=== PATIENT | male | born 1945 | race Caucasian/White ===

== ENCOUNTER → 2016-09-26 | Outpatient (CLI) | payer MEDICARE, MEDICAID ==
[~2016-09-26] MED LIST: ALDA25TA2 PO; CARV3.12 PO; DEMA20TA6 PO; DIGO0.12 PO; DOXY10CA PO; FINA5TAB2 PO; FLOM5CAP PO; GABA-279 PO; GABA800T PO; INSUDET SC; INSUH10VL SC; INSULADS SC; INSULANT SC; LANTINJ4 SC; LASI40TA PO; LIDO4CR TOP; LISI-542 PO; LYRI200C PO; OMEP20TA PO; PLAV75TA38 PO; POLYOPD OU; RANE1000 PO; SENN1TAB2 PO; SPIR25TA2 PO; TAMS0.4C2 PO; TORS20TA2 PO; TRAZ25TA PO
--- NOTE | 2016-09-26 18:01 | REP ---
Chest x-ray: Two views. History: CHF. Hypertension. Dyspnea. Hematuria. Comparison chest x-ray December 31, 2015. Findings: A unipolar pacemaker is seen via the left side. Moderate cardiomegaly is observed. The patient status post prior sternotomy with multiple interrupted metallic sternotomy wires. No free pleural effusion is seen. There is some fissural thickening. Interstitial markings are slightly prominent. Impression: CHF pattern. Slightly prominent interstitial markings improved from December 31, 2015. Cardiomegaly with pacemaker. No acute infiltrate. Signed by Robert Solano MD 09/26/2016 10:14 P
[2016-09-26 18:17] LABS: ALBUMIN 3.9 GM/DL (3.2-5.2); ALBUMIN/GLOBULIN RATIO 1.26 (1.00-1.93); BILIRUBIN,TOTAL 3.1 MG/DL (0.2-1.0); CALCIUM LEVEL 9.2 MG/DL (8.8-10.2); CREATININE FOR GFR 1.45 MG/DL (0.70-1.30); GLOMERULAR FILTRATION RATE 50.9 (>42); POTASSIUM SERUM 3.6 MEQ/L (3.5-5.1)
[2016-09-26 18:35] LABS: MEAN CORPUSCULAR HEMOGLOBIN 28.9 pg (27.0-33.0); MEAN CORPUSCULAR HGB CONC 32.9 g/dl (32.0-36.5); MEAN CORPUSCULAR VOLUME 87.9 fl (80.0-96.0); RED CELL DISTRIBUTION WIDTH 14.1 % (11.5-14.5); WHITE BLOOD COUNT 10.2 K/mm3 (4.0-10.0)
== END ==
LOC: M SMT 14:48
PROVIDERS: ATTEND Internal Medicine Cardiovascular Disease
DX: I50.9 Heart failure, unspecified (principal); I10 Essential (primary) hypertension; I25.10 Atherosclerotic heart disease of native coronary artery without angina pectoris; R06.00 Dyspnea, unspecified; R60.9 Edema, unspecified; R31.9 Hematuria, unspecified

== ENCOUNTER 2016-11-28 15:03 | Inpatient (IN) | payer MEDICARE, MEDICAID ==
[~2016-11-28] VITALS: Ht 162.6 cm; Wt 78.6 kg
[2016-11-28] MEDS ORDERED: FLUTISP (15:27)
[2016-11-28] MEDS ORDERED: FLOM5CAP PO (15:27)
[2016-11-28] MEDS ORDERED: FUROSEMIDE 100 MG/10 ML VIAL (J1940) IV ONE (16:30)
[2016-11-28 17:27] LABS: BASO % 0.4 % (0.0-1.0); EOS # 0.2 K/mm3 (0.0-0.50); EOS % 2.1 % (0.0-3.0); LARGE UNSTAINED CELL # 0.2 K/mm3 (0.0-0.4); LARGE UNSTAINED CELL % 1.8 % (0.0-4.0); LYMPH # 2.3 K/mm3 (1.5-4.5); LYMPH % 22.6 % (24.0-44.0); MEAN CORPUSCULAR HEMOGLOBIN 28.8 pg (27.0-33.0); MEAN CORPUSCULAR HGB CONC 31.8 g/dl (32.0-36.5); MEAN CORPUSCULAR VOLUME 90.6 fl (80.0-96.0); MONO # 0.7 K/mm3 (0.0-0.8); MONO % 7.4 % (0.0-5.0); NEUTROPHILS # 6.6 K/mm3 (1.8-7.7); NEUTROPHILS % 65.7 % (36.0-66.0); PLATELET COUNT, AUTOMATED 159 k/mm3 (150-450)
--- NOTE | 2016-11-28 17:31 | REP ---
AP PORTABLE CHEST: 11/28/2016 at 04:35 PM.: Clinical history: Dyspnea and cough. Comparison: Chest x-ray 09/26/2016, 12/31/2015, portable chest 12/19/2015. Findings: Sternotomy wires with many of the wires fragmented and mediastinal clips unchanged. There is a single lead AICD pacer overlying the left upper chest with lead tip terminating in the right ventricle, unchanged. Cardiomegaly is seen with the heart size somewhat exaggerated by the lordotic portable chest. There is some minimal venous hypertension. No definite right effusion but a moderate-sized left effusion and basilar atelectasis or infiltrate noted. I do not see pneumothorax or pneumomediastinum. The aorta is mildly tortuous. Airway intact bony thorax shows no focal lesion but does have degenerative changes in the spine and shoulders. No free air. Impression: 1. Cardiomegaly with some venous hypertension and moderate sized right effusion with basilar compressive atelectasis or infiltrate. I cannot define a definite left effusion. No pneumothorax, no pneumomediastinum. 2. Single lead AICD pacer with sternotomy wires present which many are fragmented and mediastinal clips, all unchanged. 3. Tortuous aorta unchanged. PA and lateral chest may be helpful when able. Signed by Randy Harrison MD 11/28/2016 08:16 P
[2016-11-28 17:55] LABS: ALBUMIN 3.5 GM/DL (3.2-5.2); ALBUMIN/GLOBULIN RATIO 1.13 (1.00-1.93); BILIRUBIN,DIRECT 0.8 MG/DL (0.0-0.2); BILIRUBIN,TOTAL 2.1 MG/DL (0.2-1.0); CALCIUM LEVEL 8.9 MG/DL (8.8-10.2); CREATININE FOR GFR 1.73 MG/DL (0.70-1.30); GLOMERULAR FILTRATION RATE 41.4 (>42); POTASSIUM SERUM 4.4 MEQ/L (3.5-5.1); TOTAL PROTEIN 6.6 GM/DL (6.4-8.2)
[2016-11-28 18:06] LABS: DIGOXIN LEVEL 1.5 NG/ML (0.5-2.0)
[2016-11-28] MEDS ORDERED: GLUCAGON FOR INJ 1 MG VIAL (J1610) SC PRN (18:30)
[2016-11-28] MEDS ORDERED: GLUCOSE 4 GM CHEW TABLET PO PRN (18:30)
[2016-11-28] MEDS ORDERED: IPRATROPIUM 0.5MG/ALBUTEROL 2.5MG INH SOL UD 3ML (DUONEB)(J7620) NEB PRN (18:30)
[2016-11-28] MEDS ORDERED: DEXTROSE 50% 50 ML SYRINGE IV PRN (18:30)
--- NOTE | 2016-11-28 18:50 | REPUSA ---
CT of the chest without contrast Clinical statement: pleural effusion. Technique: Multiple axial CT images were obtained with 5 mm cuts through the chest without administra tion of contrast. No comparison is available. Findings: There is no thoracic lymphadenopathy. The visualized portions of the thyroid gland is unrem arkable. There are large bilateral pleural effusions with lower lobe infiltrates, greater on the righ t. Limited imaging of the upper abdomen does demonstrate small bilateral ascites. There are no suspic ious osseous lesions. Impression: Large bilateral pleural effusions and lower lobe infiltrates, greater on the right than t he left. Small amount of upper abdominal ascites.
[2016-11-28] MEDS ORDERED: RANO5TAB PO (18:52)
[2016-11-28] MEDS ORDERED: LIDO1OIN2 TOP (18:53)
[2016-11-28] MEDS ORDERED: ASPI1TAB PO (18:55)
[2016-11-28] MEDS ORDERED: FLON1SPR (18:57)
[2016-11-28] MEDS ORDERED: TORS20TA2 PO (18:58)
--- NOTE | 2016-11-28 19:51 | HPE ---
DATE OF ADMISSION: 11/28/2016 PRIMARY CARE PROVIDER: Liliya Newman in [place] DISPATCHER MAINTENANCE: Dr. Sebastian. CODE STATUS: DO NOT RESUSCITATE (DNR) CHIEF COMPLAINT: Shortness of breath. HISTORY OF PRESENT ILLNESS: A 71-year-old gentleman presents to the emergency department after having 5-7 days of increasing shortness of breath, dyspnea on exertion, orthopnea and lower extremity edema. There is some question whether or not he has been compliant with his diuretics at home. He denies substernal chest pain. Denies fevers, chills, rigors, productive sputum. Has had a nonproductive cough and states he gets short of breath doing simple tasks or walking from one room to the next in his house. His bowel movements have been regular. He denies any hematochezia. No melena. He states he has been voiding fine. PAST MEDICAL HISTORY: 1. Congestive heart failure. 2. Chronic hypoxic respiratory failure. 3. Peripheral neuropathy. 4. Obstructive uropathy in the past, seen by urology. 5. Chronic kidney disease. 6. Coronary artery disease. 7. Venous stasis dermatitis of the lower extremities. 8. Morbid obesity which complicates his medical care. 9. Ischemic cardiomyopathy 10. Pulmonary hypertension. 11. Benign prostatic hypertrophy (BPH). 12. Diabetes. PAST SURGICAL HISTORY: 1. Hip arthroplasty, left. 2. Tooth extraction. 3. Coronary artery bypass graft (CABG) procedure and automatic implantable cardioverter defibrillator (AICD) placement. SOCIAL HISTORY: He lives alone. Denies tobacco use. No alcohol use. No recent travel. No sick contacts. FAMILY HISTORY: Noncontributory. ALLERGIES: No known allergies. HOME MEDICATIONS: - aspirin 81 mg daily - carvedilol 3.125 mg twice a day - Plavix 75 mg at bedtime - digoxin 0.125 mg daily - finasteride 5 mg at bedtime - Flonase Allergy one spray per nostril twice a day - Lidoderm ointment applied as directed topically - omeprazole 40 mg at bedtime - Lyrica 200 mg three times a day - Ranexa 500 mg twice a day . - senna one tablet twice a day - spironolactone 25 mg at bedtime - tamsulosin 0.4 mg at bedtime - furosemide 20 mg at bedtime REVIEW OF SYSTEMS: CONSTITUTIONAL: The patient denies fevers, chills or rigors, change in appetite. HEENT: No headache, lightheaded, dizziness, blurry vision, double vision or tinnitus. No difficulty with speech or swallow. PULMONARY: He has had dyspnea on exertion as outlined and nonproductive cough. No wheeze. No hemoptysis. CARDIOVASCULAR: He denies substernal chest pain. Denies palpitations but he has had orthopnea and lower extremity edema. GASTROINTESTINAL (GI): No nausea, vomiting, diarrhea. Bowel movements are regular. Denies any hematochezia or melena. GENITOURINARY (): No dysuria, frequency or hematuria. MUSCULOSKELETAL: No bone, muscle or joint pain, swelling or erythema. NEUROLOGIC: No paresthesias or paralysis. ENDOCRINE: Positive for diabetes. Negative for thyroid disorder. LYMPHATICS: No lumps, bumps, swelling in the neck, axilla or groin. No night sweats. No weight loss. HEMATOLOGY: No bleeding or bruising disorder. No prior history of venous thromboembolism. ONCOLOGY: Negative for cancer. PSYCHIATRIC: No history of suicidal ideation. Denies audiovisual hallucinations. No anxiety. 10-point review of systems complete; pertinent positives are listed. PHYSICAL EXAMINATION: VITAL SIGNS: Temperature is 97, pulse is 94, respiratory rate 18, blood pressure 116/68, SPO2 88% on two liters. GENERAL: The patient appears to be in no acute distress. Is alert and oriented, pleasant talk to. HEENT: Pupils equal, reactive to light and accommodation. Throat clear. NECK: Difficult to obtain jugular venous distention (JVD) due to body habitus. LUNGS: Diminished bibasilar breath sounds, more so on the right. Occasional wheeze clears with cough. HEART: Regular rate and rhythm. ABDOMEN: Obese, soft, nontender, nondistended with positive bowel sounds. EXTREMITIES: He does have 3+ edema just below the knees with some chronic venous stasis changes. No calf tenderness. LABORATORY DATA: White count 10.0, hemoglobin is 14.5, platelets 159,000. Sodium 138, potassium 4.4, chloride 98, bicarb 33, anion gap 7, BUN 41, creatinine 1.73 with a known baseline of around 1.3. Glucose is 148, calcium 8.9, total bilirubin is 2.1, direct bilirubin 0.8, AST 16, ALT 17, alkaline phosphatase 223. CK is 59, CK-MB 4.4, troponin 0.04. BNP is 1390, albumin 3.5. TSH 8.200. Digoxin level is 1.5. IMAGING: Chest x-ray demonstrates cardiomegaly, venous hypertension. He does have elevated right hemidiaphragm with a right pleural effusion. Single lead AICD is in place. Tortuous aorta appears to be unchanged. CT of the chest without contrast: Large bilateral pleural effusions, lower lobe infiltrate greater on the right than left, abdominal ascites. 12-lead EKG: Sinus with first-degree AV block. No acute ST-T wave abnormalities and appears to be unchanged from previous 12-lead EKG dated 12/31/2015. IMPRESSION: Mr. Morejon is a 71-year-old gentleman who presents to the emergency department after having increasing shortness of breath, dyspnea on exertion, paroxysmal nocturnal dyspnea (PND), orthopnea over the last 5-7 days. There is some question of whether or not he has been compliant with his diuretics. He was given Lasix in the emergency department by the ER physician prior to my presenting to evaluate the patient. He has already produced close to a liter to a liter and a half of urine and symptomatically is starting to improve. He will need to be admitted and further optimized with his regimen. PROBLEM LIST: 1. Dyspnea. 2. Peripheral edema, likely from volume overload and questionable medical noncompliance. 3. Prior history of congestive heart failure. 4. Chronic kidney disease (CKD). 5. Coronary artery disease. 6. Venous stasis dermatitis. 7. Morbid obesity which can complicate his medical treatment. 8. Ischemic cardiomyopathy. 9. Chronic hypoxic respiratory failure with history of chronic obstructive pulmonary disease (COPD) and oxygen dependence. 10. Benign prostatic hypertrophy (BPH). 11. Diabetes. PLAN: The patient will be admitted to the progressive care unit (PCU) on telemetry. Will continue with intravenous (IV) Lasix with net negative to two liters a day. Restrict his fluid intake to 1800 mL today. Will hold his diuretics for now since we are using IV Lasix. This will need to be restarted once he is a more euvolemic. Otherwise, his home medications will be continued, deep venous thrombosis (DVT) prophylaxis with heparin. I did place a physical therapy consult due to his deconditioning. DISPOSITION: The patient does appear to be quite volume overloaded. He does have some bilateral pleural effusions. This is likely related to the volume overload status. I would like to see how he does with diuresis overnight. He does not appear to be in any extremis for the time being. Therefore, we will see how he is doing in the morning to see if there needs to be any further intervention with the pleural effusions. However, I do suspect that he should respond well to diuretic therapy. Nonetheless, the patient does have a guarded prognosis due to his multiple comorbidities.
[2016-11-28] MEDS: IPRATROPIUM 0.5MG/ALBUTEROL 2.5MG INH SOL UD 3ML (DUONEB)(J7620) NEB SCH (20:00)
[2016-11-28 20:10] VITALS: BP 131/73
[2016-11-28] MEDS ORDERED: SLF 3 ML SYR IV PRN (20:30)
[2016-11-28] MEDS: TAMSULOSIN 0.4 MG CAP PO SCH (20:49)
[2016-11-28] MEDS: CLOPIDOGREL 75 MG TAB PO SCH (20:49)
[2016-11-28] MEDS: FUROSEMIDE 40 MG/4 ML VIAL (J1940) IV SCH (20:49)
[2016-11-28] MEDS: SENOKOT S TAB PO SCH (20:49)
[2016-11-28] MEDS: OMEPRAZOLE 20 MG CAP PO SCH (20:49)
[2016-11-28] MEDS: ASPIRIN 81 MG ENTERIC TAB PO SCH (20:49)
[2016-11-28] MEDS: FINASTERIDE 5 MG TAB PO SCH (20:49)
[2016-11-28] MEDS: PREGABALIN 100 MG CAP (LYRICA) PO SCH (20:50)
[2016-11-28] MEDS: CARVedilol 3.125 MG TAB PO SCH (20:50)
[2016-11-28] MEDS: HEPARIN SOD (PORCINE) 5000 UNITS/ML VIAL SC SCH (20:50)
[2016-11-28] MEDS: SLF 3 ML SYR IV SCH (20:51)
[2016-11-28] MEDS: HumaLOG INSULIN (NovoLOG) PER UNIT SC SCH (22:11)
[2016-11-28] MEDS: FLUTICASONE PROP 0.05% NASAL SPRAY 16 GM (FLONASE) SCH (22:26)
[2016-11-28] MEDS: LIDOCAINE 5% OINT 30 GM TOP PRN (22:26)
[2016-11-28] MEDS: RANOLAZINE 500 MG ER TAB PO SCH (22:26)
[2016-11-28 23:43] VITALS: BP 118/90
[2016-11-29] MEDS: FUROSEMIDE 40 MG/4 ML VIAL (J1940) IV SCH ×6 (00:38→20:18)
[2016-11-29] MEDS: IPRATROPIUM 0.5MG/ALBUTEROL 2.5MG INH SOL UD 3ML (DUONEB)(J7620) NEB SCH ×4 (02:00→19:19)
[2016-11-29 04:22] VITALS: BP 110/65
[2016-11-29 05:19] LABS: MEAN CORPUSCULAR HEMOGLOBIN 28.7 pg (27.0-33.0); MEAN CORPUSCULAR HGB CONC 32.6 g/dl (32.0-36.5); MEAN CORPUSCULAR VOLUME 87.9 fl (80.0-96.0); RED CELL DISTRIBUTION WIDTH 14.8 % (11.5-14.5)
[2016-11-29 05:45] LABS: ALBUMIN 2.9 GM/DL (3.2-5.2); CALCIUM LEVEL 8.6 MG/DL (8.8-10.2); CREATININE FOR GFR 1.57 MG/DL (0.70-1.30); GLOMERULAR FILTRATION RATE 46.3 (>42); PHOSPHORUS LEVEL 3.8 MG/DL (2.5-4.9); POTASSIUM SERUM 3.9 MEQ/L (3.5-5.1)
[2016-11-29] MEDS: SLF 3 ML SYR IV SCH ×3 (06:27→20:19)
[2016-11-29] MEDS: HEPARIN SOD (PORCINE) 5000 UNITS/ML VIAL SC SCH ×3 (06:27→20:20)
[2016-11-29 08:00] VITALS: BP 124/72
--- NOTE | 2016-11-29 08:30 | ECGEPIP ---
Stationary ECG Study [facility] - ED Test Date: 2016-11-28 Pat Name: TESSA BRADSHAW Department: Room: - Gender: M Winder Tender: concepcion : 1945 Requested By: Omari Law Order Number: [id number] Reading MD: Omari Valenzuela Measurements Intervals [place] Rate: 88 P: 34 [place]: 212 QRS: 121 QRSD: 109 T: 0 QT: 355 QTc: 430 Interpretive Statements SINUS RHYTHM WITH FIRST DEGREE AV BLOCK WITH FREQUENT VENTRICULAR PREMATURE COMPLEXES LOW QRS VOLTAGE IN EXTREMITY LEADS LEFT POSTERIOR FASCICULAR BLOCK Electronically Signed On 11-29-2016 8:29:45 EDT by Omari Valenzuela
[2016-11-29] MEDS: CARVedilol 3.125 MG TAB PO SCH ×2 (08:33→20:18)
[2016-11-29] MEDS: SENOKOT S TAB PO SCH ×2 (08:33→20:18)
[2016-11-29] MEDS: PREGABALIN 100 MG CAP (LYRICA) PO SCH ×3 (08:33→20:18)
[2016-11-29] MEDS: DIGOXIN 0.125 MG TAB PO SCH (08:33)
[2016-11-29] MEDS: RANOLAZINE 500 MG ER TAB PO SCH ×2 (08:33→20:18)
[2016-11-29] MEDS: HumaLOG INSULIN (NovoLOG) PER UNIT SC SCH ×5 (08:34→20:19)
[2016-11-29] MEDS: FLUTICASONE PROP 0.05% NASAL SPRAY 16 GM (FLONASE) SCH ×2 (08:35→20:19)
[2016-11-29 11:38] VITALS: BP 144/60
--- NOTE | 2016-11-29 11:46 | IPNPDOC ---
Text Note Date of Service The patient was seen on 11/29/16. NOTE Subjective: Patient is a 71 year old male with a PMHx of COPD, Pulmonary HTN, CHF , CAD, Ischemic Cardiomyopathy, DM2, CKD3, Hx of Obstructive uropathy, Neuropathy, BPH, Venous stasis ulcer of LE, and Morbid Obesity who presented to the ER with complains of increasing SOB. Patient may not have remained compliant with medications. He was admitted for CHF exacerbation. Patient was seen and examined at the bedside. He notes that his breathing has improved from the time of admission. He still notes bilateral leg pain extending to his toes. Objective: Vitals (See below) General: Lying in bed, no acute distress, comfortable, AAOx3 HEENT: NC, AT CVS: RRR, +S1S2 Lungs: Poor inspirtory effort, no appreciable crackles Abdomen: Soft, ND, NT, +BSx4 Extremities: +PPx4, 2-3+ pitting edema, Venous stasis ulcers noted, - Calf tenderness Assessment and plan: 1. Dyspnea and lower extremity edema - likely 2/2 volume overload - Presented with shortness of breath, no fevers or cough - May not have taken diuretics at home - His oxygenation requirements have decreased over last 24 hours - CXR 11/28: moderate sized R effusion with basilar atelectasis / infiltrate - CT chest 11/28: large b/l pleural effusion and lower lobe infiltrate (R>L), small abdominal ascites - will order ECHO - c/w strict ins/outs, daily weights, and head of bed elevation - will maintain negative fluid balance and fluid restrictions - c/w diuresis with lasix (40 IV q4h) 2. CKD; mild elevation in Cr - possibly cardiorenal syndrome - Baseline Cr around 1.4-1.5 - Improving with diuresis - will follow for now 3. Normocytic anemia - will follow for now 4. CAD / Ischemic cardiomyopathy - s/p AICD - c/w ASA, Plavix, Carvedilol, Digoxin 5. Chronic venous stasis dermatitis 6. COPD - no evidence of exacerbation at this time - c/w duoneb PRN 7. DM2 - c/w ISS 8. BPH - c/w Tamsulosin and Finasteride 9. Morbid obesity - May complicate his medical treatment Disposition: - Will get physical therapy / occupational therapy given his deconditioning VSRamy I+O VS, Fishbone, I+O Laboratory Tests 11/28/16 17:12 Red Blood Count 5.01, Mean Corpuscular Volume 90.6, Mean Corpuscular Hemoglobin 28.8, Mean Corpuscular Hemoglobin Concent 31.8 L, Red Cell Distribution Width 15.0 H, Neutrophils (%) (Auto) 65.7, Lymphocytes (%) (Auto) 22.6 L, Monocytes (% ) (Auto) 7.4 H, Eosinophils (%) (Auto) 2.1, Basophils (%) (Auto) 0.4, Neutrophils # (Auto) 6.6, Lymphocytes # (Auto) 2.3, Monocytes # (Auto) 0.7, Eosinophils # (Auto) 0.2, Basophils # (Auto) 0.0 11/29/16 04:58 Red Blood Count 4.44, Mean Corpuscular Volume 87.9, Mean Corpuscular Hemoglobin 28.7, Mean Corpuscular Hemoglobin Concent 32.6, Red Cell Distribution Width 14.8 H, Anion Gap 7 L Vital Signs Date Time Temp Pulse Resp B/P Pulse Ox O2 Delivery O2 Flow Rate FiO2 11/29/16 08:33 99 11/29/16 08:33 110/65 11/29/16 08:00 98.0 18 99 Nasal Cannula 1.0 I&O- Last 24 Hours up to 6 AM 11/29/16 05:59 Intake Total 480 ml Output Total 1125 ml Balance -645 ml LUZMARIA SHEIKH MD Nov 29, 2016 11:46
[2016-11-29 15:55] VITALS: BP 107/56
[2016-11-29 20:04] VITALS: BP 103/78
[2016-11-29] MEDS: ASPIRIN 81 MG ENTERIC TAB PO SCH (20:18)
[2016-11-29] MEDS: CLOPIDOGREL 75 MG TAB PO SCH (20:19)
[2016-11-29] MEDS: OMEPRAZOLE 20 MG CAP PO SCH (20:19)
[2016-11-29] MEDS: FINASTERIDE 5 MG TAB PO SCH (20:19)
[2016-11-29] MEDS: TAMSULOSIN 0.4 MG CAP PO SCH (20:19)
[2016-11-29] MEDS: LIDOCAINE 5% OINT 30 GM TOP PRN (20:44)
[2016-11-29 23:39] VITALS: BP 100/54
[2016-11-30] MEDS: FUROSEMIDE 40 MG/4 ML VIAL (J1940) IV SCH ×2 (00:33)
[2016-11-30] MEDS: BISACODYL 10 MG SUPP PR PRN (00:47)
[2016-11-30] MEDS: FUROSEMIDE 20 MG/2 ML VIAL (J1940) IV SCH ×2 (00:47→04:28)
[2016-11-30] MEDS: IPRATROPIUM 0.5MG/ALBUTEROL 2.5MG INH SOL UD 3ML (DUONEB)(J7620) NEB SCH ×4 (02:16→20:00)
[2016-11-30 04:22] VITALS: BP 104/71
[2016-11-30] MEDS: SLF 3 ML SYR IV SCH ×3 (04:29→22:00)
[2016-11-30] MEDS: HEPARIN SOD (PORCINE) 5000 UNITS/ML VIAL SC SCH ×2 (04:29→11:51)
[2016-11-30 04:59] LABS: MEAN CORPUSCULAR HEMOGLOBIN 29.2 pg (27.0-33.0); MEAN CORPUSCULAR HGB CONC 32.5 g/dl (32.0-36.5); WHITE BLOOD COUNT 8.8 K/mm3 (4.0-10.0)
[2016-11-30 05:11] LABS: ALBUMIN 3.1 GM/DL (3.2-5.2); CALCIUM LEVEL 8.4 MG/DL (8.8-10.2); CREATININE FOR GFR 1.88 MG/DL (0.70-1.30); GLOMERULAR FILTRATION RATE 37.6 (>42); POTASSIUM SERUM 3.9 MEQ/L (3.5-5.1)
[2016-11-30] MEDS: HumaLOG INSULIN (NovoLOG) PER UNIT SC SCH ×4 (07:30→21:00)
[2016-11-30 08:00] VITALS: BP 99/65
[2016-11-30] MEDS: PREGABALIN 100 MG CAP (LYRICA) PO SCH ×3 (09:04→21:03)
[2016-11-30] MEDS: RANOLAZINE 500 MG ER TAB PO SCH ×2 (09:04→21:03)
[2016-11-30] MEDS: DIGOXIN 0.125 MG TAB PO SCH (09:04)
[2016-11-30] MEDS: FLUTICASONE PROP 0.05% NASAL SPRAY 16 GM (FLONASE) SCH ×2 (09:05→21:18)
[2016-11-30] MEDS: SENOKOT S TAB PO SCH ×2 (09:05→21:04)
[2016-11-30] MEDS: DOCUSATE SODIUM 100 MG CAP PO SCH ×2 (09:19→21:03)
--- NOTE | 2016-11-30 09:44 | ECHO ---
DATE OF PROCEDURE: 11/29/2016 REFERRING PHYSICIAN: Subha Doyle MD PATIENT LOCATION: Room 3212 REASON FOR ECHOCARDIOGRAM: Shortness of breath. 2D MEASUREMENTS: IVS: 0.9 LV: 5.3 cm LVPW: 0.9 cm LA: 4.0 cm Aorta: 2.9 cm DOPPLER MEASUREMENTS: Peak velocity across the aortic valve: 1.2 m/s Peak velocity across the LVOT: 0.96 m/s Mitral E: 1.2, Mitral A: 0.42, with a ratio of 2.83 Maximum tricuspid valve velocity: 2.6 m/s 2D COMMENTS: 1. Normal left ventricular size with normal left ventricular wall thickness, but a markedly depressed global left ventricular systolic function. The apex as well as the anterior septum were markedly hypokinetic. The inferior wall is mildly to moderately hypokinetic. The estimated global left ventricular systolic ejection fraction is 20 to 25%. 2. The right atrium appeared to be mildly enlarged on limited views as well as the right ventricle. The right ventricular free wall was not well visualized. Borderline enlarged left atrium. 3. The atrial septum appeared to be normal without evidence of defect or shunt. 4. Normal aortic root. 5. No pericardial effusion seen, but there are findings consistent with probably ascites. 6. Minimally calcified aortic valve with normal leaflet excursion. Normal mitral valve, tricuspid valve and pulmonic valve. The proximal pulmonary artery branches were not well visualized. 7. The inferior vena cava was not well visualized. DOPPLER: It detects moderate mitral regurgitation and mild tricuspid regurgitation. The calculated pulmonary artery systolic pressure varies between 30 to 40 mmHg. A restrictive mitral inflow pattern was noted across the mitral valve leaflets and this may be a poor cardiac prognostic marker. IMPRESSION: 1. Severe global left ventricular systolic dysfunction with regional wall motion abnormalities consistent with history of coronary artery disease. There were features of left ventricular diastolic dysfunction, restrictive in nature. 2. Borderline enlarged left atrium with moderate mitral regurgitation. 3. Aortic valve sclerosis without stenosis or aortic regurgitation. 4. Mild tricuspid regurgitation with mild pulmonary hypertension. 5. AICD wire artifact noted in the right heart chambers. 6. The right heart chambers appeared to be mildly enlarged, but were not well visualized. 7. There were features that may be related to ascites, therefore, an abdominal ultrasound may help for further evaluation. MTDD
--- NOTE | 2016-11-30 10:46 | IPNPDOC ---
Text Note Date of Service The patient was seen on 11/30/16. NOTE Subjective: Patient is a 71 year old male with a PMHx of COPD, Pulmonary HTN, CHF , CAD, Ischemic Cardiomyopathy, DM2, CKD3, Hx of Obstructive uropathy, Neuropathy, BPH, Venous stasis ulcer of LE, and Morbid Obesity who presented to the ER with complains of increasing SOB. Patient may not have remained compliant with medications. He was admitted for CHF exacerbation. Patient was seen and examined at the bedside. He notes that his leg swelling has improved to that point that he can ambulate. He denies any shortness of breath or chest pain. He does note that he is coughing at night more so than usual. Objective: Vitals (See below) General: Lying in bed, no acute distress, comfortable, AAOx3 HEENT: NC, AT CVS: RRR, +S1S2 Lungs: Poor inspiratory effort, no appreciable crackles Abdomen: Soft, ND, NT, +BSx4 Extremities: +PPx4, 2+ pitting edema, Venous stasis ulcers noted, - Calf tenderness Assessment and plan: 1. Dyspnea and lower extremity edema - likely 2/2 volume overload - 2/2 acute decompensated systolic and diastolic heart failure - likely 2/2 non-compliance - Presented with shortness of breath, no fevers or cough - Currently saturating well without supplemental oxygen - CXR 11/28: moderate sized R effusion with basilar atelectasis / infiltrate - CT chest 11/28: large b/l pleural effusion and lower lobe infiltrate (R>L), small abdominal ascites - ECHO 11/30: EF: 20-25%; Diastolic Dysfunction - c/w strict ins/outs, daily weights, and head of bed elevation - will maintain negative fluid balance and fluid restrictions - c/w diuresis with lasix (Will change to 60 IV q12h with holding parameters) - c/w Physical therapy until able to ambulate safely for discharge home 2. CKD; mild elevation in Cr - possibly cardiorenal syndrome - Baseline Cr around 1.4-1.5 - Cr currently at 1.88 - Will reduce the frequency of lasix - will follow for now 3. Normocytic anemia - will follow for now 4. CAD / Ischemic cardiomyopathy - s/p AICD - c/w ASA, Plavix, Carvedilol, Digoxin 5. Chronic venous stasis dermatitis 6. COPD - no evidence of exacerbation at this time - c/w duoneb PRN - will add advair 7. DM2 - c/w ISS 8. BPH - c/w Tamsulosin and Finasteride 9. Morbid obesity - May complicate his medical treatment 10. Constipation - Received suppository yesterday with relief - will start docusate sodium 11. DVT prophylaxis - c/w heparin Disposition: - Awaiting clearance with physical therapy - Will transition IV lasix to PO diuretics VS,Fishbone, I+O VS, Fishbone, I+O Laboratory Tests 11/30/16 04:40 Anion Gap 11, Red Blood Count 4.50, Mean Corpuscular Volume 90.0, Mean Corpuscular Hemoglobin 29.2, Mean Corpuscular Hemoglobin Concent 32.5, Red Cell Distribution Width 15.0 H Vital Signs Date Time Temp Pulse Resp B/P Pulse Ox O2 Delivery O2 Flow Rate FiO2 11/30/16 09:04 86 11/30/16 08:00 97.3 18 99/65 100 Room Air 11/30/16 07:39 3.0 I&O- Last 24 Hours up to 6 AM 11/30/16 06:00 Intake Total 1380 ml Output Total 1975 ml Balance -595 ml LUZMARIA SHEIKH MD Nov 30, 2016 10:45
[2016-11-30 12:00] VITALS: BP 127/56
[2016-11-30] MEDS: ADVAIR DISKUS 250/50 INH PWD INH SCH ×2 (12:20→20:00)
[2016-11-30 16:00] VITALS: BP 110/68
[2016-11-30 20:00] VITALS: BP 95/59
[2016-11-30] MEDS ORDERED: FUROSEMIDE 100 MG/10 ML VIAL (J1940) IV SCH (20:00)
[2016-11-30] MEDS: ASPIRIN 81 MG ENTERIC TAB PO SCH (21:03)
[2016-11-30] MEDS: OMEPRAZOLE 20 MG CAP PO SCH (21:03)
[2016-11-30] MEDS: FINASTERIDE 5 MG TAB PO SCH (21:03)
[2016-11-30] MEDS: TAMSULOSIN 0.4 MG CAP PO SCH (21:03)
[2016-11-30] MEDS: CLOPIDOGREL 75 MG TAB PO SCH (21:03)
[2016-11-30] MEDS: LIDOCAINE 5% OINT 30 GM TOP PRN (21:07)
[2016-11-30] MEDS: CARVedilol 3.125 MG TAB PO SCH (21:18)
[2016-11-30 21:23] VITALS: BP 104/58
[2016-12-01] VITALS (7 sets, daily range): BP systolic 102–125; BP diastolic 62–72
[2016-12-01] MEDS: IPRATROPIUM 0.5MG/ALBUTEROL 2.5MG INH SOL UD 3ML (DUONEB)(J7620) NEB SCH ×4 (01:28→20:00)
[2016-12-01 05:42] LABS: MEAN CORPUSCULAR HEMOGLOBIN 28.1 pg (27.0-33.0); MEAN CORPUSCULAR HGB CONC 31.6 g/dl (32.0-36.5); MEAN CORPUSCULAR VOLUME 89.2 fl (80.0-96.0); RED CELL DISTRIBUTION WIDTH 14.9 % (11.5-14.5); WHITE BLOOD COUNT 8.4 K/mm3 (4.0-10.0)
[2016-12-01 05:56] LABS: ALBUMIN 2.9 GM/DL (3.2-5.2); CALCIUM LEVEL 8.8 MG/DL (8.8-10.2); CREATININE FOR GFR 1.72 MG/DL (0.70-1.30); GLOMERULAR FILTRATION RATE 41.7 (>42); PHOSPHORUS LEVEL 3.7 MG/DL (2.5-4.9)
[2016-12-01] MEDS: SLF 3 ML SYR IV SCH ×3 (06:43→21:48)
[2016-12-01] MEDS: ADVAIR DISKUS 250/50 INH PWD INH SCH ×2 (07:34→21:36)
[2016-12-01] MEDS: NYSTATIN 100,000 UNITS/GM TOPICAL PWD 15 GM TOP PRN (09:21)
[2016-12-01] MEDS: RANOLAZINE 500 MG ER TAB PO SCH ×2 (09:21→21:45)
[2016-12-01] MEDS: HumaLOG INSULIN (NovoLOG) PER UNIT SC SCH ×4 (09:22→21:00)
[2016-12-01] MEDS: SENOKOT S TAB PO SCH ×2 (09:22→21:46)
[2016-12-01] MEDS: DOCUSATE SODIUM 100 MG CAP PO SCH ×2 (09:22→21:46)
[2016-12-01] MEDS: DIGOXIN 0.125 MG TAB PO SCH (09:22)
[2016-12-01] MEDS: PREGABALIN 100 MG CAP (LYRICA) PO SCH ×3 (09:22→21:46)
[2016-12-01] MEDS: FLUTICASONE PROP 0.05% NASAL SPRAY 16 GM (FLONASE) SCH ×2 (09:23→21:48)
[2016-12-01] MEDS: CARVedilol 3.125 MG TAB PO SCH ×2 (09:43→21:47)
--- NOTE | 2016-12-01 10:24 | IPNPDOC ---
Text Note Date of Service The patient was seen on 12/01/16. NOTE Subjective: Patient is a 71 year old male with a PMHx of COPD, Pulmonary HTN, CHF , CAD, Ischemic Cardiomyopathy, DM2, CKD3, Hx of Obstructive uropathy, Neuropathy, BPH, Venous stasis ulcer of LE, and Morbid Obesity who presented to the ER with complains of increasing SOB. Patient may not have remained compliant with medications. He was admitted for CHF exacerbation. Patient was seen and examined at the bedside. He reports that he has had some bleeding from his rectum yesterday. Reports that his breathing has improved but not at baseline. He notes his lower extremities are still swollen, but improving. Objective: Vitals (See below) General: Lying in bed, no acute distress, comfortable, AAOx3 HEENT: NC, AT CVS: RRR, +S1S2 Lungs: Poor inspiratory effort, no appreciable crackles Abdomen: Soft, ND, NT, +BSx4 Extremities: +PPx4, 2+ pitting edema, Venous stasis ulcers noted, - Calf tenderness Assessment and plan: 1. Dyspnea and lower extremity edema - likely 2/2 volume overload - 2/2 acute decompensated systolic and diastolic heart failure - likely 2/2 non-compliance - Presented with shortness of breath, no fevers or cough - Currently saturating well without supplemental oxygen - CXR 11/28: moderate sized R effusion with basilar atelectasis / infiltrate - CT chest 11/28: large b/l pleural effusion and lower lobe infiltrate (R>L), small abdominal ascites - ECHO 11/30: EF: 20-25%; Diastolic Dysfunction - c/w strict ins/outs, daily weights, and head of bed elevation - will maintain negative fluid balance and fluid restrictions - c/w diuresis with lasix; will reduce lasix to 40 IV q12h with adjusted parameters (previous parameters prevented lasix administration) - c/w Physical therapy until able to ambulate safely for discharge home 2. CKD; mild elevation in Cr - possibly cardiorenal syndrome - Baseline Cr around 1.4-1.5 - Cr currently at 1.72 - will follow for now 3. Normocytic anemia - will follow for now 4. CAD / Ischemic cardiomyopathy - s/p AICD - c/w ASA, Plavix, Carvedilol, Digoxin 5. Chronic venous stasis dermatitis 6. COPD - no evidence of exacerbation at this time - c/w duoneb PRN and Advair 7. DM2 - c/w ISS 8. BPH - c/w Tamsulosin and Finasteride 9. Morbid obesity - May complicate his medical treatment 10. Constipation - s/p suppository - c/w docusate sodium 11. DVT prophylaxis - c/w heparin Disposition: - Awaiting clearance from physical therapy - c/w lasix IV until lower extremity edema improves; then will transition to PO Lasix VS,Fishbone, I+O VS, Fishbone, I+O Laboratory Tests 11/30/16 12:22 11/30/16 18:33 12/01/16 04:50 Anion Gap 7 L, Red Blood Count 4.42, Mean Corpuscular Volume 89.2, Mean Corpuscular Hemoglobin 28.1, Mean Corpuscular Hemoglobin Concent 31.6 L, Red Cell Distribution Width 14.9 H Vital Signs Date Time Temp Pulse Resp B/P Pulse Ox O2 Delivery O2 Flow Rate FiO2 12/01/16 09:43 89 105/69 12/01/16 08:00 Room Air 12/01/16 07:15 97.3 20 94 11/30/16 20:00 2.0 I&O- Last 24 Hours up to 6 AM 12/01/16 06:00 Intake Total 1290 ml Output Total 925 ml Balance 365 ml LUZMARIA SHEIKH MD Dec 01, 2016 10:24
[2016-12-01] MEDS: FUROSEMIDE 100 MG/10 ML VIAL (J1940) IV SCH ×2 (12:32→23:44)
[2016-12-01] MEDS: TAMSULOSIN 0.4 MG CAP PO SCH (21:46)
[2016-12-01] MEDS: CLOPIDOGREL 75 MG TAB PO SCH (21:46)
[2016-12-01] MEDS: OMEPRAZOLE 20 MG CAP PO SCH (21:46)
[2016-12-01] MEDS: ASPIRIN 81 MG ENTERIC TAB PO SCH (21:46)
[2016-12-01] MEDS: FINASTERIDE 5 MG TAB PO SCH (21:46)
[2016-12-01] MEDS: LIDOCAINE 5% OINT 30 GM TOP PRN (23:46)
[2016-12-02] VITALS (7 sets, daily range): BP systolic 102–168; BP diastolic 55–81
[2016-12-02] MEDS: IPRATROPIUM 0.5MG/ALBUTEROL 2.5MG INH SOL UD 3ML (DUONEB)(J7620) NEB SCH ×4 (01:12→20:00)
[2016-12-02] MEDS: SLF 3 ML SYR IV SCH ×3 (05:31→21:48)
[2016-12-02 05:32] LABS: MEAN CORPUSCULAR HEMOGLOBIN 28.6 pg (27.0-33.0); MEAN CORPUSCULAR HGB CONC 31.9 g/dl (32.0-36.5); MEAN CORPUSCULAR VOLUME 89.8 fl (80.0-96.0); WHITE BLOOD COUNT 9.6 K/mm3 (4.0-10.0)
[2016-12-02 05:33] LABS: ALBUMIN 3.1 GM/DL (3.2-5.2); CALCIUM LEVEL 8.8 MG/DL (8.8-10.2); CREATININE FOR GFR 1.95 MG/DL (0.70-1.30); GLOMERULAR FILTRATION RATE 36.1 (>42); PHOSPHORUS LEVEL 3.4 MG/DL (2.5-4.9); POTASSIUM SERUM 4.2 MEQ/L (3.5-5.1)
[2016-12-02] MEDS: LIDOCAINE 5% OINT 30 GM TOP PRN (05:37)
[2016-12-02] MEDS: ADVAIR DISKUS 250/50 INH PWD INH SCH ×2 (07:06→20:23)
[2016-12-02] MEDS: HumaLOG INSULIN (NovoLOG) PER UNIT SC SCH ×4 (07:30→21:28)
[2016-12-02] MEDS: RANOLAZINE 500 MG ER TAB PO SCH ×2 (09:24→21:48)
[2016-12-02] MEDS: DIGOXIN 0.125 MG TAB PO SCH (09:25)
[2016-12-02] MEDS: DOCUSATE SODIUM 100 MG CAP PO SCH ×2 (09:25→21:49)
[2016-12-02] MEDS: CARVedilol 3.125 MG TAB PO SCH ×2 (09:26→21:49)
[2016-12-02] MEDS: PREGABALIN 100 MG CAP (LYRICA) PO SCH ×3 (09:26→21:49)
[2016-12-02] MEDS: SENOKOT S TAB PO SCH ×2 (09:27→21:48)
[2016-12-02] MEDS: FLUTICASONE PROP 0.05% NASAL SPRAY 16 GM (FLONASE) SCH ×2 (09:28→21:50)
[2016-12-02] MEDS: FUROSEMIDE 40 MG/4 ML VIAL (J1940) IV SCH ×3 (11:30→19:48)
[2016-12-02] MEDS: AZITHROMYCIN INJ 500 MG, VIAL MATE ADAPTER 1 EACH in D5W 250 ML IV SCH (14:15)
[2016-12-02] MEDS: cefTRIAXone SOD 1 GM in D5W MINI-BAG PLUS 50 ML IV SCH (14:15)
[2016-12-02 14:18] LABS: ABG BASE EXCESS 1.5 (-2.0-2.0); ABG HCO3 25.7 MEQ/L (22.0-26.0); ABG PARTIAL PRESSURE CO2 39.5 mmHg (35.0-45.0); ABG STANDARD HCO3 25.7 MEQ/L (22.0-26.0); ABG pH (ARTERIAL) 7.432 UNITS (7.350-7.450)
--- NOTE | 2016-12-02 14:39 | REP ---
PORTABLE CHEST: AP portable view of the chest is performed. COMPARISON: 11/28/2016 Moderate right effusion and adjacent right base infiltrate has mildly increased. There is mild left retrocardiac infiltrate/atelectasis. The cardiomediastinal silhouette has not definitely changed. Left pacemaker is again noted as well as multiple sternal wires and mediastinal clips present. IMPRESSION: Mild increase in right effusion and right lung infiltrates. There appears to be mild left retrocardiac infiltrates/atelectasis. Signed by Sahil Marinelli MD 12/02/2016 04:41 P
--- NOTE | 2016-12-02 15:59 | IPNPDOC ---
Subjective Date Seen The patient was seen on 12/02/16. Subjective Chief Complaint/HPI The patient is a 71-year-old male admitted with a reason for visit of Dyspnea; Peripheral Edema. General: Reports: Fatigue, Denies: Chills, Night Sweats Constitutional: Reports: Fever, Denies: Chills Eyes: Denies: Pain, Vision change ENT: Denies: Ear Pain, Head Aches Skin: Denies: Lesions, Rash Pulmonary: Reports: Cough, Dyspnea Cardiovascular: Denies: Chest Pain, Palpitations Gastrointestinal: Denies: Nausea, Vomiting Genitourinary: Denies: Dysuria, Frequency Hematologic: Denies: Bleeding Excessively, Bruising Objective Physical Examination General Exam: Positive: Alert, Cooperative, No Acute Distress ENT Exam: Positive: Atraumatic, Mucous membr. moist/pink Neck Exam: Positive: JVD Chest Exam: Positive: Rales (Bibasilar), Negative: Rhonchi, Wheezing Heart Exam: Positive: Normal S1, Normal S2, Rate Normal Abdomen Exam: Positive: Soft, Negative: Tenderness Extremity Exam: Positive: Swelling (2+ pitting edema in the lower extremities bilaterally), Negative: Tenderness Skin Exam: Positive: Other skin issue (Patient noted to have non-erythematous chronic venous ulcers noted on the lower extremities B/L, no active bleeding or drainage noted. ) Assessment /Plan Plan/VTE VTE Prophylaxis Ordered?: Yes Plan SOB 2/2 Acutely decompensated systolic and diastolic heart failure likely 2/2 non-compliance CXR 11/28 notable for moderate sized R effusion with basilar atelectasis / infiltrate CT chest 11/28 notable for large b/l pleural effusion and lower lobe infiltrate ( R>L), small abdominal ascites ECHO / notable for EF 20-25%; Diastolic Dysfunction Patient with a net negative of only 400 cc's at the present time Will diurese the patient more aggressively with Lasix 40mg q4h, as the patient still appears to be volume overloaded at this time Cont Daily Weight, Strict I/O's Will cont to monitor the patient's respiratory status Fever, Cough possibly 2/2 CAP Patient noted to have infiltrates on Chest CT on 11/28, and on repeat CXR today Patient also did spike a fever Blood Cultures ordered Started on Rocephin, Zithro Acute Superimposed on Chronic Kidney Disease likely 2/2 Cardio-Renal syndrome Baseline Cr around 1.5-1.7 Serum Cr currently at 1.98 Will assess the patient's response to diuretic therapy Normocytic anemia, stable Cont to monitor CAD, Ischemic cardiomyopathy s/p AICD Cont ASA, Plavix, Carvedilol, Digoxin Chronic venous stasis dermatitis Wound care consulted COPD Cont duoneb PRN and Advair DM2 Continue with ISS BPH Cont Tamsulosin and Finasteride Morbid obesity Complicates Medical Treatment Constipation Cont docusate sodium DVT prophylaxis Cont heparin 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, 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 given the patient's Ischemic Cardiomyopathy, COPD, and CKD Dispo: Will cont to follow up with patient's respiratory status, PT recommendations VS, I&O, 24H, [facility] Vital Signs/I&O Vital Signs Date Time Temp Pulse Resp B/P Pulse Ox O2 Delivery O2 Flow Rate FiO2 12/02/16 11:26 99.3 101 22 131/81 98 Nasal Cannula 3.0 I&O- Last 24 Hours up to 6 AM 12/02/16 06:00 Intake Total 1260 ml Output Total 1100 ml Balance 160 ml Laboratory Data 24H LABS Laboratory Tests 2 12/01/16 21:34: Bedside Glucose (Misc Panel) 149H 12/02/16 05:00: Albumin 3.1L, Blood Urea Nitrogen 41H, Creatinine 1.95H, Sodium Level 133L, Potassium Level 4.2, Chloride Level 96L, Carbon Dioxide Level 30, Anion Gap 7L, Calcium Level 8.8, Glomerular Filtration Rate 36.1L, Phosphorus Level 3.4 12/02/16 11:09: Bedside Glucose (Misc Panel) 179H 12/02/16 14:06: Arterial Blood pH 7.432, Arterial Blood Partial Pressure CO2 39.5, Arterial Blood Partial Pressure O2 76.0, Arterial Blood Total CO2 27.0, Arterial Blood HCO3 25.7, Arterial Blood Base Excess 1.5, Arterial Blood Oxygen Saturation 95.5 , Blood Gas Bicarbonate Standard 25.7 CBC/BMP Laboratory Tests 12/02/16 05:00 Anion Gap 7 L, Red Blood Count 4.58, Mean Corpuscular Volume 89.8, Mean Corpuscular Hemoglobin 28.6, Mean Corpuscular Hemoglobin Concent 31.9 L, Red Cell Distribution Width 15.0 H Microbiology Microbiology 12/02/16 Blood Culture, Received Pending 4/4/17 Blood Culture, Received Pending REBECCA REILLY MD Dec 02, 2016 15:59
[2016-12-02] MEDS: ACETAMINOPHEN TAB 650MG DOSE (2X325MG) PO PRN (19:47)
[2016-12-02] MEDS: OMEPRAZOLE 20 MG CAP PO SCH (21:48)
[2016-12-02] MEDS: FINASTERIDE 5 MG TAB PO SCH (21:49)
[2016-12-02] MEDS: CLOPIDOGREL 75 MG TAB PO SCH (21:49)
[2016-12-02] MEDS: ASPIRIN 81 MG ENTERIC TAB PO SCH (21:49)
[2016-12-02] MEDS: HEPARIN SOD (PORCINE) 5000 UNITS/ML VIAL SQ SCH (21:49)
[2016-12-02] MEDS: TAMSULOSIN 0.4 MG CAP PO SCH (21:49)
[2016-12-03] VITALS (8 sets, daily range): BP systolic 100–120; BP diastolic 55–76
[2016-12-03] MEDS: FUROSEMIDE 40 MG/4 ML VIAL (J1940) IV SCH ×6 (00:27→21:05)
[2016-12-03] MEDS: cefTRIAXone SOD 1 GM in D5W MINI-BAG PLUS 50 ML IV SCH ×2 (00:35→14:23)
[2016-12-03] MEDS: IPRATROPIUM 0.5MG/ALBUTEROL 2.5MG INH SOL UD 3ML (DUONEB)(J7620) NEB SCH ×5 (01:12→19:19)
[2016-12-03] MEDS: ACETAMINOPHEN TAB 650MG DOSE (2X325MG) PO PRN ×3 (04:01→21:09)
[2016-12-03] MEDS: HEPARIN SOD (PORCINE) 5000 UNITS/ML VIAL SQ SCH ×3 (05:09→21:06)
[2016-12-03] MEDS: SLF 3 ML SYR IV SCH ×3 (05:09→21:10)
[2016-12-03 05:59] LABS: MEAN CORPUSCULAR HEMOGLOBIN 28.6 pg (27.0-33.0); MEAN CORPUSCULAR HGB CONC 32.1 g/dl (32.0-36.5); MEAN CORPUSCULAR VOLUME 88.9 fl (80.0-96.0); RED CELL DISTRIBUTION WIDTH 14.9 % (11.5-14.5); WHITE BLOOD COUNT 9.9 K/mm3 (4.0-10.0)
[2016-12-03 06:10] LABS: ALBUMIN 2.8 GM/DL (3.2-5.2); CALCIUM LEVEL 8.4 MG/DL (8.8-10.2); CREATININE FOR GFR 1.77 MG/DL (0.70-1.30); GLOMERULAR FILTRATION RATE 40.3 (>42); PHOSPHORUS LEVEL 3.1 MG/DL (2.5-4.9); POTASSIUM SERUM 3.7 MEQ/L (3.5-5.1)
[2016-12-03] MEDS: HumaLOG INSULIN (NovoLOG) PER UNIT SC SCH ×4 (07:30→20:50)
[2016-12-03] MEDS ORDERED: POTASSIUM CHLORIDE 10 MEQ SR TABLET PO ONE (08:00)
[2016-12-03] MEDS: ADVAIR DISKUS 250/50 INH PWD INH SCH ×2 (08:14→21:02)
[2016-12-03] MEDS: PREGABALIN 100 MG CAP (LYRICA) PO SCH ×3 (08:34→21:06)
[2016-12-03] MEDS: RANOLAZINE 500 MG ER TAB PO SCH ×2 (08:34→21:08)
[2016-12-03] MEDS: DOCUSATE SODIUM 100 MG CAP PO SCH ×2 (08:34→21:08)
[2016-12-03] MEDS: SENOKOT S TAB PO SCH ×2 (08:34→21:08)
[2016-12-03] MEDS: CARVedilol 3.125 MG TAB PO SCH ×2 (08:35→21:08)
[2016-12-03] MEDS: FLUTICASONE PROP 0.05% NASAL SPRAY 16 GM (FLONASE) SCH ×2 (08:35→21:09)
[2016-12-03] MEDS: DIGOXIN 0.125 MG TAB PO SCH (08:35)
[2016-12-03] MEDS: AZITHROMYCIN INJ 500 MG, VIAL MATE ADAPTER 1 EACH in D5W 250 ML IV SCH (12:32)
--- NOTE | 2016-12-03 13:39 | IPNPDOC ---
Subjective Date Seen The patient was seen on 12/03/16. Subjective Chief Complaint/HPI The patient is a 71-year-old male admitted with a reason for visit of Dyspnea; Peripheral Edema. General: Denies: Chills, Night Sweats Constitutional: Denies: Chills, Fever Eyes: Denies: Pain, Vision change ENT: Denies: Ear Pain, Head Aches Skin: Denies: Lesions, Rash Pulmonary: Denies: Cough, Dyspnea Cardiovascular: Denies: Chest Pain, Palpitations Gastrointestinal: Denies: Nausea, Vomiting Genitourinary: Denies: Dysuria, Frequency Hematologic: Denies: Bleeding Excessively, Bruising Musculoskeletal: Denies: Back Pain, Neck Pain Objective Physical Examination General Exam: Positive: Alert, Cooperative, No Acute Distress ENT Exam: Positive: Atraumatic, Mucous membr. moist/pink Neck Exam: Positive: JVD Chest Exam: Positive: Rales Heart Exam: Positive: Normal S1, Normal S2, Rate Normal Abdomen Exam: Positive: Soft Extremity Exam: Positive: Swelling Skin Exam: Positive: Other skin issue Assessment /Plan Plan/VTE VTE Prophylaxis Ordered?: Yes Plan SOB 2/2 Acutely decompensated systolic and diastolic heart failure likely 2/2 non-compliance CXR 11/28 notable for moderate sized R effusion with basilar atelectasis / infiltrate CT chest 11/28 notable for large b/l pleural effusion and lower lobe infiltrate ( R>L), small abdominal ascites ECHO 11/29 notable for EF 20-25%; Diastolic Dysfunction Patient with an additional net negative of 350 cc's over last 24 hours, and notes improvement of SOB Will diurese the patient more aggressively with Lasix 40mg q4h Cont Daily Weight, Strict I/O's Will cont to monitor the patient's respiratory status SOB, Cough possibly 2/2 CAP Patient noted to have infiltrates on Chest CT on 11/28, and on repeat CXR on 12/02 Sputum Cultures pending Resp panel negative Continue on Rocephin, Zithro WBC wnl, Hemodynamically stable, Afebrile as of this AM Preliminary Blood Cultures Positive x 2 Notable for Gram Positive Cocci in Clusters Possibly a contaminant? Possible source(s) include CAP, chronic venous stasis wounds (though do not clinically appear to be actively infected), the patient also does have an AICD as a possible source of infection--although a 2D ECHO from 11/29 revealed no overt source of infection Patient has a normal WBC, is hemodynamically stable, and has been afebrile as of this AM We will continue to monitor the patient's status, and follow up with repeat cultures Will consider broadening antibiotics if the patient spikes a fever, or repeat cultures are positive Acute Superimposed on Chronic Kidney Disease likely 2/2 Cardio-Renal syndrome Baseline Cr around 1.5-1.7 Serum Cr improved following aggressive diuresis--> Cr currently at 1.7 Will continue to assess the patient's response to diuretic therapy Normocytic anemia, stable Cont to monitor CAD, Ischemic cardiomyopathy s/p AICD Cont ASA, Plavix, Carvedilol, Digoxin Chronic venous stasis dermatitis Wound care consulted COPD Cont duoneb PRN and Advair DM2 Continue with ISS BPH Cont Tamsulosin and Finasteride Morbid obesity Complicates Medical Treatment Constipation Cont docusate sodium DVT prophylaxis Cont heparin 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, 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 given the patient's Ischemic Cardiomyopathy, COPD, and CKD Dispo: Will cont to follow up with patient's respiratory status, PT recommendations VS, I&O, 24H, [facility] Vital Signs/I&O Vital Signs Date Time Temp Pulse Resp B/P Pulse Ox O2 Delivery O2 Flow Rate FiO2 12/03/16 12:15 98.2 89 18 100/55 95 Nasal Cannula 3.0 I&O- Last 24 Hours up to 6 AM 12/03/16 06:00 Intake Total 580 ml Output Total 1200 ml Balance -620 ml Laboratory Data 24H LABS Laboratory Tests 2 12/02/16 14:06: Arterial Blood pH 7.432, Arterial Blood Partial Pressure CO2 39.5, Arterial Blood Partial Pressure O2 76.0, Arterial Blood Total CO2 27.0, Arterial Blood HCO3 25.7, Arterial Blood Base Excess 1.5, Arterial Blood Oxygen Saturation 95.5 , Blood Gas Bicarbonate Standard 25.7 12/02/16 21:03: Bedside Glucose (Misc Panel) 150H 12/03/16 05:02: Albumin 2.8L, Blood Urea Nitrogen 41H, Creatinine 1.77H, Sodium Level 135L, Potassium Level 3.7, Chloride Level 97L, Carbon Dioxide Level 29, Anion Gap 9, Calcium Level 8.4L, Glomerular Filtration Rate 40.3L, Magnesium Level 1.9, Phosphorus Level 3.1 CBC/BMP Laboratory Tests 12/03/16 05:02 Anion Gap 9, Red Blood Count 4.28 L, Mean Corpuscular Volume 88.9, Mean Corpuscular Hemoglobin 28.6, Mean Corpuscular Hemoglobin Concent 32.1, Red Cell Distribution Width 14.9 H Microbiology Microbiology 12/03/16 Blood Culture, Received Pending 12/02/16 Blood Culture - Preliminary, Resulted 12/02/16 Blood Culture - Preliminary, Resulted 12/02/16 Respiratory Virus Panel (PCR) ([facility]) - Final, Complete REBECCA REILLY MD Dec 03, 2016 13:39
[2016-12-03] MEDS: CLOPIDOGREL 75 MG TAB PO SCH (21:07)
[2016-12-03] MEDS: OMEPRAZOLE 20 MG CAP PO SCH (21:07)
[2016-12-03] MEDS: TAMSULOSIN 0.4 MG CAP PO SCH (21:07)
[2016-12-03] MEDS: ASPIRIN 81 MG ENTERIC TAB PO SCH (21:08)
[2016-12-03] MEDS: FINASTERIDE 5 MG TAB PO SCH (21:08)
[2016-12-03] MEDS: NYSTATIN 100,000 UNITS/GM TOPICAL PWD 15 GM TOP PRN (21:14)
[2016-12-03] MEDS: LIDOCAINE 5% OINT 30 GM TOP PRN (21:14)
[2016-12-04] VITALS (13 sets, daily range): BP systolic 88–128; BP diastolic 50–76; O2SAT 96
[2016-12-04] MEDS: FUROSEMIDE 40 MG/4 ML VIAL (J1940) IV SCH ×8 (00:55→23:54)
[2016-12-04] MEDS: cefTRIAXone SOD 1 GM in D5W MINI-BAG PLUS 50 ML IV SCH ×3 (00:55→23:54)
[2016-12-04] MEDS: ACETAMINOPHEN TAB 650MG DOSE (2X325MG) PO PRN ×3 (01:33→21:28)
[2016-12-04] MEDS: IPRATROPIUM 0.5MG/ALBUTEROL 2.5MG INH SOL UD 3ML (DUONEB)(J7620) NEB SCH ×4 (02:10→20:00)
[2016-12-04] MEDS: SLF 3 ML SYR IV SCH ×3 (05:01→21:28)
[2016-12-04] MEDS: HEPARIN SOD (PORCINE) 5000 UNITS/ML VIAL SQ SCH ×2 (05:01→23:54)
[2016-12-04 05:37] LABS: MEAN CORPUSCULAR HEMOGLOBIN 28.3 pg (27.0-33.0); MEAN CORPUSCULAR HGB CONC 32.4 g/dl (32.0-36.5); MEAN CORPUSCULAR VOLUME 87.5 fl (80.0-96.0); RED CELL DISTRIBUTION WIDTH 14.9 % (11.5-14.5); WHITE BLOOD COUNT 6.2 K/mm3 (4.0-10.0)
[2016-12-04 05:55] LABS: ALBUMIN 2.6 GM/DL (3.2-5.2); CALCIUM LEVEL 8.2 MG/DL (8.8-10.2); CREATININE FOR GFR 1.76 MG/DL (0.70-1.30); GLOMERULAR FILTRATION RATE 40.6 (>42); MAGNESIUM LEVEL 1.7 MG/DL (1.8-2.4); PHOSPHORUS LEVEL 3.3 MG/DL (2.5-4.9); POTASSIUM SERUM 3.5 MEQ/L (3.5-5.1)
[2016-12-04] MEDS ORDERED: MAGNESIUM OXIDE 400 MG TAB (MAG-OX) PO ONE (06:30)
[2016-12-04] MEDS: HumaLOG INSULIN (NovoLOG) PER UNIT SC SCH ×4 (07:30→21:27)
[2016-12-04] MEDS: ADVAIR DISKUS 250/50 INH PWD INH SCH ×2 (08:21→20:28)
[2016-12-04] MEDS: CARVedilol 3.125 MG TAB PO SCH ×2 (09:00→20:53)
[2016-12-04] MEDS: RANOLAZINE 500 MG ER TAB PO SCH ×2 (09:14→21:25)
[2016-12-04] MEDS: DOCUSATE SODIUM 100 MG CAP PO SCH ×2 (09:15→21:27)
[2016-12-04] MEDS: POTASSIUM CHLORIDE 10 MEQ SR TABLET PO SCH ×2 (09:15→21:26)
[2016-12-04] MEDS: DIGOXIN 0.125 MG TAB PO SCH (09:15)
[2016-12-04] MEDS: SENOKOT S TAB PO SCH ×2 (09:15→21:27)
[2016-12-04] MEDS: FLUTICASONE PROP 0.05% NASAL SPRAY 16 GM (FLONASE) SCH ×2 (09:16→21:27)
[2016-12-04] MEDS: PREGABALIN 100 MG CAP (LYRICA) PO SCH ×3 (09:16→21:26)
--- NOTE | 2016-12-04 11:11 | IPNPDOC ---
Subjective Date Seen The patient was seen on 12/04/16. Subjective Chief Complaint/HPI The patient is a 71-year-old male admitted with a reason for visit of Dyspnea; Peripheral Edema. General: Denies: Chills, Night Sweats Constitutional: Denies: Chills, Fever Eyes: Denies: Pain, Vision change ENT: Denies: Ear Pain, Head Aches Skin: Denies: Lesions, Rash Pulmonary: Reports: Cough, Dyspnea Cardiovascular: Denies: Chest Pain, Palpitations Gastrointestinal: Denies: Nausea, Vomiting Genitourinary: Denies: Dysuria, Frequency Hematologic: Denies: Bleeding Excessively, Bruising Objective Physical Examination General Exam: Positive: Alert, Cooperative, No Acute Distress ENT Exam: Positive: Atraumatic, Mucous membr. moist/pink Neck Exam: Positive: JVD Chest Exam: Positive: Rales (Coarse bibasilar rales) Heart Exam: Positive: Normal S1, Normal S2, Rate Normal Abdomen Exam: Positive: Soft Extremity Exam: Positive: Swelling Skin Exam: Positive: Other skin issue Assessment /Plan Plan/VTE VTE Prophylaxis Ordered?: Yes Plan SOB 2/2 Acutely decompensated systolic and diastolic heart failure likely 2/2 non-compliance CXR 11/28 notable for moderate sized R effusion with basilar atelectasis / infiltrate CT chest 11/28 notable for large b/l pleural effusion and lower lobe infiltrate ( R>L), small abdominal ascites ECHO 11/29 notable for EF 20-25%; Diastolic Dysfunction Patient with an additional net negative of 1.3L cc's over last 24 hours, and notes improvement of SOB Off supplemental oxygen at this time, and lower extremities appears to be less edematous Cont Daily Weight, Strict I/O's Will cont to monitor the patient's respiratory status SOB, Cough possibly 2/2 CAP Patient noted to have infiltrates on Chest CT on 11/28, and on repeat CXR on 12/02 Sputum Cultures pending Resp panel negative Continue on Rocephin, Zithro WBC wnl, Hemodynamically stable, Afebrile as of this AM Preliminary Blood Cultures Positive x 2 Notable for Staph Aureus, susceptibilities pending Possibly a contaminant? Possible source(s) include CAP, chronic venous stasis wounds (though do not clinically appear to be actively infected), the patient also does have an AICD as a possible source of infection--although a 2D ECHO from 11/29 revealed no overt source of infection Patient has a normal WBC, is hemodynamically stable, and has been afebrile over the last 24+ hrs We will continue to monitor the patient's status Repeat blood cultures negative x 2 thus far Will consider broadening antibiotics if the patient spikes a fever Acute Superimposed on Chronic Kidney Disease likely 2/2 Cardio-Renal syndrome Baseline Cr around 1.5-1.7 Serum Cr improved following aggressive diuresis--> Cr currently at 1.7 Will continue to assess the patient's response to diuretic therapy Normocytic anemia, stable Cont to monitor CAD, Ischemic cardiomyopathy s/p AICD Cont ASA, Plavix, Carvedilol, Digoxin Chronic venous stasis dermatitis Wound care consulted COPD Cont duoneb PRN and Advair DM2 Continue with ISS BPH Cont Tamsulosin and Finasteride Morbid obesity Complicates Medical Treatment Constipation Cont docusate sodium DVT prophylaxis Cont heparin 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, 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 given the patient's Ischemic Cardiomyopathy, COPD, and CKD Dispo: Will cont to follow up with patient's respiratory status, PT recommendations VS, I&O, 24H, [facility] Vital Signs/I&O Vital Signs Date Time Temp Pulse Resp B/P Pulse Ox O2 Delivery O2 Flow Rate FiO2 12/04/16 09:15 81 12/04/16 09:12 99/50 12/04/16 07:40 97.5 22 90 Room Air 12/04/16 07:34 3.0 I&O- Last 24 Hours up to 6 AM 12/04/16 06:00 Intake Total 1188 ml Output Total 2125 ml Balance -937 ml Laboratory Data 24H LABS Laboratory Tests 2 12/03/16 11:48: Bedside Glucose (Misc Panel) 189H 12/03/16 16:54: Bedside Glucose (Misc Panel) 221H 12/03/16 20:46: Bedside Glucose (Misc Panel) 149H 12/04/16 05:13: Albumin 2.6L, Blood Urea Nitrogen 40H, Creatinine 1.76H, Sodium Level 137, Potassium Level 3.5, Chloride Level 97L, Carbon Dioxide Level 31, Anion Gap 9, C -Reactive Protein, Quantitative 8.79H, Calcium Level 8.2L, Erythrocyte Sedimentation Rate 12, Glomerular Filtration Rate 40.6L, Magnesium Level 1.7L, Phosphorus Level 3.3 CBC/BMP Laboratory Tests 12/04/16 05:13 Anion Gap 9, Red Blood Count 4.29 L, Mean Corpuscular Volume 87.5, Mean Corpuscular Hemoglobin 28.3, Mean Corpuscular Hemoglobin Concent 32.4, Red Cell Distribution Width 14.9 H Microbiology Microbiology 12/03/16 Blood Culture, Received Pending 12/03/16 Blood Culture - Preliminary, Resulted No growth after 24 hours . All specim... 12/02/16 Blood Culture - Preliminary, Resulted Staphylococcus Aureus 12/02/16 Blood Culture - Preliminary, Resulted Staphylococcus Aureus 12/02/16 Respiratory Virus Panel (PCR) ([facility]) - Final, Complete REBECCA REILLY MD Dec 04, 2016 11:11
[2016-12-04] MEDS: BENZONATATE 100 MG CAP PO SCH ×2 (11:27→21:26)
[2016-12-04] MEDS: AZITHROMYCIN INJ 500 MG, VIAL MATE ADAPTER 1 EACH in D5W 250 ML IV SCH (11:28)
[2016-12-04] MEDS: MAALOX 30 ML SUSP *UDC PO PRN (13:54)
[2016-12-04] MEDS: MIRALAX *UNIT DOSE* 17GM PACKET PO PRN (18:00)
[2016-12-04] MEDS: OMEPRAZOLE 20 MG CAP PO SCH (21:25)
[2016-12-04] MEDS: CLOPIDOGREL 75 MG TAB PO SCH (21:26)
[2016-12-04] MEDS: TAMSULOSIN 0.4 MG CAP PO SCH (21:26)
[2016-12-04] MEDS: FINASTERIDE 5 MG TAB PO SCH (21:26)
[2016-12-04] MEDS: ASPIRIN 81 MG ENTERIC TAB PO SCH (21:27)
[2016-12-05] MEDS: IPRATROPIUM 0.5MG/ALBUTEROL 2.5MG INH SOL UD 3ML (DUONEB)(J7620) NEB SCH ×4 (01:44→20:00)
[2016-12-05 04:45] VITALS: BP 114/75
[2016-12-05] MEDS: MAALOX 30 ML SUSP *UDC PO PRN (04:50)
[2016-12-05] MEDS: HEPARIN SOD (PORCINE) 5000 UNITS/ML VIAL SQ SCH ×3 (04:50→21:15)
[2016-12-05] MEDS: FUROSEMIDE 40 MG/4 ML VIAL (J1940) IV SCH ×5 (04:50→20:56)
[2016-12-05] MEDS: SLF 3 ML SYR IV SCH ×3 (04:51→21:15)
[2016-12-05] MEDS: ACETAMINOPHEN TAB 650MG DOSE (2X325MG) PO PRN (04:51)
[2016-12-05 05:24] LABS: MEAN CORPUSCULAR HEMOGLOBIN 28.4 pg (27.0-33.0); MEAN CORPUSCULAR HGB CONC 31.9 g/dl (32.0-36.5); MEAN CORPUSCULAR VOLUME 88.9 fl (80.0-96.0); RED CELL DISTRIBUTION WIDTH 15.1 % (11.5-14.5); WHITE BLOOD COUNT 8.9 K/mm3 (4.0-10.0)
[2016-12-05 05:29] LABS: ALBUMIN 2.6 GM/DL (3.2-5.2); CALCIUM LEVEL 8.2 MG/DL (8.8-10.2); CREATININE FOR GFR 1.59 MG/DL (0.70-1.30); GLOMERULAR FILTRATION RATE 45.7 (>42); MAGNESIUM LEVEL 1.9 MG/DL (1.8-2.4); PHOSPHORUS LEVEL 2.7 MG/DL (2.5-4.9); POTASSIUM SERUM 4.5 MEQ/L (3.5-5.1)
[2016-12-05] MEDS: ADVAIR DISKUS 250/50 INH PWD INH SCH ×2 (07:06→19:31)
[2016-12-05 07:15] VITALS: BP 120/68
[2016-12-05] MEDS: HumaLOG INSULIN (NovoLOG) PER UNIT SC SCH ×4 (07:30→20:58)
[2016-12-05] MEDS: RANOLAZINE 500 MG ER TAB PO SCH ×2 (09:11→21:15)
[2016-12-05] MEDS: SENOKOT S TAB PO SCH ×2 (09:12→20:57)
[2016-12-05] MEDS: PREGABALIN 100 MG CAP (LYRICA) PO SCH ×3 (09:13→20:57)
[2016-12-05] MEDS: DOCUSATE SODIUM 100 MG CAP PO SCH ×2 (09:14→20:56)
[2016-12-05] MEDS: BENZONATATE 100 MG CAP PO SCH ×2 (09:14→20:58)
[2016-12-05] MEDS: AZITHROMYCIN 250 MG TAB PO SCH (09:14)
[2016-12-05] MEDS: CARVedilol 3.125 MG TAB PO SCH ×2 (09:15→20:57)
[2016-12-05] MEDS: DIGOXIN 0.125 MG TAB PO SCH (09:16)
[2016-12-05] MEDS: FLUTICASONE PROP 0.05% NASAL SPRAY 16 GM (FLONASE) SCH ×2 (09:16→20:58)
--- NOTE | 2016-12-05 10:48 | IPNPDOC ---
Subjective Date Seen The patient was seen on 12/05/16. Subjective Chief Complaint/HPI The patient is a 71-year-old male admitted with a reason for visit of Dyspnea; Peripheral Edema. General: Denies: Chills, Night Sweats Constitutional: Denies: Chills, Fever Eyes: Denies: Pain, Vision change ENT: Denies: Ear Pain, Head Aches Skin: Denies: Lesions, Rash Pulmonary: Denies: Cough, Dyspnea Cardiovascular: Denies: Chest Pain, Palpitations Gastrointestinal: Denies: Nausea, Vomiting Genitourinary: Denies: Dysuria, Frequency Hematologic: Denies: Bleeding Excessively, Bruising Objective Physical Examination General Exam: Positive: Alert, Cooperative, No Acute Distress ENT Exam: Positive: Atraumatic, Mucous membr. moist/pink Neck Exam: Positive: JVD Chest Exam: Positive: Rales (Coarse bibasilar rales) Heart Exam: Positive: Normal S1, Normal S2, Rate Normal Abdomen Exam: Positive: Soft Male Exam: Positive: Edema (+Scrotal Edema) Extremity Exam: Positive: Swelling Skin Exam: Positive: Other skin issue Assessment /Plan Plan/VTE VTE Prophylaxis Ordered?: Yes Plan SOB 2/2 Acutely decompensated systolic and diastolic heart failure likely 2/2 non-compliance CXR 11/28 notable for moderate sized R effusion with basilar atelectasis / infiltrate CT chest 11/28 notable for large b/l pleural effusion and lower lobe infiltrate ( R>L), small abdominal ascites ECHO 11/29 notable for EF 20-25%; Diastolic Dysfunction Patient with an additional net negative of 1.3L cc's over last 24 hours, and continues to improve with decreased Oxygen Requirement, Edema Cont Daily Weight, Strict I/O's Will cont to monitor the patient's respiratory status SOB, Cough possibly 2/2 CAP Patient noted to have infiltrates on Chest CT on 11/28, and on repeat CXR on 12/02 Sputum Cultures pending Resp panel negative Continue on Rocephin, Zithro WBC wnl, Hemodynamically stable, Afebrile as of this AM Preliminary Blood Cultures Positive x 2 Notable for Staph Aureus, susceptibilities noted Possibly a contaminant? Possible source(s) include CAP, chronic venous stasis wounds (though do not clinically appear to be actively infected), the patient also does have an AICD as a possible source of infection--although a 2D ECHO from 11/29 revealed no overt source of infection Patient has a normal WBC, is hemodynamically stable, and has been afebrile over the last 48+ hrs We will continue to monitor the patient's status Repeat blood cultures negative x 2 thus far Cont George Aaron for CAP treatment Acute Superimposed on Chronic Kidney Disease likely 2/2 Cardio-Renal syndrome Baseline Cr around 1.5-1.7 Serum Cr improved following aggressive diuresis--> Cr currently at 1.5 Will continue to assess the patient's response to diuretic therapy Normocytic anemia, stable Cont to monitor CAD, Ischemic cardiomyopathy s/p AICD Cont ASA, Plavix, Carvedilol, Digoxin Chronic venous stasis dermatitis Wound care consulted COPD Cont duoneb PRN and Advair DM2 Continue with ISS BPH Cont Tamsulosin and Finasteride Morbid obesity Complicates Medical Treatment Constipation Cont docusate sodium DVT prophylaxis Cont heparin 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, 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 poor given the patient's Ischemic Cardiomyopathy, COPD, and CKD Dispo: Will cont aggressive diuresis to optimize fluid status, follow up with PT recommendations VS, I&O, 24H, [facility] Vital Signs/I&O Vital Signs Date Time Temp Pulse Resp B/P Pulse Ox O2 Delivery O2 Flow Rate FiO2 12/05/16 09:16 86 12/05/16 09:15 108/58 12/05/16 08:01 Nasal Cannula 1.0 12/05/16 07:15 98.3 20 96 I&O- Last 24 Hours up to 6 AM 12/05/16 06:00 Intake Total 1430 ml Output Total 1605 ml Balance -175 ml Laboratory Data 24H LABS Laboratory Tests 2 12/04/16 12:02: Bedside Glucose (Misc Panel) 220H 12/04/16 16:56: Bedside Glucose (Misc Panel) 158H 12/04/16 21:04: Bedside Glucose (Misc Panel) 191H 12/05/16 04:39: Albumin 2.6L, Blood Urea Nitrogen 41H, Creatinine 1.59H, Sodium Level 134L, Potassium Level 4.5#, Chloride Level 97L, Carbon Dioxide Level 29, Anion Gap 8, Calcium Level 8.2L, Glomerular Filtration Rate 45.7, Magnesium Level 1.9, Phosphorus Level 2.7 CBC/BMP Laboratory Tests 12/05/16 04:39 Anion Gap 8, Red Blood Count 4.67, Mean Corpuscular Volume 88.9, Mean Corpuscular Hemoglobin 28.4, Mean Corpuscular Hemoglobin Concent 31.9 L, Red Cell Distribution Width 15.1 H Microbiology Microbiology 12/03/16 Blood Culture - Preliminary, Resulted No growth after 24 hours . All specim... 12/03/16 Blood Culture - Preliminary, Resulted No Growth after 48 hours. All Specime... 12/02/16 Blood Culture - Final, Complete Staphylococcus Aureus 12/02/16 Blood Culture - Final, Complete Staphylococcus Aureus 12/02/16 Respiratory Virus Panel (PCR) ([facility]) - Final, Complete REBECCA REILLY MD Dec 05, 2016 10:48
[2016-12-05 12:00] VITALS: BP 114/69
[2016-12-05] MEDS: cefTRIAXone SOD 1 GM in D5W MINI-BAG PLUS 50 ML IV SCH (13:14)
[2016-12-05 16:00] VITALS: BP 117/70
[2016-12-05 20:00] VITALS: BP 115/57
[2016-12-05] MEDS: OMEPRAZOLE 20 MG CAP PO SCH (20:56)
[2016-12-05] MEDS: CLOPIDOGREL 75 MG TAB PO SCH (20:57)
[2016-12-05] MEDS: FINASTERIDE 5 MG TAB PO SCH (20:57)
[2016-12-05] MEDS: ASPIRIN 81 MG ENTERIC TAB PO SCH (20:57)
[2016-12-05] MEDS: TAMSULOSIN 0.4 MG CAP PO SCH (20:57)
[2016-12-06] VITALS (7 sets, daily range): BP systolic 111–160; BP diastolic 57–89
[2016-12-06] MEDS: cefTRIAXone SOD 1 GM in D5W MINI-BAG PLUS 50 ML IV SCH ×2 (00:34→12:25)
[2016-12-06] MEDS: FUROSEMIDE 40 MG/4 ML VIAL (J1940) IV SCH ×6 (00:35→20:31)
[2016-12-06] MEDS: IPRATROPIUM 0.5MG/ALBUTEROL 2.5MG INH SOL UD 3ML (DUONEB)(J7620) NEB SCH ×4 (01:02→20:00)
[2016-12-06] MEDS: SLF 3 ML SYR IV SCH ×3 (04:48→20:33)
[2016-12-06] MEDS: HEPARIN SOD (PORCINE) 5000 UNITS/ML VIAL SQ SCH ×3 (04:54→20:48)
[2016-12-06 05:17] LABS: MAGNESIUM LEVEL 2.1 MG/DL (1.8-2.4)
[2016-12-06] MEDS: ADVAIR DISKUS 250/50 INH PWD INH SCH ×2 (07:03→19:45)
[2016-12-06] MEDS: HumaLOG INSULIN (NovoLOG) PER UNIT SC SCH ×4 (07:30→20:32)
[2016-12-06] MEDS: PREGABALIN 100 MG CAP (LYRICA) PO SCH ×3 (08:05→20:31)
[2016-12-06] MEDS: DIGOXIN 0.125 MG TAB PO SCH (08:06)
[2016-12-06] MEDS: AZITHROMYCIN 250 MG TAB PO SCH (08:08)
[2016-12-06] MEDS: BENZONATATE 100 MG CAP PO SCH ×2 (08:08→20:32)
[2016-12-06] MEDS: RANOLAZINE 500 MG ER TAB PO SCH ×2 (08:08→20:32)
[2016-12-06] MEDS: SENOKOT S TAB PO SCH ×2 (08:09→20:32)
[2016-12-06] MEDS: DOCUSATE SODIUM 100 MG CAP PO SCH ×2 (08:09→20:32)
[2016-12-06] MEDS: CARVedilol 3.125 MG TAB PO SCH ×2 (08:09→20:32)
[2016-12-06 08:10] LABS: CALCIUM LEVEL 8.5 MG/DL (8.8-10.2); CREATININE FOR GFR 1.39 MG/DL (0.70-1.30); GLOMERULAR FILTRATION RATE 53.3 (>42); POTASSIUM SERUM 3.7 MEQ/L (3.5-5.1)
[2016-12-06] MEDS: FLUTICASONE PROP 0.05% NASAL SPRAY 16 GM (FLONASE) SCH ×2 (08:10→20:33)
[2016-12-06 08:15] LABS: MEAN CORPUSCULAR HEMOGLOBIN 28.6 pg (27.0-33.0); MEAN CORPUSCULAR HGB CONC 31.9 g/dl (32.0-36.5); MEAN CORPUSCULAR VOLUME 89.6 fl (80.0-96.0); RED CELL DISTRIBUTION WIDTH 14.9 % (11.5-14.5); WHITE BLOOD COUNT 6.8 K/mm3 (4.0-10.0)
[2016-12-06] MEDS: POTASSIUM CHLORIDE 10 MEQ SR TABLET PO SCH ×2 (12:23→20:32)
--- NOTE | 2016-12-06 13:35 | IPNPDOC ---
Subjective Date Seen The patient was seen on 12/06/16. Subjective Chief Complaint/HPI The patient is a 71-year-old male admitted with a reason for visit of Dyspnea; Peripheral Edema. General: Denies: Chills, Night Sweats Constitutional: Denies: Chills, Fever Eyes: Denies: Pain, Vision change ENT: Denies: Ear Pain, Head Aches Skin: Denies: Lesions, Rash Pulmonary: Reports: Cough, Denies: Dyspnea Cardiovascular: Denies: Chest Pain, Palpitations Gastrointestinal: Denies: Nausea, Vomiting Genitourinary: Denies: Dysuria, Frequency Hematologic: Denies: Bleeding Excessively, Bruising Objective Physical Examination General Exam: Positive: Alert, Cooperative, No Acute Distress ENT Exam: Positive: Atraumatic, Mucous membr. moist/pink Neck Exam: Positive: JVD Chest Exam: Positive: Rales (Coarse bibasilar rales) Heart Exam: Positive: Normal S1, Normal S2, Rate Normal Abdomen Exam: Positive: Soft Male Exam: Positive: Edema (+Scrotal Edema) Extremity Exam: Positive: Swelling Skin Exam: Positive: Other skin issue Assessment /Plan Plan/VTE VTE Prophylaxis Ordered?: Yes Plan SOB 2/2 Acutely decompensated systolic and diastolic heart failure likely 2/2 non-compliance CXR 11/28 notable for moderate sized R effusion with basilar atelectasis / infiltrate CT chest 11/28 notable for large b/l pleural effusion and lower lobe infiltrate ( R>L), small abdominal ascites ECHO 11/29 notable for EF 20-25%; Diastolic Dysfunction Patient with an additional net negative of 2.5L cc's over last 24+ hours, and continues to improve with decreased edema Cont Daily Weight, Strict I/O's Will cont to monitor the patient's respiratory status SOB, Cough possibly 2/2 CAP Patient noted to have infiltrates on Chest CT on 11/28, and on repeat CXR on 12/02 Sputum Cultures pending Resp panel negative Continue on Rocephin, Zithro WBC wnl, Hemodynamically stable, Afebrile as of this AM Preliminary Blood Cultures Positive x 2 Notable for Staph Aureus, susceptibilities noted Possibly a contaminant? Possible source(s) include CAP, chronic venous stasis wounds (though do not clinically appear to be actively infected), the patient also does have an AICD as a possible source of infection--although a 2D ECHO from 11/29 revealed no overt source of infection Patient has a normal WBC, is hemodynamically stable, and has been afebrile over the last 48+ hrs We will continue to monitor the patient's status Repeat blood cultures negative x 2 thus far Cont George Aaron for CAP treatment Acute Superimposed on Chronic Kidney Disease likely 2/2 Cardio-Renal syndrome Baseline Cr around 1.5-1.7 Serum Cr improved following aggressive diuresis--> Cr currently at 1.3 Will continue to assess the patient's response to diuretic therapy Normocytic anemia, stable Cont to monitor CAD, Ischemic cardiomyopathy s/p AICD Cont ASA, Plavix, Carvedilol, Digoxin Chronic venous stasis dermatitis Wound care consulted COPD Cont duoneb PRN and Advair DM2 Continue with ISS BPH Cont Tamsulosin and Finasteride Morbid obesity Complicates Medical Treatment Constipation Cont docusate sodium DVT prophylaxis Cont heparin 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, 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 poor given the patient's Ischemic Cardiomyopathy, COPD, and CKD Dispo: Will cont aggressive diuresis to optimize fluid status, follow up with PT recommendations VS, I&O, 24H, [facility] Vital Signs/I&O Vital Signs Date Time Temp Pulse Resp B/P Pulse Ox O2 Delivery O2 Flow Rate FiO2 12/06/16 08:09 85 125/57 12/06/16 08:00 Nasal Cannula 1.0 12/06/16 07:15 97.1 20 93 I&O- Last 24 Hours up to 6 AM 12/06/16 06:00 Intake Total 1120 ml Output Total 3500 ml Balance -2380 ml Laboratory Data 24H LABS Laboratory Tests 2 12/05/16 16:54: Bedside Glucose (Misc Panel) 137H 12/06/16 04:51: Anion Gap 8, Blood Urea Nitrogen 39H, Creatinine 1.39H, Sodium Level 139, Potassium Level 3.7, Chloride Level 98, Carbon Dioxide Level 33H, Calcium Level 8.5L, Glomerular Filtration Rate 53.3, Magnesium Level 2.1 12/06/16 12:27: Bedside Glucose (Misc Panel) 170H CBC/BMP Laboratory Tests 12/06/16 04:48 Red Blood Count 4.32, Mean Corpuscular Volume 89.6, Mean Corpuscular Hemoglobin 28.6, Mean Corpuscular Hemoglobin Concent 31.9 L, Red Cell Distribution Width 14.9 H 12/06/16 04:51 Calcium Level 8.5 L Microbiology Microbiology 12/03/16 Blood Culture - Preliminary, Resulted No Growth after 48 hours. All Specime... 12/03/16 Blood Culture - Preliminary, Resulted No Growth after 72 hours. All specime... 12/02/16 Blood Culture - Final, Complete Staphylococcus Aureus 12/02/16 Blood Culture - Final, Complete Staphylococcus Aureus 12/02/16 Respiratory Virus Panel (PCR) ([facility]) - Final, Complete REBECCA REILLY MD Dec 06, 2016 13:35
[2016-12-06] MEDS: ASPIRIN 81 MG ENTERIC TAB PO SCH (20:31)
[2016-12-06] MEDS: CLOPIDOGREL 75 MG TAB PO SCH (20:32)
[2016-12-06] MEDS: TAMSULOSIN 0.4 MG CAP PO SCH (20:32)
[2016-12-06] MEDS: FINASTERIDE 5 MG TAB PO SCH (20:39)
[2016-12-06] MEDS: OMEPRAZOLE 20 MG CAP PO SCH (20:39)
[2016-12-07] VITALS (7 sets, daily range): BP systolic 96–122; BP diastolic 52–74
[2016-12-07] MEDS: FUROSEMIDE 40 MG/4 ML VIAL (J1940) IV SCH ×6 (00:13→20:00)
[2016-12-07] MEDS: cefTRIAXone SOD 1 GM in D5W MINI-BAG PLUS 50 ML IV SCH ×2 (00:14→14:32)
[2016-12-07] MEDS: IPRATROPIUM 0.5MG/ALBUTEROL 2.5MG INH SOL UD 3ML (DUONEB)(J7620) NEB SCH ×4 (01:34→20:00)
[2016-12-07] MEDS: SLF 3 ML SYR IV SCH ×3 (04:29→20:33)
[2016-12-07 06:02] LABS: MEAN CORPUSCULAR HGB CONC 30.8 g/dl (32.0-36.5); WHITE BLOOD COUNT 7.7 K/mm3 (4.0-10.0)
[2016-12-07 06:15] LABS: CREATININE FOR GFR 1.48 MG/DL (0.70-1.30); GLOMERULAR FILTRATION RATE 49.6 (>42); POTASSIUM SERUM 4.1 MEQ/L (3.5-5.1)
[2016-12-07] MEDS: HEPARIN SOD (PORCINE) 5000 UNITS/ML VIAL SQ SCH ×3 (06:27→21:46)
[2016-12-07] MEDS: HumaLOG INSULIN (NovoLOG) PER UNIT SC SCH ×4 (07:30→20:29)
[2016-12-07] MEDS: ADVAIR DISKUS 250/50 INH PWD INH SCH ×2 (08:04→20:50)
[2016-12-07] MEDS: RANOLAZINE 500 MG ER TAB PO SCH ×2 (08:47→20:32)
[2016-12-07] MEDS: DOCUSATE SODIUM 100 MG CAP PO SCH ×2 (08:47→20:32)
[2016-12-07] MEDS: BENZONATATE 100 MG CAP PO SCH ×2 (08:47→20:32)
[2016-12-07] MEDS: AZITHROMYCIN 250 MG TAB PO SCH (08:47)
[2016-12-07] MEDS: SENOKOT S TAB PO SCH ×2 (08:47→20:32)
[2016-12-07] MEDS: DIGOXIN 0.125 MG TAB PO SCH (08:48)
[2016-12-07] MEDS: PREGABALIN 100 MG CAP (LYRICA) PO SCH ×3 (08:48→20:32)
[2016-12-07] MEDS: CARVedilol 3.125 MG TAB PO SCH ×2 (08:48→20:31)
[2016-12-07] MEDS: FLUTICASONE PROP 0.05% NASAL SPRAY 16 GM (FLONASE) SCH ×2 (08:49→20:33)
[2016-12-07] MEDS: MAALOX 30 ML SUSP *UDC PO PRN (09:00)
--- NOTE | 2016-12-07 12:00 | IPNPDOC ---
Subjective Date Seen The patient was seen on 12/07/16. Subjective Chief Complaint/HPI The patient is a 71-year-old male admitted with a reason for visit of Dyspnea; Peripheral Edema. General: Denies: Chills, Night Sweats Constitutional: Denies: Chills, Fever Eyes: Denies: Pain, Vision change ENT: Denies: Ear Pain, Head Aches Skin: Denies: Lesions, Rash Pulmonary: Reports: Cough, Denies: Dyspnea, Pleuritic Chest Pain Cardiovascular: Denies: Chest Pain, Palpitations Gastrointestinal: Denies: Nausea, Vomiting Genitourinary: Reports: Frequency, Denies: Dysuria Hematologic: Denies: Bleeding Excessively, Bruising Objective Physical Examination General Exam: Positive: Alert, Cooperative, No Acute Distress ENT Exam: Positive: Atraumatic, Mucous membr. moist/pink Neck Exam: Positive: JVD Chest Exam: Positive: Rales (Coarse bibasilar rales) Heart Exam: Positive: Normal S1, Normal S2, Rate Normal Abdomen Exam: Positive: Soft, Negative: Tenderness Male Exam: Positive: Edema (Scrotal Edema markedly improved) Extremity Exam: Positive: Swelling (Improving in the lower extremities bilaterally) Skin Exam: Positive: Other skin issue Assessment /Plan Plan/VTE VTE Prophylaxis Ordered?: Yes Plan SOB 2/2 Acutely decompensated systolic and diastolic heart failure likely 2/2 non-compliance CXR 11/28 notable for moderate sized R effusion with basilar atelectasis / infiltrate CT chest 11/28 notable for large b/l pleural effusion and lower lobe infiltrate ( R>L), small abdominal ascites ECHO 11/29 notable for EF 20-25%; Diastolic Dysfunction Patient with an additional net negative of 1.5L+ cc's over last 24+ hours, and continues to improve with decreased edema Cont Daily Weight, Strict I/O's Will cont to monitor the patient's respiratory status SOB, Cough possibly 2/2 CAP Patient noted to have infiltrates on Chest CT on 11/28, and on repeat CXR on 12/02 Sputum Cultures pending Resp panel negative Continue on Rocephin, Zithro WBC wnl, Hemodynamically stable, Afebrile Preliminary Blood Cultures Positive x 2 Notable for Staph Aureus, susceptibilities noted Possibly a contaminant? Possible source(s) include CAP, chronic venous stasis wounds (though do not clinically appear to be actively infected), the patient also does have an AICD as a possible source of infection--although a 2D ECHO from 11/29 revealed no overt source of infection Patient has a normal WBC, is hemodynamically stable, and has been afebrile over the last 48+ hrs We will continue to monitor the patient's status Repeat blood cultures negative x 2 thus far Cont Rocephin, Azithro for CAP treatment Acute Superimposed on Chronic Kidney Disease likely 2/2 Cardio-Renal syndrome Baseline Cr around 1.5-1.7 Serum Cr improved following aggressive diuresis--> Cr currently at 1.48 Will continue to assess the patient's response to diuretic therapy Normocytic anemia, stable Cont to monitor CAD, Ischemic cardiomyopathy s/p AICD Cont ASA, Plavix, Carvedilol, Digoxin Chronic venous stasis dermatitis Wound care consulted COPD Cont duoneb PRN and Advair DM2 Continue with ISS BPH Cont Tamsulosin and Finasteride Morbid obesity Complicates Medical Treatment Constipation Cont docusate sodium DVT prophylaxis Cont heparin 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, usp prognosis poor given the patient's Ischemic Cardiomyopathy, COPD, and CKD Dispo: Will cont aggressive diuresis to optimize fluid status and will consider transitioning to PO Lasix in the next 24-48 hrs pending clinical improvement, follow up with PT recommendations VS, I&O, 24H, Fishbone Vital Signs/I&O Vital Signs Date Time Temp Pulse Resp B/P Pulse Ox O2 Delivery O2 Flow Rate FiO2 12/07/16 08:48 79 12/07/16 08:48 115/57 12/07/16 07:20 97.1 20 100 Nasal Cannula 2.0 I&O- Last 24 Hours up to 6 AM 12/07/16 05:59 Intake Total 1330 ml Output Total 1950 ml Balance -620 ml Laboratory Data 24H LABS Laboratory Tests 2 12/06/16 12:27: Bedside Glucose (Misc Panel) 170H 12/06/16 17:38: Bedside Glucose (Misc Panel) 152H 12/06/16 20:40: Bedside Glucose (Misc Panel) 204H 12/07/16 05:08: Anion Gap 5L, Blood Urea Nitrogen 38H, Creatinine 1.48H, Sodium Level 141, Potassium Level 4.1, Chloride Level 97L, Carbon Dioxide Level 39H, Calcium Level 9.0, Glomerular Filtration Rate 49.6 CBC/BMP Laboratory Tests 12/07/16 05:08 Calcium Level 9.0, Red Blood Count 4.55, Mean Corpuscular Volume 91.0, Mean Corpuscular Hemoglobin 28.0, Mean Corpuscular Hemoglobin Concent 30.8 L, Red Cell Distribution Width 15.0 H Microbiology Microbiology 12/03/16 Blood Culture - Preliminary, Resulted No Growth after 72 hours. All specime... 12/03/16 Blood Culture - Preliminary, Resulted No Growth after 72 hours. All specime... 12/02/16 Blood Culture - Final, Complete Staphylococcus Aureus 12/02/16 Blood Culture - Final, Complete Staphylococcus Aureus 12/02/16 Respiratory Virus Panel (PCR) ([facility]) - Final, Complete REBECCA REILLY MD Dec 07, 2016 12:00
[2016-12-07] MEDS: CLOPIDOGREL 75 MG TAB PO SCH (20:32)
[2016-12-07] MEDS: ASPIRIN 81 MG ENTERIC TAB PO SCH (20:32)
[2016-12-07] MEDS: OMEPRAZOLE 20 MG CAP PO SCH (20:32)
[2016-12-07] MEDS: FINASTERIDE 5 MG TAB PO SCH (20:32)
[2016-12-07] MEDS: TAMSULOSIN 0.4 MG CAP PO SCH (21:46)
[2016-12-08] VITALS (8 sets, daily range): BP systolic 98–130; BP diastolic 58–92; PULSE 74
[2016-12-08] MEDS: cefTRIAXone SOD 1 GM in D5W MINI-BAG PLUS 50 ML IV SCH ×2 (00:25→12:20)
[2016-12-08] MEDS: FUROSEMIDE 40 MG/4 ML VIAL (J1940) IV SCH ×6 (00:25→21:27)
[2016-12-08] MEDS: IPRATROPIUM 0.5MG/ALBUTEROL 2.5MG INH SOL UD 3ML (DUONEB)(J7620) NEB SCH ×4 (02:00→20:00)
[2016-12-08] MEDS: SLF 3 ML SYR IV SCH ×3 (05:08→22:00)
[2016-12-08] MEDS: HEPARIN SOD (PORCINE) 5000 UNITS/ML VIAL SQ SCH (05:08)
[2016-12-08 06:54] LABS: MEAN CORPUSCULAR HEMOGLOBIN 28.4 pg (27.0-33.0); MEAN CORPUSCULAR HGB CONC 31.8 g/dl (32.0-36.5); MEAN CORPUSCULAR VOLUME 89.3 fl (80.0-96.0); RED CELL DISTRIBUTION WIDTH 14.7 % (11.5-14.5); WHITE BLOOD COUNT 9.3 K/mm3 (4.0-10.0)
[2016-12-08 07:09] LABS: CALCIUM LEVEL 8.9 MG/DL (8.8-10.2); CREATININE FOR GFR 1.28 MG/DL (0.70-1.30); GLOMERULAR FILTRATION RATE 58.6 (>42); POTASSIUM SERUM 3.9 MEQ/L (3.5-5.1)
[2016-12-08] MEDS: HumaLOG INSULIN (NovoLOG) PER UNIT SC SCH ×4 (07:30→21:37)
[2016-12-08] MEDS: ADVAIR DISKUS 250/50 INH PWD INH SCH ×2 (08:12→20:56)
[2016-12-08] MEDS ORDERED: MORPHINE 2 MG/ML 1ML SYRINGE IV ONE (08:30)
[2016-12-08] MEDS: PREGABALIN 100 MG CAP (LYRICA) PO SCH ×3 (08:40→21:28)
[2016-12-08] MEDS: DIGOXIN 0.125 MG TAB PO SCH (08:40)
[2016-12-08] MEDS: SENOKOT S TAB PO SCH ×2 (08:40→21:30)
[2016-12-08] MEDS: DOCUSATE SODIUM 100 MG CAP PO SCH ×2 (08:41→21:28)
[2016-12-08] MEDS: AZITHROMYCIN 250 MG TAB PO SCH (08:41)
[2016-12-08] MEDS: RANOLAZINE 500 MG ER TAB PO SCH ×2 (08:41→21:30)
[2016-12-08] MEDS: CARVedilol 3.125 MG TAB PO SCH ×2 (08:41→21:29)
[2016-12-08] MEDS: BENZONATATE 100 MG CAP PO SCH ×2 (08:42→21:28)
[2016-12-08] MEDS: FLUTICASONE PROP 0.05% NASAL SPRAY 16 GM (FLONASE) SCH ×2 (08:42→21:31)
[2016-12-08] MEDS ORDERED: ONDANSETRON 4MG/2ML VIAL (J2405) IV SCH (09:00)
[2016-12-08] MEDS: MORPHINE 2 MG/ML 1ML SYRINGE IV PRN ×5 (10:19→21:41)
--- NOTE | 2016-12-08 10:30 | IPNPDOC ---
Subjective Date Seen The patient was seen on 12/08/16. Subjective Chief Complaint/HPI The patient is a 71-year-old male admitted with a reason for visit of Dyspnea; Peripheral Edema. General: Denies: Chills, Night Sweats Constitutional: Denies: Chills, Fever Eyes: Denies: Pain, Vision change ENT: Denies: Ear Pain, Head Aches Skin: Denies: Lesions, Rash Pulmonary: Denies: Cough, Dyspnea Cardiovascular: Denies: Chest Pain, Palpitations Gastrointestinal: Reports: Abdominal Pain, Denies: Nausea, Vomiting Genitourinary: Denies: Dysuria, Frequency Hematologic: Reports: Bleeding Excessively Objective Physical Examination General Exam: Positive: Alert, Cooperative, No Acute Distress ENT Exam: Positive: Atraumatic, Mucous membr. moist/pink Neck Exam: Positive: JVD Chest Exam: Positive: Rales (Coarse bibasilar rales) Heart Exam: Positive: Normal S1, Normal S2, Rate Normal Abdomen Exam: Positive: Other (Patient noted to have a protrusion in the abdominal wall in the LUQ. Mild Tenderness to palpation. No superficial erythema , lesion, or drainage noted), Soft Male Exam: Positive: Edema (Scrotal Edema markedly improved) Extremity Exam: Positive: Swelling (Improving in the lower extremities bilaterally) Skin Exam: Positive: Other skin issue Assessment /Plan Plan/VTE VTE Prophylaxis Ordered?: Yes Plan SOB 2/2 Acutely decompensated systolic and diastolic heart failure likely 2/2 non-compliance CXR 11/28 notable for moderate sized R effusion with basilar atelectasis / infiltrate CT chest 11/28 notable for large b/l pleural effusion and lower lobe infiltrate ( R>L), small abdominal ascites ECHO 11/29 notable for EF 20-25%; Diastolic Dysfunction Patient with a net negative of 6L+ cc's over last 7 days, and continues to improve with decreased edema Cont Daily Weight, Strict I/O's Will cont to monitor the patient's respiratory status Left Sided Abdominal Wall Rectus Hematoma 2/2 SC Heparin Injection Patient states that the abdominal pain started to develop over night CT Scan of the Abdomen notable for Left Rectus Hematoma measuring 6.6 cm in thickness and extending vertically for 22 cm--->I did contact Dr. Borjas of surgery regarding these findings, and he has recommended supportive treatment with observation at this time as the hematoma will tamponade within the fascial plane Will D/C Heparin SC injection(s), ASA, Plavix Hgb stable, blood pressure stable-->Will repeat H&H q6h Morphine prn for pain Apply ice to affected area We will continue to monitor SOB, Cough possibly 2/2 CAP Patient noted to have infiltrates on Chest CT on 11/28, and on repeat CXR on 12/02 Sputum Cultures pending Resp panel negative Continue on Rocephin, Zithro WBC wnl, Hemodynamically stable, Afebrile Preliminary Blood Cultures Positive x 2 Notable for Staph Aureus, susceptibilities noted Possibly a contaminant? Possible source(s) include CAP, chronic venous stasis wounds (though do not clinically appear to be actively infected), the patient also does have an AICD as a possible source of infection--although a 2D ECHO from 11/29 revealed no overt source of infection Patient has a normal WBC, is hemodynamically stable, and has been afebrile over the last 48+ hrs We will continue to monitor the patient's status Repeat blood cultures negative x 2 thus far Cont Rocephin, Azithro for CAP treatment Acute Superimposed on Chronic Kidney Disease likely 2/2 Cardio-Renal syndrome Baseline Cr around 1.5-1.7 Serum Cr improved following aggressive diuresis--> Cr currently at 1.28 Will continue to assess the patient's response to diuretic therapy Normocytic anemia, stable Cont to monitor CAD, Ischemic cardiomyopathy s/p AICD On Carvedilol, Digoxin Will Hold ASA, Plavix 2/2 Hematoma noted above Chronic venous stasis dermatitis Wound care consulted COPD Cont duoneb PRN and Advair DM2 Continue with ISS BPH Cont Tamsulosin and Finasteride Morbid obesity Complicates Medical Treatment Constipation Cont docusate sodium DVT prophylaxis TEDs/SCDs 2/2 Hematoma 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, detention prognosis poor given the patient's Ischemic Cardiomyopathy, COPD, and CKD Dispo: Will cont aggressive diuresis to optimize fluid status and will consider transitioning to PO Lasix in the next 24-48 hrs pending clinical improvement, follow up with PT recommendations VS, I&O, 24H, Fishbone Vital Signs/I&O Vital Signs Date Time Temp Pulse Resp B/P Pulse Ox O2 Delivery O2 Flow Rate FiO2 12/08/16 10:19 16 12/08/16 08:41 94 120/92 12/08/16 08:00 98.6 99 Nasal Cannula 2.0 I&O- Last 24 Hours up to 6 AM 12/08/16 05:59 Intake Total 1050 ml Output Total 1850 ml Balance -800 ml Laboratory Data 24H LABS Laboratory Tests 2 12/07/16 11:54: Bedside Glucose (Misc Panel) 149H 12/07/16 16:29: Bedside Glucose (Misc Panel) 197H 12/07/16 20:28: Bedside Glucose (Misc Panel) 131H 12/08/16 01:48: Creatine Kinase MB 1.3, Creatine Kinase MB Relative Index 4.64H, Total Creatine Kinase 28L, Troponin I 0.02 12/08/16 06:16: Anion Gap 5L, Blood Urea Nitrogen 33H, Creatinine 1.28, Sodium Level 139, Potassium Level 3.9, Chloride Level 99, Carbon Dioxide Level 35H, Calcium Level 8.9, Total Creatine Kinase 30L, Creatine Kinase MB 1.0, Creatine Kinase MB Relative Index 3.33, Glomerular Filtration Rate 58.6, Troponin I 0.02 CBC/BMP Laboratory Tests 12/08/16 06:16 Calcium Level 8.9, Total Creatine Kinase 30 L, Red Blood Count 4.25 L, Mean Corpuscular Volume 89.3, Mean Corpuscular Hemoglobin 28.4, Mean Corpuscular Hemoglobin Concent 31.8 L, Red Cell Distribution Width 14.7 H Microbiology Microbiology 12/03/16 Blood Culture - Preliminary, Resulted No Growth after 72 hours. All specime... 12/03/16 Blood Culture - Preliminary, Resulted No Growth after 72 hours. All specime... 12/02/16 Blood Culture - Final, Complete Staphylococcus Aureus 12/02/16 Blood Culture - Final, Complete Staphylococcus Aureus 12/02/16 Respiratory Virus Panel (PCR) ([facility]) - Final, Complete REBECCA REILLY MD Dec 08, 2016 10:30
--- NOTE | 2016-12-08 11:17 | REP ---
CT ABDOMEN/PELVIS WITHOUT CONTRAST: 12/08/2016 CLINICAL HISTORY: Abdominal pain. Significant heart disease with CHF and atrial fibrillation, previous [place]. Renal insufficiency. Stone disease. COMPARISON: Abdominal images from CT chest, 11/28/2016. TECHNIQUE: No oral or IV contrast given. Scanning through the abdomen/pelvis with coronal and sagittal reconstructions. FINDINGS: CT ABDOMEN: The lung bases show compressive atelectasis or infiltrates bilaterally, right greater than left. There are bilateral effusions, right greater than left. Overall, effusion, moderate on the right, mild to moderate on the left. Heart is mildly enlarged. There is left atrial and ventricular enlargement. Coronary artery calcifications. A prior sternotomy with ununited sternum. Atherosclerotic calcifications of the aortic arch and descending aorta. Also calcifications in the aortic valve plane. An AICD pacer overlies the left upper chest with lead tip terminating in the right ventricle. No hiatal hernia. There is no hepatomegaly. There is no intrahepatic biliary dilatation. There is no splenomegaly or focal splenic lesion. No hepatic mass. There is ascites around the liver and spleen and tracking down the peroneal gutters into the pelvis. This is mild to moderate in volume. Gallbladder shows no calcified stone or mass. There may be some layering sludge within it. Pancreas unremarkable. The aorta has calcifications without aneurysm. No periaortic or retroperitoneal pathologic sized lymphadenopathy. Adrenal glands are normal. Kidneys are mildly atrophic about 8 cm on the right and 11 cm on the left. No renal stone on the left. There is a tiny punctate calcification on the right about 1 mm, some perinephric edema and stranding. No hydronephrosis, hydroureter or ureteral stone. The ureter course to the bladder is without a definite stone. Colon shows diffuse stool from cecum to the flexures while the left colon is partially collapsed. There is diverticulosis without definite diverticulitis. The left rectus muscle shows a new hematoma not present 10 days ago. Has an AP thickness of 6.6 cm and extends for least 22 cm vertically. It also courses around laterally to the oblique muscles. There is extensive subcutaneous edema in the abdomen and pelvis into the flank and buttocks. This represents anasarca. Bone windows show degenerative changes of the lumbar and lower thoracic spine with marginal osteophytes throughout. There is no spondylolysis or spondylolisthesis. Degenerative changes of the endplates seen throughout. Visualized ribs intact. 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 [place] artifact from that limits evaluation of the pelvis even with artifact reduction software algorithm use. Posttraumatic changes superior pubic ramus on the left. The inferior pubic ramus and both rami on the right are intact. There are degenerative changes of the right hip with hip joint space narrowing, rim osteophytes on the acetabular, and the iliac bones intact. SI joints without acute finding. Sacrum shows no fracture. The upper aspect of the SI joints appear fused. There is a Davis catheter evident in the bladder. There is no definite stone, although small stone could clearly be obscured by the artifact from the large metallic hip prosthesis. Fluid tracking into the pelvis represents mild to moderate ascites. Distal left colon and sigmoid with diverticulosis without diverticulitis. The rectus hematoma extends all the way down to the symphysis pubis on that left side tapering. No other findings. IMPRESSION: 1. Moderately large right, moderate left pleural effusion with compressive atelectasis or infiltrates adjacent. 2. Cardiomegaly with single-lead pacer and prior sternotomy. 3. Diffuse anasarca in the abdomen and pelvic subcutaneous tissues. There is also diffuse ascites and a new left rectus hematoma extending from the upper abdomen to the symphysis pubis on that left side and, to a lesser extent, around into the oblique muscles. 4. There is no free air or obstruction. Diverticulosis without diverticulitis or colitis suggested. No gross mass. Signed by Randy Harrison MD 12/08/2016 05:13 P
[2016-12-08] MEDS: MAALOX 30 ML SUSP *UDC PO PRN (12:20)
[2016-12-08] MEDS ORDERED: ONDANSETRON 4MG/2ML VIAL (J2405) IV PRN (12:31)
--- NOTE | 2016-12-08 17:50 | ECGEPIP ---
Stationary ECG Study [facility] Test Date: 2016-12-08 Pat Name: TESSA BRADSHAW Department: Room: J8190-87 Gender: M Geographical Historian: URBANO : 1945 Requested By: MIKE NGUYEN Order Number: [id number] Reading MD: Mushtaq Echevarria Measurements Intervals [place] Rate: 75 P: 24 RI: 246 QRS: 123 QRSD: 121 T: 0 QT: 383 QTc: 430 Interpretive Statements Normal sinus rhythm First-degree AV block Low voltages with right axis deviation, slow precordial R-wave progression; body habitus versus pulmonary disease. Incomplete LBBB. Nonspecific ST/T-wave abnormalities No change from 11/28/16 Electronically Signed On 12-08-2016 17:49:53 EDT by Mushtaq Echevarria
--- NOTE | 2016-12-08 21:10 | REPUSA ---
CT of the abdomen and pelvis without contrast Clinical statement: anemia. Technique: Multiple axial CT images were obtained from the base of the lungs to the floor of the pelv is utilizing 5 mm axial slices without administration of contrast. Coronal and sagittal reconstructio ns were also obtained. Comparison: 12/08/2016. Findings: Chest: There are large bilateral pleural effusions with lower lobe atelectasis. Abdomen: There is a large hyperdense lesion in the anterior abdominal wall measuring 7.1 x 11.6 x 20 .6 cm, consistent with an abdominal wall hematoma. The kidneys are normal in size bilaterally. There is no evidence of hydronephrosis or nephrolithiasis. The liver, spleen, pancreas, gallbladder and adr enal glands are unremarkable. The aorta demonstrates normal caliber and contour. There is no abdomina l lymphadenopathy. Is moderate diffuse abdominal ascites. Pelvis: The bowel is unremarkable, with no obstructive or inflammatory changes. Diffuse sigmoid diver ticulosis is noted without evidence of diverticulitis. The urinary bladder is catheterized but within within normal limits. There is no pelvic lymphadenopathy or ascites. The other pelvic structures nazario ear unremarkable. Bones: There are no suspicious osseous abnormalities seen. Impression: 1. Large mixed attenuation hyperdense lesion in the left anterior abdominal wall, consistent with a l arge hematoma. 2. Large bilateral pleural effusions and atelectasis. 3. Diffuse anasarca. 4. Moderate amount of abdominal ascites. 5. No obstructive or inflammatory bowel changes. Sigmoid diverticulosis. 6. No evidence of hydronephrosis or nephrolithiasis.
[2016-12-08] MEDS: TAMSULOSIN 0.4 MG CAP PO SCH (21:28)
[2016-12-08] MEDS: OMEPRAZOLE 20 MG CAP PO SCH (21:30)
[2016-12-08] MEDS: FINASTERIDE 5 MG TAB PO SCH (21:30)
[2016-12-09] MEDS: FUROSEMIDE 40 MG/4 ML VIAL (J1940) IV SCH ×5 (00:55→16:00)
[2016-12-09] MEDS: IPRATROPIUM 0.5MG/ALBUTEROL 2.5MG INH SOL UD 3ML (DUONEB)(J7620) NEB SCH ×4 (02:00→19:39)
[2016-12-09] MEDS: cefTRIAXone SOD 1 GM in D5W MINI-BAG PLUS 50 ML IV SCH ×2 (02:01→17:33)
[2016-12-09 02:13] LABS: MEAN CORPUSCULAR HEMOGLOBIN 28.1 pg (27.0-33.0); MEAN CORPUSCULAR HGB CONC 31.8 g/dl (32.0-36.5); MEAN CORPUSCULAR VOLUME 88.4 fl (80.0-96.0); RED CELL DISTRIBUTION WIDTH 14.9 % (11.5-14.5); WHITE BLOOD COUNT 13.5 K/mm3 (4.0-10.0)
[2016-12-09 02:16] LABS: INR 1.23
[2016-12-09 05:03] VITALS: BP 112/57
[2016-12-09] MEDS: SLF 3 ML SYR IV SCH ×3 (05:12→22:29)
[2016-12-09] MEDS: HumaLOG INSULIN (NovoLOG) PER UNIT SC SCH ×4 (07:30→21:00)
[2016-12-09 07:33] LABS: MEAN CORPUSCULAR HEMOGLOBIN 28.4 pg (27.0-33.0); MEAN CORPUSCULAR HGB CONC 32.3 g/dl (32.0-36.5); MEAN CORPUSCULAR VOLUME 87.8 fl (80.0-96.0); RED CELL DISTRIBUTION WIDTH 15.1 % (11.5-14.5); WHITE BLOOD COUNT 13.4 K/mm3 (4.0-10.0)
[2016-12-09 07:45] LABS: CALCIUM LEVEL 8.4 MG/DL (8.8-10.2); CREATININE FOR GFR 1.28 MG/DL (0.70-1.30); GLOMERULAR FILTRATION RATE 58.6 (>42)
[2016-12-09 07:53] VITALS: BP 108/56
[2016-12-09] MEDS: ADVAIR DISKUS 250/50 INH PWD INH SCH ×2 (08:02→21:39)
[2016-12-09] MEDS: CARVedilol 3.125 MG TAB PO SCH ×2 (09:00→21:00)
[2016-12-09] MEDS: FLUTICASONE PROP 0.05% NASAL SPRAY 16 GM (FLONASE) SCH ×3 (09:00→22:30)
[2016-12-09] MEDS: AZITHROMYCIN 250 MG TAB PO SCH (09:32)
[2016-12-09] MEDS: DIGOXIN 0.125 MG TAB PO SCH (09:35)
[2016-12-09] MEDS: DOCUSATE SODIUM 100 MG CAP PO SCH ×2 (09:39→22:28)
[2016-12-09] MEDS: BENZONATATE 100 MG CAP PO SCH ×2 (09:40→22:29)
[2016-12-09] MEDS: SENOKOT S TAB PO SCH ×2 (09:40→22:28)
[2016-12-09] MEDS: RANOLAZINE 500 MG ER TAB PO SCH ×2 (09:40→22:29)
[2016-12-09] MEDS: PREGABALIN 100 MG CAP (LYRICA) PO SCH ×3 (09:40→22:29)
[2016-12-09 09:41] VITALS: BP 86/46
[2016-12-09 10:32] LABS: INR 1.25
[2016-12-09 11:30] VITALS: BP 86/49
--- NOTE | 2016-12-09 14:23 | IPNPDOC ---
Text Note Date of Service The patient was seen on 12/09/16. NOTE Subjective: Patient is a 71 year old male with a PMHx of COPD, Pulmonary HTN, CHF , CAD, Ischemic Cardiomyopathy, DM2, CKD3, Hx of Obstructive uropathy, Neuropathy, BPH, Venous stasis ulcer of LE, and Morbid Obesity who presented to the ER with complains of increasing SOB. Patient may not have remained compliant with medications. He was admitted for CHF exacerbation. Patient was seen and examined at the bedside. He is complaining of abdominal pain and tenderness around the hematoma. He notes his swelling continues to improve. Objective: Vitals (See below) General: Lying in bed, no acute distress, comfortable, AAOx3 HEENT: NC, AT CVS: RRR, +S1S2 Lungs: Poor inspiratory effort, no appreciable crackles Abdomen: Soft, ND, NT, +BSx4 Extremities: +PPx4, 2+ pitting edema, Venous stasis ulcers noted, - Calf tenderness Assessment and plan: 1. Left sided abdominal wall hematoma - likely 2/2 heparin injections - Clinically patient is complaining of severe pain - CT scan 12/08: reveals large abdominall hematoma of 6.6 x 12 x 21cm - Hg has trended down over last 24 hours; will transfuse 2 units of PRBC and 2 units of platelets (re: dysfunctional on ASA / Plavix) - c/w pain control with Ice packs and heat packs; will hold opiate medications at this time - Discussed case with Surgery (Dr. Borjas) - advised to monitor and treat conservatively; will hold ASA, Plavix and Heparin 2. Dyspnea and lower extremity edema - likely 2/2 volume overload - 2/2 acute decompensated systolic and diastolic heart failure - likely 2/2 non-compliance - Presented with shortness of breath, no fevers or cough - Currently saturating well with 2L NC - CT chest 11/28: large b/l pleural effusion and lower lobe infiltrate (R>L), small abdominal ascites - CXR 12/02: Mild increase in right effusion and right lung infiltrates. There appears to be mild left retrocardiac infiltrates/atelectasis. - ECHO 11/30: EF: 20-25%; Diastolic Dysfunction - c/w strict ins/outs, daily weights, and head of bed elevation - will maintain negative fluid balance and fluid restrictions - c/w diuresis with Lasix - c/w Physical therapy 3. Possible community acquired pneumonia - Presented with mild cough, no fevers / chills - CT chest on 11/28: with possible infiltrates - Respiratory panel negative; Sputum culture pending - c/w Ceftriaxone and Azithromycin 4. Positive blood cultures, possible contaminant - Blood culture 12/02: staph aureus - Repeat blood cultures 12/03 negative 5. CKD; mild elevation in Cr - possibly cardiorenal syndrome - Baseline Cr around 1.4-1.5 - Cr currently at 1.72 - will follow for now 6. Normocytic anemia - will follow for now 7. CAD / Ischemic cardiomyopathy - s/p AICD - c/w ASA, Plavix, Carvedilol, Digoxin 8. Chronic venous stasis dermatitis 9. COPD - no evidence of exacerbation at this time - c/w duoneb PRN and Advair 10. DM2 - c/w ISS 11. BPH - c/w Tamsulosin and Finasteride 12. Morbid obesity - May complicate his medical treatment 13. Constipation - s/p suppository - c/w docusate sodium 14. DVT prophylaxis - c/w heparin Disposition: - 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, given multiple comorbidities and worsening status - Hold diuresis today - Will transfuse 2 units PRBC and 2 units Platelets VS,Ramy, I+O VS, Ramy, I+O Laboratory Tests 12/08/16 19:10 12/09/16 01:10 Red Blood Count 3.21 L, Mean Corpuscular Volume 88.4, Mean Corpuscular Hemoglobin 28.1, Mean Corpuscular Hemoglobin Concent 31.8 L, Red Cell Distribution Width 14.9 H 12/09/16 07:08 Red Blood Count 2.95 L, Mean Corpuscular Volume 87.8, Mean Corpuscular Hemoglobin 28.4, Mean Corpuscular Hemoglobin Concent 32.3, Red Cell Distribution Width 15.1 H, Calcium Level 8.4 L 12/09/16 10:17 Vital Signs Date Time Temp Pulse Resp B/P Pulse Ox O2 Delivery O2 Flow Rate FiO2 12/09/16 11:30 98.2 89 18 86/49 96 Nasal Cannula 2.0 I&O- Last 24 Hours up to 6 AM 12/09/16 06:00 Intake Total 940 ml Output Total 2375 ml Balance -1435 ml SHEIKH,VIJESH MD Dec 09, 2016 13:52
[2016-12-09 16:00] VITALS: BP 115/62
[2016-12-09 21:19] LABS: BASO % 0.3 % (0.0-1.0); EOS # 0.1 K/mm3 (0.0-0.50); EOS % 0.7 % (0.0-3.0); LARGE UNSTAINED CELL # 0.3 K/mm3 (0.0-0.4); LARGE UNSTAINED CELL % 1.8 % (0.0-4.0); LYMPH # 2.2 K/mm3 (1.5-4.5); LYMPH % 15.8 % (24.0-44.0); MEAN CORPUSCULAR HEMOGLOBIN 28.3 pg (27.0-33.0); MEAN CORPUSCULAR HGB CONC 32.1 g/dl (32.0-36.5); MONO # 0.8 K/mm3 (0.0-0.8); MONO % 6.2 % (0.0-5.0); NEUTROPHILS # 10.3 K/mm3 (1.8-7.7); NEUTROPHILS % 75.2 % (36.0-66.0); PLATELET COUNT, AUTOMATED 193 k/mm3 (150-450); WHITE BLOOD COUNT 13.7 K/mm3 (4.0-10.0)
[2016-12-09] MEDS: OMEPRAZOLE 20 MG CAP PO SCH (22:27)
[2016-12-09] MEDS: FINASTERIDE 5 MG TAB PO SCH (22:28)
[2016-12-09] MEDS: TAMSULOSIN 0.4 MG CAP PO SCH (22:29)
[2016-12-09 23:45] VITALS: BP 116/66
[2016-12-10] MEDS: cefTRIAXone SOD 1 GM in D5W MINI-BAG PLUS 50 ML IV SCH ×2 (00:40→12:40)
[2016-12-10] MEDS: ACETAMINOPHEN TAB 650MG DOSE (2X325MG) PO PRN (00:40)
[2016-12-10] MEDS: IPRATROPIUM 0.5MG/ALBUTEROL 2.5MG INH SOL UD 3ML (DUONEB)(J7620) NEB SCH ×4 (02:43→19:10)
[2016-12-10 05:08] VITALS: BP 107/57
[2016-12-10] MEDS: MORPHINE 2 MG/ML 1ML SYRINGE IV PRN (05:12)
[2016-12-10] MEDS: SLF 3 ML SYR IV SCH ×3 (05:12→23:05)
[2016-12-10 06:26] LABS: MEAN CORPUSCULAR HEMOGLOBIN 28.4 pg (27.0-33.0); MEAN CORPUSCULAR HGB CONC 32.2 g/dl (32.0-36.5); MEAN CORPUSCULAR VOLUME 88.2 fl (80.0-96.0); RED CELL DISTRIBUTION WIDTH 15.1 % (11.5-14.5); WHITE BLOOD COUNT 11.4 K/mm3 (4.0-10.0)
[2016-12-10 06:30] LABS: CALCIUM LEVEL 8.9 MG/DL (8.8-10.2); CREATININE FOR GFR 1.28 MG/DL (0.70-1.30); GLOMERULAR FILTRATION RATE 58.6 (>42); POTASSIUM SERUM 4.3 MEQ/L (3.5-5.1)
[2016-12-10] MEDS: HumaLOG INSULIN (NovoLOG) PER UNIT SC SCH ×4 (07:30→20:55)
[2016-12-10 08:00] VITALS: BP 100/55
[2016-12-10] MEDS ORDERED: FUROSEMIDE 40 MG/4 ML VIAL (J1940) IV ONE (09:00)
[2016-12-10] MEDS: CARVedilol 3.125 MG TAB PO SCH ×2 (09:00→20:55)
[2016-12-10] MEDS: FLUTICASONE PROP 0.05% NASAL SPRAY 16 GM (FLONASE) SCH ×2 (09:00→23:05)
[2016-12-10] MEDS: ADVAIR DISKUS 250/50 INH PWD INH SCH ×2 (09:17→22:22)
[2016-12-10] MEDS: RANOLAZINE 500 MG ER TAB PO SCH ×2 (09:31→20:52)
[2016-12-10] MEDS: AZITHROMYCIN 250 MG TAB PO SCH (09:31)
[2016-12-10] MEDS: DIGOXIN 0.125 MG TAB PO SCH (09:33)
[2016-12-10] MEDS: SENOKOT S TAB PO SCH ×2 (09:33→20:52)
[2016-12-10] MEDS: BENZONATATE 100 MG CAP PO SCH ×2 (09:33→20:52)
[2016-12-10] MEDS: DOCUSATE SODIUM 100 MG CAP PO SCH ×2 (09:33→20:52)
[2016-12-10] MEDS: PREGABALIN 100 MG CAP (LYRICA) PO SCH ×3 (09:33→23:05)
--- NOTE | 2016-12-10 10:36 | IPNPDOC ---
Text Note Date of Service The patient was seen on 12/10/16. NOTE Subjective: Patient is a 71 year old male with a PMHx of COPD, Pulmonary HTN, CHF , CAD, Ischemic Cardiomyopathy, DM2, CKD3, Hx of Obstructive uropathy, Neuropathy, BPH, Venous stasis ulcer of LE, and Morbid Obesity who presented to the ER with complains of increasing SOB. Patient may not have remained compliant with medications. He was admitted for CHF exacerbation. Patient was seen and examined at the bedside. He notes that this morning his abdominal pain around the hematoma was bad and required morphine. He notes his lower extremities have become a little more swollen. Objective: Vitals (See below) General: Lying in bed, no acute distress, comfortable, AAOx3 HEENT: NC, AT CVS: RRR, +S1S2 Lungs: Poor inspiratory effort, no appreciable crackles Abdomen: Soft, ND, Tenderness along LUQ extending to left flank, +BSx4 Extremities: +PPx4, 2+ pitting edema, Venous stasis ulcers noted, - Calf tenderness Assessment and plan: 1. Left sided abdominal wall hematoma - likely 2/2 heparin injections - Clinically patient is complaining of severe pain - CT scan 12/08: reveals large abdominal hematoma of 6.6 x 12 x 21cm - s/p 2 units of PRBC and 2 units of platelets (re: dysfunctional on ASA / Plavix) - Hg post transfusion has been stable, will check H&H [id number] - c/w pain control with Ice packs and heat packs; will hold opiate medications at this time - Discussed case with Surgery (Dr. Borjas) - advised to monitor and treat conservatively; will hold ASA, Plavix and Heparin 2. Dyspnea and lower extremity edema - likely 2/2 volume overload - 2/2 acute decompensated systolic and diastolic heart failure - likely 2/2 non-compliance - Presented with shortness of breath, no fevers or cough - Currently saturating well with 2L NC; slightly more fluid overloaded today 2/ 2 blood products - CT chest 11/28: large b/l pleural effusion and lower lobe infiltrate (R>L), small abdominal ascites - CXR 12/02: Mild increase in right effusion and right lung infiltrates. There appears to be mild left retrocardiac infiltrates/atelectasis. - ECHO 11/30: EF: 20-25%; Diastolic Dysfunction - c/w strict ins/outs, daily weights, and head of bed elevation - will maintain negative fluid balance and fluid restrictions - Will restart diuresis with Lasix today - c/w Physical therapy 3. Possible community acquired pneumonia - Presented with mild cough, no fevers / chills - CT chest on 11/28: with possible infiltrates - Respiratory panel negative; Sputum culture pending - c/w Ceftriaxone and Azithromycin (Day #9) 4. Positive blood cultures, possible contaminant - Blood culture 12/02: staph aureus - Repeat blood cultures 12/03 negative 5. CKD; mild elevation in Cr - possibly cardiorenal syndrome - Baseline Cr around 1.4-1.5 - Cr currently at 1.72 - will follow for now 6. Normocytic anemia - will follow for now 7. CAD / Ischemic cardiomyopathy - s/p AICD - c/w ASA, Plavix, Carvedilol, Digoxin 8. Chronic venous stasis dermatitis 9. COPD - no evidence of exacerbation at this time - c/w duoneb PRN and Advair 10. DM2 - c/w ISS 11. BPH - c/w Tamsulosin and Finasteride 12. Morbid obesity - May complicate his medical treatment 13. Constipation - s/p suppository - c/w docusate sodium 14. DVT prophylaxis - c/w heparin Disposition: - 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, given multiple comorbidities and worsening status - Restart diuresis - Will follow H&H VS,Ramy, I+O VS, Ramy, I+O Laboratory Tests 12/09/16 20:56 Red Blood Count 3.59 L, Mean Corpuscular Volume 88.0, Mean Corpuscular Hemoglobin 28.3, Mean Corpuscular Hemoglobin Concent 32.1, Red Cell Distribution Width 15.0 H, Neutrophils (%) (Auto) 75.2 H, Lymphocytes (%) (Auto ) 15.8 L, Monocytes (%) (Auto) 6.2 H, Eosinophils (%) (Auto) 0.7, Basophils (%) (Auto) 0.3, Neutrophils # (Auto) 10.3 H, Lymphocytes # (Auto) 2.2, Monocytes # ( Auto) 0.8, Eosinophils # (Auto) 0.1, Basophils # (Auto) 0.0 12/10/16 05:56 Red Blood Count 3.34 L, Mean Corpuscular Volume 88.2, Mean Corpuscular Hemoglobin 28.4, Mean Corpuscular Hemoglobin Concent 32.2, Red Cell Distribution Width 15.1 H, Calcium Level 8.9 Vital Signs Date Time Temp Pulse Resp B/P Pulse Ox O2 Delivery O2 Flow Rate FiO2 12/10/16 09:33 83 12/10/16 09:25 Nasal Cannula 2.0 12/10/16 09:00 101/59 12/10/16 08:00 97.1 20 97 I&O- Last 24 Hours up to 6 AM 12/10/16 06:00 Intake Total 2160 ml Output Total 1900 ml Balance 260 ml LUZMARIA SHEIKH MD Dec 10, 2016 10:36
[2016-12-10 12:00] VITALS: BP 107/54
[2016-12-10] MEDS: FUROSEMIDE 40 MG/4 ML VIAL (J1940) IV SCH ×3 (12:42→20:51)
[2016-12-10] MEDS: MAALOX 30 ML SUSP *UDC PO PRN (12:51)
[2016-12-10 16:00] VITALS: BP 106/56
[2016-12-10 20:00] VITALS: BP 105/61
[2016-12-10] MEDS: FINASTERIDE 5 MG TAB PO SCH (20:52)
[2016-12-10] MEDS: TAMSULOSIN 0.4 MG CAP PO SCH (20:52)
[2016-12-10] MEDS: OMEPRAZOLE 20 MG CAP PO SCH (20:52)
[2016-12-11] VITALS (9 sets, daily range): BP systolic 99–120; BP diastolic 51–72
[2016-12-11] MEDS: FUROSEMIDE 40 MG/4 ML VIAL (J1940) IV SCH ×6 (00:52→21:10)
[2016-12-11] MEDS: cefTRIAXone SOD 1 GM in D5W MINI-BAG PLUS 50 ML IV SCH (00:53)
[2016-12-11] MEDS: IPRATROPIUM 0.5MG/ALBUTEROL 2.5MG INH SOL UD 3ML (DUONEB)(J7620) NEB SCH ×4 (02:24→20:00)
[2016-12-11] MEDS: SLF 3 ML SYR IV SCH ×3 (05:14→22:00)
[2016-12-11 05:40] LABS: MEAN CORPUSCULAR HEMOGLOBIN 28.9 pg (27.0-33.0); MEAN CORPUSCULAR HGB CONC 32.9 g/dl (32.0-36.5); MEAN CORPUSCULAR VOLUME 87.9 fl (80.0-96.0); WHITE BLOOD COUNT 10.2 K/mm3 (4.0-10.0)
[2016-12-11 05:53] LABS: ANION GAP 6 MEQ/L (8-16); BLOOD UREA NITROGEN 27 MG/DL (7-18); CALCIUM LEVEL 8.4 MG/DL (8.8-10.2); CARBON DIOXIDE LEVEL 38 MEQ/L (21-32); CHLORIDE LEVEL 92 MEQ/L (98-107); CREATININE FOR GFR 1.24 MG/DL (0.70-1.30); GLOMERULAR FILTRATION RATE > 60.0 (>42); GLUCOSE, FASTING 146 MG/DL (83-110); POTASSIUM SERUM 3.8 MEQ/L (3.5-5.1); SODIUM LEVEL 136 MEQ/L (136-145)
[2016-12-11] MEDS: HumaLOG INSULIN (NovoLOG) PER UNIT SC SCH ×4 (07:30→21:00)
[2016-12-11] MEDS: ADVAIR DISKUS 250/50 INH PWD INH SCH ×2 (08:30→19:57)
[2016-12-11] MEDS: CARVedilol 3.125 MG TAB PO SCH ×2 (09:00→21:00)
[2016-12-11] MEDS: MAALOX 30 ML SUSP *UDC PO PRN (09:27)
[2016-12-11] MEDS: RANOLAZINE 500 MG ER TAB PO SCH ×2 (09:27→21:11)
[2016-12-11] MEDS: BENZONATATE 100 MG CAP PO SCH ×2 (09:28→21:12)
[2016-12-11] MEDS: AZITHROMYCIN 250 MG TAB PO SCH (09:28)
[2016-12-11] MEDS: DOCUSATE SODIUM 100 MG CAP PO SCH ×2 (09:28→21:12)
[2016-12-11] MEDS: SENOKOT S TAB PO SCH ×2 (09:28→21:11)
[2016-12-11] MEDS: DIGOXIN 0.125 MG TAB PO SCH (09:29)
[2016-12-11] MEDS: FLUTICASONE PROP 0.05% NASAL SPRAY 16 GM (FLONASE) SCH ×2 (09:30→21:14)
[2016-12-11] MEDS: PREGABALIN 100 MG CAP (LYRICA) PO SCH ×3 (09:44→21:12)
--- NOTE | 2016-12-11 09:57 | IPNPDOC ---
Text Note Date of Service The patient was seen on 12/11/16. NOTE Subjective: Patient is a 71 year old male with a PMHx of COPD, Pulmonary HTN, CHF , CAD, Ischemic Cardiomyopathy, DM2, CKD3, Hx of Obstructive uropathy, Neuropathy, BPH, Venous stasis ulcer of LE, and Morbid Obesity who presented to the ER with complains of increasing SOB. Patient may not have remained compliant with medications. He was admitted for CHF exacerbation. Patient was seen and examined at the bedside. He has a flattened affect this morning. He does note that his abdominal pain is there, but is not as bad as before. He has no change in his fluid status. Objective: Vitals (See below) General: Lying in bed, no acute distress, comfortable, AAOx3 HEENT: NC, AT CVS: RRR, +S1S2 Lungs: Poor inspiratory effort, no appreciable crackles Abdomen: Soft, ND, Tenderness along LUQ extending to left flank, +BSx4 Extremities: +PPx4, 2+ pitting edema, Venous stasis ulcers noted, - Calf tenderness Assessment and plan: 1. Left sided abdominal wall hematoma - likely 2/2 heparin injections - Clinically patient's pain has improved - CT scan 12/08: reveals large abdominal hematoma of 6.6 x 12 x 21cm - s/p 2 units of PRBC and 2 units of platelets (re: dysfunctional on ASA / Plavix) - Hg post transfusion has been stable - c/w pain control with ice packs - Discussed case with Surgery (Dr. Borjas) - advised to monitor and treat conservatively - Will continue to hold ASA, Plavix and Heparin 2. Dyspnea and lower extremity edema - likely 2/2 volume overload - 2/2 acute decompensated systolic and diastolic heart failure - likely 2/2 non-compliance - Presented with shortness of breath, no fevers or cough - Currently saturating well with 2L NC; slightly more fluid overloaded today 2/ 2 blood products - CT chest 11/28: large b/l pleural effusion and lower lobe infiltrate (R>L), small abdominal ascites - CXR 12/02: Mild increase in right effusion and right lung infiltrates. There appears to be mild left retrocardiac infiltrates/atelectasis. - ECHO 11/30: EF: 20-25%; Diastolic Dysfunction - c/w strict ins/outs, daily weights, and head of bed elevation - will maintain negative fluid balance and fluid restrictions, daily weights, head of bed elevation - c/w Lasix - c/w Physical therapy as tolerated 3. Possible community acquired pneumonia - Presented with mild cough, no fevers / chills - CT chest on 11/28: with possible infiltrates - Respiratory panel negative; Sputum culture pending - c/w Ceftriaxone and Azithromycin (Day #10) - Will stop antibiotics today 4. Positive blood cultures, possible contaminant - Blood culture 12/02: staph aureus - Repeat blood cultures 12/03 negative 5. CKD; mild elevation in Cr - possibly cardiorenal syndrome - Baseline Cr around 1.4-1.5 - Cr currently at 1.72 - will follow for now 6. Normocytic anemia - will follow for now 7. CAD / Ischemic cardiomyopathy - s/p AICD - c/w ASA, Plavix, Carvedilol, Digoxin 8. Chronic venous stasis dermatitis 9. COPD - no evidence of exacerbation at this time - c/w duoneb PRN and Advair 10. DM2 - c/w ISS 11. BPH - c/w Tamsulosin and Finasteride 12. Morbid obesity - May complicate his medical treatment 13. Constipation - s/p suppository - c/w docusate sodium 14. DVT prophylaxis - c/w heparin Disposition: - 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, given multiple comorbidities and worsening status - c/w Diuresis until euvolemia is achieved VS,Ramy, I+O VS, Mariannee, I+O Laboratory Tests 12/10/16 12:09 12/11/16 05:17 Calcium Level 8.4 L, Red Blood Count 3.24 L, Mean Corpuscular Volume 87.9, Mean Corpuscular Hemoglobin 28.9, Mean Corpuscular Hemoglobin Concent 32.9, Red Cell Distribution Width 15.0 H Vital Signs Date Time Temp Pulse Resp B/P Pulse Ox O2 Delivery O2 Flow Rate FiO2 12/11/16 09:29 88 12/11/16 09:00 100/60 12/11/16 08:04 98.1 18 95 Nasal Cannula 2.0 I&O- Last 24 Hours up to 6 AM 12/11/16 06:00 Intake Total 755 ml Output Total 950 ml Balance -195 ml LUZMARIA SHEIKH MD Dec 11, 2016 09:57
[2016-12-11] MEDS ORDERED: FLEET ENEMA PR PRN (16:00)
[2016-12-11] MEDS: MOM 30ML SUSPENSION UDC PO PRN (16:16)
[2016-12-11] MEDS: MIRALAX *UNIT DOSE* 17GM PACKET PO PRN (21:09)
[2016-12-11] MEDS: OMEPRAZOLE 20 MG CAP PO SCH (21:11)
[2016-12-11] MEDS: BISACODYL 10 MG SUPP PR PRN (21:11)
[2016-12-11] MEDS: FINASTERIDE 5 MG TAB PO SCH (21:12)
[2016-12-11] MEDS: TAMSULOSIN 0.4 MG CAP PO SCH (21:12)
[2016-12-12] VITALS (9 sets, daily range): BP systolic 98–115; BP diastolic 55–62
[2016-12-12] MEDS: FUROSEMIDE 40 MG/4 ML VIAL (J1940) IV SCH ×6 (00:05→21:13)
[2016-12-12] MEDS: IPRATROPIUM 0.5MG/ALBUTEROL 2.5MG INH SOL UD 3ML (DUONEB)(J7620) NEB SCH ×4 (01:52→20:00)
[2016-12-12] MEDS: SLF 3 ML SYR IV SCH ×3 (04:29→21:16)
[2016-12-12 06:02] LABS: MEAN CORPUSCULAR HEMOGLOBIN 28.7 pg (27.0-33.0); MEAN CORPUSCULAR HGB CONC 32.1 g/dl (32.0-36.5); MEAN CORPUSCULAR VOLUME 89.5 fl (80.0-96.0); RED CELL DISTRIBUTION WIDTH 15.2 % (11.5-14.5); WHITE BLOOD COUNT 11.3 K/mm3 (4.0-10.0)
[2016-12-12 06:06] LABS: CALCIUM LEVEL 8.6 MG/DL (8.8-10.2); CREATININE FOR GFR 1.34 MG/DL (0.70-1.30); GLOMERULAR FILTRATION RATE 55.6 (>42); POTASSIUM SERUM 4.2 MEQ/L (3.5-5.1)
[2016-12-12] MEDS: HumaLOG INSULIN (NovoLOG) PER UNIT SC SCH ×4 (07:30→21:15)
[2016-12-12] MEDS: ADVAIR DISKUS 250/50 INH PWD INH SCH ×2 (08:36→20:56)
[2016-12-12] MEDS: CARVedilol 3.125 MG TAB PO SCH ×2 (08:54→21:13)
[2016-12-12] MEDS: FLUTICASONE PROP 0.05% NASAL SPRAY 16 GM (FLONASE) SCH ×2 (09:09→21:15)
[2016-12-12] MEDS: DIGOXIN 0.125 MG TAB PO SCH (09:10)
[2016-12-12] MEDS: SENOKOT S TAB PO SCH ×2 (09:10→21:15)
[2016-12-12] MEDS: BENZONATATE 100 MG CAP PO SCH ×2 (09:10→21:15)
[2016-12-12] MEDS: PREGABALIN 100 MG CAP (LYRICA) PO SCH ×3 (09:10→21:26)
[2016-12-12] MEDS: RANOLAZINE 500 MG ER TAB PO SCH ×2 (09:10→21:24)
[2016-12-12] MEDS: DOCUSATE SODIUM 100 MG CAP PO SCH ×2 (09:10→21:14)
--- NOTE | 2016-12-12 11:05 | IPNPDOC ---
Text Note Date of Service The patient was seen on 12/12/16. NOTE Subjective: Patient is a 71 year old male with a PMHx of COPD, Pulmonary HTN, CHF , CAD, Ischemic Cardiomyopathy, DM2, CKD3, Hx of Obstructive uropathy, Neuropathy, BPH, Venous stasis ulcer of LE, and Morbid Obesity who presented to the ER with complains of increasing SOB. Patient may not have remained compliant with medications. He was admitted for CHF exacerbation. Patient was seen and examined at sitting up in the chair. He noted that his abdominal pain is doing better. He notes improvement in his LE edema but not complete resolution. Objective: Vitals (See below) General: Lying in bed, no acute distress, comfortable, AAOx3 HEENT: NC, AT CVS: RRR, +S1S2 Lungs: Poor inspiratory effort, no appreciable crackles Abdomen: Soft, ND, Tenderness along LUQ extending to left flank, +BSx4 Extremities: +PPx4, 2+ pitting edema, Venous stasis ulcers noted, - Calf tenderness Assessment and plan: 1. Left sided abdominal wall hematoma - likely 2/2 heparin injections - Improvement in pain - CT scan 12/08: reveals large abdominal hematoma of 6.6 x 12 x 21cm - s/p 2 units of PRBC and 2 units of platelets (re: dysfunctional on ASA / Plavix) - Hg post transfusion has been stable - c/w pain control with ice packs - Discussed case with Surgery (Dr. Borjas) - advised to monitor and treat conservatively - Continue to hold ASA, Plavix and Heparin 2. Dyspnea and lower extremity edema - likely 2/2 volume overload - 2/2 acute decompensated systolic and diastolic heart failure - likely 2/2 non-compliance - Presented with shortness of breath, no fevers or cough; however is saturating well currently - CT chest 11/28: large b/l pleural effusion and lower lobe infiltrate (R>L), small abdominal ascites - CXR 12/02: Mild increase in right effusion and right lung infiltrates. There appears to be mild left retrocardiac infiltrates/atelectasis. - ECHO 11/30: EF: 20-25%; Diastolic Dysfunction - c/w strict ins/outs, daily weights, and head of bed elevation - will maintain negative fluid balance and fluid restrictions, daily weights, head of bed elevation - c/w Lasix - c/w Physical therapy as tolerated 3. Possible community acquired pneumonia - Presented with mild cough, no fevers / chills - CT chest on 11/28: with possible infiltrates - Respiratory panel negative; Sputum culture pending - s/p Ceftriaxone and Azithromycin (10 Day course) 4. Positive blood cultures, possible contaminant - Blood culture 12/02: staph aureus - Repeat blood cultures 12/03 negative 5. CKD; mild elevation in Cr - possibly cardiorenal syndrome - Baseline Cr around 1.4-1.5 - Cr currently at 1.72 - will follow for now 6. Normocytic anemia - will follow for now 7. CAD / Ischemic cardiomyopathy - s/p AICD - c/w ASA, Plavix, Carvedilol, Digoxin 8. Chronic venous stasis dermatitis 9. COPD - no evidence of exacerbation at this time - c/w duoneb PRN and Advair 10. DM2 - c/w ISS 11. BPH - c/w Tamsulosin and Finasteride 12. Morbid obesity - May complicate his medical treatment 13. Constipation - s/p suppository - c/w docusate sodium 14. DVT prophylaxis - s/p Heparin - c/w SCDs Disposition: - 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, given multiple comorbidities and worsening status - c/w Diuresis until euvolemia is achieved - may require several more days VS,Ramy, I+O VS, Ramy, I+O Laboratory Tests 12/12/16 05:10 Calcium Level 8.6 L, Red Blood Count 3.25 L, Mean Corpuscular Volume 89.5, Mean Corpuscular Hemoglobin 28.7, Mean Corpuscular Hemoglobin Concent 32.1, Red Cell Distribution Width 15.2 H Vital Signs Date Time Temp Pulse Resp B/P Pulse Ox O2 Delivery O2 Flow Rate FiO2 12/12/16 09:10 83 12/12/16 08:54 100/60 12/12/16 08:00 Nasal Cannula 2.0 12/12/16 07:10 97.1 20 100 I&O- Last 24 Hours up to 6 AM 12/12/16 06:00 Intake Total 860 ml Output Total 1115 ml Balance -255 ml LUZMARIA SHEIKH MD Dec 12, 2016 11:05
[2016-12-12] MEDS: TAMSULOSIN 0.4 MG CAP PO SCH (21:15)
[2016-12-12] MEDS: FINASTERIDE 5 MG TAB PO SCH (21:15)
[2016-12-12] MEDS: OMEPRAZOLE 20 MG CAP PO SCH (21:24)
[2016-12-13] MEDS: FUROSEMIDE 40 MG/4 ML VIAL (J1940) IV SCH ×3 (00:09→08:00)
[2016-12-13] MEDS: IPRATROPIUM 0.5MG/ALBUTEROL 2.5MG INH SOL UD 3ML (DUONEB)(J7620) NEB SCH ×4 (02:00→20:00)
[2016-12-13 04:10] VITALS: BP 119/59
[2016-12-13] MEDS: SLF 3 ML SYR IV SCH ×3 (04:19→20:28)
[2016-12-13 05:34] LABS: MEAN CORPUSCULAR HEMOGLOBIN 27.4 pg (27.0-33.0); MEAN CORPUSCULAR HGB CONC 30.3 g/dl (32.0-36.5); MEAN CORPUSCULAR VOLUME 90.3 fl (80.0-96.0); RED CELL DISTRIBUTION WIDTH 15.4 % (11.5-14.5); WHITE BLOOD COUNT 11.1 K/mm3 (4.0-10.0)
[2016-12-13 05:46] LABS: CALCIUM LEVEL 8.4 MG/DL (8.8-10.2); CREATININE FOR GFR 1.42 MG/DL (0.70-1.30)
[2016-12-13] MEDS: HumaLOG INSULIN (NovoLOG) PER UNIT SC SCH ×4 (07:30→20:25)
[2016-12-13] MEDS: ADVAIR DISKUS 250/50 INH PWD INH SCH ×2 (07:36→19:40)
[2016-12-13 08:00] VITALS: BP 97/54
[2016-12-13] MEDS: CARVedilol 3.125 MG TAB PO SCH ×2 (08:54→20:26)
[2016-12-13] MEDS: PREGABALIN 100 MG CAP (LYRICA) PO SCH ×3 (09:33→20:27)
[2016-12-13] MEDS: DOCUSATE SODIUM 100 MG CAP PO SCH ×2 (09:34→20:28)
[2016-12-13] MEDS: RANOLAZINE 500 MG ER TAB PO SCH ×2 (09:34→20:27)
[2016-12-13] MEDS: DIGOXIN 0.125 MG TAB PO SCH (09:34)
[2016-12-13] MEDS: SENOKOT S TAB PO SCH ×2 (09:34→20:27)
[2016-12-13] MEDS: BENZONATATE 100 MG CAP PO SCH ×2 (09:35→20:28)
[2016-12-13] MEDS: FLUTICASONE PROP 0.05% NASAL SPRAY 16 GM (FLONASE) SCH ×2 (09:35→20:28)
--- NOTE | 2016-12-13 10:51 | IPNPDOC ---
Text Note Date of Service The patient was seen on 12/13/16. NOTE Subjective: Patient is a 71 year old male with a PMHx of COPD, Pulmonary HTN, CHF , CAD, Ischemic Cardiomyopathy, DM2, CKD3, Hx of Obstructive uropathy, Neuropathy, BPH, Venous stasis ulcer of LE, and Morbid Obesity who presented to the ER with complains of increasing SOB. Patient may not have remained compliant with medications. He was admitted for CHF exacerbation. Patient was seen and examined at sitting up in the chair. He generally feels well today. Advised that we will have to hold off on diuresis today given some elevation in his creatinine. Objective: Vitals (See below) General: Lying in bed, no acute distress, comfortable, AAOx3 HEENT: NC, AT CVS: RRR, +S1S2 Lungs: Poor inspiratory effort, no appreciable crackles Abdomen: Soft, ND, Improvement in tenderness along LUQ extending to left flank, +BSx4 Extremities: +PPx4, 2+ pitting edema, Venous stasis ulcers noted, - Calf tenderness Assessment and plan: 1. Left sided abdominal wall hematoma - likely 2/2 heparin injections - Improvement in pain - CT scan 12/08: reveals large abdominal hematoma of 6.6 x 12 x 21cm - s/p 2 units of PRBC and 2 units of platelets (re: dysfunctional on ASA / Plavix) - Hg post transfusion has been stable - c/w pain control with ice packs - Discussed case with Surgery (Dr. Borjas) - advised to monitor and treat conservatively - Continue to hold ASA, Plavix and Heparin 2. Dyspnea and lower extremity edema - likely 2/2 volume overload - 2/2 acute decompensated systolic and diastolic heart failure - likely 2/2 non-compliance - Presented with shortness of breath, no fevers or cough; however is saturating well currently - CT chest 11/28: large b/l pleural effusion and lower lobe infiltrate (R>L), small abdominal ascites - CXR 12/02: Mild increase in right effusion and right lung infiltrates. There appears to be mild left retrocardiac infiltrates/atelectasis. - ECHO 11/30: EF: 20-25%; Diastolic Dysfunction - c/w strict ins/outs, daily weights, and head of bed elevation - Has been some elevation in his Creatinine with diuresis; will hold off on diuretics for 24 hours 3. s/p Possible community acquired pneumonia - Presented with mild cough, no fevers / chills - CT chest on 11/28: with possible infiltrates - Respiratory panel negative; Sputum culture pending - s/p Ceftriaxone and Azithromycin (10 Day course) 4. Positive blood cultures, possible contaminant - Blood culture 12/02: staph aureus - Repeat blood cultures 12/03 negative 5. Elevation in Cr; with baseline CKD3 - Baseline Cr around 1.4-1.5 - Cr over last 3-4 days has been around 1.2; however there has been an increase in Cr - will hold lasix for 24 hours; reassess tomorrow 6. Normocytic anemia - will follow for now 7. CAD / Ischemic cardiomyopathy - s/p AICD - c/w ASA, Plavix, Carvedilol, Digoxin 8. Chronic venous stasis dermatitis 9. COPD - no evidence of exacerbation at this time - c/w duoneb PRN and Advair 10. DM2 - c/w ISS 11. BPH - c/w Tamsulosin and Finasteride 12. Morbid obesity - May complicate his medical treatment 13. Constipation - s/p suppository - c/w docusate sodium 14. DVT prophylaxis - s/p Heparin - c/w SCDs Disposition: - 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, given multiple comorbidities and worsening status - Hold diuresis given elevation in Cr VSRamy, I+O VS, Ramy, I+O Laboratory Tests 12/13/16 05:03 Calcium Level 8.4 L, Red Blood Count 3.31 L, Mean Corpuscular Volume 90.3, Mean Corpuscular Hemoglobin 27.4, Mean Corpuscular Hemoglobin Concent 30.3 L, Red Cell Distribution Width 15.4 H Vital Signs Date Time Temp Pulse Resp B/P Pulse Ox O2 Delivery O2 Flow Rate FiO2 12/13/16 09:34 88 12/13/16 08:56 Nasal Cannula 2.0 12/13/16 08:54 97/54 12/13/16 08:00 97.8 18 99 I&O- Last 24 Hours up to 6 AM 12/13/16 06:00 Intake Total 300 ml Output Total 525 ml Balance -225 ml LUZMARIA SHEIKH MD Dec 13, 2016 10:51
[2016-12-13 12:00] VITALS: BP 91/55
[2016-12-13 16:00] VITALS: BP 97/54
[2016-12-13 19:58] VITALS: BP 88/58
[2016-12-13] MEDS: TAMSULOSIN 0.4 MG CAP PO SCH (20:27)
[2016-12-13] MEDS: OMEPRAZOLE 20 MG CAP PO SCH (20:27)
[2016-12-13] MEDS: FINASTERIDE 5 MG TAB PO SCH (20:27)
[2016-12-13 23:41] VITALS: BP 109/64
[2016-12-14] MEDS: IPRATROPIUM 0.5MG/ALBUTEROL 2.5MG INH SOL UD 3ML (DUONEB)(J7620) NEB SCH ×4 (01:31→20:00)
[2016-12-14 03:49] VITALS: BP 115/70
[2016-12-14] MEDS: SLF 3 ML SYR IV SCH ×3 (03:52→19:47)
[2016-12-14] MEDS: HumaLOG INSULIN (NovoLOG) PER UNIT SC SCH ×4 (07:30→21:00)
[2016-12-14 07:36] LABS: BASO % 0.3 % (0.0-1.0); EOS # 0.1 K/mm3 (0.0-0.50); EOS % 0.7 % (0.0-3.0); LARGE UNSTAINED CELL # 0.2 K/mm3 (0.0-0.4); LARGE UNSTAINED CELL % 1.3 % (0.0-4.0); LYMPH % 12.2 % (24.0-44.0); MEAN CORPUSCULAR HEMOGLOBIN 28.8 pg (27.0-33.0); MEAN CORPUSCULAR HGB CONC 32.1 g/dl (32.0-36.5); MEAN CORPUSCULAR VOLUME 89.5 fl (80.0-96.0); MONO # 0.9 K/mm3 (0.0-0.8); MONO % 6.3 % (0.0-5.0); NEUTROPHILS # 11.7 K/mm3 (1.8-7.7); NEUTROPHILS % 79.2 % (36.0-66.0); PLATELET COUNT, AUTOMATED 207 k/mm3 (150-450); RED CELL DISTRIBUTION WIDTH 15.3 % (11.5-14.5); WHITE BLOOD COUNT 14.8 K/mm3 (4.0-10.0)
[2016-12-14 07:51] LABS: ALBUMIN 2.9 GM/DL (3.2-5.2); ALBUMIN/GLOBULIN RATIO 0.85 (1.00-1.93); BILIRUBIN,TOTAL 2.6 MG/DL (0.2-1.0); CALCIUM LEVEL 8.8 MG/DL (8.8-10.2); CREATININE FOR GFR 1.53 MG/DL (0.70-1.30); GLOMERULAR FILTRATION RATE 47.7 (>42); MAGNESIUM LEVEL 2.5 MG/DL (1.8-2.4); PHOSPHORUS LEVEL 2.7 MG/DL (2.5-4.9); POTASSIUM SERUM 4.5 MEQ/L (3.5-5.1); TOTAL PROTEIN 6.3 GM/DL (6.4-8.2)
[2016-12-14 08:00] VITALS: BP 93/55
[2016-12-14] MEDS: FUROSEMIDE 40 MG/4 ML VIAL (J1940) IV SCH ×4 (08:00→19:46)
[2016-12-14] MEDS: CARVedilol 3.125 MG TAB PO SCH ×2 (08:46→21:21)
[2016-12-14] MEDS: RANOLAZINE 500 MG ER TAB PO SCH ×2 (08:58→21:21)
[2016-12-14] MEDS: SENOKOT S TAB PO SCH ×2 (08:58→21:21)
[2016-12-14] MEDS: PREGABALIN 100 MG CAP (LYRICA) PO SCH ×2 (08:58→15:01)
[2016-12-14] MEDS: DOCUSATE SODIUM 100 MG CAP PO SCH ×2 (08:58→21:21)
[2016-12-14] MEDS: DIGOXIN 0.125 MG TAB PO SCH (08:58)
[2016-12-14] MEDS: BENZONATATE 100 MG CAP PO SCH ×2 (08:58→21:21)
[2016-12-14] MEDS: FLUTICASONE PROP 0.05% NASAL SPRAY 16 GM (FLONASE) SCH ×2 (08:59→21:22)
--- NOTE | 2016-12-14 10:16 | IPNPDOC ---
Text Note Date of Service The patient was seen on 12/14/16. NOTE Subjective: Patient is a 71 year old male with a PMHx of COPD, Pulmonary HTN, CHF , CAD, Ischemic Cardiomyopathy, DM2, CKD3, Hx of Obstructive uropathy, Neuropathy, BPH, Venous stasis ulcer of LE, and Morbid Obesity who presented to the ER with complains of increasing SOB. Patient may not have remained compliant with medications. He was admitted for CHF exacerbation. Patient was seen and examined at sitting up in the chair. He notes that today he has a sore throat. He has had improvement in his abdominal pain. His legs remain swollen but he is able to ambulate. Objective: Vitals (See below) General: Lying in bed, no acute distress, comfortable, AAOx3 HEENT: NC, AT CVS: RRR, +S1S2 Lungs: Poor inspiratory effort, no appreciable crackles Abdomen: Soft, ND, Improvement in tenderness along LUQ extending to left flank, +BSx4 Extremities: +PPx4, 2+ pitting edema, Venous stasis ulcers noted, - Calf tenderness Assessment and plan: 1. Left sided abdominal wall hematoma - likely 2/2 heparin injections - Improvement in pain - CT scan 12/08: reveals large abdominal hematoma of 6.6 x 12 x 21cm - s/p 2 units of PRBC and 2 units of platelets (re: dysfunctional on ASA / Plavix) - Hg post transfusion has been stable - c/w pain control with ice packs - Discussed case with Surgery (Dr. Borjas) - advised to monitor and treat conservatively - Continue to hold ASA, Plavix and Heparin 2. Dyspnea and lower extremity edema - likely 2/2 volume overload - 2/2 acute decompensated systolic and diastolic heart failure - likely 2/2 non-compliance - Presented with shortness of breath, no fevers or cough; however is saturating well currently - CT chest 11/28: large b/l pleural effusion and lower lobe infiltrate (R>L), small abdominal ascites - CXR 12/02: Mild increase in right effusion and right lung infiltrates. There appears to be mild left retrocardiac infiltrates/atelectasis. - ECHO 11/30: EF: 20-25%; Diastolic Dysfunction - c/w strict ins/outs, daily weights, and head of bed elevation - Cr at 1.53 today; will continue with diuresis today 3. s/p Possible community acquired pneumonia - Today (12/14) he notes a sore throat - Worsening leukocytosis; no febrile episodes - CT chest on 11/28: with possible infiltrates - Will check CXR - Will repeat respiratory panel and sputum culture - s/p Ceftriaxone and Azithromycin (10 Day course) - Based on results will start antibiotics 4. Positive blood cultures, possible contaminant - Blood culture 12/02: staph aureus - Repeat blood cultures 12/03 negative 5. Elevation in Cr; with baseline CKD3 - Baseline Cr around 1.4-1.5 - Cr over last 3-4 days has been around 1.2; however there has been an increase in Cr 6. Normocytic anemia - will follow for now 7. CAD / Ischemic cardiomyopathy - s/p AICD - c/w ASA, Plavix, Carvedilol, Digoxin 8. Chronic venous stasis dermatitis 9. COPD - no evidence of exacerbation at this time - c/w duoneb PRN and Advair 10. DM2 - c/w ISS 11. BPH - c/w Tamsulosin and Finasteride 12. Morbid obesity - May complicate his medical treatment 13. Constipation - s/p suppository - c/w docusate sodium 14. DVT prophylaxis - s/p Heparin - c/w SCDs Disposition: - 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, given multiple comorbidities and worsening status - Restart diuresis - Evaluate for HCAP / Viral illness; restart antibiotics accordingly VS,Mariannee, I+O VS, Fishbone, I+O Laboratory Tests 12/14/16 07:22 Calcium Level 8.8, Phosphorus Level 2.7, Aspartate Amino Transf (AST/SGOT) 20, Alanine Aminotransferase (ALT/SGPT) 10 L, Alkaline Phosphatase 198 H, Total Bilirubin 2.6 H, Total Protein 6.3 L, Albumin 2.9 L, Red Blood Count 3.61 L, Mean Corpuscular Volume 89.5, Mean Corpuscular Hemoglobin 28.8, Mean Corpuscular Hemoglobin Concent 32.1, Red Cell Distribution Width 15.3 H, Neutrophils (%) (Auto) 79.2 H, Lymphocytes (%) (Auto) 12.2 L, Monocytes (%) ( Auto) 6.3 H, Eosinophils (%) (Auto) 0.7, Basophils (%) (Auto) 0.3, Neutrophils # (Auto) 11.7 H, Lymphocytes # (Auto) 2.0, Monocytes # (Auto) 0.9 H, Eosinophils # (Auto) 0.1, Basophils # (Auto) 0.0 Vital Signs Date Time Temp Pulse Resp B/P Pulse Ox O2 Delivery O2 Flow Rate FiO2 12/14/16 08:58 85 12/14/16 08:46 93/55 12/14/16 08:30 Nasal Cannula 2.0 12/14/16 08:00 98.1 20 99 I&O- Last 24 Hours up to 6 AM 12/14/16 06:00 Intake Total 900 ml Output Total 575 ml Balance 325 ml LUZMARIA SHEIKH MD Dec 14, 2016 10:16
--- NOTE | 2016-12-14 10:40 | REP ---
REASON FOR EXAM: Followup. COMPARISON: 12/02/2016 The technique utilized in obtaining the radiograph has magnified the cardiac silhouette and accentuated the interstitial markings. There is no change from the prior exam. There is cardiomegaly. There is a single chamber bipolar pacemaker device and AICD status quo. Note is again made of previous median sternotomy. There is an unchanged opacity in the right lower lobe. No new opacity is seen to have developed giving the technical factors of today's exam compared to the prior exam. IMPRESSION: No evidence of significant change. Signed by Tacho Camacho DO 12/14/2016 10:55 A
[2016-12-14] MEDS: ADVAIR DISKUS 250/50 INH PWD INH SCH ×2 (11:02→20:14)
[2016-12-14 12:00] VITALS: BP 102/58
[2016-12-14] MEDS: cefTRIAXone SOD 1 GM in D5W MINI-BAG PLUS 50 ML IV SCH (15:01)
[2016-12-14] MEDS: AZITHROMYCIN INJ 500 MG, VIAL MATE ADAPTER 1 EACH in D5W 250 ML IV SCH (15:52)
[2016-12-14 16:00] VITALS: BP 115/62
[2016-12-14 19:26] VITALS: BP 115/59
[2016-12-14 21:18] VITALS: BP 114/66
[2016-12-14] MEDS: OMEPRAZOLE 20 MG CAP PO SCH (21:20)
[2016-12-14] MEDS: FINASTERIDE 5 MG TAB PO SCH (21:21)
[2016-12-14] MEDS: TAMSULOSIN 0.4 MG CAP PO SCH (21:21)
[2016-12-15] VITALS (7 sets, daily range): BP systolic 103–118; BP diastolic 58–69
[2016-12-15] MEDS: IPRATROPIUM 0.5MG/ALBUTEROL 2.5MG INH SOL UD 3ML (DUONEB)(J7620) NEB SCH ×4 (01:50→20:00)
[2016-12-15] MEDS: cefTRIAXone SOD 1 GM in D5W MINI-BAG PLUS 50 ML IV SCH ×2 (02:46→14:34)
[2016-12-15] MEDS: SLF 3 ML SYR IV SCH ×3 (04:36→21:02)
[2016-12-15] MEDS: FUROSEMIDE 40 MG/4 ML VIAL (J1940) IV SCH ×7 (04:36→23:24)
[2016-12-15 06:02] LABS: BASO % 0.2 % (0.0-1.0); EOS # 0.1 K/mm3 (0.0-0.50); EOS % 0.5 % (0.0-3.0); LARGE UNSTAINED CELL # 0.2 K/mm3 (0.0-0.4); LARGE UNSTAINED CELL % 1.2 % (0.0-4.0); LYMPH % 13.7 % (24.0-44.0); MEAN CORPUSCULAR HEMOGLOBIN 28.6 pg (27.0-33.0); MEAN CORPUSCULAR HGB CONC 31.9 g/dl (32.0-36.5); MEAN CORPUSCULAR VOLUME 89.7 fl (80.0-96.0); MONO # 0.8 K/mm3 (0.0-0.8); MONO % 6.4 % (0.0-5.0); NEUTROPHILS # 10.2 K/mm3 (1.8-7.7); PLATELET COUNT, AUTOMATED 185 k/mm3 (150-450); RED CELL DISTRIBUTION WIDTH 15.6 % (11.5-14.5); WHITE BLOOD COUNT 13.1 K/mm3 (4.0-10.0)
[2016-12-15 06:23] LABS: ALBUMIN 2.7 GM/DL (3.2-5.2); ALBUMIN/GLOBULIN RATIO 0.73 (1.00-1.93); BILIRUBIN,TOTAL 2.3 MG/DL (0.2-1.0); CALCIUM LEVEL 8.6 MG/DL (8.8-10.2); CREATININE FOR GFR 1.5 MG/DL (0.70-1.30); GLOMERULAR FILTRATION RATE 48.8 (>42); MAGNESIUM LEVEL 2.6 MG/DL (1.8-2.4); POTASSIUM SERUM 4.3 MEQ/L (3.5-5.1); TOTAL PROTEIN 6.4 GM/DL (6.4-8.2)
[2016-12-15] MEDS: ADVAIR DISKUS 250/50 INH PWD INH SCH ×2 (07:05→20:49)
[2016-12-15] MEDS: HumaLOG INSULIN (NovoLOG) PER UNIT SC SCH ×4 (07:06→21:06)
[2016-12-15] MEDS: BENZONATATE 100 MG CAP PO SCH ×2 (08:59→21:00)
[2016-12-15] MEDS: DIGOXIN 0.125 MG TAB PO SCH (08:59)
[2016-12-15] MEDS: SENOKOT S TAB PO SCH ×2 (08:59→21:02)
[2016-12-15] MEDS: DOCUSATE SODIUM 100 MG CAP PO SCH ×2 (08:59→21:01)
[2016-12-15] MEDS: RANOLAZINE 500 MG ER TAB PO SCH ×2 (08:59→21:00)
[2016-12-15] MEDS: FLUTICASONE PROP 0.05% NASAL SPRAY 16 GM (FLONASE) SCH ×2 (09:00→21:02)
[2016-12-15] MEDS: CARVedilol 3.125 MG TAB PO SCH ×2 (09:00→21:01)
[2016-12-15] MEDS ORDERED: PREGABALIN 100 MG CAP (LYRICA) PO SCH ×2 (09:00→18:00)
--- NOTE | 2016-12-15 12:28 | IPNPDOC ---
Text Note Date of Service The patient was seen on 12/15/16. NOTE Subjective: Patient is a 71 year old male with a PMHx of COPD, Pulmonary HTN, CHF , CAD, Ischemic Cardiomyopathy, DM2, CKD3, Hx of Obstructive uropathy, Neuropathy, BPH, Venous stasis ulcer of LE, and Morbid Obesity who presented to the ER with complains of increasing SOB. Patient may not have remained compliant with medications. He was admitted for CHF exacerbation. Patient was seen and examined at the bed side. He has no new complaints today. Objective: Vitals (See below) General: Lying in bed, no acute distress, comfortable, AAOx3 HEENT: NC, AT CVS: RRR, +S1S2 Lungs: Poor inspiratory effort, no appreciable crackles Abdomen: Soft, ND, Improvement in tenderness along LUQ extending to left flank, +BSx4 Extremities: +PPx4, 2+ pitting edema, Venous stasis ulcers noted, - Calf tenderness Assessment and plan: 1. Left sided abdominal wall hematoma - likely 2/2 heparin injections - CT scan 12/08: reveals large abdominal hematoma of 6.6 x 12 x 21cm - s/p 2 units PRBC, 2 units platelets - Hg stable and hematoma size stable - c/w ice packs PRN pain - Continue to hold ASA, Plavix and Heparin 2. Dyspnea and lower extremity edema - likely 2/2 volume overload - 2/2 acute decompensated systolic and diastolic heart failure - likely 2/2 non-compliance - Saturating well, not SOB, LE edema persists - CT chest 11/28: large b/l pleural effusion and lower lobe infiltrate (R>L), small abdominal ascites - CXR 12/02: Mild increase in right effusion and right lung infiltrates. There appears to be mild left retrocardiac infiltrates/atelectasis. - ECHO 11/30: EF: 20-25%; Diastolic Dysfunction - c/w strict ins/outs, daily weights, and head of bed elevation - c/w diuresis today for net negative fluid balance 3. Possible recurrent community acquired pneumonia - Leukocytosis; no febrile episodes - CT chest on 11/28: with possible infiltrates - CXR with persistent infiltrate at RLL - Sputum culture pending; Resp panel negative - Restarted Ceftriaxone and Azithromycin (Day #2; after completion of 10 Day course prior) 4. Positive blood cultures, possible contaminant - Blood culture 12/02: staph aureus - Repeat blood cultures 12/03 negative 5. Elevation in Cr; with baseline CKD3 - Baseline Cr around 1.4-1.5 - Cr over last 3-4 days has been around 1.2; however there has been an increase in Cr 6. Normocytic anemia - will follow for now 7. CAD / Ischemic cardiomyopathy - s/p AICD - c/w ASA, Plavix, Carvedilol, Digoxin 8. Chronic venous stasis dermatitis 9. COPD - no evidence of exacerbation at this time - c/w duoneb PRN and Advair 10. DM2 - c/w ISS 11. BPH - c/w Tamsulosin and Finasteride 12. Morbid obesity - May complicate his medical treatment 13. Constipation - s/p suppository - c/w docusate sodium 14. DVT prophylaxis - s/p Heparin - c/w SCDs Disposition: - 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, given multiple comorbidities and worsening status - c/w Diuresis and Abx for pneumonia VS,Fishbone, I+O VS, Fishbone, I+O Laboratory Tests 12/15/16 05:24 Calcium Level 8.6 L, Phosphorus Level 3.0, Aspartate Amino Transf (AST/SGOT) 19 , Alanine Aminotransferase (ALT/SGPT) 8 L, Alkaline Phosphatase 181 H, Total Bilirubin 2.3 H, Total Protein 6.4, Albumin 2.7 L, Red Blood Count 3.43 L, Mean Corpuscular Volume 89.7, Mean Corpuscular Hemoglobin 28.6, Mean Corpuscular Hemoglobin Concent 31.9 L, Red Cell Distribution Width 15.6 H, Neutrophils (%) ( Auto) 78.0 H, Lymphocytes (%) (Auto) 13.7 L, Monocytes (%) (Auto) 6.4 H, Eosinophils (%) (Auto) 0.5, Basophils (%) (Auto) 0.2, Neutrophils # (Auto) 10.2 H, Lymphocytes # (Auto) 2.0, Monocytes # (Auto) 0.8, Eosinophils # (Auto) 0.1, Basophils # (Auto) 0.0 Vital Signs Date Time Temp Pulse Resp B/P Pulse Ox O2 Delivery O2 Flow Rate FiO2 12/15/16 12:00 98.7 70 18 105/68 96 Nasal Cannula 2.0 I&O- Last 24 Hours up to 6 AM 12/15/16 05:59 Intake Total 1260 ml Output Total 1300 ml Balance -40 ml LUZMARIA SHEIKH MD Dec 15, 2016 12:28
[2016-12-15] MEDS: AZITHROMYCIN INJ 500 MG, VIAL MATE ADAPTER 1 EACH in D5W 250 ML IV SCH (15:11)
[2016-12-15] MEDS: TAMSULOSIN 0.4 MG CAP PO SCH (21:01)
[2016-12-15] MEDS: OMEPRAZOLE 20 MG CAP PO SCH (21:01)
[2016-12-15] MEDS: FINASTERIDE 5 MG TAB PO SCH (21:01)
[2016-12-16] MEDS: IPRATROPIUM 0.5MG/ALBUTEROL 2.5MG INH SOL UD 3ML (DUONEB)(J7620) NEB SCH ×4 (02:00→20:00)
[2016-12-16] MEDS: cefTRIAXone SOD 1 GM in D5W MINI-BAG PLUS 50 ML IV SCH ×2 (04:02→14:54)
[2016-12-16] MEDS: FUROSEMIDE 40 MG/4 ML VIAL (J1940) IV SCH ×5 (04:05→21:15)
[2016-12-16] MEDS: SLF 3 ML SYR IV SCH ×3 (04:06→21:17)
[2016-12-16 04:58] VITALS: BP 115/62
[2016-12-16 05:39] LABS: BASO % 0.4 % (0.0-1.0); EOS # 0.1 K/mm3 (0.0-0.50); EOS % 1.1 % (0.0-3.0); LARGE UNSTAINED CELL # 0.2 K/mm3 (0.0-0.4); LARGE UNSTAINED CELL % 2.1 % (0.0-4.0); LYMPH # 1.4 K/mm3 (1.5-4.5); LYMPH % 14.3 % (24.0-44.0); MEAN CORPUSCULAR HEMOGLOBIN 28.1 pg (27.0-33.0); MEAN CORPUSCULAR HGB CONC 30.9 g/dl (32.0-36.5); MEAN CORPUSCULAR VOLUME 91.1 fl (80.0-96.0); MONO # 0.7 K/mm3 (0.0-0.8); MONO % 6.5 % (0.0-5.0); NEUTROPHILS # 7.6 K/mm3 (1.8-7.7); NEUTROPHILS % 75.5 % (36.0-66.0); PLATELET COUNT, AUTOMATED 170 k/mm3 (150-450); RED CELL DISTRIBUTION WIDTH 15.9 % (11.5-14.5); WHITE BLOOD COUNT 10.1 K/mm3 (4.0-10.0)
[2016-12-16 05:42] LABS: ALBUMIN 2.6 GM/DL (3.2-5.2); ALBUMIN/GLOBULIN RATIO 0.79 (1.00-1.93); BILIRUBIN,TOTAL 1.9 MG/DL (0.2-1.0); CALCIUM LEVEL 8.2 MG/DL (8.8-10.2); CREATININE FOR GFR 1.56 MG/DL (0.70-1.30); GLOMERULAR FILTRATION RATE 46.7 (>42); MAGNESIUM LEVEL 2.3 MG/DL (1.8-2.4); PHOSPHORUS LEVEL 3.3 MG/DL (2.5-4.9); POTASSIUM SERUM 4.2 MEQ/L (3.5-5.1); TOTAL PROTEIN 5.9 GM/DL (6.4-8.2)
[2016-12-16] MEDS: ADVAIR DISKUS 250/50 INH PWD INH SCH ×2 (07:06→19:57)
[2016-12-16] MEDS: HumaLOG INSULIN (NovoLOG) PER UNIT SC SCH ×4 (07:23→21:24)
[2016-12-16 08:00] VITALS: BP 131/56
[2016-12-16] MEDS ORDERED: PREGABALIN 100 MG CAP (LYRICA) PO SCH (09:00)
[2016-12-16] MEDS: DOCUSATE SODIUM 100 MG CAP PO SCH ×2 (09:00→21:16)
[2016-12-16] MEDS: SENOKOT S TAB PO SCH ×2 (09:00→21:16)
[2016-12-16] MEDS: DIGOXIN 0.125 MG TAB PO SCH (09:43)
[2016-12-16] MEDS: CARVedilol 3.125 MG TAB PO SCH ×2 (09:43→21:16)
[2016-12-16] MEDS: BENZONATATE 100 MG CAP PO SCH ×2 (09:43→21:16)
[2016-12-16] MEDS: RANOLAZINE 500 MG ER TAB PO SCH ×2 (09:44→21:15)
[2016-12-16] MEDS: FLUTICASONE PROP 0.05% NASAL SPRAY 16 GM (FLONASE) SCH ×2 (09:45→21:17)
--- NOTE | 2016-12-16 10:31 | IPN ---
DATE OF SERVICE: 12/16/2016 The patient seen and examined at the bedside. Chart has been reviewed. He continues to have some congestion and shortness of breath, unchanged from yesterday. No fever or chills. No chest pain, pressure, or tightness. Speaking in full sentences. No use of respiratory accessory muscles. No issues on telemetry. Remains in sinus rhythm. Temperature 97.2, pulse 61, respiratory rate 18, blood pressure 131/56, 95% on 2 liters nasal cannula. Generally, the patient is awake, alert, oriented times three. Lying in bed. In no distress. Speaks in full sentences. Lungs: Diminished breath sounds. No crackles. Heart: S1, S2. Sinus rhythm. No murmurs, rubs, or gallops. Abdomen: Soft. Slight tenderness left upper quadrant on the flank. Positive bowel sounds. Extremities: 2+ pitting edema. Venous stasis ulcers. LABORATORY DATA: White count 10, hemoglobin 10, hematocrit 32, platelet count 170. Sodium 136, potassium 4.2, chloride 92, bicarbonate 39, BUN 47, creatinine 1.56, glucose of 138. MICROBIOLOGY: Staphylococcus aureus blood culture 12/02/2016. 12/03/2016 blood culture negative. ASSESSMENT AND PLAN: This is a 71-year-old male with history of chronic obstructive pulmonary disease (COPD), pulmonary hypertension, congestive heart failure (CHF), coronary artery disease (CAD), ischemic cardiomyopathy, type 2 diabetes, chronic kidney disease stage III, obstructive uropathy, neuropathy, benign prostatic hypertrophy (BPH), venous stasis ulcer of lower extremity, morbid obesity, who presents with increasing shortness of breath, admitted for CHF exacerbation. CURRENT ISSUES: 1. Dyspnea and chronic lower extremity edema secondary to acute decompensated systolic and diastolic heart failure due to noncompliance. Currently, not short of breath. Lower extremity edema persists. CT chest shows large bilateral effusion, lower lobe infiltrate, small abdominal ascites, ejection fraction (EF) of 20% to 25%, diastolic dysfunction. Strict intake and output (I and O) and daily weights. Will continue with diurese and net negative fluid balance. 2. Left-sided abdominal wall hematoma secondary to heparin injection, 6.6 x 12 x 21 cm, status post 2 units red blood cell (RBC) transfusion and 2 units of platelet transfusion. Hemoglobin and hematocrit remain stable. Continue with ice packs as needed. We have withheld the patient's aspirin, Plavix, and heparin due to recent hematoma. 3. Community-acquired pneumonia. CT chest on 11/28/2016 showed possible infiltrate. Chest x-ray showed right lower lobe infiltrates. Sputum culture pending. Respiratory panel is negative. Currently, on ceftriaxone and azithromycin day #3. 4. Staphylococcus aureus bacteremia. Will have to recheck the patient's two sets of blood cultures, sedimentation rate, and C-reactive protein (CRP), and track the patient's white count. Check for methicillin-resistant Staphylococcus aureus (MRSA) screen, and will discuss transesophageal echocardiogram to rule out endocarditis. Possible source is the pneumonia. 5. Elevated creatinine with baseline chronic kidney disease of 1.4 to 1.5. Creatinine has increased to 1.56 but significantly improved from 1.9 on 12/02/2016. 6. History of coronary artery disease, ischemic cardiomyopathy, status post automatic implantable cardioverter-defibrillator (AICD). The patient's aspirin and Plavix withheld due to a recent abdominal wall hematoma. 7. Morbid obesity, complicating current medical issues. 8. Chronic obstructive pulmonary disease. No acute exacerbation. 9. Chronic constipation. Suppositories and Colace. 10. Deep venous thrombosis (DVT) prophylaxis. On compression stockings.
[2016-12-16 11:59] VITALS: BP 116/64
[2016-12-16] MEDS: PREGABALIN 100 MG CAP (LYRICA) PO SCH ×2 (12:20→21:15)
[2016-12-16] MEDS: AZITHROMYCIN 250 MG TAB PO SCH (15:48)
[2016-12-16 16:00] VITALS: BP 116/60
--- NOTE | 2016-12-16 16:08 | REP ---
Left lower extremity deep vein duplex ultrasound: The deep veins demonstrate normal compression, normal Doppler color flow and normal Doppler waveforms with respiration augmentation at multiple levels from the left popliteal vein to the common femoral vein. Impression: There is no evidence of deep vein thrombus in the left lower extremity. Soft tissue edema of the extremity is noted during the study. Signed by Sahil Tracy MD 12/16/2016 04:00 P
[2016-12-16 20:00] VITALS: BP 121/68
[2016-12-16] MEDS: TAMSULOSIN 0.4 MG CAP PO SCH (21:16)
[2016-12-16] MEDS: FINASTERIDE 5 MG TAB PO SCH (21:16)
[2016-12-16] MEDS: OMEPRAZOLE 20 MG CAP PO SCH (21:16)
[2016-12-17] VITALS (8 sets, daily range): BP systolic 98–130; BP diastolic 56–66
[2016-12-17] MEDS: FUROSEMIDE 40 MG/4 ML VIAL (J1940) IV SCH ×2 (00:11→03:58)
[2016-12-17] MEDS: IPRATROPIUM 0.5MG/ALBUTEROL 2.5MG INH SOL UD 3ML (DUONEB)(J7620) NEB SCH ×4 (02:30→20:00)
[2016-12-17] MEDS: cefTRIAXone SOD 1 GM in D5W MINI-BAG PLUS 50 ML IV SCH (03:57)
[2016-12-17] MEDS: SLF 3 ML SYR IV SCH ×3 (03:58→21:41)
[2016-12-17 05:36] LABS: BASO % 0.4 % (0.0-1.0); EOS # 0.1 K/mm3 (0.0-0.50); EOS % 0.8 % (0.0-3.0); LARGE UNSTAINED CELL # 0.3 K/mm3 (0.0-0.4); LARGE UNSTAINED CELL % 2.4 % (0.0-4.0); LYMPH # 1.6 K/mm3 (1.5-4.5); LYMPH % 14.7 % (24.0-44.0); MEAN CORPUSCULAR HEMOGLOBIN 28.1 pg (27.0-33.0); MEAN CORPUSCULAR HGB CONC 31.1 g/dl (32.0-36.5); MEAN CORPUSCULAR VOLUME 90.3 fl (80.0-96.0); MONO # 0.8 K/mm3 (0.0-0.8); MONO % 7.3 % (0.0-5.0); NEUTROPHILS # 8.1 K/mm3 (1.8-7.7); NEUTROPHILS % 74.4 % (36.0-66.0); PLATELET COUNT, AUTOMATED 185 k/mm3 (150-450); RED CELL DISTRIBUTION WIDTH 16.2 % (11.5-14.5); WHITE BLOOD COUNT 10.9 K/mm3 (4.0-10.0)
[2016-12-17 05:57] LABS: ALBUMIN 2.6 GM/DL (3.2-5.2); ALBUMIN/GLOBULIN RATIO 0.72 (1.00-1.93); BILIRUBIN,TOTAL 1.8 MG/DL (0.2-1.0); CALCIUM LEVEL 8.6 MG/DL (8.8-10.2); CREATININE FOR GFR 1.38 MG/DL (0.70-1.30); GLOMERULAR FILTRATION RATE 53.8 (>42); MAGNESIUM LEVEL 2.3 MG/DL (1.8-2.4); PHOSPHORUS LEVEL 3.3 MG/DL (2.5-4.9); POTASSIUM SERUM 3.7 MEQ/L (3.5-5.1); TOTAL PROTEIN 6.2 GM/DL (6.4-8.2)
[2016-12-17] MEDS: ADVAIR DISKUS 250/50 INH PWD INH SCH ×2 (07:15→21:29)
[2016-12-17] MEDS: HumaLOG INSULIN (NovoLOG) PER UNIT SC SCH ×4 (08:29→21:17)
[2016-12-17] MEDS: POTASSIUM CHLORIDE 10 MEQ SR TABLET PO SCH ×2 (09:17→21:41)
[2016-12-17] MEDS: RANOLAZINE 500 MG ER TAB PO SCH ×2 (09:17→21:40)
[2016-12-17] MEDS: AZITHROMYCIN 250 MG TAB PO SCH (09:17)
[2016-12-17] MEDS: DOCUSATE SODIUM 100 MG CAP PO SCH ×2 (09:17→21:40)
[2016-12-17] MEDS: BENZONATATE 100 MG CAP PO SCH ×2 (09:17→21:41)
[2016-12-17] MEDS: CARVedilol 3.125 MG TAB PO SCH ×2 (09:18→21:37)
[2016-12-17] MEDS: DIGOXIN 0.125 MG TAB PO SCH (09:18)
[2016-12-17] MEDS: SENOKOT S TAB PO SCH ×2 (09:18→21:40)
[2016-12-17] MEDS: FLUTICASONE PROP 0.05% NASAL SPRAY 16 GM (FLONASE) SCH ×2 (09:19→21:41)
--- NOTE | 2016-12-17 09:24 | REP ---
Portable chest, single AP view, the patient semi upright: Comparison is 12/14/2016. Large opacity inferiorly right lung is again noted compatible with an effusion. The visualized right upper lobe remains clear. A few surgical clips are again noted projected over the right apex. Left lung is clear. There are several surgical clips in the left apex. There are sternotomy wires, unchanged. Cardiac size is borderline, unchanged. A single lead pacemaker is again noted, unchanged. Impression: Persisting opacity inferiorly in the right hemithorax. Signed by Sahil Tracy MD 12/17/2016 09:15 A
[2016-12-17] MEDS: PREGABALIN 100 MG CAP (LYRICA) PO SCH ×2 (10:07→21:40)
[2016-12-17] MEDS: CEFTAROLINE FOSAMIL 600 MG in D5W MINI-BAG PLUS 50 ML IV SCH ×2 (10:36→21:42)
[2016-12-17] MEDS: FUROSEMIDE injection 250 MG in D5W 225 ML IV SCH (10:37)
--- NOTE | 2016-12-17 10:42 | IPN ---
DATE: 12/17/2016 The patient seen and examined at the bedside. Chart has been reviewed. This morning the patient has no new complaints. Continues to have chronic 3+ pitting edema, shortness of breath is at baseline. No chest pain, pressure or tightness , nausea, vomiting, headache, chills, fever, cough. Telemetry is unremarkable. Temperature 97.9, pulse 84, respiratory rate 18, blood pressure 130/66, 99% on 2 liters nasal cannula. Input and output: Input 720 and output 1750, negative 1030. Current weight is 84 kg. Admission weight was 92.85 kg. GENERAL: Awake, alert, oriented to person and place. Answering questions appropriately. No respiratory distress or use of respiratory accessory muscles. HEART: S1, S2. Sinus rhythm. ABDOMEN: Soft. Left upper quadrant and left flank with mild tenderness. Positive bowel sounds times four quadrants. EXTREMITIES: 3+ pitting edema to sacrum with anasarca in bilateral upper extremities. LABORATORY DATA: White count 10.9, hemoglobin 9.5, hematocrit 30, platelet count 185. Sodium 136, potassium 3.7, chloride 92, bicarbonate 39, BUN 46, creatinine 1.38, glucose of 148, total bilirubin 1.8, AST 15, ALT 8, alkaline phosphatase 161, BNP 2160. MICROBIOLOGY: 12/02/2016 blood culture with Staphylococcus aureus. Sputum culture Stenotrophomonas. Ultrasound of the left lower extremity shows soft tissue edema of extremity. ASSESSMENT AND PLAN: This is a 71-year-old male with history of chronic obstructive pulmonary disease (COPD), pulmonary hypertension, congestive heart failure (CHF), coronary artery disease (CAD), ischemic cardiomyopathy, type 2 diabetes, chronic kidney disease stage III, obstructive uropathy, neuropathy, benign prostatic hypertrophy (BPH), chronic venous stasis of bilateral lower extremities, morbid obesity, who presented with increasing shortness of breath, admitted for CHF exacerbation. IMPRESSION: 1. CHF exacerbation, systolic and diastolic dysfunction, ejection fraction of 20 to 25%. CT chest showed large bilateral effusions and lower lobe infiltrate, small abdominal ascites with possible congested liver with abnormal liver function tests. Continue strict input and output, fluid restriction, daily weight. Change to IV Lasix drip for better diuresis. Monitor for electrolyte abnormalities, low potassium and low magnesium and patient's creatinine. 2. Left-sided abdominal wall hematoma secondary to heparin injections. The patient required 2 units of red blood cell (RBC) transfusion. Hemoglobin and hematocrit remain stable. Continue with ice packs. The patient's aspirin, Plavix, and heparin were held due to recent hematoma. 3. Community-acquired pneumonia with right lower lobe infiltrate on x-ray. Sputum culture showed Stenotrophomonas. The patient is day #5 on ceftriaxone and azithromycin. Due to positive Staphylococcus aureus on blood culture, we will change to ceftaroline and await results of the repeat blood cultures on 12/16/2016. Previous resistant pattern, resistant to penicillin G, sensitive to oxacillin, resistant to erythromycin. 4. Methicillin sensitive Staphylococcus aureus (MSSA) bacteremia. This may be secondary to pneumonia. Obtain a MRSA screen. May need a transesophageal echo if 2-dimensional echo shows no vegetations. Continue to check sed rate and CRP. The patient was open to a transesophageal echo once CHF is improved and the patient is clinically stable. 5. Chronic kidney disease. Baseline creatinine 1.4 to 1.5, currently at baseline. 6. History of coronary artery disease, ischemic cardiomyopathy, status post automatic implantable cardioverter-defibrillator (AICD). Aspirin and Plavix withheld due to a recent abdominal wall hematoma. 7. Morbid obesity, complicating current medical issues. 8. Chronic obstructive pulmonary disease. No acute exacerbation. 9. Chronic constipation. Suppositories and Colace. MTDD
[2016-12-17] MEDS: SODIUM CHLORIDE 0.9% INJ 10 ML SYR IV SCH (17:10)
[2016-12-17 20:52] LABS: CALCIUM LEVEL 8.5 MG/DL (8.8-10.2); CREATININE FOR GFR 1.4 MG/DL (0.70-1.30); GLOMERULAR FILTRATION RATE 52.9 (>42); POTASSIUM SERUM 4.3 MEQ/L (3.5-5.1)
[2016-12-17] MEDS: TAMSULOSIN 0.4 MG CAP PO SCH (21:41)
[2016-12-17] MEDS: FINASTERIDE 5 MG TAB PO SCH (21:41)
[2016-12-17] MEDS: OMEPRAZOLE 20 MG CAP PO SCH (21:41)
[2016-12-18] MEDS: IPRATROPIUM 0.5MG/ALBUTEROL 2.5MG INH SOL UD 3ML (DUONEB)(J7620) NEB SCH ×4 (01:56→20:00)
[2016-12-18 04:15] VITALS: BP 106/56
[2016-12-18] MEDS: SLF 3 ML SYR IV SCH ×3 (04:56→21:06)
[2016-12-18] MEDS: SODIUM CHLORIDE 0.9% INJ 10 ML SYR IV SCH ×2 (04:57→17:20)
[2016-12-18 05:31] LABS: ALBUMIN 2.6 GM/DL (3.2-5.2); ALBUMIN/GLOBULIN RATIO 0.87 (1.00-1.93); BILIRUBIN,TOTAL 1.9 MG/DL (0.2-1.0); CALCIUM LEVEL 8.3 MG/DL (8.8-10.2); CREATININE FOR GFR 1.41 MG/DL (0.70-1.30); GLOMERULAR FILTRATION RATE 52.5 (>42); PHOSPHORUS LEVEL 3.4 MG/DL (2.5-4.9); POTASSIUM SERUM 4.3 MEQ/L (3.5-5.1); TOTAL PROTEIN 5.6 GM/DL (6.4-8.2)
[2016-12-18 05:37] LABS: BASO % 0.3 % (0.0-1.0); EOS # 0.1 K/mm3 (0.0-0.50); EOS % 0.7 % (0.0-3.0); LARGE UNSTAINED CELL # 0.2 K/mm3 (0.0-0.4); LARGE UNSTAINED CELL % 2.4 % (0.0-4.0); LYMPH # 1.4 K/mm3 (1.5-4.5); MEAN CORPUSCULAR HEMOGLOBIN 29.2 pg (27.0-33.0); MEAN CORPUSCULAR HGB CONC 31.8 g/dl (32.0-36.5); MEAN CORPUSCULAR VOLUME 91.8 fl (80.0-96.0); MONO # 0.8 K/mm3 (0.0-0.8); MONO % 8.5 % (0.0-5.0); NEUTROPHILS # 6.4 K/mm3 (1.8-7.7); PLATELET COUNT, AUTOMATED 159 k/mm3 (150-450); RED CELL DISTRIBUTION WIDTH 16.2 % (11.5-14.5); WHITE BLOOD COUNT 8.9 K/mm3 (4.0-10.0)
[2016-12-18] MEDS: ADVAIR DISKUS 250/50 INH PWD INH SCH ×2 (07:36→20:20)
[2016-12-18 08:00] VITALS: BP 99/56
[2016-12-18] MEDS: HumaLOG INSULIN (NovoLOG) PER UNIT SC SCH ×4 (08:41→21:31)
[2016-12-18] MEDS: CARVedilol 3.125 MG TAB PO SCH (09:00)
[2016-12-18] MEDS: DOCUSATE SODIUM 100 MG CAP PO SCH ×2 (09:17→21:04)
[2016-12-18] MEDS: RANOLAZINE 500 MG ER TAB PO SCH ×2 (09:18→21:04)
[2016-12-18] MEDS: PREGABALIN 100 MG CAP (LYRICA) PO SCH ×2 (09:18→21:04)
[2016-12-18] MEDS: DIGOXIN 0.125 MG TAB PO SCH (09:19)
[2016-12-18] MEDS: BENZONATATE 100 MG CAP PO SCH ×2 (09:19→21:06)
[2016-12-18] MEDS: SENOKOT S TAB PO SCH ×2 (09:19→21:05)
[2016-12-18] MEDS: AZITHROMYCIN 250 MG TAB PO SCH (09:20)
[2016-12-18] MEDS: POTASSIUM CHLORIDE 10 MEQ SR TABLET PO SCH ×2 (09:20→21:05)
[2016-12-18] MEDS: FLUTICASONE PROP 0.05% NASAL SPRAY 16 GM (FLONASE) SCH ×2 (09:22→21:06)
[2016-12-18] MEDS: CEFTAROLINE FOSAMIL 600 MG in D5W MINI-BAG PLUS 50 ML IV SCH ×2 (11:02→21:31)
[2016-12-18] MEDS: SODIUM CHLORIDE 0.9% INJ 10 ML SYR IV PRN ×2 (11:02→12:38)
[2016-12-18 12:00] VITALS: BP 118/86
--- NOTE | 2016-12-18 12:30 | IPN ---
DATE: 12/18/2016 The patient seen and examined at the bedside. Chart has been reviewed. This morning, the patient has no complaints of chest pain, pressure or tightness, shortness of breath or weakness. Ins and Outs: Input 1178 and output of 1625, negative 447. Current weight is 84.9 kg. Vitals: Temperature 98.6, pulse 81, respiratory rate 16, blood pressure 99/56, 99% on 2 liters nasal cannula. Generally, the patient is awake, alert, oriented times three, answering questions appropriately. Mild jugular venous distention. Diminished breath sounds with bilateral crackles. Heart: S1, S2, sinus rhythm. Abdomen is soft, nontender, nondistended. Positive bowel sounds. Previous hematoma noted. Extremities: 3+ pitting edema to sacrum with anasarca in bilateral upper and lower extremities. LABORATORY DATA: White count 8.9, hemoglobin 8.9, hematocrit 27, platelet count 159. Sodium 136, potassium 4.2, chloride 93, bicarbonate 37, BUN 46, creatinine 1.4, glucose of 143. MICROBIOLOGY: Two sets of blood cultures 12/16/2016 no growth after 48 hours. On 12/02/2016 Staphylococcus aureus resistant to erythromycin and penicillin G. ASSESSMENT AND PLAN: This is a 71-year-old male with history of chronic obstructive pulmonary disease (COPD), pulmonary hypertension, congestive heart failure (CHF), ischemic cardiomyopathy, type 2 diabetes, chronic kidney disease stage III, obstructive uropathy and neuropathy, benign prostatic hypertrophy (BPH), chronic venous stasis of lower extremities and morbid obesity, who presents with increasing shortness of breath and admitted for congestive heart failure (CHF) exacerbation. IMPRESSION: 1. CHF exacerbation, systolic and diastolic dysfunction, ejection fraction of 20 to 25%. CT shows large bilateral effusions with abdominal ascites from congested liver with abnormal liver function tests. Continue strict input and output, daily weights, fluid restriction. IV Lasix for diuresis. Monitor electrolytes and supplement as needed. 2. Left-sided abdominal wall hematoma secondary to heparin injections. Hemoglobin and hematocrit (H and H) appears to be stable. Holding aspirin and Plavix for now due to recent hematoma and blood loss requiring blood transfusion of two units. 3. Community-acquired pneumonia with right lower lobe infiltrate on x-ray. Sputum showing Stenotrophomonas. Day #6 on ceftriaxone and azithromycin. Transition to ceftaroline due to methicillin sensitive Staphylococcus aureus (MSSA) on blood culture. 4. MSSA bacteremia. Patient will need further evaluation in light of AICD and biventricular pacer to rule out endocarditis once patient has reached euvolemia. 5. Chronic kidney disease. Currently at baseline. Renally dose all medications. 6. Coronary artery disease, ischemic cardiomyopathy with automatic implantable cardioverter-defibrillator (AICD). Aspirin and Plavix withheld due to a recent abdominal wall hematoma. 7. Morbid obesity, complicating current medical issues. 8. Chronic obstructive pulmonary disease. No acute exacerbation. 9. Chronic constipation. Suppositories and Colace.
--- NOTE | 2016-12-18 12:50 | REP ---
Procedure: PICC line insertion with Kylah-June The procedure was performed under the direct supervision of Dr. Solano. The risks and benefits of the procedure were explained to the patient and informed consent was obtained. The right basilic vein was localized using ultrasound guidance. The skin was prepped and draped in a sterile fashion. 2% lidocaine was used as a local anesthetic. Using ultrasound guidance the basilic vein was cannulated and a 0.018 guidewire was inserted and advanced to the SVC using fluoroscopic guidance. The needle was removed and a 5.5 [place] dilator and peel-away sheath was inserted over the guide wire. A 5.5 [place] dual lumen catheter was cut to length of 37 cm. The dilator was removed and the catheter was inserted over the guide wire with the tip ending in the SVC. The peel-away sheath was removed and the catheter was flushed with heparinized saline as per Hospital protocol. The catheter was affixed to the skin and a sterile dressing was applied. The the patient tolerated the procedure well and there were no immediate complications. 0.5 minutes of fluoro time was utilized for this procedure. Reviewed by DAIANA Henderson 12/17/2016 05:14 PSigned by Robert Solano MD 12/18/2016 12:41 P
[2016-12-18] MEDS: FUROSEMIDE injection 250 MG in D5W 225 ML IV SCH (14:22)
[2016-12-18 16:00] VITALS: BP 104/58
[2016-12-18 19:19] VITALS: BP 104/66
[2016-12-18 20:38] LABS: CALCIUM LEVEL 8.2 MG/DL (8.8-10.2); CREATININE FOR GFR 1.54 MG/DL (0.70-1.30); GLOMERULAR FILTRATION RATE 47.4 (>42); POTASSIUM SERUM 4.4 MEQ/L (3.5-5.1)
[2016-12-18] MEDS: FINASTERIDE 5 MG TAB PO SCH (21:05)
[2016-12-18] MEDS: OMEPRAZOLE 20 MG CAP PO SCH (21:05)
[2016-12-18] MEDS: TAMSULOSIN 0.4 MG CAP PO SCH (21:05)
[2016-12-18 23:59] VITALS: BP 126/59
[2016-12-19] MEDS: IPRATROPIUM 0.5MG/ALBUTEROL 2.5MG INH SOL UD 3ML (DUONEB)(J7620) NEB SCH ×4 (01:34→20:00)
[2016-12-19 04:45] VITALS: BP 115/57
[2016-12-19] MEDS: SODIUM CHLORIDE 0.9% INJ 10 ML SYR IV SCH ×2 (05:02→17:03)
[2016-12-19 05:24] LABS: BASO % 0.3 % (0.0-1.0); EOS # 0.1 K/mm3 (0.0-0.50); EOS % 1.1 % (0.0-3.0); LARGE UNSTAINED CELL # 0.2 K/mm3 (0.0-0.4); LARGE UNSTAINED CELL % 2.4 % (0.0-4.0); LYMPH # 1.8 K/mm3 (1.5-4.5); LYMPH % 19.2 % (24.0-44.0); MEAN CORPUSCULAR HEMOGLOBIN 28.7 pg (27.0-33.0); MEAN CORPUSCULAR HGB CONC 31.6 g/dl (32.0-36.5); MEAN CORPUSCULAR VOLUME 90.9 fl (80.0-96.0); MONO # 0.6 K/mm3 (0.0-0.8); MONO % 7.6 % (0.0-5.0); NEUTROPHILS # 5.8 K/mm3 (1.8-7.7); NEUTROPHILS % 69.4 % (36.0-66.0); PLATELET COUNT, AUTOMATED 178 k/mm3 (150-450); RED CELL DISTRIBUTION WIDTH 16.2 % (11.5-14.5); WHITE BLOOD COUNT 8.3 K/mm3 (4.0-10.0)
[2016-12-19 05:57] LABS: ALBUMIN 2.7 GM/DL (3.2-5.2); ALBUMIN/GLOBULIN RATIO 0.93 (1.00-1.93); BILIRUBIN,TOTAL 1.7 MG/DL (0.2-1.0); CALCIUM LEVEL 8.4 MG/DL (8.8-10.2); CREATININE FOR GFR 1.42 MG/DL (0.70-1.30); MAGNESIUM LEVEL 2.1 MG/DL (1.8-2.4); PHOSPHORUS LEVEL 3.1 MG/DL (2.5-4.9); POTASSIUM SERUM 4.3 MEQ/L (3.5-5.1); TOTAL PROTEIN 5.6 GM/DL (6.4-8.2)
[2016-12-19 07:18] LABS: ERYTHROCYTE SEDIMENTATION RATE 56 mm/hr (0-20)
[2016-12-19] MEDS: HumaLOG INSULIN (NovoLOG) PER UNIT SC SCH ×4 (07:30→20:22)
[2016-12-19] MEDS: ADVAIR DISKUS 250/50 INH PWD INH SCH ×2 (07:40→19:55)
[2016-12-19 07:58] VITALS: BP 102/55
[2016-12-19 08:01] LABS: DIGOXIN LEVEL 2.7 NG/ML (0.5-2.0)
[2016-12-19] MEDS: DIGOXIN 0.125 MG TAB PO SCH (09:00)
[2016-12-19] MEDS: CEFTAROLINE FOSAMIL 600 MG in D5W MINI-BAG PLUS 50 ML IV SCH ×2 (09:16→22:17)
[2016-12-19] MEDS: DOCUSATE SODIUM 100 MG CAP PO SCH ×2 (09:17→20:19)
[2016-12-19] MEDS: BENZONATATE 100 MG CAP PO SCH ×2 (09:17→20:19)
[2016-12-19] MEDS: POTASSIUM CHLORIDE 10 MEQ SR TABLET PO SCH ×2 (09:17→20:21)
[2016-12-19] MEDS: SENOKOT S TAB PO SCH ×2 (09:17→20:20)
[2016-12-19] MEDS: RANOLAZINE 500 MG ER TAB PO SCH ×2 (09:17→20:27)
[2016-12-19] MEDS: PREGABALIN 100 MG CAP (LYRICA) PO SCH ×2 (09:17→20:21)
[2016-12-19] MEDS: AZITHROMYCIN 250 MG TAB PO SCH (09:17)
[2016-12-19] MEDS: FLUTICASONE PROP 0.05% NASAL SPRAY 16 GM (FLONASE) SCH ×2 (09:18→20:27)
[2016-12-19] MEDS: CARVedilol 3.125 MG TAB PO SCH (09:18)
[2016-12-19] MEDS: FUROSEMIDE injection 250 MG in D5W 225 ML IV SCH (10:26)
--- NOTE | 2016-12-19 10:57 | IPN ---
DATE: 12/19/2016 The patient seen and examined at the bedside. Chart has been reviewed. This morning, the patient has no complaints of chest pain, pressure or tightness, shortness of breath, nausea, vomiting, epigastric pain. No cough, fever or chills. Afebrile overnight. No issues on telemetry. Remains in sinus rhythm, ventricular rate of 77 to 83. Temperature 97.2, pulse 80, respiratory rate 18, blood pressure 102/55, 99% on 2 liters nasal cannula. Input 1420 and output 1375, positive 45. Current weight is 84.9 kg. Generally, awake, alert, oriented to person, place and time. Answering questions appropriately. No respiratory distress. No use of accessory muscles. Mild jugular venous distention. Diminished breath sounds. Bilateral crackles. Heart: S1, S2, sinus rhythm. No murmurs, rubs or gallops. Abdomen is soft, nontender, nondistended. Positive bowel sounds. Hematoma resolving. Extremities: 2+ pitting edema bilateral. White count 8.3, hemoglobin 9.5, hematocrit 29, platelet count 178. Sodium 136, potassium 4.3, chloride 92, bicarbonate 38, BUN 44, creatinine 1.4, glucose of 126. MICROBIOLOGY AND IMAGING STUDIES: Have been reviewed. ASSESSMENT AND PLAN: This is a 71-year-old male with history of chronic obstructive pulmonary disease (COPD), pulmonary hypertension, congestive heart failure (CHF), ischemic cardiomyopathy, type 2 diabetes, chronic kidney disease stage III, obstructive uropathy and neuropathy, benign prostatic hypertrophy (BPH), chronic venous stasis of lower extremities and morbid obesity who presents with increasing shortness of breath and admitted for congestive heart failure (CHF) exacerbation and found to have an infiltrate on the right lower lobe and treated for community acquired pneumonia and has developed methicillin-sensitive Staphylococcus aureus (MSSA) bacteremia. IMPRESSION: 1. CHF exacerbation, systolic and diastolic dysfunction, ejection fraction of 20 [address]%. [address] shows large bilateral effusions with abdominal ascites from congested liver with abnormal liver function tests. Continue with strict input and output , daily weights, fluid restriction, and IV Lasix drip for diuresis. Monitor electrolytes and supplement potassium and magnesium as needed. Due to no significant change for the past three days with net negative, will consult cardiology, Dr. Capone, for management of congestive heart failure. The patient is on no WALDEMAR inhibitor due to chronic kidney disease. Currently at baseline creatinine. Avoiding nephrotoxins and renal dosing all medications. 2. Abdominal wall hematoma. Patient had required two units of red blood cell transfusion. We have had to hold is aspirin and Plavix for now due to recent bleed. 3. Community-acquired pneumonia right lower lobe. The patient has completed ceftriaxone and azithromycin. The patient has MSSA on the blood culture. Consider transesophageal echo if negative findings. Once euvolemic, once negative findings, may discontinue antibiotics as he has completed a total of 14 days. 4. MSSA bacteremia. Patient has received ceftriaxone for community acquired pneumonia in the right lower lobe as well as azithomycin. There was change to Ceftaroline. Repeat blood cultures remain negative on 12/16/2016 and 2016. He remains afebrile with normal white count. Monitor C-reactive protein. Defer to cardiology regarding need for transesophageal echocardiogram. Consult Dr. Nirav Batista on Thursday when she is available. 5. History of coronary artery disease (CAD), ischemic cardiomyopathy, ejection fraction of 25%, automatic implantable cardioverter-defibrillator (AICD). Aspirin and Plavix held due to a abdominal wall hematoma. 6. Chronic kidney disease. Currently at baseline. Renally dose all medications. Avoid nephrotoxins. 7. Morbid obesity, complicating current medical issues. 8. Chronic obstructive pulmonary disease. No acute exacerbation. 9. Chronic constipation. On Colace. MTDD
[2016-12-19 11:32] VITALS: BP 118/57
[2016-12-19 16:00] VITALS: BP 102/57
[2016-12-19] MEDS: SODIUM CHLORIDE 0.9% INJ 10 ML SYR IV PRN (17:02)
[2016-12-19 19:04] LABS: CREATININE FOR GFR 1.51 MG/DL (0.70-1.30); GLOMERULAR FILTRATION RATE 48.5 (>42)
[2016-12-19 20:00] VITALS: BP 108/62
[2016-12-19] MEDS: TAMSULOSIN 0.4 MG CAP PO SCH (20:19)
[2016-12-19] MEDS: FINASTERIDE 5 MG TAB PO SCH (20:20)
[2016-12-19] MEDS: OMEPRAZOLE 20 MG CAP PO SCH (20:20)
[2016-12-19] MEDS: metOLazone 2.5 MG TAB PO SCH (22:16)
[2016-12-19 23:53] VITALS: BP 106/58
[2016-12-20] VITALS (7 sets, daily range): BP systolic 93–125; BP diastolic 50–69
[2016-12-20] MEDS: IPRATROPIUM 0.5MG/ALBUTEROL 2.5MG INH SOL UD 3ML (DUONEB)(J7620) NEB SCH ×4 (01:08→20:00)
[2016-12-20 05:40] LABS: BASO % 0.4 % (0.0-1.0); EOS # 0.1 K/mm3 (0.0-0.50); EOS % 1.2 % (0.0-3.0); LARGE UNSTAINED CELL # 0.2 K/mm3 (0.0-0.4); LARGE UNSTAINED CELL % 2.6 % (0.0-4.0); LYMPH # 1.6 K/mm3 (1.5-4.5); LYMPH % 20.7 % (24.0-44.0); MEAN CORPUSCULAR HEMOGLOBIN 29.8 pg (27.0-33.0); MEAN CORPUSCULAR HGB CONC 32.5 g/dl (32.0-36.5); MEAN CORPUSCULAR VOLUME 91.7 fl (80.0-96.0); MONO # 0.6 K/mm3 (0.0-0.8); MONO % 8.3 % (0.0-5.0); NEUTROPHILS # 5.2 K/mm3 (1.8-7.7); NEUTROPHILS % 66.8 % (36.0-66.0); PLATELET COUNT, AUTOMATED 182 k/mm3 (150-450); RED CELL DISTRIBUTION WIDTH 16.4 % (11.5-14.5); WHITE BLOOD COUNT 7.6 K/mm3 (4.0-10.0)
[2016-12-20 05:43] LABS: ALBUMIN 2.7 GM/DL (3.2-5.2); ALBUMIN/GLOBULIN RATIO 0.87 (1.00-1.93); BILIRUBIN,TOTAL 1.8 MG/DL (0.2-1.0); CALCIUM LEVEL 8.2 MG/DL (8.8-10.2); CREATININE FOR GFR 1.51 MG/DL (0.70-1.30); DIGOXIN LEVEL 2.3 NG/ML (0.5-2.0); GLOMERULAR FILTRATION RATE 48.5 (>42); POTASSIUM SERUM 4.2 MEQ/L (3.5-5.1); TOTAL PROTEIN 5.8 GM/DL (6.4-8.2)
[2016-12-20] MEDS: SODIUM CHLORIDE 0.9% INJ 10 ML SYR IV SCH ×2 (05:56→17:39)
[2016-12-20] MEDS: ADVAIR DISKUS 250/50 INH PWD INH SCH ×2 (07:14→20:41)
[2016-12-20] MEDS: HumaLOG INSULIN (NovoLOG) PER UNIT SC SCH ×4 (07:32→21:00)
[2016-12-20 08:01] LABS: ERYTHROCYTE SEDIMENTATION RATE 49 mm/hr (0-20)
--- NOTE | 2016-12-20 08:45 | REP ---
PA and lateral chest: Comparison is the portable chest of 12/17/2016. There is a large right pleural effusion. There is a smaller left pleural effusion. Sternotomy wires are again noted, many of which are fractured. Cardiac size is borderline enlarged. There is a pacemaker, unchanged. The kwan and mediastinum are unchanged and unremarkable. There is a right upper extremity PICC line with the tip terminating in the right atrium, not present previously. I suspect there is bilateral shoulder osteoarthritis. Signed by Sahil Tracy MD 12/20/2016 08:36 A
[2016-12-20] MEDS: POTASSIUM CHLORIDE 10 MEQ SR TABLET PO SCH ×2 (09:39→21:47)
[2016-12-20] MEDS: AZITHROMYCIN 250 MG TAB PO SCH (09:39)
[2016-12-20] MEDS: PREGABALIN 100 MG CAP (LYRICA) PO SCH ×2 (09:39→21:47)
[2016-12-20] MEDS: DOCUSATE SODIUM 100 MG CAP PO SCH ×2 (09:39→21:46)
[2016-12-20] MEDS: BENZONATATE 100 MG CAP PO SCH ×2 (09:39→21:46)
[2016-12-20] MEDS: RANOLAZINE 500 MG ER TAB PO SCH ×2 (09:39→21:47)
[2016-12-20] MEDS: FLUTICASONE PROP 0.05% NASAL SPRAY 16 GM (FLONASE) SCH ×2 (09:40→21:47)
[2016-12-20] MEDS: SENOKOT S TAB PO SCH ×2 (09:40→21:46)
[2016-12-20] MEDS: metOLazone 2.5 MG TAB PO SCH (09:40)
[2016-12-20] MEDS: CARVedilol 3.125 MG TAB PO SCH (09:40)
[2016-12-20] MEDS: CEFTAROLINE FOSAMIL 600 MG in D5W MINI-BAG PLUS 50 ML IV SCH ×2 (09:47→21:45)
[2016-12-20] MEDS: DIGOXIN 0.125 MG TAB PO SCH (09:54)
[2016-12-20] MEDS: FUROSEMIDE injection 250 MG in D5W 225 ML IV SCH (10:23)
--- NOTE | 2016-12-20 11:04 | IPN ---
DATE OF SERVICE: 12/20/2016 The patient seen and examined at the bedside. Chart has been reviewed. He denies any complaints of shortness of breath, chest pain, pressure or tightness, lightheadedness, dizziness still with occasional nonproductive cough of white sputum. Afebrile overnight. No chills. Telemetry remains sinus rhythm, ventricular rate of 76 to 80. Vitals: Temperature 97.6, pulse 77, respiratory rate 19, blood pressure 120/67, 98% on 2 liters nasal cannula. Generally, patient is awake, alert, oriented times three. Answering questions appropriately. No cyanosis. Mild jugular venous distention. Lungs diminished. Fine crackles at the right base. Heart S1, S2, sinus rhythm. Automatic implantable cardioverter-defibrillator (AICD) noted left anterior chest. Abdomen ecchymotic area noted and stable. Positive bowel sounds. No tenderness. Extremities: Positive pitting edema. LAB DATA: White count 7.6, hemoglobin 9.8, hematocrit 30, platelet count 182, sed rate 49, sodium 137, potassium 4.2, chloride 93, bicarbonate 40, BUN 42, creatinine 1.5, glucose of 127, total bilirubin 1.8, AST 15, ALT 8, alkaline phosphatase 147, C-reactive protein 2.64. Two sets of blood cultures on 12/19 no gross, methicillin-resistant Staphylococcus aureus (MRSA) screen is negative. Sputum culture showed Stenotrophomonas. 12/20 chest x-ray bilateral large right pleural effusions, small left pleural effusions, sternotomy wires, pacemaker, right upper extremity PICC line. ASSESSMENT AND PLAN: This is a 71-year-old male with history of ischemic cardiomyopathy, chronic obstructive pulmonary artery disease (COPD), pulmonary hypertension, type 2 diabetes, chronic kidneys disease stage III, obstructive uropathy, neuropathy, benign prostatic hyperplasia (BPH), chronic venous stasis, morbid obesity who presents with increasing shortness of breath admitted for congestive heart failure (CHF) systolic dysfunction found to have infiltrative right lower lobe and pleural effusions treated with community acquired pneumonia and ceftriaxone and azithromycin, developed methicillin-sensitive Staphylococcus aureus (MSSA) bacteremia with negative cultures times four sets. IMPRESSION: 1. Congestive heart failure (CHF) exacerbation, systolic and diastolic dysfunction, ejection fraction of [address] of the chest continues to have right sided pleural effusion which is large with abdominal ascites from congested liver with abnormal liver function tests. Continued on Lasix drip. Strict intake and output, daily weights, and fluid restriction. Monitor electrolytes and supplement potassium and magnesium as needed. Dr. Capone has been consulted for management of CHF. No WALDEMAR inhibitor due to renal failure. Currently at baseline creatinine. Avoiding nephrotoxins and renal dosing all medications. Patient has been given Zaroxolyn with improved diuresis overnight, currently net negative from midnight at 1 liter out. Current weight is 82 kilograms. 2. Methicillin-sensitive Staphylococcus aureus (MSSA) bacteremia. Patient had been on IV ceftriaxone, currently on Ceftaroline with normal white count. No fevers. Two sets of blood cultures both on 12/19 as well as 12/16 have been negative. Sed rate and CRP are being monitored. On Thursday if Dr. Nirav Batista is available we will discuss continuation of antibiotics. 3. Elevated digoxin level. At this time digoxin has been held. No signs of dig toxicity. 4. Abdominal wall hematoma. Required two units of red blood cell transfusions secondary to aspirin, Plavix, and Heparin injections. Hemoglobin and hematocrit remain stable. No requirement for red blood cell transfusion. 5. Right lower lobe community-acquired pneumonia. Completed ceftriaxone and azithromycin, currently on Ceftaroline. 6. History of coronary artery disease (CAD), ischemic cardiomyopathy, ejection fraction of 25%, automatic implantable cardioverter-defibrillator (AICD). Aspirin and Plavix held due to a abdominal wall hematoma. Will need to resume as soon as hematoma appears to be stabilizing. 7. Chronic kidney disease, stage III. Currently at baseline. 8. Morbid obesity, complicating current medical issues. 9. Chronic obstructive pulmonary disease. No acute exacerbation. 10. Chronic constipation. On Colace.
[2016-12-20 18:29] LABS: CALCIUM LEVEL 8.3 MG/DL (8.8-10.2); CREATININE FOR GFR 1.61 MG/DL (0.70-1.30); POTASSIUM SERUM 4.1 MEQ/L (3.5-5.1)
[2016-12-20] MEDS: TAMSULOSIN 0.4 MG CAP PO SCH (21:46)
[2016-12-20] MEDS: FINASTERIDE 5 MG TAB PO SCH (21:46)
[2016-12-20] MEDS: OMEPRAZOLE 20 MG CAP PO SCH (21:46)
[2016-12-20] MEDS: SODIUM CHLORIDE 0.9% INJ 10 ML SYR IV PRN (23:08)
[2016-12-21] MEDS: IPRATROPIUM 0.5MG/ALBUTEROL 2.5MG INH SOL UD 3ML (DUONEB)(J7620) NEB SCH ×4 (01:54→20:00)
--- NOTE | 2016-12-21 02:06 | CR ---
DATE OF CONSULTATION: 12/19/2016 HISTORY OF PRESENT ILLNESS: 71-year-old male with a history of severe ischemic cardiomyopathy who was admitted on 11/28/2016, because of increasing shortness of breath, increasing pedal edema, orthopnea. He is being treated for decompensated congestive heart failure, but he has not been responding and cardiology input was requested. When I saw Mr. Pierce Morejon, he was sitting in a chair in no acute distress at rest and he complains of shortness of breath with minimal activities, orthopnea, and he stated that his pedal edema has been getting worse. He thinks he has not been quite compliant with his diet even in the hospital. He denies any bleeding. He denies any fever or chills. He has no palpitations. He has a cough, but denies any hemoptysis. While in the hospital, he was found to be positive for methicillin-resistant Staphylococcus aureus (MRSA). He has a past medical history positive for history of severe coronary artery disease with myocardial infarction and coronary artery bypass graft (CABG) in the past, severe left ventricular systolic dysfunction due to ischemic cardiomyopathy, hypertension, hyperlipidemia, diabetes mellitus, chronic kidney disease, chronic venous stasis of the lower extremities. There is no history of CVA, atrial fibrillation, sudden cardiac , thyroid disorders. PAST SURGICAL HISTORY: Positive for CABG, automatic implantable cardioverter-defibrillator (AICD) implantation. FAMILY HISTORY: Noncontributory. 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 He denies any smoking or ethyl alcohol (EtOH) abuse. ALLERGIES: No known drug allergies. ADVANCED DIRECTIVES: Patient has a DO NOT RESUSCITATE order. CURRENT MEDICATIONS: - carvedilol 3.125 mg by mouth daily - furosemide drip - ceftaroline 600 mg intravenously (IV) every 12 hours - potassium chloride (KCl) 20 mg by mouth twice a day - Lyrica 200 mg by mouth twice a day - Zithromax 400 mg by mouth daily - milk of magnesia 30 mL by mouth daily as needed for constipation - Fleet enema one daily as needed for constipation - Zofran 4 mg IV every 6 hours as needed for nausea - Mylanta 30 mL every 4 hours as needed for indigestion - Tessalon Perles - Tylenol 650 mg every 4 hours as needed for pain or fever - Colace 100 mg by mouth twice a day - Advair Diskus 250/50 one puff twice a day - MiraLAX one packet daily as needed for constipation - Dulcolax suppository 10 mg daily as needed for constipation - digoxin 0.125 mg by mouth daily - nystatin powder applied to the groin twice a day and as needed - insulin coverage - finasteride 5 mg by mouth nightly - Flonase nasal spray 0.05% twice a day - omeprazole 40 mg by mouth nightly - ranolazine 400 mg by mouth twice a day - senna one tablet by mouth twice a day - tamsulosin 0.4 mg by mouth nightly - DuoNeb one nebulizer every 2 hours as needed for shortness of breath and wheezing - lidocaine ointment applied daily as needed for neuropathy - also on D50 - glucose tablets - glucagon as needed for hypoglycemia PHYSICAL EXAMINATION: Patient is alert and oriented, in no acute distress at rest, but appeared to be short of breath. He is kind of cachexic when compared to the last time I have seen him. His vital signs revealed a blood pressure of 108/62 with a pulse of 78, respirations 18, and his maximum temperature is 97.7 degrees Fahrenheit with an oxygen saturation of 99% on 2 liters nasal cannula. He has a negative fluid balance of plus 45 mL for 12/18/2016. Examination of the head, ears, eyes, nose and throat: Atraumatic. Neck is supple with extended jugular. The lungs reveal decreased breath sounds at the bases, but no wheezing. The heart examination revealed normal S1, S2 without gallops. The point of maximal impulse (PMI) is not displaced. There is no rub. Abdomen is soft, obese and nontender. Extremities reveal +3 bilateral lower extremity edema. Neurological examination grossly is negative for focal deficit. LABORATORIES: CBC revealed a WBC of 8.3, hemoglobin 9.4, hematocrit 29.6, and platelets 178,000. BMP revealed a sodium of 137, potassium 4.0, chloride 93, CO2 40, BUN 42, creatinine 1.5, GFR 48.5, fasting glucose 179, calcium 8.0. Serum digoxin on 12/19/2016, was 2.7. Chest x-ray on 12/17/2016, revealed cardiomegaly, right lower lobe effusion. EKG on 12/08/2016, revealed sinus rhythm with first-degree AV block, low voltage QRS complexes in the limb leads, mild IVCD, and nonspecific ST-T abnormalities. Echocardiogram on 11/29/2016, revealed LVEF estimated at 20-25% with regional wall motion abnormalities consistent with ischemic cardiomyopathy. There was moderate mitral regurgitation and mild tricuspid regurgitation, mild pulmonary hypertension. A restrictive mitral pattern was noted consistent with a poor cardiac prognostic. IMPRESSION: Decompensated congestive heart failure, acute on chronic secondary to severe ischemic cardiomyopathy. Patient has not been responding to the current diuretic and I will give him a trial of metolazone over the weekend and if he does not respond, we shall consider adding IV dobutamine. Will monitor closely his BUN, creatinine, and serum potassium. We have discussed about the importance of being compliant with his medication and diet and he has manifested the desire to do that. He has a long history of noncompliance. His serum digoxin is elevated and it will be changed to one tablet every other day. It was a pleasure to participate in the care Mr. Pierce Morejon for his underlying cardiac condition. I will continue to monitor him along with you as needed while in the hospital. Case was discussed with his hospitalist. LOGAN
[2016-12-21 04:13] VITALS: BP 137/81
[2016-12-21] MEDS: SODIUM CHLORIDE 0.9% INJ 10 ML SYR IV SCH ×2 (05:02→18:30)
[2016-12-21 05:31] LABS: BASO % 0.2 % (0.0-1.0); EOS # 0.1 K/mm3 (0.0-0.50); EOS % 1.3 % (0.0-3.0); LARGE UNSTAINED CELL # 0.2 K/mm3 (0.0-0.4); LARGE UNSTAINED CELL % 2.6 % (0.0-4.0); LYMPH # 1.3 K/mm3 (1.5-4.5); LYMPH % 20.2 % (24.0-44.0); MEAN CORPUSCULAR HEMOGLOBIN 30.5 pg (27.0-33.0); MEAN CORPUSCULAR VOLUME 92.3 fl (80.0-96.0); MONO # 0.6 K/mm3 (0.0-0.8); MONO % 8.4 % (0.0-5.0); NEUTROPHILS # 4.4 K/mm3 (1.8-7.7); NEUTROPHILS % 67.4 % (36.0-66.0); PLATELET COUNT, AUTOMATED 157 k/mm3 (150-450); RED CELL DISTRIBUTION WIDTH 16.3 % (11.5-14.5); WHITE BLOOD COUNT 6.6 K/mm3 (4.0-10.0)
[2016-12-21 05:46] LABS: ALBUMIN 2.7 GM/DL (3.2-5.2); ALBUMIN/GLOBULIN RATIO 0.93 (1.00-1.93); BILIRUBIN,TOTAL 1.7 MG/DL (0.2-1.0); CALCIUM LEVEL 8.1 MG/DL (8.8-10.2); CREATININE FOR GFR 1.49 MG/DL (0.70-1.30); GLOMERULAR FILTRATION RATE 49.2 (>42); MAGNESIUM LEVEL 1.9 MG/DL (1.8-2.4); TOTAL PROTEIN 5.6 GM/DL (6.4-8.2)
[2016-12-21] MEDS: ADVAIR DISKUS 250/50 INH PWD INH SCH ×2 (07:19→19:52)
[2016-12-21] MEDS: HumaLOG INSULIN (NovoLOG) PER UNIT SC SCH ×4 (07:30→21:22)
[2016-12-21 07:31] LABS: DIGOXIN LEVEL 2.2 NG/ML (0.5-2.0)
[2016-12-21 07:47] LABS: ERYTHROCYTE SEDIMENTATION RATE 124 mm/hr (0-20)
[2016-12-21 08:00] VITALS: BP 117/58
[2016-12-21] MEDS: DOCUSATE SODIUM 100 MG CAP PO SCH ×2 (08:32→21:43)
[2016-12-21] MEDS: SENOKOT S TAB PO SCH ×2 (08:32→21:43)
[2016-12-21] MEDS: PREGABALIN 100 MG CAP (LYRICA) PO SCH ×2 (08:32→21:42)
[2016-12-21] MEDS: POTASSIUM CHLORIDE 10 MEQ SR TABLET PO SCH ×2 (08:32→21:42)
[2016-12-21] MEDS: RANOLAZINE 500 MG ER TAB PO SCH ×2 (08:33→21:42)
[2016-12-21] MEDS: metOLazone 2.5 MG TAB PO SCH (08:33)
[2016-12-21] MEDS: CARVedilol 3.125 MG TAB PO SCH (08:34)
[2016-12-21] MEDS: FLUTICASONE PROP 0.05% NASAL SPRAY 16 GM (FLONASE) SCH ×2 (08:35→21:43)
--- NOTE | 2016-12-21 09:14 | IPN ---
DATE: 12/21/2016 The patient seen and examined at the bedside. Chart has been reviewed. The patient has been afebrile. No complaints of chills. He still has a productive cough of white sputum. No chest pain, pressure or tightness, dizziness or lightheadedness. CURRENT MEDICATIONS: - digoxin - Zaroxolyn - Coreg - heparin via peripherally inserted central catheter (PICC) line - Lasix drip - ceftaroline - potassium - pregabalin - azithromycin - magnesium hydroxide - Fleet enema - Zofran as needed - Mylanta - Tessalon Perles - Tylenol - Colace - Advair - MiraLAX - Dulcolax - nystatin - Lispro - Proscar - Flonase - Prilosec - Ranexa - Senokot - DuoNeb - Flomax - Glucagon as needed VITAL SIGNS: Temperature 97.5, pulse 67, respiratory rate 18, blood pressure 137/81, 95% on 2 liters nasal cannula. Input and output: Input 1065 and output 4075, negative 3 liters. Current weight is 80.9 kg. GENERAL: Awake, alert, oriented times three. Answering questions appropriately. Mild jugular venous distention. No cervical lymphadenopathy or thyromegaly. Input 1065, output 4075, negative 3010. Weight is 80.9 kg. LUNGS: Diminished. Fine expiratory wheezing. HEART: S1, S2, sinus rhythm. ABDOMEN: Soft, nontender, nondistended. EXTREMITIES: Decreased edema. LAB DATA: White count 6.6, hemoglobin 10, hematocrit 30, platelet count 157, sed rate 124. C-reactive protein 1.83, sodium 137, potassium 4, chloride 91, bicarbonate 40, BUN 42, creatinine 1.49, glucose of 145. ASSESSMENT AND PLAN: 71-year-old male with a history of ischemic cardiomyopathy, chronic obstructive pulmonary artery disease (COPD), pulmonary hypertension, type 2 diabetes, chronic kidneys disease stage III, obstructive uropathy, neuropathy, benign prostatic hyperplasia (BPH), chronic venous stasis, morbid obesity who presents with shortness of breath admitted for congestive heart failure (CHF) systolic dysfunction found to have infiltrative right lower lobe and pleural effusions treated with community-acquired pneumonia and ceftriaxone and azithromycin, was found to have methicillin-sensitive Staphylococcus aureus (MSSA) bacteremia with negative cultures times six sets. IMPRESSION: 1. Congestive heart failure (CHF) exacerbation, acute systolic and diastolic dysfunction, ejection fraction of [address] of the chest continues to have right sided pleural effusion, which is large with abdominal ascites from congested liver with abnormal liver function tests. The patient is currently on Lasix drip. Strict intake and output, daily weights, and fluid restriction. Significant improvement with the addition of Zaroxolyn, currently net negative for the past two days with decreasing weight. Monitor electrolytes and supplement potassium and magnesium as needed. Dr. Capone has been consulted for management of CHF. No WALDEMAR inhibitor due to renal failure. Currently at baseline creatinine. Avoiding nephrotoxins and renal dosing all medications. 2. Methicillin-sensitive Staphylococcus aureus (MSSA) bacteremia. Patient has been on IV ceftriaxone and azithromycin for right sided pneumonia. 3. Right lower lobe pneumonia, currently on Ceftaroline with normal white count however with increasing sedimentation rate. No fevers. Two sets of blood cultures on 12/19 and 12/16 have been negative. Sed rate and CRP are being monitored. On Thursday, if Dr. Nirav Batista is available, we will discuss need for transesophageal echocardiogram once the patient is euvolemic and off the Lasix drip. 3. Elevated digoxin level. Digoxin is currently every hourly. No signs of dig toxicity. 4. Abdominal wall hematoma. Required 2 units of red blood cell transfusions secondary to aspirin, Plavix, and heparin injections. Hemoglobin and hematocrit remain stable. No requirement for repeat red blood cell transfusion. 5. Right lower lobe community-acquired pneumonia. Completed ceftriaxone and azithromycin, currently on ceftaroline. 6. History of coronary artery disease (CAD), ischemic cardiomyopathy, ejection fraction of 25%, automatic implantable cardioverter-defibrillator (AICD). Aspirin and Plavix held due to abdominal wall hematoma. We will need to resume. Hematoma appears to be stabilizing. Concerns for possible endocarditis and infection of the leads with methicillin sensitive Staphylococcus aureus (MSSA) bacteremia despite negative blood cultures.
[2016-12-21] MEDS: guaiFENesin ER 600 MG TAB PO SCH ×2 (10:30→21:43)
[2016-12-21] MEDS: FUROSEMIDE injection 250 MG in D5W 225 ML IV SCH (10:31)
[2016-12-21] MEDS: CEFTAROLINE FOSAMIL 600 MG in D5W MINI-BAG PLUS 50 ML IV SCH ×2 (10:41→21:44)
[2016-12-21 12:00] VITALS: BP 115/60
[2016-12-21 16:00] VITALS: BP 126/52
[2016-12-21 19:12] LABS: CALCIUM LEVEL 8.4 MG/DL (8.8-10.2); CREATININE FOR GFR 1.75 MG/DL (0.70-1.30); GLOMERULAR FILTRATION RATE 40.9 (>42)
[2016-12-21 19:34] VITALS: BP 112/57
[2016-12-21] MEDS: OMEPRAZOLE 20 MG CAP PO SCH (21:42)
[2016-12-21] MEDS: FINASTERIDE 5 MG TAB PO SCH (21:43)
[2016-12-21] MEDS: TAMSULOSIN 0.4 MG CAP PO SCH (21:43)
[2016-12-21 23:40] VITALS: BP 117/67
[2016-12-22] MEDS: IPRATROPIUM 0.5MG/ALBUTEROL 2.5MG INH SOL UD 3ML (DUONEB)(J7620) NEB SCH ×4 (01:55→20:12)
[2016-12-22 03:26] VITALS: BP 110/62
[2016-12-22] MEDS: SODIUM CHLORIDE 0.9% INJ 10 ML SYR IV SCH ×2 (05:02→18:40)
[2016-12-22 05:34] LABS: CALCIUM LEVEL 8.3 MG/DL (8.8-10.2); CREATININE FOR GFR 1.68 MG/DL (0.70-1.30); DIGOXIN LEVEL 1.7 NG/ML (0.5-2.0); GLOMERULAR FILTRATION RATE 42.9 (>42); POTASSIUM SERUM 3.9 MEQ/L (3.5-5.1)
[2016-12-22] MEDS: HumaLOG INSULIN (NovoLOG) PER UNIT SC SCH ×4 (07:30→21:35)
[2016-12-22] MEDS: ADVAIR DISKUS 250/50 INH PWD INH SCH ×2 (07:57→20:10)
[2016-12-22 08:00] VITALS: BP 129/66
[2016-12-22] MEDS: FLUTICASONE PROP 0.05% NASAL SPRAY 16 GM (FLONASE) SCH ×2 (09:08→22:06)
[2016-12-22] MEDS: PREGABALIN 100 MG CAP (LYRICA) PO SCH ×2 (09:09→21:35)
[2016-12-22] MEDS: POTASSIUM CHLORIDE 10 MEQ SR TABLET PO SCH ×2 (09:09→22:05)
[2016-12-22] MEDS: DOCUSATE SODIUM 100 MG CAP PO SCH (09:09)
[2016-12-22] MEDS: CARVedilol 3.125 MG TAB PO SCH (09:10)
[2016-12-22] MEDS: guaiFENesin ER 600 MG TAB PO SCH ×2 (09:10→22:05)
[2016-12-22] MEDS: metOLazone 2.5 MG TAB PO SCH (09:10)
[2016-12-22] MEDS: RANOLAZINE 500 MG ER TAB PO SCH ×2 (09:10→22:04)
[2016-12-22] MEDS: SENOKOT S TAB PO SCH ×2 (09:10→22:05)
[2016-12-22] MEDS: DIGOXIN 0.125 MG TAB PO SCH (09:11)
--- NOTE | 2016-12-22 09:49 | IPN ---
DATE: 12/22/2016 The patient seen and examined at the bedside. Chart has been reviewed. He has no new complaints this morning. Denies chest pain, pressure, tightness. His shortness of breath has improved. No fever or chills. Still with productive cough. No dysuria, urgency, frequency. No other issues per nursing overnight. Telemetry shows sinus rhythm. VITAL SIGNS: Temperature 98, pulse 91, respiratory rate 18, blood pressure 129/66, 90% on room air. Input and output: Input 1880 and output 4800, negative 2920. Current weight is 80.9 kg yesterday and 79.3 today. GENERAL: Awake, alert, oriented times three. Answering questions appropriately. Mild jugular venous distention. No thyromegaly. Moist mucous membranes. No cervical lymphadenopathy. LUNGS: Diminished breath sounds. No wheezing. Fine crackles at the bases. HEART: S1, S2, sinus rhythm. ABDOMEN: Soft, nontender, nondistended. Positive bowel sounds. Obese abdomen. No rebound, guarding or hepatosplenomegaly. EXTREMITIES: 3+ pitting edema to the sacrum, unchanged from previous. LAB DATA: White count 6.6, hemoglobin 10, hematocrit 30, platelet count 157. Sodium 136, potassium 3.9, chloride 90, bicarbonate 42, BUN 42, creatinine 1.68, glucose of 128. Microbiology: 12/02/2016 methicillin sensitive Staphylococcus aureus (MSSA). 12/03/2016 blood culture with no growth. 12/14/2016 sputum culture with Stenotrophomonas. Respiratory panel from 12/14/2016 negative. Two sets of blood cultures on 12/16/2016 negative. 12/19/2016 to sets of blood cultures negative. Sputum culture 12/21/2016 pending methicillin resistant Staphylococcus aureus (MRSA) screen, negative. IMAGING STUDIES: Chest x-ray 12/20/2016 bilateral shoulder arthritis, right peripherally inserted central catheter (PICC) line in the right atrium, pacemaker, sternotomy wires. Large right pleural effusion, small left pleural effusion. Chest CT on 11/28/2016 showed large bilateral effusions with lower lobe infiltrates, greater on the right. ASSESSMENT AND PLAN: This is a 71-year-old male with a history of ischemic cardiomyopathy, ejection fraction of 20 to 25%, chronic obstructive pulmonary artery disease (COPD), pulmonary hypertension, type 2 diabetes, chronic kidneys disease stage III, obstructive uropathy, neuropathy, benign prostatic hyperplasia (BPH), chronic venous stasis, morbid obesity who presented to the emergency room with shortness of breath and admitted for congestive heart failure (CHF) systolic dysfunction found to have infiltrates in the right lower lobe and pleural effusions, treated with community-acquired pneumonia and ceftriaxone and azithromycin. Blood culture grew out methicillin sensitive Staphylococcus aureus (MSSA) with negative repeat cultures times six bottles. Afebrile with no white count. CURRENT ISSUES: 1. Congestive heart failure (CHF) exacerbation, acute systolic and diastolic dysfunction, ejection fraction of 20 to 25%. Chest x-ray continues to show a large right pleural effusion. CT of the chest on admission showed bilateral effusions with abdominal ascites. Abnormal liver function tests. Diuresing. Improved with Zaroxolyn. Currently on strict input and output, daily weights and continue with the fluid restriction at this time. 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 Capone is managing his current issues. Avoid nephrotoxins. Renally dose all medications. 2. MSSA bacteremia. The patient has been on IV ceftriaxone for pneumonia and azithromycin. Currently on ceftaroline. Repeat cultures are negative. Sedimentation rate and C-reactive protein are being monitored. Dr. Nirav Batista will be consulted to decide to whether a transesophageal echocardiogram is required in light of his pacemaker, as well as his AICD to prevent further infection. He has remained afebrile. No white count. 3. Right lower lobe pneumonia. The patient has completed a full course of ceftriaxone and azithromycin. Currently on ceftaroline with monitoring of sedimentation rate and C-reactive protein. No fevers. Repeat blood cultures have been negative. Dr. Nirav Batista has been consulted today to decide on whether a transesophageal echocardiogram is required, as the patient has a defibrillator; however, blood cultures have remained negative for the past three sets. 4. Elevated digoxin level. Currently no signs of digoxin toxicity. 4. Abdominal wall hematoma. The patient has required 2 units of red blood cell transfusions secondary to aspirin, Plavix, and heparin injections. Hemoglobin and hematocrit remain stable. No requirement for repeat red blood cell transfusion. 5. History of coronary artery disease, ischemic cardiomyopathy, ejection fraction of 25%. AICD and pacer, single lead. Aspiring and Plavix have been held due to abdominal wall hematoma. Hematoma appears to be stabilizing, hemoglobin is stable. No acute requirement for blood cell transfusion. Due to MSSA bacteremia detected on 12/02/2016, we will defer to Dr. Batista whether workup for endocarditis is required and for transesophageal echo once the patient is euvolemic. LOGAN
[2016-12-22] MEDS: CEFTAROLINE FOSAMIL 600 MG in D5W MINI-BAG PLUS 50 ML IV SCH ×2 (10:09→22:02)
[2016-12-22] MEDS: SODIUM CHLORIDE 0.9% INJ 10 ML SYR IV PRN ×3 (10:10→23:08)
[2016-12-22] MEDS: FUROSEMIDE injection 250 MG in D5W 225 ML IV SCH (10:10)
[2016-12-22 12:00] VITALS: BP 103/55
[2016-12-22 16:00] VITALS: BP 104/61
[2016-12-22 20:00] VITALS: BP 117/66
[2016-12-22] MEDS: TAMSULOSIN 0.4 MG CAP PO SCH (22:04)
[2016-12-22] MEDS: FINASTERIDE 5 MG TAB PO SCH (22:06)
[2016-12-22] MEDS: OMEPRAZOLE 20 MG CAP PO SCH (22:06)
[2016-12-22] MEDS: NYSTATIN 100,000 UNITS/GM TOPICAL PWD 15 GM TOP PRN (22:08)
--- NOTE | 2016-12-22 22:50 | CR ---
DATE OF CONSULTATION: 12/22/2016 Asked to consult by Dr. Mallory for evaluation of methicillin-sensitive Staphylococcus aureus (MSSA) bacteremia and possible need for transesophageal echocardiogram. HISTORY OF PRESENT ILLNESS Mr. Morejon is a pleasant, morbidly obese gentleman who is 71 years old. Presented to the emergency room on November 28 complaining of increasing shortness of breath of 1-week duration associated with dyspnea on exertion, orthopnea, and lower extremity edema. The patient denied having any chest pain, fever, chills, rigors, productive cough. He did have a nonproductive cough and was having significant shortness of breath with minimal exertion. He had no nausea, vomiting or diarrhea. No hematochezia or melena. The patient was not febrile when he came in and was treated initially for congestive heart failure. He was admitted to the progressive care unit (PCU). He started on intravenous (IV) Lasix. His fluid intake was restricted. The patient had an echocardiogram that was done on November 29, which showed severe global ventricular systolic dysfunction with regional motion abnormalities, consistent with coronary artery disease, left ventricular diastolic dysfunction, mild tricuspid regurgitation, mild pulmonary hypertension, automatic implantable cardioverter-defibrillator (AICD) in place, borderline left atrial enlargement. His ejection fraction (EF) is between 20-25%. The patient was afebrile for 5 days, and on December 02 he spiked a temperature up to 101.8. From review of the nurses record, patient had an IV which was erythematous, indurated, and the patient removed it himself. Blood cultures were drawn after the patient spiked a temperature. He had a two sets on December 02 that were positive for MSSA half hour apart. Respiratory panel was done that was negative. Blood cultures, two sets, were repeated on December 03 and were no growth. The patient was started on IV antibiotics for community-acquired pneumonia on December 02 with ceftriaxone and Zithromax, which he received from December 02 until December 17. On December 17 he was switched to ceftaroline, which was continued until December 22. The patient received a total course of Zithromax of 19 days. Repeat sputum culture was done on December 14, which had few Stenotrophomonas, moderate white cells. Another respiratory panel was done on December 14. On December 16 two sets of blood cultures were negative. Methicillin-resistant Staphylococcus aureus (MRSA) screen was negative. December 19 blood cultures were negative times two sets, and December 22 two more sets of blood cultures were drawn. The patient has been afebrile since December 08. PAST MEDICAL HISTORY: 1. Congestive heart failure. 2. Coronary artery disease status post coronary artery bypass graft (CABG). 3. Severe left ventricular systolic function due to ischemic cardiomyopathy. 4. Hypertension. 5. Hyperlipidemia. 6. Diabetes. 7. Chronic kidney disease. 8. Chronic venous stasis. No previous history of cerebrovascular accident (CVA) or atrial fibrillation. PAST SURGICAL HISTORY: 1. CABG. 2. Implantable cardioverter defibrillator (AICD) about 4 or 5 years ago. SOCIAL HISTORY: Lives alone. 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 He denies any smoking or alcohol abuse. ALLERGIES: No known drug allergies. He has a DO NOT RESUSCITATE order. MEDICATIONS: - Coreg 3.125 mg by mouth twice a day - aspirin 81 mg by mouth at bedtime - Heparin has been on hold. - Advair one puff inhaled twice a day - albuterol/Atrovent nebulizers - tamsulosin 0.4 mg by mouth at bedtime - Flonase one spray twice a day - digoxin 0.125 mg by mouth every 48 hours - Humalog as needed - furosemide 250 mg intravenous (IV) drip, started on December 17 - lidocaine ointment topically for neuropathy - Lyrica 200 mg by mouth twice a day - Micro-K 20 mEq by mouth twice a day - milk of magnesia 30 mL by mouth as needed daily - MiraLax one packet as needed - Mucinex 1200 mg by mouth twice a day - nystatin as needed - omeprazole 40 mg by mouth at bedtime - Proscar 5 mg by mouth at bedtime - Ranexa 500 mg by mouth twice a day - ceftaroline 600 mg intravenous (IV) every 12 hours, currently day #6 - Tylenol as needed - Zaroxolyn 2.5 mg by mouth daily, started on November - Zofran as needed ALLERGIES: No known drug allergies. LABORATORY DATA: White count on admission was 10. White count spiked on December 09 to 13.7. On December 14 was 14.8, and his white count has been normal since December 18. Currently 6.6, hemoglobin 10.1, hematocrit 30.5, platelets 157, 67% neutrophils, 20% lymphocytes, 8% monocytes. ESR 124. Sodium 136, potassium 3.9, chloride 90, bicarbonate 42, BUN 42, creatinine 1.6, glucose 128, calcium 8.3, CRP 1.52, which is down from 8.8 on December 04. Blood cultures two sets were positive for MSSA on December 02, but all cultures were negative on December 03, on December 16, December 19, and two more were drawn on December 22. CT of the abdomen and pelvis was done on December 08, which showed large mixed attenuation, hyperdense lesion in left anterior abdominal wall, consistent with a very large hematoma. Large bilateral pleural effusion and atelectasis. Diffuse anasarca. Moderate amount of ascites. No obstructive or inflammatory bowel disease. Sigmoid diverticulosis. No hydronephrosis. Chest x-ray done on admission showed bilateral large effusion and atelectasis/infiltrate. On December 20, chest x-ray was done, two-view posterior-anterior (PA) and lateral, showing a large right pleural effusion, a smaller left pleural effusion, pacemaker, right upper extremity peripherally inserted central catheter (PICC) line. PHYSICAL EXAMINATION: He is a pleasant elderly gentleman, sitting in a chair in no acute distress. Temperature is 97.5, pulse 79, respirations 18, blood pressure 104/61, oxygen 92% on 2 liters nasal cannula, 89% on room air. HEART: Normal S1, S2, distant without gallops. Point of maximal impulse (PMI) is not displaced. No rubs. LUNGS: Decreased breath sounds at the bases but no wheezing or crackles. NECK: Supple with jugular venous distention (JVD) . Oropharynx is clear with upper and lower dentures. ABDOMEN: Soft, nontender, morbidly obese with ecchymosis all in the suprapubic area, extending into the left flank. EXTREMITIES: With +3 pitting edema bilaterally. A few scabs on his knees. NEUROLOGIC: Intact. GENITOURINARY: Normal. He has a Davis catheter. IMPRESSION: This is a 71-year-old gentleman with a history of ischemic cardiomyopathy, severe congestive heart failure, ejection fraction of 20-25%, who has been here for the past 25 days, admitted with congestive heart failure. The patient never had a fever or white count until December 02, when it was noted by nursing that he had an IV site that was erythematous, indurated that the patient removed himself, associated with a fever. Blood cultures that same day were ordered and were positive for methicillin-sensitive Staphylococcus aureus (MSSA), which was probably related to an infected peripheral IV in his right hand, as documented by nursing. The patient was treated with ceftriaxone from December 02 to December 17, with Zithromax for probable community-acquired pneumonia, even though the patient had positive blood cultures MSSA. Then he was switched to IV ceftaroline with no documentation of methicillin- resistant Staphylococcus aureus (MRSA). The patient has been afebrile for over 2 weeks He continues on broad-spectrum antibiotics. His C-reactive protein (CRP) has markedly improved, and the patient clinically feels better. Since he was started on Lasix drip and metolazone, the patient has diuresed 2-3 liters in the past 3 days. The patient is anxious to go home. He has lost 5 kg in the past 5 days. PLAN: Discontinue IV ceftaroline. There is no need for antibiotics. The patient has been treated for an IV phlebitis with MSSA bacteremia from an IV line and not from community-acquired pneumonia. He has received more than needed antibiotics. This is not endocarditis. The patient did not come with Staphylococcus aureus bacteremia and had negative cultures within 24 hours of antibiotics on December 03. Both cultures were negative, so that would not fit the criteria of endocarditis. He does not have an AICD infection and does not need any further antibiotic or SEAN from and infectious disease standpoint Thank you for the consultation. LOGAN
[2016-12-22 23:47] VITALS: BP 118/69
[2016-12-23] MEDS: IPRATROPIUM 0.5MG/ALBUTEROL 2.5MG INH SOL UD 3ML (DUONEB)(J7620) NEB SCH ×4 (02:19→20:00)
[2016-12-23 04:45] VITALS: BP 107/56
[2016-12-23] MEDS: SODIUM CHLORIDE 0.9% INJ 10 ML SYR IV SCH ×2 (05:01→18:43)
[2016-12-23 06:02] LABS: MEAN CORPUSCULAR HEMOGLOBIN 29.9 pg (27.0-33.0); MEAN CORPUSCULAR HGB CONC 32.6 g/dl (32.0-36.5); MEAN CORPUSCULAR VOLUME 91.8 fl (80.0-96.0); RED CELL DISTRIBUTION WIDTH 16.2 % (11.5-14.5); WHITE BLOOD COUNT 6.1 K/mm3 (4.0-10.0)
[2016-12-23 06:23] LABS: CALCIUM LEVEL 8.6 MG/DL (8.8-10.2); CREATININE FOR GFR 1.67 MG/DL (0.70-1.30); DIGOXIN LEVEL 2.1 NG/ML (0.5-2.0); GLOMERULAR FILTRATION RATE 43.1 (>42); POTASSIUM SERUM 3.8 MEQ/L (3.5-5.1)
[2016-12-23] MEDS: HumaLOG INSULIN (NovoLOG) PER UNIT SC SCH ×4 (07:18→22:36)
[2016-12-23 08:00] VITALS: BP 112/58
[2016-12-23] MEDS: ADVAIR DISKUS 250/50 INH PWD INH SCH ×2 (08:15→20:18)
[2016-12-23] MEDS: CARVedilol 3.125 MG TAB PO SCH (09:00)
[2016-12-23] MEDS: SENOKOT S TAB PO SCH ×2 (09:20→22:35)
[2016-12-23] MEDS: FLUTICASONE PROP 0.05% NASAL SPRAY 16 GM (FLONASE) SCH ×2 (09:21→22:34)
[2016-12-23] MEDS: RANOLAZINE 500 MG ER TAB PO SCH ×2 (09:21→22:36)
[2016-12-23] MEDS: PREGABALIN 100 MG CAP (LYRICA) PO SCH ×2 (09:21→22:36)
[2016-12-23] MEDS: guaiFENesin ER 600 MG TAB PO SCH ×2 (09:21→22:35)
[2016-12-23] MEDS: metOLazone 2.5 MG TAB PO SCH (09:21)
[2016-12-23] MEDS: POTASSIUM CHLORIDE 10 MEQ SR TABLET PO SCH ×2 (09:21→22:35)
[2016-12-23] MEDS: FUROSEMIDE injection 250 MG in D5W 225 ML IV SCH (10:54)
[2016-12-23 12:00] VITALS: BP 91/54
[2016-12-23 13:05] VITALS: BP 99/58
--- NOTE | 2016-12-23 15:41 | IPN ---
DATE: 12/23/2016 Time patient was seen was at 1430 hours. Patient has been seen and examined at the bedside. No acute events overnight. Patient is feeling well. Admits to some shallow breathing, however it has been there in the past. Denies any chest pain. Denies any abdominal pain, nausea, vomiting, diarrhea, constipation, or any problem with urination, or any blood in the urine or stool. Denies any other current new complaints. PHYSICAL EXAMINATION: VITAL SIGNS: Temperature 97.9, pulse 72, respirations 18, blood pressure 91/54, oxygen saturation 99% on room air at the time of examination. GENERAL: Patient is a pleasant, elderly male who was alert, awake, oriented times three. Does not appear to be in distress. Sitting up comfortably in his recliner. HEENT: Normocephalic, atraumatic. Extraocular motors intact. Mucous moist. Neck supple. No neck lymphadenopathy. CARDIOVASCULAR: Regular rate and rhythm. S1, S2 difficult to auscultate due to increased anteroposterior (AP) diameter. Patient does have distant heart sounds as a result. LUNGS: Clear to auscultation bilaterally. No wheezing, rales, or rhonchi. ABDOMEN: Obese, positive bowel sounds, soft, nontender, nondistended. No peritoneal signs. No ecchymosis. EXTREMITIES: 2+ pitting edema extending above the knee bilaterally. SKIN: Warm and dry. NEUROLOGIC: Cranial nerves II-XII intact. No focal neurological deficit. LABORATORY DATA: WBC 6.1, hemoglobin 10.2, hematocrit 31.2, with a platelet count of 166. Sodium 135, potassium 3.8, chloride 89, bicarbonate 37, BUN 43, creatinine 1.67, GFR 43.1, fasting glucose 149, calcium 8.4. Patient's digoxin level today is 2.1. Blood culture from 2 days ago shows no growth. Patient's sputum culture from 3 days ago shows yeast-like organism. Patient's blood culture from 4 days ago shows no growth. Methicillin-resistant Staphylococcus aureus (MRSA) screening from 7 days ago was negative. Patient did receive a head CT this morning due to fall. Preliminary results shows normal finding. Official result is pending, will followup. ASSESSMENT AND PLAN: 71-year-old male with a history of ischemic cardiomyopathy, severe congestive heart failure with ejection fraction of 20-25%, has been here for the past 26 days, admitted for congestive heart failure (CHF). Patient did receive antibiotic with Rocephin from 12/02/2016 to 12/17/2016 and also Zithromax for probable community-acquired pneumonia. In addition, he was switched to IV ceftaroline with no documentation of methicillin-resistant Staphylococcus aureus (MRSA). At this point, we believe patient's bacteremia likely is secondary to infected peripheral IV to the right hand which was documented by nursing. Patient's antibiotic has been stopped and patient does not need any further antibiotics and we do not believe this is endocarditis. Patient has been discussed with attending doctor, Dr. Batista. My preceptor for this patient encounter was Dr. Nirav Batista. The preceptor was physically present in the building during the encounter and was fully available. As needed, all aspects of the patient interview, examination, medical decision making process, and medical care plan development were reviewed and approved by the preceptor. The preceptor is aware and concurs with the plan as stated in the body of this note and will attest to such by her cosignature.
[2016-12-23 16:00] VITALS: BP 103/59
--- NOTE | 2016-12-23 17:14 | REP ---
LEFT ELBOW, FOUR VIEWS: HISTORY: There is no acute fracture or dislocation. The joint space is normal in appearance. IMPRESSION There is no acute fracture or dislocation. Signed by Ferny Gómez MD 12/24/2016 08:23 A
--- NOTE | 2016-12-23 17:18 | REP ---
CT HEAD WITHOUT CONTRAST: HISTORY: Fall. Areas of decreased attentuation are present in the periventricular white matter. This represents small vessel ischemic disease. There is no intraparenchymal hemorrhage, mass, or midline shift. The ventricular system and cortical sulci as well as subarachnoid space in the posterior fossa are dilated consistent with moderate volume loss. There is no extracerebral collection. There is no fracture. The visualized sinuses are clear. IMPRESSION: 1. Small vessel ischemic disease. 2. Moderate volume loss. Signed by Ferny Gómez MD 12/24/2016 08:23 A
--- NOTE | 2016-12-23 17:40 | IPN ---
DATE: 12/23/2016 Patient seen and examined. No acute events overnight. Reported improvement on respiration. Continue to make urine but during the day today, the patient had an episode of fall, reported hitting his head. Patient stated that he was trying to go to the bathroom when he was too weak and subsequently fell and hitting his right elbow and his head. Denies any chest pain, pressure or discomfort. No neurological deficits. Making urine. VITAL SIGNS: Temperature 97, pulse 72, respiratory 18, blood pressure 91/54, pulse ox 99% on 1 liter nasal cannula. LABORATORY DATA: WBC 6.1, H H 10.2/31.2, platelets 166. Chemistry: Sodium 135, potassium 3.8, chloride 89, bicarbonate 38, BUN 43, creatinine 1.67. PHYSICAL EXAMINATION: GENERAL: Patient frail, alert and oriented times three in no acute distress. HEENT: Normocephalic, atraumatic. PULMONARY: Diminished breath sounds bilateral base. No wheeze. Fine crackles at the base. CARDIAC: Regular rate and rhythm. 2/6 systolic murmur. ABDOMEN: Obese, soft. Positive bowel sounds. EXTREMITIES: 3+ bilateral lower extremity edema up to the sacrum, unchanged from previous. ASSESSMENT AND PLAN: This is a 71-year-old male patient with underlying medical history of ischemic cardiomyopathy. EF of 20% to 25%, chronic obstructive pulmonary disease, pulmonary hypertension, type 2 diabetes, chronic kidney disease stage 3, obstructive uropathy, neuropathy, benign prostatic hyperplasia (BPH), chronic venous stasis, morbid obesity presented to the emergency room with shortness of breath admitted for congestive heart failure, systolic dysfunction found to have infiltrates in the right lower lobe and pleural effusion. Blood culture positive for Methicillin-susceptible Staphylococcus aureus. Treated for Methicillin-susceptible Staphylococcus aureus line infection currently with no leukocytosis. Afebrile. PROBLEM: 1. Acute congestive heart failure exacerbation with systolic and diastolic dysfunction. EF of 20% to 25%. Large right-sided pleural effusion. CT of the chest on admission shows bilateral pleural effusion with abdominal ascites. Abnormal liver function tests. Diuresis with metolazone and Lasix. Strict ins and outs. Daily weights. Fluid restrictions. Dr. Capone of cardiology has been consulted. Follow up cardiology recommendations. Renally dose all medications. 2. Methicillin-susceptible Staphylococcus aureus bacteremia. Patient was treated with IV antibiotics who has been on Teflaro, likely secondary to IV phlebitis. Dr. Batista of infectious disease has been consulted. Patient currently off antibiotics. Cultures are negative. 3. Questionable right lower lobe pneumonia. Patient has been on prolonged antibiotics. No need for antibiotics as per infectious disease. Continue to follow. 4. Elevated Digoxin level. Digoxin has been adjusted by cardiology. Follow up Digoxin level. 5. Abdominal hematoma. Patient required a total of two units PRBCs transfusion. Patient has been on aspirin, Plavix and heparin injection, follow up H H. 6. History of coronary artery disease with ischemic cardiomyopathy. EF of 20% to 25%. Patient has an AICD pacer single lead. Aspirin and Plavix has been on hold secondary to abdominal wall hematoma. Will restart once patient's H H is stable. 7. Diabetes. Continue insulin as per protocol. 8. Gastroesophageal reflux disease. Continue PPI. 9. Benign prostatic hyperplasia (BPH). Continue current medication. 10. Chronic kidney disease. Baseline creatinine 1.4 to 1.5. Continue to follow up BUN and creatinine. Adjust Lasix as needed. 11. Morbid obesity complicating care. 12. History of chronic obstructive pulmonary disease. Continue current medication. 13. Coronary artery disease. Will restart aspirin and Plavix likely tomorrow. Continue beta blockers 14. Deconditioning. Physical therapy. 15. Deep vein thrombosis prophylaxis. Sequential compression device. Will not give heparin subcutaneous given abdominal wall hematoma. DISPOSITION: Patient with multiple comorbidities. Poor custodial prognosis. Physical therapy clinical improvement.
[2016-12-23] MEDS: FUROSEMIDE 100 MG/10 ML VIAL (J1940) IV SCH (18:42)
[2016-12-23] MEDS: CLOPIDOGREL 75 MG TAB PO SCH (18:47)
[2016-12-23] MEDS: ASPIRIN 81 MG ENTERIC TAB PO SCH (18:47)
[2016-12-23 19:26] VITALS: BP 105/56
[2016-12-23] MEDS: FINASTERIDE 5 MG TAB PO SCH (22:34)
[2016-12-23] MEDS: TAMSULOSIN 0.4 MG CAP PO SCH (22:34)
[2016-12-23] MEDS: OMEPRAZOLE 20 MG CAP PO SCH (22:35)
[2016-12-24] VITALS (7 sets, daily range): BP systolic 92–119; BP diastolic 52–69
[2016-12-24] MEDS: IPRATROPIUM 0.5MG/ALBUTEROL 2.5MG INH SOL UD 3ML (DUONEB)(J7620) NEB SCH ×4 (00:17→20:00)
[2016-12-24] MEDS: SODIUM CHLORIDE 0.9% INJ 10 ML SYR IV SCH ×2 (05:27→17:19)
[2016-12-24 05:48] LABS: MEAN CORPUSCULAR HEMOGLOBIN 29.1 pg (27.0-33.0); MEAN CORPUSCULAR HGB CONC 31.5 g/dl (32.0-36.5); MEAN CORPUSCULAR VOLUME 92.4 fl (80.0-96.0); RED CELL DISTRIBUTION WIDTH 16.5 % (11.5-14.5); WHITE BLOOD COUNT 7.8 K/mm3 (4.0-10.0)
[2016-12-24 06:17] LABS: CALCIUM LEVEL 9.2 MG/DL (8.8-10.2); CREATININE FOR GFR 1.76 MG/DL (0.70-1.30); DIGOXIN LEVEL 1.5 NG/ML (0.5-2.0); GLOMERULAR FILTRATION RATE 40.6 (>42); POTASSIUM SERUM 3.8 MEQ/L (3.5-5.1)
[2016-12-24] MEDS: HumaLOG INSULIN (NovoLOG) PER UNIT SC SCH ×4 (07:30→21:00)
[2016-12-24] MEDS: ADVAIR DISKUS 250/50 INH PWD INH SCH ×2 (08:24→19:33)
[2016-12-24] MEDS: CARVedilol 3.125 MG TAB PO SCH (09:00)
[2016-12-24] MEDS: FUROSEMIDE 100 MG/10 ML VIAL (J1940) IV SCH ×2 (09:00→16:45)
[2016-12-24] MEDS: CLOPIDOGREL 75 MG TAB PO SCH (09:48)
[2016-12-24] MEDS: guaiFENesin ER 600 MG TAB PO SCH ×2 (09:48→22:14)
[2016-12-24] MEDS: metOLazone 2.5 MG TAB PO SCH (09:48)
[2016-12-24] MEDS: RANOLAZINE 500 MG ER TAB PO SCH ×2 (09:49→22:14)
[2016-12-24] MEDS: POTASSIUM CHLORIDE 10 MEQ SR TABLET PO SCH ×2 (09:49→22:14)
[2016-12-24] MEDS: SENOKOT S TAB PO SCH ×2 (09:49→22:14)
[2016-12-24] MEDS: PREGABALIN 100 MG CAP (LYRICA) PO SCH ×2 (09:50→21:00)
[2016-12-24] MEDS: ASPIRIN 81 MG ENTERIC TAB PO SCH (09:50)
[2016-12-24] MEDS: DIGOXIN 0.125 MG TAB PO SCH (09:54)
[2016-12-24] MEDS: FLUTICASONE PROP 0.05% NASAL SPRAY 16 GM (FLONASE) SCH ×2 (09:55→22:15)
--- NOTE | 2016-12-24 14:39 | IPN ---
DATE OF SERVICE: 12/24/2016 The patient seen and examined. No acute events overnight. Denies any fever, chills, chest pain, pressure, or discomfort. The patient had a fall yesterday with no injury. CT scan and x-ray of the elbow appreciated with no fractures. The patient denies any shortness of breath, chest pain, pressure, or discomfort. VITAL SIGNS: Temperature 98.5, pulse 80, respiration 18, blood pressure 110/55, pulse oximetry 96% on 1 liter nasal cannula. LABORATORY: WBC 7.8, hemoglobin and hematocrit 9.6/30.4, platelets 147. Chemistry: Sodium 136, potassium 3.8, chloride 88, bicarbonate 42, BUN 47, creatinine 1.76. PHYSICAL EXAMINATION: GENERAL: The patient frail, alert, and oriented times three, in no acute distress. HEENT: Normocephalic, atraumatic. PULMONARY: Diminished breath sounds bilateral base. No wheeze. Fine crackles at the base. CARDIAC: Regular rate and rhythm. 2/6 systolic murmur. ABDOMEN: Obese, soft. Positive bowel sounds. EXTREMITIES: 3+ bilateral lower extremity edema up to the sacrum, unchanged from previous. ASSESSMENT AND PLAN: This is a 71-year-old male patient with underlying medical history of ischemic cardiomyopathy, ejection fraction (EF) of 20% to 25%, chronic obstructive pulmonary disease (COPD), pulmonary hypertension, type 2 diabetes, chronic kidney disease (CKD) stage III, obstructive uropathy, neuropathy, benign prostatic hyperplasia (BPH), chronic venous stasis, morbid obesity, presented to the emergency room with shortness of breath, admitted for acute congestive heart failure (CHF) exacerbation with systolic dysfunction, found to have infiltrates in the right lower lobe with pleural effusion. Blood culture positive for methicillin-susceptible Staphylococcus aureus (MSSA). Treated. Possibly related to phlebitis due to IVs. Treated for MSSA line infection. Currently, afebrile with no leukocytosis. PROBLEMS: 1. Acute congestive heart failure exacerbation with systolic and diastolic dysfunction. EF of 20% to 25%. Large right-sided pleural effusion. CT of the chest on the admission shows bilateral pleural effusion and abdominal ascites. Abnormal liver function tests. The patient was diuresed with Lasix and metolazone. Initially, on Lasix drip. Currently, on intravenous (IV) Lasix twice a day. Strict intake and output (I and O). Daily weights. Cardiology was consulted, Dr. Capone and Dr. Sebastian. Followup cardiology recommendation. Renally dose all medication. 2. Methicillin-susceptible Staphylococcus aureus bacteremia. The patient was treated with IV antibiotics. Has been on Teflaro. Likely secondary to IV phlebitis. Dr. Batista from infectious disease has been consulted. Currently, off antibiotics. Cultures negative. 3. Questionable right lower lobe pneumonia. The patient had prolonged antibiotics. No need for antibiotics, as per infectious disease. Continue to follow. 4. Elevated digoxin level. Digoxin has been adjusted by cardiology. Followup digoxin level. 5. Abdominal hematoma. The patient required a total of 2 units of packed red blood cells. The patient has been on aspirin, Plavix, and heparin subcutaneous. Follow hemoglobin and hematocrit. Aspirin, Plavix, and heparin subcutaneous has been held. Currently, we are restarting aspirin and Plavix. 6. History of coronary arterial disease with ischemic cardiomyopathy. EF of 20% to 25%. The patient has an automatic implantable cardioverter-defibrillator (AICD) and single-lead pacer. Aspirin and Plavix has been initially held secondary to abdominal wall hematoma. Currently, restarting aspirin and Plavix. Followup hemoglobin and hematocrit. 7. Type 2 diabetes. Insulin as per protocol. 8. Gastroesophageal reflux disease (GERD). Continue proton pump inhibitor (PPI). 9. Benign prostatic hypertrophy (BPH). Continue current medication. 10. Chronic kidney disease. Baseline creatinine 1.4 to 1.5. Currently, creatinine slightly elevated due to diuresis. Lasix dose has been adjusted. Continue to follow. 11. Morbid obesity, complicating care. 12. History of chronic obstructive pulmonary disease. Continue current medication. 13. Coronary arterial disease. Restarting aspirin and Plavix. Continue beta eitan. 14. Deconditioning. Physical therapy. 15. Deep venous thrombosis (DVT) prophylaxis. Sequential compression device. Will avoid heparin subcutaneous, given the patient with abdominal wall hematoma. DISPOSITION: The patient with multiple comorbidities. Poor long-term prognosis. Continue physical therapy. Pending clinical improvement. Will plan to switch the patient's diuretics to oral over the next couple of days in preparation for potential discharge.
[2016-12-24] MEDS: TAMSULOSIN 0.4 MG CAP PO SCH (22:14)
[2016-12-24] MEDS: FINASTERIDE 5 MG TAB PO SCH (22:14)
[2016-12-24] MEDS: OMEPRAZOLE 20 MG CAP PO SCH (22:14)
[2016-12-25] MEDS: IPRATROPIUM 0.5MG/ALBUTEROL 2.5MG INH SOL UD 3ML (DUONEB)(J7620) NEB SCH ×4 (02:06→20:00)
[2016-12-25 05:20] VITALS: BP 111/64
[2016-12-25] MEDS: SODIUM CHLORIDE 0.9% INJ 10 ML SYR IV SCH ×2 (05:29→17:44)
[2016-12-25 05:52] LABS: MEAN CORPUSCULAR HEMOGLOBIN 30.2 pg (27.0-33.0); MEAN CORPUSCULAR HGB CONC 32.6 g/dl (32.0-36.5); MEAN CORPUSCULAR VOLUME 92.7 fl (80.0-96.0); WHITE BLOOD COUNT 7.2 K/mm3 (4.0-10.0)
[2016-12-25 06:23] LABS: CALCIUM LEVEL 8.6 MG/DL (8.8-10.2); CREATININE FOR GFR 1.65 MG/DL (0.70-1.30); DIGOXIN LEVEL 1.9 NG/ML (0.5-2.0); GLOMERULAR FILTRATION RATE 43.8 (>42); POTASSIUM SERUM 3.8 MEQ/L (3.5-5.1)
[2016-12-25] MEDS: HumaLOG INSULIN (NovoLOG) PER UNIT SC SCH ×4 (07:30→20:28)
[2016-12-25 08:00] VITALS: BP 108/69
[2016-12-25] MEDS: ADVAIR DISKUS 250/50 INH PWD INH SCH ×2 (08:13→19:50)
--- NOTE | 2016-12-25 08:45 | IPN ---
DATE: 12/25/2016 Mr. Morejon is feeling relatively well. He denies any resting dyspnea or chest discomfort. He seems to be relatively content, but it is somewhat anxious to leave the hospital. Blood pressure 111/64, heart rate is in 70s and low 80s, is sinus rhythm. He is afebrile. Saturation is 90% on 1 liter nasal cannula, but it was up to high 90s on 1 liter during the night. His fluid balance yesterday was only about 200 mL negative. He is already about 330 mL negative today. Weight is documented 78.2 , which is similar to yesterday, but represents fairly significant weight loss over last week. His JVP is still high. Lungs reveal diminished breath sounds at least over half of the right lung schafer and at least a third of lung field corresponding to probably large bilateral pleural effusions. Heart exam reveals somewhat muffled heart sounds, but is regular. I do no appreciate any gallop or rub. Abdomen is soft. I cannot rule out that there is underlying ascites and he still has peripheral edema. He has a PICC line in his right arm and he has a Davis catheter in place. Laboratory corona, CBC reveals a hemoglobin 9.7, hematocrit 79, and platelet count 140,000. Basic metabolic panel potassium 3.8, BUN 43, creatinine 1.7 for a GFR of 44 and glucose 124. Digoxin level was 1.9. ASSESSMENT/PLAN: Mr. Morejon is a 71-year-old man who has known ischemic cardiomyopathy with severely reduced left ventricular systolic function. He came with exacerbated heart failure and infection. It looks like his infectious problems are under control and his recent cultures are all negative. On the other hand, his heart failure is still not controlled. The management is complicated by low blood pressure. I will leave the doses of diuretics unchanged today. He is on Lasix 60 twice a day IV plus Zaroxolyn 2.5mg. If we do not accomplish any diuretic affect today, I will double the dose of furosemide tomorrow. The blood pressure so far has been holding even though in the past the aggressive diuresis had to be slowed down because of low blood pressure. I do not believe we can introduce beta blockers or WALDEMAR inhibitors in this setting. I am going to cut the dose of digoxin to just every 3 days as the level is still relatively high. His prognosis unfortunately is guarded. He is a DO NOT INTUBATE, DO NOT RESUSCITATE and yet has a defibrillator in place. I did not talk to him about deactivating the device. Dr. Capone is back tomorrow. LOGAN
[2016-12-25] MEDS: CARVedilol 3.125 MG TAB PO SCH (08:53)
[2016-12-25] MEDS: FUROSEMIDE 100 MG/10 ML VIAL (J1940) IV SCH ×2 (09:30→17:43)
[2016-12-25] MEDS: metOLazone 2.5 MG TAB PO SCH (09:30)
[2016-12-25] MEDS: ASPIRIN 81 MG ENTERIC TAB PO SCH (09:30)
[2016-12-25] MEDS: CLOPIDOGREL 75 MG TAB PO SCH (09:31)
[2016-12-25] MEDS: guaiFENesin ER 600 MG TAB PO SCH ×2 (09:31→21:33)
[2016-12-25] MEDS: RANOLAZINE 500 MG ER TAB PO SCH ×2 (09:31→21:32)
[2016-12-25] MEDS: POTASSIUM CHLORIDE 10 MEQ SR TABLET PO SCH ×2 (09:31→21:32)
[2016-12-25] MEDS: PREGABALIN 100 MG CAP (LYRICA) PO SCH ×2 (09:31→21:34)
[2016-12-25] MEDS: SENOKOT S TAB PO SCH ×2 (09:31→21:32)
[2016-12-25] MEDS: FLUTICASONE PROP 0.05% NASAL SPRAY 16 GM (FLONASE) SCH ×2 (09:32→21:33)
[2016-12-25 11:30] VITALS: BP 102/50
[2016-12-25 11:58] VITALS: BP 96/64
[2016-12-25 15:49] VITALS: BP 111/64
--- NOTE | 2016-12-25 19:46 | IPN ---
DATE: 12/25/2016 SUBJECTIVE: Patient seen and examined. No acute events overnight. Reported improved respiration. Continues to have lower extremity edema. Denies any chest pain, pressure, discomfort. Case discussed with physical therapy and nursing staff. The patient has been very consistent, was intermittently feeling lethargic and very high fall risk. VITAL SIGNS: Temperature 97.5, pulse 88, respirations 18, blood pressure 111/64, pulse oximetry 98% on room air. LABORATORY DATA: WBC 7.2, hemoglobin and hematocrit 9.7 over 29.9, platelets 140. Chemistry: Sodium 136, potassium 3.8, chloride 91, bicarbonate 39, BUN 43, creatinine 1.65. PHYSICAL EXAMINATION: GENERAL: Patient frail, alert and oriented times three, in no acute distress. HEENT: Normocephalic, atraumatic. PULMONARY: Diminished breath sounds bilateral bases. No wheeze. Fine crackles. CARDIAC: Regular rate and rhythm. 2/6 systolic murmur. ABDOMEN: Soft, obese. Positive bowel sounds. EXTREMITIES: 3+ bilateral lower extremity edema, pretty much unchanged. ASSESSMENT AND PLAN: This is a 71-year-old male patient with underlying medical history of ischemic cardiomyopathy, ejection fraction (EF) of 20-25%, chronic obstructive pulmonary disease (COPD), pulmonary hypertension, type 2 diabetes, chronic kidney disease (CKD) stage III, obstructive uropathy, neuropathy, benign prostatic hypertrophy (BPH), chronic venous stasis, morbid obesity, who presented to the emergency room with shortness of breath, admitted for acute congestive heart failure (CHF) exacerbation with systolic dysfunction, found to have infiltrate in the right lower lobe with pleural effusion. Blood culture is positive for methicillin-sensitive Staphylococcus aureus (MSSA), which was treated for possible MSSA phlebitis due to intravenous (IV), currently afebrile with no leukocytosis. 1. Acute congestive heart failure exacerbation with systolic and diastolic dysfunction, EF of 20-25%. 2. Large right-sided pleural effusion. CT of the chest on admission shows bilateral pleural effusions, abdominal ascites, abnormal liver function tests. The patient has been diuresed with Lasix and metolazone. Initially on Lasix drip. Currently IV Lasix twice a day. Strict intake and output, daily weight. Cardiology doctors, Dr. Capone and Dr. Sebastian, have been consulted. Followup cardiology recommendation with newly dosed medication. 3. MSSA bacteremia. The patient was treated with antibiotic Teflaro, likely secondary to IV phlebitis. Appreciate Dr. Batista for infectious disease. Currently off antibiotics. Culture negative. 4. Questionable right lower lobe pneumonia. The patient had a prolonged antibiotic. No need for antibiotic as per infectious disease (ID) currently. Will continue to follow. 5. Elevated digoxin. Digoxin level has been adjusted by cardiology. Continue to follow. 6. Abdominal hematoma. The patient required two units of packed red blood cells (PRBCs). Has been on aspirin and Plavix and heparin subcutaneous. Followup hemoglobin and hematocrit. Aspirin, Plavix, and heparin subcutaneous have been on hold. Currently restarting aspirin and Plavix. 7. History of coronary artery disease with ischemic cardiomyopathy, EF of 20-25%. The patient has an automatic implantable cardioverter defibrillator (AICD) with one single lead pacer. Aspirin and Plavix initially held for abdominal wall hematoma. Currently restarting aspirin and Plavix. Followup hemoglobin and hematocrit. 8. Type 2 diabetes. Insulin as per protocol. 9. Gastroesophageal reflux disease (GERD). Continue proton pump inhibitor (PPI). 10. Benign prostatic hypertrophy (BPH). Continue current management. 11. Chronic kidney disease (CKD). Currently baseline creatinine 1.4 to 1.5. Currently almost close to baseline. Continue to follow. Lasix dose adjusted. 12. Morbid obesity complicating care. 13. History of chronic obstructive pulmonary disease (COPD). Continue current medications. 14. Coronary arterial disease. Continue aspirin and Plavix and beta blockers. 15. Deconditioning. Continue physical therapy. 16. Deep venous thrombosis (DVT) prophylaxis. Sequential compression device. Avoid pharmacological agents given abdominal wall hematoma. DISPOSITION: Patient with multiple comorbidities, severe cardiac disease, poor long-term prognosis. Continue physical therapy. Pending clinical improvement. Will eventually switch diuretics to oral. The patient might need 24/7 care after discussion with physical therapy. Social work has also been involved.
[2016-12-25 20:00] VITALS: BP 112/60
[2016-12-25] MEDS: OMEPRAZOLE 20 MG CAP PO SCH (21:32)
[2016-12-25] MEDS: TAMSULOSIN 0.4 MG CAP PO SCH (21:32)
[2016-12-25] MEDS: FINASTERIDE 5 MG TAB PO SCH (21:33)
[2016-12-25] MEDS: SPIRONOLACTONE 25 MG TAB PO SCH (21:33)
[2016-12-26] VITALS (7 sets, daily range): BP systolic 102–116; BP diastolic 55–67
[2016-12-26] MEDS: IPRATROPIUM 0.5MG/ALBUTEROL 2.5MG INH SOL UD 3ML (DUONEB)(J7620) NEB SCH ×4 (02:00→18:51)
[2016-12-26 04:45] LABS: MEAN CORPUSCULAR HGB CONC 32.5 g/dl (32.0-36.5); MEAN CORPUSCULAR VOLUME 92.4 fl (80.0-96.0); RED CELL DISTRIBUTION WIDTH 16.1 % (11.5-14.5)
[2016-12-26 05:15] LABS: CALCIUM LEVEL 8.7 MG/DL (8.8-10.2); CREATININE FOR GFR 1.79 MG/DL (0.70-1.30); GLOMERULAR FILTRATION RATE 39.8 (>42); POTASSIUM SERUM 4.3 MEQ/L (3.5-5.1)
[2016-12-26] MEDS: SODIUM CHLORIDE 0.9% INJ 10 ML SYR IV SCH ×2 (05:29→17:08)
[2016-12-26] MEDS: ADVAIR DISKUS 250/50 INH PWD INH SCH ×2 (07:22→22:06)
[2016-12-26] MEDS: HumaLOG INSULIN (NovoLOG) PER UNIT SC SCH ×4 (07:29→21:00)
[2016-12-26] MEDS: SENOKOT S TAB PO SCH ×2 (08:42→21:26)
[2016-12-26] MEDS: FUROSEMIDE 100 MG/10 ML VIAL (J1940) IV SCH ×2 (08:42→17:08)
[2016-12-26] MEDS: POTASSIUM CHLORIDE 10 MEQ SR TABLET PO SCH ×2 (08:43→21:26)
[2016-12-26] MEDS: PREGABALIN 100 MG CAP (LYRICA) PO SCH ×2 (08:43→21:26)
[2016-12-26] MEDS: CARVedilol 3.125 MG TAB PO SCH ×2 (08:43→08:45)
[2016-12-26] MEDS: ASPIRIN 81 MG ENTERIC TAB PO SCH (08:43)
[2016-12-26] MEDS: CLOPIDOGREL 75 MG TAB PO SCH (08:44)
[2016-12-26] MEDS: metOLazone 2.5 MG TAB PO SCH (08:44)
[2016-12-26] MEDS: guaiFENesin ER 600 MG TAB PO SCH ×2 (08:44→21:26)
[2016-12-26] MEDS: RANOLAZINE 500 MG ER TAB PO SCH ×2 (08:44→21:26)
[2016-12-26] MEDS: FLUTICASONE PROP 0.05% NASAL SPRAY 16 GM (FLONASE) SCH ×2 (08:45→21:27)
--- NOTE | 2016-12-26 19:42 | IPN ---
DATE: 12/26/2016 Patient seen and examined. No acute events overnight. Denies any fevers or chills, chest pain, pressure or discomfort. Currently feels comfortable. Nursing staff reported patient having waxing/waning mental status, occasionally with agitation, not very compliant and has been agitated and aggressive at times, refusing fall precautions alarms. VITAL SIGNS: Temperature 97.8, pulse 89, respirations 18, blood pressure 107/60, pulse oximetry 98% on 2 liters nasal cannula. LABORATORY DATA: WBC 9, hemoglobin and hematocrit 10.3 over 31.7, platelets 141. Chemistry: Sodium 137, potassium 4.3, chloride 91, BUN 43, creatinine 1.79. PHYSICAL EXAMINATION: GENERAL: Patient alert and oriented times three, frail, in no acute distress. HEENT: Normocephalic, atraumatic. PULMONARY: Diminished breath sounds bilateral base with fine crackles. CARDIAC: Regular rate and rhythm, 2/6 systolic murmur. ABDOMEN: Soft, obese, nontender. Positive bowel sounds. EXTREMITIES: 2 to 3+ bilateral lower extremity edema, seems to be mildly improved. ASSESSMENT AND PLAN: This is a 71-year-old male patient with underlying medical history of ischemic cardiomyopathy, ejection fraction (EF) of 20-25%, chronic obstructive pulmonary disease (COPD), pulmonary hypertension, type 2 diabetes, chronic kidney disease, stage III, obstructive uropathy, neuropathy, BPH, chronic venous stasis, morbid obesity. Patient presented to the emergency room with shortness of breath, admitted for acute congestive heart failure (CHF) exacerbation with systolic dysfunction, found to have infiltrates bilateral lobe with pleural effusion. Blood culture positive for methicillin-sensitive Staphylococcus aureus (MSSA), which was treated for MSSA phlebitis due to IV. Currently afebrile with no leukocytosis. Problems: 1. Acute CHF with systolic dysfunction. EF of 20-25% with right-sided infiltrate on CT scan of the chest and bilateral pleural effusion, abdominal ascites, abnormal liver function test on admission. Patient was diuresed with Lasix. Initially on Lasix drip, currently on IV Lasix twice a day, strict intake and output with also metolazone. Cardiology, Dr. Capone and Dr. Sebastian, has been consulted. Renally dose medication. 2. Methicillin-sensitive Staphylococcus aureus bacteremia. Patient was treated with IV antibiotics on Teflaro. Likely secondary to IV phlebitis. Infectious disease, Dr. Batista, consulted. Currently off antibiotics. Culture has been negative. 3. Questionable right-sided pneumonia. The patient had prolonged antibiotics. No need for antibiotics as per infectious disease. Continue to follow. 4. Elevated digoxin level. Digoxin dose has been adjusted by cardiology. Continue to follow. 5. Abdominal hematoma. Patient required a total of two units packed red blood cells. The patient has been on aspirin and Plavix and heparin subcu. Followup hemoglobin and hematocrit. Aspirin, Plavix and heparin subcu initially was held. Currently aspirin and Plavix has been restarted. 6. History of coronary artery disease with ischemic cardiomyopathy. EF of 20-25% . Patient with automatic implantable cardioverter defibrillator (AICD) and single lead pacer. Aspirin and Plavix have been restarted. Initially held for abdominal wall hematoma. Followup hemoglobin and hematocrit. 7. Type 2 diabetes. Continue insulin as per protocol. 8. Gastroesophageal reflux disease. Continue proton pump inhibitor (PPI). 9. BPH. Continue current medication. 10. Chronic kidney disease. Baseline creatinine 1.4 to 1.5; currently elevated due to diuresis. Lasix dose adjusted and continued. Unfortunately, the patient does need to be further diuresed. The patient is severely fluid overloaded. Will closely monitor kidney function. 11. Morbid obesity. Complicating care. 12. History of chronic obstructive pulmonary disease. Continue current medications. 13. Coronary artery disease. Restarting aspirin and Plavix, beta eitan. 14. Deconditioning. Physical therapy. 15. Deep vein thrombosis (DVT) prophylaxis. Sequential compression device. Patient on aspirin and Plavix. Avoid anticoagulation given abdominal wall hematoma. DISPOSITION: Patient with multiple comorbidities, poor long-term prognosis. Continue physical therapy. Patient might need further assistance at home, possible that he will need 24/7 care versus [facility] facility but will assess the patient and evaluate for clinical improvement before deciding. MTDD
[2016-12-26] MEDS: OMEPRAZOLE 20 MG CAP PO SCH (21:26)
[2016-12-26] MEDS: TAMSULOSIN 0.4 MG CAP PO SCH (21:26)
[2016-12-26] MEDS: FINASTERIDE 5 MG TAB PO SCH (21:26)
[2016-12-26] MEDS: SPIRONOLACTONE 25 MG TAB PO SCH (21:26)
[2016-12-27] MEDS: IPRATROPIUM 0.5MG/ALBUTEROL 2.5MG INH SOL UD 3ML (DUONEB)(J7620) NEB SCH ×5 (01:38→23:55)
[2016-12-27 04:26] VITALS: BP 116/59
[2016-12-27] MEDS: SODIUM CHLORIDE 0.9% INJ 10 ML SYR IV SCH ×2 (05:07→17:34)
[2016-12-27 05:37] LABS: MEAN CORPUSCULAR HEMOGLOBIN 29.5 pg (27.0-33.0); MEAN CORPUSCULAR HGB CONC 31.9 g/dl (32.0-36.5); MEAN CORPUSCULAR VOLUME 92.2 fl (80.0-96.0); RED CELL DISTRIBUTION WIDTH 16.1 % (11.5-14.5); WHITE BLOOD COUNT 6.6 K/mm3 (4.0-10.0)
[2016-12-27 06:02] LABS: CALCIUM LEVEL 8.5 MG/DL (8.8-10.2); CREATININE FOR GFR 1.66 MG/DL (0.70-1.30); GLOMERULAR FILTRATION RATE 43.4 (>42)
[2016-12-27] MEDS: ADVAIR DISKUS 250/50 INH PWD INH SCH ×2 (07:09→20:04)
[2016-12-27 08:00] VITALS: BP 105/65
[2016-12-27] MEDS: PREGABALIN 100 MG CAP (LYRICA) PO SCH ×2 (08:43→21:00)
[2016-12-27] MEDS: FUROSEMIDE 100 MG/10 ML VIAL (J1940) IV SCH ×2 (08:43→17:33)
[2016-12-27] MEDS: CLOPIDOGREL 75 MG TAB PO SCH (08:44)
[2016-12-27] MEDS: ASPIRIN 81 MG ENTERIC TAB PO SCH (08:44)
[2016-12-27] MEDS: guaiFENesin ER 600 MG TAB PO SCH ×2 (08:44→21:30)
[2016-12-27] MEDS: SENOKOT S TAB PO SCH ×2 (08:45→21:30)
[2016-12-27] MEDS: metOLazone 2.5 MG TAB PO SCH (08:45)
[2016-12-27] MEDS: CARVedilol 3.125 MG TAB PO SCH (08:46)
[2016-12-27] MEDS: DIGOXIN 0.125 MG TAB PO SCH (08:46)
[2016-12-27] MEDS: HumaLOG INSULIN (NovoLOG) PER UNIT SC SCH ×4 (08:46→19:37)
[2016-12-27] MEDS: POTASSIUM CHLORIDE 10 MEQ SR TABLET PO SCH ×2 (08:47→21:29)
[2016-12-27] MEDS: RANOLAZINE 500 MG ER TAB PO SCH ×2 (09:37→21:30)
[2016-12-27] MEDS: FLUTICASONE PROP 0.05% NASAL SPRAY 16 GM (FLONASE) SCH ×2 (09:37→21:00)
[2016-12-27 12:00] VITALS: BP 107/58
--- NOTE | 2016-12-27 15:11 | IPN ---
DATE: 12/27/2016 Mr. Pierce Morejon was seen earlier today. He was sitting in the chair in his room, in no acute distress at rest. He stated that his shortness of breath and pedal edema have improved. He denies any bleeding. He denies any dizziness. He has no focal manifestation. He continues to be short of breath with minimal activities. On physical examination, patient is alert and oriented, in no acute distress at rest and his last vital signs today revealed a blood pressure of 105/65 with a pulse of 91, respirations 18, and his maximum temperature is 96.9 degrees Fahrenheit with an oxygen saturation of 95% on 2 liters nasal cannula. He has a negative fluid balance of 1.2 liters for 12/25/2016, but not measured for 12/26/2016. It was reported to be -35 mL, probably artifactual. HEAD/EYES/EARS/NOSE/THROAT: Atraumatic. NECK: Supple with increased jugular venous distention (JVD). LUNGS: Revealed decreased breath sounds at the base, particularly the right base. HEART: The heart examination revealed normal S1 and S2 without gallops. The PMI is displaced inferiorly and laterally. There is no rub. ABDOMEN: Soft and protuberant. Could not rule out any ascites. EXTREMITIES: Revealed +3 to +4 bilateral lower leg edema. NEUROLOGICAL: Examination grossly is negative for focal deficits. LABORATORIES: CBC done today revealed a WBC of 6.6, hemoglobin 9.5, hematocrit 29.6, and platelets 121,000. BMP revealed a sodium of 137, potassium 4.0, chloride 93, CO2 38, BUN 52, creatinine 1.6, GFR 43.4, fasting glucose 128, and calcium 8.5. Serum digoxin on 12/25/2016 was 1.9. Telemetry revealed normal sinus rhythm. IMPRESSION: Mr. Pierce Morejon seems to be stable status post admission for decompensated congestive heart failure secondary to left ventricular systolic dysfunction, acute on chronic. He is minimally responding to current management. According to his last echocardiogram, his cardiac prognosis is poor. He has a restrictive pattern. I have noticed that his kidney function is deteriorating and for this reason, I will change the Zaroxolyn to every other day. He will need to be monitored. We also will need to monitor his serum digoxin regularly. I will continue to monitor him along with you. Once again, his cardiac prognosis seems to be guarded. He has a healthcare proxy as well as a DO NOT INTUBATE and DO NOT RESUSCITATE status. LOGAN
[2016-12-27 16:00] VITALS: BP 103/62
[2016-12-27 20:00] VITALS: BP 108/63
[2016-12-27] MEDS: SPIRONOLACTONE 25 MG TAB PO SCH (21:30)
[2016-12-27] MEDS: OMEPRAZOLE 20 MG CAP PO SCH (21:30)
[2016-12-27] MEDS: TAMSULOSIN 0.4 MG CAP PO SCH (21:30)
[2016-12-27] MEDS: FINASTERIDE 5 MG TAB PO SCH (21:30)
[2016-12-28 00:04] VITALS: BP 106/61
[2016-12-28 03:45] VITALS: BP 116/69
[2016-12-28] MEDS: SODIUM CHLORIDE 0.9% INJ 10 ML SYR IV SCH ×2 (05:26→17:48)
[2016-12-28 05:55] LABS: MEAN CORPUSCULAR HEMOGLOBIN 30.9 pg (27.0-33.0); MEAN CORPUSCULAR HGB CONC 33.1 g/dl (32.0-36.5); MEAN CORPUSCULAR VOLUME 93.6 fl (80.0-96.0); RED CELL DISTRIBUTION WIDTH 16.3 % (11.5-14.5); WHITE BLOOD COUNT 6.9 K/mm3 (4.0-10.0)
[2016-12-28 06:21] LABS: CALCIUM LEVEL 8.7 MG/DL (8.8-10.2); CREATININE FOR GFR 1.69 MG/DL (0.70-1.30); DIGOXIN LEVEL 1.8 NG/ML (0.5-2.0); GLOMERULAR FILTRATION RATE 42.6 (>42); POTASSIUM SERUM 4.1 MEQ/L (3.5-5.1)
[2016-12-28] MEDS: HumaLOG INSULIN (NovoLOG) PER UNIT SC SCH ×4 (07:30→20:47)
[2016-12-28] MEDS: ADVAIR DISKUS 250/50 INH PWD INH SCH ×2 (07:33→19:25)
[2016-12-28] MEDS: IPRATROPIUM 0.5MG/ALBUTEROL 2.5MG INH SOL UD 3ML (DUONEB)(J7620) NEB SCH ×3 (07:35→19:25)
[2016-12-28 08:00] VITALS: BP 103/58
[2016-12-28] MEDS: RANOLAZINE 500 MG ER TAB PO SCH ×2 (08:02→20:46)
[2016-12-28] MEDS: ASPIRIN 81 MG ENTERIC TAB PO SCH (08:02)
[2016-12-28] MEDS: CLOPIDOGREL 75 MG TAB PO SCH (08:03)
[2016-12-28] MEDS: guaiFENesin ER 600 MG TAB PO SCH ×2 (08:03→20:46)
[2016-12-28] MEDS: POTASSIUM CHLORIDE 10 MEQ SR TABLET PO SCH ×2 (08:03→20:46)
[2016-12-28] MEDS: PREGABALIN 100 MG CAP (LYRICA) PO SCH ×2 (08:03→20:46)
[2016-12-28] MEDS: SENOKOT S TAB PO SCH ×2 (08:03→20:46)
[2016-12-28] MEDS: FUROSEMIDE 100 MG/10 ML VIAL (J1940) IV SCH ×2 (08:04→17:47)
[2016-12-28] MEDS: CARVedilol 3.125 MG TAB PO SCH (08:04)
[2016-12-28] MEDS: FLUTICASONE PROP 0.05% NASAL SPRAY 16 GM (FLONASE) SCH ×2 (08:05→20:47)
[2016-12-28 12:00] VITALS: BP 105/65
--- NOTE | 2016-12-28 13:05 | IPN ---
DATE OF SERVICE: 12/28/2013 Patient denies any chest pain, pressure or discomfort. Reports no shortness of breath. Continues to have bilateral lower extremity edema. Patient reported dysuria. UA has been negative. Given the patient had a recent Davis, UA is negative for UTI. Will continue to follow. VITAL SIGNS: Temperature 97.2, pulse 85, respirations 18, blood pressure 103/58, pulse oximetry 94% on 1 liter nasal cannula. LABORATORIES: WBC 6.9, hemoglobin and hematocrit 9.9/29.9, platelets 117. Chemistries: Sodium 137, potassium 4.1, chloride 93, bicarb 38, BUN 49, creatinine 1.69. PHYSICAL EXAMINATION: GENERAL: Patient alert and oriented times three, very frail. No acute distress. HEENT: Normocephalic, atraumatic. PULMONARY: Diminished breath sounds bilateral base, fine crackles. CARDIAC: Regular rate and rhythm. 2/6 systolic murmur. ABDOMEN: Soft, obese, nontender. Positive bowel sounds. EXTREMITIES: 2/3 bilateral lower extremity edema. ASSESSMENT/PLAN: This is a 71-year-old male patient with underlying medical history of ischemic cardiomyopathy, ejection fraction of 20-25%, chronic obstructive pulmonary disease (COPD), pulmonary hypertension, type 2 diabetes, chronic kidney disease stage 3, obstructive uropathy, neuropathy, BPH, and obesity, who presented to the emergency room with shortness of breath admitted for acute CHF exacerbation with systolic dysfunction, found to have infiltrate of bilateral lower lobes of the lung with pleural effusion. Blood culture was positive for methicillin-susceptible Staphylococcus aureus (MSSA) suspected secondary to IV phlebitis. Currently afebrile off antibiotics with no leukocytosis. 1. Acute CHF exacerbation with systolic dysfunction, ejection fraction of 20-25%. Right sided infiltrate on CT scan and also pleural effusions. Initially showed abnormal liver function tests on admission. The patient was diuresed with Lasix. Initially on Lasix drip. Currently on Lasix IV twice a day with metolazone. Cardiology consults. Renally dose medications. Continue to follow. Strict intake and output. 2. MSSA bacteremia. Patient was treated with IV antibiotics, Teflaro. Likely secondary to IV phlebitis as per infectious disease Dr. Batista. Antibiotics currently is off. Patient has been asymptomatic with negative repeat cultures. 3. Questionable right sided pneumonia. Patient had prolonged antibiotics. No need for continuation of antibiotics as per infectious disease. 4. Elevated digoxin level. Dig dose has been adjusted by cardiology. Continue to follow. 5. Abdominal wall hematoma. Patient required a total of 2 units of packed red blood cells during this hospital stay. Patient has been on aspirin, Plavix and heparin subcu, which has been on hold. Currently given hemoglobin and hematocrit is stable, aspirin and Plavix have been restarted. Continue to monitor. 6. History of coronary artery disease with ischemic cardiomyopathy. Ejection fraction of 20-25%. Patient with AICD and single lead pacer. Aspirin and Plavix has been restarted. Monitor hemoglobin and hematocrit. 7. Type 2 diabetes. Continue insulin as per protocol. Followup fingerstick. 8. GERD. Continue proton pump inhibitor (PPI). 9. BPH. Continue current medications. 10. CKD. Baseline creatinine 1.4 to 1.5. Currently elevated due to diuretics. Unfortunately patient needs further diuresis given severe CHF and fluid overload. Will closely monitor kidney functions and daily weights. 11. Morbid obesity complicating care. 12. History of COPD. Continue current medications. 13. Coronary artery disease. Restarting aspirin, Plavix and beta blockers. 14. Deconditioning. Physical therapy. 15. Deep vein thrombosis (DVT) prophylaxis. Sequential compression devices (SCD). Aspirin and Plavix. Avoid anticoagulation given patient with abdominal wall hematoma. DISPOSITION: Patient with multiple comorbidities. 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 Prolonged hospital stay. Continue physical therapy. Patient may require 24/7 care versus care in a nursing facility, but the patient is currently not receptive. PFS has been consulted.
[2016-12-28 16:00] VITALS: BP 108/61
--- NOTE | 2016-12-28 17:05 | IPN ---
DATE: 12/27/2016 SUBJECTIVE: Patient seen and examined. No acute distress. The patient feels comfortable. Continues to be very frail. Denies any chest pain, pressure, discomfort, fevers or chills. VITAL SIGNS: Temperature 97.8, pulse 87, respirations 18, blood pressure 103/62, pulse oximetry 97% on two liters nasal cannula. LABORATORY DATA: WBC 6.6, hemoglobin and hematocrit 9.5 over 29.6, platelets 121. Chemistry: Sodium 137, potassium 4, chloride 97, BUN 52, creatinine 1.66. PHYSICAL EXAMINATION: GENERAL: The patient alert and oriented times three. Frail, in no acute distress. HEENT: Normocephalic, atraumatic. PULMONARY: Diminished breath sounds bilateral bases with fine crackles. CARDIAC: Regular rate and rhythm. 2/6 systolic murmur. ABDOMEN: Soft, obese, nontender. Positive bowel sounds. EXTREMITIES: 3+ bilateral lower extremity edema seems mildly improved. ASSESSMENT AND PLAN: This is a 71-year-old male patient with underlying medical history of ischemic cardiomyopathy, ejection fraction 20-25%, chronic obstructive pulmonary disease (COPD), pulmonary hypertension, type 2 diabetes, chronic kidney disease (CKD) stage III, obstructive uropathy, neuropathy, benign prostatic hypertrophy (BPH), chronic venous stasis, morbid obesity. The patient presented to the emergency room with shortness of breath, admitted for acute congestive heart failure (CHF) exacerbation with systolic dysfunction, found to have infiltrates bilateral lobes with pleural effusion. Blood culture positive for methicillin-sensitive Staphylococcus aureus (MSSA) which was treated for MSSA intravenous (IV) phlebitis. Currently afebrile with no leukocytosis. 1. Acute CHF exacerbation with systolic dysfunction. Ejection fraction (EF) of 20-25%, with right-sided infiltrate on CT scan of the chest with bilateral pleural effusions, abdominal ascites, abnormal liver function test on admission. The patient was diuresed with Lasix, initially on Lasix drip, currently on Lasix twice a day. Strict intake and output. Metolazone has also been added by cardiology Dr. Capone and Dr. Sebastian has been consulted. Renally dose medication. 2. MSSA bacteremia. The patient was treated with IV Teflaro, likely secondary to IV phlebitis. Infectious disease Dr. Batista has been consulted. Currently off antibiotics. Continue to monitor. Repeat cultures were negative. Questionable right-sided pneumonia. The patient has prolonged antibiotics. No need for antibiotics as per infectious disease. 3. Elevated digoxin level. Digoxin dose has been adjusted by cardiology. Continue to follow. 4. Abdominal hematoma. The patient required a total of two units of packed red blood cells (PRBCs). The patient's aspirin, Plavix, and heparin subcutaneous, have been on hold. Hemoglobin and hematocrit followed. Aspirin and Plavix have been restarted. 5. History of coronary arterial disease with ischemic cardiomyopathy, ejection fraction (EF) 20-25%. The patient has an automatic implantable cardioverter defibrillator (AICD) with single lead pacer. Aspirin and Plavix have been restarted. Initially held for abdominal wall hematoma. Followup hemoglobin and hematocrit. 6. Type 2 diabetes. Continue insulin as per protocol. 7. Gastroesophageal reflux disease (GERD). Continue proton pump inhibitor (PPI). 8. Benign prostatic hypertrophy (BPH). Continue current medication. 9. Chronic kidney disease (CKD). BUN and creatinine at baseline 1.4-1.5. Currently mildly elevated due to diuresis. The patient is fluid overloaded. Will monitor kidney function closely. 10. Morbid obesity complicating care. 11. History of COPD. Continue current medications. 12. Coronary arterial disease. Aspirin and Plavix restarted and beta eitan continued. 13. Deconditioning. Physical therapy. 14. DVT prophylaxis. Sequential compression devices. Patient on aspirin and Plavix. Avoid anticoagulation, given patient with abdominal wall hematoma. DISPOSITION: Patient with multiple comorbidities, poor long-term prognosis. Continue physical therapy. Might possibly need 24/7 care versus care home facility. Patient and family services (PFS) has been consulted. WALKERD
[2016-12-28 20:44] VITALS: BP 97/65
[2016-12-28] MEDS: OMEPRAZOLE 20 MG CAP PO SCH (20:46)
[2016-12-28] MEDS: TAMSULOSIN 0.4 MG CAP PO SCH (20:47)
[2016-12-28] MEDS: SPIRONOLACTONE 25 MG TAB PO SCH (20:47)
[2016-12-28] MEDS: FINASTERIDE 5 MG TAB PO SCH (20:47)
--- NOTE | 2016-12-28 20:57 | IPN ---
DATE: 12/28/2016 SUBJECTIVE: Mr. Pierce Morejon was seen early this morning, he was sitting in a chair in his room in no acute distress at rest. He is looking forward to going home. He stated that he has two horses that just gave . He has started physical therapy and has been ambulating. He thinks that his shortness of breath has improved, but his pedal edema has not improved much. He denies any chest pain, palpitations. He has no focal manifestation. There is no report of bleeding. Yesterday, I have decreased his metolazone because of deterioration of his kidney function. OBJECTIVE: HEENT: Atraumatic. NECK: Supple with ascending jugular. LUNGS: The lungs to not reveal any crackles. There are decreased breath sounds at the right base. HEART: The heart examination revealed heart sounds without gallops. The point of maximum impulse (PMI) is displaced inferiorly and laterally. There is no rub. ABDOMEN: Examination revealed a soft abdomen, protuberant. EXTREMITIES: Revealed +2 to +3 bilateral lower leg edema. NEUROLOGICAL: Examination grossly is negative for focal deficits. LABORATORIES: BMP done today revealed a sodium of 137, potassium 4.1, chloride 93, CO2 38, BUN 49, creatinine 1.69, GFR 42.6, fasting glucose 132, and calcium 8.7. CBC revealed a WBC of 6.9, hemoglobin 9.9, hematocrit 29.9, and platelets 117,000. Serum digoxin done today was 1.8. Telemetry revealed normal sinus rhythm. IMPRESSION: Mr. Pierce Morejon seems to be stable from a cardiac point of view, status post decompensated congestive heart failure, acute on chronic, secondary severe left ventricular systolic dysfunction due to ischemic cardiomyopathy. We have not been able to give him any angiotension-converting enzyme (WALDEMAR) inhibitor or angiotensin II receptor blockers (ARB) in view of his underlying kidney function. He is currently on a beta eitan as well as spironolactone and furosemide/metolazone. We will continue the same for now. We have discussed about a low-salt diet upon discharge, and he will need to monitor his weight closely, as well as his pedal edema. We probably can increase the spironolactone up to 50 mg by mouth daily, but we will need to monitor his blood pressure as well as his BUN and creatinine, as well as serum potassium. He does have an automatic implantable cardioverter defibrillator (AICD), but he has a DO NOT RESUSCITATE order. Based on his last echocardiogram on 11/29/2016, his prognosis from a cardiac point of view is poor. It was a pleasure to participate in the care of . Pierce Morejon for his underlying cardiac condition. I will continue to monitor him along with you while in the hospital and upon discharge as needed. Please do not hesitate to call if any questions. WALKERD
[2016-12-29] VITALS (7 sets, daily range): BP systolic 98–120; BP diastolic 56–70
[2016-12-29] MEDS: BISACODYL 10 MG SUPP PR PRN (00:24)
[2016-12-29] MEDS: IPRATROPIUM 0.5MG/ALBUTEROL 2.5MG INH SOL UD 3ML (DUONEB)(J7620) NEB SCH ×4 (01:22→20:00)
[2016-12-29] MEDS: SODIUM CHLORIDE 0.9% INJ 10 ML SYR IV SCH ×2 (05:18→17:25)
[2016-12-29 05:39] LABS: MEAN CORPUSCULAR HEMOGLOBIN 30.3 pg (27.0-33.0); MEAN CORPUSCULAR VOLUME 91.8 fl (80.0-96.0); RED CELL DISTRIBUTION WIDTH 16.3 % (11.5-14.5); WHITE BLOOD COUNT 8.6 K/mm3 (4.0-10.0)
[2016-12-29 06:14] LABS: CALCIUM LEVEL 8.6 MG/DL (8.8-10.2); CREATININE FOR GFR 1.83 MG/DL (0.70-1.30); GLOMERULAR FILTRATION RATE 38.8 (>42); POTASSIUM SERUM 4.4 MEQ/L (3.5-5.1)
[2016-12-29] MEDS: HumaLOG INSULIN (NovoLOG) PER UNIT SC SCH ×4 (07:30→21:00)
[2016-12-29] MEDS: ADVAIR DISKUS 250/50 INH PWD INH SCH ×2 (07:41→19:31)
--- NOTE | 2016-12-29 08:15 | IPN ---
DATE: 12/29/2016 Mr. Morejon feels better. He is currently in the chair by his bed and denies any complaints, but he does admit that he had difficulty breathing last night with paroxysmal nocturnal dyspnea (PND) again. Denies any chest pain. Denies palpitations. He has been ambulating on the progressive care unit (PCU) with a walker and has been making good progress in that regard. Vital Signs: Blood pressure remains low in the 90s to low 100s. He is afebrile. Saturation is 96% on room air or 1 liter of nasal cannula. Fluid balance yesterday was about 600 mL negative and has been negative for most of the days, even though his weight is not reflecting it. It was documented at 76.9 kg. He is alert and oriented and appropriate. His jugular venous pulse (JVP) is still very high. Lungs reveal diminished breath sounds over both bases indicative of likely bilateral pleural effusions. Heart exam reveals somewhat muffled heart sounds, but regular rhythm. No gallop. I do not appreciate a rub. Abdomen is obese. No physical signs to suggest ascites, even though I cannot really rule that out. Still very prominent peripheral edema, at least 2+. Neurologically, he seems to be generally weak, but otherwise intact. LABORATORIES: CBC: hemoglobin 10.4, hematocrit 31 and platelet count 126,000. Basic metabolic panel: potassium 4.4, BUN 53, creatinine 1.8 and glucose 151. Digoxin level yesterday was 1.8. ASSESSMENT/PLAN: Mr. Morejon is a 71-year-old man who has severe ischemic cardiomyopathy who presented initially with some form of infectious problem that has been corrected. I am not sure that we are certain about what was the source. On the cardiac front though he has a very prominent acute on chronic systolic congestive heart failure. The management has been complicated by concomitant renal failure and hypotension. He has been receiving high doses of diuretics, currently on Zaroxolyn, spironolactone 25 and furosemide 60 mg twice a day. Every day, his fluid balance is slightly negative. Previously, we tried higher doses, but it was limited on account of causing significant hypotension. I do not believe that there is a chance we can introduce an WALDEMAR inhibitor and the dose of Coreg is still very low and as such is still frequently held because of hypotension as well. I am hoping that with this management he will become euvolemic within the next few days. He wants to return home and apparently from a physical therapy (PT) point of view he is improving so I am hoping that this will be realistic as well. His overall prognosis though remains poor.
[2016-12-29] MEDS: CARVedilol 3.125 MG TAB PO SCH (09:00)
[2016-12-29] MEDS: RANOLAZINE 500 MG ER TAB PO SCH ×2 (09:46→21:58)
[2016-12-29] MEDS: PREGABALIN 100 MG CAP (LYRICA) PO SCH ×2 (09:47→21:58)
[2016-12-29] MEDS: FUROSEMIDE 100 MG/10 ML VIAL (J1940) IV SCH (09:47)
[2016-12-29] MEDS: ASPIRIN 81 MG ENTERIC TAB PO SCH (09:47)
[2016-12-29] MEDS: SENOKOT S TAB PO SCH ×2 (09:48→21:59)
[2016-12-29] MEDS: POTASSIUM CHLORIDE 10 MEQ SR TABLET PO SCH ×2 (09:48→21:59)
[2016-12-29] MEDS: guaiFENesin ER 600 MG TAB PO SCH ×2 (09:48→21:59)
[2016-12-29] MEDS: metOLazone 2.5 MG TAB PO SCH (09:48)
[2016-12-29] MEDS: CLOPIDOGREL 75 MG TAB PO SCH (09:48)
[2016-12-29] MEDS: FLUTICASONE PROP 0.05% NASAL SPRAY 16 GM (FLONASE) SCH ×2 (09:49→22:00)
[2016-12-29] MEDS ORDERED: FUROSEMIDE 80 MG TAB PO SCH (17:00)
[2016-12-29] MEDS ORDERED: FUROSEMIDE 40 MG/4 ML VIAL (J1940) IV ONE (17:00)
--- NOTE | 2016-12-29 18:49 | IPN ---
DATE: 12/29/2016 Patient seen and examined. Reported improved respiration. As per physical therapy, patient has also been ambulating better. Denies any chest pain, pressure or discomfort. VITAL SIGNS: Temperature 97, pulse 90, respirations 18, blood pressure 120/57, pulse oximetry 95% on room air. LABORATORY: WBC 8.6, hemoglobin and hematocrit 10.4 over 31.5, platelets 126. Chemistry: Sodium 136, potassium 4.4, chloride 93, bicarbonate 36, BUN 53, creatinine 1.83. PHYSICAL EXAMINATION: GENERAL: Patient alert and oriented times three, frail, in no acute distress. HEENT: Normocephalic, atraumatic. PULMONARY: Diminished breath sounds bilateral base with fine crackles. CARDIAC: Regular rate and rhythm, 2/6 systolic murmur. ABDOMEN: Soft, nontender. Positive bowel sounds. EXTREMITIES: 3+ bilateral lower extremity edema. ASSESSMENT AND PLAN: This is a 71-year-old male patient with underlying medical history of ischemic cardiomyopathy, ejection fraction (EF) of 20-25%, chronic obstructive pulmonary disease (COPD), pulmonary hypertension, type 2 diabetes, chronic kidney disease, stage III, obstructive uropathy, neuropathy, BPH, chronic venous stasis, morbid obesity. Patient presented to the emergency room with shortness of breath, admitted for acute congestive heart failure (CHF) exacerbation with systolic dysfunction. Also found to have infiltrates bilateral lobes with pleural effusion. Blood culture positive for methicillin-sensitive Staphylococcus aureus (MSSA) was suspected due to IV phlebitis. Currently afebrile with no leukocytosis. Completed treatment with antibiotics. Problems: 1. Acute congestive heart failure exacerbation with systolic dysfunction, ejection fraction of 20-25% with right-sided infiltrate on CT scan of the chest and with bilateral pleural effusion, abdominal ascites, abnormal liver function test on admission. The patient was diuresed with Lasix, initially on Lasix drip, currently switched to oral torsemide. Strict intake and output, daily weight. Metolazone has been added by cardiology. Cardiology consulted. Renally dose medication. 2. Methicillin-sensitive Staphylococcus aureus bacteremia. Patient treated with intravenous (IV) Teflaro, likely secondary to IV phlebitis. Infectious disease, Dr. Batista, consulted. Currently completed antibiotic course. 3. Elevated digoxin level. Digoxin has been adjusted by cardiology. Continue to monitor. 4. Abdominal wall hematoma. Patient required a total of two units of packed red blood cells (PRBCs). The patient's aspirin, Plavix and heparin subcu initially was held. Currently aspirin and Plavix have been restarted. Followup hemoglobin and hematocrit. 5. History of coronary artery disease with ischemic cardiomyopathy. Ejection fraction of 20-25%. Patient has an automatic implantable cardioverter defibrillator (AICD) as well as a single-lead pacer. Aspirin and Plavix have been restarted. Initially held due to abdominal wall hematoma. Followup hemoglobin and hematocrit. 6. Diabetes. Patient noncompliance with fingersticks and has been refusing insulin. Continue to encourage insulin as per protocol. Monitor glucose. 7. Gastroesophageal reflux disease (GERD). Continue proton pump inhibitor (PPI). 8. BPH. Continue current medications. 9. Chronic kidney disease. BUN and creatinine baseline is at 1.4 to 1.5, currently elevated due to diuresis. Diuretics have been adjusted. Patient still profoundly fluid overloaded. 10. Obesity. Complicating care. 11. History of chronic obstructive pulmonary disease. Continue current medications. 12. Coronary artery disease. Continue aspirin, Plavix, beta eitan. 13. Deconditioning. Physical therapy. 14. Deep vein thrombosis (DVT) prophylaxis. Sequential compression device. Avoid anticoagulation given abdominal wall hematoma. DISPOSITION: Patient with multiple comorbidities and severe cardiac dysfunction. Poor long-term prognosis. Disposition pending physical therapy.
[2016-12-29] MEDS: OMEPRAZOLE 20 MG CAP PO SCH (21:58)
[2016-12-29] MEDS: TAMSULOSIN 0.4 MG CAP PO SCH (21:58)
[2016-12-29] MEDS: FINASTERIDE 5 MG TAB PO SCH (21:59)
[2016-12-29] MEDS: SPIRONOLACTONE 25 MG TAB PO SCH (21:59)
[2016-12-30] MEDS: IPRATROPIUM 0.5MG/ALBUTEROL 2.5MG INH SOL UD 3ML (DUONEB)(J7620) NEB SCH ×4 (01:36→20:00)
[2016-12-30 04:00] VITALS: BP 111/73
[2016-12-30] MEDS: SODIUM CHLORIDE 0.9% INJ 10 ML SYR IV SCH ×2 (05:15→17:29)
[2016-12-30 05:42] LABS: MEAN CORPUSCULAR HEMOGLOBIN 29.4 pg (27.0-33.0); MEAN CORPUSCULAR HGB CONC 31.2 g/dl (32.0-36.5); MEAN CORPUSCULAR VOLUME 94.1 fl (80.0-96.0); RED CELL DISTRIBUTION WIDTH 16.1 % (11.5-14.5); WHITE BLOOD COUNT 7.2 K/mm3 (4.0-10.0)
[2016-12-30 05:50] LABS: CALCIUM LEVEL 8.6 MG/DL (8.8-10.2); CREATININE FOR GFR 1.83 MG/DL (0.70-1.30); GLOMERULAR FILTRATION RATE 38.8 (>42); MAGNESIUM LEVEL 1.9 MG/DL (1.8-2.4); POTASSIUM SERUM 4.2 MEQ/L (3.5-5.1)
[2016-12-30] MEDS: ADVAIR DISKUS 250/50 INH PWD INH SCH ×2 (07:04→20:37)
[2016-12-30] MEDS: HumaLOG INSULIN (NovoLOG) PER UNIT SC SCH (07:30)
[2016-12-30 08:00] VITALS: BP 110/68
[2016-12-30] MEDS: PREGABALIN 100 MG CAP (LYRICA) PO SCH ×3 (09:00→20:51)
[2016-12-30] MEDS: guaiFENesin ER 600 MG TAB PO SCH ×2 (09:08→20:50)
[2016-12-30] MEDS: POTASSIUM CHLORIDE 10 MEQ SR TABLET PO SCH ×2 (09:09→20:51)
[2016-12-30] MEDS: TORSEMIDE 20 MG TAB PO SCH (09:09)
[2016-12-30] MEDS: CLOPIDOGREL 75 MG TAB PO SCH (09:10)
[2016-12-30] MEDS: CARVedilol 3.125 MG TAB PO SCH (09:10)
[2016-12-30] MEDS: ASPIRIN 81 MG ENTERIC TAB PO SCH (09:10)
[2016-12-30] MEDS: SENOKOT S TAB PO SCH ×2 (09:11→20:50)
[2016-12-30] MEDS: DIGOXIN 0.125 MG TAB PO SCH (09:11)
[2016-12-30] MEDS: FLUTICASONE PROP 0.05% NASAL SPRAY 16 GM (FLONASE) SCH ×2 (09:19→20:52)
--- NOTE | 2016-12-30 10:25 | IPN ---
DATE: 12/30/2016 Pierce is seen in the progressive care unit (PCU). He is a little discouraged. He does not feel like he has made any progress over the last few days, though he does have some increasing amount of edema but having a modest diuresis daily. Bed scale weights are all over the place which is typical. Denies chest pain. Denies cough. PHYSICAL EXAMINATION: 110/68, pulse 89, 99% oxygen saturation on 2 liters. General appearance: Elderly, resting comfortably. Looks chronically ill. HEENT: Unremarkable. There is some jugular venous distention (JVD) present. Lungs: Decreased breath sounds. Rales both bases. Heart: Regular rate and rhythm. 2/6 systolic ejection murmur. Abdomen: Soft, nontender. Extremities show 2+ peripheral edema. Down from yesterday. IMPRESSION: 1. Acute on chronic congestive heart failure with systolic dysfunction. Ejection fraction 20-25%. Continue his diuresis. He is being monitored by cardiology. Appreciate their input. 2. Right sided infiltrate on CT scan for which he has completed a course of antibiotic therapy. 3. Altered mental status/toxic metabolic encephalopathy with myoclonic jerking. His nurse notes that he has been confused. Her has jerky movements at times as well. He is on high dose Lyrica as an outpatient, could be contributing. I am going to reduce the dose. I discussed this with him. 4. Methicillin-sensitive staphylococcus aureus (MSSA) bacteremia. He has completed a course of antibiotic therapy. No fevers. No sign of recurrent bacteremia. 5. Abdominal wall hematoma status post 2 units packed red blood cells. Back on aspirin and Plavix. Hemoglobins are stable. 6. Diabetes. He has been declining fingersticks and coverage for the past week. Blood sugars have generally been less than 200 so no benefit to providing titer control at this point anyway. 7. Chronic kidney disease stage III. Follows with periodic lab work. Adjust medications based on his renal function. 8. Coronary artery disease. Continue beta eitan, aspirin and Plavix. 9. Deconditioning. He is getting physical therapy. He is significantly deconditioned.
[2016-12-30 12:00] VITALS: BP 115/72
[2016-12-30] MEDS: RANOLAZINE 500 MG ER TAB PO SCH ×2 (14:07→21:15)
[2016-12-30 16:00] VITALS: BP 120/78
[2016-12-30 20:00] VITALS: BP 98/58; PULSE 100
[2016-12-30] MEDS: OMEPRAZOLE 20 MG CAP PO SCH (20:49)
[2016-12-30] MEDS: TAMSULOSIN 0.4 MG CAP PO SCH (20:50)
[2016-12-30] MEDS: FINASTERIDE 5 MG TAB PO SCH (20:50)
[2016-12-30] MEDS: SPIRONOLACTONE 25 MG TAB PO SCH (20:50)
[2016-12-30] MEDS: MOM 30ML SUSPENSION UDC PO PRN (20:53)
[2016-12-30 23:50] VITALS: BP 85/50
[2016-12-31] VITALS (7 sets, daily range): BP systolic 94–111; BP diastolic 52–69; PULSE 89–94
[2016-12-31] MEDS: IPRATROPIUM 0.5MG/ALBUTEROL 2.5MG INH SOL UD 3ML (DUONEB)(J7620) NEB SCH ×4 (03:20→20:00)
[2016-12-31] MEDS: SODIUM CHLORIDE 0.9% INJ 10 ML SYR IV SCH ×2 (06:08→17:02)
[2016-12-31 06:23] LABS: MEAN CORPUSCULAR HEMOGLOBIN 30.2 pg (27.0-33.0); MEAN CORPUSCULAR HGB CONC 32.3 g/dl (32.0-36.5); MEAN CORPUSCULAR VOLUME 93.5 fl (80.0-96.0); RED CELL DISTRIBUTION WIDTH 16.3 % (11.5-14.5); WHITE BLOOD COUNT 7.3 K/mm3 (4.0-10.0)
[2016-12-31 06:48] LABS: CALCIUM LEVEL 8.5 MG/DL (8.8-10.2); CREATININE FOR GFR 1.97 MG/DL (0.70-1.30); GLOMERULAR FILTRATION RATE 35.7 (>42); MAGNESIUM LEVEL 2.1 MG/DL (1.8-2.4); POTASSIUM SERUM 4.3 MEQ/L (3.5-5.1)
[2016-12-31] MEDS: PREGABALIN 100 MG CAP (LYRICA) PO SCH ×2 (09:00→21:00)
[2016-12-31] MEDS: ADVAIR DISKUS 250/50 INH PWD INH SCH ×2 (09:04→20:42)
[2016-12-31] MEDS: guaiFENesin ER 600 MG TAB PO SCH ×2 (09:23→21:03)
[2016-12-31] MEDS: MIRALAX *UNIT DOSE* 17GM PACKET PO PRN (09:23)
[2016-12-31] MEDS: RANOLAZINE 500 MG ER TAB PO SCH ×2 (09:24→21:02)
[2016-12-31] MEDS: POTASSIUM CHLORIDE 10 MEQ SR TABLET PO SCH ×2 (09:24→21:03)
[2016-12-31] MEDS: SENOKOT S TAB PO SCH ×2 (09:24→21:03)
[2016-12-31] MEDS: ACETAMINOPHEN TAB 650MG DOSE (2X325MG) PO PRN (09:25)
[2016-12-31] MEDS: TORSEMIDE 20 MG TAB PO SCH (09:25)
[2016-12-31] MEDS: metOLazone 2.5 MG TAB PO SCH (09:25)
[2016-12-31] MEDS: CARVedilol 3.125 MG TAB PO SCH (09:26)
[2016-12-31] MEDS: CLOPIDOGREL 75 MG TAB PO SCH (09:26)
[2016-12-31] MEDS: ASPIRIN 81 MG ENTERIC TAB PO SCH (09:26)
[2016-12-31] MEDS: FLUTICASONE PROP 0.05% NASAL SPRAY 16 GM (FLONASE) SCH ×2 (09:27→21:04)
--- NOTE | 2016-12-31 09:34 | IPN ---
DATE: 12/31/2016 Pierce is seen in progressive care unit (PCU). He is having mild clonic type jerking of his arms and legs, much worse on the left side than the right to the point now where it is interfering with his inability to ambulate. I suspect it was related to Lyrica and I reduced the dose yesterday, he is, however, refusing his Lyrica at this point and I think that is going to make the problem worse. I will ask neurology to see him. He is less short of breath. He continues to have a gentle diuresis, maintaining a stable blood pressure with this. PHYSICAL EXAMINATION: 95/52, pulse 90, respiratory rate 18, 97% oxygen saturation on 2 liters. General appearance: Resting comfortably, chronic ill appearing. No jugular venous distention. Lungs: Decreased breath sounds. Heart: Regular rate and rhythm, 2/6 systolic ejection murmur. Abdomen: Soft, nontender. 2+ peripheral edema stable from yesterday. LABS: Sodium 136, potassium 4.3, BUN 60, creatinine 1.9, glucose 139. White count 73, hemoglobin 10.4, platelets 112. IMPRESSION: 1. Acute on chronic systolic congestive heart failure, ejection 20-25%. Continue to slowly diurese. Cardiology also on case with him. Physical therapy working on conditioning. 2. Myoclonic jerking probably from withdrawing from Lyrica. However, was present to a more minor degree when he was taking a stable dose of Lyrica. I will ask neurology to see him. 3. History of Methicillin-sensitive staphylococcus aureus (MSSA) bacteremia and right side infiltrate on chest x-ray. He has completed antibiotic for this, no longer an active problem. 4. Abdominal wall hematoma. No recurrence. Restarting antiplatelet medications. 5. Diabetes type 2. He is declining fingersticks and coverage. 6. Chronic kidney disease stage III. Labs drawn on a daily basis. 7. Deconditioning. He is seeing physical therapy.
[2016-12-31] MEDS: BISACODYL 10 MG SUPP PR PRN (17:02)
[2016-12-31] MEDS: SPIRONOLACTONE 25 MG TAB PO SCH (21:02)
[2016-12-31] MEDS: OMEPRAZOLE 20 MG CAP PO SCH (21:02)
[2016-12-31] MEDS: FINASTERIDE 5 MG TAB PO SCH (21:02)
[2016-12-31] MEDS: TAMSULOSIN 0.4 MG CAP PO SCH (21:03)
[2016-12-31] MEDS: MOM 30ML SUSPENSION UDC PO PRN ×2 (21:04→23:24)
[2017-01-01] MEDS: IPRATROPIUM 0.5MG/ALBUTEROL 2.5MG INH SOL UD 3ML (DUONEB)(J7620) NEB SCH ×4 (01:56→20:00)
[2017-01-01 03:55] VITALS: BP 106/54
[2017-01-01] MEDS: SODIUM CHLORIDE 0.9% INJ 10 ML SYR IV SCH ×2 (06:05→17:40)
[2017-01-01 06:24] LABS: MEAN CORPUSCULAR HEMOGLOBIN 29.5 pg (27.0-33.0); MEAN CORPUSCULAR HGB CONC 31.8 g/dl (32.0-36.5); MEAN CORPUSCULAR VOLUME 92.5 fl (80.0-96.0); RED CELL DISTRIBUTION WIDTH 16.2 % (11.5-14.5); WHITE BLOOD COUNT 11.6 K/mm3 (4.0-10.0)
[2017-01-01 07:23] LABS: CALCIUM LEVEL 8.6 MG/DL (8.8-10.2); CREATININE FOR GFR 2.5 MG/DL (0.70-1.30); GLOMERULAR FILTRATION RATE 27.1 (>42); MAGNESIUM LEVEL 2.4 MG/DL (1.8-2.4)
[2017-01-01 08:10] VITALS: BP 139/75
[2017-01-01] MEDS: ADVAIR DISKUS 250/50 INH PWD INH SCH ×2 (08:15→20:31)
--- NOTE | 2017-01-01 08:33 | IPN ---
DATE: 01/01/2017 Mr. Morejon tells me that he is feeling better. He apparently was able to ambulate around the progressive care unit (PCU) with a walker again without major difficulty yesterday evening. There were no major events overnight. Blood pressure 106/54, heart rate from 70s to 80s, mostly sinus rhythm. He is afebrile. Saturation 94% on 2 liters of oxygen. Fluid balance yesterday was documented as slightly positive, but he has been consistently negative for the last several days. Weight is 77.1 kg, which on the scales he lost about 6 or 7 kg in his peak weight here. His jugular venous pressure does not appear elevated. When he sits, I certainly do not see extension above the clavicle. Lungs are relatively clear to auscultation with some diminished breath sounds over the bases but not very prominent. Heart examination shows regular rhythm. No gallop. Abdomen is obese but soft. There is still about 1+ peripheral edema and stasis dermatitis changes on his shins. Neurologically, he seems mildly confused today, but most of the answers are appropriate. LABORATORY: CBC reveals a WBC count 11.6, hemoglobin 11.1, hematocrit 34, platelet count 140,000. Basic metabolic panel though reveals significant deterioration since yesterday. Potassium went up to 6, BUN 67, creatinine 2.5, GFR 27, and glucose 160. ASSESSMENT AND PLAN: Mr. Morejon is a 71-year-old man with severe cardiomyopathy with severe left ventricular systolic dysfunction and congestive heart failure (CHF). We have been trying to diurese him in the hospital. I am afraid that there has been a little bit of overshot and the abnormalities on the blood work are related to that. Consequently, I am going to hold all of his diuretics and potassium today. I am going to repeat basic metabolic panel again at noon. I hope that this is all that will be necessary to correct his abnormalities. In the long run though it seems unlikely that we can make patient much better than he is at this point. I am wondering whether he will be able to go home and I understand that social service assistant are working on this issue. The patient tells me that he has been living with his grandson and his girlfriend. I am hoping that he will be able to go home within the next few days, but it will depend on home safety evaluation.
[2017-01-01] MEDS: PREGABALIN 100 MG CAP (LYRICA) PO SCH ×2 (09:00→21:30)
--- NOTE | 2017-01-01 09:02 | REP ---
CT HEAD WITHOUT CONTRAST: HISTORY: Myoclonus. COMPARISON: 12/23/2016. Areas of decreased attentuation are present in the periventricular white matter. This represents small vessel ischemic disease. There is no intraparenchymal hemorrhage, mass, or midline shift. The ventricular system and cortical sulci as well as subarachnoid space in the posterior fossa are dilated consistent with moderate volume loss. There is no extracerebral collection. There is no fracture. The visualized sinuses are clear. IMPRESSION: 1. Small vessel ischemic disease. 2. Moderate volume loss. Signed by Ferny Gómez MD 01/01/2017 09:29 A
--- NOTE | 2017-01-01 09:16 | IPN ---
DATE: 01/01/2017 Pierce feels well. Unfortunately, his laboratories are showing abnormalities that need to be addressed. The myoclonic jerking that he was experiencing the last few days, fortunately, for which I had consulted neurology and discussed the case with Dr. Barajas today, has resolved since yesterday and so we are cancelling that consult. He is feeling less short of breath and overall feeling better. PHYSICAL EXAMINATION: 102/54, pulse 74, respiratory rate 20, 94% oxygen saturation. GENERAL APPEARANCE: Resting comfortably. No distress. NECK: No jugular venous distention (JVD). LUNGS: Decreased breath sounds. HEART: Regular rhythm. ABDOMEN: Soft and nontender. EXTREMITIES: 1+ peripheral edema. LABORATORY DATA: White count 11.6, hemoglobin 11.1, platelets 140. Sodium 134, potassium 6, BUN 67, creatinine 2.5, glucose 160. IMPRESSION: 1. Acute renal failure superimposed on chronic kidney disease. Per Dr. Sebastian, I think that it is prerenal and his diuretics are being held. 2. Hypokalemia. Potassium has been held. Repeat laboratories ordered. May need Kayexalate if potassium goes any higher. 3. Myoclonic jerking. This has resolved. Cancel the consult with Dr. Barajas. 4. Type 2 diabetes. Declining fingersticks and coverage. 5. Chronic kidney disease, stage III. Creatinine is worse today. This is probably reflecting diuresis. DISPOSITION: Need to discuss with patient and family services (PFS) what plans are for his ultimately discharge. Discussed this with Dr. Sebastian today as well.
[2017-01-01] MEDS: RANOLAZINE 500 MG ER TAB PO SCH ×2 (09:37→21:30)
[2017-01-01] MEDS: SENOKOT S TAB PO SCH ×2 (09:37→21:30)
[2017-01-01] MEDS: CLOPIDOGREL 75 MG TAB PO SCH (09:37)
[2017-01-01] MEDS: guaiFENesin ER 600 MG TAB PO SCH ×2 (09:37→21:30)
[2017-01-01] MEDS: CARVedilol 3.125 MG TAB PO SCH (09:38)
[2017-01-01] MEDS: ASPIRIN 81 MG ENTERIC TAB PO SCH (09:38)
[2017-01-01] MEDS: FLUTICASONE PROP 0.05% NASAL SPRAY 16 GM (FLONASE) SCH ×2 (09:38→21:31)
[2017-01-01] MEDS: SODIUM CHLORIDE 0.9% INJ 10 ML SYR IV PRN (12:00)
[2017-01-01 12:25] VITALS: BP 94/66
[2017-01-01 12:45] LABS: CREATININE FOR GFR 2.52 MG/DL (0.70-1.30); GLOMERULAR FILTRATION RATE 26.8 (>42)
[2017-01-01 12:51] LABS: POTASSIUM SERUM 5.8 MEQ/L (3.5-5.1)
[2017-01-01 16:00] VITALS: BP 101/57
[2017-01-01 20:00] VITALS: BP 94/62
[2017-01-01] MEDS: TAMSULOSIN 0.4 MG CAP PO SCH (21:30)
[2017-01-01] MEDS: OMEPRAZOLE 20 MG CAP PO SCH (21:30)
[2017-01-01] MEDS: FINASTERIDE 5 MG TAB PO SCH (21:30)
[2017-01-01 23:59] VITALS: BP 89/52
[2017-01-02] MEDS: IPRATROPIUM 0.5MG/ALBUTEROL 2.5MG INH SOL UD 3ML (DUONEB)(J7620) NEB SCH ×4 (02:17→20:00)
[2017-01-02 04:45] VITALS: BP 88/54
[2017-01-02 05:11] LABS: MEAN CORPUSCULAR HEMOGLOBIN 29.8 pg (27.0-33.0); MEAN CORPUSCULAR VOLUME 92.9 fl (80.0-96.0); RED CELL DISTRIBUTION WIDTH 16.4 % (11.5-14.5); WHITE BLOOD COUNT 9.6 K/mm3 (4.0-10.0)
[2017-01-02] MEDS: SODIUM CHLORIDE 0.9% INJ 10 ML SYR IV SCH ×2 (05:38→17:23)
[2017-01-02 05:50] LABS: CALCIUM LEVEL 8.9 MG/DL (8.8-10.2); CREATININE FOR GFR 2.79 MG/DL (0.70-1.30); GLOMERULAR FILTRATION RATE 23.9 (>42); MAGNESIUM LEVEL 2.7 MG/DL (1.8-2.4)
[2017-01-02 06:00] LABS: POTASSIUM SERUM 5.7 MEQ/L (3.5-5.1)
[2017-01-02] MEDS: ADVAIR DISKUS 250/50 INH PWD INH SCH ×2 (07:08→20:35)
[2017-01-02 08:00] VITALS: BP 109/56
--- NOTE | 2017-01-02 08:45 | IPN ---
DATE: 01/02/2017 After discontinuation of diuretics yesterday the patient did not have any specific events. He was able to sleep and when I entered the room he actually rested comfortably. No specific complaints. Blood pressure 88/54 early this morning. Heart rate remains in 70s and sinus rhythm. Saturation is in high 90s on 2 liters of oxygen by nasal cannula. His fluid balance yesterday was documented at 400 mL positive and he made about 200 mL of urine, but I am afraid that the documentation is probably not quite accurate. His weight this morning is 78.5 kg. Jugular venous pulse (JVP) still looks elevated. Lungs are relatively clear to auscultation. Heart exam somewhat muffled heart sounds, but regular rhythm. There is a murmur at the apex, unchanged. No gallop. Abdomen is obese. There is still about 1+ edema. Laboratory corona, hemoglobin 11.1, hematocrit 34, platelet count 126,000. Basic metabolic panel was potassium 5.7, BUN 75, creatinine 2.8, glucose 123. ASSESSMENT/PLAN: Mr. Morejon is a 71-year-old man who has severe cardiomyopathy and presented with a fever and chills. His infection problem has been corrected, but now we struggle with control of his congestive heart failure. He was grossly volume overloaded and was slowly diuresed, but I am afraid we over diuresed him and yesterday all his diuretics were stopped. Unfortunately in spite of it, he continues to have declining renal function. At this point I would continue holding diuretics for at least one more day. I think that it would be reasonable to get a renal consult involved. His long-term prognosis is certainly poor, but I am afraid that the acute renal failure is jeopardizing his discharge for which I was hoping in the near future.
[2017-01-02] MEDS: RANOLAZINE 500 MG ER TAB PO SCH ×2 (09:18→20:59)
[2017-01-02] MEDS: CARVedilol 3.125 MG TAB PO SCH (09:18)
[2017-01-02] MEDS: CLOPIDOGREL 75 MG TAB PO SCH (09:18)
[2017-01-02] MEDS: PREGABALIN 100 MG CAP (LYRICA) PO SCH ×2 (09:19→21:00)
[2017-01-02] MEDS: DIGOXIN 0.125 MG TAB PO SCH (09:19)
[2017-01-02] MEDS: metOLazone 2.5 MG TAB PO SCH (09:19)
[2017-01-02] MEDS: ASPIRIN 81 MG ENTERIC TAB PO SCH (09:19)
[2017-01-02] MEDS: guaiFENesin ER 600 MG TAB PO SCH ×2 (09:20→21:00)
[2017-01-02] MEDS: SENOKOT S TAB PO SCH ×2 (09:20→21:00)
[2017-01-02] MEDS: FLUTICASONE PROP 0.05% NASAL SPRAY 16 GM (FLONASE) SCH ×2 (09:21→21:00)
[2017-01-02 12:00] VITALS: BP 119/66
--- NOTE | 2017-01-02 13:40 | IPN ---
DATE: 01/02/2017 Pierce is seen in progressive care unit (PCU). He is being monitored for some acute superimposed on chronic renal failure secondary to successive diuresis. Renal function has not returned to baseline despite holding his diuretic. Potassium level is still elevated, though it is down a little bit from yesterday. He is not having any arrhythmia referable to this. Overall, he feels about the same as yesterday. PHYSICAL EXAMINATION: 119/66, pulse 74, respiratory rate 20, 96% oxygen saturation on 2 liters. GENERAL APPEARANCE: Resting comfortably, no distress. No jugular venous distention (JVD). LUNGS: Decreased breath sounds. HEART: Regular rate and rhythm. /6 systolic ejection murmur. ABDOMEN: Soft, nontender, no masses. EXTREMITIES: 1+ peripheral edema. IMPRESSION: 1. Acute renal failure, stage III chronic kidney disease. Continue holding his diuretics. Daily laboratories have been ordered. 2. Hyperkalemia. Potassium is still on hold. His potassium is a little better today. 3. Type 2 diabetes. He is declining fingersticks. 4. Dilated cardiomyopathy with congestive heart failure (CHF). Per Dr. Sebastian. At this point, he will be here through the weekend.
[2017-01-02 16:00] VITALS: BP 122/70
[2017-01-02] MEDS: SODIUM CHLORIDE 0.9% INJ 10 ML SYR IV PRN (17:25)
[2017-01-02 20:00] VITALS: BP 98/65
[2017-01-02] MEDS: OMEPRAZOLE 20 MG CAP PO SCH (21:00)
[2017-01-02] MEDS: TAMSULOSIN 0.4 MG CAP PO SCH (21:00)
[2017-01-02] MEDS: FINASTERIDE 5 MG TAB PO SCH (21:00)
[2017-01-03] VITALS (7 sets, daily range): BP systolic 69–140; BP diastolic 50–69
[2017-01-03] MEDS: IPRATROPIUM 0.5MG/ALBUTEROL 2.5MG INH SOL UD 3ML (DUONEB)(J7620) NEB SCH ×4 (02:00→20:00)
[2017-01-03] MEDS: SODIUM CHLORIDE 0.9% INJ 10 ML SYR IV SCH ×2 (05:14→18:40)
[2017-01-03 05:39] LABS: MEAN CORPUSCULAR HEMOGLOBIN 30.2 pg (27.0-33.0); MEAN CORPUSCULAR HGB CONC 31.5 g/dl (32.0-36.5); MEAN CORPUSCULAR VOLUME 95.8 fl (80.0-96.0); RED CELL DISTRIBUTION WIDTH 16.4 % (11.5-14.5); WHITE BLOOD COUNT 10.6 K/mm3 (4.0-10.0)
[2017-01-03 05:56] LABS: CALCIUM LEVEL 8.4 MG/DL (8.8-10.2); CREATININE FOR GFR 2.67 MG/DL (0.70-1.30); GLOMERULAR FILTRATION RATE 25.1 (>42); MAGNESIUM LEVEL 2.7 MG/DL (1.8-2.4)
[2017-01-03 06:20] LABS: POTASSIUM SERUM 5.3 MEQ/L (3.5-5.1)
[2017-01-03] MEDS: ADVAIR DISKUS 250/50 INH PWD INH SCH ×2 (07:04→20:22)
[2017-01-03] MEDS: PREGABALIN 100 MG CAP (LYRICA) PO SCH ×2 (09:00→20:43)
[2017-01-03] MEDS: SENOKOT S TAB PO SCH ×2 (09:48→20:42)
[2017-01-03] MEDS: CLOPIDOGREL 75 MG TAB PO SCH (09:48)
[2017-01-03] MEDS: RANOLAZINE 500 MG ER TAB PO SCH ×2 (09:48→20:42)
[2017-01-03] MEDS: FLUTICASONE PROP 0.05% NASAL SPRAY 16 GM (FLONASE) SCH ×2 (09:48→20:44)
[2017-01-03] MEDS: guaiFENesin ER 600 MG TAB PO SCH ×2 (09:48→20:42)
[2017-01-03] MEDS: ASPIRIN 81 MG ENTERIC TAB PO SCH (09:48)
[2017-01-03] MEDS: CARVedilol 3.125 MG TAB PO SCH (09:49)
--- NOTE | 2017-01-03 11:03 | IPN ---
DATE: 01/03/2017 Pierce is about the same as yesterday. His renal function and hyperkalemia are marginally better with withholding his diuretics. He was a little dizzy yesterday. At one point, systolic pressure got down to 69 when he stood up at 4:00 in the morning; it is 140 now. PHYSICAL EXAMINATION: Blood pressure 140/65, pulse 76, respiratory rate 20, 98% oxygen saturation on 2 liters. Chronically ill appearing. Lungs have decreased breath sounds. Heart: Regular rate and rhythm, 1/6 systolic ejection murmur. Abdomen: Soft, nontender. No masses. 1+ peripheral edema. Nonfocal neurologic exam. PLAN: We continue to hold his diuretics. Acute renal failure and hyperkalemia are improving with this. His dilated cardiomyopathy is being treated by Dr. Sebastian. Plan is to continue to watch him off of diuretics. He will be in the hospital for several more days.
--- NOTE | 2017-01-03 12:51 | IPN ---
DATE: 01/03/2017 Mr. Morejon feels comfortable. He denies any symptoms when he is sedentary in bed or in chair. He was able to ambulate again, but he says that he did not go very far yesterday. Vital signs: Blood pressure 140/65, heart rate is in 70s, sinus rhythm. He is afebrile. Saturation 98% on 2 liters of oxygen. His fluid balance yesterday was documented about negative 150, even though his weight is slightly up at 79.1. His jugular venous pressure (JVP) is somewhat elevated, about 3 or 4 above clavicle. Lungs: Diminished breath sounds over both, about once-third of lung schafer but no wheezes and no crackles. Heart Exam: Regular rhythm. There is an apical murmur, unchanged. Abdomen is soft. There is still very prominent edema to essentially his knees. LABORATORY: Hemoglobin 11.3, hematocrit 35, platelet count 133,000. Basic metabolic panel reveals potassium 5.3, BUN 77, creatinine 2.7 and magnesium 2.7 as well, GFR calculated 25 ASSESSMENT AND PLAN: Mr. Morejon is a 71-year-old man who has severe cardiomyopathy with severe left ventricular (LV) systolic dysfunction. Even though he presented initially with infectious problem, after its control, he now struggles to control congestive heart failure. Unfortunately, I think we somewhat over diuresed the patient and he developed acute on chronic renal failure. Today, finally, his creatinine is slightly better than yesterday, and I am hoping by tomorrow we will see further improvement. I am going to wait with reinstitution of diuretics. Ultimately, I am afraid that we will not be able to accomplish good volume control, and he probably will be discharged with still volume overloaded state. His functional status seems to be reasonable, and he seems to be comfortable with his sedentary life and consequently, I believe that keeping in the hospital much longer does not make much sense. Hopefully, when we see improvement in renal function and can reestablish some degree of diuretic dosing, will talk about discharging the patient either home or some form of assisted living or fpc.
[2017-01-03] MEDS: OMEPRAZOLE 20 MG CAP PO SCH (20:42)
[2017-01-03] MEDS: TAMSULOSIN 0.4 MG CAP PO SCH (20:42)
[2017-01-03] MEDS: FINASTERIDE 5 MG TAB PO SCH (20:43)
[2017-01-04] MEDS: IPRATROPIUM 0.5MG/ALBUTEROL 2.5MG INH SOL UD 3ML (DUONEB)(J7620) NEB SCH ×4 (02:00→20:00)
[2017-01-04 04:00] VITALS: BP 113/57
[2017-01-04] MEDS: SODIUM CHLORIDE 0.9% INJ 10 ML SYR IV SCH ×2 (06:18→17:43)
[2017-01-04 06:48] LABS: MEAN CORPUSCULAR HEMOGLOBIN 29.8 pg (27.0-33.0); MEAN CORPUSCULAR HGB CONC 31.4 g/dl (32.0-36.5); MEAN CORPUSCULAR VOLUME 95.1 fl (80.0-96.0); RED CELL DISTRIBUTION WIDTH 16.5 % (11.5-14.5); WHITE BLOOD COUNT 8.4 K/mm3 (4.0-10.0)
[2017-01-04 06:59] LABS: CALCIUM LEVEL 8.5 MG/DL (8.8-10.2); CREATININE FOR GFR 2.37 MG/DL (0.70-1.30); GLOMERULAR FILTRATION RATE 28.8 (>42); MAGNESIUM LEVEL 2.6 MG/DL (1.8-2.4); POTASSIUM SERUM 4.5 MEQ/L (3.5-5.1)
[2017-01-04] MEDS: ADVAIR DISKUS 250/50 INH PWD INH SCH ×2 (07:05→21:04)
[2017-01-04 08:00] VITALS: BP 103/61; PULSE 73
[2017-01-04] MEDS: guaiFENesin ER 600 MG TAB PO SCH ×2 (08:43→21:32)
[2017-01-04] MEDS: ASPIRIN 81 MG ENTERIC TAB PO SCH (08:43)
[2017-01-04] MEDS: CLOPIDOGREL 75 MG TAB PO SCH (08:44)
[2017-01-04] MEDS: PREGABALIN 100 MG CAP (LYRICA) PO SCH ×2 (08:44→21:31)
[2017-01-04] MEDS: SENOKOT S TAB PO SCH ×2 (08:44→21:30)
[2017-01-04] MEDS: CARVedilol 3.125 MG TAB PO SCH (08:44)
[2017-01-04] MEDS: metOLazone 2.5 MG TAB PO SCH (08:44)
[2017-01-04] MEDS: FLUTICASONE PROP 0.05% NASAL SPRAY 16 GM (FLONASE) SCH ×2 (08:45→21:32)
[2017-01-04] MEDS: RANOLAZINE 500 MG ER TAB PO SCH (08:48)
--- NOTE | 2017-01-04 10:16 | IPN ---
DATE: 01/04/2017 Pierce is seen in progressive care unit (PCU). Stable from yesterday, on a prolonged hospitalization, at which point, we are currently at a stage for holding diuretics, try to improve his volume status. Dr. Sebastian's help is greatly appreciated. I agree with assessment. It is not like this gentleman is ever going to be euvolemic. Attempts to optimize his volume status leads to overdiuresis and attempts to restore volume leads to worsening of his heart failure. He lives alone. He plans to move in with his son in [place]. We discussed the possibility of assisted living today, which he rejected. PHYSICAL EXAMINATION: Vital signs stable. Oxygen saturation 98%. No jugular venous distention (JVD). Lungs: Decreased breath sounds. Heart: Regular rate and rhythm. 1/6 systolic ejection murmur. 1+ peripheral edema. LABORATORIES: CBC stable. Creatinine is 2.3, which is marginally improved. BUN 75. Potassium 4.5. IMPRESSION: At this point, we are continuing to hold his diuretics. Dr. Sebastian is involved with his care. Tomorrow patient and family services (PFS) needs to get involved. He could probably be discharged tomorrow if we can workout arrangements with his son. I am not sure if he has an outpatient primary care provider. We could establish this for him as well as he will need close outpatient followup. He tends to not manage his challenging cardiac condition.
[2017-01-04 12:00] VITALS: BP 105/63; PULSE 78
--- NOTE | 2017-01-04 14:18 | IPN ---
DATE: 01/04/2017 HISTORY OF PRESENT ILLNESS: Mr. Morejon unfortunately remains about the same. He is not dyspneic at rest but does get short of breath with minimal activity. He still has a lot of peripheral edema and today he complains about pain in his lower extremities. Denies any chest discomfort. Vital signs: Blood pressure 105/63. Heart rate is in 70s. He is afebrile. Saturation 97% on 2 liters oxygen. Fluid balance yesterday was documented slightly positive of 500 mL, probably not very accurate. Weight is 79.2 kg, which is essentially same as yesterday. His jugular venous pulse (JVP) is quite high, at least 4-5 cm above clavicle. Lungs are clear to auscultation but for diminished breath sounds over both bases. Heart exam regular rhythm. No gallop, rub or murmur. Abdomen is soft, nontender. There is about 2+ edema to mid shins. There is some redness to his shins. Laboratory corona, basic metabolic panel: Potassium 4.5, BUN 75, creatinine 2.4 and GFR is 29. Glucose 125. CBC: Hemoglobin 10.7, hematocrit 34, platelet count 134,000. ASSESSMENT AND PLAN: Mr. Morejon is a 71-year-old man with severe ischemic cardiomyopathy and resulting congestive heart failure. There is concomitant mitral valve disease. Unfortunately, he was very difficult to diurese to start with and probably is somewhat overshot with diuretics. Consequently, he developed acute on chronic renal failure, but fortunately the renal function is improving, but he remains in volume overloaded state. I do plan to increase the dose of diuretics starting tomorrow for the time being that the creatinine is still quite high. I was hoping to get him home in the near future, but unfortunately we need to diurese him at least somewhat more. Remaining medications unchanged. I am going to discontinue Ranexa because he does not have any anginal symptoms. LOGAN
[2017-01-04 16:00] VITALS: BP 103/66; PULSE 69
[2017-01-04 19:36] VITALS: BP 91/55
[2017-01-04] MEDS: FINASTERIDE 5 MG TAB PO SCH (21:31)
[2017-01-04] MEDS: TAMSULOSIN 0.4 MG CAP PO SCH (21:31)
[2017-01-04] MEDS: OMEPRAZOLE 20 MG CAP PO SCH (21:31)
[2017-01-04 23:59] VITALS: BP 109/63
[2017-01-05] MEDS: IPRATROPIUM 0.5MG/ALBUTEROL 2.5MG INH SOL UD 3ML (DUONEB)(J7620) NEB SCH ×4 (01:40→19:32)
[2017-01-05 04:45] VITALS: BP 128/69
[2017-01-05] MEDS: SODIUM CHLORIDE 0.9% INJ 10 ML SYR IV SCH ×2 (05:46→18:23)
[2017-01-05 05:47] LABS: MEAN CORPUSCULAR HEMOGLOBIN 30.5 pg (27.0-33.0); MEAN CORPUSCULAR HGB CONC 31.9 g/dl (32.0-36.5); MEAN CORPUSCULAR VOLUME 95.6 fl (80.0-96.0); RED CELL DISTRIBUTION WIDTH 16.7 % (11.5-14.5); WHITE BLOOD COUNT 8.6 K/mm3 (4.0-10.0)
[2017-01-05 06:02] LABS: CALCIUM LEVEL 8.3 MG/DL (8.8-10.2); CREATININE FOR GFR 2.03 MG/DL (0.70-1.30); GLOMERULAR FILTRATION RATE 34.4 (>42); MAGNESIUM LEVEL 2.6 MG/DL (1.8-2.4); POTASSIUM SERUM 4.2 MEQ/L (3.5-5.1)
[2017-01-05 07:10] VITALS: BP 116/58
[2017-01-05] MEDS: ADVAIR DISKUS 250/50 INH PWD INH SCH ×2 (08:20→19:32)
[2017-01-05] MEDS: PREGABALIN 100 MG CAP (LYRICA) PO SCH ×2 (09:00→20:37)
--- NOTE | 2017-01-05 09:33 | IPN ---
DATE: 01/05/2017 Mr. Morejon feels a little bit better. He tells me that he is a little short of breath and overall there has been some improvement. He is working with occupational therapy and physical therapy. He still gets short of breath with minimal activity. Denies any chest pain and no resting symptoms. Blood pressure 128/69. Heart rate is in 80s. Afebrile. Saturation 92% on 2 liters. Weight 79.7, which s not much changed compared to five days ago. His jugular venous pulse (JVP) is still very high. Lungs are clear to auscultation but for diminished breath sounds over both bases. Heart exam revealed a regular rhythm. No gallop or rub. Abdomen is obese, but I do not appreciate any shifting dullness. There is still 1 to 2+ edema to his knees. Laboratory-corona, hemoglobin is 11.1, hematocrit 34, platelet count 121. Basic metabolic panel: potassium 4.2, BUN 60, creatinine 2, for GFR of 34 and glucose 124. ASSESSMENT AND PLAN: Mr. Morejon is a 71-year-old man with severe ischemic cardiomyopathy and acute on chronic congestive heart failure. Currently exacerbated by acute on chronic renal failure. He seems to be clinically slowly improving, but on the other hand he is moving in the wrong direction as the weight is slowly climbing. I will give him a relatively low dose of torsemide, just 40 mg on top of his chronic Zaroxolyn, attempting to accomplish at least a somewhat negative balance. I am not convinced that his condition will get much better, but I think we should attempt to get him at least close to a euvolemic status before he can go home.
[2017-01-05] MEDS: DIGOXIN 0.125 MG TAB PO SCH (09:48)
[2017-01-05] MEDS: SENOKOT S TAB PO SCH ×2 (09:48→20:37)
[2017-01-05] MEDS: CLOPIDOGREL 75 MG TAB PO SCH (09:48)
[2017-01-05] MEDS: guaiFENesin ER 600 MG TAB PO SCH ×2 (09:48→20:37)
[2017-01-05] MEDS: TORSEMIDE 20 MG TAB PO SCH (09:48)
[2017-01-05] MEDS: ASPIRIN 81 MG ENTERIC TAB PO SCH (09:48)
[2017-01-05] MEDS: CARVedilol 3.125 MG TAB PO SCH (09:49)
[2017-01-05] MEDS: FLUTICASONE PROP 0.05% NASAL SPRAY 16 GM (FLONASE) SCH ×2 (09:49→23:33)
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
[2017-01-05 11:15] VITALS: BP 116/70
[2017-01-05 14:00] VITALS: BP 109/56
[2017-01-05] MEDS: TAMSULOSIN 0.4 MG CAP PO SCH (20:37)
[2017-01-05] MEDS: OMEPRAZOLE 20 MG CAP PO SCH (20:37)
[2017-01-05] MEDS: FINASTERIDE 5 MG TAB PO SCH (20:37)
[2017-01-05 22:00] VITALS: BP 124/72
[2017-01-06] MEDS: IPRATROPIUM 0.5MG/ALBUTEROL 2.5MG INH SOL UD 3ML (DUONEB)(J7620) NEB SCH ×3 (02:00→14:00)
[2017-01-06 04:55] VITALS: BP 137/90
[2017-01-06 05:35] VITALS: BP 117/71
[2017-01-06] MEDS: SODIUM CHLORIDE 0.9% INJ 10 ML SYR IV SCH (05:35)
[2017-01-06 05:58] LABS: MEAN CORPUSCULAR HEMOGLOBIN 29.5 pg (27.0-33.0); MEAN CORPUSCULAR HGB CONC 31.1 g/dl (32.0-36.5); MEAN CORPUSCULAR VOLUME 94.9 fl (80.0-96.0); RED CELL DISTRIBUTION WIDTH 16.3 % (11.5-14.5); WHITE BLOOD COUNT 8.2 K/mm3 (4.0-10.0)
[2017-01-06 06:23] LABS: CALCIUM LEVEL 8.4 MG/DL (8.8-10.2); CREATININE FOR GFR 1.91 MG/DL (0.70-1.30); POTASSIUM SERUM 3.3 MEQ/L (3.5-5.1)
[2017-01-06] MEDS: ADVAIR DISKUS 250/50 INH PWD INH SCH (07:35)
[2017-01-06] MEDS ORDERED: POTASSIUM CHLORIDE 10 MEQ SR TABLET PO ONE (08:00)
[2017-01-06] MEDS: PREGABALIN 100 MG CAP (LYRICA) PO SCH (09:00)
[2017-01-06] MEDS: SENOKOT S TAB PO SCH (09:16)
[2017-01-06] MEDS: FLUTICASONE PROP 0.05% NASAL SPRAY 16 GM (FLONASE) SCH (09:16)
[2017-01-06] MEDS: CLOPIDOGREL 75 MG TAB PO SCH (09:18)
[2017-01-06] MEDS: metOLazone 2.5 MG TAB PO SCH (09:18)
[2017-01-06] MEDS: guaiFENesin ER 600 MG TAB PO SCH (09:19)
[2017-01-06 09:20] VITALS: BP 117/71
[2017-01-06] MEDS: TORSEMIDE 20 MG TAB PO SCH (09:20)
[2017-01-06] MEDS: ASPIRIN 81 MG ENTERIC TAB PO SCH (09:20)
[2017-01-06] MEDS: CARVedilol 3.125 MG TAB PO SCH (09:20)
[2017-01-06 14:00] VITALS: BP 111/68
[2017-01-06] MEDS: MIRALAX *UNIT DOSE* 17GM PACKET PO PRN (14:19)
[2017-01-06] MEDS ORDERED: METO25TA PO (14:50)
[2017-01-06] MEDS ORDERED: DEMA20TA6 PO (14:50)
[2017-01-06] MEDS ORDERED: K-TA10TA2 PO (14:50)
[2017-01-06] MEDS ORDERED: CARV3.12 PO (14:50)
[2017-01-06] MEDS ORDERED: DIGO0.12 PO (14:50)
--- NOTE | 2017-01-07 12:43 | DSES ---
DATE OF ADMISSION: 11/28/2016 DATE OF DISCHARGE: 01/06/2017 CHART CALCULATOR: Dr. Sebastian PRIMARY CARE PROVIDER: Liliya Newman NP FINAL DIAGNOSES: 1. Acute congestive heart failure exacerbation with systolic dysfunction, ejection fraction (EF) of 20% to 25%. 2. Questionable community-acquired bacterial pneumonia. 3. Methicillin-sensitive Staphylococcus aureus (MSSA) bacteremia secondary to IV phlebitis. 4. Elevated digoxin level. 5. Abdominal wall hematoma. 6. History of ischemic cardiomyopathy with coronary artery disease. 7. Diabetes, poorly compliant. 8. Gastroesophageal reflux disease (GERD). 9. Benign prostatic hypertrophy (BPH). 10. Acute on chronic renal insufficiency. 11. Hyperkalemia. 12. Obesity. 13. History of chronic obstructive pulmonary disease (COPD). 14. Chronic deconditioning. HISTORY OF PRESENT ILLNESS: The patient is a 71-year-old gentleman with underlying medical history of congestive heart failure (CHF) with systolic dysfunction, ejection fraction (EF) of 20% to 25%, chronic hypoxic respiratory failure, peripheral neuropathy, obstructive uropathy in the past seen by urologist, chronic kidney disease (CKD), coronary artery disease, venous stasis dermatitis lower extremities, morbid obesity complicating medical care, ischemic cardiomyopathy, pulmonary hypertension, benign prostatic hypertrophy (BPH), diabetes, who presented to the emergency room having 5-7 days of shortness of breath, dyspnea on exertion, orthopnea and lower extremity edema, questionable compliance with diuretics at home. Denies any substernal chest pain. Denies fevers, chills, rigors, productive cough. The patient had a nonproductive cough. He stated that he gets shortness of breath doing the simple task of walking. The patient reported regular bowel movements. Denies any bleeding, melena, is able to void. HOSPITAL COURSE: The patient was admitted to the hospital, initially treated with IV antibiotics for possible pneumonia. The patient was diuresed. Kidney function was monitored. Strict intake and output, fluid restriction. Blood culture grew methicillin-sensitive Staphylococcus aureus (MSSA), suspected IV phlebitis. Infectious disease was consulted. The patient had an extended course of antibiotics and subsequently antibiotics were discontinued by infectious disease, Dr. Batista. Cardiology was consulted for assistance with diuretics. The patient's kidney function was monitored. The patient's digoxin level has also been adjusted given change in kidney function. Further digoxin levels appreciated. Furthermore, hospital course was complicated by abdominal hematoma, likely secondary to aspirin, Plavix and heparin subcutaneous. Heparin subcutaneous, aspirin and Plavix were temporarily held. Later, aspirin and Plavix was restarted. Telemetry was initially observed. The patient was encouraged to take insulin but has refused. The glucose has been monitored closely while the patient was here, within tolerable limits. Proton pump inhibitor (PPI) was given for gastroesophageal reflux disease (GERD). Benign prostatic hypertrophy (BPH) medication was given. The patient's hospital stay was further complicated with acute on chronic renal failure secondary to diuretics. Diuresis was held for a few days. Potassium was monitored. Currently, the patient's kidney function returning to baseline. Physical therapy was done. Patient and family services (PFS) was consulted for further arrangement of home care. Case was discussed with cardiology, Dr. Sebastian. The patient is okay for discharge for further care as outpatient. The patient currently tolerating oral and would like to be discharged. He has refused rehabilitation as well as has refused fdc placement. Adult Protective Services was also involved. VITAL SIGNS: Temperature 97, pulse 90, respirations 18, blood pressure 111/68, pulse oximetry 95% on room air. LABORATORY DATA: WBC 8.2, hemoglobin and hematocrit 11.1/35.6, platelets 133. Chemistry: Sodium 135, potassium 3.3, chloride 91, bicarbonate 37, BUN 69, creatinine 1.9. DISCHARGE MEDICATIONS: - Coreg 3.125 mg by mouth daily - digoxin 0.125 by mouth every 72 hours - metolazone 2.5 mg by mouth every 48 hours - potassium chloride 30 mEq by mouth daily - torsemide 40 mg by mouth daily - aspirin 81 mg by mouth daily - Plavix 75 mg by mouth daily - finasteride 5 mg by mouth at bedtime - Flonase nasal spray twice a day - lidocaine ointment topically as needed - omeprazole 40 mg by mouth at bedtime - Lyrica 200 mg by mouth three times a day - Ranexa 500 mg by mouth twice a day - Senna Plus one tablet by mouth twice a day - Flomax 0.4 mg by mouth at bedtime DISCHARGE INSTRUCTIONS: The patient is instructed to followup with primary care provider in seven days and packer operator automatic in five days. Followup basic metabolic panel as outpatient. Home with home health. Encourage fluid restriction 1.8 liters. Encourage ambulation, physical therapy. Return to the hospital if symptoms worsen. Leg elevation encouraged. The patient is poorly compliant with multiple comorbidities and severe ischemic cardiomyopathy, poor overall prognosis.
== END 2017-01-06 18:20 | disposition home health service (06) | DRG 291 ==
LOC: EDBD 15:03 → M ED 18:11 → M ED INP 18:28 → M PCU 20:04 → M MSPAV 01-05 11:12
PROVIDERS: ADMIT Hospitalist; ATTEND Hospitalist
PROC: 30253N1 (ICD-10-PCS; 2016-12-09)
PROC: 30253R1 (ICD-10-PCS; 2016-12-09)
PROC: 05HB33Z Insertion of Infusion Device into Right Basilic Vein, Percutaneous Approach (ICD-10-PCS; principal; 2016-12-17)
DX: I13.0 Hypertensive heart and chronic kidney disease with heart failure and stage 1 through stage 4 chronic kidney disease, or unspecified chronic kidney disease (principal); I50.43 Acute on chronic combined systolic (congestive) and diastolic (congestive) heart failure; J18.9 Pneumonia, unspecified organism; J96.11 Chronic respiratory failure with hypoxia; L97.929 Non-pressure chronic ulcer of unspecified part of left lower leg with unspecified severity; L97.919 Non-pressure chronic ulcer of unspecified part of right lower leg with unspecified severity; R78.81 Bacteremia; T82.7XXA Infection and inflammatory reaction due to other cardiac and vascular devices, implants and grafts, initial encounter; E87.1 Hypo-osmolality and hyponatremia; G62.9 Polyneuropathy, unspecified; N18.9 Chronic kidney disease, unspecified; I25.10 Atherosclerotic heart disease of native coronary artery without angina pectoris; Z66 Do not resuscitate; I87.2 Venous insufficiency (chronic) (peripheral); E66.9 Obesity, unspecified; M79.81 Nontraumatic hematoma of soft tissue; I25.5 Ischemic cardiomyopathy; J44.9 Chronic obstructive pulmonary disease, unspecified; E87.5 Hyperkalemia; D63.1 Anemia in chronic kidney disease; I27.2 Other secondary pulmonary hypertension; G89.4 Chronic pain syndrome; N40.0 Benign prostatic hyperplasia without lower urinary tract symptoms; B95.61 Methicillin susceptible Staphylococcus aureus infection as the cause of diseases classified elsewhere; K59.00 Constipation, unspecified; E11.9 Type 2 diabetes mellitus without complications; G25.3 Myoclonus; Z95.810 Presence of automatic (implantable) cardiac defibrillator; Z96.642 Presence of left artificial hip joint; Z79.82 Long term (current) use of aspirin; Z79.02 Long term (current) use of antithrombotics/antiplatelets; Z79.899 Other long term (current) drug therapy; Z99.81 Dependence on supplemental oxygen; Z68.31 Body mass index [BMI] 31.0-31.9, adult; Z91.14 Patient's other noncompliance with medication regimen; Y83.1 Surgical operation with implant of artificial internal device as the cause of abnormal reaction of the patient, or of later complication, without mention of misadventure at the time of the procedure

== ENCOUNTER 2017-07-08 10:41 | Inpatient (IN) | payer MEDICARE, MEDICAID ==
[~2017-07-08] VITALS: Ht 157.5 cm; Wt 67.2 kg
[2017-07-08] MEDS: CARVedilol 3.125 MG TAB PO SCH (00:19)
[~2017-07-08 10:41] MED LIST changes: +ASPI1TAB PO; +FLON1SPR; +FLUTISP; +K-TA10TA2 PO; +LIDO1OIN2 TOP; +METO25TA PO; +PLAV1TAB2 PO; -PLAV75TA38 PO; +RANO5TAB PO
[2017-07-08] MEDS ORDERED: ASPIRIN 81 MG CHEW TABLET PO ONE (12:30)
[2017-07-08 12:34] LABS: BASO # 0.1 10^3/uL (0.0-0.2); BASO % 0.7 % (0.0-1.0); EOS # 0.2 10^3/uL (0.0-0.50); EOS % 2.1 % (0.0-3.0); IMMATURE GRANULOCYTE % 0.7 % (0-0); LYMPH # 2.8 10^3/uL (1.5-4.5); LYMPH % 24.2 % (24.0-44.0); MEAN CORPUSCULAR HEMOGLOBIN 29.5 pg (27.0-33.0); MEAN CORPUSCULAR HGB CONC 31.7 g/dl (32.0-36.5); MEAN CORPUSCULAR VOLUME 92.9 fl (80.0-96.0); MONO % 8.7 % (0.0-5.0); NEUTROPHILS # 7.4 10^3/uL (1.8-7.7); NEUTROPHILS % 63.6 % (36.0-66.0); PLATELET COUNT, AUTOMATED 195 10^3/uL (150-450); RED CELL DISTRIBUTION WIDTH 16.8 % (11.5-14.5); WHITE BLOOD COUNT 11.7 10^3/uL (4.0-10.0)
[2017-07-08 12:44] LABS: ALBUMIN 3.3 GM/DL (3.2-5.2); ALBUMIN/GLOBULIN RATIO 0.83 (1.00-1.93); BILIRUBIN,DIRECT 0.9 MG/DL (0.0-0.2); BILIRUBIN,TOTAL 2.2 MG/DL (0.2-1.0); CALCIUM LEVEL 8.9 MG/DL (8.8-10.2); CREATININE FOR GFR 2.05 MG/DL (0.70-1.30); GLOMERULAR FILTRATION RATE 34.1 (>42); POTASSIUM SERUM 3.7 MEQ/L (3.5-5.1); TOTAL PROTEIN 7.3 GM/DL (6.4-8.2)
[2017-07-08 13:02] LABS: ABG BASE EXCESS 0.2 (-2.0-2.0); ABG HCO3 23.1 MEQ/L (22.0-26.0); ABG PARTIAL PRESSURE CO2 32.1 mmHg (35.0-45.0); ABG PARTIAL PRESSURE O2 76.6 mmHg (75.0-100.0); ABG STANDARD HCO3 24.6 MEQ/L (22.0-26.0); ABG TOTAL CO2 24.1 MEQ/L (23.0-31.0); ABG pH (ARTERIAL) 7.475 UNITS (7.350-7.450)
[2017-07-08 13:29] LABS: DIGOXIN LEVEL 0.1 NG/ML (0.5-2.0)
--- NOTE | 2017-07-08 14:02 | REP ---
Chest two views HISTORY: Chest pain Comparison: 12/20/2016 Increased density is present in the right lower lobe consistent with atelectasis or infiltrate. A small right pleural effusion is present decreased compared to the previous study. The left lung is clear. The heart is upper limits of normal in size. The pulmonary vasculature is normal in appearance. The bony structure is intact. A cardiac pacemaker is present. IMPRESSION: 1. Right lower lobe atelectasis or infiltrate. 2. Small right pleural effusion decreased compared to the previous study. Signed by Ferny Gómez MD 07/08/2017 01:54 P
[2017-07-08 17:01] VITALS: O2SAT 96
[2017-07-08] MEDS ORDERED: ACETAMINOPHEN TAB 650MG DOSE (2X325MG) PO PRN (17:45)
[2017-07-08] MEDS ORDERED: ONDANSETRON 4MG/2ML VIAL (J2405) IV PRN (17:45)
[2017-07-08] MEDS ORDERED: OMEP40CA2 PO (17:51)
[2017-07-08] MEDS ORDERED: POTA20TA PO (17:51)
[2017-07-08] MEDS ORDERED: POTA10CA PO (17:51)
[2017-07-08] MEDS ORDERED: CARV3.12 PO (17:51)
[2017-07-08] MEDS ORDERED: CYCL5TAB PO (17:51)
[2017-07-08] MEDS ORDERED: DIGO0.12 PO (17:51)
[2017-07-08] MEDS ORDERED: HYDR-3716 PO (17:51)
[2017-07-08] MEDS ORDERED: METO25TA PO (17:57)
[2017-07-08] MEDS ORDERED: CELE10TA PO (17:57)
[2017-07-08] MEDS ORDERED: TORS20TA2 PO (17:58)
[2017-07-08] MEDS ORDERED: PATIENT COMMENT (18:00)
[2017-07-08] MEDS: FUROSEMIDE 40 MG/4 ML VIAL (J1940) IV SCH (18:58)
[2017-07-08] MEDS: HEPARIN SOD (PORCINE) 5000 UNITS/ML VIAL SC SCH (21:00)
[2017-07-08] MEDS: CYCLOBENZAPRINE 5MG TABLET PO PRN (22:02)
[2017-07-08 22:34] VITALS: BP 126/75
[2017-07-08] MEDS ORDERED: SLF 3 ML SYR IV PRN (22:45)
[2017-07-08] MEDS: DIGOXIN 0.125 MG TAB PO SCH (23:41)
[2017-07-08] MEDS: OMEPRAZOLE 20 MG CAP PO SCH (23:57)
[2017-07-08] MEDS: FINASTERIDE 5 MG TAB PO SCH (23:57)
[2017-07-08] MEDS: TAMSULOSIN 0.4 MG CAP PO SCH (23:57)
[2017-07-08] MEDS: SENOKOT S TAB PO SCH (23:58)
[2017-07-08 23:59] VITALS: BP 116/63
[2017-07-09] VITALS (8 sets, daily range): BP systolic 90–110; BP diastolic 55–66
[2017-07-09] MEDS: FUROSEMIDE 40 MG/4 ML VIAL (J1940) IV SCH ×4 (06:00→18:16)
[2017-07-09 06:07] LABS: MEAN CORPUSCULAR HEMOGLOBIN 29.5 pg (27.0-33.0); MEAN CORPUSCULAR VOLUME 92.3 fl (80.0-96.0); PLATELET COUNT, AUTOMATED 179 10^3/uL (150-450); WHITE BLOOD COUNT 10.7 10^3/uL (4.0-10.0)
--- NOTE | 2017-07-09 06:11 | REP ---
CT chest without contrast: History: Right lower lobe infiltrate. Comparison is made with today's chest x-ray. Comparison chest CT study November 28, 2016. Findings: Preliminary digital clerk cashier radiograph demonstrates evidence of right pleural effusion. CT findings: There are bilateral pleural effusions right larger than left. A small amount of upper abdominal ascites is visible as well. The heart is enlarged. Right heart contains pacemaker wires. There is vascular and coronary artery vascular calcification. There is some subsegmental discoid atelectasis in the right lower lobe and right upper lobe perhaps related to the right pleural effusion. Median sternotomy wires are seen. Incidental note is made of some soft tissue nodular density along the right lateral wall of the mid trachea. This is a new finding. The area in question measures 6.5 mm in craniocaudal span x 3 mm in greatest thickness. This may be mucoid material but I cannot exclude a endotracheal polypoid lesion. No definite pulmonary infiltrate or pulmonary nodule or mass is seen. There is some interlobular septal thickening in the upper lobes bilaterally right greater than left. This is consistent with some degree of CHF. There is a 1 cm presumed cyst in the left lobe of the liver unchanged. Impression: Bilateral pleural effusions, right greater than left similar to November 28, 2016. Findings consistent with some degree of CHF. Small amount of upper abdominal ascites. Compressive atelectasis right lung. Mucoid material along the right lateral wall of the trachea versus tracheal polyp. No acute infiltrate. Signed by Robert Solano MD 07/09/2017 07:41 A
[2017-07-09 06:28] LABS: CALCIUM LEVEL 9.1 MG/DL (8.8-10.2); CREATININE FOR GFR 2.27 MG/DL (0.70-1.30); GLOMERULAR FILTRATION RATE 30.3 (>42); MAGNESIUM LEVEL 1.9 MG/DL (1.8-2.4); POTASSIUM SERUM 3.8 MEQ/L (3.5-5.1)
--- NOTE | 2017-07-09 07:04 | HPE ---
DATE OF ADMISSION: 07/08/2017 PRIMARY CARE PHYSICIAN: This is a patient of Liliya Newman. RAILWAY SIGNALLING ENGINEER: Dr. Sebastian. CHIEF COMPLAINT: Shortness of breath. SUMMARY OF PRESENTATION: This is a 71-year-old who has had three days of increasing shortness of breath. He came in today because it was "real bad." He has also had a strange intermittent pain in his chest for two days. It comes and goes, lasts for 1-2 hours at a time. It is associated with being more short of breath. He has had cough productive of phlegm. He has orthopnea. He chronically sleeps in a chair also because the pain has been getting worse. He has lower extremity neuropathy for which he has been out of his medications. He has had trouble getting around. He does have medication available to him at the pharmacy, but he has been unable to get out to the pharmacy to get his medications. He came to the emergency department today, mainly because of the shortness of breath. PAST MEDICAL HISTORY: 1. Congestive heart failure. 2. Chronic hypoxic respiratory failure. 3. Peripheral neuropathy. 4. Kidney disease. 5. Coronary artery disease. 6. Venous stasis. 7. Ischemic cardiomyopathy. 8. Pulmonary hypertension. 9. Benign prostatic hypertrophy. 10. Diabetes. SURGICAL HISTORY: Notable for hip arthroplasty left, tooth extraction, coronary artery bypass graft (CABG), and automatic implantable cardioverter defibrillator (AICD) placement. SOCIAL HISTORY: He lives alone. He has three Chihuahuas. Does not use tobacco. Has never used tobacco. Denies alcohol use. FAMILY HISTORY: Unremarkable due to advanced age. ALLERGIES: No known drug allergies. MEDICATIONS AT HOME: - Flonase - lidocaine ointment - metolazone 2.5 mg every two days - potassium chloride supplement - torsemide 40 mg twice a day - Tylenol with hydrocodone 7.5 mg four times a day as needed for pain - aspirin 81 mg daily - Coreg 3.125 mg twice a day - citalopram 10 mg by mouth daily - Flexeril 5 mg by mouth three times a day as needed - digoxin 125 mcg by mouth every third day - finasteride 5 mg by mouth at bedtime - omeprazole 40 mg by mouth at bedtime - Senokot-S one tablet by mouth twice a day - Flomax 0.4 mg by mouth at bedtime REVIEW OF SYSTEMS: Is notable for now fever, no chills, although he is frequently cold. That has been going on for years. He does not know if he has had any weight gain or weight loss. He does have lower extremity edema which he thinks is improved from where it was yesterday. Has not eaten in the last 24 hours. He is quite hungry. PHYSICAL EXAMINATION: VITAL SIGNS: Temperature is 97.8, pulse 93, respiratory rate 20, blood pressure 115/73, 98% on two liters. GENERAL: Is awake, appropriately interactive, pleasantly conversant. HEENT: Head is normocephalic. Pupils equal, round, and reactive. Pupils are smaller than I would anticipate for the current light level. Anicteric, noninjected. Mucous membranes are moist. NECK: Supple, thick. LUNGS: Breathing is symmetrically diminished. I to E ratio is 1:3. No wheezes, rales, or rhonchi. HEART: Murmur noted at the right sternal border without obvious radiation. ABDOMEN: Soft, doughy, nontender. EXTREMITIES: There is 2+ woody edema bilateral lower extremities to the knees. There is no sacral edema. He is moving all four extremities. Normal mood and affect. LABORATORY DATA: White blood cell count 11.7, hemoglobin 12.0, and platelets of 195. Sodium 132, BUN 51, creatinine 2.05. His baseline creatinine level is probably right around this level. Magnesium 2.6. AST 62, ALT 74. CK 47. Troponin I 0.02. TSH 6.42. Digoxin level 0.1. MICROBIOLOGY: Blood cultures are pending. IMAGING: EKG shows the patient to be in sinus rhythm, first-degree AV block. Interventricular conduction delay similar to 12/08/2016. ASSESSMENT: This is a 71-year-old with what is likely decompensated systolic heart failure and ischemic cardiomyopathy. PLAN: 1. Cardiovascular: The patient has ischemic cardiomyopathy by history, with systolic congestive heart failure which appears to be decompensated. We will start the patient on a fluid restriction. Continue his diuresis with intravenous (IV) Lasix. My concern is he has been out of medications at home, and he is likely decompensated based at least partially on that. 2. The patient has chronic kidney disease. Would appear to be at his baseline. 3. The patient has chest pain which is most likely related to decompensated congestive heart failure, but we will cycle his troponins and repeat an electrocardiogram (EKG) in the morning. He does have an AICD in place. 4. The patient has a history of diabetes with diabetic peripheral neuropathy. We will restart his [place] for neuropathy. He has used Neurontin and Lyrica in the past without good effect. 5. The patient has a previously completed Medical Orders for Life-Sustaining Treatment (MOLST) form which I did discuss with the patient. He is currently DO NOT RESUSCITATE (DNR), DO NOT INTUBATE (DNI).
--- NOTE | 2017-07-09 07:24 | ECGEPIP ---
Stationary ECG Study [facility] - ED Test Date: 2017-07-08 Pat Name: TESSA BRADSHAW Department: Room: - Gender: M Digital Marketing Analyst: : 1945 Requested By: Omari Law Order Number: [id number] Reading MD: Omari Valenzuela Measurements Intervals [place] Rate: 91 P: 62 GA: 224 QRS: 117 QRSD: 131 T: 81 QT: 389 QTc: 479 Interpretive Statements SINUS RHYTHM WITH FIRST DEGREE AV BLOCK WITH OCCASIONAL VENTRICULAR PREMATURE COMPLEXES POSSIBLE LEFT ATRIAL ENLARGEMENT INC. LEFT BUNDLE BRANCH BLOCK NSTTW ABNORMALITIES SIMILAR TO 12/08/16 Electronically Signed On 07-09-2017 7:24:12 EST by Omari Valenzuela
[2017-07-09 08:12] LABS: THYROXINE (T4) 6.1 UG/DL (4.5-12.0)
[2017-07-09] MEDS: CARVedilol 3.125 MG TAB PO SCH ×2 (09:00→21:00)
[2017-07-09] MEDS: HEPARIN SOD (PORCINE) 5000 UNITS/ML VIAL SC SCH ×2 (09:00→21:00)
[2017-07-09] MEDS: CitaloPRAM (CeleXA) 10 MG TABLET PO SCH (09:00)
[2017-07-09] MEDS: SENOKOT S TAB PO SCH ×2 (09:35→23:05)
[2017-07-09] MEDS: LEVOTHYROXINE 25MCG TABLET (0.025MG) PO SCH (09:35)
[2017-07-09] MEDS: SLF 3 ML SYR IV SCH ×3 (09:36→22:00)
[2017-07-09] MEDS ORDERED: GLUCAGON FOR INJ 1 MG VIAL (J1610) SC PRN (17:45)
[2017-07-09] MEDS ORDERED: DEXTROSE 50% 50 ML SYRINGE IV PRN (17:45)
[2017-07-09] MEDS ORDERED: GLUCOSE 4 GM CHEW TABLET PO PRN (17:45)
--- NOTE | 2017-07-09 17:47 | IPNPDOC ---
Text Note Date of Service The patient was seen on 07/09/17. NOTE no acute events overnight. reported improved respiration. Denied chest pain, f/c GENERAL: Is awake, appropriately interactive, pleasantly conversant. HEENT: Head is normocephalic. Pupils equal, round, and reactive. mmm NECK: Supple, thick. LUNGS: Breathing is symmetrically diminished. No wheezes, rales, or rhonchi. HEART: Murmur noted at the right sternal border without obvious radiation. reggular ABDOMEN: Soft, doughy, nontender. EXTREMITIES: There is 2+ woody edema bilateral lower extremities to the knees. There is no sacral edema. He is moving all four extremities. Normal mood and affect. This is a 71-year-old h/o CHF systolic disfunction EF 25%, peripheral neuropathy , CKD, CAD, venous statsis, ischemic cardiomyopathy, Pul HTN, BPH DM admitted with what is likely decompensated systolic heart failure and ischemic cardiomyopathy. acute decompensated systolic HF EF 25% h/o ischemic cardiomyopathy tele, enzymes TTE d/w Dr Romulo voss, bb asa poor complance has AICD I and O daily weight ckD baseline, monitor bun and Cr chest pain most likely related to decompensated tele has AICD asa bb history of diabetes with diabetic peripheral neuropathy. We will restart his [place] for neuropathy. He has used Neurontin and Lyrica in the past without good effect. a1c insulin as per protocol fs Depression c/w med deconditioned PT DVT ppx heparin sq The patient has a previously completed Medical Orders for Life-Sustaining Treatment (MOLST) form which I did discuss with the patient. He is currently DO NOT RESUSCITATE (DNR), DO NOT INTUBATE (DNI). Pending clinical improvement social work for possible assisted living VSRamy, I+O VS, Ramy, I+O Laboratory Tests 07/09/17 05:21 Red Blood Count 4.13 L, Mean Corpuscular Volume 92.3, Mean Corpuscular Hemoglobin 29.5, Mean Corpuscular Hemoglobin Concent 32.0, Red Cell Distribution Width 17.0 H, Calcium Level 9.1 Vital Signs Date Time Temp Pulse Resp B/P (MAP) Pulse Ox O2 Delivery O2 Flow Rate FiO2 07/09/17 16:18 97.0 97 20 103/60 (74) 98 Room Air 11/9/17 12:15 2.0 I&O- Last 24 Hours up to 6 AM 07/10/17 06:00 Intake Total 600 ml Output Total 40 ml Balance 560 ml KAIA MANCUSO MD Jul 09, 2017 17:47
[2017-07-09] MEDS: HumaLOG INSULIN (NovoLOG) PER UNIT SC SCH ×2 (18:16→21:00)
--- NOTE | 2017-07-09 20:11 | ECGEPIP ---
Stationary ECG Study [facility] Test Date: 2017-07-09 Pat Name: TESSA BRADSHAW Department: Room: T1308-95 Gender: M Hide Tanner: JAMES : 1945 Requested By: TESSA Alexis Order Number: [id number] Reading MD: Shivam Sebastian Measurements Intervals [place] Rate: 96 P: 66 AL: 235 QRS: 107 QRSD: 133 T: 60 QT: 387 QTc: 491 Interpretive Statements SINUS RHYTHM WITH FIRST DEGREE AV BLOCK WITH OCCASIONAL VENTRICULAR PREMATURE COMPLEXES MARKED RIGHT AXIS DEVIATION INTRAVENTRICULAR CONDUCTION DELAY LOW VOLTAGE IN EXTREMITY LEADS SIMILAR TO 07/08/17 Electronically Signed On 07-09-2017 20:11:16 EST by Shivam Sebastian
[2017-07-09] MEDS: ASPIRIN 81 MG ENTERIC TAB PO SCH (23:04)
[2017-07-09] MEDS: TAMSULOSIN 0.4 MG CAP PO SCH (23:04)
[2017-07-09] MEDS: OMEPRAZOLE 20 MG CAP PO SCH (23:04)
[2017-07-09] MEDS: FINASTERIDE 5 MG TAB PO SCH (23:05)
[2017-07-10] VITALS (8 sets, daily range): BP systolic 90–136; BP diastolic 54–72
[2017-07-10] MEDS: FUROSEMIDE 40 MG/4 ML VIAL (J1940) IV SCH ×5 (01:11→23:34)
[2017-07-10 05:53] LABS: MEAN CORPUSCULAR HEMOGLOBIN 29.1 pg (27.0-33.0); MEAN CORPUSCULAR HGB CONC 30.9 g/dl (32.0-36.5); PLATELET COUNT, AUTOMATED 176 10^3/uL (150-450); RED CELL DISTRIBUTION WIDTH 16.8 % (11.5-14.5); WHITE BLOOD COUNT 9.4 10^3/uL (4.0-10.0)
[2017-07-10] MEDS: SLF 3 ML SYR IV SCH ×3 (06:00→21:21)
[2017-07-10 06:06] LABS: CALCIUM LEVEL 8.7 MG/DL (8.8-10.2); CREATININE FOR GFR 2.19 MG/DL (0.70-1.30); GLOMERULAR FILTRATION RATE 31.6 (>42); MAGNESIUM LEVEL 1.8 MG/DL (1.8-2.4); POTASSIUM SERUM 3.8 MEQ/L (3.5-5.1)
[2017-07-10] MEDS: LEVOTHYROXINE 25MCG TABLET (0.025MG) PO SCH (06:18)
[2017-07-10] MEDS: HumaLOG INSULIN (NovoLOG) PER UNIT SC SCH ×4 (07:41→21:00)
[2017-07-10] MEDS: ANEXSIA, NORCO 7.5MG/325MG TABLET(HYDROCODONE/APAP) PO PRN ×4 (07:43→23:38)
[2017-07-10] MEDS ORDERED: LIDOCAINE 5% OINT 30 GM TOP SCH (09:00)
--- NOTE | 2017-07-10 09:00 | ECHO ---
DATE OF PROCEDURE: 07/09/2017 REFERRING PHYSICIAN: Dr. Parker Study was performed on 07/09/2017 for indication of congestive heart failure, dyspnea. The patient measures 158 cm and weighs 67 kg. DIMENSIONS: IVS: 0.9 LV: 5.8 LVPW: 0.8 LA: 4.0 Aorta: 2.8 FINDINGS: The study is of good technical quality. Left ventricle is mildly dilated and severely globally hypokinetic. I estimate overall ejection fraction (EF) approximately 20%. Right ventricle does not appear grossly enlarged. Both atria are at least mildly enlarged. There is an echo artifact apparent in right-sided heart chambers corresponding to implantable cardioverter defibrillator (ICD) lead. Aortic valve is mildly sclerotic but has three cusps and normal mobility. Mitral and tricuspid valves appear normal. Pulmonic valve was not well seen. No pericardial effusion is noted. Inferior vena cava was poorly visualized but grossly appears dilated. Aortic root is normal. Aortic arch and abdominal aorta were not seen. Doppler interrogation reveals no aortic stenosis and trace aortic insufficiency. There is at least moderately severe mitral insufficiency with central MR jet corresponding to likely secondary MR due to LV dysfunction. There is moderate tricuspid insufficiency. Calculated pulmonary artery pressure is at least in low 50s, which would correspond to moderate pulmonary hypertension. Evaluation of diastolic function revealed restrictive filling. Also tissue Doppler velocities of mitral annulus are very low (3.4 and 3.5 cm/s in septal and lateral mitral annulus respectively). CONCLUSIONS: 1. The study is of good technical quality. 2. Dilated left ventricle with severe global hypokinesis and overall left ventricular ejection fraction (LVEF) estimated approximately 20%, restrictive filling. 3. Secondary mitral insufficiency which is at least moderately severe. 4. Likely elevated central venous pressure and at least moderate pulmonary hypertension. 5. Echo artifacts apparent in right-sided heart chambers corresponding to ICD leads. COMMENT: Subacute bacterial endocarditis (SBE) prophylaxis is not recommended. Study is consistent with severe cardiomyopathy, both ischemic and nonischemic etiologies are possible. [facility]
--- NOTE | 2017-07-10 09:16 | CR ---
DATE OF CONSULTATION: 07/10/2017 REQUESTING PHYSICIAN: Dr. Parker has asked me to see Mr. Morejon to assist in management of congestive heart failure. Mr. Morejon is known to me. He is a pleasant but difficult to manage 71-year-old man who has known ischemic cardiomyopathy after a remote history of coronary artery bypass graft (CABG) in 2008 and subsequent inferior wall myocardial infarction in 2013. He is known to have severe LV systolic dysfunction and the echocardiogram yesterday actually revealed ejection fraction approximately 20% with fairly significant secondary mitral insufficiency, felt to be at least 3+. He presented to hospital after several days of progressive dyspnea and eventually reached the point where he was not able to tolerate it and came to emergency room. He was found to be in congestive heart failure and has been treated with administration of diuretics. This morning he tells me that his breathing is actually back to normal. When I saw him yesterday, he still had some dyspnea but he claims that it completely resolved by today. On the other hand, he bitterly complains about pain in both lower extremities. They have been swollen and he says that he has severe pain in his soles and toes and it has been very difficult for him to walk, even putting on and off socks causes a lot of discomfort. He denies any chest discomfort. He denies any sensation of palpitations, dizziness or near-syncope. PAST MEDICAL HISTORY 1. Coronary artery disease. He had CABG in 2008 (PRESCOTT to LAD, ERIN to PDA, SVG to obtuse marginal). He subsequently suffered inferior wall myocardial infarction in 2013, which was treated by administration of several drug-eluting stents to graft to obtuse marginal and he had additional intervention that was elective approximately 1 month later when he received the stents to the graft to right coronary artery. His echocardiogram was performed during this hospitalization and besides having severe LV systolic dysfunction, he also has fairly severe mitral insufficiency. 2. Hypertension. 3. Dyslipidemia. 4. 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 5. Degenerative joint disease. 6. Benign prostatic hypertrophy (BPH). SURGICAL HISTORY: Positive for CABG as above, AICD placement, left knee replacement. SOCIAL HISTORY The patient lives alone with three dogs. He does not smoke and never did. He does not drink alcohol. He does not have much of social support. FAMILY HISTORY: No longer relevant but positive for coronary artery disease. OUTPATIENT MEDICATIONS: Reported: - Flonase - metolazone 2.5 mg every other day - potassium 10 mEq a day - torsemide 40 mg twice a day - Tylenol with hydrocodone as needed for pain - aspirin 81 a day - Coreg 3.125 twice a day - citalopram 10 a day - Flexeril 5 mcg three times a day - digoxin 0.125 mg every 72 hours - finasteride 5 mg a day - omeprazole 40 a day - Senokot twice a day - Flomax I have to point out that even though these medications are listed in the pharmacy, I have had always a very difficult time learning what he actually takes and does not take, he never brings his medications to the office visit and he has no recollection as to what he actually takes. REVIEW OF SYSTEMS: He denies any recent fever, chills, nausea, vomiting or diarrhea. No chest pain. He does have at least baseline Heart Association class III dyspnea, even though he usually is limited by leg pains. PHYSICAL EXAMINATION: Elderly man appears to be in no distress currently. Blood pressure 115/72, heart rate has been around 70 to 100 beats per minute in sinus rhythm with occasional ventricular, as well as supraventricular ectopy. He is afebrile. Saturation 92 % on 2 liters of oxygen by nasal cannula. His jugular venous pressure is approximately 2 or 3 cm above clavicle. Lungs are clear to auscultation with good air movement today. Heart exam reveals regular rhythm. I do not appreciate gallop, but there is a blowing systolic murmur at the apex. Abdomen is soft, nontender. He has about 2+ edema from his toes all the way to about three-quarters of his majano. There is a pinkish discoloration of the skin and he is very tender to touch everywhere in this area. His peripheral pulses are difficult to palpate. Popliteal pulses are present bilaterally but of poor quality. LABORATORY DATA: CBC reveals hemoglobin 11.2, hematocrit 36, platelet count 176,000 and WBC count 9.4. Basic metabolic panel as of this morning, potassium 3.8, BUN 48, creatinine 2.2 for GFR 32 and glucose 144. He is admission creatinine was 2.0, so there has not been a appreciable change. His cardiac enzymes have been negative. His TSH was mildly elevated at 7.8. His digoxin level was only 0.1. Admission chest x-ray was consistent with prior open heart surgery, ICD placement and congestive heart failure. ECG revealed sinus rhythm with poor R-wave progression and nonspecific IVCD with occasional PVCs. ASSESSMENT AND PLAN: Mr. Morejon is a 71-year-old man who has chronic systolic congestive heart failure due to underlying ischemic cardiomyopathy that got acutely exacerbated. The cause of exacerbation is unclear but there are numerous possibilities, including nutritional, as well as questions about the compliance with medications. He is still volume overloaded with prominent peripheral edema , even though his lungs are relatively clear. The situation is further complicated by presence of mitral insufficiency. Unfortunately this is something that is inherently not correctable as the patient is clearly not a candidate for open heart surgery again. My plan would be to continue diuresis, even though his renal function, if anything, is slightly deteriorated, I think that he is still volume overloaded and we need to continue. His blood pressure has been soft and consequently he intermittently is not receiving even minimal doses of Coreg, so I believe that it will be difficult to advance this further. I am going to remove the holding parameters of Coreg so he gets at least 3.125 mg twice a day. On an outpatient basis or when he gets better we can try to advance this further. I do not believe he can get WALDEMAR inhibitor or ARB because of low blood pressure and also because of his renal dysfunction, but I will try to give him hydralazine and I will put holding parameters for blood pressure. The second issue is that of his leg pain. I think it is probably principally due to diabetic neuropathy. He tells me that he previously was on Lyrica and gabapentin but it made him "crazy, " and he would not consider starting the medications again. I would recommend to take LUISITO measurements because he probably has concomitant peripheral vascular disease and if it should be severe we can ask vascular surgery to assess him for possibility of intervention, even though with his renal insufficiency it is certainly fraught with potential complications. He already has a defibrillator in place. It has never fired and hopefully never will. His prognosis is poor. I would advocate to get some rn social services involved because I suspect that his diet and medication compliance is not good, even though he has been trying. I spoke about this with Dr. Parker. Dr. Capone will be covering this weekend. LOGAN
[2017-07-10] MEDS: CARVedilol 3.125 MG TAB PO SCH ×2 (09:45→21:20)
[2017-07-10] MEDS: SENOKOT S TAB PO SCH ×2 (09:45→21:19)
[2017-07-10] MEDS: HEPARIN SOD (PORCINE) 5000 UNITS/ML VIAL SC SCH ×2 (09:45→21:20)
[2017-07-10] MEDS: **hydrALAZINE** 10 MG TAB PO SCH ×3 (09:48→21:20)
[2017-07-10] MEDS: ISOSORBIDE DIN. (ISORDIL) 5 MG TAB PO SCH ×3 (09:48→17:40)
[2017-07-10] MEDS: CitaloPRAM (CeleXA) 10 MG TABLET PO SCH (11:51)
[2017-07-10] MEDS ORDERED: INFLUENZA VIRUS VACCINE HIGH DOSE 0.5 ML SYRINGE (90662) IM ONE (12:00)
[2017-07-10] MEDS ORDERED: PREVNAR 13 VACCINE SYRINGE (CPT CODE:90670) IM ONE (12:00)
--- NOTE | 2017-07-10 15:05 | REP ---
Bilateral lower extremity duplex arterial ultrasound: History: Bilateral leg pain. Leg edema. Neuropathy. Findings: Moderate diffuse atherosclerotic plaquing is seen bilaterally in the lower extremity arterial tree. The ankle brachial index is 1.0 bilaterally. Monophasic waveforms are noted bilaterally in the distal posterior tibial and distal anterior tibial arteries. Velocity chart right lower extremity: FIELD SERVICES DIRECTOR 86 cm/s Profunda 78 Proximal SFA 161 Mid SFA 110 Distal SFA 91 Popliteal 93 Proximal STEPHANE 114 Tibioperoneal trunk 78 Proximal INFORMATION TECHNOLOGY SECURITY ANALYST 95 Distal INFORMATION TECHNOLOGY SECURITY ANALYST 77 Distal STEPHANE 75 Velocity chart left lower extremity: FIELD SERVICES DIRECTOR 71 cm/s Profunda 77 SFA proximal 117 SFA mid 93 SFA distal 88 Popliteal 111 Proximal STEPHANE 37 Tibioperoneal trunk 71 Proximal INFORMATION TECHNOLOGY SECURITY ANALYST 26 Distal INFORMATION TECHNOLOGY SECURITY ANALYST 72 Distal STEPHANE 72 Impression: Diffuse atherosclerotic plaquing. No evidence of high-grade stenosis. Signed by Robert Solano MD 07/10/2017 04:50 P
--- NOTE | 2017-07-10 15:33 | IPNPDOC ---
Text Note Date of Service The patient was seen on 07/10/17. NOTE no acute events overnight. reported improved respiration. Denied chest pain, f/c , reported b/l LE pain GENERAL: Is awake, appropriately interactive, pleasantly conversant. HEENT: Head is normocephalic. Pupils equal, round, and reactive. mmm NECK: Supple, thick. LUNGS: Breathing is symmetrically diminished. No wheezes, rales, or rhonchi. HEART: Murmur noted at the right sternal border without obvious radiation. reggular ABDOMEN: Soft, doughy, nontender. EXTREMITIES: There is 2+ edema bilateral lower extremities to the knees. There is no sacral edema. He is moving all four extremities. Normal mood and affect. This is a 71-year-old h/o CHF systolic disfunction EF 25%, peripheral neuropathy , CKD, CAD, venous statsis, ischemic cardiomyopathy, Pul HTN, BPH DM admitted with what is likely decompensated systolic heart failure and ischemic cardiomyopathy. acute decompensated systolic HF EF 20% h/o ischemic cardiomyopathy tele, enzymes TTE d/w Dr Romulo voss, bb asa added isordil and hydralazine poor complance has AICD I and O daily weight ckD baseline, monitor bun and Cr chest pain most likely related to decompensated tele has AICD asa bb hydralazine and isordil history of diabetes with diabetic peripheral neuropathy. We will restart his [place] for neuropathy. He has used Neurontin and Lyrica in the past without good effect. a1c insulin as per protocol fs lidocaine oint pain management arterial US showed no critical stenosis Depression c/w med deconditioned PT ot DVT ppx heparin sq The patient has a previously completed Medical Orders for Life-Sustaining Treatment (MOLST) form which I did discuss with the patient. He is currently DO NOT RESUSCITATE (DNR), DO NOT INTUBATE (DNI). Pending clinical improvement, refused assisted living or fpc, stating he would rather in his home social work , poor compliance Ramy ZAMAN, I+O VS, Ramy, I+O Laboratory Tests 07/10/17 05:20 Red Blood Count 3.85 L, Mean Corpuscular Volume 94.0, Mean Corpuscular Hemoglobin 29.1, Mean Corpuscular Hemoglobin Concent 30.9 L, Red Cell Distribution Width 16.8 H, Calcium Level 8.7 L Vital Signs Date Time Temp Pulse Resp B/P (MAP) Pulse Ox O2 Delivery O2 Flow Rate FiO2 07/10/17 14:20 16 07/10/17 12:05 Room Air 0.0 07/10/17 12:00 97.0 102 115/56 (75) 100 I&O- Last 24 Hours up to 6 AM 07/11/17 05:59 Intake Total 360 ml Output Total 650 ml Balance -290 ml KAIA MANCUSO MD Jul 10, 2017 15:33
[2017-07-10] MEDS: CYCLOBENZAPRINE 5MG TABLET PO PRN (18:26)
--- NOTE | 2017-07-10 18:40 | CR.PDOC ---
[facility] Consultation General Date of Consultation: 07/10/17 Consultation Report For: BRITTNEY JOLLEY MD Chief Complaint The patient is a 71-year-old male admitted with a reason for visit of Chf, Acute On Chronic. Pain management is asked to see Mr. Morejon for lower extremity pain and neuropathy. History of Present Illness Pierce Morejon is a 71-year-old gentleman who was admitted for acute decompensated heart failure. is seen in his hospital room today. He is seated in the bedside chair. He reports he has been having intense sharp J tingling, electrical pain in his lower extremities which make it impossible for him to sleep. States that his current pain medication does provide a slight amount of relief. Reports that this pain has been present for at least the last 3-5 years. Notes that it is gotten worse over time. States that the pain starts in the lower extremities and extends into the feet. He notes he has sharp, jabbing, electrical pain in his feet, legs, and various portions of his body is also noting "neuropathy" in the third, fourth and fifth fingers of his right hand. Reports he has been trialed on Lyrica and gabapentin in the past, which made him "out of his mind." States he does not believe he has been on any other medications for the neuropathy, but that he is willing to try anything. Patient' s nurse tells me that Dr. lopes has put in to have Mr. Morejon started on small doses of cyclobenzaprine for the sharp muscle spasms. Home Medications Scheduled (Senna Plus 8.6-50 mg) 1 Tab Tab, 1 TAB PO BID, (Reported) (Digoxin) 125 Mcg Tab, 125 MCG PO Q3RD, (Reported) Aspirin (Aspirin 81) 81 Mg Tab, 81 MG PO QHS, (Reported) Carvedilol (Carvedilol) 3.125 Mg Tab, 3.125 MG PO BID, (Reported) Citalopram Hydrobromide (Celexa) 10 Mg Tab, 10 MG PO DAILY, (Reported) Finasteride (Finasteride) 5 Mg Tab, 5 MG PO QHS, (Reported) Metolazone (Metolazone) 2.5 Mg Tab, 2.5 MG PO Q2D, (Reported) Omeprazole (Omeprazole) 40 Mg Cap, 40 MG PO QHS, (Reported) Potassium Chloride (Klor-Con M10) 10 Meq Tabcr, 10 MEQ PO DAILY, (Reported) 30MEQ DAILY Potassium Chloride (Klor-Con M20) 20 Meq Tabcr, 20 MEQ PO DAILY, (Reported) 30MEQ DAILY Tamsulosin Hydrochloride (Flomax) 0.4 Mg Cap, 0.4 MG PO QHS, (Reported) Torsemide (Torsemide) 20 Mg Tab, 40 MG PO BID, (Reported) Scheduled PRN (Flonase Allergy Relief) 50 Mcg/Act Spr, 2 SPRAY NA DAILY PRN for ALLERGIES, ( Reported) Acetaminophen/Hydrocodone (Hydrocodone/Acetaminophen 7.5-325 mg) 1 Tab Tab, 1 TAB PO QID PRN for PAIN, (Reported) Cyclobenzaprine HCl (Cyclobenzaprine HCl) 5 Mg Tab, 5 MG PO TID PRN for SPASMS, (Reported) Lidocaine HCl (Lidocaine 5% Ointment) 1 Dose/35.44 Gm Oint, 1 DOSE TOP for neuropathy, (Reported) APPLIES TO LOWER EXTREMITIES Miscellaneous Medications [Patient Comment] , (Reported) PATIENT DOESN'T REALLY KNOW MEDS... STATES THAT HE HASN'T REALLY BEEN TAKING HIS MEDS CORRECTLY DUE TO AUTO REFILL PROBLEM AT [facility]. MED LIST OBTAINED FROM PHARMACY. MANY MEDICATIONS HAVE NOT BEEN FILLED SINCE MARCH. Allergies Coded Allergies: No Known Allergies (Unverified , 06/21/15) Past Medical History Medical History Past medical history is significant for coronary artery disease with myocardial infarction 2013. He is status post coronary artery bypass grafting done in 2008. He has a long history of cardiomyopathy and per Dr. Sebastian most recent cardiac 8 junction fraction is 20-25%. Has long history of diabetes mellitus with history of neuropathy. Also has history of hypothyroidism. An implanted defibrillator is in place. There is history of chronic renal insufficiency with most recent glomerular filtration rate at 31.6 Family History Family History Noncontributory. Social History Social History Lives alone with his 3 dogs.. There is some concern that he may not be taking his medications on as scheduled or as ordered. Denies use of alcohol or tobacco. Review of Systems Subjective Constitutional: Reports: weakness, unexplained weight loss (secondary to poor appetite.) HEENT: Denies: head aches, vision problems, hearing problems Skin: Reports: change in color (are noted in both lower extremities.), Denies: lesions, rash, breakdown Pulmonary: Reports: cough (nonproductive), shortness of breath (on exertion), wheezing (intermittent) Cardiovascular: Reports: chest pain, edema (both lower extremities) Gastrointestinal: Reports: constipation, Denies: loss of bowel control Genitourinary: Denies: dysuria, hematuria, loss of bladder control Endocrine: Reports: Diabetes mellitus, Thyroid dysfunction Musculoskeletal: Reports: foot pain, joint pain (in knees), muscle pain (with difficulty in walking) Neurological: Reports: numbness (bilateral lower extremities), pre-existing deficit, Denies: headache, seizures, tremors, weakness, migraines Psych: Reports: mood normal, Denies: thoughts of self harm, thoughts of harming other Physical Examination Physical Examination Vital Signs/I&O Vital Signs Date Time Temp Pulse Resp B/P (MAP) Pulse Ox O2 Delivery O2 Flow Rate FiO2 07/10/17 17:40 136/70 07/10/17 16:00 Room Air 0.0 07/10/17 16:00 97.8 96 16 99 I&O- Last 24 Hours up to 6 AM 07/11/17 06:00 Intake Total 360 ml Output Total 1200 ml Balance -840 ml General Exam: Positive: alert, attentive, talkative, no acute distress, oriented times three ENT EXAM: Positive: normocephalic Chest Exam: Positive: Decreased breath sounds (particularly at bases), Negative: Wheezing, Rales Heart Exam: Positive: Regular rate and rhythm, Normal S1, S2, Negative: Murmurs, Rubs Abdominal Exam: Positive: Normal bowel sounds, Soft, Nontender Extremity Exam: Positive: Edema (2+ bilateral lower extremities), Other ( unable to palpate dorsal patellas or posttibial, pulses bilaterally. Tender to touch bilaterally over the arch.) Skin Exam: Positive: Warm, Dry, Negative: Rashes, Lesions Neuro Exam: Positive: Posture is stooped (in gait is stepping in nature), Other (decreased sensation in stocking glove fashion noted to light touch bilaterally. Lower extremities from mid calf through the toes. Cane is used for balance. Gait is stepping in nature) Psych Exam: Positive: Mental status NL, Mood NL Inspection of spine No tenderness with palpation over lower lumbar spine. Musculoskeletal Atrophy of small muscles of the hands are noted. Laboratory Data Labs 24H Laboratory Tests 2 07/09/17 21:37: Bedside Glucose (Misc Panel) 144H 07/10/17 05:20: Nucleated Red Blood Cells % (auto) 0.0, Anion Gap 8, Glomerular Filtration Rate 31.6L, Estimated Mean Plasma Glucose 151H, Hemoglobin A1c 6.9, Blood Urea Nitrogen 48H, Creatinine 2.19H, Sodium Level 136, Potassium Level 3.8, Chloride Level 99, Carbon Dioxide Level 29, Calcium Level 8.7L, Magnesium Level 1.8 07/10/17 11:28: Bedside Glucose (Misc Panel) 130H CBC/BMP Laboratory Tests 07/10/17 05:20 Red Blood Count 3.85 L, Mean Corpuscular Volume 94.0, Mean Corpuscular Hemoglobin 29.1, Mean Corpuscular Hemoglobin Concent 30.9 L, Red Cell Distribution Width 16.8 H, Calcium Level 8.7 L FSBS Laboratory Tests Test 07/09/17 21:37 07/10/17 11:28 Range/Units Bedside Glucose (Misc Panel) 144 130 83-110 MG/DL Assessment 1. Bilateral lower extremity peripheral neuropathy, which may be secondary to diabetes mellitus and or peripheral vascular disease and or hypothyroidism. 2. Acute on chronic decompensated congestive heart failure. 3. Chronic renal insufficiency/failure Recommendation and Plan Mr. Morejon's medication list was carefully reviewed. I do note that he was recently started on very small doses of cyclobenzaprine and that he is currently on Celexa 10 mg daily. The cyclobenzaprine may be helpful with this acute muscle spasms. The Celexa as a SSRI is not usually particularly helpful in management of neuropathy. He has however been on this for a period of time. Look to add very small dose of Cymbalta, which can have more been asked and RI effect and this has been shown to be effective in cases of peripheral neuropathy. He also has a history of degenerative joint disease and Cymbalta can be effective for this. He has not been tolerant of Lyrica or gabapentin. He was also started on lidocaine ointment. He has some very specific areas of pain across the dose surface of the feet, so would like to try use of Lidoderm patch cut to fit. We will continue to monitor. Thank you [Keith], for allowing us to participate in the care of your patient, [ Pierce Morejon]. Should you have any questions we will be glad to discuss this with you at any time please contact us here at the pain center at [phone]. Natalie Strong Jul 10, 2017 18:40
[2017-07-10] MEDS: FINASTERIDE 5 MG TAB PO SCH (21:19)
[2017-07-10] MEDS: TAMSULOSIN 0.4 MG CAP PO SCH (21:19)
[2017-07-10] MEDS: ASPIRIN 81 MG ENTERIC TAB PO SCH (21:19)
[2017-07-10] MEDS: OMEPRAZOLE 20 MG CAP PO SCH (21:19)
[2017-07-11 04:45] VITALS: BP 104/68
[2017-07-11 05:36] LABS: MEAN CORPUSCULAR HEMOGLOBIN 29.3 pg (27.0-33.0); MEAN CORPUSCULAR HGB CONC 31.3 g/dl (32.0-36.5); MEAN CORPUSCULAR VOLUME 93.6 fl (80.0-96.0); PLATELET COUNT, AUTOMATED 174 10^3/uL (150-450); RED CELL DISTRIBUTION WIDTH 16.8 % (11.5-14.5); WHITE BLOOD COUNT 9.5 10^3/uL (4.0-10.0)
[2017-07-11 05:53] LABS: CALCIUM LEVEL 8.6 MG/DL (8.8-10.2); CREATININE FOR GFR 2.09 MG/DL (0.70-1.30); GLOMERULAR FILTRATION RATE 33.3 (>42); MAGNESIUM LEVEL 1.8 MG/DL (1.8-2.4); POTASSIUM SERUM 3.5 MEQ/L (3.5-5.1)
[2017-07-11] MEDS: SLF 3 ML SYR IV SCH ×3 (06:11→21:56)
[2017-07-11] MEDS: LEVOTHYROXINE 25MCG TABLET (0.025MG) PO SCH (06:11)
[2017-07-11] MEDS: ISOSORBIDE DIN. (ISORDIL) 5 MG TAB PO SCH ×3 (06:11→17:46)
[2017-07-11] MEDS: FUROSEMIDE 40 MG/4 ML VIAL (J1940) IV SCH ×3 (06:12→17:47)
[2017-07-11 08:00] VITALS: BP 105/57
[2017-07-11] MEDS: ANEXSIA, NORCO 7.5MG/325MG TABLET(HYDROCODONE/APAP) PO PRN ×2 (08:56→17:11)
[2017-07-11] MEDS: HEPARIN SOD (PORCINE) 5000 UNITS/ML VIAL SC SCH ×2 (08:56→20:49)
[2017-07-11] MEDS: CYCLOBENZAPRINE 5MG TABLET PO PRN ×2 (08:56→17:11)
[2017-07-11] MEDS: DIGOXIN 0.125 MG TAB PO SCH (08:57)
[2017-07-11] MEDS: **hydrALAZINE** 10 MG TAB PO SCH ×3 (08:57→20:48)
[2017-07-11] MEDS: CitaloPRAM (CeleXA) 10 MG TABLET PO SCH (08:57)
[2017-07-11] MEDS: POTASSIUM CHLORIDE 10 MEQ SR TABLET PO SCH (08:57)
[2017-07-11] MEDS: LIDOCAINE 5% (LIDODERM) PATCH TD SCH (08:58)
[2017-07-11] MEDS: CARVedilol 3.125 MG TAB PO SCH ×2 (08:58→20:49)
[2017-07-11] MEDS: DULoxetine 20 MG CAP (CYMBALTA) PO SCH (08:58)
[2017-07-11] MEDS: SENOKOT S TAB PO SCH ×2 (08:58→20:47)
[2017-07-11] MEDS: HumaLOG INSULIN (NovoLOG) PER UNIT SC SCH ×4 (08:59→20:50)
--- NOTE | 2017-07-11 10:56 | IPNPDOC ---
Text Note Date of Service The patient was seen on 07/11/17. NOTE no acute events overnight. reported improved respiration. Denied chest pain, f/c , reported b/l LE pain GENERAL: Is awake, appropriately interactive, pleasantly conversant. HEENT: Head is normocephalic. Pupils equal, round, and reactive. mmm NECK: Supple, thick. LUNGS: Breathing is symmetrically diminished. No wheezes, rales, or rhonchi. HEART: Murmur noted at the right sternal border without obvious radiation. reggular ABDOMEN: Soft, doughy, nontender. EXTREMITIES: There is 2+ edema bilateral lower extremities to the knees. There is no sacral edema. He is moving all four extremities. Normal mood and affect. This is a 71-year-old h/o CHF systolic disfunction EF 25%, peripheral neuropathy , CKD, CAD, venous statsis, ischemic cardiomyopathy, Pul HTN, BPH DM admitted with what is likely decompensated systolic heart failure and ischemic cardiomyopathy. acute decompensated systolic HF EF 20% h/o ischemic cardiomyopathy tele, enzymes TTE d/w Dr Romulo voss, bb asa added isordil and hydralazine poor complance has AICD I and O daily weight ckD baseline, monitor bun and Cr chest pain most likely related to decompensated tele has AICD asa bb hydralazine and isordil history of diabetes with diabetic peripheral neuropathy. [place] prn. He has used Neurontin and Lyrica in the past without good effect. a1c insulin as per protocol fs pain management, rec lidocaine patch, Cymbalta and flexeril arterial US showed no critical stenosis Depression c/w med deconditioned PT ot DVT ppx heparin sq The patient has a previously completed Medical Orders for Life-Sustaining Treatment (MOLST) form which I did discuss with the patient. He is currently DO NOT RESUSCITATE (DNR), DO NOT INTUBATE (DNI). 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
[2017-07-11 12:00] VITALS: BP 92/78
--- NOTE | 2017-07-11 12:46 | IPN ---
DATE: 07/11/2017 Mr. Pierce Morejon was see earlier today. He was sitting up in his bed in no acute distress at rest. He stated that he feels better and he is pitting edema has improved significantly. He denies any chest pain, palpitation, dizziness. There is no report of bleeding. On physical examination, the patient is alert and oriented, in no acute distress at rest and his vital signs revealed a blood pressure of 112/74 with a pulse of 90, respiration 18 and his maximum temperature was 97.7 degrees Fahrenheit with a oxygen saturation of 93-96% on room air. He has a negative fluid balance of 1 liter for 07/10/2017. Examination of the head: Atraumatic. Neck is supple with extended jugular. The lungs do not reveal any wheezing or crackles. The heart examination revealed normal S1, S2 without gallops. The PMI is displaced inferiorly and laterally. There is no rub. Abdomen is soft, obese and nontender. Extremities reveals a +2 bilateral lower leg edema. Neurological examination is negative for focal deficit. LABS: CBC done today revealed a WBC 9.5, hemoglobin 11.5, hematocrit 36.8 and platelet 174,000. BMP revealed a sodium 137, potassium 3.5, chloride 99, CO2 29, BUN 47, creatinine 2.09, GFR 33.3, fasting glucose 143 and calcium 8.6. Serum magnesium 1.8. Serum digoxin on 07/08/2017 was 0.1. Doppler of the lower extremities on 07/10/2017 revealed diffuse atherosclerotic plaques, otherwise no evidence of high grade stenosis. Chest CT on admission revealed bilateral pleural effusion, right greater than left and unchanged from 11/28/2016. There were some findings of heart failure. Small amount of upper abdominal ascites also was noted. Mr. Pierce Morejon seems to be stable from a cardiac point of view and he is responding to current management. He will continue the same. . His cardiac condition and his overall prognosis remains poor from a cardiac point of view. I will continue to follow him along with you while in the hospital. Please do not hesitate to call for any questions.
[2017-07-11 16:00] VITALS: BP 86/51
[2017-07-11 17:45] VITALS: BP 102/64
[2017-07-11 20:00] VITALS: BP 105/78
[2017-07-11] MEDS: TAMSULOSIN 0.4 MG CAP PO SCH (20:48)
[2017-07-11] MEDS: ASPIRIN 81 MG ENTERIC TAB PO SCH (20:48)
[2017-07-11] MEDS: OMEPRAZOLE 20 MG CAP PO SCH (20:48)
[2017-07-11] MEDS: FINASTERIDE 5 MG TAB PO SCH (20:48)
[2017-07-11] MEDS: **NOTE PATIENT COMMENT** MISC XX SCH (20:49)
[2017-07-12] VITALS: BP 115/71
[2017-07-12] MEDS: FUROSEMIDE 40 MG/4 ML VIAL (J1940) IV SCH ×4 (00:25→18:00)
[2017-07-12] MEDS: ANEXSIA, NORCO 7.5MG/325MG TABLET(HYDROCODONE/APAP) PO PRN ×4 (03:48→18:34)
[2017-07-12 04:00] VITALS: BP 125/59
[2017-07-12 05:11] LABS: MEAN CORPUSCULAR HEMOGLOBIN 29.6 pg (27.0-33.0); MEAN CORPUSCULAR HGB CONC 31.5 g/dl (32.0-36.5); MEAN CORPUSCULAR VOLUME 93.7 fl (80.0-96.0); PLATELET COUNT, AUTOMATED 164 10^3/uL (150-450); RED CELL DISTRIBUTION WIDTH 16.8 % (11.5-14.5)
[2017-07-12 05:31] LABS: CALCIUM LEVEL 9.1 MG/DL (8.8-10.2); CREATININE FOR GFR 2.05 MG/DL (0.70-1.30); GLOMERULAR FILTRATION RATE 34.1 (>42); MAGNESIUM LEVEL 1.7 MG/DL (1.8-2.4); POTASSIUM SERUM 3.8 MEQ/L (3.5-5.1)
[2017-07-12] MEDS: ISOSORBIDE DIN. (ISORDIL) 5 MG TAB PO SCH ×3 (06:02→17:03)
[2017-07-12] MEDS: LEVOTHYROXINE 25MCG TABLET (0.025MG) PO SCH (06:02)
[2017-07-12] MEDS: SLF 3 ML SYR IV SCH ×3 (06:03→21:11)
[2017-07-12] MEDS: HumaLOG INSULIN (NovoLOG) PER UNIT SC SCH ×4 (07:31→20:31)
[2017-07-12] MEDS: HEPARIN SOD (PORCINE) 5000 UNITS/ML VIAL SC SCH ×2 (07:32→21:11)
[2017-07-12] MEDS: SENOKOT S TAB PO SCH ×2 (07:32→21:10)
[2017-07-12] MEDS: LIDOCAINE 5% (LIDODERM) PATCH TD SCH (07:32)
[2017-07-12] MEDS: CitaloPRAM (CeleXA) 10 MG TABLET PO SCH (07:33)
[2017-07-12] MEDS: **hydrALAZINE** 10 MG TAB PO SCH ×3 (07:33→21:00)
[2017-07-12] MEDS: DULoxetine 20 MG CAP (CYMBALTA) PO SCH (07:33)
[2017-07-12] MEDS: CARVedilol 3.125 MG TAB PO SCH ×3 (07:33→21:10)
[2017-07-12] MEDS: POTASSIUM CHLORIDE 10 MEQ SR TABLET PO SCH (07:34)
[2017-07-12 08:00] VITALS: BP_SYST 101; BP_SYST 104; BP_DIAS 59; BP_DIAS 61
--- NOTE | 2017-07-12 10:05 | IPNPDOC ---
Text Note Date of Service The patient was seen on 07/12/17. NOTE no acute events overnight. reported improved respiration. Denied chest pain, f/c , reported b/l LE pain GENERAL: Is awake, appropriately interactive, pleasantly conversant. HEENT: Head is normocephalic. Pupils equal, round, and reactive. mmm NECK: Supple, thick. LUNGS: Breathing is symmetrically diminished. No wheezes, rales, or rhonchi. HEART: Murmur noted at the right sternal border without obvious radiation. reggular ABDOMEN: Soft, doughy, nontender. EXTREMITIES: There is 2+ edema bilateral lower extremities to the knees. There is no sacral edema. He is moving all four extremities. Normal mood and affect. This is a 71-year-old h/o CHF systolic disfunction EF 25%, peripheral neuropathy , CKD, CAD, venous statsis, ischemic cardiomyopathy, Pul HTN, BPH DM admitted with what is likely decompensated systolic heart failure and ischemic cardiomyopathy. acute decompensated systolic HF EF 20% h/o ischemic cardiomyopathy tele, enzymes TTE d/w Dr Romulo voss, bb asa added isordil and hydralazine poor complance has AICD I and O daily weight ckD baseline, monitor bun and Cr chest pain most likely related to decompensated tele has AICD asa bb hydralazine and isordil history of diabetes with diabetic peripheral neuropathy. [place] prn. He has used Neurontin and Lyrica in the past without good effect. a1c insulin as per protocol fs pain management, rec lidocaine patch, Cymbalta and flexeril arterial US showed no critical stenosis Depression c/w med deconditioned PT ot DVT ppx heparin sq The patient has a previously completed Medical Orders for Life-Sustaining Treatment (MOLST) form which I did discuss with the patient. He is currently DO NOT RESUSCITATE (DNR), DO NOT INTUBATE (DNI). 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
--- NOTE | 2017-07-12 11:02 | IPN ---
DATE: 07/12/2017 Mr. Pierce Morejon was see earlier today. He was sitting up in his bed in no acute distress at rest. His nurse was at bedside. He has been ambulating in the room. He stated that he feels better and denies any chest pain or palpitations or dizziness. There is no report of bleeding. There is no focal manifestation. He was initially admitted on 07/08/2017 with shortness of breath due to decompensated congestive heart failure (CHF), acute on chronic secondary to left ventricular systolic dysfunction. He was started on IV furosemide and it seemed that his condition/symptoms are improving. The torsemide has been on hold, as well as the metolazone. On physical examination, the patient is alert and oriented, in no acute distress at rest and very pleasant. His most recent vital signs revealed a blood pressure of 101/61 with a pulse of 88, respiration 17 to 18, and his maximum temperature was 97.1 degrees Fahrenheit with a oxygen saturation of 95% on room air. He only had 220 mL negative fluid balance for 07/11/2017 and prior to that on 07/10/2017 it was 1 liter. So far today, he has a negative fluid balance of 500 mL. Examination of the head: Atraumatic. Neck is supple with extended jugular. The lungs reveal decreased breath sounds at the right base but no wheezing or crackles. The heart examination revealed normal S1, S2 without gallops. The PMI is displaced inferiorly and laterally. There is no rub. Abdomen is soft. Extremities reveals a +1 bilateral pedal and lower leg edema. Neurological examination is negative for focal deficit. LABS: BMP done today revealed a sodium of 137, potassium 3.8, chloride 99, CO2 29, BUN 48, creatinine 2.05, GFR 34.1, fasting glucose 155, calcium 9.1, and magnesium 1.7. CBC revealed a WBC of 8.0, hemoglobin 11.2, hematocrit 35.5 and platelets 164,000. Serum digoxin on admission was 0.1. IMPRESSION: 1. Status post decompensated congestive heart failure (CHF), acute on chronic and secondary to left ventricular systolic dysfunction due to severe ischemic cardiomyopathy. 2. History of hypertension. 3. Hyperlipidemia. 4. Diabetes mellitus and its complications. 5. Chronic kidney disease. 6. Anemia. 7. History of AICD implantation. 8. Hypomagnesemia. 9. Arthritis due to degenerative joint disease. 10. History of benign prostatic hypertrophy (BPH). 11. History of hypothyroidism. Mr. Pierce Morejon seems to be stable and his symptoms are improving, as well as including his pedal edema. We will continue current management and monitor his BUN and creatinine closely, as well as his serum potassium. His prognosis from a cardiac point of view remains the same. His kidney function remained stable, as well as his anemia. He does have some mild hypomagnesemia and he would be started on magnesium supplement.
[2017-07-12 12:00] VITALS: BP 124/67
[2017-07-12] MEDS: CYCLOBENZAPRINE 5MG TABLET PO PRN ×2 (12:19→18:33)
[2017-07-12] MEDS: MAGNESIUM OXIDE 400 MG TAB (MAG-OX) PO SCH (12:20)
[2017-07-12 16:00] VITALS: BP 101/54
[2017-07-12 20:38] VITALS: BP 98/58
[2017-07-12] MEDS: **NOTE PATIENT COMMENT** MISC XX SCH (21:00)
[2017-07-12] MEDS: FINASTERIDE 5 MG TAB PO SCH (21:09)
[2017-07-12] MEDS: TAMSULOSIN 0.4 MG CAP PO SCH (21:10)
[2017-07-12] MEDS: ASPIRIN 81 MG ENTERIC TAB PO SCH (21:11)
[2017-07-12] MEDS: OMEPRAZOLE 20 MG CAP PO SCH (21:11)
[2017-07-13] VITALS: BP 108/68
[2017-07-13] MEDS: FUROSEMIDE 40 MG/4 ML VIAL (J1940) IV SCH ×2 (00:03→05:59)
[2017-07-13] MEDS: ANEXSIA, NORCO 7.5MG/325MG TABLET(HYDROCODONE/APAP) PO PRN (00:03)
[2017-07-13] MEDS: CYCLOBENZAPRINE 5MG TABLET PO PRN (00:04)
[2017-07-13 05:28] LABS: MEAN CORPUSCULAR HEMOGLOBIN 29.4 pg (27.0-33.0); MEAN CORPUSCULAR HGB CONC 31.5 g/dl (32.0-36.5); MEAN CORPUSCULAR VOLUME 93.2 fl (80.0-96.0); PLATELET COUNT, AUTOMATED 170 10^3/uL (150-450); RED CELL DISTRIBUTION WIDTH 16.4 % (11.5-14.5); WHITE BLOOD COUNT 7.7 10^3/uL (4.0-10.0)
[2017-07-13 05:43] LABS: CREATININE FOR GFR 1.83 MG/DL (0.70-1.30); GLOMERULAR FILTRATION RATE 38.8 (>42); MAGNESIUM LEVEL 1.9 MG/DL (1.8-2.4)
[2017-07-13 05:53] VITALS: BP 101/56
[2017-07-13] MEDS: SLF 3 ML SYR IV SCH (06:08)
[2017-07-13] MEDS: LEVOTHYROXINE 25MCG TABLET (0.025MG) PO SCH (06:08)
[2017-07-13] MEDS: ISOSORBIDE DIN. (ISORDIL) 5 MG TAB PO SCH ×2 (07:00→11:55)
[2017-07-13] MEDS: HumaLOG INSULIN (NovoLOG) PER UNIT SC SCH ×2 (07:27→11:54)
[2017-07-13 07:45] VITALS: BP 94/62
--- NOTE | 2017-07-13 08:31 | IPN ---
DATE: 07/13/2017 Mr. Morejon continues to complain about pain in his feet, but reports that his dyspnea is at his baseline. He denies any paroxysmal nocturnal dyspnea (PND) or orthopnea and did not have any chest discomfort. Vital signs this morning: Blood pressure 94/62. Heart rate has been in 70s to 90s. He is afebrile. Saturation 100% on room air. Weight is documented at 67.2 kg which is actually identical to his admission weight, but probably not accurate. He is alert and oriented and appropriate. His jugular venous pulse (JVP)in sitting position is not visible above the clavicle. Lungs are clear to auscultation with good air movement. Heart exam reveals regular rhythm. There is a murmur towards the base of the sternum, not more than maybe 2/6 intensity. Abdomen is soft, nontender. There is still 1+ edema and there is some erythema and pinkish discoloration of both ankles and feet. Laboratory-[facility], basic metabolic panel reveals potassium 4.0, BUN 46, creatinine 1.8 and glucose 99. CBC: Hemoglobin 11.3, hematocrit 35, platelet count 170. ASSESSMENT/PLAN: Mr. Morejon is a 71-year-old man who has known ischemic cardiomyopathy with severe LV systolic dysfunction and was admitted with acute exacerbation. He fairly rapidly improved with IV diuretics. Currently, I believe he is close to his euvolemic state and he is asymptomatic with his sedentary activity Unfortunately his blood pressure is very low and consequently his medications cannot be successfully titrated up. I think it is appropriate to switch him to oral diuretics. At his baseline, he was on 80 mg of torsemide daily and I would probably change it to 100 mg for the simplicity of administration. His second dominant problem is pain in his feet. It is very likely secondary to diabetic neuropathy. The noninvasive arterial study was arguing against advanced peripheral vascular disease (PVD). He is seen by the pain management clinic.
[2017-07-13] MEDS: CARVedilol 3.125 MG TAB PO SCH (08:51)
[2017-07-13] MEDS: **hydrALAZINE** 10 MG TAB PO SCH (08:51)
[2017-07-13] MEDS: SENOKOT S TAB PO SCH (08:52)
[2017-07-13] MEDS: DULoxetine 20 MG CAP (CYMBALTA) PO SCH (08:52)
[2017-07-13] MEDS: HEPARIN SOD (PORCINE) 5000 UNITS/ML VIAL SC SCH (08:52)
[2017-07-13] MEDS: CitaloPRAM (CeleXA) 10 MG TABLET PO SCH (08:53)
[2017-07-13] MEDS: MAGNESIUM OXIDE 400 MG TAB (MAG-OX) PO SCH (08:53)
[2017-07-13] MEDS: POTASSIUM CHLORIDE 10 MEQ SR TABLET PO SCH (08:53)
[2017-07-13] MEDS: LIDOCAINE 5% (LIDODERM) PATCH TD SCH (08:54)
[2017-07-13] MEDS ORDERED: TORSEMIDE 100 MG TAB PO SCH (09:00)
[2017-07-13] MEDS ORDERED: CYMB1CAP4 PO (10:04)
[2017-07-13] MEDS ORDERED: TORS100T PO (10:04)
[2017-07-13] MEDS ORDERED: LEVO25TA5 PO (10:04)
[2017-07-13 11:45] VITALS: BP 101/58
[2017-07-13 11:55] VITALS: BP 101/58
--- NOTE | 2017-07-13 12:39 | DSES ---
DATE OF ADMISSION: 07/08/2017 DATE OF DISCHARGE: 07/13/17 CLICKER OPERATOR: Dr. Echevarria PRIMARY CARE PROVIDER: Liliya Newman, FINAL DIAGNOSES: 1. Chest pain with acute decompensated systolic heart failure (ejection fraction 20%). 2. Ischemic cardiomyopathy. 3. Chronic kidney disease (CKD). 4. Diabetes. 5. Peripheral neuropathy. 6. Bilateral lower extremity pain. 7. Depression. 8. Deconditioned. 9. Human rhinovirus, bronchiolitis. 10. Hypothyroidism. HISTORY OF PRESENT ILLNESS: This is a 71-year-old male patient with underlying medical condition, congestive heart failure with ejection fraction (EF) of 25% with automatic implantable cardioverter defibrillator (AICD), chronic hypoxic respiratory failure, peripheral neuropathy CKD, coronary artery disease, venous stasis, ischemic cardiomyopathy, pulmonary artery hypertension, BPH, diabetes mellitus. Patient had increased shortness of breath. As per patient, he was in the process of moving, had missed a couple doses of medication and has intermittent chest pain for 2 days, comes and goes, lasting about 1-2 hours, associated with shortness of breath. Had a cough productive phlegm, and also chronic LE edema, needs to sleep on a chair, with orthopnea. Lower extremity pain with neuropathy. Had trouble getting around. HOSPITAL COURSE: Patient is admitted to the hospital. Cardiac enzymes appreciated. Patient was diuresed. Kidney function was monitored, which improved progressively with diuresis. Patient's thyroid function was also monitored. Cardiology was consulted. Echo was done. Pain management was consulted. Patient's pain regimen was adjusted by pain management. Physical therapy was done. Patient's condition progressively improved. Currently back to baseline. Patient and family services (PFS) was consulted to verify home services and visiting nurse services. Patient refused assisted living or chcf placement, and elected to go home. Physical therapy has passed the patient. Patient tolerating oral. Ready for discharge for further care at home. VITAL SIGNS: Temperature 96.9, pulse 76, respiration 19, blood pressure 94/62, pulse oximetry 100% on room air. GENERAL: Patient alert, comfortable, in no acute distress. HEENT: Normocephalic, atraumatic. Diminished breath sounds bilateral. No wheeze, rales or rhonchi. CARDIAC: Distant heart sound, regular, S1 and S2. Systolic murmur noted. ABDOMEN: Soft, nontender. EXTREMITIES: 2+ bilateral lower extremity edema. Tender to palpation. LABORATORY: Sodium 136, potassium 4, chloride 100, bicarbonate 30, BUN 46, creatinine 1.83. DISCHARGE MEDICATION: - Cymbalta 20 mg by mouth daily - levothyroxine 25 mcg by mouth daily - torsemide 100 mg by mouth daily - acetaminophen/hydrocodone 7.5/325 mg by mouth four times a day as needed - aspirin 81 mg by mouth daily - Coreg 3.125 mg by mouth twice a day - Celexa 10 mg by mouth daily - cyclobenzaprine 5 mg by mouth three times a day as needed - digoxin 125 mcg by mouth every 3 days - finasteride 5 mg by mouth nightly - Flonase nasal spray daily as needed - lidocaine ointment 5% as needed - metolazone 2.5 mg every 2 days - omeprazole 40 mg by mouth nightly - potassium chloride 30 mEq by mouth daily - Senna Plus one tablet by mouth daily - Flomax 0.4 mg by mouth daily DISCHARGE INSTRUCTION: Patient is instructed to followup with his primary care provider in 7 days, [employer]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 Further workup for hypothyroidism, as per primary care provider, followup thyroid function. Daily weight. Return to the hospital if symptoms worsen. Encouraged to be compliant with medication. Poor overall prognosis. High readmission risk. MTDD
== END 2017-07-13 13:25 | disposition home or self-care (01) | DRG 292 ==
LOC: M ED 10:41 → M ED INP 17:45 → M PCU 22:20
PROVIDERS: ADMIT Internal Medicine; ATTEND Hospitalist
DX: I50.23 Acute on chronic systolic (congestive) heart failure (principal); J96.11 Chronic respiratory failure with hypoxia; J21.8 Acute bronchiolitis due to other specified organisms; E11.42 Type 2 diabetes mellitus with diabetic polyneuropathy; E11.22 Type 2 diabetes mellitus with diabetic chronic kidney disease; N18.9 Chronic kidney disease, unspecified; I25.10 Atherosclerotic heart disease of native coronary artery without angina pectoris; I87.2 Venous insufficiency (chronic) (peripheral); I25.5 Ischemic cardiomyopathy; I27.20 Pulmonary hypertension, unspecified; Z66 Do not resuscitate; F32.9 Major depressive disorder, single episode, unspecified; I34.0 Nonrheumatic mitral (valve) insufficiency; N40.0 Benign prostatic hyperplasia without lower urinary tract symptoms; I25.2 Old myocardial infarction; M19.90 Unspecified osteoarthritis, unspecified site; E03.9 Hypothyroidism, unspecified; E83.42 Hypomagnesemia; Z95.5 Presence of coronary angioplasty implant and graft; Z95.810 Presence of automatic (implantable) cardiac defibrillator; Z79.82 Long term (current) use of aspirin; Z79.899 Other long term (current) drug therapy; Z91.14 Patient's other noncompliance with medication regimen; Z96.652 Presence of left artificial knee joint; Z91.11 Patient's noncompliance with dietary regimen

== ENCOUNTER → 2017-09-24 | Outpatient (CLI) | payer MEDICARE, MEDICAID | LOC: M RAD 15:59 | DX: M25.552 Pain in left hip (principal); M25.512 Pain in left shoulder; M16.11 Unilateral primary osteoarthritis, right hip; Z96.642 Presence of left artificial hip joint; Z95.0 Presence of cardiac pacemaker ==

== ENCOUNTER 2017-09-27 08:28 | Inpatient (IN) | payer MEDICARE, MEDICAID ==
[2017-09-27 08:51] LABS: BASO # 0.1 10^3/uL (0.0-0.2); BASO % 0.3 % (0.0-1.0); EOS % 0.1 % (0.0-3.0); HEMATOCRIT 40.3 % (42.0-52.0); HEMOGLOBIN 13.7 g/dl (14.0-18.0); IMMATURE GRANULOCYTE # 0.4 10^3/uL (0-0); LYMPH # 4.2 10^3/uL (1.5-4.5); LYMPH % 18.8 % (24.0-44.0); MEAN CORPUSCULAR HEMOGLOBIN 28.5 pg (27.0-33.0); MONO # 1.1 10^3/uL (0.0-0.8); MONO % 4.9 % (0.0-5.0); NEUTROPHILS # 16.6 10^3/uL (1.8-7.7); NEUTROPHILS % 73.9 % (36.0-66.0); PLATELET COUNT, AUTOMATED 573 10^3/uL (150-450); WHITE BLOOD COUNT 22.5 10^3/uL (4.0-10.0)
[2017-09-27] MEDS: TETANUS/DIPHTHERIA TOX ADSORB ADULT 0.5ML SYR/VIAL (90714) IM (08:52)
[2017-09-27 09:06] LABS: ANION GAP 17 MEQ/L (8-16); BLOOD UREA NITROGEN 149 MG/DL (7-18); CALCIUM LEVEL 10.6 MG/DL (8.8-10.2); CARBON DIOXIDE LEVEL 35 MEQ/L (21-32); CHLORIDE LEVEL 75 MEQ/L (98-107); CPK CREATINE PHOSPHOKINASE 22 U/L (39-308); CREATININE FOR GFR 4.67 MG/DL (0.70-1.30); GLOMERULAR FILTRATION RATE 13.2 (>42); GLUCOSE, FASTING 261 MG/DL (70-100); POTASSIUM SERUM 3.3 MEQ/L (3.5-5.1); SODIUM LEVEL 127 MEQ/L (136-145); TROPONIN I 0.05 NG/ML (< 0.10)
[2017-09-27] MEDS: ONDANSETRON 4MG/2ML VIAL (J2405) IV ×2 (09:15→16:53)
[2017-09-27 09:17] LABS: DIGOXIN LEVEL 1.2 NG/ML (0.5-2.0); MB/CK RELATIVE INDEX 4.54 (< OR =4)
[2017-09-27] MEDS: NS 500 ML IV (11:00)
[2017-09-27] MEDS ORDERED: FLUTICASONE PROP 0.05% NASAL SPRAY 16 GM (FLONASE) (12:00)
[2017-09-27] MEDS: CEFTRIAXONE SOD 1 GM in APPROPRIATE DILUENT 1 EA IV (12:00)
[2017-09-27] MEDS: POTASSIUM CHLORIDE 10 MEQ SR TABLET PO (12:19)
[2017-09-27] MEDS: NS 1,000 ML IV ×2 (13:00→23:45)
[2017-09-27] MEDS: HEPARIN SOD (PORCINE) 5000 UNITS/ML VIAL SC ×3 (14:00→21:53)
[2017-09-27] MEDS: SENOKOT S TAB PO ×2 (15:15→20:59)
[2017-09-27] MEDS: ACETAMINOPHEN TAB 650MG DOSE (2X325MG) PO ×2 (15:15→21:00)
[2017-09-27] MEDS: LEVOTHYROXINE 25MCG TABLET (0.025MG) PO (15:16)
[2017-09-27] MEDS: DIGOXIN 0.125 MG TAB PO (15:16)
[2017-09-27] MEDS: CARVedilol 3.125 MG TAB PO ×2 (15:17→20:58)
[2017-09-27 15:47] LABS: CK-MB VALUE MASS 1.4 NG/ML (0.0-3.6); CPK CREATINE PHOSPHOKINASE 22 U/L (39-308); MB/CK RELATIVE INDEX 6.36 (< OR =4); TROPONIN I 0.05 NG/ML (< 0.10)
[2017-09-27] MEDS: CitaloPRAM (CeleXA) 10 MG TABLET PO (16:54)
[2017-09-27] MEDS: DULoxetine 20 MG CAP (CYMBALTA) PO (16:54)
[2017-09-27] MEDS: NS 0.45% 1,000 ML IV (17:40)
[2017-09-27 18:03] LABS: BASO % 0.2 % (0.0-1.0); EOS % 0.1 % (0.0-3.0); HEMATOCRIT 29.6 % (42.0-52.0); IMMATURE GRANULOCYTE # 0.3 10^3/uL (0-0); IMMATURE GRANULOCYTE % 1.1 % (0-0); LYMPH # 2.4 10^3/uL (1.5-4.5); LYMPH % 10.3 % (24.0-44.0); MEAN CORPUSCULAR HEMOGLOBIN 29.1 pg (27.0-33.0); MEAN CORPUSCULAR HGB CONC 34.5 g/dl (32.0-36.5); MEAN CORPUSCULAR VOLUME 84.3 fl (80.0-96.0); MONO # 1.4 10^3/uL (0.0-0.8); MONO % 5.9 % (0.0-5.0); NEUTROPHILS # 19.5 10^3/uL (1.8-7.7); NEUTROPHILS % 82.4 % (36.0-66.0); RED BLOOD COUNT 3.51 10^6/uL (4.30-6.10); WHITE BLOOD COUNT 23.6 10^3/uL (4.0-10.0)
[2017-09-27 18:05] LABS: VENOUS BASE EXCESS 7.4 (-2.0-2.0); VENOUS HCO3 32.8 MEQ/L (23.0-27.0); VENOUS O2 SATURATION 82.7 % (60.0-80.0); VENOUS PARTIAL PRESSURE CO2 49.8 mmHg (38.0-50.0); VENOUS PH 7.436 UNITS (7.330-7.430); VENOUS STANDARD HCO3 30.9 MEQ/L; VENOUS TOTAL CO2 34.3 MEQ/L (24.0-28.0)
[2017-09-27 18:09] LABS: HEMOGLOBIN 10.2 g/dl (14.0-18.0); PLATELET COUNT, AUTOMATED 343 10^3/uL (150-450)
[2017-09-27 18:26] LABS: ALBUMIN 3.1 GM/DL (3.2-5.2); ALBUMIN/GLOBULIN RATIO 0.72 (1.00-1.93); ALKALINE PHOSPHATASE 279 U/L (45-117); ALT/SGPT 10 U/L (12-78); ANION GAP 15 MEQ/L (8-16); AST/SGOT 14 U/L (7-37); BLOOD UREA NITROGEN 143 MG/DL (7-18); CALCIUM LEVEL 8.7 MG/DL (8.8-10.2); CARBON DIOXIDE LEVEL 33 MEQ/L (21-32); CHLORIDE LEVEL 80 MEQ/L (98-107); CREATININE FOR GFR 4.34 MG/DL (0.70-1.30); GLOMERULAR FILTRATION RATE 14.3 (>42); GLUCOSE, FASTING 144 MG/DL (70-100); POTASSIUM SERUM 3.3 MEQ/L (3.5-5.1); SODIUM LEVEL 128 MEQ/L (136-145); TOTAL PROTEIN 7.4 GM/DL (6.4-8.2)
[2017-09-27 18:29] LABS: LACTIC ACID SEPSIS PROTOCOL 1.4 MMOL/L (0.4-2.0)
[2017-09-27 19:30] LABS: SODIUM,RANDOM URINE 12 MEQ/L
[2017-09-27 19:31] LABS: APPEARANCE, URINE CLEAR (CLEAR); BACTERIA, URINE AUTO NEGATIVE (NEGATIVE); BILIRUBIN, URINE AUTO NEGATIVE (NEGATIVE); BLOOD, URINE BLOOD 2+ (NEGATIVE); COLOR, URINE YELLOW (YELLOW); GLUCOSE, URINE (UA) AUTO NEGATIVE (NEGATIVE); KETONE, URINE AUTO NEGATIVE (NEGATIVE); LEUKOCYTE ESTERASE, URINE AUTO NEGATIVE (NEGATIVE); NITRITE, URINE AUTO NEGATIVE (NEGATIVE); PROTEIN, URINE AUTO NEGATIVE (NEGATIVE); RBC, URINE AUTO 1 /HPF (0-3); SPECIFIC GRAVITY URINE AUTO 1.015 (1.002-1.035); SQUAMOUS EPITHELIAL CELL UR AU 0 /HPF (0-6); UROBILINOGEN, URINE AUTO 0.2 mg/dL (0.0-2.0); WBC, URINE AUTO 1 /HPF (0-3)
[2017-09-27] MEDS: OMEPRAZOLE 20 MG CAP PO (20:58)
[2017-09-27] MEDS: ASPIRIN 81 MG ENTERIC TAB PO (20:59)
[2017-09-27] MEDS: CLOPIDOGREL 75 MG TAB PO (20:59)
[2017-09-27] MEDS: TAMSULOSIN 0.4 MG CAP PO (20:59)
[2017-09-27] MEDS: FINASTERIDE 5 MG TAB PO (20:59)
[2017-09-27 23:38] LABS: CPK CREATINE PHOSPHOKINASE 19 U/L (39-308); TROPONIN I 0.06 NG/ML (< 0.10)
[2017-09-27 23:39] LABS: CK-MB VALUE MASS 1.4 NG/ML (0.0-3.6); MB/CK RELATIVE INDEX 7.36 (< OR =4)
[2017-09-28] MEDS: HEPARIN SOD (PORCINE) 5000 UNITS/ML VIAL SC ×3 (05:01→21:44)
[2017-09-28 05:17] LABS: BASO % 0.2 % (0.0-1.0); EOS # 0.2 10^3/uL (0.0-0.50); EOS % 1.2 % (0.0-3.0); HEMATOCRIT 25.6 % (42.0-52.0); HEMOGLOBIN 8.7 g/dl (14.0-18.0); IMMATURE GRANULOCYTE # 0.2 10^3/uL (0-0); IMMATURE GRANULOCYTE % 1.4 % (0-0); LYMPH # 2.4 10^3/uL (1.5-4.5); LYMPH % 16.3 % (24.0-44.0); MEAN CORPUSCULAR HEMOGLOBIN 28.2 pg (27.0-33.0); MEAN CORPUSCULAR VOLUME 82.8 fl (80.0-96.0); MONO # 0.9 10^3/uL (0.0-0.8); MONO % 6.2 % (0.0-5.0); NEUTROPHILS % 74.7 % (36.0-66.0); PLATELET COUNT, AUTOMATED 299 10^3/uL (150-450); RED BLOOD COUNT 3.09 10^6/uL (4.30-6.10); WHITE BLOOD COUNT 14.8 10^3/uL (4.0-10.0)
[2017-09-28] MEDS: LEVOTHYROXINE 25MCG TABLET (0.025MG) PO (05:40)
[2017-09-28 05:47] LABS: ALBUMIN 2.5 GM/DL (3.2-5.2); ALBUMIN/GLOBULIN RATIO 0.58 (1.00-1.93); ALKALINE PHOSPHATASE 236 U/L (45-117); AST/SGOT 14 U/L (7-37); BILIRUBIN,TOTAL 0.9 MG/DL (0.2-1.0); BLOOD UREA NITROGEN 135 MG/DL (7-18); CALCIUM LEVEL 8.5 MG/DL (8.8-10.2); CARBON DIOXIDE LEVEL 31 MEQ/L (21-32); CHLORIDE LEVEL 86 MEQ/L (98-107); CREATININE FOR GFR 3.91 MG/DL (0.70-1.30); GLOMERULAR FILTRATION RATE 16.1 (>42); GLUCOSE, FASTING 119 MG/DL (70-100); MAGNESIUM LEVEL 1.7 MG/DL (1.8-2.4); TOTAL PROTEIN 6.8 GM/DL (6.4-8.2)
[2017-09-28 05:55] LABS: ALT/SGPT 8 U/L (12-78)
[2017-09-28 06:08] LABS: ANION GAP 12 MEQ/L (8-16); POTASSIUM SERUM 2.7 MEQ/L (3.5-5.1); SODIUM LEVEL 129 MEQ/L (136-145)
[2017-09-28] MEDS: MAG SULF 1GM/100ML (MAG RUN) 1 GM in APPROPRIATE DILUENT 1 EA IV (06:55)
[2017-09-28] MEDS: POTASSIUM CHLORIDE 10 MEQ SR TABLET PO ×2 (06:55→08:58)
[2017-09-28] MEDS: ACETAMINOPHEN TAB 650MG DOSE (2X325MG) PO ×2 (07:43→11:37)
[2017-09-28] MEDS: CitaloPRAM (CeleXA) 10 MG TABLET PO (09:00)
[2017-09-28] MEDS: SENOKOT S TAB PO ×2 (10:22→21:45)
[2017-09-28] MEDS: CARVedilol 3.125 MG TAB PO ×2 (10:23→21:00)
[2017-09-28] MEDS: DULoxetine 20 MG CAP (CYMBALTA) PO (10:25)
[2017-09-28] MEDS: KCL 20MEQ in NS 1000ML 1,000 ML IV ×2 (11:33→23:57)
[2017-09-28] MEDS: CEFTRIAXONE SOD 1 GM in APPROPRIATE DILUENT 1 EA IV (11:38)
[2017-09-28] MEDS: AZITHROMYCIN INJ 500 MG, VIAL MATE ADAPTER 1 EACH in D5W 250 ML IV (12:44)
[2017-09-28 12:46] LABS: HEMATOCRIT 25.2 % (42.0-52.0); HEMOGLOBIN 8.7 g/dl (14.0-18.0); MEAN CORPUSCULAR HEMOGLOBIN 28.8 pg (27.0-33.0); MEAN CORPUSCULAR HGB CONC 34.5 g/dl (32.0-36.5); MEAN CORPUSCULAR VOLUME 83.4 fl (80.0-96.0); PLATELET COUNT, AUTOMATED 260 10^3/uL (150-450); RED BLOOD COUNT 3.02 10^6/uL (4.30-6.10); RED CELL DISTRIBUTION WIDTH 13.9 % (11.5-14.5); WHITE BLOOD COUNT 13.7 10^3/uL (4.0-10.0)
[2017-09-28 12:56] LABS: APPEARANCE, URINE CLEAR (CLEAR); BACTERIA, URINE AUTO 1+ (NEGATIVE); BILIRUBIN, URINE AUTO NEGATIVE (NEGATIVE); BLOOD, URINE BLOOD NEGATIVE (NEGATIVE); COLOR, URINE STRAW (YELLOW); GLUCOSE, URINE (UA) AUTO NEGATIVE (NEGATIVE); KETONE, URINE AUTO NEGATIVE (NEGATIVE); LEUKOCYTE ESTERASE, URINE AUTO NEGATIVE (NEGATIVE); NITRITE, URINE AUTO NEGATIVE (NEGATIVE); PROTEIN, URINE AUTO NEGATIVE (NEGATIVE); RBC, URINE AUTO 0 /HPF (0-3); SPECIFIC GRAVITY URINE AUTO 1.006 (1.002-1.035); SQUAMOUS EPITHELIAL CELL UR AU 0 /HPF (0-6); UROBILINOGEN, URINE AUTO 0.2 mg/dL (0.0-2.0); WBC, URINE AUTO 0 /HPF (0-3)
[2017-09-28 13:00] LABS: OSMOLALITY URINE 287 MOSM/KG (500-800)
[2017-09-28 13:00] LABS: OSMOLALITY SERUM 312 MOSM/KG (280-301)
[2017-09-28 13:12] LABS: TOTAL PROTEIN,RANDOM URINE 10.6 MG/DL (0.0-12.0)
[2017-09-28 13:15] LABS: ANION GAP 11 MEQ/L (8-16); BLOOD UREA NITROGEN 123 MG/DL (7-18); CALCIUM LEVEL 8.2 MG/DL (8.8-10.2); CARBON DIOXIDE LEVEL 30 MEQ/L (21-32); CHLORIDE LEVEL 90 MEQ/L (98-107); CREATININE FOR GFR 3.21 MG/DL (0.70-1.30); GLOMERULAR FILTRATION RATE 20.2 (>42); GLUCOSE, FASTING 132 MG/DL (70-100); MAGNESIUM LEVEL 2.3 MG/DL (1.8-2.4); POTASSIUM SERUM 3.3 MEQ/L (3.5-5.1); SODIUM LEVEL 131 MEQ/L (136-145)
[2017-09-28] MEDS: OMEPRAZOLE 20 MG CAP PO (21:45)
[2017-09-28] MEDS: TAMSULOSIN 0.4 MG CAP PO (21:45)
[2017-09-28] MEDS: CLOPIDOGREL 75 MG TAB PO (21:45)
[2017-09-28] MEDS: ASPIRIN 81 MG ENTERIC TAB PO (21:45)
[2017-09-28] MEDS: FINASTERIDE 5 MG TAB PO (21:45)
[2017-09-29 06:20] LABS: BASO % 0.3 % (0.0-1.0); EOS # 0.1 10^3/uL (0.0-0.50); EOS % 1.2 % (0.0-3.0); HEMOGLOBIN 8.3 g/dl (14.0-18.0); IMMATURE GRANULOCYTE # 0.4 10^3/uL (0-0); IMMATURE GRANULOCYTE % 3.4 % (0-0); LYMPH # 2.1 10^3/uL (1.5-4.5); LYMPH % 20.2 % (24.0-44.0); MEAN CORPUSCULAR HEMOGLOBIN 28.6 pg (27.0-33.0); MEAN CORPUSCULAR HGB CONC 33.2 g/dl (32.0-36.5); MEAN CORPUSCULAR VOLUME 86.2 fl (80.0-96.0); MONO # 0.9 10^3/uL (0.0-0.8); MONO % 8.6 % (0.0-5.0); NEUTROPHILS % 66.3 % (36.0-66.0); PLATELET COUNT, AUTOMATED 241 10^3/uL (150-450); WHITE BLOOD COUNT 10.5 10^3/uL (4.0-10.0)
[2017-09-29] MEDS: HEPARIN SOD (PORCINE) 5000 UNITS/ML VIAL SC ×3 (06:23→21:14)
[2017-09-29] MEDS: LEVOTHYROXINE 25MCG TABLET (0.025MG) PO (06:23)
[2017-09-29 06:36] LABS: ALBUMIN 2.5 GM/DL (3.2-5.2); ALBUMIN/GLOBULIN RATIO 0.58 (1.00-1.93); ALKALINE PHOSPHATASE 213 U/L (45-117); ALT/SGPT 8 U/L (12-78); ANION GAP 8 MEQ/L (8-16); AST/SGOT 11 U/L (7-37); BILIRUBIN,TOTAL 0.7 MG/DL (0.2-1.0); BLOOD UREA NITROGEN 90 MG/DL (7-18); CALCIUM LEVEL 8.8 MG/DL (8.8-10.2); CARBON DIOXIDE LEVEL 33 MEQ/L (21-32); CHLORIDE LEVEL 97 MEQ/L (98-107); CREATININE FOR GFR 2.18 MG/DL (0.70-1.30); GLOMERULAR FILTRATION RATE 31.6 (>42); GLUCOSE, FASTING 133 MG/DL (70-100); MAGNESIUM LEVEL 2.1 MG/DL (1.8-2.4); POTASSIUM SERUM 3.2 MEQ/L (3.5-5.1); SODIUM LEVEL 138 MEQ/L (136-145); TOTAL PROTEIN 6.8 GM/DL (6.4-8.2)
[2017-09-29] MEDS: SENOKOT S TAB PO ×2 (10:03→21:14)
[2017-09-29] MEDS: CitaloPRAM (CeleXA) 10 MG TABLET PO (10:03)
[2017-09-29] MEDS: DOCUSATE SODIUM 100 MG CAP PO ×2 (10:03→21:14)
[2017-09-29] MEDS: DULoxetine 20 MG CAP (CYMBALTA) PO (10:03)
[2017-09-29] MEDS: POTASSIUM CHLORIDE 10 MEQ SR TABLET PO ×2 (10:03→13:24)
[2017-09-29] MEDS: CARVedilol 3.125 MG TAB PO ×2 (10:04→21:14)
[2017-09-29 12:28] LABS: HEMATOCRIT 24.9 % (42.0-52.0); HEMOGLOBIN 8.2 g/dl (14.0-18.0)
[2017-09-29] MEDS: CEFTRIAXONE SOD 1 GM in APPROPRIATE DILUENT 1 EA IV (13:22)
[2017-09-29] MEDS: AZITHROMYCIN INJ 500 MG, VIAL MATE ADAPTER 1 EACH in D5W 250 ML IV (13:22)
[2017-09-29 13:27] LABS: IRON (FE) 37 UG/DL (65-175); PERCENT SATURATION 16.8 % (19.7-50.0); TOTAL IRON BINDING CAPACITY 220 UG/DL (250-450)
[2017-09-29] MEDS: ACETAMINOPHEN TAB 650MG DOSE (2X325MG) PO (14:01)
[2017-09-29] MEDS: ANEXSIA, NORCO 7.5MG/325MG TABLET(HYDROCODONE/APAP) PO (15:01)
[2017-09-29] MEDS: KCL 20MEQ in NS 1000ML 1,000 ML IV (15:58)
[2017-09-29] MEDS: OMEPRAZOLE 20 MG CAP PO (21:13)
[2017-09-29] MEDS: TAMSULOSIN 0.4 MG CAP PO (21:13)
[2017-09-29] MEDS: CLOPIDOGREL 75 MG TAB PO (21:14)
[2017-09-29] MEDS: FINASTERIDE 5 MG TAB PO (21:14)
[2017-09-29] MEDS: ASPIRIN 81 MG ENTERIC TAB PO (21:14)
[2017-09-30] MEDS: ANEXSIA, NORCO 7.5MG/325MG TABLET(HYDROCODONE/APAP) PO ×4 (00:05→18:44)
[2017-09-30] MEDS ORDERED: SLF 3 ML SYR IV (01:30)
[2017-09-30 05:59] LABS: BASO # 0.1 10^3/uL (0.0-0.2); BASO % 0.4 % (0.0-1.0); EOS # 0.2 10^3/uL (0.0-0.50); EOS % 1.7 % (0.0-3.0); HEMATOCRIT 23.5 % (42.0-52.0); HEMOGLOBIN 7.6 g/dl (14.0-18.0); IMMATURE GRANULOCYTE # 0.6 10^3/uL (0-0); IMMATURE GRANULOCYTE % 4.6 % (0-0); LYMPH # 2.9 10^3/uL (1.5-4.5); LYMPH % 24.4 % (24.0-44.0); MEAN CORPUSCULAR HEMOGLOBIN 28.7 pg (27.0-33.0); MEAN CORPUSCULAR HGB CONC 32.3 g/dl (32.0-36.5); MEAN CORPUSCULAR VOLUME 88.7 fl (80.0-96.0); MONO % 8.5 % (0.0-5.0); NEUTROPHILS # 7.2 10^3/uL (1.8-7.7); NEUTROPHILS % 60.4 % (36.0-66.0); PLATELET COUNT, AUTOMATED 221 10^3/uL (150-450); RED BLOOD COUNT 2.65 10^6/uL (4.30-6.10); RED CELL DISTRIBUTION WIDTH 14.4 % (11.5-14.5); WHITE BLOOD COUNT 11.9 10^3/uL (4.0-10.0)
[2017-09-30 06:20] LABS: ALBUMIN 2.4 GM/DL (3.2-5.2); ALBUMIN/GLOBULIN RATIO 0.63 (1.00-1.93); ALKALINE PHOSPHATASE 197 U/L (45-117); ALT/SGPT 9 U/L (12-78); ANION GAP 6 MEQ/L (8-16); AST/SGOT 15 U/L (7-37); BILIRUBIN,TOTAL 0.5 MG/DL (0.2-1.0); BLOOD UREA NITROGEN 54 MG/DL (7-18); CALCIUM LEVEL 8.4 MG/DL (8.8-10.2); CARBON DIOXIDE LEVEL 32 MEQ/L (21-32); CHLORIDE LEVEL 100 MEQ/L (98-107); CREATININE FOR GFR 1.61 MG/DL (0.70-1.30); GLOMERULAR FILTRATION RATE 44.9 (>42); GLUCOSE, FASTING 181 MG/DL (70-100); MAGNESIUM LEVEL 1.7 MG/DL (1.8-2.4); POTASSIUM SERUM 4.5 MEQ/L (3.5-5.1); SODIUM LEVEL 138 MEQ/L (136-145); TOTAL PROTEIN 6.2 GM/DL (6.4-8.2)
[2017-09-30] MEDS: HEPARIN SOD (PORCINE) 5000 UNITS/ML VIAL SC ×3 (06:20→20:45)
[2017-09-30] MEDS: LEVOTHYROXINE 25MCG TABLET (0.025MG) PO (06:20)
[2017-09-30] MEDS: SLF 3 ML SYR IV ×3 (06:20→20:46)
[2017-09-30] MEDS: CitaloPRAM (CeleXA) 10 MG TABLET PO (08:06)
[2017-09-30] MEDS: FERROUS SULFATE 325MG TAB PO ×3 (08:06→20:40)
[2017-09-30] MEDS: DOCUSATE SODIUM 100 MG CAP PO ×2 (08:06→20:40)
[2017-09-30] MEDS: SENOKOT S TAB PO ×2 (08:06→20:40)
[2017-09-30] MEDS: MAG SULF 1GM/100ML (MAG RUN) 1 GM in APPROPRIATE DILUENT 1 EA IV (08:06)
[2017-09-30] MEDS: BISACODYL 5 MG TAB PO (08:07)
[2017-09-30] MEDS: DULoxetine 20 MG CAP (CYMBALTA) PO (08:07)
[2017-09-30] MEDS: CARVedilol 3.125 MG TAB PO ×2 (08:07→20:39)
[2017-09-30] MEDS: DIGOXIN 0.125 MG TAB PO (08:07)
[2017-09-30 08:36] LABS: REASON FOR REVIEW COMPREHENSIVE REVIEW; SLIDE REVIEW Report; SOURCE PERIPHERAL SMEAR
[2017-09-30 08:51] LABS: LDH LACTATE DEHYDROGENASE 122 U/L (87-241)
[2017-09-30 09:53] LABS: VITAMIN B12 LEVEL 1467 PG/ML (247-911)
[2017-09-30 09:54] LABS: FOLATE 5.8 NG/ML (>5.4)
[2017-09-30 10:23] LABS: IMMEDIATE SPIN CROSSMATCH 1 2
[2017-09-30] MEDS: MAGNESIUM CITRATE 300 ML BTL PO (10:44)
[2017-09-30] MEDS: CAPSAICIN 0.025% CR 60 GM TOP ×4 (11:00→20:41)
[2017-09-30] MEDS: AZITHROMYCIN 250 MG TAB PO (15:06)
[2017-09-30 19:12] LABS: HEMATOCRIT 33.6 % (42.0-52.0); HEMOGLOBIN 11.4 g/dl (14.0-18.0)
[2017-09-30] MEDS: CLOPIDOGREL 75 MG TAB PO (20:40)
[2017-09-30] MEDS: ASPIRIN 81 MG ENTERIC TAB PO (20:40)
[2017-09-30] MEDS: FINASTERIDE 5 MG TAB PO (20:40)
[2017-09-30] MEDS: OMEPRAZOLE 20 MG CAP PO (20:40)
[2017-09-30] MEDS: AMOXICILLIN 875 MG TAB PO (20:40)
[2017-09-30] MEDS: TAMSULOSIN 0.4 MG CAP PO (20:45)
[2017-10-01 00:06] LABS: BODY FLUID CULTURE Not Indicated (.); LEGIONELLA ANTIGEN URINE Negative (Negative); ORGANISM ID Not indicated. (.); SPECIMEN SOURCE Urine (.); URINE STREP PNEUMONIAE ANTIGEN Negative (Negative)
[2017-10-01 03:35] LABS: BASO # 0.1 10^3/uL (0.0-0.2); BASO % 0.5 % (0.0-1.0); EOS # 0.2 10^3/uL (0.0-0.50); EOS % 1.5 % (0.0-3.0); HEMATOCRIT 33.7 % (42.0-52.0); IMMATURE GRANULOCYTE # 0.6 10^3/uL (0-0); IMMATURE GRANULOCYTE % 3.7 % (0-0); LYMPH # 2.4 10^3/uL (1.5-4.5); MEAN CORPUSCULAR HEMOGLOBIN 29.1 pg (27.0-33.0); MEAN CORPUSCULAR HGB CONC 32.6 g/dl (32.0-36.5); MEAN CORPUSCULAR VOLUME 89.2 fl (80.0-96.0); MONO % 6.1 % (0.0-5.0); NEUTROPHILS # 11.6 10^3/uL (1.8-7.7); NEUTROPHILS % 73.2 % (36.0-66.0); PLATELET COUNT, AUTOMATED 223 10^3/uL (150-450); RED BLOOD COUNT 3.78 10^6/uL (4.30-6.10); RED CELL DISTRIBUTION WIDTH 14.5 % (11.5-14.5); WHITE BLOOD COUNT 15.9 10^3/uL (4.0-10.0)
[2017-10-01 04:05] LABS: ALBUMIN 2.6 GM/DL (3.2-5.2); ALBUMIN/GLOBULIN RATIO 0.58 (1.00-1.93); ALKALINE PHOSPHATASE 204 U/L (45-117); ALT/SGPT 11 U/L (12-78); ANION GAP 3 MEQ/L (8-16); AST/SGOT 17 U/L (7-37); BILIRUBIN,TOTAL 0.7 MG/DL (0.2-1.0); BLOOD UREA NITROGEN 34 MG/DL (7-18); CALCIUM LEVEL 8.7 MG/DL (8.8-10.2); CARBON DIOXIDE LEVEL 35 MEQ/L (21-32); CHLORIDE LEVEL 98 MEQ/L (98-107); CREATININE FOR GFR 1.27 MG/DL (0.70-1.30); GLUCOSE, FASTING 180 MG/DL (70-100); MAGNESIUM LEVEL 2.1 MG/DL (1.8-2.4); POTASSIUM SERUM 5.1 MEQ/L (3.5-5.1); SODIUM LEVEL 136 MEQ/L (136-145); TOTAL PROTEIN 7.1 GM/DL (6.4-8.2)
[2017-10-01] MEDS: HEPARIN SOD (PORCINE) 5000 UNITS/ML VIAL SC ×3 (05:22→20:28)
[2017-10-01] MEDS: LEVOTHYROXINE 25MCG TABLET (0.025MG) PO (05:23)
[2017-10-01] MEDS: ANEXSIA, NORCO 7.5MG/325MG TABLET(HYDROCODONE/APAP) PO (05:23)
[2017-10-01] MEDS: SLF 3 ML SYR IV ×3 (05:24→20:28)
[2017-10-01 08:12] LABS: RETIC HEMOGLOBIN EQUIVALENT 34.8 pg (24-36); RETICULOCYTE # 75.6 10^9/L (17-77); RETICULOCYTE % 2.1 % (0.5-1.5)
[2017-10-01] MEDS: FERROUS SULFATE 325MG TAB PO ×3 (08:23→20:26)
[2017-10-01] MEDS: CitaloPRAM (CeleXA) 10 MG TABLET PO (08:23)
[2017-10-01] MEDS: DULoxetine 30 MG CAP (CYMBALTA) PO (08:24)
[2017-10-01] MEDS: AZITHROMYCIN 250 MG TAB PO (08:24)
[2017-10-01] MEDS: AMOXICILLIN 875 MG TAB PO ×2 (08:24→20:26)
[2017-10-01] MEDS: DOCUSATE SODIUM 100 MG CAP PO ×2 (08:24→20:26)
[2017-10-01] MEDS: SENOKOT S TAB PO ×2 (08:24→20:26)
[2017-10-01 08:25] LABS: INR 1.06; PROTHROMBIN TIME 13.9 SECONDS (12.4-14.5)
[2017-10-01] MEDS: CARVedilol 3.125 MG TAB PO ×2 (08:25→20:27)
[2017-10-01] MEDS: CAPSAICIN 0.025% CR 60 GM TOP ×4 (08:26→20:29)
[2017-10-01 08:41] LABS: C REACTIVE PROTEIN QUANTITATIV 1.34 MG/DL (0.00-0.30); URIC ACID 5.6 MG/DL (3.5-7.2)
[2017-10-01 08:41] LABS: LDH LACTATE DEHYDROGENASE 141 U/L (87-241)
[2017-10-01 09:01] LABS: ERYTHROCYTE SEDIMENTATION RATE 66 mm/hr (0-20)
[2017-10-01] MEDS: TORSEMIDE 20 MG TAB PO ×2 (11:01→16:31)
[2017-10-01] MEDS: ASPIRIN 81 MG ENTERIC TAB PO (20:26)
[2017-10-01] MEDS: OMEPRAZOLE 20 MG CAP PO (20:26)
[2017-10-01] MEDS: TAMSULOSIN 0.4 MG CAP PO (20:26)
[2017-10-01] MEDS: CLOPIDOGREL 75 MG TAB PO (20:27)
[2017-10-01] MEDS: FINASTERIDE 5 MG TAB PO (20:27)
[2017-10-02] MEDS: ANEXSIA, NORCO 7.5MG/325MG TABLET(HYDROCODONE/APAP) PO ×4 (02:53→21:23)
[2017-10-02] MEDS: HEPARIN SOD (PORCINE) 5000 UNITS/ML VIAL SC ×3 (05:32→21:23)
[2017-10-02] MEDS: LEVOTHYROXINE 25MCG TABLET (0.025MG) PO (05:33)
[2017-10-02] MEDS: SLF 3 ML SYR IV ×5 (05:33→22:00)
[2017-10-02 05:57] LABS: BASO # 0.1 10^3/uL (0.0-0.2); BASO % 0.3 % (0.0-1.0); EOS # 0.2 10^3/uL (0.0-0.50); EOS % 1.5 % (0.0-3.0); HEMATOCRIT 34.7 % (42.0-52.0); HEMOGLOBIN 11.3 g/dl (14.0-18.0); IMMATURE GRANULOCYTE # 0.6 10^3/uL (0-0); IMMATURE GRANULOCYTE % 3.6 % (0-0); LYMPH # 2.6 10^3/uL (1.5-4.5); LYMPH % 16.8 % (24.0-44.0); MEAN CORPUSCULAR HGB CONC 32.6 g/dl (32.0-36.5); MONO # 0.8 10^3/uL (0.0-0.8); MONO % 5.2 % (0.0-5.0); NEUTROPHILS # 11.4 10^3/uL (1.8-7.7); NEUTROPHILS % 72.6 % (36.0-66.0); PLATELET COUNT, AUTOMATED 213 10^3/uL (150-450); RED CELL DISTRIBUTION WIDTH 14.5 % (11.5-14.5); WHITE BLOOD COUNT 15.7 10^3/uL (4.0-10.0)
[2017-10-02 06:21] LABS: ALBUMIN 2.7 GM/DL (3.2-5.2); ALBUMIN/GLOBULIN RATIO 0.59 (1.00-1.93); ALKALINE PHOSPHATASE 218 U/L (45-117); ALT/SGPT 10 U/L (12-78); ANION GAP 5 MEQ/L (8-16); AST/SGOT 16 U/L (7-37); BILIRUBIN,TOTAL 0.8 MG/DL (0.2-1.0); BLOOD UREA NITROGEN 31 MG/DL (7-18); CALCIUM LEVEL 8.8 MG/DL (8.8-10.2); CARBON DIOXIDE LEVEL 35 MEQ/L (21-32); CHLORIDE LEVEL 94 MEQ/L (98-107); CREATININE FOR GFR 1.35 MG/DL (0.70-1.30); GLUCOSE, FASTING 147 MG/DL (70-100); MAGNESIUM LEVEL 1.9 MG/DL (1.8-2.4); POTASSIUM SERUM 4.4 MEQ/L (3.5-5.1); SODIUM LEVEL 134 MEQ/L (136-145); TOTAL PROTEIN 7.3 GM/DL (6.4-8.2)
[2017-10-02 08:07] LABS: HAPTOGLOBIN 199 mg/dL (34-200)
[2017-10-02] MEDS: CARVedilol 3.125 MG TAB PO ×2 (08:23→21:24)
[2017-10-02] MEDS: SENOKOT S TAB PO ×2 (08:23→21:23)
[2017-10-02] MEDS: DULoxetine 30 MG CAP (CYMBALTA) PO (08:23)
[2017-10-02] MEDS: DOCUSATE SODIUM 100 MG CAP PO ×2 (08:23→21:23)
[2017-10-02] MEDS: CAPSAICIN 0.025% CR 60 GM TOP ×4 (08:24→21:25)
[2017-10-02] MEDS: FERROUS SULFATE 325MG TAB PO ×3 (08:24→21:22)
[2017-10-02] MEDS: CitaloPRAM (CeleXA) 10 MG TABLET PO (08:24)
[2017-10-02] MEDS: AZITHROMYCIN 250 MG TAB PO (08:24)
[2017-10-02] MEDS: TORSEMIDE 20 MG TAB PO (08:24)
[2017-10-02] MEDS: AMOXICILLIN 875 MG TAB PO (08:24)
[2017-10-02 09:05] LABS: C REACTIVE PROTEIN QUANTITATIV 2.62 MG/DL (0.00-0.30)
[2017-10-02] MEDS ORDERED: SLF 3 ML SYR IV (11:15)
[2017-10-02] MEDS: TORSEMIDE (DEMADEX) 50 MG PER 1/2 TAB PO (16:38)
[2017-10-02] MEDS: TAMSULOSIN 0.4 MG CAP PO (21:22)
[2017-10-02] MEDS: OMEPRAZOLE 20 MG CAP PO (21:22)
[2017-10-02] MEDS: ASPIRIN 81 MG ENTERIC TAB PO (21:23)
[2017-10-02] MEDS: FINASTERIDE 5 MG TAB PO (21:23)
[2017-10-02] MEDS: CLOPIDOGREL 75 MG TAB PO (21:23)
[2017-10-03 05:03] LABS: BASO # 0.1 10^3/uL (0.0-0.2); BASO % 0.5 % (0.0-1.0); EOS # 0.2 10^3/uL (0.0-0.50); EOS % 1.6 % (0.0-3.0); HEMATOCRIT 31.5 % (42.0-52.0); HEMOGLOBIN 10.4 g/dl (14.0-18.0); IMMATURE GRANULOCYTE # 0.5 10^3/uL (0-0); LYMPH # 2.1 10^3/uL (1.5-4.5); LYMPH % 16.2 % (24.0-44.0); MEAN CORPUSCULAR HEMOGLOBIN 28.9 pg (27.0-33.0); MEAN CORPUSCULAR VOLUME 87.5 fl (80.0-96.0); MONO # 0.8 10^3/uL (0.0-0.8); MONO % 6.3 % (0.0-5.0); NEUTROPHILS # 9.2 10^3/uL (1.8-7.7); NEUTROPHILS % 71.4 % (36.0-66.0); PLATELET COUNT, AUTOMATED 206 10^3/uL (150-450); RED CELL DISTRIBUTION WIDTH 14.3 % (11.5-14.5)
[2017-10-03 05:23] LABS: ALBUMIN 2.5 GM/DL (3.2-5.2); ALBUMIN/GLOBULIN RATIO 0.56 (1.00-1.93); ALKALINE PHOSPHATASE 268 U/L (45-117); ALT/SGPT 23 U/L (12-78); ANION GAP 7 MEQ/L (8-16); AST/SGOT 52 U/L (7-37); BILIRUBIN,TOTAL 1.2 MG/DL (0.2-1.0); BLOOD UREA NITROGEN 35 MG/DL (7-18); CALCIUM LEVEL 8.2 MG/DL (8.8-10.2); CARBON DIOXIDE LEVEL 33 MEQ/L (21-32); CHLORIDE LEVEL 92 MEQ/L (98-107); CREATININE FOR GFR 1.39 MG/DL (0.70-1.30); GLOMERULAR FILTRATION RATE 53.2 (>42); GLUCOSE, FASTING 172 MG/DL (70-100); MAGNESIUM LEVEL 1.7 MG/DL (1.8-2.4); SODIUM LEVEL 132 MEQ/L (136-145)
[2017-10-03] MEDS: SLF 3 ML SYR IV ×2 (06:00)
[2017-10-03] MEDS: LEVOTHYROXINE 25MCG TABLET (0.025MG) PO (06:32)
[2017-10-03] MEDS: HEPARIN SOD (PORCINE) 5000 UNITS/ML VIAL SC ×3 (06:32→21:17)
[2017-10-03] MEDS: ANEXSIA, NORCO 7.5MG/325MG TABLET(HYDROCODONE/APAP) PO ×3 (06:33→21:18)
[2017-10-03] MEDS: SENOKOT S TAB PO ×2 (08:09→21:19)
[2017-10-03] MEDS: BISACODYL 5 MG TAB PO (08:09)
[2017-10-03] MEDS: FERROUS SULFATE 325MG TAB PO ×3 (08:09→21:19)
[2017-10-03] MEDS: CitaloPRAM (CeleXA) 10 MG TABLET PO (08:09)
[2017-10-03] MEDS: AZITHROMYCIN 250 MG TAB PO (08:10)
[2017-10-03] MEDS: DOCUSATE SODIUM 100 MG CAP PO ×2 (08:10→21:18)
[2017-10-03] MEDS: DULoxetine 30 MG CAP (CYMBALTA) PO (08:10)
[2017-10-03] MEDS: TORSEMIDE (DEMADEX) 50 MG PER 1/2 TAB PO ×2 (08:10→16:52)
[2017-10-03] MEDS: DIGOXIN 0.125 MG TAB PO (08:11)
[2017-10-03] MEDS: CARVedilol 3.125 MG TAB PO ×2 (08:11→21:19)
[2017-10-03] MEDS: CAPSAICIN 0.025% CR 60 GM TOP ×4 (09:54→21:18)
[2017-10-03] MEDS: MIRALAX *UNIT DOSE* 17GM PACKET PO (09:54)
[2017-10-03] MEDS: MAGNESIUM OXIDE 400 MG TAB (MAG-OX) PO ×2 (09:54→21:17)
[2017-10-03] MEDS: MAG SULF 1GM/100ML (MAG RUN) 1 GM in APPROPRIATE DILUENT 1 EA IV (09:55)
[2017-10-03] MEDS: OMEPRAZOLE 20 MG CAP PO (21:17)
[2017-10-03] MEDS: ASPIRIN 81 MG ENTERIC TAB PO (21:18)
[2017-10-03] MEDS: TAMSULOSIN 0.4 MG CAP PO (21:18)
[2017-10-03] MEDS: CLOPIDOGREL 75 MG TAB PO (21:19)
[2017-10-03] MEDS: FINASTERIDE 5 MG TAB PO (21:19)
[2017-10-04] MEDS: ANEXSIA, NORCO 7.5MG/325MG TABLET(HYDROCODONE/APAP) PO ×4 (03:45→23:44)
[2017-10-04 04:14] LABS: BASO % 0.3 % (0.0-1.0); EOS # 0.2 10^3/uL (0.0-0.50); EOS % 1.5 % (0.0-3.0); HEMATOCRIT 31.2 % (42.0-52.0); HEMOGLOBIN 10.1 g/dl (14.0-18.0); IMMATURE GRANULOCYTE # 0.3 10^3/uL (0-0); IMMATURE GRANULOCYTE % 3.1 % (0-0); LYMPH # 1.6 10^3/uL (1.5-4.5); LYMPH % 16.9 % (24.0-44.0); MEAN CORPUSCULAR HEMOGLOBIN 28.9 pg (27.0-33.0); MEAN CORPUSCULAR HGB CONC 32.4 g/dl (32.0-36.5); MEAN CORPUSCULAR VOLUME 89.4 fl (80.0-96.0); MONO # 0.7 10^3/uL (0.0-0.8); MONO % 6.7 % (0.0-5.0); NEUTROPHILS # 6.9 10^3/uL (1.8-7.7); NEUTROPHILS % 71.5 % (36.0-66.0); PLATELET COUNT, AUTOMATED 206 10^3/uL (150-450); RED BLOOD COUNT 3.49 10^6/uL (4.30-6.10); RED CELL DISTRIBUTION WIDTH 14.4 % (11.5-14.5); WHITE BLOOD COUNT 9.7 10^3/uL (4.0-10.0)
[2017-10-04 04:29] LABS: ALBUMIN 2.5 GM/DL (3.2-5.2); ALKALINE PHOSPHATASE 396 U/L (45-117); ALT/SGPT 126 U/L (12-78); ANION GAP 3 MEQ/L (8-16); AST/SGOT 161 U/L (7-37); BILIRUBIN,TOTAL 1.3 MG/DL (0.2-1.0); BLOOD UREA NITROGEN 32 MG/DL (7-18); CALCIUM LEVEL 8.4 MG/DL (8.8-10.2); CARBON DIOXIDE LEVEL 38 MEQ/L (21-32); CHLORIDE LEVEL 91 MEQ/L (98-107); CREATININE FOR GFR 1.38 MG/DL (0.70-1.30); GLOMERULAR FILTRATION RATE 53.6 (>42); GLUCOSE, FASTING 197 MG/DL (70-100); MAGNESIUM LEVEL 1.8 MG/DL (1.8-2.4); SODIUM LEVEL 132 MEQ/L (136-145); TOTAL PROTEIN 6.7 GM/DL (6.4-8.2)
[2017-10-04] MEDS: LEVOTHYROXINE 25MCG TABLET (0.025MG) PO (06:19)
[2017-10-04] MEDS: HEPARIN SOD (PORCINE) 5000 UNITS/ML VIAL SC ×3 (06:19→21:20)
[2017-10-04] MEDS: FERROUS SULFATE 325MG TAB PO ×3 (09:15→21:19)
[2017-10-04] MEDS: CitaloPRAM (CeleXA) 10 MG TABLET PO (09:15)
[2017-10-04] MEDS: MIRALAX *UNIT DOSE* 17GM PACKET PO (09:15)
[2017-10-04] MEDS: DOCUSATE SODIUM 100 MG CAP PO ×2 (09:16→21:19)
[2017-10-04] MEDS: CARVedilol 3.125 MG TAB PO ×2 (09:16→21:19)
[2017-10-04] MEDS: MAGNESIUM OXIDE 400 MG TAB (MAG-OX) PO ×2 (09:16→21:18)
[2017-10-04] MEDS: AZITHROMYCIN 250 MG TAB PO (09:16)
[2017-10-04] MEDS: CAPSAICIN 0.025% CR 60 GM TOP ×4 (09:17→21:20)
[2017-10-04] MEDS: DULoxetine 30 MG CAP (CYMBALTA) PO (09:17)
[2017-10-04] MEDS: TORSEMIDE 20 MG TAB PO ×2 (09:17→18:00)
[2017-10-04] MEDS: SENOKOT S TAB PO ×2 (09:17→21:19)
[2017-10-04] MEDS: BISACODYL 5 MG TAB PO (18:03)
[2017-10-04] MEDS: TAMSULOSIN 0.4 MG CAP PO (21:18)
[2017-10-04] MEDS: OMEPRAZOLE 20 MG CAP PO (21:18)
[2017-10-04] MEDS: CLOPIDOGREL 75 MG TAB PO (21:19)
[2017-10-04] MEDS: FINASTERIDE 5 MG TAB PO (21:19)
[2017-10-04] MEDS: ASPIRIN 81 MG ENTERIC TAB PO (21:19)
[2017-10-05] MEDS: ANEXSIA, NORCO 7.5MG/325MG TABLET(HYDROCODONE/APAP) PO ×3 (05:32→21:02)
[2017-10-05] MEDS: LEVOTHYROXINE 25MCG TABLET (0.025MG) PO (05:32)
[2017-10-05] MEDS: HEPARIN SOD (PORCINE) 5000 UNITS/ML VIAL SC ×3 (05:32→21:00)
[2017-10-05 06:20] LABS: HEMATOCRIT 31.5 % (42.0-52.0); HEMOGLOBIN 10.3 g/dl (14.0-18.0); MEAN CORPUSCULAR HEMOGLOBIN 29.3 pg (27.0-33.0); MEAN CORPUSCULAR HGB CONC 32.7 g/dl (32.0-36.5); MEAN CORPUSCULAR VOLUME 89.5 fl (80.0-96.0); PLATELET COUNT, AUTOMATED 240 10^3/uL (150-450); RED BLOOD COUNT 3.52 10^6/uL (4.30-6.10); WHITE BLOOD COUNT 11.6 10^3/uL (4.0-10.0)
[2017-10-05 06:41] LABS: ALBUMIN 2.7 GM/DL (3.2-5.2); ALBUMIN/GLOBULIN RATIO 0.64 (1.00-1.93); ALKALINE PHOSPHATASE 374 U/L (45-117); ALT/SGPT 94 U/L (12-78); ANION GAP 3 MEQ/L (8-16); AST/SGOT 75 U/L (7-37); BILIRUBIN,TOTAL 0.7 MG/DL (0.2-1.0); BLOOD UREA NITROGEN 39 MG/DL (7-18); CALCIUM LEVEL 8.6 MG/DL (8.8-10.2); CARBON DIOXIDE LEVEL 36 MEQ/L (21-32); CHLORIDE LEVEL 95 MEQ/L (98-107); CREATININE FOR GFR 1.58 MG/DL (0.70-1.30); GLOMERULAR FILTRATION RATE 45.9 (>42); GLUCOSE, FASTING 121 MG/DL (70-100); POTASSIUM SERUM 4.6 MEQ/L (3.5-5.1); SODIUM LEVEL 134 MEQ/L (136-145); TOTAL PROTEIN 6.9 GM/DL (6.4-8.2)
[2017-10-05] MEDS: DULoxetine 30 MG CAP (CYMBALTA) PO (08:04)
[2017-10-05] MEDS: FERROUS SULFATE 325MG TAB PO ×3 (08:04→20:58)
[2017-10-05] MEDS: DOCUSATE SODIUM 100 MG CAP PO ×2 (08:04→20:59)
[2017-10-05] MEDS: SENOKOT S TAB PO ×2 (08:04→20:59)
[2017-10-05] MEDS: MIRALAX *UNIT DOSE* 17GM PACKET PO (08:04)
[2017-10-05] MEDS: TORSEMIDE 20 MG TAB PO ×2 (08:04→16:16)
[2017-10-05] MEDS: AZITHROMYCIN 250 MG TAB PO (08:04)
[2017-10-05] MEDS: MAGNESIUM OXIDE 400 MG TAB (MAG-OX) PO ×2 (08:05→20:59)
[2017-10-05] MEDS: CARVedilol 3.125 MG TAB PO ×2 (08:05→21:00)
[2017-10-05] MEDS: CitaloPRAM (CeleXA) 10 MG TABLET PO (08:05)
[2017-10-05] MEDS: CAPSAICIN 0.025% CR 60 GM TOP ×4 (08:06→21:01)
[2017-10-05] MEDS: LIDOCAINE 5% (LIDODERM) PATCH TD (16:16)
[2017-10-05] MEDS: CLOPIDOGREL 75 MG TAB PO (20:58)
[2017-10-05] MEDS: ASPIRIN 81 MG ENTERIC TAB PO (20:59)
[2017-10-05] MEDS: FINASTERIDE 5 MG TAB PO (20:59)
[2017-10-05] MEDS: OMEPRAZOLE 20 MG CAP PO (20:59)
[2017-10-05] MEDS: TAMSULOSIN 0.4 MG CAP PO (20:59)
[2017-10-05] MEDS: **NOTE PATIENT COMMENT** MISC XX ×2 (21:00)
[2017-10-06] MEDS: LEVOTHYROXINE 25MCG TABLET (0.025MG) PO (05:43)
[2017-10-06] MEDS: ANEXSIA, NORCO 7.5MG/325MG TABLET(HYDROCODONE/APAP) PO ×2 (05:43→21:26)
[2017-10-06] MEDS: HEPARIN SOD (PORCINE) 5000 UNITS/ML VIAL SC ×3 (05:43→21:25)
[2017-10-06 08:20] LABS: HEMATOCRIT 34.4 % (42.0-52.0); HEMOGLOBIN 11.1 g/dl (14.0-18.0); MEAN CORPUSCULAR HEMOGLOBIN 29.4 pg (27.0-33.0); MEAN CORPUSCULAR HGB CONC 32.3 g/dl (32.0-36.5); MEAN CORPUSCULAR VOLUME 91.2 fl (80.0-96.0); PLATELET COUNT, AUTOMATED 239 10^3/uL (150-450); RED BLOOD COUNT 3.77 10^6/uL (4.30-6.10); RED CELL DISTRIBUTION WIDTH 15.6 % (11.5-14.5); WHITE BLOOD COUNT 12.5 10^3/uL (4.0-10.0)
[2017-10-06 08:44] LABS: ALBUMIN 2.9 GM/DL (3.2-5.2); ALKALINE PHOSPHATASE 393 U/L (45-117); ALT/SGPT 81 U/L (12-78); ANION GAP 6 MEQ/L (8-16); AST/SGOT 45 U/L (7-37); BILIRUBIN,TOTAL 0.8 MG/DL (0.2-1.0); BLOOD UREA NITROGEN 44 MG/DL (7-18); CARBON DIOXIDE LEVEL 33 MEQ/L (21-32); CHLORIDE LEVEL 94 MEQ/L (98-107); CREATININE FOR GFR 1.44 MG/DL (0.70-1.30); GLOMERULAR FILTRATION RATE 51.1 (>42); GLUCOSE, FASTING 158 MG/DL (70-100); MAGNESIUM LEVEL 2.1 MG/DL (1.8-2.4); POTASSIUM SERUM 4.2 MEQ/L (3.5-5.1); SODIUM LEVEL 133 MEQ/L (136-145); TOTAL PROTEIN 7.7 GM/DL (6.4-8.2)
[2017-10-06] MEDS: AZITHROMYCIN 250 MG TAB PO (08:54)
[2017-10-06] MEDS: CitaloPRAM (CeleXA) 10 MG TABLET PO (08:54)
[2017-10-06] MEDS: DIGOXIN 0.125 MG TAB PO (08:55)
[2017-10-06] MEDS: CARVedilol 3.125 MG TAB PO ×2 (08:56→21:00)
[2017-10-06] MEDS: MIRALAX *UNIT DOSE* 17GM PACKET PO (08:58)
[2017-10-06] MEDS: MAGNESIUM OXIDE 400 MG TAB (MAG-OX) PO ×2 (08:58→21:23)
[2017-10-06] MEDS: DULoxetine 30 MG CAP (CYMBALTA) PO (08:58)
[2017-10-06] MEDS: LIDOCAINE 5% (LIDODERM) PATCH TD (08:59)
[2017-10-06] MEDS: FERROUS SULFATE 325MG TAB PO ×3 (09:00→21:24)
[2017-10-06] MEDS: DOCUSATE SODIUM 100 MG CAP PO ×2 (09:00→21:24)
[2017-10-06] MEDS: SENOKOT S TAB PO ×2 (09:00→21:23)
[2017-10-06] MEDS: CAPSAICIN 0.025% CR 60 GM TOP ×4 (09:00→21:24)
[2017-10-06] MEDS: TORSEMIDE 20 MG TAB PO ×2 (09:00→17:00)
[2017-10-06] MEDS: **NOTE PATIENT COMMENT** MISC XX (21:00)
[2017-10-06] MEDS: TAMSULOSIN 0.4 MG CAP PO (21:23)
[2017-10-06] MEDS: CLOPIDOGREL 75 MG TAB PO (21:23)
[2017-10-06] MEDS: OMEPRAZOLE 20 MG CAP PO (21:23)
[2017-10-06] MEDS: FINASTERIDE 5 MG TAB PO (21:24)
[2017-10-06] MEDS: ASPIRIN 81 MG ENTERIC TAB PO (21:24)
[2017-10-07] MEDS: ACETAMINOPHEN TAB 650MG DOSE (2X325MG) PO (01:33)
[2017-10-07] MEDS: HEPARIN SOD (PORCINE) 5000 UNITS/ML VIAL SC ×3 (05:36→22:42)
[2017-10-07] MEDS: LEVOTHYROXINE 25MCG TABLET (0.025MG) PO (05:36)
[2017-10-07 06:18] LABS: HEMATOCRIT 31.8 % (42.0-52.0); MEAN CORPUSCULAR HEMOGLOBIN 28.9 pg (27.0-33.0); MEAN CORPUSCULAR HGB CONC 31.4 g/dl (32.0-36.5); MEAN CORPUSCULAR VOLUME 91.9 fl (80.0-96.0); PLATELET COUNT, AUTOMATED 251 10^3/uL (150-450); RED BLOOD COUNT 3.46 10^6/uL (4.30-6.10); RED CELL DISTRIBUTION WIDTH 15.9 % (11.5-14.5)
[2017-10-07 06:44] LABS: ALBUMIN 2.8 GM/DL (3.2-5.2); ALBUMIN/GLOBULIN RATIO 0.62 (1.00-1.93); ALKALINE PHOSPHATASE 372 U/L (45-117); ALT/SGPT 61 U/L (12-78); ANION GAP 6 MEQ/L (8-16); AST/SGOT 37 U/L (7-37); BILIRUBIN,TOTAL 0.8 MG/DL (0.2-1.0); BLOOD UREA NITROGEN 44 MG/DL (7-18); CARBON DIOXIDE LEVEL 33 MEQ/L (21-32); CHLORIDE LEVEL 97 MEQ/L (98-107); CREATININE FOR GFR 1.56 MG/DL (0.70-1.30); GLOMERULAR FILTRATION RATE 46.5 (>42); GLUCOSE, FASTING 118 MG/DL (70-100); MAGNESIUM LEVEL 2.2 MG/DL (1.8-2.4); POTASSIUM SERUM 4.4 MEQ/L (3.5-5.1); SODIUM LEVEL 136 MEQ/L (136-145); TOTAL PROTEIN 7.3 GM/DL (6.4-8.2)
[2017-10-07] MEDS: LIDOCAINE 5% (LIDODERM) PATCH TD (08:29)
[2017-10-07] MEDS: ANEXSIA, NORCO 7.5MG/325MG TABLET(HYDROCODONE/APAP) PO ×3 (08:30→20:30)
[2017-10-07] MEDS: MAGNESIUM OXIDE 400 MG TAB (MAG-OX) PO ×2 (08:30→20:21)
[2017-10-07] MEDS: TORSEMIDE 20 MG TAB PO ×2 (08:31→16:42)
[2017-10-07] MEDS: DOCUSATE SODIUM 100 MG CAP PO ×2 (08:31→20:21)
[2017-10-07] MEDS: MIRALAX *UNIT DOSE* 17GM PACKET PO (08:31)
[2017-10-07] MEDS: DULoxetine 30 MG CAP (CYMBALTA) PO (08:31)
[2017-10-07] MEDS: CitaloPRAM (CeleXA) 10 MG TABLET PO (08:31)
[2017-10-07] MEDS: FERROUS SULFATE 325MG TAB PO ×3 (08:31→20:22)
[2017-10-07] MEDS: SENOKOT S TAB PO ×2 (08:31→20:23)
[2017-10-07] MEDS: VITAMIN D 1,000 INTERNATIONAL UNITS TABLET PO (08:32)
[2017-10-07] MEDS: CARVedilol 3.125 MG TAB PO ×2 (08:38→20:22)
[2017-10-07] MEDS: LOSARTAN 25 MG TAB PO (08:42)
[2017-10-07] MEDS: CAPSAICIN 0.025% CR 60 GM TOP ×4 (08:48→20:23)
[2017-10-07] MEDS: TAMSULOSIN 0.4 MG CAP PO (20:20)
[2017-10-07] MEDS: CLOPIDOGREL 75 MG TAB PO (20:21)
[2017-10-07] MEDS: ASPIRIN 81 MG ENTERIC TAB PO (20:21)
[2017-10-07] MEDS: OMEPRAZOLE 20 MG CAP PO (20:21)
[2017-10-07] MEDS: FINASTERIDE 5 MG TAB PO (20:22)
[2017-10-07] MEDS: **NOTE PATIENT COMMENT** MISC XX (20:24)
[2017-10-08] MEDS: LEVOTHYROXINE 25MCG TABLET (0.025MG) PO (06:11)
[2017-10-08] MEDS: HEPARIN SOD (PORCINE) 5000 UNITS/ML VIAL SC ×3 (06:11→22:53)
[2017-10-08 06:48] LABS: HEMATOCRIT 32.7 % (42.0-52.0); HEMOGLOBIN 10.3 g/dl (14.0-18.0); MEAN CORPUSCULAR HEMOGLOBIN 28.9 pg (27.0-33.0); MEAN CORPUSCULAR HGB CONC 31.5 g/dl (32.0-36.5); MEAN CORPUSCULAR VOLUME 91.9 fl (80.0-96.0); PLATELET COUNT, AUTOMATED 263 10^3/uL (150-450); RED BLOOD COUNT 3.56 10^6/uL (4.30-6.10); RED CELL DISTRIBUTION WIDTH 16.4 % (11.5-14.5); WHITE BLOOD COUNT 12.3 10^3/uL (4.0-10.0)
[2017-10-08 07:07] LABS: ALBUMIN 2.8 GM/DL (3.2-5.2); ALBUMIN/GLOBULIN RATIO 0.64 (1.00-1.93); ALKALINE PHOSPHATASE 336 U/L (45-117); ALT/SGPT 50 U/L (12-78); ANION GAP 8 MEQ/L (8-16); AST/SGOT 26 U/L (7-37); BILIRUBIN,TOTAL 0.8 MG/DL (0.2-1.0); BLOOD UREA NITROGEN 46 MG/DL (7-18); CALCIUM LEVEL 8.9 MG/DL (8.8-10.2); CARBON DIOXIDE LEVEL 31 MEQ/L (21-32); CHLORIDE LEVEL 97 MEQ/L (98-107); CREATININE FOR GFR 1.44 MG/DL (0.70-1.30); GLOMERULAR FILTRATION RATE 51.1 (>42); GLUCOSE, FASTING 136 MG/DL (70-100); MAGNESIUM LEVEL 2.3 MG/DL (1.8-2.4); POTASSIUM SERUM 4.6 MEQ/L (3.5-5.1); SODIUM LEVEL 136 MEQ/L (136-145); TOTAL PROTEIN 7.2 GM/DL (6.4-8.2)
[2017-10-08 07:55] LABS: C REACTIVE PROTEIN QUANTITATIV 0.49 MG/DL (0.00-0.30)
[2017-10-08] MEDS: MIRALAX *UNIT DOSE* 17GM PACKET PO (08:21)
[2017-10-08] MEDS: TORSEMIDE 20 MG TAB PO ×2 (08:21→16:06)
[2017-10-08] MEDS: SENOKOT S TAB PO ×2 (08:21→20:24)
[2017-10-08] MEDS: CitaloPRAM (CeleXA) 10 MG TABLET PO (08:22)
[2017-10-08] MEDS: MAGNESIUM OXIDE 400 MG TAB (MAG-OX) PO ×2 (08:22→20:23)
[2017-10-08] MEDS: VITAMIN D 1,000 INTERNATIONAL UNITS TABLET PO (08:22)
[2017-10-08] MEDS: ANEXSIA, NORCO 7.5MG/325MG TABLET(HYDROCODONE/APAP) PO ×2 (08:22→18:27)
[2017-10-08] MEDS: LIDOCAINE 5% (LIDODERM) PATCH TD (08:22)
[2017-10-08] MEDS: FERROUS SULFATE 325MG TAB PO ×3 (08:22→20:23)
[2017-10-08] MEDS: DOCUSATE SODIUM 100 MG CAP PO ×2 (08:22→20:23)
[2017-10-08] MEDS: LOSARTAN 25 MG TAB PO (08:23)
[2017-10-08] MEDS: CAPSAICIN 0.025% CR 60 GM TOP ×4 (08:23→20:24)
[2017-10-08] MEDS: CARVedilol 3.125 MG TAB PO ×2 (08:23→20:25)
[2017-10-08] MEDS: DULoxetine 30 MG CAP (CYMBALTA) PO (08:23)
[2017-10-08] MEDS: CLOPIDOGREL 75 MG TAB PO (20:23)
[2017-10-08] MEDS: TAMSULOSIN 0.4 MG CAP PO (20:23)
[2017-10-08] MEDS: OMEPRAZOLE 20 MG CAP PO (20:23)
[2017-10-08] MEDS: ASPIRIN 81 MG ENTERIC TAB PO (20:23)
[2017-10-08] MEDS: FINASTERIDE 5 MG TAB PO (20:23)
[2017-10-08] MEDS: **NOTE PATIENT COMMENT** MISC XX (20:25)
[2017-10-09] MEDS: ANEXSIA, NORCO 7.5MG/325MG TABLET(HYDROCODONE/APAP) PO ×3 (00:40→17:21)
[2017-10-09 06:27] LABS: HEMOGLOBIN 9.9 g/dl (14.0-18.0); MEAN CORPUSCULAR HEMOGLOBIN 29.2 pg (27.0-33.0); MEAN CORPUSCULAR HGB CONC 31.9 g/dl (32.0-36.5); MEAN CORPUSCULAR VOLUME 91.4 fl (80.0-96.0); PLATELET COUNT, AUTOMATED 251 10^3/uL (150-450); RED BLOOD COUNT 3.39 10^6/uL (4.30-6.10); RED CELL DISTRIBUTION WIDTH 16.9 % (11.5-14.5); WHITE BLOOD COUNT 10.7 10^3/uL (4.0-10.0)
[2017-10-09] MEDS: LEVOTHYROXINE 25MCG TABLET (0.025MG) PO (06:34)
[2017-10-09] MEDS: HEPARIN SOD (PORCINE) 5000 UNITS/ML VIAL SC ×3 (06:35→22:00)
[2017-10-09 06:50] LABS: ALBUMIN 2.8 GM/DL (3.2-5.2); ALBUMIN/GLOBULIN RATIO 0.68 (1.00-1.93); ALKALINE PHOSPHATASE 317 U/L (45-117); ALT/SGPT 41 U/L (12-78); ANION GAP 8 MEQ/L (8-16); AST/SGOT 24 U/L (7-37); BILIRUBIN,TOTAL 0.8 MG/DL (0.2-1.0); BLOOD UREA NITROGEN 51 MG/DL (7-18); CALCIUM LEVEL 8.9 MG/DL (8.8-10.2); CARBON DIOXIDE LEVEL 30 MEQ/L (21-32); CHLORIDE LEVEL 96 MEQ/L (98-107); CREATININE FOR GFR 1.56 MG/DL (0.70-1.30); GLOMERULAR FILTRATION RATE 46.5 (>42); GLUCOSE, FASTING 156 MG/DL (70-100); POTASSIUM SERUM 4.3 MEQ/L (3.5-5.1); SODIUM LEVEL 134 MEQ/L (136-145); TOTAL PROTEIN 6.9 GM/DL (6.4-8.2)
[2017-10-09] MEDS: MIRALAX *UNIT DOSE* 17GM PACKET PO (09:23)
[2017-10-09] MEDS: TORSEMIDE 20 MG TAB PO ×2 (09:23→16:53)
[2017-10-09] MEDS: LIDOCAINE 5% (LIDODERM) PATCH TD (09:23)
[2017-10-09] MEDS: CitaloPRAM (CeleXA) 10 MG TABLET PO (09:24)
[2017-10-09] MEDS: MAGNESIUM OXIDE 400 MG TAB (MAG-OX) PO ×2 (09:24→21:43)
[2017-10-09] MEDS: DULoxetine 30 MG CAP (CYMBALTA) PO (09:24)
[2017-10-09] MEDS: VITAMIN D 1,000 INTERNATIONAL UNITS TABLET PO (09:24)
[2017-10-09] MEDS: DOCUSATE SODIUM 100 MG CAP PO ×2 (09:24→21:42)
[2017-10-09] MEDS: FERROUS SULFATE 325MG TAB PO ×3 (09:24→21:44)
[2017-10-09] MEDS: SENOKOT S TAB PO ×2 (09:25→21:43)
[2017-10-09] MEDS: DIGOXIN 0.125 MG TAB PO (09:28)
[2017-10-09] MEDS: CARVedilol 3.125 MG TAB PO (09:29)
[2017-10-09] MEDS: CAPSAICIN 0.025% CR 60 GM TOP ×4 (09:29→21:44)
[2017-10-09] MEDS: LOSARTAN 25 MG TAB PO (09:29)
[2017-10-09] MEDS: **NOTE PATIENT COMMENT** MISC XX (21:00)
[2017-10-09] MEDS: OMEPRAZOLE 20 MG CAP PO (21:43)
[2017-10-09] MEDS: CLOPIDOGREL 75 MG TAB PO (21:43)
[2017-10-09] MEDS: FINASTERIDE 5 MG TAB PO (21:43)
[2017-10-09] MEDS: TAMSULOSIN 0.4 MG CAP PO (21:43)
[2017-10-09] MEDS: CARVedilol 6.25 MG TAB PO (21:43)
[2017-10-09] MEDS: ASPIRIN 81 MG ENTERIC TAB PO (21:44)
[2017-10-10 01:12] LABS: ANION GAP 7 MEQ/L (8-16); BLOOD UREA NITROGEN 52 MG/DL (7-18); CARBON DIOXIDE LEVEL 33 MEQ/L (21-32); CHLORIDE LEVEL 94 MEQ/L (98-107); CREATININE FOR GFR 1.49 MG/DL (0.70-1.30); GLOMERULAR FILTRATION RATE 49.1 (>42); GLUCOSE, FASTING 133 MG/DL (70-100); MAGNESIUM LEVEL 2.1 MG/DL (1.8-2.4); POTASSIUM SERUM 4.1 MEQ/L (3.5-5.1); SODIUM LEVEL 134 MEQ/L (136-145)
[2017-10-10] MEDS: ANEXSIA, NORCO 7.5MG/325MG TABLET(HYDROCODONE/APAP) PO ×3 (04:26→17:52)
[2017-10-10] MEDS: HEPARIN SOD (PORCINE) 5000 UNITS/ML VIAL SC ×3 (05:22→21:41)
[2017-10-10 05:23] LABS: HEMATOCRIT 28.9 % (42.0-52.0); HEMOGLOBIN 9.4 g/dl (14.0-18.0); MEAN CORPUSCULAR HEMOGLOBIN 29.7 pg (27.0-33.0); MEAN CORPUSCULAR HGB CONC 32.5 g/dl (32.0-36.5); MEAN CORPUSCULAR VOLUME 91.5 fl (80.0-96.0); PLATELET COUNT, AUTOMATED 269 10^3/uL (150-450); RED BLOOD COUNT 3.16 10^6/uL (4.30-6.10); RED CELL DISTRIBUTION WIDTH 16.9 % (11.5-14.5); WHITE BLOOD COUNT 10.2 10^3/uL (4.0-10.0)
[2017-10-10] MEDS: LEVOTHYROXINE 25MCG TABLET (0.025MG) PO (05:43)
[2017-10-10 05:47] LABS: ALBUMIN 2.8 GM/DL (3.2-5.2); ALKALINE PHOSPHATASE 295 U/L (45-117); ALT/SGPT 35 U/L (12-78); ANION GAP 8 MEQ/L (8-16); AST/SGOT 22 U/L (7-37); BILIRUBIN,TOTAL 0.9 MG/DL (0.2-1.0); BLOOD UREA NITROGEN 54 MG/DL (7-18); CALCIUM LEVEL 8.7 MG/DL (8.8-10.2); CARBON DIOXIDE LEVEL 32 MEQ/L (21-32); CHLORIDE LEVEL 95 MEQ/L (98-107); CREATININE FOR GFR 1.45 MG/DL (0.70-1.30); GLOMERULAR FILTRATION RATE 50.6 (>42); GLUCOSE, FASTING 139 MG/DL (70-100); MAGNESIUM LEVEL 2.1 MG/DL (1.8-2.4); SODIUM LEVEL 135 MEQ/L (136-145); TOTAL PROTEIN 6.8 GM/DL (6.4-8.2)
[2017-10-10] MEDS: MIRALAX *UNIT DOSE* 17GM PACKET PO (09:20)
[2017-10-10] MEDS: LIDOCAINE 5% (LIDODERM) PATCH TD (09:21)
[2017-10-10] MEDS: MAGNESIUM OXIDE 400 MG TAB (MAG-OX) PO ×2 (09:22→21:40)
[2017-10-10] MEDS: DULoxetine 30 MG CAP (CYMBALTA) PO (09:22)
[2017-10-10] MEDS: VITAMIN D 1,000 INTERNATIONAL UNITS TABLET PO (09:22)
[2017-10-10] MEDS: CitaloPRAM (CeleXA) 10 MG TABLET PO (09:23)
[2017-10-10] MEDS: FERROUS SULFATE 325MG TAB PO (09:23)
[2017-10-10] MEDS: TORSEMIDE 20 MG TAB PO ×2 (09:23→17:51)
[2017-10-10] MEDS: DOCUSATE SODIUM 100 MG CAP PO ×2 (09:24→21:40)
[2017-10-10] MEDS: SENOKOT S TAB PO ×2 (09:24→21:40)
[2017-10-10] MEDS: CARVedilol 6.25 MG TAB PO (09:26)
[2017-10-10] MEDS: LOSARTAN 25 MG TAB PO (09:27)
[2017-10-10] MEDS: CAPSAICIN 0.025% CR 60 GM TOP ×4 (09:28→21:41)
[2017-10-10] MEDS: GABAPENTIN 100 MG CAP PO (12:27)
[2017-10-10] MEDS: **NOTE PATIENT COMMENT** MISC XX (21:00)
[2017-10-10] MEDS: CARVedilol 12.5 MG TAB PO (21:39)
[2017-10-10] MEDS: OMEPRAZOLE 20 MG CAP PO (21:40)
[2017-10-10] MEDS: TAMSULOSIN 0.4 MG CAP PO (21:40)
[2017-10-10] MEDS: CLOPIDOGREL 75 MG TAB PO (21:40)
[2017-10-10] MEDS: ASPIRIN 81 MG ENTERIC TAB PO (21:40)
[2017-10-10] MEDS: FINASTERIDE 5 MG TAB PO (21:40)
[2017-10-11] MEDS: LEVOTHYROXINE 25MCG TABLET (0.025MG) PO (05:38)
[2017-10-11] MEDS: HEPARIN SOD (PORCINE) 5000 UNITS/ML VIAL SC ×3 (05:38→21:39)
[2017-10-11 05:41] LABS: HEMATOCRIT 29.9 % (42.0-52.0); HEMOGLOBIN 9.5 g/dl (14.0-18.0); MEAN CORPUSCULAR HEMOGLOBIN 29.4 pg (27.0-33.0); MEAN CORPUSCULAR HGB CONC 31.8 g/dl (32.0-36.5); MEAN CORPUSCULAR VOLUME 92.6 fl (80.0-96.0); PLATELET COUNT, AUTOMATED 266 10^3/uL (150-450); RED BLOOD COUNT 3.23 10^6/uL (4.30-6.10); RED CELL DISTRIBUTION WIDTH 17.1 % (11.5-14.5); WHITE BLOOD COUNT 8.4 10^3/uL (4.0-10.0)
[2017-10-11] MEDS: ANEXSIA, NORCO 7.5MG/325MG TABLET(HYDROCODONE/APAP) PO ×3 (05:41→21:40)
[2017-10-11 06:10] LABS: ALBUMIN 2.8 GM/DL (3.2-5.2); ALBUMIN/GLOBULIN RATIO 0.67 (1.00-1.93); ALKALINE PHOSPHATASE 289 U/L (45-117); ALT/SGPT 32 U/L (12-78); ANION GAP 7 MEQ/L (8-16); AST/SGOT 21 U/L (7-37); BILIRUBIN,TOTAL 0.7 MG/DL (0.2-1.0); BLOOD UREA NITROGEN 59 MG/DL (7-18); CALCIUM LEVEL 8.9 MG/DL (8.8-10.2); CARBON DIOXIDE LEVEL 34 MEQ/L (21-32); CHLORIDE LEVEL 96 MEQ/L (98-107); CREATININE FOR GFR 1.52 MG/DL (0.70-1.30); GLUCOSE, FASTING 146 MG/DL (70-100); MAGNESIUM LEVEL 2.1 MG/DL (1.8-2.4); POTASSIUM SERUM 4.2 MEQ/L (3.5-5.1); SODIUM LEVEL 137 MEQ/L (136-145)
[2017-10-11] MEDS: LIDOCAINE 5% (LIDODERM) PATCH TD (09:08)
[2017-10-11] MEDS: MIRALAX *UNIT DOSE* 17GM PACKET PO (09:08)
[2017-10-11] MEDS: DOCUSATE SODIUM 100 MG CAP PO ×2 (09:09→21:39)
[2017-10-11] MEDS: MAGNESIUM OXIDE 400 MG TAB (MAG-OX) PO ×2 (09:09→21:38)
[2017-10-11] MEDS: FERROUS SULFATE 325MG TAB PO (09:09)
[2017-10-11] MEDS: SENOKOT S TAB PO ×2 (09:09→21:39)
[2017-10-11] MEDS: TORSEMIDE 20 MG TAB PO ×2 (09:09→18:16)
[2017-10-11] MEDS: CARVedilol 12.5 MG TAB PO ×2 (09:09→21:00)
[2017-10-11] MEDS: GABAPENTIN 100 MG CAP PO (09:10)
[2017-10-11] MEDS: VITAMIN D 1,000 INTERNATIONAL UNITS TABLET PO (09:10)
[2017-10-11] MEDS: DULoxetine 30 MG CAP (CYMBALTA) PO (09:10)
[2017-10-11] MEDS: LOSARTAN 25 MG TAB PO (09:10)
[2017-10-11] MEDS: CitaloPRAM (CeleXA) 10 MG TABLET PO (09:10)
[2017-10-11] MEDS: CAPSAICIN 0.025% CR 60 GM TOP ×4 (09:11→21:39)
[2017-10-11] MEDS: **NOTE PATIENT COMMENT** MISC XX (21:00)
[2017-10-11] MEDS: TAMSULOSIN 0.4 MG CAP PO (21:38)
[2017-10-11] MEDS: FINASTERIDE 5 MG TAB PO (21:38)
[2017-10-11] MEDS: ASPIRIN 81 MG ENTERIC TAB PO (21:38)
[2017-10-11] MEDS: OMEPRAZOLE 20 MG CAP PO (21:39)
[2017-10-11] MEDS: CLOPIDOGREL 75 MG TAB PO (21:39)
[2017-10-12] MEDS: LEVOTHYROXINE 25MCG TABLET (0.025MG) PO (05:40)
[2017-10-12] MEDS: HEPARIN SOD (PORCINE) 5000 UNITS/ML VIAL SC ×3 (05:41→22:10)
[2017-10-12] MEDS: LOSARTAN 25 MG TAB PO (09:00)
[2017-10-12] MEDS: CARVedilol 12.5 MG TAB PO (09:00)
[2017-10-12] MEDS: MIRALAX *UNIT DOSE* 17GM PACKET PO (09:51)
[2017-10-12] MEDS: TORSEMIDE 20 MG TAB PO ×2 (09:51→17:30)
[2017-10-12] MEDS: VITAMIN D 1,000 INTERNATIONAL UNITS TABLET PO (09:51)
[2017-10-12] MEDS: CitaloPRAM (CeleXA) 10 MG TABLET PO (09:52)
[2017-10-12] MEDS: FERROUS SULFATE 325MG TAB PO (09:52)
[2017-10-12] MEDS: DOCUSATE SODIUM 100 MG CAP PO ×2 (09:52→22:09)
[2017-10-12] MEDS: GABAPENTIN 100 MG CAP PO ×2 (09:52→09:53)
[2017-10-12] MEDS: DULoxetine 30 MG CAP (CYMBALTA) PO (09:52)
[2017-10-12] MEDS: MAGNESIUM OXIDE 400 MG TAB (MAG-OX) PO ×2 (09:52→22:09)
[2017-10-12] MEDS: DIGOXIN 0.125 MG TAB PO (09:55)
[2017-10-12] MEDS: SENOKOT S TAB PO ×2 (09:56→22:09)
[2017-10-12] MEDS: CAPSAICIN 0.025% CR 60 GM TOP ×4 (09:57→22:10)
[2017-10-12] MEDS: LIDOCAINE 5% (LIDODERM) PATCH TD (09:57)
[2017-10-12 10:31] LABS: ALBUMIN 3.1 GM/DL (3.2-5.2); ANION GAP 9 MEQ/L (8-16); BLOOD UREA NITROGEN 72 MG/DL (7-18); CALCIUM LEVEL 8.9 MG/DL (8.8-10.2); CARBON DIOXIDE LEVEL 32 MEQ/L (21-32); CHLORIDE LEVEL 95 MEQ/L (98-107); CREATININE FOR GFR 1.58 MG/DL (0.70-1.30); GLOMERULAR FILTRATION RATE 45.9 (>42); GLUCOSE, FASTING 175 MG/DL (70-100); PHOSPHORUS LEVEL 2.3 MG/DL (2.5-4.9); POTASSIUM SERUM 4.4 MEQ/L (3.5-5.1); SODIUM LEVEL 136 MEQ/L (136-145)
[2017-10-12] MEDS ORDERED: CARVedilol 3.125 MG TAB PO (21:00)
[2017-10-12] MEDS: CLOPIDOGREL 75 MG TAB PO (22:09)
[2017-10-12] MEDS: FINASTERIDE 5 MG TAB PO (22:09)
[2017-10-12] MEDS: TAMSULOSIN 0.4 MG CAP PO (22:09)
[2017-10-12] MEDS: OMEPRAZOLE 20 MG CAP PO (22:09)
[2017-10-12] MEDS: ASPIRIN 81 MG ENTERIC TAB PO (22:09)
[2017-10-12] MEDS: **NOTE PATIENT COMMENT** MISC XX (22:10)
[2017-10-12] MEDS: ANEXSIA, NORCO 7.5MG/325MG TABLET(HYDROCODONE/APAP) PO (22:14)
[2017-10-12] MEDS: ACETAMINOPHEN TAB 650MG DOSE (2X325MG) PO (23:38)
[2017-10-13] MEDS: CARVedilol 3.125 MG TAB PO ×5 (00:09→23:59)
[2017-10-13] MEDS: LEVOTHYROXINE 25MCG TABLET (0.025MG) PO (05:34)
[2017-10-13] MEDS: HEPARIN SOD (PORCINE) 5000 UNITS/ML VIAL SC ×3 (05:35→21:45)
[2017-10-13] MEDS: ANEXSIA, NORCO 7.5MG/325MG TABLET(HYDROCODONE/APAP) PO ×2 (05:35→20:17)
[2017-10-13 06:58] LABS: DIGOXIN LEVEL 0.7 NG/ML (0.5-2.0)
[2017-10-13] MEDS: MIRALAX *UNIT DOSE* 17GM PACKET PO (08:15)
[2017-10-13] MEDS: MAGNESIUM OXIDE 400 MG TAB (MAG-OX) PO ×2 (08:15→20:17)
[2017-10-13] MEDS: DOCUSATE SODIUM 100 MG CAP PO ×2 (08:15→20:18)
[2017-10-13] MEDS: DULoxetine 30 MG CAP (CYMBALTA) PO (08:15)
[2017-10-13] MEDS: VITAMIN D 1,000 INTERNATIONAL UNITS TABLET PO (08:15)
[2017-10-13] MEDS: SENOKOT S TAB PO ×2 (08:15→20:17)
[2017-10-13] MEDS: TORSEMIDE 20 MG TAB PO ×2 (08:15→17:37)
[2017-10-13] MEDS: FERROUS SULFATE 325MG TAB PO (08:15)
[2017-10-13] MEDS: GABAPENTIN 100 MG CAP PO ×2 (08:16→09:00)
[2017-10-13] MEDS: LIDOCAINE 5% (LIDODERM) PATCH TD (08:16)
[2017-10-13] MEDS: CAPSAICIN 0.025% CR 60 GM TOP ×4 (08:17→20:17)
[2017-10-13 10:57] LABS: ALBUMIN 2.8 GM/DL (3.2-5.2); ANION GAP 8 MEQ/L (8-16); BLOOD UREA NITROGEN 68 MG/DL (7-18); CALCIUM LEVEL 9.1 MG/DL (8.8-10.2); CARBON DIOXIDE LEVEL 33 MEQ/L (21-32); CHLORIDE LEVEL 96 MEQ/L (98-107); CREATININE FOR GFR 1.52 MG/DL (0.70-1.30); GLUCOSE, FASTING 155 MG/DL (70-100); PHOSPHORUS LEVEL 2.9 MG/DL (2.5-4.9); POTASSIUM SERUM 3.9 MEQ/L (3.5-5.1); SODIUM LEVEL 137 MEQ/L (136-145)
[2017-10-13] MEDS: ACETAMINOPHEN TAB 650MG DOSE (2X325MG) PO (11:00)
[2017-10-13] MEDS: ASPIRIN 81 MG ENTERIC TAB PO (20:16)
[2017-10-13] MEDS: FINASTERIDE 5 MG TAB PO (20:16)
[2017-10-13] MEDS: OMEPRAZOLE 20 MG CAP PO (20:17)
[2017-10-13] MEDS: TAMSULOSIN 0.4 MG CAP PO (20:17)
[2017-10-13] MEDS: CLOPIDOGREL 75 MG TAB PO (20:17)
[2017-10-13] MEDS: **NOTE PATIENT COMMENT** MISC XX (21:54)
[2017-10-14] MEDS: ANEXSIA, NORCO 7.5MG/325MG TABLET(HYDROCODONE/APAP) PO ×3 (02:04→18:12)
[2017-10-14] MEDS: LEVOTHYROXINE 25MCG TABLET (0.025MG) PO (05:58)
[2017-10-14] MEDS: CARVedilol 3.125 MG TAB PO (05:58)
[2017-10-14] MEDS: HEPARIN SOD (PORCINE) 5000 UNITS/ML VIAL SC ×3 (05:59→21:30)
[2017-10-14] MEDS: ACETAMINOPHEN TAB 650MG DOSE (2X325MG) PO (06:02)
[2017-10-14 06:14] LABS: HEMATOCRIT 30.3 % (42.0-52.0); HEMOGLOBIN 9.8 g/dl (14.0-18.0); MEAN CORPUSCULAR HEMOGLOBIN 30.1 pg (27.0-33.0); MEAN CORPUSCULAR HGB CONC 32.3 g/dl (32.0-36.5); MEAN CORPUSCULAR VOLUME 92.9 fl (80.0-96.0); PLATELET COUNT, AUTOMATED 293 10^3/uL (150-450); RED BLOOD COUNT 3.26 10^6/uL (4.30-6.10); RED CELL DISTRIBUTION WIDTH 17.8 % (11.5-14.5); WHITE BLOOD COUNT 9.7 10^3/uL (4.0-10.0)
[2017-10-14 06:31] LABS: ANION GAP 7 MEQ/L (8-16); BLOOD UREA NITROGEN 62 MG/DL (7-18); CALCIUM LEVEL 9.1 MG/DL (8.8-10.2); CARBON DIOXIDE LEVEL 32 MEQ/L (21-32); CHLORIDE LEVEL 96 MEQ/L (98-107); CREATININE FOR GFR 1.56 MG/DL (0.70-1.30); GLOMERULAR FILTRATION RATE 46.5 (>42); GLUCOSE, FASTING 182 MG/DL (70-100); POTASSIUM SERUM 4.4 MEQ/L (3.5-5.1); SODIUM LEVEL 135 MEQ/L (136-145)
[2017-10-14] MEDS: MAGNESIUM OXIDE 400 MG TAB (MAG-OX) PO ×2 (08:37→21:30)
[2017-10-14] MEDS: TORSEMIDE 20 MG TAB PO ×2 (08:37→18:13)
[2017-10-14] MEDS: SENOKOT S TAB PO ×2 (08:37→21:30)
[2017-10-14] MEDS: DOCUSATE SODIUM 100 MG CAP PO ×2 (08:37→21:30)
[2017-10-14] MEDS: GABAPENTIN 100 MG CAP PO ×2 (08:37→08:39)
[2017-10-14] MEDS: VITAMIN D 1,000 INTERNATIONAL UNITS TABLET PO (08:37)
[2017-10-14] MEDS: FERROUS SULFATE 325MG TAB PO (08:38)
[2017-10-14] MEDS: MIRALAX *UNIT DOSE* 17GM PACKET PO (08:38)
[2017-10-14] MEDS: CAPSAICIN 0.025% CR 60 GM TOP ×4 (08:38→21:31)
[2017-10-14] MEDS: DULoxetine 30 MG CAP (CYMBALTA) PO (08:38)
[2017-10-14] MEDS: LIDOCAINE 5% (LIDODERM) PATCH TD (08:38)
[2017-10-14] MEDS: CARVedilol 6.25 MG TAB PO ×2 (12:52→18:11)
[2017-10-14] MEDS: ASPIRIN 81 MG ENTERIC TAB PO (21:30)
[2017-10-14] MEDS: TAMSULOSIN 0.4 MG CAP PO (21:30)
[2017-10-14] MEDS: CLOPIDOGREL 75 MG TAB PO (21:30)
[2017-10-14] MEDS: FINASTERIDE 5 MG TAB PO (21:30)
[2017-10-14] MEDS: OMEPRAZOLE 20 MG CAP PO (21:30)
[2017-10-14] MEDS: **NOTE PATIENT COMMENT** MISC XX (21:31)
[2017-10-15] MEDS: ANEXSIA, NORCO 7.5MG/325MG TABLET(HYDROCODONE/APAP) PO ×3 (00:28→12:22)
[2017-10-15] MEDS: CARVedilol 6.25 MG TAB PO ×3 (00:29→12:22)
[2017-10-15] MEDS: LEVOTHYROXINE 25MCG TABLET (0.025MG) PO (06:30)
[2017-10-15] MEDS: HEPARIN SOD (PORCINE) 5000 UNITS/ML VIAL SC (06:31)
[2017-10-15 06:39] LABS: HEMATOCRIT 29.2 % (42.0-52.0); HEMOGLOBIN 9.2 g/dl (14.0-18.0); MEAN CORPUSCULAR HEMOGLOBIN 29.4 pg (27.0-33.0); MEAN CORPUSCULAR HGB CONC 31.5 g/dl (32.0-36.5); MEAN CORPUSCULAR VOLUME 93.3 fl (80.0-96.0); PLATELET COUNT, AUTOMATED 278 10^3/uL (150-450); RED BLOOD COUNT 3.13 10^6/uL (4.30-6.10); RED CELL DISTRIBUTION WIDTH 17.8 % (11.5-14.5)
[2017-10-15 06:57] LABS: ANION GAP 7 MEQ/L (8-16); BLOOD UREA NITROGEN 55 MG/DL (7-18); CALCIUM LEVEL 9.1 MG/DL (8.8-10.2); CARBON DIOXIDE LEVEL 32 MEQ/L (21-32); CHLORIDE LEVEL 96 MEQ/L (98-107); CREATININE FOR GFR 1.45 MG/DL (0.70-1.30); GLOMERULAR FILTRATION RATE 50.6 (>42); GLUCOSE, FASTING 150 MG/DL (70-100); POTASSIUM SERUM 4.1 MEQ/L (3.5-5.1); SODIUM LEVEL 135 MEQ/L (136-145)
[2017-10-15] MEDS: MAGNESIUM OXIDE 400 MG TAB (MAG-OX) PO (09:00)
[2017-10-15] MEDS: MIRALAX *UNIT DOSE* 17GM PACKET PO (09:35)
[2017-10-15] MEDS: VITAMIN D 1,000 INTERNATIONAL UNITS TABLET PO (09:36)
[2017-10-15] MEDS: SENOKOT S TAB PO (09:36)
[2017-10-15] MEDS: DOCUSATE SODIUM 100 MG CAP PO (09:36)
[2017-10-15] MEDS: LIDOCAINE 5% (LIDODERM) PATCH TD (09:36)
[2017-10-15] MEDS: TORSEMIDE 20 MG TAB PO (09:37)
[2017-10-15] MEDS: GABAPENTIN 100 MG CAP PO (09:37)
[2017-10-15] MEDS: DULoxetine 30 MG CAP (CYMBALTA) PO (09:37)
[2017-10-15] MEDS: DIGOXIN 0.125 MG TAB PO (09:38)
[2017-10-15] MEDS: FERROUS SULFATE 325MG TAB PO (09:38)
[2017-10-15] MEDS: CAPSAICIN 0.025% CR 60 GM TOP (09:39)
== END 2017-10-15 17:08 | disposition home or self-care (01) | DRG 682 ==
LOC: M MSPAV 10-04 23:17 → M ED 08:28 → M MSPAV 10-04 23:22 → M ED INP 13:11 → M PCU 14:54
PROC: 30253N1 (ICD-10-PCS; principal; 2017-09-30)
DX: N17.9 Acute kidney failure, unspecified (principal); S72.115A Nondisplaced fracture of greater trochanter of left femur, initial encounter for closed fracture; J18.9 Pneumonia, unspecified organism; I47.1 Supraventricular tachycardia; I50.22 Chronic systolic (congestive) heart failure; I13.0 Hypertensive heart and chronic kidney disease with heart failure and stage 1 through stage 4 chronic kidney disease, or unspecified chronic kidney disease; E87.1 Hypo-osmolality and hyponatremia; E87.3 Alkalosis; R55 Syncope and collapse; I25.10 Atherosclerotic heart disease of native coronary artery without angina pectoris; E03.9 Hypothyroidism, unspecified; Z66 Do not resuscitate; K21.9 Gastro-esophageal reflux disease without esophagitis; E86.0 Dehydration; F32.9 Major depressive disorder, single episode, unspecified; I27.20 Pulmonary hypertension, unspecified; E11.40 Type 2 diabetes mellitus with diabetic neuropathy, unspecified; E83.42 Hypomagnesemia; W06.XXXA Fall from bed, initial encounter; R74.0 Nonspecific elevation of levels of transaminase and lactic acid dehydrogenase [LDH]; E87.6 Hypokalemia; D63.1 Anemia in chronic kidney disease; K59.00 Constipation, unspecified; Y92.013 Bedroom of single-family (private) house as the place of occurrence of the external cause; I25.5 Ischemic cardiomyopathy; N18.3 Chronic kidney disease, stage 3 (moderate); E11.22 Type 2 diabetes mellitus with diabetic chronic kidney disease; R30.0 Dysuria; N40.0 Benign prostatic hyperplasia without lower urinary tract symptoms; Z95.810 Presence of automatic (implantable) cardiac defibrillator; Z96.642 Presence of left artificial hip joint; Z95.1 Presence of aortocoronary bypass graft; Z79.82 Long term (current) use of aspirin; Z79.899 Other long term (current) drug therapy; Z79.02 Long term (current) use of antithrombotics/antiplatelets

== ENCOUNTER 2017-10-29 08:33 | Inpatient (IN) | payer MEDICARE, MEDICAID ==
[2017-10-29] MEDS: VITAMIN D 1,000 INTERNATIONAL UNITS TABLET PO (09:00)
[2017-10-29] MEDS: DULoxetine 20 MG CAP (CYMBALTA) PO (09:00)
[2017-10-29] MEDS: CitaloPRAM (CeleXA) 10 MG TABLET PO (09:00)
[2017-10-29 09:35] LABS: BASO # 0.1 10^3/uL (0.0-0.2); BASO % 0.4 % (0.0-1.0); EOS # 0.1 10^3/uL (0.0-0.50); HEMATOCRIT 33.8 % (42.0-52.0); HEMOGLOBIN 11.3 g/dl (14.0-18.0); IMMATURE GRANULOCYTE % 1.3 % (0-3.0); LYMPH # 1.6 10^3/uL (1.5-4.5); LYMPH % 13.2 % (24.0-44.0); MEAN CORPUSCULAR HEMOGLOBIN 30.5 pg (27.0-33.0); MEAN CORPUSCULAR HGB CONC 33.4 g/dl (32.0-36.5); MEAN CORPUSCULAR VOLUME 91.4 fl (80.0-96.0); MONO # 0.9 10^3/uL (0.0-0.8); MONO % 7.5 % (0.0-5.0); NEUTROPHILS # 9.3 10^3/uL (1.8-7.7); NEUTROPHILS % 76.6 % (36.0-66.0); PLATELET COUNT, AUTOMATED 256 10^3/uL (150-450); RED CELL DISTRIBUTION WIDTH 15.3 % (11.5-14.5); WHITE BLOOD COUNT 12.2 10^3/uL (4.0-10.0)
[2017-10-29] MEDS: SUCRALFATE SUSP 1GM/10ML UD PO (09:36)
[2017-10-29] MEDS: PROMETHAZINE INJ 25 MG/ML VIAL (J2550) IV (09:57)
[2017-10-29] MEDS: MORPHINE 2 MG/ML 1ML SYRINGE (J2270) IV (10:17)
[2017-10-29] MEDS ORDERED: MORPHINE 4 MG/ML 1ML VIAL (J2270) As Ordered (11:11)
[2017-10-29] MEDS: MORPHINE 4 MG/ML 1ML VIAL (J2270) IV (11:20)
[2017-10-29 11:46] LABS: ALBUMIN 3.6 GM/DL (3.2-5.2); ALBUMIN/GLOBULIN RATIO 0.82 (1.00-1.93); ALKALINE PHOSPHATASE 224 U/L (45-117); ALT/SGPT 14 U/L (12-78); ANION GAP 9 MEQ/L (8-16); AST/SGOT 15 U/L (7-37); BILIRUBIN,DIRECT 0.4 MG/DL (0.0-0.2); BILIRUBIN,TOTAL 1.2 MG/DL (0.2-1.0); BLOOD UREA NITROGEN 70 MG/DL (7-18); CALCIUM LEVEL 10.2 MG/DL (8.8-10.2); CARBON DIOXIDE LEVEL 36 MEQ/L (21-32); CHLORIDE LEVEL 86 MEQ/L (98-107); CK-MB VALUE MASS 2.9 NG/ML (0.0-3.6); CPK CREATINE PHOSPHOKINASE 42 U/L (39-308); CREATININE FOR GFR 1.85 MG/DL (0.70-1.30); GLOMERULAR FILTRATION RATE 38.2 (>42); GLUCOSE, FASTING 192 MG/DL (70-100); LIPASE 171 U/L (73-393); POTASSIUM SERUM 3.5 MEQ/L (3.5-5.1); SODIUM LEVEL 131 MEQ/L (136-145); TROPONIN I 0.02 NG/ML (< 0.10)
[2017-10-29 11:55] LABS: NT-PRO BNP 9410 PG/ML (<125)
[2017-10-29] MEDS: FUROSEMIDE 40 MG/4 ML VIAL (J1940) IV ×2 (14:00→18:00)
[2017-10-29] MEDS ORDERED: ONDANSETRON 4MG/2ML VIAL (J2405) IV (14:45)
[2017-10-29] MEDS ORDERED: FLUTICASONE PROP 0.05% NASAL SPRAY 16 GM (FLONASE) (14:45)
[2017-10-29 16:11] LABS: MAGNESIUM LEVEL 2.2 MG/DL (1.8-2.4)
[2017-10-29 18:30] LABS: ALBUMIN 3.6 GM/DL (3.2-5.2); ALBUMIN/GLOBULIN RATIO 0.84 (1.00-1.93); ALKALINE PHOSPHATASE 215 U/L (45-117); ALT/SGPT 12 U/L (12-78); ANION GAP 9 MEQ/L (8-16); AST/SGOT 13 U/L (7-37); BILIRUBIN,TOTAL 1.5 MG/DL (0.2-1.0); BLOOD UREA NITROGEN 67 MG/DL (7-18); CARBON DIOXIDE LEVEL 37 MEQ/L (21-32); CHLORIDE LEVEL 87 MEQ/L (98-107); CK-MB VALUE MASS 2.3 NG/ML (0.0-3.6); CPK CREATINE PHOSPHOKINASE 36 U/L (39-308); CREATININE FOR GFR 1.71 MG/DL (0.70-1.30); GLOMERULAR FILTRATION RATE 41.9 (>42); GLUCOSE, FASTING 150 MG/DL (70-100); MB/CK RELATIVE INDEX 6.38 (< OR =4); POTASSIUM SERUM 3.3 MEQ/L (3.5-5.1); SODIUM LEVEL 133 MEQ/L (136-145); TOTAL PROTEIN 7.9 GM/DL (6.4-8.2); TROPONIN I 0.02 NG/ML (< 0.10)
[2017-10-29] MEDS ORDERED: SLF 3 ML SYR IV (20:30)
[2017-10-29] MEDS: OMEPRAZOLE 20 MG CAP PO (20:49)
[2017-10-29] MEDS: SENOKOT S TAB PO (20:49)
[2017-10-29] MEDS: TAMSULOSIN 0.4 MG CAP PO (20:49)
[2017-10-29] MEDS: CLOPIDOGREL 75 MG TAB PO (20:49)
[2017-10-29] MEDS: GABAPENTIN 100 MG CAP PO (20:49)
[2017-10-29] MEDS: MAGNESIUM OXIDE 400 MG TAB (MAG-OX) PO (20:50)
[2017-10-29] MEDS: FINASTERIDE 5 MG TAB PO (20:50)
[2017-10-29] MEDS: LEVOTHYROXINE 25MCG TABLET (0.025MG) PO (20:51)
[2017-10-29] MEDS: ASPIRIN 81 MG ENTERIC TAB PO (20:51)
[2017-10-29] MEDS: ONDANSETRON 4MG/2ML VIAL (J2405) IV (20:51)
[2017-10-29] MEDS: CARVedilol 12.5 MG TAB PO (20:51)
[2017-10-29] MEDS: SLF 3 ML SYR IV (20:52)
[2017-10-29] MEDS: ANEXSIA, NORCO 7.5MG/325MG TABLET(HYDROCODONE/APAP) PO (20:57)
[2017-10-29] MEDS: POTASSIUM CHLORIDE 10 MEQ SR TABLET PO ×2 (21:00→22:41)
[2017-10-29 22:30] LABS: KETONE, URINE AUTO RFX NEGATIVE (NEGATIVE); LEUKOCYTE ESTERASE UR AUTO RFX NEGATIVE (NEGATIVE); NITRITE, URINE AUTO RFX NEGATIVE (NEGATIVE); RBC, URINE AUTO RFX 1 /HPF (0-3); SPECIFIC GRAVITY UR AUTO RFX 1.006 (1.002-1.035); SQUAM EPITHELIAL CELL UR AURFX 0 /HPF (0-6); WBC, URINE AUTO RFX 0 /HPF (0-3)
[2017-10-30] MEDS: ONDANSETRON 4MG/2ML VIAL (J2405) IV ×4 (00:33→18:37)
[2017-10-30] MEDS: FUROSEMIDE 40 MG/4 ML VIAL (J1940) IV ×4 (00:33→18:37)
[2017-10-30 05:18] LABS: BASO % 0.3 % (0.0-1.0); EOS # 0.2 10^3/uL (0.0-0.50); EOS % 1.2 % (0.0-3.0); HEMATOCRIT 35.3 % (42.0-52.0); HEMOGLOBIN 11.6 g/dl (14.0-18.0); IMMATURE GRANULOCYTE % 0.7 % (0-3.0); LYMPH # 1.6 10^3/uL (1.5-4.5); LYMPH % 10.7 % (24.0-44.0); MEAN CORPUSCULAR HEMOGLOBIN 30.1 pg (27.0-33.0); MEAN CORPUSCULAR HGB CONC 32.9 g/dl (32.0-36.5); MEAN CORPUSCULAR VOLUME 91.7 fl (80.0-96.0); MONO # 1.3 10^3/uL (0.0-0.8); MONO % 8.8 % (0.0-5.0); NEUTROPHILS # 11.5 10^3/uL (1.8-7.7); NEUTROPHILS % 78.3 % (36.0-66.0); PLATELET COUNT, AUTOMATED 241 10^3/uL (150-450); RED BLOOD COUNT 3.85 10^6/uL (4.30-6.10); WHITE BLOOD COUNT 14.7 10^3/uL (4.0-10.0)
[2017-10-30 05:49] LABS: ALBUMIN 3.1 GM/DL (3.2-5.2); ALBUMIN/GLOBULIN RATIO 0.63 (1.00-1.93); ALKALINE PHOSPHATASE 213 U/L (45-117); ALT/SGPT 12 U/L (12-78); ANION GAP 10 MEQ/L (8-16); AST/SGOT 13 U/L (7-37); BILIRUBIN,TOTAL 2.2 MG/DL (0.2-1.0); BLOOD UREA NITROGEN 64 MG/DL (7-18); CALCIUM LEVEL 9.8 MG/DL (8.8-10.2); CARBON DIOXIDE LEVEL 37 MEQ/L (21-32); CHLORIDE LEVEL 85 MEQ/L (98-107); CK-MB VALUE MASS 1.1 NG/ML (0.0-3.6); CPK CREATINE PHOSPHOKINASE 20 U/L (39-308); CREATININE FOR GFR 1.79 MG/DL (0.70-1.30); GLOMERULAR FILTRATION RATE 39.7 (>42); GLUCOSE, FASTING 159 MG/DL (70-100); POTASSIUM SERUM 3.5 MEQ/L (3.5-5.1); SODIUM LEVEL 132 MEQ/L (136-145); TROPONIN I < 0.02 NG/ML (< 0.10)
[2017-10-30] MEDS: SLF 3 ML SYR IV ×3 (06:11→22:54)
[2017-10-30] MEDS: ANEXSIA, NORCO 7.5MG/325MG TABLET(HYDROCODONE/APAP) PO (06:32)
[2017-10-30] MEDS: DULoxetine 20 MG CAP (CYMBALTA) PO (09:05)
[2017-10-30] MEDS: DIGOXIN 0.125 MG TAB PO (09:05)
[2017-10-30] MEDS: VITAMIN D 1,000 INTERNATIONAL UNITS TABLET PO (09:05)
[2017-10-30] MEDS: POTASSIUM CHLORIDE 10 MEQ SR TABLET PO ×3 (09:06→22:47)
[2017-10-30] MEDS: SENOKOT S TAB PO ×2 (09:06→22:46)
[2017-10-30] MEDS: FERROUS SULFATE 325MG TAB PO (09:06)
[2017-10-30] MEDS: MAGNESIUM OXIDE 400 MG TAB (MAG-OX) PO ×2 (09:07→22:47)
[2017-10-30] MEDS: CARVedilol 12.5 MG TAB PO ×2 (09:07→22:48)
[2017-10-30] MEDS: CitaloPRAM (CeleXA) 10 MG TABLET PO (09:10)
[2017-10-30 10:11] LABS: CPK CREATINE PHOSPHOKINASE 20 U/L (39-308); TROPONIN I < 0.02 NG/ML (< 0.10)
[2017-10-30] MEDS: MOM 30ML SUSPENSION UDC PO (17:07)
[2017-10-30] MEDS: CLOPIDOGREL 75 MG TAB PO (22:46)
[2017-10-30] MEDS: GABAPENTIN 100 MG CAP PO (22:46)
[2017-10-30] MEDS: ASPIRIN 81 MG ENTERIC TAB PO (22:47)
[2017-10-30] MEDS: OMEPRAZOLE 20 MG CAP PO (22:47)
[2017-10-30] MEDS: FINASTERIDE 5 MG TAB PO (22:47)
[2017-10-30] MEDS: LEVOTHYROXINE 25MCG TABLET (0.025MG) PO (22:49)
[2017-10-30] MEDS: TAMSULOSIN 0.4 MG CAP PO (22:54)
[2017-10-31] MEDS: ONDANSETRON 4MG/2ML VIAL (J2405) IV ×4 (00:41→17:40)
[2017-10-31] MEDS: FUROSEMIDE 40 MG/4 ML VIAL (J1940) IV (00:42)
[2017-10-31] MEDS: ANEXSIA, NORCO 7.5MG/325MG TABLET(HYDROCODONE/APAP) PO ×3 (01:16→17:41)
[2017-10-31 05:38] LABS: BASO # 0.1 10^3/uL (0.0-0.2); BASO % 0.3 % (0.0-1.0); EOS # 0.2 10^3/uL (0.0-0.50); EOS % 1.3 % (0.0-3.0); HEMATOCRIT 31.8 % (42.0-52.0); HEMOGLOBIN 10.4 g/dl (14.0-18.0); IMMATURE GRANULOCYTE % 0.6 % (0-3.0); LYMPH # 2.4 10^3/uL (1.5-4.5); LYMPH % 16.4 % (24.0-44.0); MEAN CORPUSCULAR HGB CONC 32.7 g/dl (32.0-36.5); MEAN CORPUSCULAR VOLUME 91.6 fl (80.0-96.0); MONO # 1.5 10^3/uL (0.0-0.8); MONO % 10.3 % (0.0-5.0); NEUTROPHILS # 10.2 10^3/uL (1.8-7.7); NEUTROPHILS % 71.1 % (36.0-66.0); PLATELET COUNT, AUTOMATED 244 10^3/uL (150-450); RED BLOOD COUNT 3.47 10^6/uL (4.30-6.10); RED CELL DISTRIBUTION WIDTH 14.8 % (11.5-14.5); WHITE BLOOD COUNT 14.3 10^3/uL (4.0-10.0)
[2017-10-31 06:03] LABS: ALBUMIN 2.9 GM/DL (3.2-5.2); ALBUMIN/GLOBULIN RATIO 0.63 (1.00-1.93); ALKALINE PHOSPHATASE 199 U/L (45-117); ALT/SGPT 11 U/L (12-78); ANION GAP 7 MEQ/L (8-16); AST/SGOT 10 U/L (7-37); BILIRUBIN,TOTAL 1.3 MG/DL (0.2-1.0); BLOOD UREA NITROGEN 71 MG/DL (7-18); CALCIUM LEVEL 9.4 MG/DL (8.8-10.2); CARBON DIOXIDE LEVEL 39 MEQ/L (21-32); CHLORIDE LEVEL 84 MEQ/L (98-107); CREATININE FOR GFR 2.19 MG/DL (0.70-1.30); GLOMERULAR FILTRATION RATE 31.5 (>42); GLUCOSE, FASTING 190 MG/DL (70-100); MAGNESIUM LEVEL 2.5 MG/DL (1.8-2.4); POTASSIUM SERUM 3.9 MEQ/L (3.5-5.1); SODIUM LEVEL 130 MEQ/L (136-145); TOTAL PROTEIN 7.5 GM/DL (6.4-8.2)
[2017-10-31] MEDS: SLF 3 ML SYR IV ×3 (07:40→21:27)
[2017-10-31] MEDS: MIRALAX *UNIT DOSE* 17GM PACKET PO (08:02)
[2017-10-31] MEDS: VITAMIN D 1,000 INTERNATIONAL UNITS TABLET PO (08:02)
[2017-10-31] MEDS: MAGNESIUM OXIDE 400 MG TAB (MAG-OX) PO ×3 (08:03→21:27)
[2017-10-31] MEDS: POTASSIUM CHLORIDE 10 MEQ SR TABLET PO ×3 (08:03→21:26)
[2017-10-31] MEDS: SENOKOT S TAB PO ×2 (08:04→21:25)
[2017-10-31] MEDS: CitaloPRAM (CeleXA) 10 MG TABLET PO (08:04)
[2017-10-31] MEDS: FERROUS SULFATE 325MG TAB PO (08:04)
[2017-10-31] MEDS: DULoxetine 20 MG CAP (CYMBALTA) PO (08:04)
[2017-10-31] MEDS: CARVedilol 12.5 MG TAB PO ×2 (09:00→21:26)
[2017-10-31] MEDS: GABAPENTIN 100 MG CAP PO ×3 (09:14→21:25)
[2017-10-31] MEDS: ACETAMINOPHEN TAB 650MG DOSE (2X325MG) PO (20:05)
[2017-10-31] MEDS: TAMSULOSIN 0.4 MG CAP PO (21:25)
[2017-10-31] MEDS: CLOPIDOGREL 75 MG TAB PO (21:25)
[2017-10-31] MEDS: MOM 30ML SUSPENSION UDC PO (21:25)
[2017-10-31] MEDS: OMEPRAZOLE 20 MG CAP PO (21:25)
[2017-10-31] MEDS: MORPHINE 4 MG/ML 1ML VIAL (J2270) IV (21:27)
[2017-10-31] MEDS: LEVOTHYROXINE 25MCG TABLET (0.025MG) PO (21:27)
[2017-10-31] MEDS: ASPIRIN 81 MG ENTERIC TAB PO (21:27)
[2017-10-31] MEDS: FINASTERIDE 5 MG TAB PO (21:29)
[2017-11-01 05:11] LABS: BASO % 0.3 % (0.0-1.0); EOS # 0.2 10^3/uL (0.0-0.50); EOS % 1.3 % (0.0-3.0); HEMATOCRIT 28.5 % (42.0-52.0); HEMOGLOBIN 9.5 g/dl (14.0-18.0); IMMATURE GRANULOCYTE % 0.8 % (0-3.0); LYMPH # 2.3 10^3/uL (1.5-4.5); LYMPH % 15.7 % (24.0-44.0); MEAN CORPUSCULAR HEMOGLOBIN 30.4 pg (27.0-33.0); MEAN CORPUSCULAR HGB CONC 33.3 g/dl (32.0-36.5); MEAN CORPUSCULAR VOLUME 91.3 fl (80.0-96.0); MONO # 1.6 10^3/uL (0.0-0.8); MONO % 10.7 % (0.0-5.0); NEUTROPHILS # 10.3 10^3/uL (1.8-7.7); NEUTROPHILS % 71.2 % (36.0-66.0); PLATELET COUNT, AUTOMATED 205 10^3/uL (150-450); RED BLOOD COUNT 3.12 10^6/uL (4.30-6.10); RED CELL DISTRIBUTION WIDTH 14.9 % (11.5-14.5); WHITE BLOOD COUNT 14.4 10^3/uL (4.0-10.0)
[2017-11-01 05:33] LABS: ALBUMIN 2.7 GM/DL (3.2-5.2); ALBUMIN/GLOBULIN RATIO 0.61 (1.00-1.93); ALKALINE PHOSPHATASE 184 U/L (45-117); ALT/SGPT 12 U/L (12-78); ANION GAP 5 MEQ/L (8-16); AST/SGOT 8 U/L (7-37); BILIRUBIN,TOTAL 1.2 MG/DL (0.2-1.0); BLOOD UREA NITROGEN 76 MG/DL (7-18); CALCIUM LEVEL 8.7 MG/DL (8.8-10.2); CARBON DIOXIDE LEVEL 37 MEQ/L (21-32); CHLORIDE LEVEL 86 MEQ/L (98-107); CREATININE FOR GFR 2.35 MG/DL (0.70-1.30); GLUCOSE, FASTING 171 MG/DL (70-100); MAGNESIUM LEVEL 2.7 MG/DL (1.8-2.4); POTASSIUM SERUM 4.5 MEQ/L (3.5-5.1); SODIUM LEVEL 128 MEQ/L (136-145); TOTAL PROTEIN 7.1 GM/DL (6.4-8.2)
[2017-11-01] MEDS: ONDANSETRON 4MG/2ML VIAL (J2405) IV ×5 (06:16→23:52)
[2017-11-01] MEDS: SLF 3 ML SYR IV ×3 (06:16→21:04)
[2017-11-01] MEDS: DULoxetine 20 MG CAP (CYMBALTA) PO (08:06)
[2017-11-01] MEDS: CitaloPRAM (CeleXA) 10 MG TABLET PO (08:06)
[2017-11-01] MEDS: VITAMIN D 1,000 INTERNATIONAL UNITS TABLET PO (08:06)
[2017-11-01] MEDS: GABAPENTIN 100 MG CAP PO ×3 (08:06→21:03)
[2017-11-01] MEDS: SENOKOT S TAB PO ×2 (08:06→21:03)
[2017-11-01] MEDS: POTASSIUM CHLORIDE 10 MEQ SR TABLET PO (08:07)
[2017-11-01] MEDS: FERROUS SULFATE 325MG TAB PO (08:07)
[2017-11-01] MEDS: MAGNESIUM OXIDE 400 MG TAB (MAG-OX) PO ×3 (08:08→21:03)
[2017-11-01] MEDS: CARVedilol 12.5 MG TAB PO ×2 (08:08→21:01)
[2017-11-01] MEDS: MIRALAX *UNIT DOSE* 17GM PACKET PO (08:08)
[2017-11-01] MEDS: CAPSAICIN 0.025% CR 60 GM TOP ×3 (12:50→21:03)
[2017-11-01] MEDS: METOCLOPRAMIDE INJ 10MG/2ML VIAL (J2765) IV (21:00)
[2017-11-01] MEDS: ASPIRIN 81 MG ENTERIC TAB PO (21:01)
[2017-11-01] MEDS: LEVOTHYROXINE 25MCG TABLET (0.025MG) PO (21:02)
[2017-11-01] MEDS: PERCOCET 5MG/325MG TAB PO (21:02)
[2017-11-01] MEDS: TAMSULOSIN 0.4 MG CAP PO (21:02)
[2017-11-01] MEDS: CLOPIDOGREL 75 MG TAB PO (21:02)
[2017-11-01] MEDS: OMEPRAZOLE 20 MG CAP PO (21:02)
[2017-11-01] MEDS: FINASTERIDE 5 MG TAB PO (21:03)
[2017-11-01] MEDS: MOM 30ML SUSPENSION UDC PO (21:20)
[2017-11-01] MEDS: ACETAMINOPHEN TAB 650MG DOSE (2X325MG) PO (23:53)
[2017-11-02 04:42] LABS: BASO # 0.1 10^3/uL (0.0-0.2); BASO % 0.3 % (0.0-1.0); EOS # 0.2 10^3/uL (0.0-0.50); EOS % 1.1 % (0.0-3.0); HEMATOCRIT 28.3 % (42.0-52.0); HEMOGLOBIN 9.2 g/dl (14.0-18.0); IMMATURE GRANULOCYTE % 0.7 % (0-3.0); LYMPH # 2.2 10^3/uL (1.5-4.5); LYMPH % 14.2 % (24.0-44.0); MEAN CORPUSCULAR HGB CONC 32.5 g/dl (32.0-36.5); MEAN CORPUSCULAR VOLUME 92.2 fl (80.0-96.0); MONO # 1.2 10^3/uL (0.0-0.8); MONO % 7.9 % (0.0-5.0); NEUTROPHILS # 11.8 10^3/uL (1.8-7.7); NEUTROPHILS % 75.8 % (36.0-66.0); PLATELET COUNT, AUTOMATED 216 10^3/uL (150-450); RED BLOOD COUNT 3.07 10^6/uL (4.30-6.10); RED CELL DISTRIBUTION WIDTH 14.9 % (11.5-14.5); WHITE BLOOD COUNT 15.5 10^3/uL (4.0-10.0)
[2017-11-02 04:59] LABS: ALBUMIN 2.6 GM/DL (3.2-5.2); ALBUMIN/GLOBULIN RATIO 0.57 (1.00-1.93); ALKALINE PHOSPHATASE 221 U/L (45-117); ALT/SGPT 11 U/L (12-78); ANION GAP 8 MEQ/L (8-16); AST/SGOT 9 U/L (7-37); BLOOD UREA NITROGEN 86 MG/DL (7-18); CALCIUM LEVEL 8.9 MG/DL (8.8-10.2); CARBON DIOXIDE LEVEL 34 MEQ/L (21-32); CHLORIDE LEVEL 86 MEQ/L (98-107); CREATININE FOR GFR 2.61 MG/DL (0.70-1.30); GLOMERULAR FILTRATION RATE 25.7 (>42); GLUCOSE, FASTING 208 MG/DL (70-100); MAGNESIUM LEVEL 2.9 MG/DL (1.8-2.4); SODIUM LEVEL 128 MEQ/L (136-145); TOTAL PROTEIN 7.2 GM/DL (6.4-8.2)
[2017-11-02] MEDS: ONDANSETRON 4MG/2ML VIAL (J2405) IV ×2 (05:53→12:00)
[2017-11-02] MEDS: PERCOCET 5MG/325MG TAB PO ×3 (05:54→20:57)
[2017-11-02] MEDS: SLF 3 ML SYR IV ×3 (05:54→20:59)
[2017-11-02] MEDS: DIGOXIN 0.125 MG TAB PO (08:44)
[2017-11-02] MEDS: FERROUS SULFATE 325MG TAB PO (08:44)
[2017-11-02] MEDS: SENOKOT S TAB PO ×2 (08:45→20:57)
[2017-11-02] MEDS: CitaloPRAM (CeleXA) 10 MG TABLET PO (08:45)
[2017-11-02] MEDS: DULoxetine 20 MG CAP (CYMBALTA) PO (08:46)
[2017-11-02] MEDS: VITAMIN D 1,000 INTERNATIONAL UNITS TABLET PO (08:47)
[2017-11-02] MEDS: MAGNESIUM OXIDE 400 MG TAB (MAG-OX) PO ×2 (08:47→21:00)
[2017-11-02] MEDS: MIRALAX *UNIT DOSE* 17GM PACKET PO (08:47)
[2017-11-02] MEDS: GABAPENTIN 100 MG CAP PO ×3 (08:47→20:57)
[2017-11-02] MEDS: CARVedilol 12.5 MG TAB PO ×2 (08:47→20:56)
[2017-11-02] MEDS: CAPSAICIN 0.025% CR 60 GM TOP ×4 (08:55→20:58)
[2017-11-02] MEDS: BISACODYL 10 MG SUPP PR (10:18)
[2017-11-02] MEDS: ANEXSIA, NORCO 7.5MG/325MG TABLET(HYDROCODONE/APAP) PO (10:19)
[2017-11-02 10:20] LABS: URIC ACID 10.3 MG/DL (3.5-7.2)
[2017-11-02] MEDS: FLEET OIL RETENTION ENEMA PR (11:15)
[2017-11-02] MEDS: predniSONE 20 MG TAB PO (14:44)
[2017-11-02 17:02] LABS: BEDSIDE GLUCOSE 318 MG/DL (83-110)
[2017-11-02] MEDS: ASPIRIN 81 MG ENTERIC TAB PO (20:56)
[2017-11-02] MEDS: TAMSULOSIN 0.4 MG CAP PO (20:56)
[2017-11-02] MEDS: OMEPRAZOLE 20 MG CAP PO (20:56)
[2017-11-02] MEDS: LEVOTHYROXINE 25MCG TABLET (0.025MG) PO (20:56)
[2017-11-02] MEDS: FINASTERIDE 5 MG TAB PO (20:57)
[2017-11-02] MEDS: CLOPIDOGREL 75 MG TAB PO (20:57)
[2017-11-03 05:30] LABS: BASO % 0.2 % (0.0-1.0); EOS % 0.1 % (0.0-3.0); HEMATOCRIT 27.9 % (42.0-52.0); HEMOGLOBIN 9.2 g/dl (14.0-18.0); IMMATURE GRANULOCYTE % 0.7 % (0-3.0); LYMPH # 1.1 10^3/uL (1.5-4.5); LYMPH % 6.7 % (24.0-44.0); MEAN CORPUSCULAR HEMOGLOBIN 29.9 pg (27.0-33.0); MEAN CORPUSCULAR VOLUME 90.6 fl (80.0-96.0); MONO # 0.8 10^3/uL (0.0-0.8); MONO % 4.6 % (0.0-5.0); NEUTROPHILS # 14.5 10^3/uL (1.8-7.7); NEUTROPHILS % 87.7 % (36.0-66.0); PLATELET COUNT, AUTOMATED 209 10^3/uL (150-450); RED BLOOD COUNT 3.08 10^6/uL (4.30-6.10); RED CELL DISTRIBUTION WIDTH 14.6 % (11.5-14.5); WHITE BLOOD COUNT 16.5 10^3/uL (4.0-10.0)
[2017-11-03 05:50] LABS: ALBUMIN 2.8 GM/DL (3.2-5.2); ALBUMIN/GLOBULIN RATIO 0.56 (1.00-1.93); ALKALINE PHOSPHATASE 262 U/L (45-117); ALT/SGPT 13 U/L (12-78); ANION GAP 8 MEQ/L (8-16); AST/SGOT 15 U/L (7-37); BILIRUBIN,TOTAL 0.9 MG/DL (0.2-1.0); BLOOD UREA NITROGEN 93 MG/DL (7-18); CALCIUM LEVEL 9.2 MG/DL (8.8-10.2); CARBON DIOXIDE LEVEL 33 MEQ/L (21-32); CHLORIDE LEVEL 84 MEQ/L (98-107); CREATININE FOR GFR 2.63 MG/DL (0.70-1.30); GLOMERULAR FILTRATION RATE 25.5 (>42); GLUCOSE, FASTING 274 MG/DL (70-100); MAGNESIUM LEVEL 3.2 MG/DL (1.8-2.4); SODIUM LEVEL 125 MEQ/L (136-145); TOTAL PROTEIN 7.8 GM/DL (6.4-8.2)
[2017-11-03 05:54] LABS: POTASSIUM SERUM 5.6 MEQ/L (3.5-5.1)
[2017-11-03] MEDS: SLF 3 ML SYR IV ×3 (06:00→21:43)
[2017-11-03] MEDS: MIRALAX *UNIT DOSE* 17GM PACKET PO (09:47)
[2017-11-03] MEDS: DULoxetine 20 MG CAP (CYMBALTA) PO (09:47)
[2017-11-03] MEDS: CitaloPRAM (CeleXA) 10 MG TABLET PO (09:47)
[2017-11-03] MEDS: VITAMIN D 1,000 INTERNATIONAL UNITS TABLET PO (09:47)
[2017-11-03] MEDS: MAGNESIUM OXIDE 400 MG TAB (MAG-OX) PO ×2 (09:47→20:39)
[2017-11-03] MEDS: predniSONE 20 MG TAB PO (09:48)
[2017-11-03] MEDS: SENOKOT S TAB PO ×2 (09:48→20:38)
[2017-11-03] MEDS: GABAPENTIN 100 MG CAP PO ×3 (09:48→20:38)
[2017-11-03] MEDS: FERROUS SULFATE 325MG TAB PO (09:48)
[2017-11-03] MEDS: CARVedilol 12.5 MG TAB PO ×2 (09:48→20:37)
[2017-11-03] MEDS: CAPSAICIN 0.025% CR 60 GM TOP ×4 (09:49→20:39)
[2017-11-03] MEDS: MOM 30ML SUSPENSION UDC PO (09:57)
[2017-11-03] MEDS: PERCOCET 5MG/325MG TAB PO (09:57)
[2017-11-03] MEDS ORDERED: ONDANSETRON 4MG/2ML VIAL (J2405) IV (12:00)
[2017-11-03 12:11] LABS: BEDSIDE GLUCOSE 343 MG/DL (83-110)
[2017-11-03] MEDS: FLEET ENEMA PR (13:52)
[2017-11-03] MEDS: BISACODYL 10 MG SUPP PR (14:05)
[2017-11-03 18:09] LABS: BEDSIDE GLUCOSE 399 MG/DL (83-110)
[2017-11-03] MEDS: TAMSULOSIN 0.4 MG CAP PO (20:38)
[2017-11-03] MEDS: FINASTERIDE 5 MG TAB PO (20:38)
[2017-11-03] MEDS: CLOPIDOGREL 75 MG TAB PO (20:38)
[2017-11-03] MEDS: OMEPRAZOLE 20 MG CAP PO (20:38)
[2017-11-03] MEDS: LEVOTHYROXINE 25MCG TABLET (0.025MG) PO (20:38)
[2017-11-03] MEDS: ASPIRIN 81 MG ENTERIC TAB PO (20:38)
[2017-11-03] MEDS: ACETAMINOPHEN TAB 650MG DOSE (2X325MG) PO (20:39)
[2017-11-04 05:35] LABS: BASO % 0.2 % (0.0-1.0); EOS % 0.3 % (0.0-3.0); HEMATOCRIT 24.9 % (42.0-52.0); HEMOGLOBIN 8.2 g/dl (14.0-18.0); IMMATURE GRANULOCYTE % 0.9 % (0-3.0); LYMPH # 1.3 10^3/uL (1.5-4.5); LYMPH % 8.8 % (24.0-44.0); MEAN CORPUSCULAR HEMOGLOBIN 30.3 pg (27.0-33.0); MEAN CORPUSCULAR HGB CONC 32.9 g/dl (32.0-36.5); MEAN CORPUSCULAR VOLUME 91.9 fl (80.0-96.0); MONO # 0.7 10^3/uL (0.0-0.8); MONO % 4.8 % (0.0-5.0); PLATELET COUNT, AUTOMATED 219 10^3/uL (150-450); RED BLOOD COUNT 2.71 10^6/uL (4.30-6.10); RED CELL DISTRIBUTION WIDTH 14.6 % (11.5-14.5); WHITE BLOOD COUNT 15.3 10^3/uL (4.0-10.0)
[2017-11-04 06:00] LABS: ALBUMIN 2.6 GM/DL (3.2-5.2); ALBUMIN/GLOBULIN RATIO 0.57 (1.00-1.93); ALKALINE PHOSPHATASE 226 U/L (45-117); ALT/SGPT 14 U/L (12-78); ANION GAP 8 MEQ/L (8-16); AST/SGOT 12 U/L (7-37); BILIRUBIN,TOTAL 0.6 MG/DL (0.2-1.0); BLOOD UREA NITROGEN 95 MG/DL (7-18); CARBON DIOXIDE LEVEL 32 MEQ/L (21-32); CHLORIDE LEVEL 88 MEQ/L (98-107); CREATININE FOR GFR 2.42 MG/DL (0.70-1.30); GLUCOSE, FASTING 297 MG/DL (70-100); MAGNESIUM LEVEL 3.2 MG/DL (1.8-2.4); SODIUM LEVEL 128 MEQ/L (136-145); TOTAL PROTEIN 7.2 GM/DL (6.4-8.2)
[2017-11-04] MEDS: SLF 3 ML SYR IV ×3 (06:00→21:34)
[2017-11-04 06:01] LABS: POTASSIUM SERUM 5.2 MEQ/L (3.5-5.1)
[2017-11-04] MEDS: MIRALAX *UNIT DOSE* 17GM PACKET PO (08:28)
[2017-11-04] MEDS: MOM 30ML SUSPENSION UDC PO (08:28)
[2017-11-04] MEDS: SENOKOT S TAB PO ×2 (08:28→21:33)
[2017-11-04] MEDS: VITAMIN D 1,000 INTERNATIONAL UNITS TABLET PO (08:29)
[2017-11-04] MEDS: predniSONE 20 MG TAB PO (08:29)
[2017-11-04] MEDS: CitaloPRAM (CeleXA) 10 MG TABLET PO (08:29)
[2017-11-04] MEDS: DULoxetine 20 MG CAP (CYMBALTA) PO (08:29)
[2017-11-04] MEDS: GABAPENTIN 100 MG CAP PO ×3 (08:29→21:31)
[2017-11-04] MEDS: FERROUS SULFATE 325MG TAB PO (08:29)
[2017-11-04] MEDS: CARVedilol 12.5 MG TAB PO ×2 (08:32→21:31)
[2017-11-04] MEDS: CAPSAICIN 0.025% CR 60 GM TOP ×4 (08:33→21:34)
[2017-11-04 11:53] LABS: BEDSIDE GLUCOSE 383 MG/DL (83-110)
[2017-11-04 17:13] LABS: BEDSIDE GLUCOSE 445 MG/DL (83-110)
[2017-11-04] MEDS ORDERED: DEXTROSE 50% 50 ML SYRINGE IV (17:15)
[2017-11-04] MEDS ORDERED: GLUCAGON FOR INJ 1 MG VIAL (J1610) SC (17:15)
[2017-11-04] MEDS ORDERED: GLUCOSE 4 GM CHEW TABLET PO (17:15)
[2017-11-04] MEDS: HumaLOG INSULIN (NovoLOG) PER UNIT SC ×2 (18:22→21:00)
[2017-11-04 21:28] LABS: BEDSIDE GLUCOSE 358 MG/DL (83-110)
[2017-11-04] MEDS: ASPIRIN 81 MG ENTERIC TAB PO (21:31)
[2017-11-04] MEDS: TAMSULOSIN 0.4 MG CAP PO (21:31)
[2017-11-04] MEDS: CLOPIDOGREL 75 MG TAB PO (21:32)
[2017-11-04] MEDS: LEVOTHYROXINE 25MCG TABLET (0.025MG) PO (21:33)
[2017-11-04] MEDS: OMEPRAZOLE 20 MG CAP PO (21:33)
[2017-11-04] MEDS: FINASTERIDE 5 MG TAB PO (21:33)
[2017-11-05 05:32] LABS: BASO % 0.2 % (0.0-1.0); EOS # 0.1 10^3/uL (0.0-0.50); EOS % 0.5 % (0.0-3.0); HEMATOCRIT 25.5 % (42.0-52.0); HEMOGLOBIN 8.2 g/dl (14.0-18.0); IMMATURE GRANULOCYTE % 1.9 % (0-3.0); LYMPH # 2.1 10^3/uL (1.5-4.5); LYMPH % 12.9 % (24.0-44.0); MEAN CORPUSCULAR HEMOGLOBIN 30.1 pg (27.0-33.0); MEAN CORPUSCULAR HGB CONC 32.2 g/dl (32.0-36.5); MEAN CORPUSCULAR VOLUME 93.8 fl (80.0-96.0); MONO # 0.9 10^3/uL (0.0-0.8); MONO % 5.3 % (0.0-5.0); NEUTROPHILS # 12.9 10^3/uL (1.8-7.7); NEUTROPHILS % 79.2 % (36.0-66.0); PLATELET COUNT, AUTOMATED 246 10^3/uL (150-450); RED BLOOD COUNT 2.72 10^6/uL (4.30-6.10); RED CELL DISTRIBUTION WIDTH 14.9 % (11.5-14.5); WHITE BLOOD COUNT 16.3 10^3/uL (4.0-10.0)
[2017-11-05] MEDS: SLF 3 ML SYR IV ×3 (05:43→22:00)
[2017-11-05 06:01] LABS: ALBUMIN 2.6 GM/DL (3.2-5.2); ALBUMIN/GLOBULIN RATIO 0.57 (1.00-1.93); ALKALINE PHOSPHATASE 220 U/L (45-117); ALT/SGPT 13 U/L (12-78); ANION GAP 7 MEQ/L (8-16); AST/SGOT 9 U/L (7-37); BILIRUBIN,TOTAL 0.6 MG/DL (0.2-1.0); BLOOD UREA NITROGEN 90 MG/DL (7-18); CALCIUM LEVEL 8.8 MG/DL (8.8-10.2); CARBON DIOXIDE LEVEL 32 MEQ/L (21-32); CHLORIDE LEVEL 90 MEQ/L (98-107); CREATININE FOR GFR 2.17 MG/DL (0.70-1.30); GLOMERULAR FILTRATION RATE 31.8 (>42); GLUCOSE, FASTING 252 MG/DL (70-100); MAGNESIUM LEVEL 3.2 MG/DL (1.8-2.4); POTASSIUM SERUM 4.8 MEQ/L (3.5-5.1); SODIUM LEVEL 129 MEQ/L (136-145); TOTAL PROTEIN 7.2 GM/DL (6.4-8.2)
[2017-11-05] MEDS: HumaLOG INSULIN (NovoLOG) PER UNIT SC ×4 (09:00→22:32)
[2017-11-05] MEDS: GABAPENTIN 100 MG CAP PO ×3 (09:01→22:33)
[2017-11-05] MEDS: VITAMIN D 1,000 INTERNATIONAL UNITS TABLET PO (09:01)
[2017-11-05] MEDS: CitaloPRAM (CeleXA) 10 MG TABLET PO (09:01)
[2017-11-05] MEDS: DIGOXIN 0.125 MG TAB PO (09:01)
[2017-11-05] MEDS: CARVedilol 12.5 MG TAB PO ×2 (09:01→22:33)
[2017-11-05] MEDS: FERROUS SULFATE 325MG TAB PO (09:01)
[2017-11-05] MEDS: ASCORBIC ACID 500 MG TAB PO ×2 (09:02→22:34)
[2017-11-05] MEDS: MIRALAX *UNIT DOSE* 17GM PACKET PO (09:02)
[2017-11-05] MEDS: predniSONE 20 MG TAB PO (09:02)
[2017-11-05] MEDS: DULoxetine 20 MG CAP (CYMBALTA) PO (09:02)
[2017-11-05] MEDS: SENOKOT S TAB PO ×3 (09:02→22:41)
[2017-11-05] MEDS: CAPSAICIN 0.025% CR 60 GM TOP ×4 (09:03→22:34)
[2017-11-05 11:14] LABS: ESTIMATED AVERAGE GLUCOSE 134 MG/DL (60-110); HEMOGLOBIN A1c 6.3 %
[2017-11-05 11:55] LABS: BEDSIDE GLUCOSE 247 MG/DL (83-110)
[2017-11-05 16:51] LABS: BEDSIDE GLUCOSE 346 MG/DL (83-110)
[2017-11-05 22:06] LABS: BEDSIDE GLUCOSE 410 MG/DL (83-110)
[2017-11-05] MEDS: OMEPRAZOLE 20 MG CAP PO (22:33)
[2017-11-05] MEDS: LEVOTHYROXINE 25MCG TABLET (0.025MG) PO (22:33)
[2017-11-05] MEDS: TAMSULOSIN 0.4 MG CAP PO (22:33)
[2017-11-05] MEDS: ASPIRIN 81 MG ENTERIC TAB PO (22:33)
[2017-11-05] MEDS: CLOPIDOGREL 75 MG TAB PO (22:33)
[2017-11-05] MEDS: FINASTERIDE 5 MG TAB PO (22:34)
[2017-11-06] MEDS: SLF 3 ML SYR IV (05:28)
[2017-11-06 07:28] LABS: BASO % 0.2 % (0.0-1.0); EOS # 0.2 10^3/uL (0.0-0.50); EOS % 1.2 % (0.0-3.0); HEMATOCRIT 26.3 % (42.0-52.0); HEMOGLOBIN 8.4 g/dl (14.0-18.0); IMMATURE GRANULOCYTE % 4.7 % (0-3.0); LYMPH # 2.4 10^3/uL (1.5-4.5); LYMPH % 14.7 % (24.0-44.0); MEAN CORPUSCULAR HGB CONC 31.9 g/dl (32.0-36.5); MEAN CORPUSCULAR VOLUME 93.9 fl (80.0-96.0); MONO # 1.1 10^3/uL (0.0-0.8); MONO % 6.6 % (0.0-5.0); NEUTROPHILS # 11.8 10^3/uL (1.8-7.7); NEUTROPHILS % 72.6 % (36.0-66.0); PLATELET COUNT, AUTOMATED 282 10^3/uL (150-450); RED CELL DISTRIBUTION WIDTH 15.2 % (11.5-14.5); WHITE BLOOD COUNT 16.3 10^3/uL (4.0-10.0)
[2017-11-06 07:52] LABS: ALBUMIN 2.8 GM/DL (3.2-5.2); ALKALINE PHOSPHATASE 209 U/L (45-117); ALT/SGPT 17 U/L (12-78); ANION GAP 7 MEQ/L (8-16); AST/SGOT 12 U/L (7-37); BILIRUBIN,TOTAL 0.5 MG/DL (0.2-1.0); BLOOD UREA NITROGEN 86 MG/DL (7-18); CARBON DIOXIDE LEVEL 33 MEQ/L (21-32); CHLORIDE LEVEL 97 MEQ/L (98-107); CREATININE FOR GFR 1.74 MG/DL (0.70-1.30); GLUCOSE, FASTING 151 MG/DL (70-100); SODIUM LEVEL 137 MEQ/L (136-145); TOTAL PROTEIN 6.8 GM/DL (6.4-8.2)
[2017-11-06] MEDS: MIRALAX *UNIT DOSE* 17GM PACKET PO (08:43)
[2017-11-06] MEDS: FERROUS SULFATE 325MG TAB PO (08:44)
[2017-11-06] MEDS: VITAMIN D 1,000 INTERNATIONAL UNITS TABLET PO (08:44)
[2017-11-06] MEDS: HumaLOG INSULIN (NovoLOG) PER UNIT SC ×2 (08:44→12:32)
[2017-11-06] MEDS: ASCORBIC ACID 500 MG TAB PO (08:44)
[2017-11-06] MEDS: DULoxetine 20 MG CAP (CYMBALTA) PO (08:44)
[2017-11-06] MEDS: GABAPENTIN 100 MG CAP PO (08:44)
[2017-11-06] MEDS: SENOKOT S TAB PO (08:44)
[2017-11-06] MEDS: CARVedilol 12.5 MG TAB PO (08:45)
[2017-11-06] MEDS: CitaloPRAM (CeleXA) 10 MG TABLET PO (08:46)
[2017-11-06] MEDS: CAPSAICIN 0.025% CR 60 GM TOP ×2 (08:46→12:32)
[2017-11-06] MEDS: predniSONE 20 MG TAB PO (08:46)
[2017-11-06 12:18] LABS: BEDSIDE GLUCOSE 312 MG/DL (83-110)
== END 2017-11-06 13:40 | disposition home or self-care (01) | DRG 292 ==
LOC: M ED 08:33 → M ED INP 14:10 → M PCU 18:33
DX: I50.23 Acute on chronic systolic (congestive) heart failure (principal); E87.1 Hypo-osmolality and hyponatremia; N17.9 Acute kidney failure, unspecified; I34.0 Nonrheumatic mitral (valve) insufficiency; N18.3 Chronic kidney disease, stage 3 (moderate); I27.20 Pulmonary hypertension, unspecified; K21.9 Gastro-esophageal reflux disease without esophagitis; N40.1 Benign prostatic hyperplasia with lower urinary tract symptoms; E03.9 Hypothyroidism, unspecified; Z66 Do not resuscitate; K59.00 Constipation, unspecified; F32.9 Major depressive disorder, single episode, unspecified; G62.9 Polyneuropathy, unspecified; R33.9 Retention of urine, unspecified; F41.9 Anxiety disorder, unspecified; Z96.642 Presence of left artificial hip joint; Z95.0 Presence of cardiac pacemaker; Z95.1 Presence of aortocoronary bypass graft; Z79.82 Long term (current) use of aspirin; Z79.899 Other long term (current) drug therapy

== ENCOUNTER 2018-06-08 01:21 | Emergency (ER) | payer MEDICARE, OTHER | END 2018-06-08 05:39 | disposition home or self-care (01) | LOC: M ED 01:21 | DX: F41.9 Anxiety disorder, unspecified (principal); I51.9 Heart disease, unspecified; J44.9 Chronic obstructive pulmonary disease, unspecified; K21.9 Gastro-esophageal reflux disease without esophagitis; D50.9 Iron deficiency anemia, unspecified; Z95.1 Presence of aortocoronary bypass graft; Z79.82 Long term (current) use of aspirin; Z79.899 Other long term (current) drug therapy | CPT/HCPCS: 99284 ==

== ENCOUNTER 2018-06-14 10:47 | Inpatient (IN) | payer MEDICARE, OTHER ==
[2018-06-14 11:19] LABS: BASO % 0.5 % (0.0-1.0); EOS # 0.1 10^3/uL (0.0-0.50); EOS % 1.3 % (0.0-3.0); HEMATOCRIT 35.7 % (42.0-52.0); HEMOGLOBIN 10.9 g/dl (13.5-17.5); IMMATURE GRANULOCYTE % 0.2 % (0-3.0); LYMPH # 1.6 10^3/uL (1.5-4.5); LYMPH % 18.6 % (24.0-44.0); MEAN CORPUSCULAR HEMOGLOBIN 29.1 pg (27.0-33.0); MEAN CORPUSCULAR HGB CONC 30.5 g/dl (32.0-36.5); MEAN CORPUSCULAR VOLUME 95.5 fl (80.0-96.0); MONO # 0.6 10^3/uL (0.0-0.8); MONO % 7.4 % (0.0-5.0); NEUTROPHILS # 6.1 10^3/uL (1.8-7.7); PLATELET COUNT, AUTOMATED 264 10^3/uL (150-450); RED BLOOD COUNT 3.74 10^6/uL (4.30-6.10); RED CELL DISTRIBUTION WIDTH 17.1 % (11.5-14.5); WHITE BLOOD COUNT 8.4 10^3/uL (4.0-10.0)
[2018-06-14 12:03] LABS: LACTIC ACID SEPSIS PROTOCOL 1.1 MMOL/L (0.4-2.0)
[2018-06-14 12:13] LABS: ACETAMINOPHEN LEVEL < 2.0 UG/ML (10.0-30.0); ALBUMIN 3.7 GM/DL (3.2-5.2); ALBUMIN/GLOBULIN RATIO 1.06 (1.00-1.93); ALKALINE PHOSPHATASE 228 U/L (45-117); ALT/SGPT 24 U/L (12-78); ANION GAP 17 MEQ/L (8-16); AST/SGOT 40 U/L (7-37); BILIRUBIN,DIRECT 0.9 MG/DL (0.0-0.2); BILIRUBIN,TOTAL 1.6 MG/DL (0.2-1.0); BLOOD UREA NITROGEN 79 MG/DL (7-18); C REACTIVE PROTEIN QUANTITATIV 3.47 MG/DL (0.00-0.30); CALCIUM LEVEL 8.8 MG/DL (8.8-10.2); CARBON DIOXIDE LEVEL 21 MEQ/L (21-32); CHLORIDE LEVEL 98 MEQ/L (98-107); CPK CREATINE PHOSPHOKINASE 231 U/L (39-308); CREATININE FOR GFR 3.51 MG/DL (0.70-1.30); ETHYL ALCOHOL (ETHANOL) < 0.003 % (0.000-0.010); GLOMERULAR FILTRATION RATE 18.3 (>42); GLUCOSE, FASTING 51 MG/DL (70-100); MB/CK RELATIVE INDEX 8.92 (< OR =4); SALICYLATE LEVEL < 1.7 MG/DL (5.0-30.0); SODIUM LEVEL 136 MEQ/L (136-145); TOTAL PROTEIN 7.2 GM/DL (6.4-8.2); TROPONIN I < 0.02 NG/ML (< 0.10)
[2018-06-14 12:23] LABS: KETONE, URINE AUTO RFX TRACE mg/dL (NEGATIVE); LEUKOCYTE ESTERASE UR AUTO RFX NEGATIVE (NEGATIVE); NITRITE, URINE AUTO RFX NEGATIVE (NEGATIVE); RBC, URINE AUTO RFX 3 /HPF (0-3); SPECIFIC GRAVITY UR AUTO RFX 1.009 (1.002-1.035); SQUAM EPITHELIAL CELL UR AURFX 0 /HPF (0-6); WBC, URINE AUTO RFX 0 /HPF (0-3)
[2018-06-14 12:27] LABS: ERYTHROCYTE SEDIMENTATION RATE 23 mm/hr (0-20)
[2018-06-14 12:51] LABS: AMPHETAMINES LEVEL URINE NEGATIVE (NEGATIVE); BARBITURATES URINE NEGATIVE (NEGATIVE); BENZODIAZEPINES URINE NEGATIVE (NEGATIVE); CANNABINOIDS URINE NEGATIVE (NEGATIVE); COCAINE METABOLITE URINE NEGATIVE (NEGATIVE); METHADONE URINE NEGATIVE (NEGATIVE); OPIATES URINE NEGATIVE (NEGATIVE); PHENCYCLIDINE URINE NEGATIVE (NEGATIVE)
[2018-06-14] MEDS ORDERED: DEXTROSE 50% 50 ML SYRINGE As Ordered (13:15)
[2018-06-14] MEDS: DEXTROSE 50% 50 ML SYRINGE IV (13:19)
[2018-06-14] MEDS: cefTRIAXone SOD 1 GM in D5W MINI-BAG PLUS 50 ML IV (13:39)
[2018-06-14] MEDS: NS 1,000 ML IV (13:40)
[2018-06-14 14:20] LABS: BEDSIDE GLUCOSE 145 MG/DL (83-110)
[2018-06-14] MEDS: AZITHROMYCIN INJ 500 MG, VIAL MATE ADAPTER 1 EACH in D5W 250 ML IV (14:27)
[2018-06-14 14:44] LABS: DIGOXIN LEVEL 0.3 NG/ML (0.5-2.0)
[2018-06-14] MEDS: D5W/0.45% SODIUM CHLORIDE 1,000 ML IV (15:39)
[2018-06-14 16:47] LABS: FREE T4 1.25 NG/DL (0.76-1.46)
[2018-06-14] MEDS: GABAPENTIN 100 MG CAP PO ×2 (16:48→22:47)
[2018-06-14] MEDS ORDERED: MIDAZOLAM INJ 2 MG/2 ML VIAL (J2250) As Ordered ×3 (17:22→17:25)
[2018-06-14] MEDS ORDERED: LIDOCAINE 1% MDV 20ML VIAL As Ordered (17:24)
[2018-06-14] MEDS ORDERED: FLUMAZENIL 0.5 MG/5 ML VIAL As Ordered (17:26)
[2018-06-14] MEDS: LIDOCAINE 1% MDV 20ML VIAL SC (17:30)
[2018-06-14] MEDS: MIDAZOLAM INJ 2 MG/2 ML VIAL (J2250) IV ×2 (17:35→17:39)
[2018-06-14] MEDS: FLUMAZENIL 0.5 MG/5 ML VIAL IV (17:55)
[2018-06-14 18:23] LABS: LDH LACTATE DEHYDROGENASE 237 U/L (87-241)
[2018-06-14 19:51] LABS: PH BODY FLUID 7.734 UNITS (NOT ESTABLISHED); SOURCE, BODY FLUID pH PLEURAL
[2018-06-14 19:59] LABS: AMYLASE, BODY FLUID 23 U/L (NOT ESTABLISHED); CHOLESTEROL, BODY FLUID < 50 MG/DL (NOT ESTABLISHED); LDH, BODY FLUID 90 U/L (NOT ESTABLISHED); SOURCE, BODY FLUID ALBUMIN PLEURAL; SOURCE, BODY FLUID AMYLASE PLEURAL; SOURCE, BODY FLUID CHOL PLEURAL; SOURCE, BODY FLUID GLUCOSE PLEURAL; SOURCE, BODY FLUID LDH PLEURAL; SOURCE, BODY FLUID TOT PROTEIN PLEURAL; SOURCE, BODY FLUID TRIG PLEURAL; TRIGLYCERIDE, BODY FLUID 36 MG/DL (NOT ESTABLISHED)
[2018-06-14 20:05] LABS: ESTIMATED AVERAGE GLUCOSE 131 MG/DL (60-110); HEMOGLOBIN A1c 6.2 %
[2018-06-14] MEDS: CARVedilol 12.5 MG TAB PO (21:00)
[2018-06-14] MEDS: CYCLOBENZAPRINE 10 MG TAB PO (22:46)
[2018-06-14] MEDS: CLOPIDOGREL 75 MG TAB PO (22:47)
[2018-06-14] MEDS: ASCORBIC ACID 500 MG TAB PO (22:47)
[2018-06-14] MEDS: ASPIRIN 81 MG ENTERIC TAB PO (22:47)
[2018-06-14] MEDS: FEBUXOSTAT 40 MG TABLET (ULORIC) PO (22:47)
[2018-06-14] MEDS: DULoxetine 20 MG CAP (CYMBALTA) PO (22:47)
[2018-06-14] MEDS: FINASTERIDE 5 MG TAB PO (22:47)
[2018-06-14] MEDS: HEPARIN SOD (PORCINE) 5000 UNITS/ML VIAL SQ (22:48)
[2018-06-14] MEDS: ACETAMINOPHEN TAB 650MG DOSE (2X325MG) PO (22:58)
[2018-06-14] MEDS: POTASSIUM CHLORIDE 10 MEQ SR TABLET PO (23:00)
[2018-06-14] MEDS: VITAMIN D 1,000 INTERNATIONAL UNITS TABLET PO (23:00)
[2018-06-14] MEDS: OMEPRAZOLE 20 MG CAP PO (23:00)
[2018-06-15] MEDS: D5W/0.45% SODIUM CHLORIDE 1,000 ML IV ×2 (02:26→13:46)
[2018-06-15] MEDS: ACETAMINOPHEN TAB 650MG DOSE (2X325MG) PO (04:33)
[2018-06-15] MEDS: LEVOTHYROXINE 25MCG TABLET (0.025MG) PO (05:20)
[2018-06-15 05:53] LABS: KETONE, URINE AUTO RFX NEGATIVE (NEGATIVE); LEUKOCYTE ESTERASE UR AUTO RFX NEGATIVE (NEGATIVE); NITRITE, URINE AUTO RFX NEGATIVE (NEGATIVE); RBC, URINE AUTO RFX 1 /HPF (0-3); SPECIFIC GRAVITY UR AUTO RFX 1.011 (1.002-1.035); SQUAM EPITHELIAL CELL UR AURFX 0 /HPF (0-6); WBC, URINE AUTO RFX 0 /HPF (0-3)
[2018-06-15 06:14] LABS: HEMATOCRIT 32.1 % (42.0-52.0); MEAN CORPUSCULAR HGB CONC 31.2 g/dl (32.0-36.5); PLATELET COUNT, AUTOMATED 234 10^3/uL (150-450); RED BLOOD COUNT 3.45 10^6/uL (4.30-6.10); WHITE BLOOD COUNT 7.3 10^3/uL (4.0-10.0)
[2018-06-15 06:41] LABS: ALBUMIN/GLOBULIN RATIO 0.88 (1.00-1.93); ALKALINE PHOSPHATASE 185 U/L (45-117); ALT/SGPT 17 U/L (12-78); ANION GAP 12 MEQ/L (8-16); AST/SGOT 27 U/L (7-37); BILIRUBIN,TOTAL 0.9 MG/DL (0.2-1.0); BLOOD UREA NITROGEN 75 MG/DL (7-18); CALCIUM LEVEL 8.3 MG/DL (8.8-10.2); CARBON DIOXIDE LEVEL 23 MEQ/L (21-32); CHLORIDE LEVEL 100 MEQ/L (98-107); CREATININE FOR GFR 3.41 MG/DL (0.70-1.30); GLOMERULAR FILTRATION RATE 18.9 (>42); GLUCOSE, FASTING 165 MG/DL (70-100); POTASSIUM SERUM 4.6 MEQ/L (3.5-5.1); SODIUM LEVEL 135 MEQ/L (136-145); TOTAL PROTEIN 6.4 GM/DL (6.4-8.2)
[2018-06-15] MEDS: GABAPENTIN 100 MG CAP PO ×3 (08:29→20:45)
[2018-06-15] MEDS: CYCLOBENZAPRINE 5MG TABLET PO (08:29)
[2018-06-15] MEDS: HEPARIN SOD (PORCINE) 5000 UNITS/ML VIAL SQ ×2 (08:29→20:45)
[2018-06-15] MEDS: MAGNESIUM OXIDE 400 MG TAB (MAG-OX) PO (08:29)
[2018-06-15] MEDS: FLUBLOK(EGG FREE)(QUAD)INFLUENZA VACC 0.5ML SYRINGE (90682)18YRS&OLDER IM (08:30)
[2018-06-15] MEDS: CARVedilol 12.5 MG TAB PO (09:00)
[2018-06-15 14:01] LABS: SODIUM,RANDOM URINE < 10 MEQ/L
[2018-06-15] MEDS: AZITHROMYCIN INJ 500 MG, VIAL MATE ADAPTER 1 EACH in D5W 250 ML IV (15:18)
[2018-06-15] MEDS: cefTRIAXone SOD 1 GM in D5W MINI-BAG PLUS 50 ML IV (16:44)
[2018-06-15 18:05] LABS: ANION GAP 11 MEQ/L (8-16); BLOOD UREA NITROGEN 69 MG/DL (7-18); CALCIUM LEVEL 8.6 MG/DL (8.8-10.2); CARBON DIOXIDE LEVEL 23 MEQ/L (21-32); CHLORIDE LEVEL 99 MEQ/L (98-107); CREATININE FOR GFR 3.49 MG/DL (0.70-1.30); GLOMERULAR FILTRATION RATE 18.4 (>42); GLUCOSE, FASTING 258 MG/DL (70-100); POTASSIUM SERUM 4.8 MEQ/L (3.5-5.1); SODIUM LEVEL 133 MEQ/L (136-145)
[2018-06-15] MEDS: NS 1,000 ML IV (18:13)
[2018-06-15] MEDS: FINASTERIDE 5 MG TAB PO (20:45)
[2018-06-15] MEDS: ASPIRIN 81 MG ENTERIC TAB PO (20:45)
[2018-06-15] MEDS: CLOPIDOGREL 75 MG TAB PO (20:45)
[2018-06-15] MEDS: OMEPRAZOLE 20 MG CAP PO (20:47)
[2018-06-15] MEDS: CYCLOBENZAPRINE 10 MG TAB PO (20:48)
[2018-06-15] MEDS: VITAMIN D 1,000 INTERNATIONAL UNITS TABLET PO (20:48)
[2018-06-15] MEDS: CARVedilol 6.25 MG TAB PO (20:49)
[2018-06-15] MEDS: FEBUXOSTAT 40 MG TABLET (ULORIC) PO (20:49)
[2018-06-15] MEDS: ASCORBIC ACID 500 MG TAB PO (20:49)
[2018-06-15] MEDS: DULoxetine 20 MG CAP (CYMBALTA) PO (20:49)
[2018-06-16] MEDS: FUROSEMIDE injection 250 MG in D5W 225 ML IV (00:58)
[2018-06-16] MEDS: ACETAMINOPHEN TAB 650MG DOSE (2X325MG) PO (03:54)
[2018-06-16 05:56] LABS: HEMOGLOBIN 10.8 g/dl (13.5-17.5); MEAN CORPUSCULAR HEMOGLOBIN 29.4 pg (27.0-33.0); MEAN CORPUSCULAR HGB CONC 31.8 g/dl (32.0-36.5); MEAN CORPUSCULAR VOLUME 92.6 fl (80.0-96.0); PLATELET COUNT, AUTOMATED 236 10^3/uL (150-450); RED BLOOD COUNT 3.67 10^6/uL (4.30-6.10); RED CELL DISTRIBUTION WIDTH 17.2 % (11.5-14.5); WHITE BLOOD COUNT 9.7 10^3/uL (4.0-10.0)
[2018-06-16] MEDS: LEVOTHYROXINE 25MCG TABLET (0.025MG) PO (06:03)
[2018-06-16 06:23] LABS: ALBUMIN/GLOBULIN RATIO 0.97 (1.00-1.93); ALKALINE PHOSPHATASE 165 U/L (45-117); ALT/SGPT 16 U/L (12-78); ANION GAP 8 MEQ/L (8-16); AST/SGOT 18 U/L (7-37); BILIRUBIN,TOTAL 0.6 MG/DL (0.2-1.0); BLOOD UREA NITROGEN 72 MG/DL (7-18); CALCIUM LEVEL 8.6 MG/DL (8.8-10.2); CARBON DIOXIDE LEVEL 25 MEQ/L (21-32); CHLORIDE LEVEL 103 MEQ/L (98-107); CREATININE FOR GFR 3.31 MG/DL (0.70-1.30); GLOMERULAR FILTRATION RATE 19.5 (>42); GLUCOSE, FASTING 177 MG/DL (70-100); POTASSIUM SERUM 4.7 MEQ/L (3.5-5.1); SODIUM LEVEL 136 MEQ/L (136-145); TOTAL PROTEIN 6.1 GM/DL (6.4-8.2)
[2018-06-16] MEDS: HEPARIN SOD (PORCINE) 5000 UNITS/ML VIAL SQ ×3 (09:00→20:42)
[2018-06-16] MEDS: MAGNESIUM OXIDE 400 MG TAB (MAG-OX) PO (10:02)
[2018-06-16] MEDS: CYCLOBENZAPRINE 5MG TABLET PO (10:02)
[2018-06-16] MEDS: MIDODRINE 5 MG TAB PO ×3 (10:02→17:41)
[2018-06-16] MEDS: GABAPENTIN 100 MG CAP PO ×3 (10:02→20:43)
[2018-06-16] MEDS: DOCUSATE SODIUM 100 MG CAP PO ×2 (11:30→20:43)
[2018-06-16] MEDS: ONDANSETRON 4MG/2ML VIAL (J2405) IV (12:22)
[2018-06-16] MEDS: LEVALBUTEROL 1.25 MG/0.5 ML CONCENTRATE NEB NEB ×2 (13:16→22:35)
[2018-06-16] MEDS: MOM 30ML SUSPENSION UDC PO (13:39)
[2018-06-16] MEDS: PERCOCET 5MG/325MG TAB PO ×2 (13:40→17:41)
[2018-06-16] MEDS: DOXYCYCLINE HYCLATE 100 MG in D5W MINI-BAG PLUS 100 ML IV ×2 (14:30→17:38)
[2018-06-16] MEDS: cefTRIAXone SOD 1 GM in D5W MINI-BAG PLUS 50 ML IV (17:41)
[2018-06-16] MEDS: ASCORBIC ACID 500 MG TAB PO (20:41)
[2018-06-16] MEDS: FEBUXOSTAT 40 MG TABLET (ULORIC) PO (20:41)
[2018-06-16] MEDS: OMEPRAZOLE 20 MG CAP PO (20:41)
[2018-06-16] MEDS: FINASTERIDE 5 MG TAB PO (20:42)
[2018-06-16] MEDS: VITAMIN D 1,000 INTERNATIONAL UNITS TABLET PO (20:42)
[2018-06-16] MEDS: ASPIRIN 81 MG ENTERIC TAB PO (20:42)
[2018-06-16] MEDS: DULoxetine 20 MG CAP (CYMBALTA) PO (20:42)
[2018-06-16] MEDS: CLOPIDOGREL 75 MG TAB PO (20:43)
[2018-06-16] MEDS: CYCLOBENZAPRINE 10 MG TAB PO (20:43)
[2018-06-17] MEDS: DOXYCYCLINE HYCLATE 100 MG in D5W MINI-BAG PLUS 100 ML IV ×2 (01:14→13:33)
[2018-06-17] MEDS: FUROSEMIDE injection 250 MG in D5W 225 ML IV (01:14)
[2018-06-17] MEDS: LEVALBUTEROL 1.25 MG/0.5 ML CONCENTRATE NEB NEB ×4 (02:14→20:00)
[2018-06-17] MEDS: PERCOCET 5MG/325MG TAB PO ×4 (04:11→17:42)
[2018-06-17] MEDS: LEVOTHYROXINE 25MCG TABLET (0.025MG) PO (05:42)
[2018-06-17 06:12] LABS: HEMATOCRIT 33.7 % (42.0-52.0); HEMOGLOBIN 10.4 g/dl (13.5-17.5); MEAN CORPUSCULAR HEMOGLOBIN 29.1 pg (27.0-33.0); MEAN CORPUSCULAR HGB CONC 30.9 g/dl (32.0-36.5); MEAN CORPUSCULAR VOLUME 94.4 fl (80.0-96.0); PLATELET COUNT, AUTOMATED 213 10^3/uL (150-450); RED BLOOD COUNT 3.57 10^6/uL (4.30-6.10); WHITE BLOOD COUNT 8.8 10^3/uL (4.0-10.0)
[2018-06-17 06:45] LABS: ALBUMIN 2.7 GM/DL (3.2-5.2); ALBUMIN/GLOBULIN RATIO 0.82 (1.00-1.93); ALKALINE PHOSPHATASE 167 U/L (45-117); ALT/SGPT 15 U/L (12-78); ANION GAP 9 MEQ/L (8-16); AST/SGOT 17 U/L (7-37); BILIRUBIN,TOTAL 0.7 MG/DL (0.2-1.0); BLOOD UREA NITROGEN 73 MG/DL (7-18); CARBON DIOXIDE LEVEL 25 MEQ/L (21-32); CHLORIDE LEVEL 100 MEQ/L (98-107); CREATININE FOR GFR 3.14 MG/DL (0.70-1.30); GLOMERULAR FILTRATION RATE 20.8 (>42); GLUCOSE, FASTING 156 MG/DL (70-100); MAGNESIUM LEVEL 2.2 MG/DL (1.8-2.4); POTASSIUM SERUM 4.6 MEQ/L (3.5-5.1); SODIUM LEVEL 134 MEQ/L (136-145)
[2018-06-17] MEDS: HEPARIN SOD (PORCINE) 5000 UNITS/ML VIAL SQ ×4 (09:00→21:29)
[2018-06-17] MEDS: CYCLOBENZAPRINE 5MG TABLET PO (09:40)
[2018-06-17] MEDS: DOCUSATE SODIUM 100 MG CAP PO ×2 (09:40→20:47)
[2018-06-17] MEDS: MOM 30ML SUSPENSION UDC PO (09:40)
[2018-06-17] MEDS: GABAPENTIN 100 MG CAP PO ×3 (09:41→20:47)
[2018-06-17] MEDS: MIDODRINE 5 MG TAB PO ×3 (09:41→17:41)
[2018-06-17] MEDS: MAGNESIUM OXIDE 400 MG TAB (MAG-OX) PO (09:41)
[2018-06-17] MEDS: GI COCKTAIL 50ML BTL(HYOSCYAMINE/MAALOX/LIDOCAINE VISCOUS)(1:3:1) PO (10:26)
[2018-06-17 11:22] LABS: CPK CREATINE PHOSPHOKINASE 35 U/L (39-308); MB/CK RELATIVE INDEX 8.86 (< OR =4)
[2018-06-17] MEDS: CYCLOBENZAPRINE 10 MG TAB PO (20:47)
[2018-06-17] MEDS: ASPIRIN 81 MG ENTERIC TAB PO (20:47)
[2018-06-17] MEDS: CLOPIDOGREL 75 MG TAB PO (20:47)
[2018-06-17] MEDS: DULoxetine 20 MG CAP (CYMBALTA) PO (20:47)
[2018-06-17] MEDS: FEBUXOSTAT 40 MG TABLET (ULORIC) PO (20:48)
[2018-06-17] MEDS: FINASTERIDE 5 MG TAB PO (20:48)
[2018-06-17] MEDS: OMEPRAZOLE 20 MG CAP PO (20:48)
[2018-06-17] MEDS: ASCORBIC ACID 500 MG TAB PO (20:48)
[2018-06-17] MEDS: VITAMIN D 1,000 INTERNATIONAL UNITS TABLET PO (20:49)
[2018-06-18] MEDS: FUROSEMIDE injection 250 MG in D5W 225 ML IV (00:28)
[2018-06-18] MEDS: LEVALBUTEROL 1.25 MG/0.5 ML CONCENTRATE NEB NEB ×4 (02:00→21:03)
[2018-06-18] MEDS: DOXYCYCLINE HYCLATE 100 MG in D5W MINI-BAG PLUS 100 ML IV ×2 (02:13→14:12)
[2018-06-18] MEDS: PERCOCET 5MG/325MG TAB PO ×2 (02:22→11:25)
[2018-06-18] MEDS: LEVOTHYROXINE 25MCG TABLET (0.025MG) PO (05:31)
[2018-06-18 06:01] LABS: HEMATOCRIT 33.9 % (42.0-52.0); HEMOGLOBIN 10.3 g/dl (13.5-17.5); MEAN CORPUSCULAR HEMOGLOBIN 29.1 pg (27.0-33.0); MEAN CORPUSCULAR HGB CONC 30.4 g/dl (32.0-36.5); MEAN CORPUSCULAR VOLUME 95.8 fl (80.0-96.0); PLATELET COUNT, AUTOMATED 213 10^3/uL (150-450); RED BLOOD COUNT 3.54 10^6/uL (4.30-6.10); WHITE BLOOD COUNT 10.2 10^3/uL (4.0-10.0)
[2018-06-18 06:26] LABS: ALBUMIN 2.6 GM/DL (3.2-5.2); ALBUMIN/GLOBULIN RATIO 0.76 (1.00-1.93); ALKALINE PHOSPHATASE 171 U/L (45-117); ALT/SGPT 16 U/L (12-78); ANION GAP 9 MEQ/L (8-16); AST/SGOT 15 U/L (7-37); BILIRUBIN,TOTAL 0.8 MG/DL (0.2-1.0); BLOOD UREA NITROGEN 70 MG/DL (7-18); CALCIUM LEVEL 8.1 MG/DL (8.8-10.2); CARBON DIOXIDE LEVEL 26 MEQ/L (21-32); CHLORIDE LEVEL 98 MEQ/L (98-107); CREATININE FOR GFR 2.89 MG/DL (0.70-1.30); GLOMERULAR FILTRATION RATE 22.8 (>42); GLUCOSE, FASTING 202 MG/DL (70-100); POTASSIUM SERUM 4.6 MEQ/L (3.5-5.1); SODIUM LEVEL 133 MEQ/L (136-145)
[2018-06-18] MEDS: MOM 30ML SUSPENSION UDC PO (11:24)
[2018-06-18] MEDS: HEPARIN SOD (PORCINE) 5000 UNITS/ML VIAL SQ ×2 (11:24→22:09)
[2018-06-18] MEDS: FUROSEMIDE 100 MG/10 ML VIAL (J1940) IV ×2 (11:24→18:32)
[2018-06-18] MEDS: DOCUSATE SODIUM 100 MG CAP PO ×2 (11:25→21:00)
[2018-06-18] MEDS: MIDODRINE 5 MG TAB PO ×3 (11:26→18:32)
[2018-06-18] MEDS: CYCLOBENZAPRINE 5MG TABLET PO (11:26)
[2018-06-18] MEDS: MAGNESIUM OXIDE 400 MG TAB (MAG-OX) PO (11:26)
[2018-06-18] MEDS: GABAPENTIN 100 MG CAP PO ×3 (11:26→22:08)
[2018-06-18] MEDS: BISACODYL 10 MG SUPP PR (18:31)
[2018-06-18] MEDS: ASPIRIN 81 MG ENTERIC TAB PO (22:08)
[2018-06-18] MEDS: CYCLOBENZAPRINE 10 MG TAB PO (22:08)
[2018-06-18] MEDS: CLOPIDOGREL 75 MG TAB PO (22:08)
[2018-06-18] MEDS: DULoxetine 20 MG CAP (CYMBALTA) PO (22:08)
[2018-06-18] MEDS: FEBUXOSTAT 40 MG TABLET (ULORIC) PO (22:09)
[2018-06-18] MEDS: ASCORBIC ACID 500 MG TAB PO (22:09)
[2018-06-18] MEDS: VITAMIN D 1,000 INTERNATIONAL UNITS TABLET PO (22:09)
[2018-06-18] MEDS: FINASTERIDE 5 MG TAB PO (22:09)
[2018-06-18] MEDS: OMEPRAZOLE 20 MG CAP PO (22:09)
[2018-06-19] MEDS: FUROSEMIDE 100 MG/10 ML VIAL (J1940) IV ×3 (00:37→17:25)
[2018-06-19] MEDS: DOXYCYCLINE HYCLATE 100 MG in D5W MINI-BAG PLUS 100 ML IV ×2 (01:43→13:37)
[2018-06-19] MEDS: LEVALBUTEROL 1.25 MG/0.5 ML CONCENTRATE NEB NEB ×4 (02:00→20:15)
[2018-06-19 05:10] LABS: HEMATOCRIT 33.5 % (42.0-52.0); HEMOGLOBIN 10.3 g/dl (13.5-17.5); MEAN CORPUSCULAR HEMOGLOBIN 29.3 pg (27.0-33.0); MEAN CORPUSCULAR HGB CONC 30.7 g/dl (32.0-36.5); MEAN CORPUSCULAR VOLUME 95.2 fl (80.0-96.0); PLATELET COUNT, AUTOMATED 196 10^3/uL (150-450); RED BLOOD COUNT 3.52 10^6/uL (4.30-6.10); RED CELL DISTRIBUTION WIDTH 16.8 % (11.5-14.5); WHITE BLOOD COUNT 8.8 10^3/uL (4.0-10.0)
[2018-06-19 05:35] LABS: ALBUMIN 2.4 GM/DL (3.2-5.2); ALBUMIN/GLOBULIN RATIO 0.71 (1.00-1.93); ALKALINE PHOSPHATASE 160 U/L (45-117); ALT/SGPT 15 U/L (12-78); ANION GAP 9 MEQ/L (8-16); AST/SGOT 13 U/L (7-37); BILIRUBIN,TOTAL 0.8 MG/DL (0.2-1.0); BLOOD UREA NITROGEN 70 MG/DL (7-18); CALCIUM LEVEL 8.2 MG/DL (8.8-10.2); CARBON DIOXIDE LEVEL 28 MEQ/L (21-32); CHLORIDE LEVEL 95 MEQ/L (98-107); CREATININE FOR GFR 2.53 MG/DL (0.70-1.30); GLOMERULAR FILTRATION RATE 26.6 (>42); GLUCOSE, FASTING 148 MG/DL (70-100); POTASSIUM SERUM 4.3 MEQ/L (3.5-5.1); SODIUM LEVEL 132 MEQ/L (136-145); TOTAL PROTEIN 5.8 GM/DL (6.4-8.2)
[2018-06-19] MEDS: LEVOTHYROXINE 25MCG TABLET (0.025MG) PO (06:07)
[2018-06-19] MEDS: DOCUSATE SODIUM 100 MG CAP PO ×2 (08:24→21:12)
[2018-06-19] MEDS: CYCLOBENZAPRINE 5MG TABLET PO (08:24)
[2018-06-19] MEDS: MAGNESIUM OXIDE 400 MG TAB (MAG-OX) PO (08:24)
[2018-06-19] MEDS: MIDODRINE 5 MG TAB PO ×3 (08:24→15:56)
[2018-06-19] MEDS: HEPARIN SOD (PORCINE) 5000 UNITS/ML VIAL SQ ×2 (08:25→21:14)
[2018-06-19] MEDS: MOM 30ML SUSPENSION UDC PO (08:25)
[2018-06-19] MEDS: GABAPENTIN 100 MG CAP PO ×3 (08:25→21:13)
[2018-06-19] MEDS ORDERED: SLF 3 ML SYR IV (10:15)
[2018-06-19] MEDS: SLF 3 ML SYR IV ×2 (13:37→21:20)
[2018-06-19] MEDS: CHLOROTHIAZIDE 500 MG VIAL (J1205) IV (14:30)
[2018-06-19] MEDS: FEBUXOSTAT 40 MG TABLET (ULORIC) PO (21:13)
[2018-06-19] MEDS: DULoxetine 20 MG CAP (CYMBALTA) PO (21:13)
[2018-06-19] MEDS: CYCLOBENZAPRINE 10 MG TAB PO (21:13)
[2018-06-19] MEDS: CLOPIDOGREL 75 MG TAB PO (21:13)
[2018-06-19] MEDS: FINASTERIDE 5 MG TAB PO (21:13)
[2018-06-19] MEDS: ASPIRIN 81 MG ENTERIC TAB PO (21:13)
[2018-06-19] MEDS: OMEPRAZOLE 20 MG CAP PO (21:13)
[2018-06-19] MEDS: VITAMIN D 1,000 INTERNATIONAL UNITS TABLET PO (21:14)
[2018-06-19] MEDS: ASCORBIC ACID 500 MG TAB PO (21:14)
[2018-06-20] MEDS: FUROSEMIDE 100 MG/10 ML VIAL (J1940) IV ×4 (00:33→18:00)
[2018-06-20] MEDS: LEVALBUTEROL 1.25 MG/0.5 ML CONCENTRATE NEB NEB ×4 (01:11→20:10)
[2018-06-20 01:40] LABS: BEDSIDE GLUCOSE 188 MG/DL (83-110)
[2018-06-20] MEDS: DOXYCYCLINE HYCLATE 100 MG in D5W MINI-BAG PLUS 100 ML IV ×2 (02:55→14:12)
[2018-06-20 05:27] LABS: HEMATOCRIT 30.6 % (42.0-52.0); HEMOGLOBIN 9.5 g/dl (13.5-17.5); MEAN CORPUSCULAR HEMOGLOBIN 28.9 pg (27.0-33.0); PLATELET COUNT, AUTOMATED 209 10^3/uL (150-450); RED BLOOD COUNT 3.29 10^6/uL (4.30-6.10); RED CELL DISTRIBUTION WIDTH 16.3 % (11.5-14.5); WHITE BLOOD COUNT 8.6 10^3/uL (4.0-10.0)
[2018-06-20 05:56] LABS: ALBUMIN 2.4 GM/DL (3.2-5.2); ALBUMIN/GLOBULIN RATIO 0.69 (1.00-1.93); ALKALINE PHOSPHATASE 150 U/L (45-117); ALT/SGPT 12 U/L (12-78); ANION GAP 9 MEQ/L (8-16); AST/SGOT 13 U/L (7-37); BILIRUBIN,TOTAL 0.7 MG/DL (0.2-1.0); BLOOD UREA NITROGEN 74 MG/DL (7-18); CALCIUM LEVEL 8.8 MG/DL (8.8-10.2); CARBON DIOXIDE LEVEL 32 MEQ/L (21-32); CHLORIDE LEVEL 91 MEQ/L (98-107); CREATININE FOR GFR 2.33 MG/DL (0.70-1.30); GLOMERULAR FILTRATION RATE 29.3 (>42); GLUCOSE, FASTING 154 MG/DL (70-100); MAGNESIUM LEVEL 2.3 MG/DL (1.8-2.4); POTASSIUM SERUM 3.8 MEQ/L (3.5-5.1); SODIUM LEVEL 132 MEQ/L (136-145); TOTAL PROTEIN 5.9 GM/DL (6.4-8.2)
[2018-06-20] MEDS: SLF 3 ML SYR IV ×3 (06:00→21:37)
[2018-06-20] MEDS: LEVOTHYROXINE 25MCG TABLET (0.025MG) PO (06:16)
[2018-06-20] MEDS: DOCUSATE SODIUM 100 MG CAP PO ×2 (09:00→21:39)
[2018-06-20] MEDS: GABAPENTIN 100 MG CAP PO ×3 (09:07→21:38)
[2018-06-20] MEDS: PERCOCET 5MG/325MG TAB PO (09:07)
[2018-06-20] MEDS: HEPARIN SOD (PORCINE) 5000 UNITS/ML VIAL SQ ×2 (09:07→21:37)
[2018-06-20] MEDS: MOM 30ML SUSPENSION UDC PO (09:07)
[2018-06-20] MEDS: MAGNESIUM OXIDE 400 MG TAB (MAG-OX) PO (09:08)
[2018-06-20] MEDS: CYCLOBENZAPRINE 5MG TABLET PO (09:08)
[2018-06-20] MEDS: MIDODRINE 5 MG TAB PO (09:08)
[2018-06-20] MEDS: POTASSIUM CHLORIDE 10 MEQ SR TABLET PO (12:23)
[2018-06-20] MEDS: MIDODRINE 2.5 MG TAB PO ×2 (12:23→16:00)
[2018-06-20] MEDS: metOLazone 5 MG TAB PO (12:24)
[2018-06-20] MEDS: SPIRONOLACTONE 25 MG TAB PO (12:30)
[2018-06-20] MEDS: DULoxetine 20 MG CAP (CYMBALTA) PO (21:38)
[2018-06-20] MEDS: ASPIRIN 81 MG ENTERIC TAB PO (21:38)
[2018-06-20] MEDS: FINASTERIDE 5 MG TAB PO (21:38)
[2018-06-20] MEDS: OMEPRAZOLE 20 MG CAP PO (21:38)
[2018-06-20] MEDS: CLOPIDOGREL 75 MG TAB PO (21:38)
[2018-06-20] MEDS: FEBUXOSTAT 40 MG TABLET (ULORIC) PO (21:38)
[2018-06-20] MEDS: CYCLOBENZAPRINE 10 MG TAB PO (21:38)
[2018-06-20] MEDS: ASCORBIC ACID 500 MG TAB PO (21:39)
[2018-06-20] MEDS: VITAMIN D 1,000 INTERNATIONAL UNITS TABLET PO (21:39)
[2018-06-21] MEDS: DOXYCYCLINE HYCLATE 100 MG in D5W MINI-BAG PLUS 100 ML IV ×2 (01:45→13:35)
[2018-06-21] MEDS: LEVALBUTEROL 1.25 MG/0.5 ML CONCENTRATE NEB NEB ×4 (02:00→20:52)
[2018-06-21 05:26] LABS: HEMATOCRIT 31.7 % (42.0-52.0); HEMOGLOBIN 9.9 g/dl (13.5-17.5); MEAN CORPUSCULAR HEMOGLOBIN 28.7 pg (27.0-33.0); MEAN CORPUSCULAR HGB CONC 31.2 g/dl (32.0-36.5); MEAN CORPUSCULAR VOLUME 91.9 fl (80.0-96.0); PLATELET COUNT, AUTOMATED 225 10^3/uL (150-450); RED BLOOD COUNT 3.45 10^6/uL (4.30-6.10); RED CELL DISTRIBUTION WIDTH 16.3 % (11.5-14.5); WHITE BLOOD COUNT 8.8 10^3/uL (4.0-10.0)
[2018-06-21 05:49] LABS: ALBUMIN 2.3 GM/DL (3.2-5.2); ALBUMIN/GLOBULIN RATIO 0.64 (1.00-1.93); ALKALINE PHOSPHATASE 173 U/L (45-117); ALT/SGPT 13 U/L (12-78); ANION GAP 5 MEQ/L (8-16); AST/SGOT 14 U/L (7-37); BILIRUBIN,TOTAL 0.7 MG/DL (0.2-1.0); BLOOD UREA NITROGEN 81 MG/DL (7-18); CALCIUM LEVEL 8.7 MG/DL (8.8-10.2); CARBON DIOXIDE LEVEL 34 MEQ/L (21-32); CHLORIDE LEVEL 91 MEQ/L (98-107); CREATININE FOR GFR 2.37 MG/DL (0.70-1.30); GLOMERULAR FILTRATION RATE 28.7 (>42); GLUCOSE, FASTING 158 MG/DL (70-100); MAGNESIUM LEVEL 2.5 MG/DL (1.8-2.4); POTASSIUM SERUM 4.4 MEQ/L (3.5-5.1); SODIUM LEVEL 130 MEQ/L (136-145); TOTAL PROTEIN 5.9 GM/DL (6.4-8.2)
[2018-06-21] MEDS: LEVOTHYROXINE 25MCG TABLET (0.025MG) PO (06:31)
[2018-06-21] MEDS: SLF 3 ML SYR IV ×3 (06:32→20:41)
[2018-06-21] MEDS: FUROSEMIDE 100 MG/10 ML VIAL (J1940) IV ×4 (06:32→17:44)
[2018-06-21] MEDS: MIDODRINE 2.5 MG TAB PO (08:00)
[2018-06-21] MEDS: GABAPENTIN 100 MG CAP PO ×3 (08:19→20:42)
[2018-06-21] MEDS: HEPARIN SOD (PORCINE) 5000 UNITS/ML VIAL SQ ×2 (08:20→20:40)
[2018-06-21] MEDS: MOM 30ML SUSPENSION UDC PO (08:20)
[2018-06-21] MEDS: MAGNESIUM OXIDE 400 MG TAB (MAG-OX) PO (08:20)
[2018-06-21] MEDS: CYCLOBENZAPRINE 5MG TABLET PO (08:20)
[2018-06-21] MEDS: SPIRONOLACTONE 25 MG TAB PO (08:20)
[2018-06-21] MEDS: DOCUSATE SODIUM 100 MG CAP PO ×2 (08:21→20:42)
[2018-06-21] MEDS: metOLazone 5 MG TAB PO (11:47)
[2018-06-21] MEDS: PERCOCET 5MG/325MG TAB PO (11:47)
[2018-06-21] MEDS: OMEPRAZOLE 20 MG CAP PO (20:41)
[2018-06-21] MEDS: FINASTERIDE 5 MG TAB PO (20:41)
[2018-06-21] MEDS: CYCLOBENZAPRINE 10 MG TAB PO (20:41)
[2018-06-21] MEDS: FEBUXOSTAT 40 MG TABLET (ULORIC) PO (20:41)
[2018-06-21] MEDS: ASCORBIC ACID 500 MG TAB PO (20:41)
[2018-06-21] MEDS: ASPIRIN 81 MG ENTERIC TAB PO (20:42)
[2018-06-21] MEDS: CLOPIDOGREL 75 MG TAB PO (20:42)
[2018-06-21] MEDS: VITAMIN D 1,000 INTERNATIONAL UNITS TABLET PO (20:42)
[2018-06-21] MEDS: DULoxetine 20 MG CAP (CYMBALTA) PO (20:42)
[2018-06-22] MEDS: FUROSEMIDE 100 MG/10 ML VIAL (J1940) IV ×5 (00:26→23:44)
[2018-06-22] MEDS: LEVALBUTEROL 1.25 MG/0.5 ML CONCENTRATE NEB NEB ×4 (02:00→20:00)
[2018-06-22] MEDS: DOXYCYCLINE HYCLATE 100 MG in D5W MINI-BAG PLUS 100 ML IV ×2 (02:13→13:32)
[2018-06-22] MEDS: PERCOCET 5MG/325MG TAB PO ×2 (05:57→20:31)
[2018-06-22] MEDS: LEVOTHYROXINE 25MCG TABLET (0.025MG) PO (05:58)
[2018-06-22] MEDS: SLF 3 ML SYR IV ×3 (05:59→21:05)
[2018-06-22 06:42] LABS: MAGNESIUM LEVEL 2.7 MG/DL (1.8-2.4)
[2018-06-22 07:36] LABS: HEMATOCRIT 31.8 % (42.0-52.0); MEAN CORPUSCULAR HEMOGLOBIN 29.6 pg (27.0-33.0); MEAN CORPUSCULAR HGB CONC 31.4 g/dl (32.0-36.5); MEAN CORPUSCULAR VOLUME 94.1 fl (80.0-96.0); PLATELET COUNT, AUTOMATED 245 10^3/uL (150-450); RED BLOOD COUNT 3.38 10^6/uL (4.30-6.10); RED CELL DISTRIBUTION WIDTH 16.3 % (11.5-14.5); WHITE BLOOD COUNT 8.8 10^3/uL (4.0-10.0)
[2018-06-22 07:38] LABS: ANION GAP 10 MEQ/L (8-16); BLOOD UREA NITROGEN 81 MG/DL (7-18); CALCIUM LEVEL 8.8 MG/DL (8.8-10.2); CARBON DIOXIDE LEVEL 33 MEQ/L (21-32); CHLORIDE LEVEL 89 MEQ/L (98-107); CREATININE FOR GFR 2.37 MG/DL (0.70-1.30); GLOMERULAR FILTRATION RATE 28.7 (>42); GLUCOSE, FASTING 182 MG/DL (70-100); POTASSIUM SERUM 3.9 MEQ/L (3.5-5.1); SODIUM LEVEL 132 MEQ/L (136-145)
[2018-06-22] MEDS: MAGNESIUM OXIDE 400 MG TAB (MAG-OX) PO (09:00)
[2018-06-22] MEDS: DOCUSATE SODIUM 100 MG CAP PO ×2 (09:00→20:29)
[2018-06-22] MEDS: MOM 30ML SUSPENSION UDC PO (09:00)
[2018-06-22] MEDS: GABAPENTIN 100 MG CAP PO ×3 (09:04→20:30)
[2018-06-22] MEDS: SPIRONOLACTONE 25 MG TAB PO (09:05)
[2018-06-22] MEDS: CYCLOBENZAPRINE 5MG TABLET PO (09:06)
[2018-06-22] MEDS: HEPARIN SOD (PORCINE) 5000 UNITS/ML VIAL SQ ×2 (09:06→20:29)
[2018-06-22] MEDS: POTASSIUM CHLORIDE 10 MEQ SR TABLET PO (13:31)
[2018-06-22] MEDS: metOLazone 5 MG TAB PO (13:31)
[2018-06-22] MEDS: MIDODRINE 2.5 MG TAB PO ×2 (13:31→17:14)
[2018-06-22] MEDS: FEBUXOSTAT 40 MG TABLET (ULORIC) PO (20:29)
[2018-06-22] MEDS: CLOPIDOGREL 75 MG TAB PO (20:30)
[2018-06-22] MEDS: ASPIRIN 81 MG ENTERIC TAB PO (20:30)
[2018-06-22] MEDS: CYCLOBENZAPRINE 10 MG TAB PO (20:30)
[2018-06-22] MEDS: OMEPRAZOLE 20 MG CAP PO (20:30)
[2018-06-22] MEDS: VITAMIN D 1,000 INTERNATIONAL UNITS TABLET PO (20:30)
[2018-06-22] MEDS: DULoxetine 20 MG CAP (CYMBALTA) PO (20:30)
[2018-06-22] MEDS: FINASTERIDE 5 MG TAB PO (20:30)
[2018-06-23] MEDS: PERCOCET 5MG/325MG TAB PO ×4 (00:52→20:42)
[2018-06-23] MEDS: LEVALBUTEROL 1.25 MG/0.5 ML CONCENTRATE NEB NEB ×4 (02:00→20:48)
[2018-06-23] MEDS: DOXYCYCLINE HYCLATE 100 MG in D5W MINI-BAG PLUS 100 ML IV ×2 (02:09→14:30)
[2018-06-23] MEDS: LEVOTHYROXINE 25MCG TABLET (0.025MG) PO (05:16)
[2018-06-23] MEDS: SLF 3 ML SYR IV ×3 (05:17→21:34)
[2018-06-23] MEDS: FUROSEMIDE 100 MG/10 ML VIAL (J1940) IV ×3 (05:17→18:03)
[2018-06-23 05:58] LABS: HEMATOCRIT 32.8 % (42.0-52.0); HEMOGLOBIN 10.3 g/dl (13.5-17.5); MEAN CORPUSCULAR HEMOGLOBIN 29.1 pg (27.0-33.0); MEAN CORPUSCULAR HGB CONC 31.4 g/dl (32.0-36.5); MEAN CORPUSCULAR VOLUME 92.7 fl (80.0-96.0); PLATELET COUNT, AUTOMATED 259 10^3/uL (150-450); RED BLOOD COUNT 3.54 10^6/uL (4.30-6.10); WHITE BLOOD COUNT 8.2 10^3/uL (4.0-10.0)
[2018-06-23 06:24] LABS: ANION GAP 9 MEQ/L (8-16); BLOOD UREA NITROGEN 81 MG/DL (7-18); CALCIUM LEVEL 9.1 MG/DL (8.8-10.2); CARBON DIOXIDE LEVEL 33 MEQ/L (21-32); CHLORIDE LEVEL 88 MEQ/L (98-107); CREATININE FOR GFR 2.12 MG/DL (0.70-1.30); GLOMERULAR FILTRATION RATE 32.7 (>42); GLUCOSE, FASTING 139 MG/DL (70-100); POTASSIUM SERUM 3.5 MEQ/L (3.5-5.1); SODIUM LEVEL 130 MEQ/L (136-145)
[2018-06-23] MEDS: MIDODRINE 2.5 MG TAB PO ×3 (08:33→16:08)
[2018-06-23] MEDS: HEPARIN SOD (PORCINE) 5000 UNITS/ML VIAL SQ ×2 (08:33→20:42)
[2018-06-23] MEDS: GABAPENTIN 100 MG CAP PO ×3 (08:33→20:41)
[2018-06-23] MEDS: SPIRONOLACTONE 25 MG TAB PO (08:33)
[2018-06-23] MEDS: MOM 30ML SUSPENSION UDC PO (08:34)
[2018-06-23] MEDS: CYCLOBENZAPRINE 5MG TABLET PO (08:34)
[2018-06-23] MEDS: DOCUSATE SODIUM 100 MG CAP PO ×2 (08:34→20:43)
[2018-06-23] MEDS: POTASSIUM CHLORIDE 10 MEQ SR TABLET PO (09:55)
[2018-06-23] MEDS: TOLVAPTAN 15 MG TAB (SAMSCA) PO (09:55)
[2018-06-23] MEDS: CLOPIDOGREL 75 MG TAB PO (20:40)
[2018-06-23] MEDS: VITAMIN D 1,000 INTERNATIONAL UNITS TABLET PO (20:40)
[2018-06-23] MEDS: CYCLOBENZAPRINE 10 MG TAB PO (20:41)
[2018-06-23] MEDS: FINASTERIDE 5 MG TAB PO (20:41)
[2018-06-23] MEDS: DULoxetine 20 MG CAP (CYMBALTA) PO (20:41)
[2018-06-23] MEDS: OMEPRAZOLE 20 MG CAP PO (20:41)
[2018-06-23] MEDS: FEBUXOSTAT 40 MG TABLET (ULORIC) PO (20:41)
[2018-06-23] MEDS: ASPIRIN 81 MG ENTERIC TAB PO (20:41)
[2018-06-24] MEDS: LEVALBUTEROL 1.25 MG/0.5 ML CONCENTRATE NEB NEB ×4 (01:51→20:31)
[2018-06-24] MEDS: FUROSEMIDE 100 MG/10 ML VIAL (J1940) IV ×4 (05:42→18:14)
[2018-06-24] MEDS: LEVOTHYROXINE 25MCG TABLET (0.025MG) PO (05:42)
[2018-06-24] MEDS: PERCOCET 5MG/325MG TAB PO ×3 (05:43→20:52)
[2018-06-24] MEDS: SLF 3 ML SYR IV ×3 (05:45→21:56)
[2018-06-24 05:54] LABS: HEMATOCRIT 32.7 % (42.0-52.0); HEMOGLOBIN 10.3 g/dl (13.5-17.5); MEAN CORPUSCULAR HEMOGLOBIN 29.2 pg (27.0-33.0); MEAN CORPUSCULAR HGB CONC 31.5 g/dl (32.0-36.5); MEAN CORPUSCULAR VOLUME 92.6 fl (80.0-96.0); PLATELET COUNT, AUTOMATED 276 10^3/uL (150-450); RED BLOOD COUNT 3.53 10^6/uL (4.30-6.10); RED CELL DISTRIBUTION WIDTH 16.3 % (11.5-14.5); WHITE BLOOD COUNT 8.6 10^3/uL (4.0-10.0)
[2018-06-24 06:15] LABS: ANION GAP 11 MEQ/L (8-16); BLOOD UREA NITROGEN 84 MG/DL (7-18); CARBON DIOXIDE LEVEL 35 MEQ/L (21-32); CHLORIDE LEVEL 89 MEQ/L (98-107); CREATININE FOR GFR 2.25 MG/DL (0.70-1.30); GLOMERULAR FILTRATION RATE 30.5 (>42); GLUCOSE, FASTING 144 MG/DL (70-100); MAGNESIUM LEVEL 2.6 MG/DL (1.8-2.4); POTASSIUM SERUM 4.2 MEQ/L (3.5-5.1); SODIUM LEVEL 135 MEQ/L (136-145)
[2018-06-24] MEDS: MIDODRINE 2.5 MG TAB PO ×3 (08:33→16:43)
[2018-06-24] MEDS: GABAPENTIN 100 MG CAP PO ×3 (08:34→20:51)
[2018-06-24] MEDS: HEPARIN SOD (PORCINE) 5000 UNITS/ML VIAL SQ ×2 (08:34→20:53)
[2018-06-24] MEDS: SPIRONOLACTONE 25 MG TAB PO (08:34)
[2018-06-24] MEDS: DOCUSATE SODIUM 100 MG CAP PO ×2 (08:34→20:51)
[2018-06-24] MEDS: CYCLOBENZAPRINE 5MG TABLET PO (08:34)
[2018-06-24] MEDS: MOM 30ML SUSPENSION UDC PO (08:35)
[2018-06-24] MEDS: POTASSIUM CHLORIDE 10 MEQ SR TABLET PO (08:35)
[2018-06-24] MEDS: TOLVAPTAN 15 MG TAB (SAMSCA) PO (12:23)
[2018-06-24] MEDS: DULoxetine 20 MG CAP (CYMBALTA) PO (20:51)
[2018-06-24] MEDS: OMEPRAZOLE 20 MG CAP PO (20:51)
[2018-06-24] MEDS: CYCLOBENZAPRINE 10 MG TAB PO (20:51)
[2018-06-24] MEDS: CLOPIDOGREL 75 MG TAB PO (20:51)
[2018-06-24] MEDS: FEBUXOSTAT 40 MG TABLET (ULORIC) PO (20:51)
[2018-06-24] MEDS: VITAMIN D 1,000 INTERNATIONAL UNITS TABLET PO (20:51)
[2018-06-24] MEDS: FINASTERIDE 5 MG TAB PO (20:51)
[2018-06-24] MEDS: ASPIRIN 81 MG ENTERIC TAB PO (20:52)
[2018-06-25] MEDS: FUROSEMIDE 100 MG/10 ML VIAL (J1940) IV ×2 (00:22→05:51)
[2018-06-25] MEDS: PERCOCET 5MG/325MG TAB PO (00:42)
[2018-06-25] MEDS: LEVALBUTEROL 1.25 MG/0.5 ML CONCENTRATE NEB NEB ×4 (02:00→20:04)
[2018-06-25] MEDS: LEVOTHYROXINE 25MCG TABLET (0.025MG) PO (05:51)
[2018-06-25] MEDS: SLF 3 ML SYR IV ×3 (05:52→21:42)
[2018-06-25 07:03] LABS: HEMATOCRIT 35.6 % (42.0-52.0); HEMOGLOBIN 11.1 g/dl (13.5-17.5); MEAN CORPUSCULAR HEMOGLOBIN 28.4 pg (27.0-33.0); MEAN CORPUSCULAR HGB CONC 31.2 g/dl (32.0-36.5); PLATELET COUNT, AUTOMATED 323 10^3/uL (150-450); RED BLOOD COUNT 3.91 10^6/uL (4.30-6.10); RED CELL DISTRIBUTION WIDTH 16.5 % (11.5-14.5); WHITE BLOOD COUNT 9.1 10^3/uL (4.0-10.0)
[2018-06-25 07:18] LABS: ANION GAP 8 MEQ/L (8-16); BLOOD UREA NITROGEN 83 MG/DL (7-18); CALCIUM LEVEL 9.5 MG/DL (8.8-10.2); CARBON DIOXIDE LEVEL 41 MEQ/L (21-32); CHLORIDE LEVEL 86 MEQ/L (98-107); CREATININE FOR GFR 2.41 MG/DL (0.70-1.30); GLOMERULAR FILTRATION RATE 28.2 (>42); GLUCOSE, FASTING 176 MG/DL (70-100); MAGNESIUM LEVEL 2.5 MG/DL (1.8-2.4); SODIUM LEVEL 135 MEQ/L (136-145)
[2018-06-25] MEDS: MOM 30ML SUSPENSION UDC PO (08:22)
[2018-06-25] MEDS: CYCLOBENZAPRINE 5MG TABLET PO (08:22)
[2018-06-25] MEDS: GABAPENTIN 100 MG CAP PO ×3 (08:22→21:38)
[2018-06-25] MEDS: DOCUSATE SODIUM 100 MG CAP PO ×2 (08:22→21:38)
[2018-06-25] MEDS: MIDODRINE 2.5 MG TAB PO (08:22)
[2018-06-25] MEDS: POTASSIUM CHLORIDE 10 MEQ SR TABLET PO (08:22)
[2018-06-25] MEDS: SPIRONOLACTONE 25 MG TAB PO (08:22)
[2018-06-25] MEDS: HEPARIN SOD (PORCINE) 5000 UNITS/ML VIAL SQ ×2 (08:23→21:42)
[2018-06-25] MEDS: TORSEMIDE (DEMADEX) 50 MG PER 1/2 TAB PO ×2 (09:00→16:45)
[2018-06-25] MEDS: OMEPRAZOLE 20 MG CAP PO (21:19)
[2018-06-25] MEDS: FEBUXOSTAT 40 MG TABLET (ULORIC) PO (21:37)
[2018-06-25] MEDS: CYCLOBENZAPRINE 10 MG TAB PO (21:37)
[2018-06-25] MEDS: ASPIRIN 81 MG ENTERIC TAB PO (21:37)
[2018-06-25] MEDS: FINASTERIDE 5 MG TAB PO (21:38)
[2018-06-25] MEDS: VITAMIN D 1,000 INTERNATIONAL UNITS TABLET PO (21:38)
[2018-06-25] MEDS: DULoxetine 20 MG CAP (CYMBALTA) PO (21:38)
[2018-06-25] MEDS: CLOPIDOGREL 75 MG TAB PO (21:38)
[2018-06-26] MEDS: LEVALBUTEROL 1.25 MG/0.5 ML CONCENTRATE NEB NEB ×4 (02:00→19:34)
[2018-06-26 05:35] LABS: HEMATOCRIT 33.5 % (42.0-52.0); HEMOGLOBIN 10.2 g/dl (13.5-17.5); MEAN CORPUSCULAR HEMOGLOBIN 28.7 pg (27.0-33.0); MEAN CORPUSCULAR HGB CONC 30.4 g/dl (32.0-36.5); MEAN CORPUSCULAR VOLUME 94.4 fl (80.0-96.0); PLATELET COUNT, AUTOMATED 312 10^3/uL (150-450); RED BLOOD COUNT 3.55 10^6/uL (4.30-6.10); RED CELL DISTRIBUTION WIDTH 16.4 % (11.5-14.5); WHITE BLOOD COUNT 9.4 10^3/uL (4.0-10.0)
[2018-06-26 05:59] LABS: ANION GAP 6 MEQ/L (8-16); BLOOD UREA NITROGEN 83 MG/DL (7-18); CALCIUM LEVEL 9.3 MG/DL (8.8-10.2); CARBON DIOXIDE LEVEL 43 MEQ/L (21-32); CHLORIDE LEVEL 88 MEQ/L (98-107); CREATININE FOR GFR 2.19 MG/DL (0.70-1.30); GLOMERULAR FILTRATION RATE 31.5 (>42); GLUCOSE, FASTING 160 MG/DL (70-100); MAGNESIUM LEVEL 2.7 MG/DL (1.8-2.4); POTASSIUM SERUM 4.1 MEQ/L (3.5-5.1); SODIUM LEVEL 137 MEQ/L (136-145)
[2018-06-26] MEDS: LEVOTHYROXINE 25MCG TABLET (0.025MG) PO (06:05)
[2018-06-26] MEDS: SLF 3 ML SYR IV ×3 (06:06→21:33)
[2018-06-26] MEDS: MOM 30ML SUSPENSION UDC PO (09:43)
[2018-06-26] MEDS: GABAPENTIN 100 MG CAP PO ×3 (09:44→21:33)
[2018-06-26] MEDS: CYCLOBENZAPRINE 5MG TABLET PO (09:44)
[2018-06-26] MEDS: SPIRONOLACTONE 25 MG TAB PO (09:44)
[2018-06-26] MEDS: TORSEMIDE (DEMADEX) 50 MG PER 1/2 TAB PO ×2 (09:44→16:30)
[2018-06-26] MEDS: HEPARIN SOD (PORCINE) 5000 UNITS/ML VIAL SQ ×2 (09:44→21:35)
[2018-06-26] MEDS: DOCUSATE SODIUM 100 MG CAP PO ×2 (09:45→21:33)
[2018-06-26] MEDS: POTASSIUM CHLORIDE 10 MEQ SR TABLET PO (09:45)
[2018-06-26] MEDS: PERCOCET 5MG/325MG TAB PO ×3 (09:57→21:34)
[2018-06-26] MEDS: FEBUXOSTAT 40 MG TABLET (ULORIC) PO (21:33)
[2018-06-26] MEDS: DULoxetine 20 MG CAP (CYMBALTA) PO (21:33)
[2018-06-26] MEDS: FINASTERIDE 5 MG TAB PO (21:33)
[2018-06-26] MEDS: CLOPIDOGREL 75 MG TAB PO (21:33)
[2018-06-26] MEDS: OMEPRAZOLE 20 MG CAP PO (21:34)
[2018-06-26] MEDS: ASPIRIN 81 MG ENTERIC TAB PO (21:34)
[2018-06-26] MEDS: TAMSULOSIN 0.4 MG CAP PO (21:34)
[2018-06-26] MEDS: VITAMIN D 1,000 INTERNATIONAL UNITS TABLET PO (21:34)
[2018-06-26] MEDS: CYCLOBENZAPRINE 10 MG TAB PO (21:34)
[2018-06-27] MEDS: LEVALBUTEROL 1.25 MG/0.5 ML CONCENTRATE NEB NEB ×4 (01:46→22:06)
[2018-06-27] MEDS: LEVOTHYROXINE 25MCG TABLET (0.025MG) PO (05:35)
[2018-06-27] MEDS: SLF 3 ML SYR IV ×3 (05:35→22:00)
[2018-06-27 06:25] LABS: HEMATOCRIT 33.3 % (42.0-52.0); HEMOGLOBIN 10.4 g/dl (13.5-17.5); MEAN CORPUSCULAR HEMOGLOBIN 28.7 pg (27.0-33.0); MEAN CORPUSCULAR HGB CONC 31.2 g/dl (32.0-36.5); PLATELET COUNT, AUTOMATED 298 10^3/uL (150-450); RED BLOOD COUNT 3.62 10^6/uL (4.30-6.10); RED CELL DISTRIBUTION WIDTH 16.3 % (11.5-14.5); WHITE BLOOD COUNT 13.3 10^3/uL (4.0-10.0)
[2018-06-27 06:50] LABS: ANION GAP 5 MEQ/L (8-16); BLOOD UREA NITROGEN 77 MG/DL (7-18); CALCIUM LEVEL 9.1 MG/DL (8.8-10.2); CARBON DIOXIDE LEVEL 41 MEQ/L (21-32); CHLORIDE LEVEL 84 MEQ/L (98-107); CREATININE FOR GFR 2.24 MG/DL (0.70-1.30); GLOMERULAR FILTRATION RATE 30.7 (>42); GLUCOSE, FASTING 184 MG/DL (70-100); POTASSIUM SERUM 4.6 MEQ/L (3.5-5.1); SODIUM LEVEL 130 MEQ/L (136-145)
[2018-06-27 08:12] LABS: C REACTIVE PROTEIN QUANTITATIV 4.47 MG/DL (0.00-0.30)
[2018-06-27 08:45] LABS: ERYTHROCYTE SEDIMENTATION RATE 69 mm/hr (0-20)
[2018-06-27] MEDS: MOM 30ML SUSPENSION UDC PO (08:47)
[2018-06-27] MEDS: DOCUSATE SODIUM 100 MG CAP PO ×2 (08:48→20:19)
[2018-06-27] MEDS: TORSEMIDE (DEMADEX) 50 MG PER 1/2 TAB PO ×2 (08:48→16:49)
[2018-06-27] MEDS: GABAPENTIN 100 MG CAP PO ×3 (08:48→20:18)
[2018-06-27] MEDS: SPIRONOLACTONE 25 MG TAB PO (08:48)
[2018-06-27] MEDS: POTASSIUM CHLORIDE 10 MEQ SR TABLET PO (08:48)
[2018-06-27] MEDS: CYCLOBENZAPRINE 5MG TABLET PO (08:48)
[2018-06-27] MEDS: HEPARIN SOD (PORCINE) 5000 UNITS/ML VIAL SQ ×2 (08:49→20:19)
[2018-06-27 10:46] LABS: KETONE, URINE AUTO RFX NEGATIVE (NEGATIVE); LEUKOCYTE ESTERASE UR AUTO RFX NEGATIVE (NEGATIVE); NITRITE, URINE AUTO RFX NEGATIVE (NEGATIVE); RBC, URINE AUTO RFX 2 /HPF (0-3); SQUAM EPITHELIAL CELL UR AURFX 0 /HPF (0-6); WBC, URINE AUTO RFX 0 /HPF (0-3)
[2018-06-27] MEDS: PERCOCET 5MG/325MG TAB PO ×2 (11:16→19:00)
[2018-06-27] MEDS: TOLVAPTAN 15 MG TAB (SAMSCA) PO (20:18)
[2018-06-27] MEDS: FINASTERIDE 5 MG TAB PO (20:18)
[2018-06-27] MEDS: DULoxetine 20 MG CAP (CYMBALTA) PO (20:18)
[2018-06-27] MEDS: CYCLOBENZAPRINE 10 MG TAB PO (20:18)
[2018-06-27] MEDS: CLOPIDOGREL 75 MG TAB PO (20:19)
[2018-06-27] MEDS: VITAMIN D 1,000 INTERNATIONAL UNITS TABLET PO (20:19)
[2018-06-27] MEDS: ASPIRIN 81 MG ENTERIC TAB PO (20:19)
[2018-06-27] MEDS: FEBUXOSTAT 40 MG TABLET (ULORIC) PO (20:19)
[2018-06-27] MEDS: TAMSULOSIN 0.4 MG CAP PO (20:19)
[2018-06-27] MEDS: OMEPRAZOLE 20 MG CAP PO (20:19)
[2018-06-28] MEDS: LEVALBUTEROL 1.25 MG/0.5 ML CONCENTRATE NEB NEB ×4 (02:00→20:26)
[2018-06-28] MEDS: PERCOCET 5MG/325MG TAB PO (03:56)
[2018-06-28 05:06] LABS: HEMATOCRIT 33.6 % (42.0-52.0); HEMOGLOBIN 10.4 g/dl (13.5-17.5); MEAN CORPUSCULAR HEMOGLOBIN 29.1 pg (27.0-33.0); MEAN CORPUSCULAR VOLUME 94.1 fl (80.0-96.0); PLATELET COUNT, AUTOMATED 233 10^3/uL (150-450); RED BLOOD COUNT 3.57 10^6/uL (4.30-6.10); RED CELL DISTRIBUTION WIDTH 16.3 % (11.5-14.5); WHITE BLOOD COUNT 10.2 10^3/uL (4.0-10.0)
[2018-06-28] MEDS: LEVOTHYROXINE 25MCG TABLET (0.025MG) PO (05:30)
[2018-06-28] MEDS: SLF 3 ML SYR IV ×3 (05:32→22:00)
[2018-06-28 05:34] LABS: ANION GAP 8 MEQ/L (8-16); BLOOD UREA NITROGEN 78 MG/DL (7-18); CARBON DIOXIDE LEVEL 35 MEQ/L (21-32); CHLORIDE LEVEL 85 MEQ/L (98-107); CREATININE FOR GFR 2.51 MG/DL (0.70-1.30); GLOMERULAR FILTRATION RATE 26.9 (>42); GLUCOSE, FASTING 179 MG/DL (70-100); POTASSIUM SERUM 4.5 MEQ/L (3.5-5.1); SODIUM LEVEL 128 MEQ/L (136-145)
[2018-06-28] MEDS: DOCUSATE SODIUM 100 MG CAP PO ×2 (09:00→20:34)
[2018-06-28] MEDS: MOM 30ML SUSPENSION UDC PO (09:34)
[2018-06-28] MEDS: SPIRONOLACTONE 25 MG TAB PO (09:34)
[2018-06-28] MEDS: TORSEMIDE (DEMADEX) 50 MG PER 1/2 TAB PO ×2 (09:34→16:13)
[2018-06-28] MEDS: GABAPENTIN 100 MG CAP PO ×3 (09:34→20:32)
[2018-06-28] MEDS: CYCLOBENZAPRINE 5MG TABLET PO (09:34)
[2018-06-28] MEDS: HEPARIN SOD (PORCINE) 5000 UNITS/ML VIAL SQ ×2 (09:35→20:32)
[2018-06-28] MEDS: FINASTERIDE 5 MG TAB PO (20:32)
[2018-06-28] MEDS: CLOPIDOGREL 75 MG TAB PO (20:32)
[2018-06-28] MEDS: CYCLOBENZAPRINE 10 MG TAB PO (20:33)
[2018-06-28] MEDS: DULoxetine 20 MG CAP (CYMBALTA) PO (20:33)
[2018-06-28] MEDS: ASPIRIN 81 MG ENTERIC TAB PO (20:33)
[2018-06-28] MEDS: TAMSULOSIN 0.4 MG CAP PO (20:33)
[2018-06-28] MEDS: OMEPRAZOLE 20 MG CAP PO (20:33)
[2018-06-28] MEDS: FEBUXOSTAT 40 MG TABLET (ULORIC) PO (20:33)
[2018-06-28] MEDS: ACETAMINOPHEN TAB 650MG DOSE (2X325MG) PO (20:34)
[2018-06-28] MEDS: VITAMIN D 1,000 INTERNATIONAL UNITS TABLET PO (20:36)
[2018-06-29] MEDS: LEVALBUTEROL 1.25 MG/0.5 ML CONCENTRATE NEB NEB ×4 (01:35→20:46)
[2018-06-29] MEDS: ACETAMINOPHEN TAB 650MG DOSE (2X325MG) PO (02:09)
[2018-06-29] MEDS: SLF 3 ML SYR IV ×3 (05:39→22:00)
[2018-06-29] MEDS: LEVOTHYROXINE 25MCG TABLET (0.025MG) PO (05:39)
[2018-06-29 06:49] LABS: HEMATOCRIT 36.6 % (42.0-52.0); HEMOGLOBIN 11.2 g/dl (13.5-17.5); MEAN CORPUSCULAR HEMOGLOBIN 28.7 pg (27.0-33.0); MEAN CORPUSCULAR HGB CONC 30.6 g/dl (32.0-36.5); MEAN CORPUSCULAR VOLUME 93.8 fl (80.0-96.0); PLATELET COUNT, AUTOMATED 275 10^3/uL (150-450); RED CELL DISTRIBUTION WIDTH 16.4 % (11.5-14.5); WHITE BLOOD COUNT 11.4 10^3/uL (4.0-10.0)
[2018-06-29 07:04] LABS: ANION GAP 6 MEQ/L (8-16); BLOOD UREA NITROGEN 78 MG/DL (7-18); CALCIUM LEVEL 9.4 MG/DL (8.8-10.2); CARBON DIOXIDE LEVEL 37 MEQ/L (21-32); CHLORIDE LEVEL 84 MEQ/L (98-107); GLUCOSE, FASTING 173 MG/DL (70-100); MAGNESIUM LEVEL 3.1 MG/DL (1.8-2.4); POTASSIUM SERUM 4.2 MEQ/L (3.5-5.1); SODIUM LEVEL 127 MEQ/L (136-145)
[2018-06-29] MEDS: MOM 30ML SUSPENSION UDC PO (08:17)
[2018-06-29] MEDS: SPIRONOLACTONE 25 MG TAB PO (08:17)
[2018-06-29] MEDS: DOCUSATE SODIUM 100 MG CAP PO ×3 (08:17→23:14)
[2018-06-29] MEDS: GABAPENTIN 100 MG CAP PO ×3 (08:18→23:15)
[2018-06-29] MEDS: HEPARIN SOD (PORCINE) 5000 UNITS/ML VIAL SQ ×3 (08:18→23:13)
[2018-06-29] MEDS: CYCLOBENZAPRINE 5MG TABLET PO (08:18)
[2018-06-29] MEDS: TOLVAPTAN 15 MG TAB (SAMSCA) PO ×2 (10:30→11:52)
[2018-06-29] MEDS: VITAMIN D 1,000 INTERNATIONAL UNITS TABLET PO ×2 (21:00→23:13)
[2018-06-29] MEDS: FEBUXOSTAT 40 MG TABLET (ULORIC) PO ×2 (21:00→23:14)
[2018-06-29] MEDS: TAMSULOSIN 0.4 MG CAP PO ×2 (21:00→23:13)
[2018-06-29] MEDS: CLOPIDOGREL 75 MG TAB PO ×2 (21:00→23:15)
[2018-06-29] MEDS: DULoxetine 20 MG CAP (CYMBALTA) PO (21:00)
[2018-06-29] MEDS: ASPIRIN 81 MG ENTERIC TAB PO ×2 (21:00→23:14)
[2018-06-29] MEDS: OMEPRAZOLE 20 MG CAP PO ×2 (21:00→23:13)
[2018-06-29] MEDS: FINASTERIDE 5 MG TAB PO ×2 (21:00→23:13)
[2018-06-29] MEDS: NS 500 ML IV (23:00)
[2018-06-29] MEDS: CYCLOBENZAPRINE 10 MG TAB PO (23:15)
[2018-06-30] MEDS: LEVALBUTEROL 1.25 MG/0.5 ML CONCENTRATE NEB NEB ×4 (02:00→20:00)
[2018-06-30] MEDS: cefTRIAXone SOD 2 GM in D5W MINI-BAG PLUS 50 ML IV (05:16)
[2018-06-30] MEDS: SLF 3 ML SYR IV ×3 (05:17→20:56)
[2018-06-30] MEDS: LEVOTHYROXINE 25MCG TABLET (0.025MG) PO (05:17)
[2018-06-30 07:48] LABS: ALBUMIN 3.2 GM/DL (3.2-5.2); ANION GAP 10 MEQ/L (8-16); BLOOD UREA NITROGEN 76 MG/DL (7-18); CALCIUM LEVEL 9.3 MG/DL (8.8-10.2); CARBON DIOXIDE LEVEL 35 MEQ/L (21-32); CHLORIDE LEVEL 84 MEQ/L (98-107); CREATININE FOR GFR 2.67 MG/DL (0.70-1.30); GLUCOSE, FASTING 156 MG/DL (70-100); MAGNESIUM LEVEL 3.3 MG/DL (1.8-2.4); PHOSPHORUS LEVEL 3.9 MG/DL (2.5-4.9); POTASSIUM SERUM 4.6 MEQ/L (3.5-5.1); SODIUM LEVEL 129 MEQ/L (136-145)
[2018-06-30 07:57] LABS: URIC ACID 9.1 MG/DL (3.5-7.2)
[2018-06-30] MEDS: ACETAMINOPHEN TAB 650MG DOSE (2X325MG) PO ×2 (10:00→16:44)
[2018-06-30] MEDS: GABAPENTIN 100 MG CAP PO ×2 (10:15→17:25)
[2018-06-30] MEDS: CYCLOBENZAPRINE 5MG TABLET PO (10:15)
[2018-06-30] MEDS: SPIRONOLACTONE 25 MG TAB PO (10:15)
[2018-06-30] MEDS: DOCUSATE SODIUM 100 MG CAP PO ×2 (10:15→20:56)
[2018-06-30] MEDS: HEPARIN SOD (PORCINE) 5000 UNITS/ML VIAL SQ ×2 (10:52→20:55)
[2018-06-30] MEDS: MOM 30ML SUSPENSION UDC PO (10:52)
[2018-06-30] MEDS: DULoxetine 20 MG CAP (CYMBALTA) PO (20:55)
[2018-06-30] MEDS: OMEPRAZOLE 20 MG CAP PO (20:55)
[2018-06-30] MEDS: VITAMIN D 1,000 INTERNATIONAL UNITS TABLET PO (20:56)
[2018-06-30] MEDS: FEBUXOSTAT 40 MG TABLET (ULORIC) PO (20:56)
[2018-06-30] MEDS: TAMSULOSIN 0.4 MG CAP PO (20:56)
[2018-06-30] MEDS: ASPIRIN 81 MG ENTERIC TAB PO (20:56)
[2018-06-30] MEDS: FINASTERIDE 5 MG TAB PO (20:56)
[2018-06-30] MEDS: CLOPIDOGREL 75 MG TAB PO (20:56)
[2018-07-01] MEDS: LEVALBUTEROL 1.25 MG/0.5 ML CONCENTRATE NEB NEB ×4 (01:50→19:48)
[2018-07-01] MEDS: cefTRIAXone SOD 2 GM in D5W MINI-BAG PLUS 50 ML IV (04:24)
[2018-07-01] MEDS: LEVOTHYROXINE 25MCG TABLET (0.025MG) PO (05:40)
[2018-07-01] MEDS: SLF 3 ML SYR IV ×3 (05:48→21:35)
[2018-07-01] MEDS: DOCUSATE SODIUM 100 MG CAP PO ×2 (09:10→21:00)
[2018-07-01] MEDS: HEPARIN SOD (PORCINE) 5000 UNITS/ML VIAL SQ ×2 (09:10→21:34)
[2018-07-01] MEDS: MOM 30ML SUSPENSION UDC PO (09:10)
[2018-07-01 09:33] LABS: HEMATOCRIT 35.1 % (42.0-52.0); HEMOGLOBIN 10.6 g/dl (13.5-17.5); MEAN CORPUSCULAR HEMOGLOBIN 28.6 pg (27.0-33.0); MEAN CORPUSCULAR HGB CONC 30.2 g/dl (32.0-36.5); MEAN CORPUSCULAR VOLUME 94.6 fl (80.0-96.0); PLATELET COUNT, AUTOMATED 352 10^3/uL (150-450); RED BLOOD COUNT 3.71 10^6/uL (4.30-6.10); RED CELL DISTRIBUTION WIDTH 16.8 % (11.5-14.5); WHITE BLOOD COUNT 10.7 10^3/uL (4.0-10.0)
[2018-07-01 09:57] LABS: ANION GAP 10 MEQ/L (8-16); BLOOD UREA NITROGEN 76 MG/DL (7-18); CALCIUM LEVEL 9.2 MG/DL (8.8-10.2); CARBON DIOXIDE LEVEL 37 MEQ/L (21-32); CHLORIDE LEVEL 84 MEQ/L (98-107); CREATININE FOR GFR 2.59 MG/DL (0.70-1.30); GLOMERULAR FILTRATION RATE 25.9 (>42); GLUCOSE, FASTING 152 MG/DL (70-100); POTASSIUM SERUM 3.9 MEQ/L (3.5-5.1); SODIUM LEVEL 131 MEQ/L (136-145)
[2018-07-01] MEDS: DULoxetine 20 MG CAP (CYMBALTA) PO (21:34)
[2018-07-01] MEDS: FINASTERIDE 5 MG TAB PO (21:34)
[2018-07-01] MEDS: FEBUXOSTAT 40 MG TABLET (ULORIC) PO (21:34)
[2018-07-01] MEDS: OMEPRAZOLE 20 MG CAP PO (21:34)
[2018-07-01] MEDS: CLOPIDOGREL 75 MG TAB PO (21:34)
[2018-07-01] MEDS: VITAMIN D 1,000 INTERNATIONAL UNITS TABLET PO (21:34)
[2018-07-01] MEDS: ASPIRIN 81 MG ENTERIC TAB PO (21:35)
[2018-07-01] MEDS: TAMSULOSIN 0.4 MG CAP PO (21:35)
[2018-07-02] MEDS: LEVALBUTEROL 1.25 MG/0.5 ML CONCENTRATE NEB NEB ×4 (02:00→20:31)
[2018-07-02] MEDS: ONDANSETRON 4MG/2ML VIAL (J2405) IV (02:44)
[2018-07-02] MEDS: LEVOTHYROXINE 25MCG TABLET (0.025MG) PO (05:11)
[2018-07-02] MEDS: SLF 3 ML SYR IV ×3 (05:11→22:00)
[2018-07-02] MEDS: cefTRIAXone SOD 2 GM in D5W MINI-BAG PLUS 50 ML IV (05:11)
[2018-07-02 08:22] LABS: HEMOGLOBIN 10.2 g/dl (13.5-17.5); MEAN CORPUSCULAR HEMOGLOBIN 28.8 pg (27.0-33.0); MEAN CORPUSCULAR HGB CONC 30.9 g/dl (32.0-36.5); MEAN CORPUSCULAR VOLUME 93.2 fl (80.0-96.0); PLATELET COUNT, AUTOMATED 334 10^3/uL (150-450); RED BLOOD COUNT 3.54 10^6/uL (4.30-6.10); RED CELL DISTRIBUTION WIDTH 17.1 % (11.5-14.5); WHITE BLOOD COUNT 10.6 10^3/uL (4.0-10.0)
[2018-07-02 08:25] LABS: ALBUMIN 3.1 GM/DL (3.2-5.2); ANION GAP 5 MEQ/L (8-16); BLOOD UREA NITROGEN 74 MG/DL (7-18); CALCIUM LEVEL 8.7 MG/DL (8.8-10.2); CARBON DIOXIDE LEVEL 38 MEQ/L (21-32); CHLORIDE LEVEL 87 MEQ/L (98-107); CREATININE FOR GFR 2.76 MG/DL (0.70-1.30); GLOMERULAR FILTRATION RATE 24.1 (>42); GLUCOSE, FASTING 162 MG/DL (70-100); POTASSIUM SERUM 4.6 MEQ/L (3.5-5.1); SODIUM LEVEL 130 MEQ/L (136-145)
[2018-07-02] MEDS: HEPARIN SOD (PORCINE) 5000 UNITS/ML VIAL SQ ×2 (11:39→22:26)
[2018-07-02] MEDS: MOM 30ML SUSPENSION UDC PO (11:39)
[2018-07-02] MEDS: DOCUSATE SODIUM 100 MG CAP PO ×2 (11:39→22:27)
[2018-07-02] MEDS: ACETAMINOPHEN TAB 650MG DOSE (2X325MG) PO (11:43)
[2018-07-02] MEDS: DULoxetine 20 MG CAP (CYMBALTA) PO (22:26)
[2018-07-02] MEDS: ASPIRIN 81 MG ENTERIC TAB PO (22:26)
[2018-07-02] MEDS: CLOPIDOGREL 75 MG TAB PO (22:26)
[2018-07-02] MEDS: FINASTERIDE 5 MG TAB PO (22:26)
[2018-07-02] MEDS: FEBUXOSTAT 40 MG TABLET (ULORIC) PO (22:26)
[2018-07-02] MEDS: VITAMIN D 1,000 INTERNATIONAL UNITS TABLET PO (22:26)
[2018-07-02] MEDS: OMEPRAZOLE 20 MG CAP PO (22:27)
[2018-07-02] MEDS: TAMSULOSIN 0.4 MG CAP PO (22:27)
[2018-07-03] MEDS: LEVALBUTEROL 1.25 MG/0.5 ML CONCENTRATE NEB NEB ×4 (01:14→20:30)
[2018-07-03] MEDS: cefTRIAXone SOD 2 GM in D5W MINI-BAG PLUS 50 ML IV (04:22)
[2018-07-03] MEDS: SLF 3 ML SYR IV ×3 (05:12→21:46)
[2018-07-03] MEDS: LEVOTHYROXINE 25MCG TABLET (0.025MG) PO (05:12)
[2018-07-03 06:20] LABS: MAGNESIUM LEVEL 4.1 MG/DL (1.8-2.4)
[2018-07-03 09:44] LABS: ANION GAP 9 MEQ/L (8-16); BLOOD UREA NITROGEN 72 MG/DL (7-18); CALCIUM LEVEL 8.9 MG/DL (8.8-10.2); CARBON DIOXIDE LEVEL 37 MEQ/L (21-32); CHLORIDE LEVEL 85 MEQ/L (98-107); CREATININE FOR GFR 2.63 MG/DL (0.70-1.30); GLOMERULAR FILTRATION RATE 25.5 (>42); GLUCOSE, FASTING 203 MG/DL (70-100); POTASSIUM SERUM 3.8 MEQ/L (3.5-5.1); SODIUM LEVEL 131 MEQ/L (136-145)
[2018-07-03] MEDS: DOCUSATE SODIUM 100 MG CAP PO ×2 (10:23→21:45)
[2018-07-03] MEDS: HEPARIN SOD (PORCINE) 5000 UNITS/ML VIAL SQ ×2 (10:23→21:46)
[2018-07-03] MEDS ORDERED: PILL CRUSHER/CUTTER 1 EACH XX (13:30)
[2018-07-03] MEDS: OMEPRAZOLE 20 MG CAP PO (21:45)
[2018-07-03] MEDS: FINASTERIDE 5 MG TAB PO (21:45)
[2018-07-03] MEDS: VITAMIN D 1,000 INTERNATIONAL UNITS TABLET PO (21:45)
[2018-07-03] MEDS: DULoxetine 20 MG CAP (CYMBALTA) PO (21:45)
[2018-07-03] MEDS: TAMSULOSIN 0.4 MG CAP PO (21:45)
[2018-07-03] MEDS: FEBUXOSTAT 40 MG TABLET (ULORIC) PO (21:45)
[2018-07-03] MEDS: ASPIRIN 81 MG ENTERIC TAB PO (21:45)
[2018-07-03] MEDS: CLOPIDOGREL 75 MG TAB PO (21:45)
[2018-07-04] MEDS: LEVALBUTEROL 1.25 MG/0.5 ML CONCENTRATE NEB NEB ×4 (01:12→20:40)
[2018-07-04] MEDS: SLF 3 ML SYR IV ×3 (06:00→21:43)
[2018-07-04] MEDS: LEVOTHYROXINE 25MCG TABLET (0.025MG) PO (06:01)
[2018-07-04] MEDS: cefTRIAXone SOD 2 GM in D5W MINI-BAG PLUS 50 ML IV (06:01)
[2018-07-04 09:48] LABS: HEMATOCRIT 32.6 % (42.0-52.0); HEMOGLOBIN 10.1 g/dl (13.5-17.5); MEAN CORPUSCULAR HEMOGLOBIN 28.8 pg (27.0-33.0); MEAN CORPUSCULAR VOLUME 92.9 fl (80.0-96.0); PLATELET COUNT, AUTOMATED 331 10^3/uL (150-450); RED BLOOD COUNT 3.51 10^6/uL (4.30-6.10); RED CELL DISTRIBUTION WIDTH 17.1 % (11.5-14.5); WHITE BLOOD COUNT 8.9 10^3/uL (4.0-10.0)
[2018-07-04] MEDS: DOCUSATE SODIUM 100 MG CAP PO ×2 (09:58→21:43)
[2018-07-04] MEDS: HEPARIN SOD (PORCINE) 5000 UNITS/ML VIAL SQ ×2 (09:58→21:43)
[2018-07-04 10:12] LABS: ANION GAP 7 MEQ/L (8-16); BLOOD UREA NITROGEN 65 MG/DL (7-18); CALCIUM LEVEL 8.5 MG/DL (8.8-10.2); CARBON DIOXIDE LEVEL 36 MEQ/L (21-32); CHLORIDE LEVEL 86 MEQ/L (98-107); CREATININE FOR GFR 2.35 MG/DL (0.70-1.30); GLUCOSE, FASTING 212 MG/DL (70-100); POTASSIUM SERUM 3.6 MEQ/L (3.5-5.1); SODIUM LEVEL 129 MEQ/L (136-145)
[2018-07-04] MEDS: TORSEMIDE 20 MG TAB PO (13:01)
[2018-07-04] MEDS: aMILoride 5 MG TAB PO (13:01)
[2018-07-04] MEDS: OMEPRAZOLE 20 MG CAP PO (21:43)
[2018-07-04] MEDS: VITAMIN D 1,000 INTERNATIONAL UNITS TABLET PO (21:43)
[2018-07-04] MEDS: ASPIRIN 81 MG ENTERIC TAB PO (21:43)
[2018-07-04] MEDS: DULoxetine 20 MG CAP (CYMBALTA) PO (21:43)
[2018-07-04] MEDS: FEBUXOSTAT 40 MG TABLET (ULORIC) PO (21:43)
[2018-07-04] MEDS: TAMSULOSIN 0.4 MG CAP PO (21:43)
[2018-07-04] MEDS: CLOPIDOGREL 75 MG TAB PO (21:43)
[2018-07-04] MEDS: FINASTERIDE 5 MG TAB PO (21:43)
[2018-07-05] MEDS: LEVALBUTEROL 1.25 MG/0.5 ML CONCENTRATE NEB NEB ×4 (02:00→20:00)
[2018-07-05] MEDS: LEVOTHYROXINE 25MCG TABLET (0.025MG) PO (05:47)
[2018-07-05] MEDS: SLF 3 ML SYR IV ×3 (05:47→22:00)
[2018-07-05 06:27] LABS: MAGNESIUM LEVEL 3.4 MG/DL (1.8-2.4)
[2018-07-05 08:51] LABS: HEMATOCRIT 33.3 % (42.0-52.0); HEMOGLOBIN 10.2 g/dl (13.5-17.5); MEAN CORPUSCULAR HEMOGLOBIN 28.5 pg (27.0-33.0); MEAN CORPUSCULAR HGB CONC 30.6 g/dl (32.0-36.5); PLATELET COUNT, AUTOMATED 389 10^3/uL (150-450); RED BLOOD COUNT 3.58 10^6/uL (4.30-6.10); RED CELL DISTRIBUTION WIDTH 16.9 % (11.5-14.5); WHITE BLOOD COUNT 9.5 10^3/uL (4.0-10.0)
[2018-07-05 08:57] LABS: ANION GAP 9 MEQ/L (8-16); BLOOD UREA NITROGEN 58 MG/DL (7-18); CALCIUM LEVEL 8.8 MG/DL (8.8-10.2); CARBON DIOXIDE LEVEL 34 MEQ/L (21-32); CHLORIDE LEVEL 87 MEQ/L (98-107); GLOMERULAR FILTRATION RATE 31.3 (>42); GLUCOSE, FASTING 152 MG/DL (70-100); POTASSIUM SERUM 3.8 MEQ/L (3.5-5.1); SODIUM LEVEL 130 MEQ/L (136-145)
[2018-07-05] MEDS: HEPARIN SOD (PORCINE) 5000 UNITS/ML VIAL SQ ×2 (09:00→22:00)
[2018-07-05] MEDS: TORSEMIDE 20 MG TAB PO (09:17)
[2018-07-05] MEDS: MOXIFLOXACIN 400 MG TAB PO (09:17)
[2018-07-05] MEDS: DOCUSATE SODIUM 100 MG CAP PO ×2 (09:17→22:01)
[2018-07-05] MEDS: aMILoride 5 MG TAB PO ×2 (09:17→22:02)
[2018-07-05] MEDS: FINASTERIDE 5 MG TAB PO (22:00)
[2018-07-05] MEDS: CLOPIDOGREL 75 MG TAB PO (22:01)
[2018-07-05] MEDS: OMEPRAZOLE 20 MG CAP PO (22:01)
[2018-07-05] MEDS: VITAMIN D 1,000 INTERNATIONAL UNITS TABLET PO (22:01)
[2018-07-05] MEDS: ASPIRIN 81 MG ENTERIC TAB PO (22:01)
[2018-07-05] MEDS: TAMSULOSIN 0.4 MG CAP PO (22:01)
[2018-07-05] MEDS: ACETAMINOPHEN TAB 650MG DOSE (2X325MG) PO (22:02)
[2018-07-05] MEDS: DULoxetine 20 MG CAP (CYMBALTA) PO (22:02)
[2018-07-05] MEDS: FEBUXOSTAT 40 MG TABLET (ULORIC) PO (22:06)
[2018-07-06] MEDS: LEVALBUTEROL 1.25 MG/0.5 ML CONCENTRATE NEB NEB ×4 (01:32→20:00)
[2018-07-06] MEDS: SLF 3 ML SYR IV ×4 (06:00→22:00)
[2018-07-06] MEDS: LEVOTHYROXINE 25MCG TABLET (0.025MG) PO (06:08)
[2018-07-06] MEDS: MOXIFLOXACIN 400 MG TAB PO (06:08)
[2018-07-06 06:11] LABS: HEMATOCRIT 35.7 % (42.0-52.0); MEAN CORPUSCULAR HEMOGLOBIN 28.6 pg (27.0-33.0); MEAN CORPUSCULAR HGB CONC 30.8 g/dl (32.0-36.5); PLATELET COUNT, AUTOMATED 362 10^3/uL (150-450); RED BLOOD COUNT 3.84 10^6/uL (4.30-6.10); RED CELL DISTRIBUTION WIDTH 16.9 % (11.5-14.5); WHITE BLOOD COUNT 7.6 10^3/uL (4.0-10.0)
[2018-07-06 06:37] LABS: ANION GAP 9 MEQ/L (8-16); BLOOD UREA NITROGEN 54 MG/DL (7-18); CALCIUM LEVEL 9.1 MG/DL (8.8-10.2); CARBON DIOXIDE LEVEL 34 MEQ/L (21-32); CHLORIDE LEVEL 90 MEQ/L (98-107); CREATININE FOR GFR 2.14 MG/DL (0.70-1.30); GLOMERULAR FILTRATION RATE 32.3 (>42); GLUCOSE, FASTING 140 MG/DL (70-100); POTASSIUM SERUM 3.9 MEQ/L (3.5-5.1); SODIUM LEVEL 133 MEQ/L (136-145)
[2018-07-06] MEDS: DOCUSATE SODIUM 100 MG CAP PO ×2 (08:35→21:16)
[2018-07-06] MEDS: TORSEMIDE 20 MG TAB PO ×2 (08:36→17:51)
[2018-07-06] MEDS: HEPARIN SOD (PORCINE) 5000 UNITS/ML VIAL SQ ×2 (08:36→21:16)
[2018-07-06] MEDS: ACETAMINOPHEN TAB 650MG DOSE (2X325MG) PO ×2 (08:37→17:51)
[2018-07-06] MEDS: DULoxetine 20 MG CAP (CYMBALTA) PO (21:16)
[2018-07-06] MEDS: FEBUXOSTAT 40 MG TABLET (ULORIC) PO (21:16)
[2018-07-06] MEDS: ASPIRIN 81 MG ENTERIC TAB PO (21:16)
[2018-07-06] MEDS: CLOPIDOGREL 75 MG TAB PO (21:16)
[2018-07-06] MEDS: OMEPRAZOLE 20 MG CAP PO (21:16)
[2018-07-06] MEDS: TAMSULOSIN 0.4 MG CAP PO (21:16)
[2018-07-06] MEDS: FINASTERIDE 5 MG TAB PO (21:16)
[2018-07-06] MEDS: VITAMIN D 1,000 INTERNATIONAL UNITS TABLET PO (21:16)
[2018-07-07] MEDS: LEVALBUTEROL 1.25 MG/0.5 ML CONCENTRATE NEB NEB ×5 (02:00→20:41)
[2018-07-07] MEDS: MOXIFLOXACIN 400 MG TAB PO (05:47)
[2018-07-07] MEDS: LEVOTHYROXINE 25MCG TABLET (0.025MG) PO (05:47)
[2018-07-07] MEDS: ACETAMINOPHEN TAB 650MG DOSE (2X325MG) PO (05:47)
[2018-07-07] MEDS: SLF 3 ML SYR IV ×3 (05:48→21:27)
[2018-07-07 10:28] LABS: HEMATOCRIT 35.5 % (42.0-52.0); HEMOGLOBIN 11.1 g/dl (13.5-17.5); MEAN CORPUSCULAR HGB CONC 31.3 g/dl (32.0-36.5); MEAN CORPUSCULAR VOLUME 92.7 fl (80.0-96.0); PLATELET COUNT, AUTOMATED 363 10^3/uL (150-450); RED BLOOD COUNT 3.83 10^6/uL (4.30-6.10); RED CELL DISTRIBUTION WIDTH 16.9 % (11.5-14.5); WHITE BLOOD COUNT 7.5 10^3/uL (4.0-10.0)
[2018-07-07] MEDS: aMILoride 5 MG TAB PO (10:40)
[2018-07-07] MEDS: HEPARIN SOD (PORCINE) 5000 UNITS/ML VIAL SQ ×2 (10:40→21:26)
[2018-07-07] MEDS: TORSEMIDE 20 MG TAB PO (10:40)
[2018-07-07] MEDS: DOCUSATE SODIUM 100 MG CAP PO ×2 (10:40→21:26)
[2018-07-07 10:47] LABS: ANION GAP 10 MEQ/L (8-16); BLOOD UREA NITROGEN 54 MG/DL (7-18); CALCIUM LEVEL 8.9 MG/DL (8.8-10.2); CARBON DIOXIDE LEVEL 31 MEQ/L (21-32); CHLORIDE LEVEL 92 MEQ/L (98-107); CREATININE FOR GFR 2.56 MG/DL (0.70-1.30); GLOMERULAR FILTRATION RATE 26.3 (>42); GLUCOSE, FASTING 210 MG/DL (70-100); MAGNESIUM LEVEL 2.6 MG/DL (1.8-2.4); SODIUM LEVEL 133 MEQ/L (136-145)
[2018-07-07] MEDS ORDERED: CALCIUM CARBONATE 500 MG CHEW U/D PO (19:45)
[2018-07-07] MEDS: ASPIRIN 81 MG ENTERIC TAB PO (21:26)
[2018-07-07] MEDS: FEBUXOSTAT 40 MG TABLET (ULORIC) PO (21:26)
[2018-07-07] MEDS: VITAMIN D 1,000 INTERNATIONAL UNITS TABLET PO (21:26)
[2018-07-07] MEDS: DULoxetine 20 MG CAP (CYMBALTA) PO (21:26)
[2018-07-07] MEDS: FINASTERIDE 5 MG TAB PO (21:27)
[2018-07-07] MEDS: TAMSULOSIN 0.4 MG CAP PO (21:27)
[2018-07-07] MEDS: OMEPRAZOLE 20 MG CAP PO (21:27)
[2018-07-07] MEDS: SIMETHICONE 80 MG CHEW TAB PO (21:27)
[2018-07-07] MEDS: CLOPIDOGREL 75 MG TAB PO (21:27)
[2018-07-08] MEDS: LEVALBUTEROL 1.25 MG/0.5 ML CONCENTRATE NEB NEB (02:00)
[2018-07-08] MEDS: MOXIFLOXACIN 400 MG TAB PO (05:45)
[2018-07-08] MEDS: LEVOTHYROXINE 25MCG TABLET (0.025MG) PO (05:45)
[2018-07-08] MEDS: SLF 3 ML SYR IV (05:46)
[2018-07-08 09:33] LABS: HEMATOCRIT 36.2 % (42.0-52.0); HEMOGLOBIN 11.2 g/dl (13.5-17.5); MEAN CORPUSCULAR HEMOGLOBIN 28.9 pg (27.0-33.0); MEAN CORPUSCULAR HGB CONC 30.9 g/dl (32.0-36.5); MEAN CORPUSCULAR VOLUME 93.3 fl (80.0-96.0); PLATELET COUNT, AUTOMATED 369 10^3/uL (150-450); RED BLOOD COUNT 3.88 10^6/uL (4.30-6.10); RED CELL DISTRIBUTION WIDTH 16.7 % (11.5-14.5); WHITE BLOOD COUNT 8.2 10^3/uL (4.0-10.0)
[2018-07-08 09:55] LABS: ANION GAP 7 MEQ/L (8-16); BLOOD UREA NITROGEN 51 MG/DL (7-18); CALCIUM LEVEL 9.4 MG/DL (8.8-10.2); CARBON DIOXIDE LEVEL 33 MEQ/L (21-32); CHLORIDE LEVEL 92 MEQ/L (98-107); CREATININE FOR GFR 2.43 MG/DL (0.70-1.30); GLOMERULAR FILTRATION RATE 27.9 (>42); GLUCOSE, FASTING 151 MG/DL (70-100); POTASSIUM SERUM 4.1 MEQ/L (3.5-5.1); SODIUM LEVEL 132 MEQ/L (136-145)
[2018-07-08] MEDS: aMILoride 5 MG TAB PO (11:19)
[2018-07-08] MEDS: TORSEMIDE 20 MG TAB PO (11:20)
== END 2018-07-08 11:27 | disposition home or self-care (01) | DRG 291 ==
LOC: M MS5PR 06-29 19:50 → M ED 10:47 → M ED INP 13:22 → M MSPAV 14:47 → M PCU 16:53
PROVIDERS: Hospitalist
PROC: 0W9930Z Drainage of Right Pleural Cavity with Drainage Device, Percutaneous Approach (ICD-10-PCS; principal; 2018-06-14)
DX: I13.0 Hypertensive heart and chronic kidney disease with heart failure and stage 1 through stage 4 chronic kidney disease, or unspecified chronic kidney disease (principal); G93.41 Metabolic encephalopathy; J18.9 Pneumonia, unspecified organism; I50.43 Acute on chronic combined systolic (congestive) and diastolic (congestive) heart failure; J91.8 Pleural effusion in other conditions classified elsewhere; N17.9 Acute kidney failure, unspecified; L03.116 Cellulitis of left lower limb; E87.1 Hypo-osmolality and hyponatremia; N18.4 Chronic kidney disease, stage 4 (severe); Z66 Do not resuscitate; I25.10 Atherosclerotic heart disease of native coronary artery without angina pectoris; E11.40 Type 2 diabetes mellitus with diabetic neuropathy, unspecified; I25.5 Ischemic cardiomyopathy; I50.82 Biventricular heart failure; E11.22 Type 2 diabetes mellitus with diabetic chronic kidney disease; E11.649 Type 2 diabetes mellitus with hypoglycemia without coma; E11.621 Type 2 diabetes mellitus with foot ulcer; I50.810 Right heart failure, unspecified; M10.9 Gout, unspecified; N40.0 Benign prostatic hyperplasia without lower urinary tract symptoms; R74.0 Nonspecific elevation of levels of transaminase and lactic acid dehydrogenase [LDH]; L97.519 Non-pressure chronic ulcer of other part of right foot with unspecified severity; L97.529 Non-pressure chronic ulcer of other part of left foot with unspecified severity; I27.20 Pulmonary hypertension, unspecified; K21.9 Gastro-esophageal reflux disease without esophagitis; E03.9 Hypothyroidism, unspecified; F32.9 Major depressive disorder, single episode, unspecified; F41.9 Anxiety disorder, unspecified; D64.9 Anemia, unspecified; Z95.810 Presence of automatic (implantable) cardiac defibrillator; Z79.82 Long term (current) use of aspirin; Z95.5 Presence of coronary angioplasty implant and graft; Z79.899 Other long term (current) drug therapy; Z96.649 Presence of unspecified artificial hip joint; Z79.02 Long term (current) use of antithrombotics/antiplatelets; Z99.81 Dependence on supplemental oxygen; Z91.19 Patient's noncompliance with other medical treatment and regimen

== ENCOUNTER 2018-07-13 16:30 | Inpatient (IN) | payer OTHER, MEDICARE ==
[~2018-07-13] VITALS: Ht 157.5 cm; Wt 74.9 kg
[~2018-07-13 16:30] MED LIST changes: +AMIL5TAB4 PO; +ASCO500T PO; +CARV12.5 PO; +CELE10TA PO; +CITA10TA5 PO; +CLOP75TA2 PO; +CORE12.5 PO; +CYCL5TAB PO; +CYMB1CAP4 PO; +DULO1CAP PO; +ENSULIQ10 PO; +FEBU40TA PO; +FERR1TAB8 PO; +FLOM0.4C39 PO; -FLOM5CAP PO; +GABA-1171 PO; -GABA-279 PO; -GABA800T PO; +GABA800T4 PO; +HYDR-3716 PO; +KLOR10TA76 PO; +KLOR20TA42 PO; -LASI40TA PO; +LASI40TA9 PO; +LEVO25TA5 PO; +LIDO2URO TOP; +LIDO5TD TD; +MAG400TA PO; +MAGN400C PO; +MAGN400T5 PO; +OMEP40CA2 PO; +PATIENT COMMENT; +POTA1TAB14 PO; +PRED10TA2 PO; +SIME80TA PO; +SPIR-10 PO; -SPIR25TA2 PO; +TORS100T PO; +VITA200015 PO; +VITA500T PO; +VITAD1000T PO
[2018-07-13] MEDS ORDERED: CARV12.5 (16:48)
[2018-07-13 18:07] LABS: BASO # 0.1 10^3/uL (0.0-0.2); BASO % 0.9 % (0.0-1.0); EOS # 0.1 10^3/uL (0.0-0.50); EOS % 1.1 % (0.0-3.0); HEMATOCRIT 39.9 % (42.0-52.0); HEMOGLOBIN 12.7 g/dl (13.5-17.5); LYMPH # 2.1 10^3/uL (1.5-4.5); LYMPH % 20.6 % (24.0-44.0); MEAN CORPUSCULAR HEMOGLOBIN 28.8 pg (27.0-33.0); MEAN CORPUSCULAR HGB CONC 31.8 g/dl (32.0-36.5); MEAN CORPUSCULAR VOLUME 90.5 fl (80.0-96.0); MONO # 1.3 10^3/uL (0.0-0.8); MONO % 12.3 % (0.0-5.0); NEUTROPHILS # 6.6 10^3/uL (1.8-7.7); NEUTROPHILS % 64.5 % (36.0-66.0); PLATELET COUNT, AUTOMATED 387 10^3/uL (150-450); RED BLOOD COUNT 4.41 10^6/uL (4.30-6.10); WHITE BLOOD COUNT 10.2 10^3/uL (4.0-10.0)
[2018-07-13 18:22] LABS: BLOOD UREA NITROGEN 66 MG/DL (7-18); CALCIUM LEVEL 9.6 MG/DL (8.8-10.2); CARBON DIOXIDE LEVEL 25 MEQ/L (21-32); CHLORIDE LEVEL 94 MEQ/L (98-107); CREATININE FOR GFR 3.16 MG/DL (0.70-1.30); GLOMERULAR FILTRATION RATE 20.6 (>42); GLUCOSE, FASTING 223 MG/DL (70-100); POTASSIUM SERUM 5.5 MEQ/L (3.5-5.1); SODIUM LEVEL 133 MEQ/L (136-145)
--- NOTE | 2018-07-13 20:12 | REP ---
Right hand four views: There are no comparisons. There is no fracture or dislocation. 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 There are no calcifications or foreign bodies. Electronically Signed by Sahil Tracy MD 07/13/2018 08:04 P
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
[2018-07-13] MEDS ORDERED: NS 1,000 ML IV SCH (23:10)
[2018-07-13] MEDS ORDERED: IPRATROPIUM 0.5MG/ALBUTEROL 2.5MG INH SOL UD 3ML (DUONEB)(J7620) NEB PRN (23:15)
[2018-07-13] MEDS ORDERED: METOCLOPRAMIDE INJ 10MG/2ML VIAL (J2765) IV PRN (23:15)
[2018-07-13] MEDS ORDERED: PROMETHAZINE INJ 25 MG/ML VIAL (J2550) IV PRN (23:15)
[2018-07-14] VITALS (14 sets, daily range): BP systolic 81–124; BP diastolic 54–69; O2SAT 97
[2018-07-14] MEDS ORDERED: CARV12.5 PO (00:07)
[2018-07-14] MEDS ORDERED: VITA500T PO (00:07)
[2018-07-14] MEDS ORDERED: FLOM0.4C39 PO (00:07)
[2018-07-14] MEDS ORDERED: CITA-229 PO (00:07)
[2018-07-14] MEDS ORDERED: CYCL5TAB PO (00:07)
[2018-07-14] MEDS ORDERED: SIME80TA PO (00:07)
[2018-07-14] MEDS ORDERED: GABA-1171 PO (00:07)
[2018-07-14] MEDS ORDERED: KLOR20TA42 PO (00:07)
[2018-07-14] MEDS ORDERED: AMIL5TAB4 PO (00:07)
[2018-07-14] MEDS ORDERED: TORS20TA2 PO (00:07)
[2018-07-14 00:34] LABS: INR 1.31; PROTHROMBIN TIME 16.4 SECONDS (12.1-14.4)
[2018-07-14 00:35] LABS: PARTIAL THROMBOPLASTIN TIME 32.5 SECONDS (25.4-37.6)
[2018-07-14 00:52] LABS: ALBUMIN 3.6 GM/DL (3.2-5.2); ALT/SGPT 20 U/L (12-78); BILIRUBIN,DIRECT 0.4 MG/DL (0.0-0.2); BILIRUBIN,TOTAL 1.4 MG/DL (0.2-1.0); CPK CREATINE PHOSPHOKINASE 164 U/L (39-308); MB/CK RELATIVE INDEX 5.79 (< OR =4); TOTAL PROTEIN 7.7 GM/DL (6.4-8.2); TROPONIN I < 0.02 NG/ML (< 0.10)
[2018-07-14] MEDS: IPRATROPIUM 0.5MG/ALBUTEROL 2.5MG INH SOL UD 3ML (DUONEB)(J7620) NEB SCH ×4 (01:55→19:51)
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
[2018-07-14] MEDS ORDERED: SIMETHICONE 80 MG CHEW TAB PO PRN (02:30)
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
[2018-07-14] MEDS ORDERED: MORPHINE 4 MG/ML 1ML VIAL/SYRINGE (J2270) IV PRN (03:00)
[2018-07-14] MEDS: TAMSULOSIN 0.4 MG CAP PO SCH ×2 (03:31→20:16)
[2018-07-14] MEDS: FINASTERIDE 5 MG TAB PO SCH ×2 (03:31→20:17)
[2018-07-14] MEDS: FEBUXOSTAT 40 MG TABLET (ULORIC) PO SCH ×2 (03:55→20:16)
[2018-07-14] MEDS: DULoxetine 20 MG CAP (CYMBALTA) PO SCH ×2 (03:55→20:16)
[2018-07-14] MEDS: OMEPRAZOLE 20 MG CAP PO SCH ×2 (03:56→20:16)
[2018-07-14] MEDS: VITAMIN D 1,000 INTERNATIONAL UNITS TABLET PO SCH ×2 (03:56→20:16)
[2018-07-14] MEDS ORDERED: PERCOCET 5MG/325MG TAB PO PRN (04:00)
[2018-07-14] MEDS: ASPIRIN 81 MG ENTERIC TAB PO SCH ×2 (04:13→20:16)
[2018-07-14] MEDS: CLOPIDOGREL 75 MG TAB PO SCH ×2 (04:13→20:16)
[2018-07-14 04:55] LABS: HEMATOCRIT 37.2 % (42.0-52.0); HEMOGLOBIN 11.6 g/dl (13.5-17.5); MEAN CORPUSCULAR HEMOGLOBIN 28.9 pg (27.0-33.0); MEAN CORPUSCULAR HGB CONC 31.2 g/dl (32.0-36.5); MEAN CORPUSCULAR VOLUME 92.5 fl (80.0-96.0); PLATELET COUNT, AUTOMATED 299 10^3/uL (150-450); RED BLOOD COUNT 4.02 10^6/uL (4.30-6.10); WHITE BLOOD COUNT 10.1 10^3/uL (4.0-10.0)
[2018-07-14 05:15] LABS: BILIRUBIN,TOTAL 1.1 MG/DL (0.2-1.0); CALCIUM LEVEL 8.9 MG/DL (8.8-10.2); CREATININE FOR GFR 2.79 MG/DL (0.70-1.30); GLOMERULAR FILTRATION RATE 23.8 (>42); POTASSIUM SERUM 4.5 MEQ/L (3.5-5.1); TOTAL PROTEIN 6.5 GM/DL (6.4-8.2)
[2018-07-14] MEDS: LEVOTHYROXINE 25MCG TABLET (0.025MG) PO SCH (06:39)
[2018-07-14] MEDS ORDERED: PERCOCET 5MG/325MG TAB As Ordered ONE (08:19)
[2018-07-14] MEDS: ASCORBIC ACID 500 MG TAB PO SCH (08:30)
[2018-07-14] MEDS: GABAPENTIN 100 MG CAP PO SCH ×3 (08:30→20:16)
[2018-07-14] MEDS: PERCOCET 5MG/325MG TAB PO PRN ×3 (08:31→16:53)
[2018-07-14] MEDS: CitaloPRAM (CeleXA) 10 MG TABLET PO SCH (08:31)
[2018-07-14] MEDS ORDERED: PANTOPRAZOLE 40MG TAB (PROTONIX) PO SCH (09:00)
[2018-07-14] MEDS ORDERED: CARVedilol 12.5 MG TAB PO SCH (09:00)
--- NOTE | 2018-07-14 09:04 | REP ---
Chest x-ray: Two views. History: Pleural effusion. Comparison study: June 27, 2018. Findings: EKG monitoring electrodes overlie the chest. Pacemaker is seen in the right heart. Cardiomegaly is observed. Multiple interrupted median sternotomy wires are again noted. There is a small to moderate right pleural effusion again noted essentially unchanged with some fissural thickening in the minor fissure. There are old healed rib fractures bilaterally. The left lung is clear. Pulmonary vasculature is somewhat cephalized. There is very slight blunting of the posterior pleural angle on the left on the lateral radiograph. Impression: CHF pattern with right effusion. Cardiomegaly with pacemaker. Electronically Signed by Robert Solano MD 07/14/2018 06:10 P
[2018-07-14] MEDS: ONDANSETRON 4MG/2ML VIAL (J2405) IV PRN ×2 (09:57→17:05)
[2018-07-14] MEDS: CYCLOBENZAPRINE 5MG TABLET PO PRN (12:00)
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
[2018-07-14] MEDS ORDERED: GLUCOSE 4 GM CHEW TABLET PO PRN (14:45)
[2018-07-14] MEDS ORDERED: GLUCAGON FOR INJ 1 MG VIAL (J1610) SC PRN (14:45)
[2018-07-14] MEDS ORDERED: DEXTROSE 50% 50 ML SYRINGE IV PRN (14:45)
--- NOTE | 2018-07-14 16:09 | IPN ---
DATE: 07/14/2018 PROGRESS NOTE: Patient overnight did relatively well and feels pretty good this morning. From a shortness of breath standpoint, chest pain standpoint, he has been relatively stable overnight, and from a respiratory standpoint is not feeling any worse than he was yesterday. Dr. Keen has seen him and feels that the right pleural effusion is mostly secondary to heart failure and with his anticoagulation on board would prefer not to place a catheter into his chest unless absolutely necessary or if he shows significant decline in hematocrit, or has some progressive shortness breath issues. Otherwise, from an abdominal standpoint and from a general surgery standpoint, I am not seeing any intra-abdominal findings. We will get him on a regular diet, and I have discussed this with medicine. They will take him on their service tomorrow, but otherwise, from a surgical standpoint he can continue to be evaluated/treated from medicine, nephrology and cardiothoracic surgery.
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
[2018-07-14] MEDS: HumaLOG INSULIN (NovoLOG) PER UNIT SC SCH ×2 (16:53→20:35)
[2018-07-14] MEDS ORDERED: FUROSEMIDE 40 MG/4 ML VIAL (J1940) IV ONE (18:00)
[2018-07-14] MEDS ORDERED: hydrOXYzine 25 MG TAB PO ONE (21:00)
[2018-07-15] VITALS (21 sets, daily range): BP systolic 73–97; BP diastolic 52–66
[2018-07-15] MEDS: IPRATROPIUM 0.5MG/ALBUTEROL 2.5MG INH SOL UD 3ML (DUONEB)(J7620) NEB SCH ×4 (02:12→19:39)
[2018-07-15 05:11] LABS: HEMOGLOBIN 11.3 g/dl (13.5-17.5); MEAN CORPUSCULAR HEMOGLOBIN 28.6 pg (27.0-33.0); MEAN CORPUSCULAR HGB CONC 30.5 g/dl (32.0-36.5); MEAN CORPUSCULAR VOLUME 93.7 fl (80.0-96.0); PLATELET COUNT, AUTOMATED 292 10^3/uL (150-450); RED BLOOD COUNT 3.95 10^6/uL (4.30-6.10); WHITE BLOOD COUNT 11.5 10^3/uL (4.0-10.0)
[2018-07-15 05:34] LABS: ALBUMIN 3.2 GM/DL (3.2-5.2); BILIRUBIN,TOTAL 1.2 MG/DL (0.2-1.0); CALCIUM LEVEL 8.8 MG/DL (8.8-10.2); CREATININE FOR GFR 3.28 MG/DL (0.70-1.30); GLOMERULAR FILTRATION RATE 19.7 (>42); POTASSIUM SERUM 4.9 MEQ/L (3.5-5.1); TOTAL PROTEIN 6.8 GM/DL (6.4-8.2)
[2018-07-15] MEDS: LEVOTHYROXINE 25MCG TABLET (0.025MG) PO SCH (06:07)
[2018-07-15] MEDS: ASCORBIC ACID 500 MG TAB PO SCH (07:34)
[2018-07-15] MEDS: CitaloPRAM (CeleXA) 10 MG TABLET PO SCH (07:34)
[2018-07-15] MEDS: GABAPENTIN 100 MG CAP PO SCH ×3 (07:34→20:48)
[2018-07-15] MEDS: CYCLOBENZAPRINE 5MG TABLET PO PRN (07:34)
[2018-07-15] MEDS: PERCOCET 5MG/325MG TAB PO PRN (07:35)
[2018-07-15] MEDS: HumaLOG INSULIN (NovoLOG) PER UNIT SC SCH ×4 (07:40→20:48)
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
[2018-07-15] MEDS ORDERED: MIDODRINE 5 MG TAB PO SCH (08:00)
--- NOTE | 2018-07-15 08:14 | ECGEPIP ---
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
--- NOTE | 2018-07-15 08:39 | REP ---
Chest x-ray: Two views. History: Pleural effusion. Comparison study: July 14, 2018. Findings: EKG monitoring electrodes are again seen. A unipolar pacemaker is noted in the right heart via the left side. Median sternotomy wires and clips are noted. A right pleural effusion is again noted unchanged from yesterday's radiograph. Heart size is mildly prominent also unchanged. There is no evidence of new infiltrate or pulmonary edema. Electronically Signed by Robert Solano MD 07/15/2018 10:07 A
[2018-07-15] MEDS: DOBUTamine HCL 500,000 MCG in APPROPRIATE DILUENT 1 EA IV SCH (12:56)
--- NOTE | 2018-07-15 14:09 | IPN ---
DATE OF SERVICE: 07/15/2018 SUBJECTIVE: The patient was seen and examined at the bedside today morning in the intensive care unit (ICU). I was called yesterday by patient's RN because of his oliguria. A dose of Lasix 40 mg IV times one dose was given, but despite that there is no improvement in his urine output. I did the bedside bladder scan today myself and there is only 120 mL of urine in the bladder on bladder scan. The patient is hypotensive with blood pressure running in the low 80s and renal function is again worse with a creatinine rising from 2.7 to 3.2 today. The patient is drowsy and sleepy and he reports weakness and lethargy. OBJECTIVE: VITAL SIGNS: Temperature is 98.4 degrees Fahrenheit. Blood pressure 83/55. Pulse is 109. Respiratory rate of 16. Saturating 99% on nasal cannula at 2 liters. INTAKE AND OUTPUT: Urine output is not recorded for overnight. It was only 350 mL yesterday. Weight on the bed scale is not available. Weight yesterday was 66.2 kg. PHYSICAL EXAMINATION: GENERAL: The patient is drowsy and sleepy, laying in bed, in no apparent distress. HEAD AND NECK EXAM: Extraocular muscles are intact. Pupils are equally round and reactive to light. Mucous membranes are moist. Neck is supple. There is mildly elevated jugular venous distention (JVD). CARDIOVASCULAR: S1, S2. Tachycardia. Irregular heart rate. 1+ edema of the bilateral lower extremities. RESPIRATORY: Decreased breath sounds at the bases. There is decreased focal resonance in the right lower and mid lung zones. ABDOMEN: Soft. Positive bowel sounds. Nontender. GENITOURINARY: Bedside bladder scan showed 120 mL of urine in the bladder. MUSCULOSKELETAL: No clubbing or cyanosis. 1+ edema of the bilateral lower extremities. He is wearing the compression stockings. 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 Power is 5/5 in bilateral upper extremities. Patient is drowsy. LABORATORY REVIEW: CBC showed a WBC of 11.5, hemoglobin 11.3, platelets of 292. BMP showed sodium 133, potassium 4.9, chloride 98, bicarbonate 25, BUN 70, creatinine 3.2 and it was 2.7 yesterday, calcium 8.8, magnesium 2.5, total bilirubin 1.2, albumin 3.2. IMAGING: A chest x-ray done today morning showed right pleural effusion unchanged from yesterday's imaging. No evidence of infiltrate or pulmonary edema. CURRENT INPATIENT MEDICATIONS: The patient's medications were all reviewed by me. He was initially started on midodrine today morning which has been stopped now. I have started the patient on dobutamine infusion. Vitamin C has also been stopped. He was given one dose of Lasix 40 mg IV last night. No other change in the medications today as compared with yesterday. ASSESSMENT AND PLAN: 1. Acute kidney injury superimposed on chronic kidney disease stage IV. The patient has severe ischemic cardiomyopathy, very low ejection fraction, hypokinetic left and right ventricles. I believe acute kidney injury is most likely cardiorenal in nature. I am starting the patient on dobutamine infusion. Once his blood pressures get better, I will try to gently diurese the patient. 2. Ischemic cardiomyopathy. The patient has severe systolic heart failure. He is not a candidate for beta blockers or WALDEMAR inhibitors at this time because of very low blood pressures and renal failure. As mentioned above, I am starting the patient on a dobutamine infusion and once his blood pressures get better, I will try to gently diurese the patient. 3. Recurrent right sided pleural effusion. It is secondary to severely decompensated congestive heart failure. The patient had a chest tube on previous hospitalization. If needed, patient's right pleural effusion can be tapped again. 4. Benign prostatic hypertrophy (BPH) with low urinary tract symptoms. Bedside bladder scan showed urine of only 120 mL. Continue current dose of finasteride and Flomax. No need of Davis catheterization at this point. 5. Hypotension. The patient has baseline low blood pressures. Hypotension is secondary to heart failure. Initially he was started on midodrine, however, if he has been started on dobutamine for inotropic support, hopefully, it would help improve his blood pressure. 6. Hyponatremia. Patient has hypervolemic hyponatremia secondary to acute oliguric renal failure. Sodium level will improve only after patient's renal function starts improving and if he starts making urine with better cardiac output. 7. Disposition. Patient has severe end stage heart failure. Overall he has a very poor prognosis. It has been complicated by cardiorenal syndrome and acute oliguric renal failure. Plan of care was discussed with the primary medical team resident as well. LOGAN
[2018-07-15 18:24] LABS: APPEARANCE, URINE HAZY (CLEAR); BACTERIA, URINE AUTO NEGATIVE (NEGATIVE); BILIRUBIN, URINE AUTO NEGATIVE (NEGATIVE); BLOOD, URINE BLOOD NEGATIVE (NEGATIVE); COLOR, URINE AMBER (YELLOW); GLUCOSE, URINE (UA) AUTO NEGATIVE (NEGATIVE); KETONE, URINE AUTO NEGATIVE (NEGATIVE); LEUKOCYTE ESTERASE, URINE AUTO TRACE (NEGATIVE); NITRITE, URINE AUTO NEGATIVE (NEGATIVE); PROTEIN, URINE AUTO NEGATIVE (NEGATIVE); RBC, URINE AUTO 1 /HPF (0-3); SPECIFIC GRAVITY URINE AUTO 1.017 (1.002-1.035); SQUAMOUS EPITHELIAL CELL UR AU 0 /HPF (0-6); WBC, URINE AUTO 2 /HPF (0-3)
[2018-07-15 18:43] LABS: CHLORIDE,RANDOM URINE < 10 MEQ/L; SODIUM,RANDOM URINE < 10 MEQ/L
--- NOTE | 2018-07-15 20:28 | IPN ---
DATE: 07/15/2018 The patient overall has been stable. His major issues still include rib fractures, pulmonary effusion and medical issues at this time with a relatively stable hematocrit. White count is slightly elevated without any fevers or chills. His creatinine has bumped back up and is currently being seen by nephrology. His abdomen is soft, nontender, nondistended. IMPRESSION AND PLAN: No general surgical issues are present at this time. As I had discussed with Dr. Valenzuela yesterday, will transfer him over to his service for hospitalist care. Dr. Keen will plan on continuing his evaluation and recommendations concerning rib fractures, pleural effusion and nephrology is watching him closely and assisting with their care.
--- NOTE | 2018-07-15 20:44 | IPN ---
DATE: 07/15/2018 Mr. Morejon is feeling better today. While he has aches and pains all over, he surprisingly has no chest pain at all. His vital signs show a maximum temperature (T max) of 98.4 with a heart rate that ranges between 101 and 112 and is sinus rhythm, respiratory rate of 18 to 20 without the use of accessory muscles who is 98% saturated on 2 liters nasal cannula. His intake and output the past 24 hours has been recorded as 2275 in and 350 out for a positivity of 1925 mL. No weight is recorded on him today. On physical examination, his lungs show decreased breath sounds in the right lower base. There is no E to A egophony. He has a dull percussion note just at the very base of the right side. There is no chest pain to palpation. There is no subcutaneous emphysema. Left lung shows normal vesicular sounds. Percussion is full to the diaphragm on the left side. Cardiac exam does not show any murmurs, clicks, gallops or rubs. I cannot feel his point of maximum impulse (PMI). S1, S2 are normal. Abdomen is soft and nontender. Bowel sounds are positive. There is no hepatomegaly. No costovertebral angle (CVA) tenderness. Extremities show 2+ pretibial edema. No calf tenderness. No differential swelling of the upper extremities. Skin is warm, dry and perfused without cyanosis or mottling, including that of the nail beds and the knees. Neck is supple. There is no jugular venous distention, no subcutaneous emphysema. Trachea is midline. Mouth shows his mucous membranes to be pink and moist. Lips and commissures without lesions. There is no thrush. Eyes show his pupils to be equal and reactive. Extraocular motions intact. Sclerae anicteric. Neurologic shows II-XII intact along with gross motor and gross sensation intact. Gait is not tested. Psychiatric shows him to be awake and alert, oriented times three with appropriate mood and affect and conversational. His chest x-ray today shows his left pleural effusion to be no worse than yesterday. As noted yesterday, it has improved from his discharge chest x-ray a few weeks ago. Lung is fully expanded to the chest wall. His white count today is 11.5 with a hemoglobin and hematocrit of 11.2 and 37 respectively, unchanged from yesterday, with a platelet count of 292. Chemistries today show a marginally low sodium of 133 with the remainder of his electrolytes normal, but with a BUN and creatinine of 70 and 3.28. Glucose is 208 with a calcium of 8.8. Corresponding albumin is 3.2. IMPRESSION: 1. Rib fractures, simple, at 8 and 9, nondisplaced. 2. Pleural effusion, probably secondary to heart failure. 3. Congestive heart failure with global dyskinesis. 4. 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 5. Renal insufficiency. 6. Diabetes. 7. Hypothyroidism. 8. Hypertension. 9. Coronary artery disease. 10. Unstable sternum pre-trauma from his prior coronary artery bypass. PLAN AND DISCUSSION: I am very sure that his pleural effusion is again secondary to his systolic heart failure with an ejection fraction of 20%. I do not think this represents a hemothorax secondary to his rib fractures. He does not complain of his rib fractures in the form of pain. I have recommended aggressive diuresis to keep his effusion under control. His creatinine today is up from diuresis yesterday, having come down from the day before. I will sign off his case today as the rib fractures are no longer a problem, and his pleural effusion is not a hemothorax.
[2018-07-15] MEDS: DULoxetine 20 MG CAP (CYMBALTA) PO SCH (20:48)
[2018-07-15] MEDS: CLOPIDOGREL 75 MG TAB PO SCH (20:48)
[2018-07-15] MEDS: VITAMIN D 1,000 INTERNATIONAL UNITS TABLET PO SCH (20:48)
[2018-07-15] MEDS: TAMSULOSIN 0.4 MG CAP PO SCH (20:48)
[2018-07-15] MEDS: FINASTERIDE 5 MG TAB PO SCH (20:48)
[2018-07-15] MEDS: OMEPRAZOLE 20 MG CAP PO SCH (20:48)
[2018-07-15] MEDS: ASPIRIN 81 MG ENTERIC TAB PO SCH (20:48)
[2018-07-15] MEDS: FEBUXOSTAT 40 MG TABLET (ULORIC) PO SCH (20:50)
[2018-07-15] MEDS ORDERED: FUROSEMIDE 100 MG/10 ML VIAL (J1940) IV ONE (22:30)
[2018-07-16] VITALS (18 sets, daily range): BP systolic 82–119; BP diastolic 51–74
[2018-07-16] MEDS: IPRATROPIUM 0.5MG/ALBUTEROL 2.5MG INH SOL UD 3ML (DUONEB)(J7620) NEB SCH ×4 (02:01→19:46)
[2018-07-16] MEDS: PERCOCET 5MG/325MG TAB PO PRN ×3 (05:01→20:01)
[2018-07-16] MEDS: LEVOTHYROXINE 25MCG TABLET (0.025MG) PO SCH (05:01)
[2018-07-16 05:08] LABS: HEMOGLOBIN 10.1 g/dl (13.5-17.5); MEAN CORPUSCULAR HEMOGLOBIN 28.3 pg (27.0-33.0); MEAN CORPUSCULAR HGB CONC 29.7 g/dl (32.0-36.5); MEAN CORPUSCULAR VOLUME 95.2 fl (80.0-96.0); PLATELET COUNT, AUTOMATED 236 10^3/uL (150-450); RED BLOOD COUNT 3.57 10^6/uL (4.30-6.10); WHITE BLOOD COUNT 11.1 10^3/uL (4.0-10.0)
[2018-07-16 06:32] LABS: ALBUMIN 3.1 GM/DL (3.2-5.2); BILIRUBIN,TOTAL 1.1 MG/DL (0.2-1.0); CALCIUM LEVEL 8.7 MG/DL (8.8-10.2); CREATININE FOR GFR 3.55 MG/DL (0.70-1.30); POTASSIUM SERUM 5.7 MEQ/L (3.5-5.1); TOTAL PROTEIN 6.5 GM/DL (6.4-8.2)
[2018-07-16] MEDS: GABAPENTIN 100 MG CAP PO SCH ×3 (08:50→20:00)
[2018-07-16] MEDS: CitaloPRAM (CeleXA) 10 MG TABLET PO SCH (08:50)
[2018-07-16] MEDS: HumaLOG INSULIN (NovoLOG) PER UNIT SC SCH ×4 (08:51→20:01)
--- NOTE | 2018-07-16 09:03 | REP ---
Chest x-ray: Two views. History: Pleural effusion. Comparison study: July 15, 2018. Findings: Right pleural effusion persists essentially unchanged. Cardiomegaly is observed. A unipolar pacemaker remains in place. EKG electrodes are seen. No infiltrate noted on the left. Advanced arthropathy is again seen in the shoulders. Lateral view shows blunting of both posterior pleural angles. Impression: Bilateral pleural effusions right larger than left. Cardiomegaly with pacemaker. Prior sternotomy. Electronically Signed by Robert Solano MD 07/16/2018 08:55 A
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
[2018-07-16] MEDS ORDERED: PATIROMER SORBITEX CALCIUM 8.4 GM POWDER PACKET (VELTASSA) PO ONE (10:00)
[2018-07-16] MEDS ORDERED: CHLOROTHIAZIDE 500 MG VIAL (J1205) IV ONE (13:00)
[2018-07-16] MEDS: DOBUTamine HCL 500,000 MCG in APPROPRIATE DILUENT 1 EA IV SCH (16:03)
[2018-07-16] MEDS: FUROSEMIDE 100 MG/10 ML VIAL (J1940) IV SCH (16:46)
[2018-07-16] MEDS: OMEPRAZOLE 20 MG CAP PO SCH (19:59)
[2018-07-16] MEDS: VITAMIN D 1,000 INTERNATIONAL UNITS TABLET PO SCH (19:59)
[2018-07-16] MEDS: CLOPIDOGREL 75 MG TAB PO SCH (20:00)
[2018-07-16] MEDS: TAMSULOSIN 0.4 MG CAP PO SCH (20:00)
[2018-07-16] MEDS: ASPIRIN 81 MG ENTERIC TAB PO SCH (20:00)
[2018-07-16] MEDS: DULoxetine 20 MG CAP (CYMBALTA) PO SCH (20:00)
[2018-07-16] MEDS: FEBUXOSTAT 40 MG TABLET (ULORIC) PO SCH (20:00)
[2018-07-16] MEDS: FINASTERIDE 5 MG TAB PO SCH (20:00)
--- NOTE | 2018-07-16 21:35 | IPN ---
DATE: 07/16/2018 SUBJECTIVE: The patient was seen and examined at the bedside today in the morning. The patient reports that he is slightly feeling better today as compared with yesterday. He is currently on intravenous (IV) dobutamine. He was given IV Lasix yesterday as well. He started making urine. He is nonoliguric at this point. However, there is no significant improvement in the renal function, and the patient is hyperkalemic today as well. His blood pressures are stable now with systolic blood pressure running in 90s. OBJECTIVE: VITAL SIGNS: Temperature is 98 degrees Fahrenheit, blood pressure is 106/69, pulse is 110, respiratory rate of 16, saturating 95% on room air. INTAKE/OUTPUT: Urine output since overnight so far is 750 mL. Weight on the bed scale is 69.3 kg. PHYSICAL EXAMINATION: GENERAL: The patient is awake, alert, oriented times three, laying in bed, in no apparent distress. HEAD AND NECK EXAM: Extraocular muscles intact. Pupils equally round and reactive to light. Mucous membranes are moist. Neck is supple. Mildly elevated jugular venous distention (JVD). CARDIOVASCULAR: S1, S2, tachycardia, irregular heart rate. Left parasternal heaving was noted. 1+ edema of the bilateral lower extremities was also noted. RESPIRATORY: Decreased breath sounds at the bases. Decreased vocal resonance in the right base and right midlung zone. ABDOMEN: Abdomen is soft. Positive bowel sounds. No organomegaly. GENITOURINARY: Bladder is not palpable. MUSCULOSKELETAL: No clubbing or cyanosis. 1+ edema of the bilateral lower extremities. CENTRAL NERVOUS SYSTEM: No focal deficit. Power is 5/5 in bilateral upper extremities. LAB REVIEW: CBC showed a WBC of 11.1, hemoglobin 10.1, platelets are 236. BMP showed sodium 132, potassium 5.7, chloride 96, bicarbonate 29, BUN 75, creatinine is 3.5; it was 3.2 today, calcium 8.7, albumin is 3.1. IMAGING: A chest x-ray was done today, which showed bilateral pleural effusions, right greater than left, cardiomegaly. CURRENT INPATIENT MEDICATIONS: The patient's medications were all reviewed by me. The patient continues to be on a dobutamine infusion. He was given a dose of Diuril 250 mg IV times one dose. He was also started on furosemide 60 mg IV every 8 hours. ASSESSMENT AND PLAN: 1. Acute kidney injury superimposed on chronic kidney disease stage IV. It is secondary to cardiorenal syndrome. Patient is on IV dobutamine infusion. Blood pressures are systolic in 90s. I have started the patient on Lasix 60 mg IV every 8 hours. If he does not respond to Lasix injection, then he will be started on IV Lasix infusion. 2. Severe ischemic cardiomyopathy with biventricular failure. The patient is not a candidate for beta-blockers or angiotensin-converting enzyme (WALDEMAR) inhibitors. He is currently on dobutamine infusion. He is being diuresed with Lasix. 3. Recurrent right-sided pleural effusion. It is secondary to severe systolic heart failure. Decision to do thoracentesis is as per thoracic surgery. 4. Hyperkalemia. It is secondary to acute renal failure. The patient was given a dose of Veltassa 16.8 grams by mouth times one dose. Improvement in the renal function and urine output would also help improve the potassium level. 5. Hyponatremia. The patient has hypervolemic hyponatremia. Sodium level is expected to improve once the patient starts diuresing with Lasix. GOALS OF CARE: I discussed the patient's current status including the severe biventricular failure requiring dobutamine infusion, cardiorenal syndrome causing acute oliguric renal failure. I explained to the patient that overall he has a very poor prognosis with less than 6 months probability of living, and I explained to him that he needs to consider hospice. At this point, he wants to continue all the treatment. I would continue the dobutamine infusion at this point. The patient needs to discuss with his friends and family members, and he will make his decision over the next few days.
[2018-07-17] VITALS (8 sets, daily range): BP systolic 96–163; BP diastolic 51–107
[2018-07-17] MEDS: FUROSEMIDE 100 MG/10 ML VIAL (J1940) IV SCH ×4 (00:21→23:45)
[2018-07-17] MEDS: IPRATROPIUM 0.5MG/ALBUTEROL 2.5MG INH SOL UD 3ML (DUONEB)(J7620) NEB SCH ×4 (02:00→20:22)
[2018-07-17] MEDS: LEVOTHYROXINE 25MCG TABLET (0.025MG) PO SCH (05:31)
[2018-07-17] MEDS: PERCOCET 5MG/325MG TAB PO PRN ×3 (05:31→23:46)
[2018-07-17 05:50] LABS: HEMATOCRIT 35.3 % (42.0-52.0); MEAN CORPUSCULAR HEMOGLOBIN 29.1 pg (27.0-33.0); MEAN CORPUSCULAR HGB CONC 31.2 g/dl (32.0-36.5); MEAN CORPUSCULAR VOLUME 93.4 fl (80.0-96.0); PLATELET COUNT, AUTOMATED 232 10^3/uL (150-450); RED BLOOD COUNT 3.78 10^6/uL (4.30-6.10); WHITE BLOOD COUNT 10.8 10^3/uL (4.0-10.0)
[2018-07-17 06:23] LABS: BILIRUBIN,TOTAL 1.2 MG/DL (0.2-1.0); CALCIUM LEVEL 8.9 MG/DL (8.8-10.2); CREATININE FOR GFR 3.23 MG/DL (0.70-1.30); GLOMERULAR FILTRATION RATE 20.1 (>42); POTASSIUM SERUM 5.1 MEQ/L (3.5-5.1)
[2018-07-17 06:24] LABS: ALBUMIN 3.2 GM/DL (3.2-5.2); TOTAL PROTEIN 7.4 GM/DL (6.4-8.2)
[2018-07-17] MEDS: HumaLOG INSULIN (NovoLOG) PER UNIT SC SCH ×4 (07:46→20:39)
[2018-07-17] MEDS: CitaloPRAM (CeleXA) 10 MG TABLET PO SCH (09:18)
[2018-07-17] MEDS: GABAPENTIN 100 MG CAP PO SCH ×3 (09:18→20:39)
--- NOTE | 2018-07-17 11:07 | REP ---
REASON FOR EXAM: Pleural effusions. COMPARISON: Multiple, latest 07/16/2018. The technique utilized in obtaining the radiograph has magnified the cardiac silhouette and accentuated the interstitial markings. There is a right pleural effusion and allowing for the differences in the technical factors between the exams it is probably unchanged with increased layering on today's exam compared to the prior exam. There is global cardiomegaly status quo. Single chamber bipolar pacemaker status quo. Note is again made of previous median sternotomy with multiple fractured sternal wires status quo. There is no change in the osseous structures. IMPRESSION: No significant change with technical factors as described above. Electronically Signed by Tacho Camacho DO 07/17/2018 11:19 A
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
[2018-07-17] MEDS: VITAMIN D 1,000 INTERNATIONAL UNITS TABLET PO SCH (20:38)
[2018-07-17] MEDS: ASPIRIN 81 MG ENTERIC TAB PO SCH (20:38)
[2018-07-17] MEDS: FINASTERIDE 5 MG TAB PO SCH (20:38)
[2018-07-17] MEDS: FEBUXOSTAT 40 MG TABLET (ULORIC) PO SCH (20:38)
[2018-07-17] MEDS: DULoxetine 20 MG CAP (CYMBALTA) PO SCH (20:39)
[2018-07-17] MEDS: TAMSULOSIN 0.4 MG CAP PO SCH (20:39)
[2018-07-17] MEDS: CLOPIDOGREL 75 MG TAB PO SCH (20:39)
[2018-07-17] MEDS: OMEPRAZOLE 20 MG CAP PO SCH (20:39)
--- NOTE | 2018-07-17 21:16 | IPN ---
DATE: 07/16/2018 Yesterday, I intended to sign off Mr. Morejon's care; however, while in the intensive care unit (ICU), he beckoned me into his room. He was told today by his attending physicians that he had 4 to 6 months to live. I did reaffirm that his heart was not working well, although I declined to estimate any type of longevity. He does complain more of shortness of breath. His chest x-ray clearly shows the effusion has increased. In spite of diuresis, he has put out very little urine output. His vital signs show a maximum temperature (T max) of 99.2 with a heart rate that ranges between 112 and 116. Blood pressure is ranging between 85/61 to only 97/74. He is 92% saturated on room air. Respiratory rate is 15 to 20 without accessory muscles. His intake and output over the past 24 hours has been recorded as 1096 in and 175 out for a positivity of 921 mL. His urine output has been recorded as 175 mL. Weight today is 69.8 kg compared to 66.2 kg on 07/14/2018. PHYSICAL EXAMINATION: LUNGS: He has decreased breath sounds with a dull percussion note at the right lower hemithorax. He also has bilateral rales and rhonchi. CARDIAC EXAM: Shows a soft systolic murmur heard best at the left lower sternal border. He is sitting up and I can feel his point of maximum impulse (PMI) in the midclavicular line, 6th intercostal space. S1, S2 are normal. ABDOMEN: Soft, nontender. Bowel sounds positive. There is no hepatomegaly. No costovertebral angle tenderness. EXTREMITIES: Show still 2+ pretibial edema. There is no differential swelling of the upper extremities. SKIN: Warm, dry and perfused without cyanosis or mottling, including that of the nail beds and knees. NEURO: Shows II-XII intact. Gross motor and gross sensation intact. Gait is not tested. NECK: Supple. There is no jugular venous distention. No subcutaneous emphysema. Trachea is midline. MOUTH: Shows his mucous membranes to be pink and moist. Lips and commissures without lesions. There is no thrush. EYES: Show his pupils to be equal and reactive. Extraocular motion intact. Sclerae anicteric. PSYCHIATRIC: Shows him to be awake and alert, oriented times three with appropriate mood and affect and conversational. His white count today is 11.1, essentially unchanged from yesterday with a hemoglobin and hematocrit of 10.1 and 34.0, slightly down from 11.3 and 37.0 yesterday. Platelet count is 236. Chemistries today show a sodium of 132, potassium 5.7, BUN and creatinine of 75 and 3.55. Calcium is 8.7 with a corresponding albumin of 3.1 and a glucose of 161. His chest x-ray shows increasing pleural effusion in the right hemithorax. Lateral film also shows increasing pleural effusion posteriorly. He has somewhat of a globular heart. He did not have a pleural effusion on chest CT, but he did have a large heart. IMPRESSION: 1. Recurrent right pleural effusion, probably secondary to heart failure. 2. Systolic heart failure with an ejection fraction of 20%. 3. Rib fractures, simple, at 8 and 9 on the right. 4. Renal failure. 5. Right heart failure. 6. Diabetes. 7. Hypothyroidism. 8. Hypertension. 9. Coronary artery disease. 10. Unstable sternum pre-trauma from prior coronary artery bypass grafting procedure. PLAN AND DISCUSSION: If his kidneys are such that we can no longer get enough fluid off of him, I may have to consider placing a PleurX catheter. This is not a great choice as it will nutritionally deplete him. He does not have a lot of blood pressure to work to provide adequate fluid reduction.
[2018-07-18] VITALS (18 sets, daily range): BP systolic 96–117; BP diastolic 51–78; O2SAT 89–95
[2018-07-18] MEDS: IPRATROPIUM 0.5MG/ALBUTEROL 2.5MG INH SOL UD 3ML (DUONEB)(J7620) NEB SCH ×4 (01:56→20:00)
[2018-07-18] MEDS: LEVOTHYROXINE 25MCG TABLET (0.025MG) PO SCH (05:20)
[2018-07-18] MEDS: PERCOCET 5MG/325MG TAB PO PRN ×3 (05:21→20:55)
[2018-07-18 06:31] LABS: HEMATOCRIT 31.5 % (42.0-52.0); HEMOGLOBIN 9.6 g/dl (13.5-17.5); MEAN CORPUSCULAR HEMOGLOBIN 28.7 pg (27.0-33.0); MEAN CORPUSCULAR HGB CONC 30.5 g/dl (32.0-36.5); PLATELET COUNT, AUTOMATED 176 10^3/uL (150-450); RED BLOOD COUNT 3.35 10^6/uL (4.30-6.10); WHITE BLOOD COUNT 7.8 10^3/uL (4.0-10.0)
[2018-07-18 06:57] LABS: ALBUMIN 3.1 GM/DL (3.2-5.2); CALCIUM LEVEL 8.4 MG/DL (8.8-10.2); CREATININE FOR GFR 2.91 MG/DL (0.70-1.30); GLOMERULAR FILTRATION RATE 22.7 (>42); POTASSIUM SERUM 3.7 MEQ/L (3.5-5.1); TOTAL PROTEIN 6.9 GM/DL (6.4-8.2)
[2018-07-18] MEDS: HumaLOG INSULIN (NovoLOG) PER UNIT SC SCH ×4 (09:06→20:56)
[2018-07-18] MEDS: FUROSEMIDE 100 MG/10 ML VIAL (J1940) IV SCH ×2 (09:06→17:15)
[2018-07-18] MEDS: GABAPENTIN 100 MG CAP PO SCH ×3 (09:07→20:54)
[2018-07-18] MEDS: CitaloPRAM (CeleXA) 10 MG TABLET PO SCH (09:07)
--- NOTE | 2018-07-18 12:56 | REP ---
Followup pleural effusion. COMPARISON: Multiple, the latest 07/17/2018 at 12:32 a.m. Allowing for the differences in technique the right pleural effusion is probably unchanged. The cardiomediastinal silhouette is unchanged accentuated by the portable technique. No acute patchy parenchymal opacities or pleural effusions have developed. The single chamber bipolar pacemaker device is unchanged. The osseous structures are unchanged. IMPRESSION: No significant change when compared to the prior exam when the technical differences between the examinations are taken into consideration as described above. Electronically Signed by Tacho Camacho DO 07/18/2018 12:57 P
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
[2018-07-18] MEDS: VITAMIN D 1,000 INTERNATIONAL UNITS TABLET PO SCH (20:54)
[2018-07-18] MEDS: OMEPRAZOLE 20 MG CAP PO SCH (20:54)
[2018-07-18] MEDS: FEBUXOSTAT 40 MG TABLET (ULORIC) PO SCH (20:54)
[2018-07-18] MEDS: ASPIRIN 81 MG ENTERIC TAB PO SCH (20:54)
[2018-07-18] MEDS: FINASTERIDE 5 MG TAB PO SCH (20:54)
[2018-07-18] MEDS: CLOPIDOGREL 75 MG TAB PO SCH (20:55)
[2018-07-18] MEDS: TAMSULOSIN 0.4 MG CAP PO SCH (20:55)
[2018-07-18] MEDS: DULoxetine 20 MG CAP (CYMBALTA) PO SCH (20:55)
[2018-07-19] VITALS (25 sets, daily range): BP systolic 95–114; BP diastolic 54–76; O2SAT 91–100
[2018-07-19] MEDS: FUROSEMIDE 100 MG/10 ML VIAL (J1940) IV SCH ×3 (00:07→16:18)
[2018-07-19] MEDS: IPRATROPIUM 0.5MG/ALBUTEROL 2.5MG INH SOL UD 3ML (DUONEB)(J7620) NEB SCH ×4 (02:00→20:17)
[2018-07-19] MEDS ORDERED: SLF 3 ML SYR IV PRN (02:45)
[2018-07-19 05:29] LABS: HEMATOCRIT 32.1 % (42.0-52.0); HEMOGLOBIN 9.9 g/dl (13.5-17.5); MEAN CORPUSCULAR HEMOGLOBIN 28.6 pg (27.0-33.0); MEAN CORPUSCULAR HGB CONC 30.8 g/dl (32.0-36.5); MEAN CORPUSCULAR VOLUME 92.8 fl (80.0-96.0); PLATELET COUNT, AUTOMATED 182 10^3/uL (150-450); RED BLOOD COUNT 3.46 10^6/uL (4.30-6.10); WHITE BLOOD COUNT 7.3 10^3/uL (4.0-10.0)
[2018-07-19 05:44] LABS: ALBUMIN 3.1 GM/DL (3.2-5.2); BILIRUBIN,TOTAL 1.2 MG/DL (0.2-1.0); CALCIUM LEVEL 8.6 MG/DL (8.8-10.2); CREATININE FOR GFR 2.63 MG/DL (0.70-1.30); GLOMERULAR FILTRATION RATE 25.5 (>42); POTASSIUM SERUM 4.1 MEQ/L (3.5-5.1); TOTAL PROTEIN 7.1 GM/DL (6.4-8.2)
[2018-07-19] MEDS: LEVOTHYROXINE 25MCG TABLET (0.025MG) PO SCH (05:46)
[2018-07-19] MEDS: SLF 3 ML SYR IV SCH ×3 (05:47→22:00)
[2018-07-19] MEDS: PERCOCET 5MG/325MG TAB PO PRN ×2 (05:48→12:00)
--- NOTE | 2018-07-19 08:29 | REP ---
Clinical: Pleural effusion. Technique: PA and lateral. Comparison: 07/18/2018. Findings: [id number] right pleural effusion appears minimally decreased when compared to prior examination. The mediastinum and cardiac silhouette remains stable with mild cardiomegaly again suggested. Lung schafer demonstrate increased chronic-appearing interstitial changes. Perihilar/infrahilar atelectasis cannot be excluded. No pneumothorax. Skeletal structures intact. Evidence for prior sternotomy and CABG. Stable single lead pacemaker. Impression: 1. [id number] right pleural effusion may be slightly decreased when compared to prior examination. 2. Stable cardiomegaly. 3. Lung schafer demonstrate chronic changes although perihilar/infrahilar atelectasis versus pulmonary vascular congestion cannot be excluded. Electronically Signed by Marcus Cervantes MD 07/19/2018 08:21 A
[2018-07-19] MEDS: HumaLOG INSULIN (NovoLOG) PER UNIT SC SCH ×4 (09:06→20:59)
[2018-07-19] MEDS: CitaloPRAM (CeleXA) 10 MG TABLET PO SCH (09:08)
[2018-07-19] MEDS: GABAPENTIN 100 MG CAP PO SCH ×3 (09:08→20:34)
[2018-07-19] MEDS: EUCERIN 120GM CREAM TOP SCH ×2 (11:20→20:35)
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
--- NOTE | 2018-07-19 15:13 | IPN ---
DATE OF VISIT: 07/17/2018 Mr. Morejon is seen this morning on his bedside. He is sitting in the chair at the time of my visit. He has significant cough but denies any hemoptysis or pleuritic type of chest pain. He has been short of breath. Nursing staff reports that he did receive intravenous (IV) Lasix earlier, 60 mg and did urinate about 300 mL since then. He has known history of severe congestive heart failure with ejection fraction, which is significantly diminished. He also has history of right-sided pleural effusion, which is chronic. On physical exam, temperature 97.6 degrees Fahrenheit, heart rate 102 per minute and respiratory rate 20 per minute. Blood pressure 98/62 mmHg and oxygen saturation 95%. His head is atraumatic. There is no oral thrush or ulcers. Pupils equal and reactive to light. Neck is supple and jugular venous distention (JVD) is difficult to be assessed sitting upright. Heart sounds are tachycardiac and irregular. Lungs have markedly diminished breath sounds at right lower half. Left side sounds much clear. Abdomen is soft and nontender and bowel sounds are present. Extremities have no cyanosis or clubbing. Neurologically, he is awake and without a focal deficit. Today's labs show WBC count 10.8, hemoglobin 11.0 and hematocrit 35.3. Platelets 232. Sodium 132, potassium 5.1, chloride 94, CO2 of 30, BUN 82 and creatinine 3.23. Glucose 176 and calcium 8.9. PROBLEMS: 1. Acute renal failure superimposed on chronic kidney disease. It seems to me that patient has advanced stage IV of chronic kidney disease even at baseline. His acute renal failure is related to cardiorenal syndrome. At this point, there is no emergent need for dialysis. However, his long-term prognosis remains guarded. I will discuss with his family about options. 2. Hyperkalemia related to acute renal failure and patient was treated with Veltassa yesterday. He is also receiving IV diuretic, which is likely to help. His hyperkalemia has already improved. 3. Hyponatremia. This is stable and related to congestive heart failure and acute renal failure. We will continue our efforts to diurese him. 4. Acute on chronic systolic congestive heart failure. Patient is currently on dobutamine drip. He is not diuresing very well but he is diuresing at least enough to have slight negative fluid balance. We will continue dobutamine drip for now. I will also consider IV Lasix drip if his condition does not improve. 5. Anemia. His anemia is mild and stable and does not need any intervention. 6. Cough and pleural effusion. I would suggest thoracentesis and also broad-spectrum antibiotic coverage. A final decision will be by the hospitalist service.
--- NOTE | 2018-07-19 17:45 | IPN ---
DATE: 07/18/2018 Mr. Morejon is seen this morning on his bedside. He is sitting at the edge of bed. He reports cough and shortness of breath. In addition he is also very weak. He has no fever or chills. He remains on intravenous dobutamine drip and intermittent intravenous Lasix every 6 hours. He diuresed only mildly yesterday with negative fluid balance of 300 mL. PHYSICAL EXAMINATION: Temperature is 97.7 degrees Fahrenheit, heart rate 118 per minute, respiratory rate 22 per minute, blood pressure of 96/78 mm of mercury, and oxygen saturation 93%. His head is atraumatic. Neck is supple, and jugular venous distention (JVD) is difficult to be assessed sitting upright. Lungs have diminished breath sounds at right lower half and bibasilar crepitations. Heart sounds are tachycardiac and distant. Abdomen is soft and nontender, and bowel sounds are normal. Extremities have no cyanosis or clubbing. Lower extremity edema is 1+. Neurologically, he is awake and at his baseline mentation. Today's labs show WBC count 7.8, hemoglobin 9.6, hematocrit 31.5, platelets 176. Sodium 133, potassium 3.7, chloride 93, CO2 of 30, BUN 75, and creatinine 2.91. Glucose 231 and calcium 8.4. His chest x-ray was reviewed independently, which showed no significant change in right pleural effusion, which is about moderate in size. He has significant cardiomegaly. PROBLEMS: 1. Acute on chronic systolic congestive heart failure. The patient has known history of severe systolic dysfunction. He remains on dobutamine drip and intravenous (IV) Lasix with mild negative fluid balance. We will continue to diurese him as much as we can. 2. Hyperkalemia. Hyperkalemia has corrected, and potassium level is now trending downward. He is likely to require potassium supplement. We will see how his electrolytes are tomorrow. 3. Right-sided pleural effusion. The patient has had a chest tube in the past. He is likely to require some kind of drainage procedure, either with thoracentesis or with a PleurX catheter. 4. Hyponatremia is mild and stable and related to congestive heart failure and advanced chronic kidney disease. His electrolytes are being monitored on a daily basis. 5. Acute renal failure superimposed on chronic kidney disease. His kidney function is more or less stable with GFR between 18-22 mL. I do not feel that he will make a good dialysis candidate in view of his severe cardiomyopathy and multiple comorbid conditions. At this point we are watching him closely, and there is no emergent indication for dialysis. If his right pleural effusion can be corrected with PleurX catheter, then likely he will improve.
[2018-07-19] MEDS: DOBUTamine HCL 500,000 MCG in APPROPRIATE DILUENT 1 EA IV SCH (18:55)
--- NOTE | 2018-07-19 19:35 | IPN ---
DATE: 07/18/2018 Mr. Morejon has just come back from x-ray and is sitting comfortably in a wheelchair. He states that he is breathing all right, although he complains of fatigue and being overall tired. He says his throat feels a bit better today. His vital signs show a maximum temperature (T max) of 98.5 with a heart rate that ranges between 109 and 115, in atrial fibrillation. Respiratory rate is 18 to 22 without the use of accessory muscles. He is 90 to 93% saturated on 2 liters nasal cannula. His intake and output over the past 24 hours has been recorded as 1347 in and 1647 out for a negativity of 300 mL. He weighs 70.1 kg today compared to 69.8 kg yesterday. On physical examination, his lungs show dullness to percussion half way up the right side. Left side shows a full percussion note. He has nearly normal vesicular sounds on the left with some inspiratory rales at the very end of inspiration. On the right, he has markedly decreased breath sounds at the base and half way up. His cardiac exam shows a soft systolic murmur heard best at the left lower sternal border. His point of maximum impulse (PMI) is in the midclavicular line in the sixth intercostal space as he is sitting up. S1, S2 are normal. He has an irregular rate and rhythm. Abdomen is soft and nontender but tympanitic and distended. Bowel sounds are positive. There is no hepatomegaly. No costovertebral angle (CVA) tenderness. Extremities still show 2+ pretibial edema. No differential swelling of the upper extremities. Skin is warm, dry and perfused without cyanosis or mottling, including that of the nail beds and the knees. Neck is without jugular venous distention. No subcutaneous emphysema. Trachea is midline. Eyes show his pupils to be equal and reactive. Extraocular motions intact. Sclerae anicteric. Neurologic shows II-XII intact along with gross motor and gross sensation intact. Gait is not tested. Psychiatric shows him to be awake and alert, oriented times three with appropriate mood and affect and conversational. His white count today is down to 7.8 with a hemoglobin and hematocrit of 9.6 and 31.5, decreased from 11.0 and 35.3 yesterday. There is no differential. Electrolytes show a marginally low sodium of 133 and a potassium of 3.7. Creatinine is 2.91. Glucose is 231 with a calcium of 8.4. Corresponding albumin is 3.1. I do note that he has put out 1400 mL in urine output, which is better than the rest of his time in his prior days here. His chest x-ray done with a proper PA and lateral view shows an increase in the pleural effusion over his chest x-ray of 07/16/2018. The lateral chest x-ray shows more fluid having accumulated now a third of the way up the chest. Other than that, the lung is fully expanded to the chest wall. IMPRESSION: 1. Recurrent right pleural effusion secondary to heart failure. 2. Systolic heart failure with an ejection fraction of 20%. 3. Rib fracture, simple, 8 and 9 on the right. 4. Renal failure. 5. Right heart failure. 6. Diabetes. 7. Hypothyroidism. 8. Hypertension. 9. Coronary artery disease. 10. Unstable sternum pretrauma from coronary bypass grafting procedure. PLAN AND DISCUSSION: I am going to talk to social service assistant tomorrow to see if he can handle a PleurX catheter. His BUN and creatinine are down, and I think that he needs to be diuresed even more. I sure would like to see this being controlled by use of medical therapy. Right now, he is not symptomatic. He states that he is breathing well. I do suspect that if the fluid is removed, he would breathe even better. As noted before, he has a double risk of severe heart failure and renal insufficiency. LOGAN
--- NOTE | 2018-07-19 20:21 | IPN ---
DATE: 07/19/2018 Mr. Morejon is seen this morning on his bedside. He is sitting in the chair, and his friend is visiting. The patient continues to have cough and shortness of breath. He denies any nausea or vomiting. He remains on dobutamine drip and intravenous Lasix with mild to moderate negative fluid balance. A repeat chest x-ray was done which showed right-sided pleural effusion, essentially unchanged. He has been seen by Dr. Keen and is likely to require another drainage procedure for his right pleural effusion. PHYSICAL EXAMINATION: Temperature 98.6 degrees Fahrenheit, heart rate 110 per minute and respiratory rate 20 per minute. Blood pressure 114/67 mmHg and oxygen saturation 93% on room air. Intake and output records from yesterday show a negative fluid balance of only 354 mL. The patient's head is atraumatic. Neck is supple and jugular venous distention (JVD) is not elevated sitting upright. His lungs have diminished breath sounds at the right lower half. Basilar rales are audible on the left side. Heart sounds are tachycardiac and irregular. Abdomen soft and nontender and extremities have no cyanosis or clubbing. Lower legs have 1+ edema. Today's labs show sodium 131, potassium 4.1, CO2 of 31, BUN 84 and creatinine 2.63. Calcium level 8.6 and albumin 3.1. WBC count is 7.3, hemoglobin 9.9 and hematocrit 32.1. Platelets 182. PROBLEMS: 1. Acute renal failure superimposed on chronic kidney disease. Slight improvement in kidney function over last 24 hours noted. The patient has no uremic symptoms, and we will continue to monitor his kidney function on a daily basis. He is currently being diuresed with intravenous dobutamine drip and intermittent dose of Lasix. 2. Hyponatremia. Slightly worse compared with yesterday but overall has been stable with sodium level between 131 and 133. At this point, we are diuresing him, which is most likely cause of his hyponatremia in addition to congestive heart failure. His electrolytes will be checked again tomorrow. 3. Right pleural effusion. The patient is likely to require a drainage procedure, and I have been informed by the house staff that Dr. Keen is planning to put a PleurX catheter tomorrow, which will be very helpful. At this point, we will continue to diurese him with intravenous Lasix and dobutamine.
[2018-07-19] MEDS: VITAMIN D 1,000 INTERNATIONAL UNITS TABLET PO SCH (20:34)
[2018-07-19] MEDS: OMEPRAZOLE 20 MG CAP PO SCH (20:34)
[2018-07-19] MEDS: TAMSULOSIN 0.4 MG CAP PO SCH (20:34)
[2018-07-19] MEDS: CLOPIDOGREL 75 MG TAB PO SCH (20:34)
[2018-07-19] MEDS: ASPIRIN 81 MG ENTERIC TAB PO SCH (20:34)
[2018-07-19] MEDS: FEBUXOSTAT 40 MG TABLET (ULORIC) PO SCH (20:34)
[2018-07-19] MEDS: DULoxetine 20 MG CAP (CYMBALTA) PO SCH (20:34)
[2018-07-19] MEDS: CYCLOBENZAPRINE 5MG TABLET PO PRN (20:48)
[2018-07-19] MEDS: hydrOXYzine 25 MG TAB PO PRN (20:51)
[2018-07-19] MEDS: FINASTERIDE 5 MG TAB PO SCH (21:17)
--- NOTE | 2018-07-19 21:52 | IPN ---
DATE: 07/19/2018 Mr. Morejon is coughing up lots of sputum. He was able to do a little bit of walking in his room yesterday, but it is pretty clear that he is not able to go home being so deconditioned. He tells me he is not having any trouble breathing. His vital signs show a maximum temperature (T max) of 98.9 with a heart rate that ranges between 110 and 106, in a sinus rhythm, respiratory rate of 18 to 20 without the use of accessory muscles who is 94 to 100% saturated now on room air. Blood pressure is ranging between 103/59 to 97/61. His intake and output over the past 24 hours has been recorded as 1632 in and 1986 out for a negativity of 354 mL. He has put out 1750 mL in urine output, which is the best we have had over his hospitalization. He still weighs 70.1 kg, which is unchanged from yesterday. On physical examination, he has coarse rhonchi and rales throughout the respiratory cycle. Breath sounds are diminished in the right lower hemithorax with a dull percussion note in the right lower hemithorax. Cardiac exam shows a soft systolic murmur heard best at the second and third upper interspaces on the left and right side. His point of maximum impulse (PMI) is in the midclavicular line at the sixth intercostal space, and he has an unstable sternum. S1, S2 are normal. Abdomen is soft and nontender. Bowel sounds are positive. There is no hepatomegaly. No costovertebral angle (CVA) tenderness. Extremities show no pretibial edema. No calf tenderness. His ankles, however, are swollen. There is no differential swelling of the upper extremities. Skin is warm, dry and perfused without cyanosis or mottling, including that of the nail beds and the knees. Neck is supple. There is no jugular venous distention, no subcutaneous emphysema. Trachea is midline. Mouth shows his mucous membranes to be pink and moist. Lips and commissures without lesions. There is no thrush. Eyes show his pupils to be equal and reactive. Extraocular motions intact. Sclerae anicteric. Neurologic shows II-XII intact along with gross motor and gross sensation intact. Gait is not tested. Psychiatric shows him to be awake and alert, oriented times three with appropriate mood and affect and conversational. His white count is 7.3 with a hemoglobin and hematocrit of 9.9 and 32.1 with a platelet count of 182. There was no differential. Chemistry shows a sodium of 131 with a BUN and creatinine of 84 and 2.63. Glucose is 155 with a calcium of 8.6 and a corresponding albumin of 3.1. His chest x-ray today is essentially unchanged from yesterday's with regard to the fluid. It is certainly no worse. I could image that the lateral film is slightly better but probably not. IMPRESSION: 1. Recurrent right pleural effusion secondary to heart failure. 2. Systolic heart failure with ejection fraction of 20%. 3. Rib fractures, simple, 8 and 9 on the right. 4. Renal failure. 5. Right heart failure. 6. Diabetes. 7. Hypothyroidism. 8. Hypertension. 9. Coronary artery disease. 10. Unstable sternum pretrauma from coronary bypass grafting procedure. 11. Deconditioning. I have had a heart to heart talk with Mr. Morejon and he is now open to going to a rehab center for reconditioning. I have, therefore, spoken with patient and family services, and they will start trying to find placement for him. As his fluid is not any worse, and he is not being symptomatic, I am going to defer placing a PleurX catheter. We need to continue to monitor his chest x-rays.
[2018-07-20] VITALS (23 sets, daily range): BP systolic 99–124; BP diastolic 52–66; O2SAT 92–97
[2018-07-20] MEDS: IPRATROPIUM 0.5MG/ALBUTEROL 2.5MG INH SOL UD 3ML (DUONEB)(J7620) NEB SCH ×4 (02:00→20:00)
[2018-07-20] MEDS: LEVOTHYROXINE 25MCG TABLET (0.025MG) PO SCH (05:14)
[2018-07-20] MEDS: SLF 3 ML SYR IV SCH ×3 (05:14→21:16)
[2018-07-20 05:39] LABS: HEMATOCRIT 29.4 % (42.0-52.0); HEMOGLOBIN 9.3 g/dl (13.5-17.5); MEAN CORPUSCULAR HEMOGLOBIN 28.4 pg (27.0-33.0); MEAN CORPUSCULAR HGB CONC 31.6 g/dl (32.0-36.5); MEAN CORPUSCULAR VOLUME 89.6 fl (80.0-96.0); PLATELET COUNT, AUTOMATED 177 10^3/uL (150-450); RED BLOOD COUNT 3.28 10^6/uL (4.30-6.10); WHITE BLOOD COUNT 6.4 10^3/uL (4.0-10.0)
[2018-07-20 05:53] LABS: ALBUMIN 2.7 GM/DL (3.2-5.2); BILIRUBIN,TOTAL 0.9 MG/DL (0.2-1.0); CALCIUM LEVEL 8.4 MG/DL (8.8-10.2); CREATININE FOR GFR 2.65 MG/DL (0.70-1.30); GLOMERULAR FILTRATION RATE 25.3 (>42); TOTAL PROTEIN 6.2 GM/DL (6.4-8.2)
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
[2018-07-20] MEDS: CitaloPRAM (CeleXA) 10 MG TABLET PO SCH (08:38)
[2018-07-20] MEDS: GABAPENTIN 100 MG CAP PO SCH ×3 (08:38→21:15)
[2018-07-20] MEDS: FUROSEMIDE 100 MG/10 ML VIAL (J1940) IV SCH ×2 (08:38)
[2018-07-20] MEDS: PERCOCET 5MG/325MG TAB PO PRN (08:39)
--- NOTE | 2018-07-20 08:39 | REP ---
Clinical: Follow up pleural effusion. Technique: PA and lateral. Comparison: 07/19/2018. Findings: Right lower lobe opacity and moderate pleural effusion essentially unchanged. No new obvious acute process identified. Mediastinum and cardiac silhouette are stable. The skeletal structures are intact. Evidence of prior sternotomy and CABG. Impression: Right lower lobe opacity and moderate right pleural effusion similar to prior examination. No obvious new acute process. Electronically Signed by Marcus Cervantes MD 07/20/2018 08:31 A
[2018-07-20] MEDS: EUCERIN 120GM CREAM TOP SCH ×2 (08:40→21:00)
[2018-07-20] MEDS: HumaLOG INSULIN (NovoLOG) PER UNIT SC SCH ×4 (08:40→21:00)
[2018-07-20] MEDS: FUROSEMIDE injection 250 MG in D5W 225 ML IV SCH (11:05)
--- NOTE | 2018-07-20 15:10 | IPN ---
DATE: 07/20/2018 Mr. Morejon is seen this morning on his bedside. He is sitting in the chair as usual and continues to cough. He tells me that Dr. Keen was in this morning and told him that there is no plan for a PleurX catheter at this point and the patient should continue with his current medical care. The patient denies any nausea, vomiting, fever or chills. PHYSICAL EXAMINATION: Temperature 98.3 degrees Fahrenheit, heart rate 109 per minute and respiratory rate 18 per minute. Blood pressure 109/52 mmHg and oxygen saturation 95% on room air. Intake and output records from yesterday show a total intake 1000 and output 1500 mL. His head is atraumatic and neck veins are not abnormally distended sitting upright. There is no oral thrush or ulcers. His neck is supple and there is no thyroid enlargement. Heart sounds are tachycardiac with a systolic murmur which is essentially unchanged. Lungs have diminished breath sounds at the bases and bibasilar rales. Abdomen is soft and nontender and bowel sounds are normal. Extremities have no cyanosis or clubbing. Lower extremity edema is still 1+. Neurologically, he is awake, at his baseline mentation and without a focal deficit. LABORATORY DATA: Today's laboratories show WBC count 6.4, hemoglobin 9.3 and hematocrit 29.4. Platelets 177. Sodium 132, potassium 4.0, CO2 27, BUN 80 and creatinine 2.65. Calcium is 8.4, total protein 6.2 and albumin 2.7. PROBLEMS: 1. Acute on chronic systolic congestive heart failure. The patient remains on dobutamine drip with mild negative fluid balance. He does have recurrent large pleural effusion on the right side for which Dr. Keen does not feel that a PleurX catheter is needed. We will continue our efforts to diurese him while he is here. I am going to switch him to intravenous Lasix drip instead of intermittent Lasix and continue with dobutamine drip for another 24-48 hours. 2. Acute renal failure, superimposed on chronic kidney disease. Mild fluctuations but kidney function is overall stable over the last 24 hours. No uremic symptoms and we will continue to monitor his kidney function on a daily basis. 3. Hyponatremia. This is mild and stable hyponatremia due to advanced congestive heart failure and chronic kidney disease. We will continue with diuretics for now while monitoring his electrolytes on a daily basis.
--- NOTE | 2018-07-20 15:34 | IPN ---
DATE: 07/20/2018 Mr. Morejon is sitting up comfortably in a chair. He tells me he is not having any trouble breathing. Actually he says he is feeling much better today. His vital signs show a T-max of 98.6 with a heart rate that ranges between 108 and 113 in a sinus rhythm, respiratory rate of 20 to 18 without the use of accessory muscles who is 95% saturated on room air and his blood pressure is ranging between 109/52 to 124/66. His intake and output for the past 24 hours has been recorded as 1632 in and 1986 out for a negativity of 350 mL. He has had 1135 mL out in urine. His weight today is 138.8 kg. I think that is probably wrong as that is probably pounds as his weight yesterday was 70.1 kg. On physical examination he has decreased breath sounds in the right lower base. He has diffuse rales and rhonchi throughout, more on inspiration than expiration, however, today. Percussion note is full to the diaphragm on the left. Dullness to percussion at the right base. Cardiac exam shows a systolic murmur at the right and left sternal upper borders progressing down the left sternal border. His point of maximal impulse (PMI) is at the 6th intercostal space when he is sitting up. His sternum is unstable. S1 and S2 are normal. He is in tachycardia, but with a regular rate and rhythm. Abdomen is soft and nontender, but tympanitic and slightly distended. There is no hepatomegaly. No costovertebral angle (CVA) tenderness. Extremities show 2+ pretibial edema. No calf tenderness. No differential swelling of the upper extremities. Skin is warm, dry and perfused without cyanosis or mottling including that of the nail beds and the knees. Neck is supple. There is no jugular venous distention. No subcutaneous emphysema. Trachea is midline. Mouth shows his mucous membranes to be pink and moist. Lips and commissures without lesions. There is no thrush. Eyes show his pupils to be equal and reactive. Extraocular muscles intact. Sclera anicteric. Neuro shows II through XII intact. Gross motor and gross sensation intact. Gait is not tested. Psychiatric shows him to be awake, alert and oriented times three with appropriate mood, affect and conversational. His white count today is 6.4 with hemoglobin and hematocrit of 9.3 and 29.4 respectively and a platelet count of 177. There is no differential. Electrolytes show a sodium of 132 with a BUN and creatinine of 80 and 2.65, essentially unchanged from yesterday. Glucose is 108 with a calcium of 8.4 and a corresponding albumin of 2.7. Chest x-ray today is essentially unchanged from last few days. He has a right-sided pleural effusion. The effusion goes about a third of the way up the chest in the lateral film. He has pulmonary vessel plethora. IMPRESSION: 1. Recurrent right effusion secondary to heart failure. 2. Systolic heart failure with ejection fraction of 20%. 3. Rib fracture, simple, 8, 9 on the right. 4. Renal failure. 5. Right heart failure. 6. Diabetes. 7. Hypothyroidism. 8. Hypertension. 9. Coronary artery disease. 10. Unstable sternum. Trauma from coronary bypass grafting procedure. 11. Deconditioning. PLAN AND DISCUSSION: I do not have any followup from psychosocial services with regard to his placement. I spoke with him yesterday and they are looking for one. He states that he is breathing well and is essentially asymptomatic at least at rest. I am again loathe to place a PleurX unless we absolutely have to and I will therefore, desist from such. So long as his heart failure can be kept under control and his pleural effusion not increasing, I will again withdraw from the case.
[2018-07-20] MEDS: hydrOXYzine 25 MG TAB PO PRN (16:47)
[2018-07-20] MEDS: CLOPIDOGREL 75 MG TAB PO SCH (21:15)
[2018-07-20] MEDS: DULoxetine 20 MG CAP (CYMBALTA) PO SCH (21:15)
[2018-07-20] MEDS: FEBUXOSTAT 40 MG TABLET (ULORIC) PO SCH (21:15)
[2018-07-20] MEDS: OMEPRAZOLE 20 MG CAP PO SCH (21:15)
[2018-07-20] MEDS: ASPIRIN 81 MG ENTERIC TAB PO SCH (21:15)
[2018-07-20] MEDS: TAMSULOSIN 0.4 MG CAP PO SCH (21:15)
[2018-07-20] MEDS: VITAMIN D 1,000 INTERNATIONAL UNITS TABLET PO SCH (21:15)
[2018-07-20] MEDS: FINASTERIDE 5 MG TAB PO SCH (21:15)
[2018-07-21] VITALS (15 sets, daily range): BP systolic 94–103; BP diastolic 57–65; O2SAT 83–96
[2018-07-21] MEDS: IPRATROPIUM 0.5MG/ALBUTEROL 2.5MG INH SOL UD 3ML (DUONEB)(J7620) NEB SCH ×4 (02:00→20:44)
[2018-07-21 05:28] LABS: MAGNESIUM LEVEL 1.9 MG/DL (1.8-2.4)
[2018-07-21] MEDS: LEVOTHYROXINE 25MCG TABLET (0.025MG) PO SCH (05:42)
[2018-07-21] MEDS: SLF 3 ML SYR IV SCH ×3 (05:42→21:24)
[2018-07-21] MEDS: CitaloPRAM (CeleXA) 10 MG TABLET PO SCH (08:08)
[2018-07-21] MEDS: HumaLOG INSULIN (NovoLOG) PER UNIT SC SCH ×4 (08:08→21:00)
[2018-07-21] MEDS: GABAPENTIN 100 MG CAP PO SCH ×3 (08:08→21:22)
[2018-07-21] MEDS: EUCERIN 120GM CREAM TOP SCH ×2 (08:14→21:00)
--- NOTE | 2018-07-21 08:22 | REP ---
Clinical: Follow up pleural effusion. Technique: PA and lateral. Comparison: 07/20/2018. Findings: Mediastinum and cardiac silhouette are stable. The lung schafer are essentially unchanged. Perihilar and basilar atelectasis along with moderate right pleural effusion are again identified. No obvious pneumothorax. Skeletal structures intact. Impression: No significant change from prior examination. Moderate right pleural effusion and bibasilar opacities again noted. Electronically Signed by Marcus Cervantes MD 07/21/2018 08:13 A
[2018-07-21 08:26] LABS: CALCIUM LEVEL 8.7 MG/DL (8.8-10.2); CREATININE FOR GFR 2.61 MG/DL (0.70-1.30); GLOMERULAR FILTRATION RATE 25.7 (>42); PHOSPHORUS LEVEL 4.1 MG/DL (2.5-4.9); POTASSIUM SERUM 3.9 MEQ/L (3.5-5.1)
[2018-07-21] MEDS: FUROSEMIDE injection 250 MG in D5W 225 ML IV SCH (10:33)
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
--- NOTE | 2018-07-21 15:24 | IPN ---
DATE: 07/21/2018 Mr. Morejon is seen this morning on his bedside. He is sitting in the chair and looks quite tired. He is being diuresed with intravenous Lasix drip and also has been on intravenous dobutamine drip since admission. He has known history of severe systolic congestive heart failure and recurrent right pleural effusion. He has been seen by Dr. Keen who did not feel that a surgical intervention for right pleural effusion is needed at this point. The patient has recurrent history of acute on chronic renal failure. However, kidney function has improved every time and has not required dialysis. PHYSICAL EXAMINATION: Temperature 98.1 degrees Fahrenheit, heart rate 110 per minute and respiratory rate 20 per minute. Blood pressure 103/64 mmHg and oxygen saturation 93% on room air. Intake and output records from yesterday show a total intake 1222 and output 1925 mL with a negative balance of about 703. His weight is inaccurate. His head is atraumatic. There is no oral thrush or ulcers. Neck veins are not abnormally distended sitting upright. Lungs have markedly diminished breath sounds at the right lower half and basilar rales present on the left side. Heart sounds are irregular in rhythm and without a pericardial friction rub. Abdomen is soft and nontender and bowel sounds are normal. Extremities have no cyanosis or clubbing. Lower extremity edema is at least 1. Neurologically, he is awake and at his baseline mentation without a focal neurological deficit. LABORATORY DATA: Today's laboratories show sodium level 131, potassium 3.9, CO2 of 29, BUN 84 and creatinine 2.61. Glucose 173 and calcium 8.7. PROBLEMS: 1. Acute on chronic renal failure. Slight improvement noted in kidney function again today and the patient will continue with diuresis and dobutamine. I do not feel that he is a great candidate for dialysis due to chronic hypotension and severely reduced left ventricular systolic function. At this point, he is responding to diuretics and kidney function is slowly improved so we are not concerned about potential dialysis issue at this point. 2. Acute on chronic systolic congestive heart failure. The patient remains decompensated but he is slowly responding to intravenous Lasix and dobutamine drip. We will continue with the same and try to achieve a negative fluid balance. 3. Hyponatremia. This is chronic and related to congestive heart failure and acute renal failure. At this point, we will continue our efforts to diurese him and monitor his electrolytes on a daily basis. There has been no trend for his sodium and it has been stable between 131 and 133. 4. Recurrent right pleural effusion. This is a chronic issue and is related to congestive heart failure. We are continuing to diurese him. Dr. Keen did not feel that patient is in need for a chest tube or a PleurX catheter. 5. Anemia. There was no complete blood count (CBC) today and I would suggest to correct his CBC periodically. He does have anemia related to acute on chronic renal failure.
[2018-07-21] MEDS: OMEPRAZOLE 20 MG CAP PO SCH (21:22)
[2018-07-21] MEDS: FINASTERIDE 5 MG TAB PO SCH (21:22)
[2018-07-21] MEDS: VITAMIN D 1,000 INTERNATIONAL UNITS TABLET PO SCH (21:22)
[2018-07-21] MEDS: FEBUXOSTAT 40 MG TABLET (ULORIC) PO SCH (21:22)
[2018-07-21] MEDS: ASPIRIN 81 MG ENTERIC TAB PO SCH (21:23)
[2018-07-21] MEDS: TAMSULOSIN 0.4 MG CAP PO SCH (21:23)
[2018-07-21] MEDS: DULoxetine 20 MG CAP (CYMBALTA) PO SCH (21:23)
[2018-07-21] MEDS: CLOPIDOGREL 75 MG TAB PO SCH (21:23)
[2018-07-21] MEDS ORDERED: FLEET ENEMA PR PRN (23:15)
[2018-07-22] VITALS (23 sets, daily range): BP systolic 92–131; BP diastolic 56–70; O2SAT 86–98
[2018-07-22] MEDS: IPRATROPIUM 0.5MG/ALBUTEROL 2.5MG INH SOL UD 3ML (DUONEB)(J7620) NEB SCH ×4 (01:32→20:44)
[2018-07-22] MEDS: SLF 3 ML SYR IV SCH ×3 (05:58→20:49)
[2018-07-22] MEDS: LEVOTHYROXINE 25MCG TABLET (0.025MG) PO SCH (05:58)
[2018-07-22 06:01] LABS: ALBUMIN 2.7 GM/DL (3.2-5.2); CALCIUM LEVEL 8.5 MG/DL (8.8-10.2); CREATININE FOR GFR 2.27 MG/DL (0.70-1.30); GLOMERULAR FILTRATION RATE 30.2 (>42); MAGNESIUM LEVEL 1.8 MG/DL (1.8-2.4); PHOSPHORUS LEVEL 3.8 MG/DL (2.5-4.9); POTASSIUM SERUM 3.1 MEQ/L (3.5-5.1)
[2018-07-22] MEDS ORDERED: POTASSIUM CHLORIDE 10 MEQ SR TABLET PO ONE (07:00)
[2018-07-22] MEDS: HumaLOG INSULIN (NovoLOG) PER UNIT SC SCH ×4 (09:06→20:50)
[2018-07-22] MEDS: GABAPENTIN 100 MG CAP PO SCH ×3 (09:07→20:48)
[2018-07-22] MEDS: SPIRONOLACTONE 25 MG TAB PO SCH ×2 (09:07→17:29)
[2018-07-22] MEDS: CitaloPRAM (CeleXA) 10 MG TABLET PO SCH (09:07)
[2018-07-22] MEDS: EUCERIN 120GM CREAM TOP SCH ×2 (09:08→20:51)
--- NOTE | 2018-07-22 09:27 | REP ---
Clinical: Follow up pleural effusion. Comparison: 07/21/2018. Findings: Moderate right pleural effusion is again identified and similar to prior examination. Underlying right lower lobe infiltrate/atelectasis also suggested and essentially stable. Left hemithorax is relatively clear. The mediastinum and cardiac silhouette are stable. The skeletal structures are intact. Impression: Stable right pleural effusion and right lower lobe opacities. Electronically Signed by Marcus Cervantes MD 07/22/2018 09:19 A
[2018-07-22] MEDS: POTASSIUM CHLORIDE 10 MEQ SR TABLET PO SCH ×2 (10:09→20:47)
[2018-07-22] MEDS: FUROSEMIDE injection 250 MG in D5W 225 ML IV SCH (11:15)
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
[2018-07-22] MEDS: DOBUTamine HCL 500,000 MCG in APPROPRIATE DILUENT 1 EA IV SCH (12:20)
[2018-07-22] MEDS: FEBUXOSTAT 40 MG TABLET (ULORIC) PO SCH (20:47)
[2018-07-22] MEDS: OMEPRAZOLE 20 MG CAP PO SCH (20:47)
[2018-07-22] MEDS: DULoxetine 20 MG CAP (CYMBALTA) PO SCH (20:47)
[2018-07-22] MEDS: TAMSULOSIN 0.4 MG CAP PO SCH (20:47)
[2018-07-22] MEDS: VITAMIN D 1,000 INTERNATIONAL UNITS TABLET PO SCH (20:48)
[2018-07-22] MEDS: FINASTERIDE 5 MG TAB PO SCH (20:48)
[2018-07-22] MEDS: ASPIRIN 81 MG ENTERIC TAB PO SCH (20:48)
[2018-07-22] MEDS: PERCOCET 5MG/325MG TAB PO PRN (20:49)
[2018-07-22] MEDS: CLOPIDOGREL 75 MG TAB PO SCH (20:49)
[2018-07-23] VITALS (12 sets, daily range): BP systolic 94–102; BP diastolic 48–69; O2SAT 96–100
[2018-07-23] MEDS: IPRATROPIUM 0.5MG/ALBUTEROL 2.5MG INH SOL UD 3ML (DUONEB)(J7620) NEB SCH ×4 (01:57→20:46)
[2018-07-23] MEDS: SLF 3 ML SYR IV SCH ×3 (05:53→21:52)
[2018-07-23] MEDS: LEVOTHYROXINE 25MCG TABLET (0.025MG) PO SCH (05:53)
[2018-07-23 06:11] LABS: ALBUMIN 2.8 GM/DL (3.2-5.2); CALCIUM LEVEL 8.5 MG/DL (8.8-10.2); CREATININE FOR GFR 2.36 MG/DL (0.70-1.30); GLOMERULAR FILTRATION RATE 28.9 (>42); MAGNESIUM LEVEL 1.9 MG/DL (1.8-2.4); PHOSPHORUS LEVEL 3.4 MG/DL (2.5-4.9); POTASSIUM SERUM 4.5 MEQ/L (3.5-5.1)
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
--- NOTE | 2018-07-23 08:13 | REP ---
Clinical: Pleural effusion. Technique: PA and lateral. Comparison: 07/22/2018. Findings: Moderate right pleural effusion with passive atelectasis unchanged from prior examination. Mediastinum and cardiac silhouette stable. Left hemithorax is relatively well aerated and stable. No new acute process. No obvious pneumothorax. Skeletal structures intact. Impression: Moderate right pleural effusion and passive atelectasis unchanged. No obvious new acute process. Electronically Signed by Marcus Cervantes MD 07/23/2018 08:04 A
[2018-07-23] MEDS: POTASSIUM CHLORIDE 10 MEQ SR TABLET PO SCH ×2 (08:40→21:50)
[2018-07-23] MEDS: GABAPENTIN 100 MG CAP PO SCH ×3 (08:40→21:55)
[2018-07-23] MEDS: CitaloPRAM (CeleXA) 10 MG TABLET PO SCH (08:40)
[2018-07-23] MEDS: SPIRONOLACTONE 25 MG TAB PO SCH ×2 (08:40→16:34)
[2018-07-23] MEDS: HumaLOG INSULIN (NovoLOG) PER UNIT SC SCH ×4 (08:41→21:00)
[2018-07-23] MEDS: EUCERIN 120GM CREAM TOP SCH ×2 (08:41→21:52)
--- NOTE | 2018-07-23 09:18 | IPN ---
DATE OF SERVICE: 07/22/2018 Mr. Morejon actually walked outside the [facility] today from one end of the nurses station to the other. He is now sitting comfortably in the chair. He is not complaining of shortness of breath. His vital signs show a T-max of 97.5 with a heart rate that ranges between 121 and 111 in sinus rhythm, respiratory rate of 18-20 without the use of accessory muscles, who is 94-97% saturated on room air and has blood pressures ranging between 93/56 to 131/66. His intake and output over the past 24 hours has been recorded as 1222 in and 1925 out for a negativity of 700 mL. Oral intake has been 1080 mL and urine output has been 1175 mL. His weight today is 77 kg compared to 70 kg yesterday. On physical examination, he lungs show bilateral basilar crackles. There is decreased breath sounds along the right hemithorax with dull percussion of the right hemithorax at the base. There is no subcutaneous emphysema. I hear no wheezing. Cardiac exam shows a systolic murmur at the right and left sternal upper borders resting onto the left sternal border. PMI is in the sixth intercostal space as he is sitting. His sternum is unstable. S1 and S2 are normal. There is a tachycardia but with regular rate and rhythm. Abdomen is soft, nontender, bowel sounds are positive. There is no hepatomegaly. No CVA tenderness. He is slightly distended and tympanitic. Extremities show bilateral pretibial edema. No calf tenderness. No differential swelling of the upper extremities. Pretibial edema is greater between 2-3+. Skin is warm, dry and perfused without cyanosis or mottling including that of the nail beds and knees. Neck is supple. There is no jugular venous distention. No subcutaneous emphysema. Trachea is midline. Mouth shows his mucous membranes to be pink and moist. Lips and commissures are without lesions. No thrush. Eyes show his pupils to be equal and reactive. Extraocular motor intact. Sclera anicteric. Neuro shows II through XII intact with gross motor and gross sensation intact. Gait is not tested. Psychiatric shows him to be awake and alert, oriented times three with appropriate mood and affect and conversational. His white count today is 6.4 with hemoglobin and hematocrit of 9.3 and 29.4 down from 9.9 and 32.1 yesterday. Platelet count is 177. There is no differential. Electrolytes show a marginally low potassium at 3.1. BUN and creatinine are 82 and 2.37 slightly improved from yesterday. Glucose is 169 with a calcium of 8.5 and a corresponding albumin of 2.7. Phosphorus is 3.8 with a magnesium 1.8. His chest x-ray is essentially unchanged today. He still has the right pleural effusion and diffuse opacity in the right lower hemithorax. The lateral film also does not show any real appreciable change with fluid level being about a third of the way up. IMPRESSION: 1. Recurrent right effusion secondary to heart failure. 2. Systolic heart failure with ejection fraction of 20%. 3. Rib fracture simple 8 and 9 on the right. 4. Renal failure. 5. Right heart failure. 6. Diabetes. 7. Hypothyroidism. 8. Hypertension. 9. Coronary artery disease. 10. Unstable sternum prior to trauma from coronary artery bypass procedure. 11. Deconditioning. PLAN AND DISCUSSION: It looks as though his pleural effusion is stabilizing. It is not getting any worse but on the other hand, not getting any better. He is asymptomatic and therefore I will at this point withdraw from the case to follow him on an as needed basis. Should be become symptomatic or should the pleural effusion definitively become worse, I will see him again.
--- NOTE | 2018-07-23 09:50 | IPN ---
DATE OF VISIT: 07/22/2018 Mr. Morejon seen this morning on his bedside. He is sitting in the recliner chair today and feels better. He denies any nausea or vomiting. His dyspnea has improved, though he still has some peripheral edema. He has no fever or chills. His dobutamine dose has been cut down by the hospitalist and house staff, though he remains on low dose of dobutamine and also on intravenous (IV) Lasix drip. On physical exam, temperature 97.3 degrees Fahrenheit, heart rate 110 per minute and respiratory rate 18 per minute. Blood pressure 93/56 mmHg and oxygen saturation 97% on room air. His head is atraumatic. There is no oral thrush or ulcers. Neck veins are still about 15 cm above sternal angle and his neck is supple. Heart sounds are tachycardiac and irregular but without a pericardial friction rub. Lungs have bibasilar rales. Abdomen soft and nontender and without a palpable organomegaly. Bowel sounds are normal. Extremities have no cyanosis or clubbing. Lower extremity edema is still present bilaterally. Skin has no rash or ulcers. Today's labs show WBC count 6.4, hemoglobin 9.3 and hematocrit 29.4. Platelets 177. Sodium 133, potassium 3.1, CO2 29, BUN 82 and creatinine 2.27. Glucose is 169 and calcium 8.5. PROBLEMS: 1. Acute on chronic systolic congestive heart failure. Volume status remains decompensated. I have discussed with house staff and advised to keep the dobutamine drip running at least at 1 mcg/kg per minute and we will continue with IV Lasix drip at 10 mg per hour. Our goal is to diurese him at least 1 liter per day. Yesterday, he had a negative fluid balance of about 1600 mL and weight has come down to 72 kg. 2. Hypokalemia related to diuresis and decreased oral intake. Patient will be given 40 mEq potassium chloride now and then continue with 20 mEq three times a day. He is also going to be on spironolactone 25 mg twice a day and electrolytes will be checked on a daily basis. 3. Hyponatremia. Sodium level is slowly improving and stable. At this point, we will continue with aggressive diuresis and continue to monitor his electrolytes on daily basis. 4. Recurrent right pleural effusion related to congestive heart failure. No significant change or at least there is no increase in the pleural effusion. We will continue with our efforts to diurese him, which is likely to help with the improvement in his pleural effusion in the long-term. 5. Anemia. At this point, his anemia is stable and we will continue monitoring without any need for a transfusion. DISPOSITION: At this point, patient is not ready for discharge as he is still quite decompensated and needs further diuresis.
[2018-07-23] MEDS: FUROSEMIDE injection 250 MG in D5W 225 ML IV SCH (11:21)
[2018-07-23] MEDS: PERCOCET 5MG/325MG TAB PO PRN (14:20)
[2018-07-23] MEDS: OMEPRAZOLE 20 MG CAP PO SCH (21:49)
[2018-07-23] MEDS: CLOPIDOGREL 75 MG TAB PO SCH (21:50)
[2018-07-23] MEDS: FINASTERIDE 5 MG TAB PO SCH (21:50)
[2018-07-23] MEDS: TAMSULOSIN 0.4 MG CAP PO SCH (21:50)
[2018-07-23] MEDS: ASPIRIN 81 MG ENTERIC TAB PO SCH (21:50)
[2018-07-23] MEDS: DULoxetine 20 MG CAP (CYMBALTA) PO SCH (21:51)
[2018-07-23] MEDS: FEBUXOSTAT 40 MG TABLET (ULORIC) PO SCH (21:51)
[2018-07-23] MEDS: VITAMIN D 1,000 INTERNATIONAL UNITS TABLET PO SCH (21:51)
[2018-07-24] VITALS (7 sets, daily range): BP systolic 90–111; BP diastolic 60–73; O2SAT 8–95
[2018-07-24] MEDS: IPRATROPIUM 0.5MG/ALBUTEROL 2.5MG INH SOL UD 3ML (DUONEB)(J7620) NEB SCH ×4 (01:29→20:35)
[2018-07-24] MEDS: LEVOTHYROXINE 25MCG TABLET (0.025MG) PO SCH (05:08)
[2018-07-24] MEDS: SLF 3 ML SYR IV SCH ×3 (05:11→21:06)
[2018-07-24 06:27] LABS: ALBUMIN 2.8 GM/DL (3.2-5.2); CALCIUM LEVEL 8.6 MG/DL (8.8-10.2); CREATININE FOR GFR 2.3 MG/DL (0.70-1.30); GLOMERULAR FILTRATION RATE 29.7 (>42); MAGNESIUM LEVEL 1.9 MG/DL (1.8-2.4); PHOSPHORUS LEVEL 3.2 MG/DL (2.5-4.9); POTASSIUM SERUM 4.6 MEQ/L (3.5-5.1)
[2018-07-24] MEDS: HumaLOG INSULIN (NovoLOG) PER UNIT SC SCH ×4 (07:56→21:00)
[2018-07-24] MEDS: SPIRONOLACTONE 25 MG TAB PO SCH ×2 (08:14→16:34)
[2018-07-24] MEDS: CitaloPRAM (CeleXA) 10 MG TABLET PO SCH (08:14)
[2018-07-24] MEDS: GABAPENTIN 100 MG CAP PO SCH ×3 (08:14→21:05)
[2018-07-24] MEDS: POTASSIUM CHLORIDE 10 MEQ SR TABLET PO SCH (08:14)
[2018-07-24] MEDS: EUCERIN 120GM CREAM TOP SCH ×2 (08:15→21:06)
--- NOTE | 2018-07-24 09:11 | IPN ---
DATE: 07/23/2018 Mr. Morejon is seen this morning on his bedside. He is sitting in the recliner chair and reports feeling well. He has walked already in the hallway this morning with physical therapist. He feels that his dyspnea has improved significantly since admission. He remains on intravenous dobutamine and Lasix drips. She denies any nausea, vomiting, fever or chills. PHYSICAL EXAMINATION Temperature 97.7 degrees Fahrenheit, heart rate 115 per minute and respiratory rate 18 per minute. Blood pressure 97/58 mmHg and oxygen saturation 90 feet and on room air. Head is atraumatic. Neck is supple and jugular venous distention (JVD) is still elevated about 13-14 cm above sternal angle. He has no oral thrush or ulcers. Heart sounds are tachycardic and irregular and lungs have diminished breath sounds at the right lower half. Basilar rales present bilaterally. Abdomen is soft and nontender and bowel sounds are normal. Extremities have no cyanosis or clubbing. Lower extremity edema is still present. Neurologically he is awake, alert and at his baseline mentation. Today's labs show sodium level 133, potassium 4.5, CO2 26, BUN 84 and creatinine 2.36. Glucose 119, calcium 8.5. PROBLEMS: 1. Acute on chronic systolic congestive heart failure. Volume status is improving and the patient continues to diurese. I would like to continue with dobutamine drip and intravenous Lasix drip for at least the next 24 to 48 hours and see how he responds. So far he has been diuresing very nicely. I have discussed with nursing staff and advised to make sure the patient is on 1500 mL fluid restriction. 2. Acute kidney injury superimposed on chronic kidney disease. Slight increase but no definite trend noted. Kidney function has been more or less stable for last few days. He has no uremic symptoms and we will continue to monitor his kidney function closely. 3. Hyponatremia. Sodium level is unchanged and hyponatremia is very mild. No specific intervention is indicated. 4. Hypokalemia. The patient was given high-dose potassium supplement and his potassium level has improved. We will need to monitor closely as he is still on potassium supplement 20 mEq b.i.d. Depending upon his electrolytes tomorrow, we will consider to make further adjustments. 5. Anemia. At present his anemia is stable and there is no indication for a transfusion.
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
[2018-07-24] MEDS: PERCOCET 5MG/325MG TAB PO PRN (11:21)
[2018-07-24] MEDS: FUROSEMIDE injection 250 MG in D5W 225 ML IV SCH (11:22)
[2018-07-24] MEDS: CLOPIDOGREL 75 MG TAB PO SCH (21:04)
[2018-07-24] MEDS: DULoxetine 20 MG CAP (CYMBALTA) PO SCH (21:04)
[2018-07-24] MEDS: VITAMIN D 1,000 INTERNATIONAL UNITS TABLET PO SCH (21:04)
[2018-07-24] MEDS: TAMSULOSIN 0.4 MG CAP PO SCH (21:04)
[2018-07-24] MEDS: FINASTERIDE 5 MG TAB PO SCH (21:04)
[2018-07-24] MEDS: FEBUXOSTAT 40 MG TABLET (ULORIC) PO SCH (21:04)
[2018-07-24] MEDS: ASPIRIN 81 MG ENTERIC TAB PO SCH (21:04)
[2018-07-24] MEDS: OMEPRAZOLE 20 MG CAP PO SCH (21:05)
[2018-07-25] MEDS: IPRATROPIUM 0.5MG/ALBUTEROL 2.5MG INH SOL UD 3ML (DUONEB)(J7620) NEB SCH ×4 (02:00→20:30)
[2018-07-25 04:45] VITALS: BP 100/69
[2018-07-25] MEDS: LEVOTHYROXINE 25MCG TABLET (0.025MG) PO SCH (05:47)
[2018-07-25] MEDS: SLF 3 ML SYR IV SCH ×3 (05:50→21:18)
[2018-07-25 06:24] LABS: ALBUMIN 2.9 GM/DL (3.2-5.2); CREATININE FOR GFR 2.49 MG/DL (0.70-1.30); GLOMERULAR FILTRATION RATE 27.1 (>42); MAGNESIUM LEVEL 2.2 MG/DL (1.8-2.4); PHOSPHORUS LEVEL 3.7 MG/DL (2.5-4.9); POTASSIUM SERUM 5.2 MEQ/L (3.5-5.1)
[2018-07-25 07:45] VITALS: BP 100/63
[2018-07-25] MEDS: GABAPENTIN 100 MG CAP PO SCH ×3 (08:25→21:15)
[2018-07-25] MEDS: SPIRONOLACTONE 25 MG TAB PO SCH (08:25)
[2018-07-25] MEDS: ACETAMINOPHEN 325 MG TAB PO PRN (08:25)
[2018-07-25] MEDS: CitaloPRAM (CeleXA) 10 MG TABLET PO SCH (08:25)
[2018-07-25] MEDS: HumaLOG INSULIN (NovoLOG) PER UNIT SC SCH ×4 (08:25→21:00)
[2018-07-25] MEDS: EUCERIN 120GM CREAM TOP SCH ×2 (08:26→21:17)
--- NOTE | 2018-07-25 08:30 | IPN ---
DATE: 07/24/2018 SUBJECTIVE: Patient is seen and examined this morning at the bedside sitting out of bed to the chair eating breakfast. Denies any acute overnight events or complaints. He continues to work with physical therapy. Denies any trouble with urinary voids. Continues on combination dobutamine drip and Lasix infusion and is diuresing nicely. Blood pressures remain somewhat soft. Vital signs: Temperature 97.3, pulse 116-119, respiratory rate 20, blood pressure 90/60, saturating 95-99% on two liters nasal cannula. Intake yesterday was 900, urine output yesterday was 2200, postvoid residual yesterday was 240, net negative 1530. Weight in the bed scale today is 73.1 kg. General: Patient is seen sitting in a chair, eating, awake, alert, no acute distress. Extraocular muscles are intact. Tongue is moist. Nasal cannula is in place. Jugular veins are elevated. Lung sounds are diminished at the bases, more so on the right than the left. Cardiac: Tachycardiac, heart rate about 110s. There is pitting edema that is present up to the hip and dependent areas, about 2+. Abdomen is soft and nontender. Neurologic: He is at baseline mentation, awake and oriented and conversational. LABORATORY DATA: Sodium 131, potassium 4.6, BUN 84, creatinine 2.3, magnesium 1.9, hemoglobin 9.3. Chest x-ray 07/23/2018 shows a moderate right pleural effusion. INPATIENT MEDICATIONS: He continues on dobutamine infusion and Lasix running at 10 mg/hour with spironolactone 25 mg by mouth twice a day. I am stopping the oral potassium. Remainder of medications are unchanged from prior. PROBLEMS: 1. Severe biventricular congestive heart failure with diastolic congestive heart failure and status post automatic implantable cardioverter (AICD) with recurrent admissions for decompensated volume status and has a history of recurrent cardiorenal syndrome. Presently diuresing with combination and inotrope support and Lasix drip. He has borderline hypotension which complicated the ability to diurese, but at present he is doing well with the inotrope support. He is in daily net negative fluid balance and no changes are being made to the diuretic regimen today. 2. Acute on chronic renal failure with recurrent cardiorenal syndrome. He has borderline blood pressures due to the biventricular congestive heart failure which complicates his ability to diurese. Presently on inotrope. Renal function has been stable the past 3 days and is improved as compared to admission. I am holding the oral potassium. 3. Chronic hypotension secondary to biventricular heart failure. He continues on diuretics with inotrope support and has been tolerating it. At home he is on chronic midodrine. 4. History of urinary retention. He continues on Flomax and finasteride and daily postvoid residual bladder scan. 5. Hypervolemic hyponatremia secondary to advanced chronic kidney disease and severe biventricular heart failure. Continue with fluid restriction and diuretics. Prognosis is very poor. MTDD
[2018-07-25 12:01] VITALS: BP 97/59
[2018-07-25] MEDS: FUROSEMIDE injection 250 MG in D5W 225 ML IV SCH (13:05)
[2018-07-25] MEDS: PERCOCET 5MG/325MG TAB PO PRN (13:06)
[2018-07-25 15:57] VITALS: BP 148/70
[2018-07-25 16:45] VITALS: BP 111/58
[2018-07-25 20:00] VITALS: BP 94/58
[2018-07-25] MEDS: TAMSULOSIN 0.4 MG CAP PO SCH (21:15)
[2018-07-25] MEDS: CLOPIDOGREL 75 MG TAB PO SCH (21:15)
[2018-07-25] MEDS: FINASTERIDE 5 MG TAB PO SCH (21:15)
[2018-07-25] MEDS: FEBUXOSTAT 40 MG TABLET (ULORIC) PO SCH (21:15)
[2018-07-25] MEDS: VITAMIN D 1,000 INTERNATIONAL UNITS TABLET PO SCH (21:16)
[2018-07-25] MEDS: ASPIRIN 81 MG ENTERIC TAB PO SCH (21:16)
[2018-07-25] MEDS: OMEPRAZOLE 20 MG CAP PO SCH (21:16)
[2018-07-25] MEDS: DULoxetine 20 MG CAP (CYMBALTA) PO SCH (21:16)
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
[2018-07-26] VITALS (7 sets, daily range): BP systolic 80–106; BP diastolic 59–75
[2018-07-26] MEDS: IPRATROPIUM 0.5MG/ALBUTEROL 2.5MG INH SOL UD 3ML (DUONEB)(J7620) NEB SCH ×4 (01:36→20:18)
[2018-07-26] MEDS: LEVOTHYROXINE 25MCG TABLET (0.025MG) PO SCH (05:40)
[2018-07-26] MEDS: SLF 3 ML SYR IV SCH ×3 (05:40→21:00)
[2018-07-26] MEDS: PERCOCET 5MG/325MG TAB PO PRN ×2 (05:41→21:01)
[2018-07-26 05:50] LABS: CALCIUM LEVEL 9.2 MG/DL (8.8-10.2); CREATININE FOR GFR 2.72 MG/DL (0.70-1.30); GLOMERULAR FILTRATION RATE 24.5 (>42); MAGNESIUM LEVEL 2.2 MG/DL (1.8-2.4); PHOSPHORUS LEVEL 4.4 MG/DL (2.5-4.9); POTASSIUM SERUM 5.4 MEQ/L (3.5-5.1)
--- NOTE | 2018-07-26 06:54 | IPN ---
DATE OF SERVICE: 07/25/2018 SUBJECTIVE: Patient is seen and examined this morning at the bedside. Reports he had an uneventful night. He is hyperkalemic this morning and I have stopped his spironolactone. He is off of oxygen and continues on Lasix drip and dobutamine infusion. Vital signs: Temperature 97.5, pulse 112, respiratory rate 20, blood pressure 97/59, saturating 98% on room air. Review of input and output yesterday shows net negative 300. Weight on the bed scale today is 73.4 kg. General: Patient is seen lying in bed, awake, alert, no acute distress. Oriented. Extraocular muscles are intact. Tongue is moist. Neck veins are elevated. He is tachycardic. S1, S2. Respiratory: Diminished breath sounds more so on the right base than on the left. There is no accessory muscle use or tachypnea. He is comfortable on room air. Abdomen is soft and nontender. Extremities show edema about 1-2+ that comes up to the knee and some edema as well in the right hip and thigh. There is a defibrillator in the left chest wall. Neurologic: He is at baseline mentation. Psychiatric: He is very anxious. LABS: Sodium 131, potassium 5.2, BUN 88, creatinine 2.4. Hemoglobin 9.3. INPATIENT MEDICATIONS: I have discontinued the spironolactone. He continues on Lasix drip at 10 mg/hr and dobutamine infusion. Remainder of medications are unchanged from prior. PROBLEMS: 1. Severe biventricular congestive heart failure and diastolic congestive heart failure (CHF) with recurrent admissions for decompensated volume status and history of recurrent cardiorenal syndrome, overall poor prognosis given his advanced heart failure and his advanced renal failure, presenting diuresing with inotropic support and Lasix drip. I had to discontinue his spironolactone due to mild hyperkalemia. He has borderline blood pressures which complicate the ability to diurese but at present doing well with inotropic support. I will give IV Diuril in combination with the Lasix if I feel his blood pressure can tolerate it as it will help with potassium excretion and diuresis. 2. Acute on chronic renal failure with recurrent cardiorenal syndrome. Chronic kidney disease IV underlying. Borderline blood pressures due to biventricular congestive heart failure complicates ability to diurese. Continue dobutamine. He is still volume overloaded. He developed some mild hyperkalemic so his spironolactone had to be held. Continues on Lasix drip. Oral potassium supplement was stopped yesterday. We will give IV thiazide diuretic if blood pressure will allow. 3. Chronic hypotension due to biventricular heart failure. dobutamine should continue until he is closer to euvolemia at which point we can switch over the midodrine. 4. Hypervolemic hyponatremia secondary to advanced chronic kidney disease and severe congestive heart failure. Continue with fluid restriction and diuretics. 5. Hyperkalemia. Potassium supplement was stopped yesterday. Spironolactone is held today and 2 gram potassium restriction is added to the diet. MTDD
[2018-07-26] MEDS: HumaLOG INSULIN (NovoLOG) PER UNIT SC SCH ×4 (08:33→21:00)
[2018-07-26] MEDS: CitaloPRAM (CeleXA) 10 MG TABLET PO SCH (08:33)
[2018-07-26] MEDS: GABAPENTIN 100 MG CAP PO SCH ×3 (08:33→21:05)
[2018-07-26] MEDS: EUCERIN 120GM CREAM TOP SCH ×2 (08:34→21:01)
[2018-07-26] MEDS ORDERED: CHLOROTHIAZIDE 500 MG VIAL (J1205) IV SCH (09:00)
[2018-07-26] MEDS ORDERED: PATIROMER SORBITEX CALCIUM 8.4 GM POWDER PACKET (VELTASSA) PO ONE (12:00)
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
[2018-07-26] MEDS: ONDANSETRON 4MG/2ML VIAL (J2405) IV PRN (16:45)
[2018-07-26] MEDS: FINASTERIDE 5 MG TAB PO SCH (20:59)
[2018-07-26] MEDS: ASPIRIN 81 MG ENTERIC TAB PO SCH (20:59)
[2018-07-26] MEDS: FEBUXOSTAT 40 MG TABLET (ULORIC) PO SCH (20:59)
[2018-07-26] MEDS: CLOPIDOGREL 75 MG TAB PO SCH (21:00)
[2018-07-26] MEDS: DULoxetine 20 MG CAP (CYMBALTA) PO SCH (21:00)
[2018-07-26] MEDS: VITAMIN D 1,000 INTERNATIONAL UNITS TABLET PO SCH (21:00)
[2018-07-26] MEDS: OMEPRAZOLE 20 MG CAP PO SCH (21:04)
[2018-07-26] MEDS: TAMSULOSIN 0.4 MG CAP PO SCH (21:05)
[2018-07-26] MEDS ORDERED: FUROSEMIDE injection 250 MG in D5W 225 ML IV SCH (22:00)
[2018-07-27] MEDS: PERCOCET 5MG/325MG TAB PO PRN ×2 (01:00→06:58)
[2018-07-27] MEDS: IPRATROPIUM 0.5MG/ALBUTEROL 2.5MG INH SOL UD 3ML (DUONEB)(J7620) NEB SCH ×4 (02:00→19:55)
[2018-07-27 04:00] VITALS: BP 92/67
[2018-07-27] MEDS: LEVOTHYROXINE 25MCG TABLET (0.025MG) PO SCH (05:33)
[2018-07-27] MEDS: SLF 3 ML SYR IV SCH ×3 (05:34→22:00)
[2018-07-27 05:39] LABS: BASO # 0.1 10^3/uL (0.0-0.2); BASO % 0.6 % (0.0-1.0); EOS # 0.5 10^3/uL (0.0-0.50); HEMOGLOBIN 10.9 g/dl (13.5-17.5); LYMPH # 1.5 10^3/uL (1.5-4.5); LYMPH % 12.9 % (24.0-44.0); MEAN CORPUSCULAR HEMOGLOBIN 28.3 pg (27.0-33.0); MEAN CORPUSCULAR HGB CONC 31.1 g/dl (32.0-36.5); MEAN CORPUSCULAR VOLUME 90.9 fl (80.0-96.0); MONO # 0.7 10^3/uL (0.0-0.8); NEUTROPHILS # 8.9 10^3/uL (1.8-7.7); NEUTROPHILS % 75.5 % (36.0-66.0); PLATELET COUNT, AUTOMATED 252 10^3/uL (150-450); RED BLOOD COUNT 3.85 10^6/uL (4.30-6.10); WHITE BLOOD COUNT 11.8 10^3/uL (4.0-10.0)
--- NOTE | 2018-07-27 05:49 | IPN ---
DATE OF VISIT: 07/26/2018 SUBJECTIVE: The patient is seen and examined this morning sitting out of bed in the recliner. He is in poor spirits. He says he did not sleep well overnight, complains his legs are swollen and bothering him. Laboratory studies also show worsening renal failure. I discussed the patient's poor prognosis with him and he became very anxious. PHYSICAL EXAMINATION: VITAL SIGNS: Temperature 97, pulse 111, respiratory rate 19, blood pressure 86/60, saturating 97% on room air. Intake 1390, urine output yesterday 1515, net negative 230. Weight in the bed scale today was not recorded. GENERAL: The patient was seen sitting in the recliner, legs elevated, elderly male, poor spirits appears depressed, in no acute distress. He is awake, alert and oriented times three. HEENT: Extraocular muscles intact. Tongue is moist. NECK: Neck veins are elevated. HEART: Heart sounds are tachycardic, S1, S2. LUNGS: Breath sounds are diminished on the right base about one-third up and mildly diminished on the left. There is no accessory muscle use or tachypnea. ABDOMEN: Soft, nontender, and obese. There is some mild abdominal wall pitting edema present. EXTREMITIES: The patient has a significant pitting edema that extends up to the hip and thigh, 2-3+. NEUROLOGIC: He is oriented and conversational. PSYCHIATRIC: He is very anxious. LABORATORY DATA: White count 6.4, hemoglobin 9. Sodium 126, potassium 5.4, BUN 101, creatinine 2.7, albumin 3.0. INPATIENT MEDICATIONS: I held his Lasix drip. He continues on dobutamine. He also received a dose of Veltassa. The remainder of the medications are unchanged from prior. PROBLEMS: 1. Acute kidney injury ([place]) on chronic kidney disease (CKD) stage IV secondary to cardiorenal syndrome. Renal function worsened over the past 24 hours. BUN up to 101. His blood pressures remain soft despite dobutamine infusion. I would give a diuretic holiday for 12 hours and we will resume the Lasix drip in the evening. Spironolactone has been discontinued due to hyperkalemia. Despite several days of combination inotrope therapy with Lasix infusion he is still volume overloaded and now with worsening kidney function, I am pessimistic about his immediate prognosis. 2. Systolic and diastolic congestive heart failure, ischemic cardiomyopathy, biventricular heart failure status post automatic implantable cardio converter-defibrillator (AICD), presently on inotropic support in view of decompensated volume status and cardiorenal syndrome. Renal function has worsened over the past 24 hours. Would hold Lasix drip for 12 hours continue with the dobutamine infusion for renal perfusion. He has had recurrent admissions for congestive heart failure (CHF) and cardiorenal syndrome and the prognosis is poor. 3. Chronic hypotension due to biventricular heart failure. Continue on dobutamine. Unfortunately, even with inotropic support, he has not made significant progress. 4. Hyperkalemia. He is on a 2 gram potassium restricted diet and spironolactone is held. Continue with Lasix drip. He also received a dose of Veltassa today.
[2018-07-27 06:04] LABS: ALBUMIN 2.9 GM/DL (3.2-5.2); CALCIUM LEVEL 8.8 MG/DL (8.8-10.2); CREATININE FOR GFR 3.08 MG/DL (0.70-1.30); GLOMERULAR FILTRATION RATE 21.2 (>42); MAGNESIUM LEVEL 2.2 MG/DL (1.8-2.4); PHOSPHORUS LEVEL 5.2 MG/DL (2.5-4.9); POTASSIUM SERUM 5.7 MEQ/L (3.5-5.1)
[2018-07-27] MEDS: CYCLOBENZAPRINE 5MG TABLET PO PRN (06:58)
[2018-07-27 07:30] VITALS: BP 96/62
[2018-07-27] MEDS ORDERED: PATIROMER SORBITEX CALCIUM 8.4 GM POWDER PACKET (VELTASSA) PO ONE (08:00)
[2018-07-27] MEDS: HumaLOG INSULIN (NovoLOG) PER UNIT SC SCH ×4 (08:22→21:00)
[2018-07-27] MEDS: GABAPENTIN 100 MG CAP PO SCH ×3 (08:22→21:08)
[2018-07-27] MEDS: CitaloPRAM (CeleXA) 10 MG TABLET PO SCH (08:22)
[2018-07-27] MEDS: EUCERIN 120GM CREAM TOP SCH ×2 (08:23→21:09)
[2018-07-27] MEDS ORDERED: TORSEMIDE 20 MG TAB PO SCH (09:00)
[2018-07-27] MEDS ORDERED: SOD POLYSTYRENE SULFONATE SUSP 15 GM/60 ML UD PO ONE (10:30)
[2018-07-27 12:20] VITALS: BP 98/62
[2018-07-27] MEDS ORDERED: LIDOCAINE 1% MDV 20ML VIAL As Ordered ONE (12:50)
[2018-07-27 15:30] VITALS: BP 102/64
[2018-07-27] MEDS: SODIUM CHLORIDE 0.9% INJ 10 ML SYR IV SCH (17:26)
--- NOTE | 2018-07-27 17:53 | REP ---
PICC line insertion: History: Poor IV access. Procedure: The patient was interviewed and informed consent was obtained. Site right sonographic scanning of the right upper extremity was utilized to identify a right basilic vein. The skin was marked. The patient was placed on the angiography table and the right arm was prepped and draped. After patient safety time-out was articulated and agreed to, a micropuncture technique was performed under ultrasound guidance and a dual-lumen 35.5 cm PICC line was inserted. Its tip was positioned under fluoroscopic observation in the superior vena cava. The catheter was affixed to the skin in the usual fashion and both lumens were flushed with 2 ml of heparin per hospital protocol. The patient tolerated the procedure well. Impression: Dual-lumen right arm PICC line insertion. Electronically Signed by Robert Solano MD 07/27/2018 06:26 P
[2018-07-27 18:29] LABS: CALCIUM LEVEL 9.1 MG/DL (8.8-10.2); CREATININE FOR GFR 3.21 MG/DL (0.70-1.30); GLOMERULAR FILTRATION RATE 20.2 (>42)
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
[2018-07-27 20:00] VITALS: BP 97/65
[2018-07-27] MEDS: ASPIRIN 81 MG ENTERIC TAB PO SCH (21:07)
[2018-07-27] MEDS: CLOPIDOGREL 75 MG TAB PO SCH (21:07)
[2018-07-27] MEDS: FEBUXOSTAT 40 MG TABLET (ULORIC) PO SCH (21:07)
[2018-07-27] MEDS: TAMSULOSIN 0.4 MG CAP PO SCH (21:08)
[2018-07-27] MEDS: FINASTERIDE 5 MG TAB PO SCH (21:08)
[2018-07-27] MEDS: DULoxetine 20 MG CAP (CYMBALTA) PO SCH (21:08)
[2018-07-27] MEDS: OMEPRAZOLE 20 MG CAP PO SCH (21:08)
[2018-07-27] MEDS: VITAMIN D 1,000 INTERNATIONAL UNITS TABLET PO SCH (21:08)
--- NOTE | 2018-07-27 23:57 | IPN ---
DATE: 07/27/2018 SUBJECTIVE: Pierce is seen and examined this morning in bed. He is depressed. Nursing staff tells me that the patient pulled out all of his peripheral IV access and that he has not been receiving the dobutamine infusion because of lack of access. I discussed with the hospitalist regarding getting a peripherally inserted central catheter (PICC) line. I again discussed with Pierce regarding his severe biventricular congestive heart failure, cardiorenal syndrome, and worsening renal parameters. He is hyperkalemic and BUN is greater than 100. He is not a suitable candidate for hemodialysis given the inotrope dependence. The patient became very anxious when his poor prognosis was concerned and did not want to continue the conversation. VITAL SIGNS: Temperature 97.2, pulse 98, respiratory rate 20, blood pressure 98/62, saturating 92-93% on room air. Intake yesterday was 660, urine output yesterday was 475, net negative 200 mL. Weight on the bed scale today is 74.8 kg. General: The patient is seen lying down, elderly male, in no acute distress, looks anxious. Awake and alert. Extraocular muscles are intact. Tongue is moist. Neck veins are elevated. Breath sounds are diminished, mostly on the right base. Better air entry on the left. Abdomen is soft and nontender. There is mild induration and pitting edema in the flanks and abdominal wall. Extremities show pitting edema that is extending up to the hips and dependent areas. He has pulled out his peripheral IV access. Neurologic: He is oriented and seems to have some fair insight into his condition. Hemoglobin 10.9, white count 11.8. Sodium 126, potassium 5.7, subsequently repeat 5.0, BUN 117, creatinine 3.2. INPATIENT MEDICATIONS: His diuretic was discontinued. Dobutamine drip is increased to 3 mL per hour when he has access placed again. He received a dose of Veltassa this morning. Remainder of medications are unchanged from prior. PROBLEMS: 1. Acute on chronic renal failure with chronic kidney disease stage IV underlying, now with a BUN greater than 100 and persistent hyperkalemia, renal failure secondary to cardiorenal syndrome from his severe biventricular congestive heart failure. He has been inotrope dependent for almost 2 weeks. His renal function is worsening. I discussed this with him. He has had prior conversations with other physicians regarding his overall very poor prognosis. He is not suitable for hemodialysis given his severe heart failure and hypotension requiring inotrope support. I suggest consideration be given for transport to [facility] for evaluation for advanced heart failure therapy, including destination home inotrope. Our only option for treating his renal failure here would be continuous veno-venous hemodiafiltration (CVVHDF) while he is on inotrope, and I do not see any reasonable end point with that. 2. Biventricular heart failure, systolic and diastolic, ischemic cardiomyopathy, status post automatic implantable cardioverter defibrillator (AICD). Has been on inotropic support since 07/15/2018, still with peripheral edema and with worsening cardiorenal syndrome. However, he is on room air. Given his worsening renal function, I have stopped his Lasix, and we are continuing with dobutamine infusion for renal perfusion. He has had recurrent admissions for decompensated congestive heart failure (CHF) with accompanying cardiorenal syndrome. He is not a suitable candidate for hemodialysis. I suggest getting in touch with a heart failure specialist at [facility] for possible transfer. Otherwise, if he is not deemed suitable for transfer, then I would give considerable for comfort measures only. 3. Chronic hypotension due to biventricular failure. Has been on inotropes for the past 2 weeks. I have increased his dobutamine infusion for better renal perfusion. He did pull out his peripheral IVs and was without IV access for some time overnight and this morning. 4. Hyperkalemia. Status post Veltassa, 2-gram potassium restriction. Lasix drip on hold due to worsening renal failure. 5. Hypervolemic hyponatremia related to renal failure and severe heart failure.
[2018-07-27 23:59] VITALS: BP 130/72
[2018-07-28] MEDS: DOBUTamine HCL 500,000 MCG in APPROPRIATE DILUENT 1 EA IV SCH (00:22)
[2018-07-28] MEDS: PERCOCET 5MG/325MG TAB PO PRN (00:34)
[2018-07-28] MEDS: IPRATROPIUM 0.5MG/ALBUTEROL 2.5MG INH SOL UD 3ML (DUONEB)(J7620) NEB SCH ×4 (02:00→20:00)
[2018-07-28 04:00] VITALS: BP 99/63
[2018-07-28] MEDS: LEVOTHYROXINE 25MCG TABLET (0.025MG) PO SCH (05:13)
[2018-07-28] MEDS: SODIUM CHLORIDE 0.9% INJ 10 ML SYR IV SCH ×2 (05:13→18:22)
[2018-07-28 05:31] LABS: BASO # 0.1 10^3/uL (0.0-0.2); BASO % 0.6 % (0.0-1.0); EOS # 0.5 10^3/uL (0.0-0.50); EOS % 4.6 % (0.0-3.0); HEMATOCRIT 33.9 % (42.0-52.0); HEMOGLOBIN 10.5 g/dl (13.5-17.5); LYMPH # 1.6 10^3/uL (1.5-4.5); LYMPH % 16.2 % (24.0-44.0); MEAN CORPUSCULAR HEMOGLOBIN 28.2 pg (27.0-33.0); MEAN CORPUSCULAR VOLUME 90.9 fl (80.0-96.0); MONO # 0.8 10^3/uL (0.0-0.8); PLATELET COUNT, AUTOMATED 265 10^3/uL (150-450); RED BLOOD COUNT 3.73 10^6/uL (4.30-6.10); WHITE BLOOD COUNT 9.9 10^3/uL (4.0-10.0)
[2018-07-28 05:45] LABS: ALBUMIN 2.9 GM/DL (3.2-5.2); CALCIUM LEVEL 8.8 MG/DL (8.8-10.2); CREATININE FOR GFR 3.35 MG/DL (0.70-1.30); GLOMERULAR FILTRATION RATE 19.3 (>42); MAGNESIUM LEVEL 2.3 MG/DL (1.8-2.4); PHOSPHORUS LEVEL 5.4 MG/DL (2.5-4.9); POTASSIUM SERUM 5.2 MEQ/L (3.5-5.1)
[2018-07-28] MEDS: SLF 3 ML SYR IV SCH (06:00)
[2018-07-28 08:00] VITALS: BP 112/76
[2018-07-28] MEDS: CitaloPRAM (CeleXA) 10 MG TABLET PO SCH (08:50)
[2018-07-28] MEDS: HumaLOG INSULIN (NovoLOG) PER UNIT SC SCH ×4 (08:50→21:00)
[2018-07-28] MEDS: EUCERIN 120GM CREAM TOP SCH ×2 (08:51→21:46)
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
[2018-07-28] MEDS ORDERED: TORSEMIDE 20 MG TAB PO SCH (09:00)
[2018-07-28 12:00] VITALS: BP 120/68
[2018-07-28 16:00] VITALS: BP 98/66
[2018-07-28 20:00] VITALS: BP 100/52
[2018-07-28] MEDS: VITAMIN D 1,000 INTERNATIONAL UNITS TABLET PO SCH (21:44)
[2018-07-28] MEDS: CLOPIDOGREL 75 MG TAB PO SCH (21:44)
[2018-07-28] MEDS: DULoxetine 20 MG CAP (CYMBALTA) PO SCH (21:45)
[2018-07-28] MEDS ORDERED: PATIROMER SORBITEX CALCIUM 8.4 GM POWDER PACKET (VELTASSA) PO ONE (21:45)
[2018-07-28] MEDS: TAMSULOSIN 0.4 MG CAP PO SCH (21:45)
[2018-07-28] MEDS: OMEPRAZOLE 20 MG CAP PO SCH (21:45)
[2018-07-28] MEDS: ASPIRIN 81 MG ENTERIC TAB PO SCH (21:45)
[2018-07-28] MEDS: FINASTERIDE 5 MG TAB PO SCH (21:46)
[2018-07-28] MEDS: FEBUXOSTAT 40 MG TABLET (ULORIC) PO SCH (21:54)
[2018-07-28 23:59] VITALS: BP 85/60
[2018-07-29] VITALS (7 sets, daily range): BP systolic 84–109; BP diastolic 54–70
[2018-07-29] MEDS: IPRATROPIUM 0.5MG/ALBUTEROL 2.5MG INH SOL UD 3ML (DUONEB)(J7620) NEB SCH ×4 (01:35→19:35)
--- NOTE | 2018-07-29 02:45 | IPN ---
DATE: 07/28/2018 SUBJECTIVE: The patient was seen and examined this morning, sitting out of the bed to the chair. He is in poor spirits and depressed, but he denies any acute overnight events. His diuretics have been discontinued for the past two days. He has been only on dobutamine infusion via percutaneous indwelling central catheter (PICC) line. He remains on room air and I discussed his renal failure with him. He is pending cardiology evaluation later this afternoon. VITAL SIGNS: Temperature 97.0, pulse 106, respiratory rate 22, blood pressure 120/68, saturating 90% to 98% on room air. Intake yesterday was 850. Urine output yesterday was 1225, net negative 360. Weight in the bed scale is 74.1 kg. GENERAL: The patient is seen sitting out of bed to the chair. Friend is present at the bedside. Extraocular muscles are intact. Tongue is moist. He is on room air. Jugular venous pulsations are elevated. Cardiac: Tachycardia S1, S2. Respiratory: Shows diminished breath sounds on the right base. The abdomen is soft, obese and nontender. There is some mild pitting edema in the flank. Extremities show 1+ pitting edema that extends up to the thighs and dependent area. There is no suprapubic fullness to suggest urinary retention. Neurologic: He is oriented and seems to understand what I am telling him about his kidney and heart failure. There is percutaneous indwelling central catheter (PICC) line in the right upper extremity. LABORATORY: White count 9.9, hemoglobin 10.5, sodium 129, potassium 5.2, BUN 114, creatinine 3.3, phosphorus 5.4. INPATIENT MEDICATIONS: He is ordered for a dose of Veltassa 8.4 grams. He continues on dobutamine infusion. Diuretics are all held. His gabapentin was discontinued. The remainder of the medications are unchanged from prior. PROBLEMS: 1. Acute on chronic renal failure. Baseline chronic kidney disease (CKD) is stage IV. Recurrent admissions in the past year, at least 4 or 5 times for decompensated heart failure with associated cardiorenal syndrome. He has been inotrope dependent for the past two weeks. His renal function has worsened. I stopped his diuretics two days ago. At present, there are no overt uremic signs or symptoms. There is mild persistent hyperkalemia, which we are medically managing. WIth dobutamine infusion His blood pressures are averaging systolic 90s to 110 and I am continuing dobutamine infusion for renal perfusion. I feel he is a very poor candidate for hemodialysis given the severe underlying biventricular heart failure and hypotension. I suggest evaluation by heart failure specialist for consideration of home inotrope or BIVAD. Local treatment for his renal failure would include CVVHDF with inotrope support. But unfortunately, I do not see any reasonable end point with that. 2. Biventricular heart failure, systolic, diastolic and ischemic cardiomyopathy, status post automatic implantable cardioverted defibrillator (AICD). Inotrope dependent for the past two weeks. Volume status is not optimal, but it is acceptable. He is on room air. He has worsening cardiorenal syndrome. Diuretics were stopped two days ago. Continues with dobutamine infusion for renal perfusion. He has had recurrent admissions for decompensated congestive heart failure (CHF) with accompanying cardiorenal syndrome. He is a poor candidate for hemodialysis as I feel it would be very taxing from a hemodynamic point of view. I suggest heart failure evaluation at [facility]/consideration for transfer. He is going to be seen by his regular wrapping checker, Dr. Sebastian today and I await cardiology input. 3. Chronic hypotension, biventricular heart failure, inotrope dependent. Continue dobutamine infusion for renal perfusion. Hold diuretics. 4. Hyperkalemia, recurrent due to renal failure. Continue potassium restriction and will receive another dose of Veltassa. 5. Hypervolemic, hyponatremia related to renal failure and severe heart failure. 6. History of urinary retention. He continues on Flomax and finasteride and I had the nurse check a postvoid residual bladder scan again today, which was negative. [facility]
[2018-07-29] MEDS: SODIUM CHLORIDE 0.9% INJ 10 ML SYR IV SCH ×2 (05:15→17:34)
[2018-07-29] MEDS: LEVOTHYROXINE 25MCG TABLET (0.025MG) PO SCH (05:15)
[2018-07-29 05:40] LABS: BASO # 0.1 10^3/uL (0.0-0.2); BASO % 0.5 % (0.0-1.0); EOS # 0.6 10^3/uL (0.0-0.50); EOS % 5.6 % (0.0-3.0); HEMATOCRIT 32.3 % (42.0-52.0); HEMOGLOBIN 10.2 g/dl (13.5-17.5); LYMPH # 1.5 10^3/uL (1.5-4.5); LYMPH % 15.7 % (24.0-44.0); MEAN CORPUSCULAR HEMOGLOBIN 28.8 pg (27.0-33.0); MEAN CORPUSCULAR HGB CONC 31.6 g/dl (32.0-36.5); MEAN CORPUSCULAR VOLUME 91.2 fl (80.0-96.0); MONO # 0.8 10^3/uL (0.0-0.8); MONO % 7.6 % (0.0-5.0); NEUTROPHILS # 6.9 10^3/uL (1.8-7.7); PLATELET COUNT, AUTOMATED 237 10^3/uL (150-450); RED BLOOD COUNT 3.54 10^6/uL (4.30-6.10); WHITE BLOOD COUNT 9.8 10^3/uL (4.0-10.0)
[2018-07-29 06:04] LABS: CALCIUM LEVEL 8.8 MG/DL (8.8-10.2); CREATININE FOR GFR 3.24 MG/DL (0.70-1.30)
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
[2018-07-29] MEDS: CitaloPRAM (CeleXA) 10 MG TABLET PO SCH (08:51)
[2018-07-29] MEDS: EUCERIN 120GM CREAM TOP SCH ×2 (08:51→20:34)
[2018-07-29] MEDS: HumaLOG INSULIN (NovoLOG) PER UNIT SC SCH ×4 (08:51→21:00)
[2018-07-29] MEDS: PERCOCET 5MG/325MG TAB PO PRN (09:03)
[2018-07-29] MEDS: DOBUTamine HCL 500,000 MCG in APPROPRIATE DILUENT 1 EA IV SCH (13:53)
[2018-07-29] MEDS: PATIROMER SORBITEX CALCIUM 8.4 GM POWDER PACKET (VELTASSA) PO SCH (13:53)
--- NOTE | 2018-07-29 14:00 | REP ---
Chest two views HISTORY: Pleural effusion Comparison: 07/23/2018 Parenchymal density is present in the right lower lobe consistent with atelectasis or infiltrate. The left lung is clear. A mild size right pleural effusion is present. The cardiac silhouette is enlarged. The pulmonary vasculature is normal in appearance. The bony structure is intact. A cardiac pacemaker and PICC line are present. IMPRESSION: 1. Right lower lobe atelectasis or infiltrate and right pleural effusion unchanged compared to the previous study. 2. Cardiomegaly. Electronically Signed by Ferny Gómez MD 07/29/2018 01:50 P
[2018-07-29] MEDS: CLOPIDOGREL 75 MG TAB PO SCH (20:24)
[2018-07-29] MEDS: FEBUXOSTAT 40 MG TABLET (ULORIC) PO SCH (20:24)
[2018-07-29] MEDS: OMEPRAZOLE 20 MG CAP PO SCH (20:24)
[2018-07-29] MEDS: ASPIRIN 81 MG ENTERIC TAB PO SCH (20:24)
[2018-07-29] MEDS: DULoxetine 20 MG CAP (CYMBALTA) PO SCH (20:25)
[2018-07-29] MEDS: FINASTERIDE 5 MG TAB PO SCH (20:25)
[2018-07-29] MEDS: TAMSULOSIN 0.4 MG CAP PO SCH (20:33)
[2018-07-29] MEDS: VITAMIN D 1,000 INTERNATIONAL UNITS TABLET PO SCH (20:34)
[2018-07-30] VITALS (7 sets, daily range): BP systolic 101–138; BP diastolic 56–74
[2018-07-30] MEDS: IPRATROPIUM 0.5MG/ALBUTEROL 2.5MG INH SOL UD 3ML (DUONEB)(J7620) NEB SCH ×4 (01:17→21:48)
[2018-07-30] MEDS: ACETAMINOPHEN 325 MG TAB PO PRN (03:07)
[2018-07-30] MEDS: LEVOTHYROXINE 25MCG TABLET (0.025MG) PO SCH (05:10)
[2018-07-30] MEDS: SODIUM CHLORIDE 0.9% INJ 10 ML SYR IV SCH ×2 (05:11→17:22)
[2018-07-30 05:25] LABS: BASO % 0.4 % (0.0-1.0); EOS # 0.6 10^3/uL (0.0-0.50); EOS % 5.4 % (0.0-3.0); HEMATOCRIT 32.7 % (42.0-52.0); HEMOGLOBIN 10.5 g/dl (13.5-17.5); LYMPH # 1.5 10^3/uL (1.5-4.5); LYMPH % 15.1 % (24.0-44.0); MEAN CORPUSCULAR HEMOGLOBIN 29.1 pg (27.0-33.0); MEAN CORPUSCULAR HGB CONC 32.1 g/dl (32.0-36.5); MEAN CORPUSCULAR VOLUME 90.6 fl (80.0-96.0); MONO # 0.7 10^3/uL (0.0-0.8); MONO % 6.7 % (0.0-5.0); NEUTROPHILS # 7.3 10^3/uL (1.8-7.7); NEUTROPHILS % 71.9 % (36.0-66.0); PLATELET COUNT, AUTOMATED 242 10^3/uL (150-450); RED BLOOD COUNT 3.61 10^6/uL (4.30-6.10); WHITE BLOOD COUNT 10.2 10^3/uL (4.0-10.0)
[2018-07-30 06:04] LABS: CALCIUM LEVEL 8.9 MG/DL (8.8-10.2); CREATININE FOR GFR 3.07 MG/DL (0.70-1.30); GLOMERULAR FILTRATION RATE 21.3 (>42); POTASSIUM SERUM 5.3 MEQ/L (3.5-5.1)
--- NOTE | 2018-07-30 08:16 | IPN ---
DATE OF SERVICE: 07/29/2018 SUBJECTIVE: Pierce is seen and examined this morning sitting in a chair out of bed. He is in poor spirits. Over the past couple of days, I have been discussing with him regarding his advanced renal failure and his severe biventricular heart failure. He is pending cardiology evaluation. His options are limited and his prognosis is poor, but he is still hoping that we can offer him some treatment plan. He complains of shortness of breath with exertion and increasing peripheral edema. Vital Signs: Temperature 97.6, pulse 107, respiratory rate 20, blood pressure systolic 84-109 and diastolic in the 50s, and saturating 96-98% on room air. Intake yesterday was 1460. Urine output yesterday was 1100. Net positive 300 mL. Weight on the bed scale today is 76.6 kg. General: Patient is seen sitting in a chair. He is awake, alert, oriented and he is in no acute respiratory distress while in bed. Extraocular muscles are intact. Tongue is moist. He is oriented, conversational, interactive and seems to understand what I am telling him. He is on room air. The jugular venous pulsations are elevated. Cardiac: Tachycardic. S1, S2. Respiratory: Diminished breath sounds bilaterally, but mostly on right base. Abdomen: Soft. Obese. Nontender. I think that there is some ascitic fluid in place. There is mild pitting edema of the abdominal flanks and there is pitting edema 1 to 2+ in the lower extremities that extends up to the thighs and dependent area. There is a PICC line in the right upper extremity. Neurologic: He is oriented times three and at baseline mentation. LABS: Sodium 130, potassium 5.0, bicarbonate 30, BUN 107, creatinine 3.2. White count 9.8, hemoglobin 10.2. Chest x-ray 07/29/2018 shows a right mild pleural effusion. INPATIENT MEDICATIONS: He continues on dobutamine infusion. He is receiving Veltassa 8.4 grams by mouth daily. Remainder of medications are unchanged from prior. PROBLEMS: 1. Acute on chronic renal failure. Baseline chronic kidney disease (CKD) Stage IV. Now with BUN greater than 100. He has had recurrent admissions in the past year, at least 4 or 5, for decompensated heart failure with associated cardiorenal syndrome. He has been inotrope dependent for the past two weeks. His renal function has worsened with diuresis. His diuretics have been discontinued for the past three days. His daily weights are up trending and peripheral edema is slowly increasing. He is an overall poor candidate for intermittent hemodialysis due to the hypotension for which he is still on dobutamine infusion (which I am continuing for renal perfusion). Severe biventricular heart failure on chronic hypotension make him a poor candidate for hemodialysis. I suggest evaluation by heart failure specialist for consideration of advanced heart failure therapies including home inotrope. Local treatment for his renal failure would include CVVHDF with inotrope support, but there is no reasonable end point with that. 2. Biventricular heart failure, ischemic cardiomyopathy, inotrope dependent for the past two weeks. Volume status is not optimal. Diuretics have been held for the past three days due to worsening renal function. He remains on room air, but he has had increasing daily weights and increasing peripheral edema. He continues on dobutamine infusion for renal perfusion. He has had recurrent admissions for decompensated congestive heart failure with accompanying cardiorenal syndrome. He is not suitable for intermittent hemodialysis. He would not be able to tolerate it for a hemodynamic point of view. He is going to be seen by cardiology today and I suggest either transfer to [facility] for advanced heart failure evaluation and otherwise we have no realistic remaining options for his medical care. 3. Chronic hypotension secondary to biventricular heart failure, inotrope dependent. Continue dobutamine infusion for renal perfusion. Diuretics on hold. 4. Hyperkalemia due to renal failure. Continue potassium restriction and daily Veltassa administration. 5. Hypervolemic hyponatremia related to renal failure and severe heart failure.
[2018-07-30] MEDS: PERCOCET 5MG/325MG TAB PO PRN ×2 (09:07→17:21)
[2018-07-30] MEDS: CitaloPRAM (CeleXA) 10 MG TABLET PO SCH (09:07)
[2018-07-30] MEDS: HumaLOG INSULIN (NovoLOG) PER UNIT SC SCH ×4 (09:07→20:49)
[2018-07-30] MEDS: EUCERIN 120GM CREAM TOP SCH ×2 (09:08→20:53)
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
[2018-07-30] MEDS: PATIROMER SORBITEX CALCIUM 8.4 GM POWDER PACKET (VELTASSA) PO SCH (12:28)
[2018-07-30] MEDS: DOBUTamine HCL 500,000 MCG in APPROPRIATE DILUENT 1 EA IV SCH (19:36)
[2018-07-30] MEDS: ASPIRIN 81 MG ENTERIC TAB PO SCH (20:52)
[2018-07-30] MEDS: CLOPIDOGREL 75 MG TAB PO SCH (20:52)
[2018-07-30] MEDS: DULoxetine 20 MG CAP (CYMBALTA) PO SCH (20:52)
[2018-07-30] MEDS: VITAMIN D 1,000 INTERNATIONAL UNITS TABLET PO SCH (20:52)
[2018-07-30] MEDS: FEBUXOSTAT 40 MG TABLET (ULORIC) PO SCH (20:52)
[2018-07-30] MEDS: TAMSULOSIN 0.4 MG CAP PO SCH (20:52)
[2018-07-30] MEDS: FINASTERIDE 5 MG TAB PO SCH (20:52)
[2018-07-30] MEDS: OMEPRAZOLE 20 MG CAP PO SCH (20:52)
[2018-07-30] MEDS ORDERED: FUROSEMIDE 40 MG/4 ML VIAL (J1940) IV ONE (21:45)
[2018-07-30] MEDS: SODIUM CHLORIDE 0.9% INJ 10 ML SYR IV PRN (21:46)
--- NOTE | 2018-07-30 22:42 | IPN ---
DATE: 07/30/2018 SUBJECTIVE: The patient is seen and examined this morning sitting out of bed to the chair. He is in poor spirits. He complains of leg edema. He complains of dyspnea of exertion. He denies trouble passing urine. Temperature 96.8, pulse 84, respiratory rate 18, blood pressure 106/56, saturating 92% on room air. Intake and output yesterday shows a positive balance of 800 mL. Weight on the bed scale today is 75 kg. General: The patient is seen sitting in the chair in no acute respiratory distress, awake, alert, oriented. Friend is present at the bedside. Extraocular muscles are intact. Tongue is moist. He is on room air. Jugular venous pulsations are elevated. Cardiac: Tachycardic, S1, S2. Respiratory: Diminished breath sounds, mostly on the right base. Abdomen: Soft, obese, and nontender. I think there may be some ascitic fluid in the abdomen. There is pitting edema in the abdominal flanks, and there is pitting edema 1 to 2+ in the lower extremities that extends up to the thighs and dependent area. There is a peripherally inserted central catheter (PICC) line in the right upper extremity. Neurologic: He is oriented and at baseline mentation, although his friend tells me that he is intermittently confused. There is no pericardial friction murmur. LABORATORY: White count 10.2, hemoglobin 10.5, platelets 242. Sodium 129, potassium 5.3, BUN 107, creatinine 3.0. INPATIENT MEDICATIONS: He was given a dose of Lasix IV today. He continues on dobutamine infusion. His Veltassa is increased to 16.8 grams daily. Remainder of medications are unchanged from prior. PROBLEMS: 1. Acute on chronic renal failure. Baseline chronic kidney disease stage IV, now with BUN greater than 100. No uremic signs or symptoms. He has recurrent admissions for congestive heart failure (CHF) exacerbation in the past year with associated cardiorenal syndrome. He has been inotrope dependent for the past 2 weeks. Renal function did worsen with diuresis. He has been on diuretic holiday for 4 days. His edema is increasing. His blood pressure has come up and that is due to volume overload. He remains on room air. He is overall not a suitable candidate for intermittent hemodialysis because of his severe biventricular heart failure. He would need evaluation by a heart failure team for consideration of advanced therapies, including destination home inotropes and/or BiVAD. Local treatment for his renal failure is medical management, and his prognosis is poor. I have discussed hospice with him, but he is not there yet. 2. Ventricular heart failure. Inotrope dependent for the past 2 weeks, on diuretic holiday due to cardiorenal syndrome, worsening renal function. His edema is increasing. His blood pressure is up in the usual baseline and that is due to volume overload. He is still on room air, but he is short of breath with mild exertion. He continues on dobutamine infusion for renal perfusion. We will give a dose of Lasix today. He has had recurrent admissions for decompensated CHF with accompanying cardiorenal syndrome. He is not suitable for intermittent hemodialysis. He would not be able to tolerate it from a hemodynamic point of view. His prognosis is very poor. 3. Hyperkalemia secondary to renal failure. Veltassa dose is increased. Continue potassium restricted diet. Continue dobutamine infusion for renal perfusion. Give a dose of Lasix today. 4. Hypervolemic hyponatremia related to renal failure and severe heart failure. Continue low sodium intake and fluid restriction.
[2018-07-31] MEDS: IPRATROPIUM 0.5MG/ALBUTEROL 2.5MG INH SOL UD 3ML (DUONEB)(J7620) NEB SCH ×4 (01:23→20:00)
[2018-07-31 04:00] VITALS: BP 108/64
[2018-07-31] MEDS: SODIUM CHLORIDE 0.9% INJ 10 ML SYR IV SCH ×2 (05:18→17:01)
[2018-07-31] MEDS: LEVOTHYROXINE 25MCG TABLET (0.025MG) PO SCH (05:21)
[2018-07-31 05:27] LABS: BASO # 0.1 10^3/uL (0.0-0.2); BASO % 0.6 % (0.0-1.0); EOS # 0.7 10^3/uL (0.0-0.50); HEMATOCRIT 31.7 % (42.0-52.0); LYMPH # 1.5 10^3/uL (1.5-4.5); LYMPH % 17.3 % (24.0-44.0); MEAN CORPUSCULAR HEMOGLOBIN 28.5 pg (27.0-33.0); MEAN CORPUSCULAR HGB CONC 31.5 g/dl (32.0-36.5); MEAN CORPUSCULAR VOLUME 90.3 fl (80.0-96.0); MONO # 0.6 10^3/uL (0.0-0.8); MONO % 7.2 % (0.0-5.0); NEUTROPHILS # 5.6 10^3/uL (1.8-7.7); NEUTROPHILS % 66.3 % (36.0-66.0); PLATELET COUNT, AUTOMATED 235 10^3/uL (150-450); RED BLOOD COUNT 3.51 10^6/uL (4.30-6.10); WHITE BLOOD COUNT 8.5 10^3/uL (4.0-10.0)
[2018-07-31 06:48] LABS: CREATININE FOR GFR 2.86 MG/DL (0.70-1.30); GLOMERULAR FILTRATION RATE 23.1 (>42); POTASSIUM SERUM 4.8 MEQ/L (3.5-5.1)
[2018-07-31 08:00] VITALS: BP 110/66
[2018-07-31] MEDS: EUCERIN 120GM CREAM TOP SCH ×2 (08:33→20:30)
[2018-07-31] MEDS: CitaloPRAM (CeleXA) 10 MG TABLET PO SCH (08:33)
[2018-07-31] MEDS: HumaLOG INSULIN (NovoLOG) PER UNIT SC SCH ×4 (08:34→20:34)
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
[2018-07-31 12:00] VITALS: BP 96/66
[2018-07-31] MEDS ORDERED: PATIROMER SORBITEX CALCIUM 8.4 GM POWDER PACKET (VELTASSA) PO SCH (12:00)
[2018-07-31] MEDS ORDERED: CHLOROTHIAZIDE 500 MG VIAL (J1205) IV ONE (14:00)
[2018-07-31] MEDS ORDERED: BISACODYL 5 MG TAB PO ONE (14:00)
[2018-07-31] MEDS: PERCOCET 5MG/325MG TAB PO PRN ×2 (14:28→20:28)
[2018-07-31] MEDS: hydrOXYzine 25 MG TAB PO PRN (15:09)
[2018-07-31 16:00] VITALS: BP 86/58
[2018-07-31] MEDS: FUROSEMIDE 100 MG/10 ML VIAL (J1940) IV SCH (16:49)
[2018-07-31 20:00] VITALS: BP 109/70
[2018-07-31] MEDS: FEBUXOSTAT 40 MG TABLET (ULORIC) PO SCH (20:27)
[2018-07-31] MEDS: VITAMIN D 1,000 INTERNATIONAL UNITS TABLET PO SCH (20:27)
[2018-07-31] MEDS: DULoxetine 20 MG CAP (CYMBALTA) PO SCH (20:27)
[2018-07-31] MEDS: TAMSULOSIN 0.4 MG CAP PO SCH (20:27)
[2018-07-31] MEDS: CLOPIDOGREL 75 MG TAB PO SCH (20:27)
[2018-07-31] MEDS: ASPIRIN 81 MG ENTERIC TAB PO SCH (20:27)
[2018-07-31] MEDS: OMEPRAZOLE 20 MG CAP PO SCH (20:27)
[2018-07-31] MEDS: FINASTERIDE 5 MG TAB PO SCH (20:27)
[2018-07-31] MEDS: DOBUTamine HCL 500,000 MCG in APPROPRIATE DILUENT 1 EA IV SCH (22:00)
[2018-07-31 23:59] VITALS: BP 127/86
[2018-08-01] MEDS: hydrOXYzine 25 MG TAB PO PRN (00:40)
[2018-08-01] MEDS: FUROSEMIDE 100 MG/10 ML VIAL (J1940) IV SCH ×2 (00:41→09:08)
[2018-08-01] MEDS: SODIUM CHLORIDE 0.9% INJ 10 ML SYR IV PRN (00:42)
[2018-08-01] MEDS: IPRATROPIUM 0.5MG/ALBUTEROL 2.5MG INH SOL UD 3ML (DUONEB)(J7620) NEB SCH ×4 (02:00→20:00)
[2018-08-01] MEDS: PERCOCET 5MG/325MG TAB PO PRN ×2 (03:46→09:48)
[2018-08-01 04:00] VITALS: BP 120/73
[2018-08-01] MEDS: LEVOTHYROXINE 25MCG TABLET (0.025MG) PO SCH (05:47)
[2018-08-01] MEDS: SODIUM CHLORIDE 0.9% INJ 10 ML SYR IV SCH (05:47)
[2018-08-01 06:00] LABS: BASO # 0.1 10^3/uL (0.0-0.2); BASO % 0.5 % (0.0-1.0); EOS # 0.5 10^3/uL (0.0-0.50); EOS % 5.3 % (0.0-3.0); HEMATOCRIT 31.6 % (42.0-52.0); HEMOGLOBIN 9.9 g/dl (13.5-17.5); LYMPH # 1.2 10^3/uL (1.5-4.5); LYMPH % 11.6 % (24.0-44.0); MEAN CORPUSCULAR HEMOGLOBIN 28.4 pg (27.0-33.0); MEAN CORPUSCULAR HGB CONC 31.3 g/dl (32.0-36.5); MEAN CORPUSCULAR VOLUME 90.8 fl (80.0-96.0); MONO # 0.7 10^3/uL (0.0-0.8); MONO % 6.7 % (0.0-5.0); NEUTROPHILS # 7.8 10^3/uL (1.8-7.7); NEUTROPHILS % 75.3 % (36.0-66.0); PLATELET COUNT, AUTOMATED 243 10^3/uL (150-450); RED BLOOD COUNT 3.48 10^6/uL (4.30-6.10); WHITE BLOOD COUNT 10.3 10^3/uL (4.0-10.0)
[2018-08-01 06:43] LABS: CALCIUM LEVEL 8.8 MG/DL (8.8-10.2); CREATININE FOR GFR 2.81 MG/DL (0.70-1.30); GLOMERULAR FILTRATION RATE 23.6 (>42); POTASSIUM SERUM 4.5 MEQ/L (3.5-5.1)
[2018-08-01 08:08] VITALS: BP 113/63
[2018-08-01] MEDS ORDERED: MOM 30ML SUSPENSION UDC PO ONE (08:45)
[2018-08-01] MEDS ORDERED: MIRALAX *UNIT DOSE* 17GM PACKET PO SCH (09:00)
[2018-08-01] MEDS ORDERED: SENOKOT S TAB PO SCH (09:00)
[2018-08-01] MEDS: CitaloPRAM (CeleXA) 10 MG TABLET PO SCH (09:07)
[2018-08-01] MEDS: HumaLOG INSULIN (NovoLOG) PER UNIT SC SCH (09:07)
[2018-08-01] MEDS: EUCERIN 120GM CREAM TOP SCH (09:08)
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
[2018-08-01] MEDS ORDERED: MORPHINE 4 MG/ML 1ML VIAL/SYRINGE (J2270) IV PRN (10:15)
[2018-08-01] MEDS ORDERED: LORazepam 2 MG/ML VIAL (J2060) IV PRN (10:15)
[2018-08-01] MEDS ORDERED: MORPHINE 4 MG/ML 1ML VIAL/SYRINGE (J2270) IV ONE (10:15)
[2018-08-01] MEDS ORDERED: ONDANSETRON 4MG/2ML VIAL (J2405) IV PRN (10:15)
[2018-08-01] MEDS ORDERED: SCOPOLAMINE 1MG TRANSDERMAL PATCH TOP PRN (10:15)
--- NOTE | 2018-08-01 10:16 | REP ---
Portable chest, 09:51 a.m., single AP view, the patient sitting: Comparison is 07/29/2018. There is a right pleural effusion, not significantly changed. Cardiomegaly and sternotomy wires are again identified. There is dehiscence of many of the sternotomy wires, unchanged. There is a single lead pacemaker / AICD, unchanged. There is a right subclavian central venous catheter with the tip in the superior vena cava, unchanged. Electronically Signed by Sahil Tracy MD 08/01/2018 10:08 A
[2018-08-01] MEDS: MORPHINE SULF IN 0.9% NACL 100 MG in APPROPRIATE DILUENT 1 EA IV SCH ×2 (11:39)
--- NOTE | 2018-08-01 12:08 | IPN ---
DATE: 07/31/2018 SUBJECTIVE: Patient was seen and examined at the bedside today morning. There is no significant clinical improvement in the status of this patient. I am seeing this patient after two weeks and he is persistently in the hospital dependent upon dobutamine infusion and severe decompensated heart failure causing cardiorenal syndrome and kidney failure as well. I was told by the hospitalist team that they have tried getting in touch with the various heart transplant and heart failure centers and patient is deemed not a surgical candidate for any ventricular-assist device or destination inotrope therapy so far. The patient continues to be on IV diuretics and IV dobutamine infusion. The patient seems depressed today. He is otherwise hemodynamically stable. OBJECTIVE: VITAL SIGNS: Temperature is 97 degrees Fahrenheit. Blood pressure 96/66, pulse is 108, respiratory rate of 22, saturating 96% on room air. Intake and output: Urine output recorded so far is 325 mL. Weight on the bed scale is 76.9 kg. PHYSICAL EXAMINATION: GENERAL: The patient is awake, alert and oriented times three. Sitting up in the bed. Mild respiratory distress. HEAD/NECK: Extraocular muscles intact. Pupils equally round and reactive to light. Mucous membranes are moist. Neck is supple. There is significantly elevated jugular venous distention (JVD). CARDIOVASCULAR: S1, S2, tachycardia. Irregular heart rate. 2+ edema of the bilateral lower extremities. RESPIRATORY: Decreased breath sounds at the bases with mild expiratory rhonchi bilaterally. ABDOMEN: Soft. Mildly distended. Moderate amount of ascites was noted. GENITOURINARY: Patient has no Davis catheter at this time. Bladder is nonpalpable. MUSCULOSKELETAL: Bilateral lower extremity edema, 2+ up to the thighs. There is even abdominal wall edema as well. CENTRAL NERVOUS SYSTEM: No focal deficit. Power is 5/5 in bilateral upper extremities. AV ACCESS: Patient has a right upper arm PICC line. LAB REVIEW: CBC showed a WBC of 8.5, hemoglobin 10, platelets are 235. BMP showed sodium 129, potassium 4.8, chloride 89, bicarbonate 31, BUN 109, creatinine is 2.8. GFR is 23. CURRENT INPATIENT MEDICATIONS: Patient's medications were all reviewed by me. He continues to be on IV dobutamine infusion at 1.5 mcg per kg per hour. Sodium 1.5 mcg per kg per minute. I have started the patient on chlorothiazide 500 mg IV x one dose and he is also started on furosemide 80 mg IV every 8 hourly with a net negative fluid balance target of 1.5 liters daily. He is also on Veltassa 16.8 grams by mouth daily. No other change in the medications today as compared with yesterday. ASSESSMENT AND PLAN: 1. Acute kidney injury superimposed on chronic kidney disease. It is secondary to cardiorenal syndrome and decompensated congestive heart failure. Patient is dependent upon ionotropic support. He is still fluid overloaded. I have started the patient on Lasix 80 mg IV every 8 hourly and 1 dose of Diuril to help with the sequential nephron blockade. 2. Ischemic cardiomyopathy. Patient has severe biventricular heart failure. Hypotensive at baseline. Dependent upon ionotropic support. He continues to be on dobutamine at 1.5 mcg per kg per minute. Overall he has a very poor prognosis. Continue the diuretic regimen as mentioned above. 3. Hyperkalemia. It is secondary to progressive renal failure. He continues to be on Veltassa 16.8 grams by mouth daily. Continue current dose. 4. Hyponatremia. Patient has hypervolemic hyponatremia. Sodium level is expected to improve with further diuresis. 5. BPH with recurrent urinary retention. Continue daily bladder scans with straight catheterizations as needed. Continue current dose of Flomax 0.4 mg o at bedtime. 6. Recurrent right-sided pleural effusion. It is secondary to decompensated congestive heart failure. Continue the diuresis at this point. Patient needed a chest tube on previous hospitalization, but effusion recurs because of heart failure. 7. DISPOSITION: Overall, patient has a very poor prognosis. He has ionotropic dependent heart failure. I would not offer hemodialysis to this patient. Maximum medical optimization at this point. I again offered palliative care and Hospice evaluation to the patient, but he is refusing.
[2018-08-02] MEDS: IPRATROPIUM 0.5MG/ALBUTEROL 2.5MG INH SOL UD 3ML (DUONEB)(J7620) NEB SCH ×4 (01:06→20:00)
[2018-08-02] MEDS: MORPHINE SULF IN 0.9% NACL 100 MG in APPROPRIATE DILUENT 1 EA IV SCH ×2 (11:00)
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
[2018-08-03] MEDS: MORPHINE SULF IN 0.9% NACL 100 MG in APPROPRIATE DILUENT 1 EA IV SCH ×4 (00:09→18:02)
[2018-08-03] MEDS: IPRATROPIUM 0.5MG/ALBUTEROL 2.5MG INH SOL UD 3ML (DUONEB)(J7620) NEB SCH ×4 (01:30→22:52)
[2018-08-03] MEDS: ATROPINE SULFATE 1% OP SOLN 2 ML BTL SL PRN ×4 (05:56→22:32)
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
[2018-08-04] MEDS: IPRATROPIUM 0.5MG/ALBUTEROL 2.5MG INH SOL UD 3ML (DUONEB)(J7620) NEB SCH (02:00)
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
== END 2018-08-04 05:15 | disposition expired | DRG 198 ==
LOC: M ED 16:30 → M ED INP 23:10 → M ICU 07-14 00:44 → M PCU 07-16 20:25 → M MS5PR 08-02 00:02
PROVIDERS: ADMIT Surgery; ATTEND Internal Medicine Nephrology
PROC: 02HV33Z Insertion of Infusion Device into Superior Vena Cava, Percutaneous Approach (ICD-10-PCS; principal; 2018-07-27)
DX: I25.5 Ischemic cardiomyopathy (principal); R57.0 Cardiogenic shock; I50.43 Acute on chronic combined systolic (congestive) and diastolic (congestive) heart failure; J90 Pleural effusion, not elsewhere classified; N18.4 Chronic kidney disease, stage 4 (severe); E11.42 Type 2 diabetes mellitus with diabetic polyneuropathy; N17.9 Acute kidney failure, unspecified; S22.41XA Multiple fractures of ribs, right side, initial encounter for closed fracture; I95.9 Hypotension, unspecified; I13.0 Hypertensive heart and chronic kidney disease with heart failure and stage 1 through stage 4 chronic kidney disease, or unspecified chronic kidney disease; I27.20 Pulmonary hypertension, unspecified; J44.9 Chronic obstructive pulmonary disease, unspecified; E87.1 Hypo-osmolality and hyponatremia; D63.1 Anemia in chronic kidney disease; I34.0 Nonrheumatic mitral (valve) insufficiency; Z51.5 Encounter for palliative care; Z66 Do not resuscitate; I25.10 Atherosclerotic heart disease of native coronary artery without angina pectoris; E03.9 Hypothyroidism, unspecified; M10.9 Gout, unspecified; V40.5XXA Car driver injured in collision with pedestrian or animal in traffic accident, initial encounter; Y92.410 Unspecified street and highway as the place of occurrence of the external cause; N40.1 Benign prostatic hyperplasia with lower urinary tract symptoms; Z95.1 Presence of aortocoronary bypass graft; K21.9 Gastro-esophageal reflux disease without esophagitis; F32.9 Major depressive disorder, single episode, unspecified; F41.9 Anxiety disorder, unspecified; Z79.82 Long term (current) use of aspirin; Z79.899 Other long term (current) drug therapy